=== PATIENT | female | born 1945 | race Caucasian/White ===

== ENCOUNTER → 2016-11-25 | Outpatient (CLI) | payer BC ==
--- NOTE | 2016-11-25 13:27 | DIAGNOSTIC IMAGING REPORT ---
EXTREMITY NONVASCULAR LIMITED HISTORY:71 yearsFemaleAXILLARY LUMP, palpable abnormality of the right axillary region with bruising. COMPARISON: None available. TECHNIQUE: Multiple real-time sonographic images of the right axillary region were obtained assessing grayscale appearance and color flow. FINDINGS: Within the region of the right axilla there is a essentially anechoic linear collection without internal vascularity and somewhat lobulated margins, 2.8 x 1.6 x 0.8 cm. No suspicious mass or definite adenopathy identified. IMPRESSION: Cystic lesion of the right axilla measuring up to 2.8 cm correlates with area of palpable concern. Considering history of bruise within this region , resolving hematoma is considered most likely. Follow-up study may be beneficial. The above report was generated using voice recognition software. It may contain grammatical, syntax or spelling errors. Electronically signed by: Chucho Potter 11/25/2016 1:26 PM Dictated Date/Time: 11/25/2016 1:19 PM
== END | disposition home or self-care (01) ==
LOC: C.ULTR 12:23
PROVIDERS: ATTEND Internal Medicine Hematology & Oncology
DX: R22.31 Localized swelling, mass and lump, right upper limb (principal)

== ENCOUNTER 2018-07-24 11:42 | Inpatient (IN) ==
[2018-07-24 12:17] LABS: Basophils # (auto) 0.01 K/uL (0-0.2); Basophils % (auto) 0.3 %; Eosinophils # (auto) 0.05 K/uL (0-0.5); Eosinophils % (auto) 1.4 %; Hematocrit (blood only) 37.2 % (37-47); Hemoglobin 12.9 g/dL (12.0-16.0); Immature Granulocytes # (auto) 0.02 K/uL (0.00-0.02); Immature Granulocytes % (auto) 0.6 %; Lymphocytes # (auto) 0.24 K/uL (1.2-3.4); Lymphocytes % (auto) 6.8 %; Mean Corpuscular Hgb Conc 34.7 g/dL (32-36); Mean Corpuscular Volume 92.1 fL (80-100); Mean Platelet Volume 9.6 fL (7.4-10.4); Monocytes # (auto) 0.26 K/uL (0.11-0.59); Monocytes % (auto) 7.4 %; Neutrophils # (auto) 2.95 K/uL (1.4-6.5); Neutrophils % (auto) 83.5 %; Platelet Count 168 K/uL (130-400); RDW Coefficient of Variation 12.8 % (11.5-14.5); RDW Standard Deviation 43.1 fL (36.4-46.3); Red Blood Count 4.04 M/uL (4.2-5.4); White Blood Count 3.53 K/uL (4.8-10.8)
[2018-07-24 12:33] LABS: INR 1.1 (0.9-1.1); Partial Thromboplastin Ratio 0.9; Partial Thromboplastin Time 24.3 Seconds (21.0-31.0); Prothrombin Time 10.8 Seconds (9.0-12.0)
[2018-07-24 12:39] LABS: Alanine Aminotransferase 40 U/L (12-78); Albumin Level 3.4 gm/dl (3.4-5.0); Alkaline Phosphatase 79 U/L (45-117); Aspartate Aminotransferase 93 U/L (15-37); Bilirubin,Total 0.5 mg/dl (0.2-1); Blood Urea Nitrogen 27 mg/dl (7-18); Calcium 8.5 mg/dl (8.5-10.1); Carbon Dioxide 29 mmol/L (21-32); Chloride 84 mmol/L (98-107); Est GFR (African American) 39.8; Est GFR (Non-African American) 34.4; Globulin 3.5 gm/dl (2.5-4.0); Glucose 103 mg/dl (70-99); Magnesium 0.7 mg/dl (1.8-2.4); Potassium 2.8 mmol/L (3.5-5.1); Sodium 128 mmol/L (136-145); Total Protein 6.9 gm/dl (6.4-8.2); Troponin I 0.028 ng/ml (0-0.045)
[2018-07-24] MEDS ORDERED: dilTIAZem HCl 5 MG/ML 5 ML VIAL IV STA (12:42)
[2018-07-24] MEDS ORDERED: LACTATED RINGER'S 1,000 ML IV ONE (12:42)
[2018-07-24] MEDS ORDERED: dilTIAZem HCl 125 MG in DEXTROSE 5% 100 ML IV SCH (12:45)
[2018-07-24] MEDS: MAGNESIUM SULFATE / D5W 1 GM/100 ML BAG IV SCH ×2 (13:17→14:15)
--- NOTE | 2018-07-24 13:21 | XRay Report ---
XR chest 1V portable CLINICAL HISTORY: ED critical path. Dyspnea COMPARISON STUDY: 04/05/2018 FINDINGS: The bones soft tissues and hemidiaphragms are normal. The cardiomediastinal silhouette is n ormal. The lungs are clear. The pulmonary vasculature is normal. IMPRESSION: Negative chest. The above report was generated using voice recognition software. It may contain grammatical, syntax or spelling errors. Electronically signed by: Boone Boss M.D. 07/24/2018 1:19 PM
--- NOTE | 2018-07-24 13:43 | CT Scan Report ---
CT cervical spine wo con CT DOSE: HISTORY: Trauma fall TECHNIQUE: Multiaxial CT images of the cervical spine were performed and reformatted in the sagittal and coronal plane without the use of contrast. A dose lowering technique was utilized adhering to th e principles of ALARA. COMPARISON: None. FINDINGS: No fractures. No subluxation. Prevertebral soft tissues and the C1-C2 interval are intact. No pneumothorax. IMPRESSION: No fractures within the cervical spine. Degenerative change throughout the entire cervical region. The above report was generated using voice recognition software. It may contain grammatical, syntax or spelling errors. Electronically signed by: Boone Boss M.D. 07/24/2018 1:42 PM
--- NOTE | 2018-07-24 13:45 | CT Scan Report ---
CT head/brain wo con CLINICAL HISTORY: 72 years-old Female presenting with fall, confusion. TECHNIQUE: Multidetector CT imaging of the head was performed without the use of intravenous contrast . IV contrast: None. One or more dose lowering techniques were used consistent with the principles of ALARA (as low as reasonably achievable), including automatic exposure control, mA or kV adjustment t o individual patient size, and/or use of iterative reconstruction. COMPARISON: 04/05/2018. CT DOSE (mGy.cm): The estimated cumulative dose is 863.75 mGy.cm. FINDINGS: Chief Underwriter topogram: Unremarkable. Proportional ventricular and sulcal prominence, likely age-related parenchymal volume loss. No hemorr conrad. Periventricular and subcortical white matter hypoattenuation, nonspecific but likely indicative of chronic small vessel ischemic change. No acute territorial infarct. No mass effect or midline kailash ft. No extra-axial fluid collection. Paranasal sinuses and mastoid air cells clear. Calvarium intact. IMPRESSION: 1. Chronic small vessel ischemic change. No acute intracranial abnormality. Electronically signed by: Inocente Patton M.D. 07/24/2018 1:44 PM
[2018-07-24] MEDS ORDERED: dilTIAZem HCl 5 MG/ML 5 ML VIAL IV ONE (14:13)
--- NOTE | 2018-07-24 14:17 | Emergency Department Note ---
Entered by Kristy Meraz acting as a scribe for Escobar Guerrero M.D. History of Present Illness General Chief complaint: Altered Mental Status Stated complaint: Fall Source: patient Mode of arrival: ambulatory Limitations: no limitations History of Present Illness Onset (ago): day(s) (this morning. ) Location: head (altered mental status) Pain Consistency: + other (episode) Quality: + other (dizziness) Associated symptoms: + other (The patient complains of dizziness.); no chest pain, no shortness of breath and no syncope The patient is a 72 year old female with a history of falls who presents to the ED with complaints of an episode altered mental status that onset this morning. She notes that she was trying to lift a table to take up a flight of stairs and when she turned a corner, she caught herself on the carpet. She notes that she fell backwards in a seated position. The patient denies being hurt by the table. The patient complains of dizziness. The patient denies loss of consciousness, chest pain, and shortness of breath. She notes that she does not feel confused but that she had trouble answering some questions she was asked by staff. The patient states that she did not eat today. She notes that she lives by herself. She denies drinking alcohol today but states that she had 2 drinks last night. The patient states that she drinks a big glass of vodka and that people tell her that she should cut down on her alcohol intake. The patient notes that she takes Xanax at night to help her sleep. Home Medications Home Medications Medication Instructions Recorded Confirmed Type alprazolam [Xanax] 1 mg PO BID 07/24/18 07/24/18 History amlodipine 2.5 mg PO DAILY 07/24/18 07/24/18 History metoprolol succinate 25 mg PO DAILY 07/24/18 07/24/18 History trazodone 50 mg PO DAILY 07/24/18 07/24/18 History Allergies Allergy/AdvReac Type Severity Reaction Status Date / Time Penicillins Allergy Unknown CAN'T Verified 07/24/18 14:09 REMEMBER [facility] Allergy Unknown CAN'T Uncoded 07/24/18 14:09 REMEMBER-SEE COMMENT Past Med/Surg History Medical History Hx of falling Depression Insomnia Tobacco abuse Chronic alcohol abuse H/O: hysterectomy Pneumonia (Resolved) Hypertension (Chronic) Social History Preferred Language: Montenegrin Communication Ability: Effective 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 and A total of 10 systems reviewed and were otherwise negative Physical Exam Vital Signs Vital Signs - 24 hr 07/24/18 11:36 07/24/18 11:56 07/24/18 11:58 Temperature 36.9 C Temperature Source Oral Sepsis Recent Fever Within 48 Hours No Sepsis New/Unexplained Change in Mental Status No Sepsis Action Taken by Nursing No Action Required Pulse Rate 127 H 125 H 134 H Pulse Rate [Right Radial] Pulse Rate from SpO2 Sensor 120 H 134 H Pulse Rhythm Irregular Pulse Rhythm [Right Radial] Pulse Strength Normal Pulse Strength [Right Radial] Respiratory Rate 22 23 20 Respiratory Effort / Characteristics Non-Labored Spontaneous Respiratory Depth Normal Respiratory Pattern Regular Blood Pressure 100/88 100/88 Blood Pressure [Right Arm] Blood Pressure Mean 92 92 Blood Pressure Mean [Right Arm] Blood Pressure Position Lying Blood Pressure Position [Right Arm] Pulse Oximetry 93 Pulse Oximetry [Right Index Finger] Oxygen Delivery Method Room Air Oxygen Delivery Method [Right Index Finger] 07/24/18 12:00 07/24/18 12:01 07/24/18 12:09 Temperature Temperature Source Sepsis Recent Fever Within 48 Hours Sepsis New/Unexplained Change in Mental Status Sepsis Action Taken by Nursing Pulse Rate 124 H 130 H 127 H Pulse Rate [Right Radial] Pulse Rate from SpO2 Sensor 112 H 95 H Pulse Rhythm Pulse Rhythm [Right Radial] Pulse Strength Pulse Strength [Right Radial] Respiratory Rate 17 21 22 Respiratory Effort / Characteristics Respiratory Depth Respiratory Pattern Blood Pressure 106/79 Blood Pressure [Right Arm] Blood Pressure Mean 88 Blood Pressure Mean [Right Arm] Blood Pressure Position Blood Pressure Position [Right Arm] Pulse Oximetry 99 95 93 Pulse Oximetry [Right Index Finger] Oxygen Delivery Method Room Air Oxygen Delivery Method [Right Index Finger] 07/24/18 12:10 07/24/18 12:20 07/24/18 12:30 Temperature Temperature Source Sepsis Recent Fever Within 48 Hours Sepsis New/Unexplained Change in Mental Status Sepsis Action Taken by Nursing Pulse Rate 115 H 113 H 120 H Pulse Rate [Right Radial] Pulse Rate from SpO2 Sensor 107 H 109 H 98 H Pulse Rhythm Pulse Rhythm [Right Radial] Pulse Strength Pulse Strength [Right Radial] Respiratory Rate 20 21 23 Respiratory Effort / Characteristics Respiratory Depth Respiratory Pattern Blood Pressure 88/66 L Blood Pressure [Right Arm] Blood Pressure Mean 73 Blood Pressure Mean [Right Arm] Blood Pressure Position Blood Pressure Position [Right Arm] Pulse Oximetry 99 99 97 Pulse Oximetry [Right Index Finger] Oxygen Delivery Method Oxygen Delivery Method [Right Index Finger] 07/24/18 12:31 07/24/18 12:40 07/24/18 12:50 Temperature Temperature Source Sepsis Recent Fever Within 48 Hours Sepsis New/Unexplained Change in Mental Status Sepsis Action Taken by Nursing Pulse Rate 111 H 105 H 131 H Pulse Rate [Right Radial] Pulse Rate from SpO2 Sensor 87 103 H 116 H Pulse Rhythm Pulse Rhythm [Right Radial] Pulse Strength Pulse Strength [Right Radial] Respiratory Rate 18 20 25 H Respiratory Effort / Characteristics Respiratory Depth Respiratory Pattern Blood Pressure Blood Pressure [Right Arm] Blood Pressure Mean Blood Pressure Mean [Right Arm] Blood Pressure Position Blood Pressure Position [Right Arm] Pulse Oximetry 94 95 Pulse Oximetry [Right Index Finger] Oxygen Delivery Method Oxygen Delivery Method [Right Index Finger] 07/24/18 13:00 07/24/18 13:10 07/24/18 13:20 Temperature Temperature Source Sepsis Recent Fever Within 48 Hours Sepsis New/Unexplained Change in Mental Status Sepsis Action Taken by Nursing Pulse Rate 110 H 113 H 103 H Pulse Rate [Right Radial] Pulse Rate from SpO2 Sensor 106 H 105 H 91 H Pulse Rhythm Pulse Rhythm [Right Radial] Pulse Strength Pulse Strength [Right Radial] Respiratory Rate 25 H 27 H 21 Respiratory Effort / Characteristics Respiratory Depth Respiratory Pattern Blood Pressure Blood Pressure [Right Arm] Blood Pressure Mean Blood Pressure Mean [Right Arm] Blood Pressure Position Blood Pressure Position [Right Arm] Pulse Oximetry 96 95 Pulse Oximetry [Right Index Finger] Oxygen Delivery Method Oxygen Delivery Method [Right Index Finger] 07/24/18 13:22 07/24/18 13:39 07/24/18 13:40 Temperature Temperature Source Sepsis Recent Fever Within 48 Hours Sepsis New/Unexplained Change in Mental Status Sepsis Action Taken by Nursing Pulse Rate 101 H 93 H 110 H Pulse Rate [Right Radial] Pulse Rate from SpO2 Sensor 86 92 H 107 H Pulse Rhythm Pulse Rhythm [Right Radial] Pulse Strength Pulse Strength [Right Radial] Respiratory Rate 26 H 24 19 Respiratory Effort / Characteristics Respiratory Depth Respiratory Pattern Blood Pressure 110/79 Blood Pressure [Right Arm] Blood Pressure Mean 89 Blood Pressure Mean [Right Arm] Blood Pressure Position Blood Pressure Position [Right Arm] Pulse Oximetry 94 99 Pulse Oximetry [Right Index Finger] Oxygen Delivery Method Oxygen Delivery Method [Right Index Finger] 07/24/18 13:50 07/24/18 14:00 07/24/18 14:01 Temperature Temperature Source Sepsis Recent Fever Within 48 Hours Sepsis New/Unexplained Change in Mental Status Sepsis Action Taken by Nursing Pulse Rate 85 82 78 Pulse Rate [Right Radial] Pulse Rate from SpO2 Sensor 86 87 91 H Pulse Rhythm Pulse Rhythm [Right Radial] Pulse Strength Pulse Strength [Right Radial] Respiratory Rate 20 12 18 Respiratory Effort / Characteristics Respiratory Depth Respiratory Pattern Blood Pressure 116/77 Blood Pressure [Right Arm] Blood Pressure Mean 90 Blood Pressure Mean [Right Arm] Blood Pressure Position Blood Pressure Position [Right Arm] Pulse Oximetry 98 97 Pulse Oximetry [Right Index Finger] Oxygen Delivery Method Oxygen Delivery Method [Right Index Finger] 07/24/18 14:10 07/24/18 14:20 07/24/18 14:30 Temperature Temperature Source Sepsis Recent Fever Within 48 Hours Sepsis New/Unexplained Change in Mental Status Sepsis Action Taken by Nursing Pulse Rate 99 H 83 86 Pulse Rate [Right Radial] Pulse Rate from SpO2 Sensor 95 H 81 88 Pulse Rhythm Pulse Rhythm [Right Radial] Pulse Strength Pulse Strength [Right Radial] Respiratory Rate 21 21 18 Respiratory Effort / Characteristics Respiratory Depth Respiratory Pattern Blood Pressure 119/77 Blood Pressure [Right Arm] Blood Pressure Mean 91 Blood Pressure Mean [Right Arm] Blood Pressure Position Blood Pressure Position [Right Arm] Pulse Oximetry 98 96 99 Pulse Oximetry [Right Index Finger] Oxygen Delivery Method Oxygen Delivery Method [Right Index Finger] 07/24/18 14:31 07/24/18 14:40 07/24/18 14:50 Temperature Temperature Source Sepsis Recent Fever Within 48 Hours Sepsis New/Unexplained Change in Mental Status Sepsis Action Taken by Nursing Pulse Rate 84 84 76 Pulse Rate [Right Radial] Pulse Rate from SpO2 Sensor 81 81 86 Pulse Rhythm Pulse Rhythm [Right Radial] Pulse Strength Pulse Strength [Right Radial] Respiratory Rate 21 20 20 Respiratory Effort / Characteristics Respiratory Depth Respiratory Pattern Blood Pressure Blood Pressure [Right Arm] Blood Pressure Mean Blood Pressure Mean [Right Arm] Blood Pressure Position Blood Pressure Position [Right Arm] Pulse Oximetry 97 99 93 Pulse Oximetry [Right Index Finger] Oxygen Delivery Method Oxygen Delivery Method [Right Index Finger] 07/24/18 15:00 07/24/18 15:01 07/24/18 15:10 Temperature Temperature Source Sepsis Recent Fever Within 48 Hours Sepsis New/Unexplained Change in Mental Status Sepsis Action Taken by Nursing Pulse Rate 85 88 90 Pulse Rate [Right Radial] Pulse Rate from SpO2 Sensor 92 H 91 H 84 Pulse Rhythm Pulse Rhythm [Right Radial] Pulse Strength Pulse Strength [Right Radial] Respiratory Rate 16 28 H 18 Respiratory Effort / Characteristics Respiratory Depth Respiratory Pattern Blood Pressure 129/85 Blood Pressure [Right Arm] Blood Pressure Mean 99 Blood Pressure Mean [Right Arm] Blood Pressure Position Blood Pressure Position [Right Arm] Pulse Oximetry 94 96 96 Pulse Oximetry [Right Index Finger] Oxygen Delivery Method Oxygen Delivery Method [Right Index Finger] 07/24/18 15:20 07/24/18 15:30 07/24/18 15:31 Temperature Temperature Source Sepsis Recent Fever Within 48 Hours Sepsis New/Unexplained Change in Mental Status Sepsis Action Taken by Nursing Pulse Rate 81 90 84 Pulse Rate [Right Radial] Pulse Rate from SpO2 Sensor 91 H 88 84 Pulse Rhythm Pulse Rhythm [Right Radial] Pulse Strength Pulse Strength [Right Radial] Respiratory Rate 14 21 21 Respiratory Effort / Characteristics Respiratory Depth Respiratory Pattern Blood Pressure 124/89 Blood Pressure [Right Arm] Blood Pressure Mean 100 Blood Pressure Mean [Right Arm] Blood Pressure Position Blood Pressure Position [Right Arm] Pulse Oximetry 94 93 94 Pulse Oximetry [Right Index Finger] Oxygen Delivery Method Oxygen Delivery Method [Right Index Finger] 07/24/18 15:40 07/24/18 15:50 07/24/18 16:00 Temperature Temperature Source Sepsis Recent Fever Within 48 Hours Sepsis New/Unexplained Change in Mental Status Sepsis Action Taken by Nursing Pulse Rate 97 H 100 H 92 H Pulse Rate [Right Radial] Pulse Rate from SpO2 Sensor 94 H 90 82 Pulse Rhythm Pulse Rhythm [Right Radial] Pulse Strength Pulse Strength [Right Radial] Respiratory Rate 21 22 22 Respiratory Effort / Characteristics Respiratory Depth Respiratory Pattern Blood Pressure Blood Pressure [Right Arm] Blood Pressure Mean Blood Pressure Mean [Right Arm] Blood Pressure Position Blood Pressure Position [Right Arm] Pulse Oximetry 96 78 L 93 Pulse Oximetry [Right Index Finger] Oxygen Delivery Method Oxygen Delivery Method [Right Index Finger] 07/24/18 16:01 07/24/18 16:02 07/24/18 16:10 Temperature Temperature Source Sepsis Recent Fever Within 48 Hours Sepsis New/Unexplained Change in Mental Status Sepsis Action Taken by Nursing Pulse Rate 84 92 H 89 Pulse Rate [Right Radial] Pulse Rate from SpO2 Sensor 93 H 90 92 H Pulse Rhythm Pulse Rhythm [Right Radial] Pulse Strength Pulse Strength [Right Radial] Respiratory Rate 23 21 23 Respiratory Effort / Characteristics Respiratory Depth Respiratory Pattern Blood Pressure 127/74 Blood Pressure [Right Arm] Blood Pressure Mean 91 Blood Pressure Mean [Right Arm] Blood Pressure Position Blood Pressure Position [Right Arm] Pulse Oximetry 91 98 98 Pulse Oximetry [Right Index Finger] Oxygen Delivery Method Oxygen Delivery Method [Right Index Finger] 07/24/18 16:20 07/24/18 16:30 07/24/18 16:31 Temperature Temperature Source Sepsis Recent Fever Within 48 Hours Sepsis New/Unexplained Change in Mental Status Sepsis Action Taken by Nursing Pulse Rate 95 H 89 88 Pulse Rate [Right Radial] Pulse Rate from SpO2 Sensor 87 83 88 Pulse Rhythm Pulse Rhythm [Right Radial] Pulse Strength Pulse Strength [Right Radial] Respiratory Rate 23 22 19 Respiratory Effort / Characteristics Respiratory Depth Respiratory Pattern Blood Pressure 127/80 Blood Pressure [Right Arm] Blood Pressure Mean 95 Blood Pressure Mean [Right Arm] Blood Pressure Position Blood Pressure Position [Right Arm] Pulse Oximetry 93 97 97 Pulse Oximetry [Right Index Finger] Oxygen Delivery Method Oxygen Delivery Method [Right Index Finger] 07/24/18 16:40 07/24/18 17:19 07/24/18 17:27 Temperature 36.9 C Temperature Source Oral Sepsis Recent Fever Within 48 Hours Sepsis New/Unexplained Change in Mental Status Sepsis Action Taken by Nursing Pulse Rate 93 H Pulse Rate [Right Radial] Pulse Rate from SpO2 Sensor 85 Pulse Rhythm Pulse Rhythm [Right Radial] Regular Pulse Strength Pulse Strength [Right Radial] Normal Respiratory Rate 22 16 Respiratory Effort / Characteristics Non-Labored Respiratory Depth Normal Respiratory Pattern Regular Blood Pressure Blood Pressure [Right Arm] 126/88 Blood Pressure Mean Blood Pressure Mean [Right Arm] 100 Blood Pressure Position Blood Pressure Position [Right Arm] Lying Pulse Oximetry 95 93 Pulse Oximetry [Right Index Finger] 93 Oxygen Delivery Method Room Air Oxygen Delivery Method [Right Index Finger] Room Air 07/24/18 18:04 07/24/18 18:56 Temperature 37.0 C Temperature Source Oral Sepsis Recent Fever Within 48 Hours Sepsis New/Unexplained Change in Mental Status Sepsis Action Taken by Nursing Pulse Rate 102 H Pulse Rate [Right Radial] 84 Pulse Rate from SpO2 Sensor Pulse Rhythm Pulse Rhythm [Right Radial] Pulse Strength Pulse Strength [Right Radial] Respiratory Rate 20 Respiratory Effort / Characteristics Respiratory Depth Respiratory Pattern Blood Pressure Blood Pressure [Right Arm] 121/85 Blood Pressure Mean Blood Pressure Mean [Right Arm] 97 Blood Pressure Position Blood Pressure Position [Right Arm] Lying Pulse Oximetry 98 Pulse Oximetry [Right Index Finger] Oxygen Delivery Method Room Air Oxygen Delivery Method [Right Index Finger] GENERAL: Awake, alert, in no distress HENT: Normocephalic, atraumatic. Oropharynx unremarkable. EYES: Normal conjunctiva. Sclera non-icteric. NECK: Supple. No nuchal rigidity. RESPIRATORY: Clear to auscultation. No wheezes. Normal respiratory effort. CARDIAC: tachycardic rate. Irregular rhythm. Extremities warm. GI: Soft, non-distended. No tenderness to palpation. No rebound or guarding. RECTAL: Deferred. MUSCULOSKELETAL: Atraumatic. Chest examination reveals no tenderness. LOWER EXTREMITIES: Calves are equal size bilaterally and non-tender. No edema NEURO: Slightly slow to respond. No sensory or motor deficits noted. No facial droop. SKIN: Warm and dry. No rash or jaundice noted. Course 1222: Past medical records reviewed. The patient was evaluated in room C12B, and a complete history and physical examination were performed. 1410: I reviewed the patient's case with Dr. Chavarria Hospitalist - [facility]. He will evaluate the patient for further management. 1443: I reviewed the patient's case with Alee Murillo PA-C [place] [facility]ist [facility]. She will evaluate the patient for further management. Administered Medications Alprazolam (Xanax) 1 mg PO HS MAURISIO Stop: 08/23/18 20:59 Last Admin: 07/24/18 20:07 Dose: 1 mg Documented by: [id number] Diltiazem HCl 125 mg/ Dextrose 125 mls @ 5 mls/hr IV .Q24H MAURISIO; Protocol Stop: 08/23/18 12:44 Last Admin: 07/24/18 13:17 Dose: 5 mg/hr, 5 mls/hr Documented by: [id number] Cosigned by: [id number] Magnesium Oxide (Mag-Ox) 400 mg PO BID MAURISIO Stop: 08/23/18 20:59 Last Admin: 07/24/18 20:05 Dose: 400 mg Documented by: [id number] Thiamine HCl (Vitamin B-1) 100 mg PO QAM MAURISIO Stop: 08/23/18 17:29 Last Admin: 07/24/18 18:11 Dose: 100 mg Documented by: [id number] Discontinued Medications Diltiazem HCl (Cardizem) 5 mg IV NOW STA Stop: 07/24/18 12:43 Last Admin: 07/24/18 14:18 Dose: Not Given Documented by: [id number] Diltiazem HCl (Cardizem) Confirm Administered Dose 25 mg IV .STK-MED ONE Stop: 07/24/18 14:14 Last Admin: 07/24/18 14:18 Dose: Not Given Documented by: [id number] Gabapentin (Neurontin) 600 mg PO NOW ONE Stop: 07/24/18 18:01 Last Admin: 07/24/18 18:11 Dose: 600 mg Documented by: [id number] Lactated Ringer's (Lr) 1,000 mls @ 999 mls/hr IV .Q1H1M ONE Stop: 07/24/18 13:42 Last Infusion: 07/24/18 14:33 Dose: 0 mls/hr Documented by: [id number] Admin: 07/24/18 13:19 Dose: 999 mls/hr Documented by: [id number] Magnesium Sulfate/Dextrose (Magnesium Sulfate / D5w) 1 gm in 100 mls @ 100 mls/hr IV Q1H MAURISIO Stop: 07/24/18 14:44 Last Infusion: 07/24/18 15:12 Dose: 0 mls/hr Documented by: [id number] Admin: 07/24/18 14:15 Dose: 100 mls/hr Documented by: [id number] Infusion: 07/24/18 14:15 Dose: 100 mls/hr Documented by: [id number] Admin: 07/24/18 13:17 Dose: 100 mls/hr Documented by: [id number] Multivitamins 10 ml/ Thiamine HCl 100 mg/ Folic Acid 1 mg/Sodium Chloride 1,011.2 mls @ 500 mls/hr IV .Q2H2M MAURISIO Stop: 07/24/18 19:20 Last Admin: 07/24/18 18:12 Dose: 500 mls/hr Documented by: [id number] Potassium Chloride (Klor-Con M20) 40 meq PO NOW STA Stop: 07/24/18 15:58 Last Admin: 07/24/18 16:55 Dose: 40 meq Documented by: [id number] Potassium Chloride (Klor-Con M20) 40 meq PO NOW STA Stop: 07/24/18 18:53 Last Admin: 07/24/18 20:05 Dose: 40 meq Documented by: [id number] Medical Decision Making Differential Diagnosis Differential Diagnoses Include: Acute coronary syndrome, myocardial infarction, CVA, TIA, anemia, infection, pneumonia, UTI, pyelonephritis, poor nutrition, dehydration, electrolyte disturbance,hypoglycemia. Medical Records Attestation: I reviewed the patient's medical records. Home Medications Current Medication List: was personally reviewed by me Laboratory Data Attestation: I reviewed the patient's lab results. Result diagrams: 07/24/18 12:00 07/24/18 17:55 Lab Results 07/24/18 07/24/18 07/24/18 Range/Units 12:00 12:00 12:00 WBC 3.53 L (4.8-10.8) K/uL RBC 4.04 L (4.2-5.4) M/uL Hgb 12.9 (12.0-16.0) g/dL Hct 37.2 (37-47) % MCV 92.1 (80-100) fL MCH 31.9 (25-34) pg MCHC 34.7 (32-36) g/dL RDW Std Deviation 43.1 (36.4-46.3) fL RDW Coeff of Mario 12.8 (11.5-14.5) % Plt Count 168 (130-400) K/uL MPV 9.6 (7.4-10.4) fL Immature Gran % (Auto) 0.6 % Neut % (Auto) 83.5 % Lymph % (Auto) 6.8 % Lipscomb % (Auto) 7.4 % Eos % (Auto) 1.4 % Baso % (Auto) 0.3 % Immature Gran # (Auto) 0.02 (0.00-0.02) K/uL Neut # (Auto) 2.95 (1.4-6.5) K/uL Lymph # (Auto) 0.24 L (1.2-3.4) K/uL Lipscomb # (Auto) 0.26 (0.11-0.59) K/uL Eos # (Auto) 0.05 (0-0.5) K/uL Baso # (Auto) 0.01 (0-0.2) K/uL PT 10.8 (9.0-12.0) Seconds INR 1.1 (0.9-1.1) APTT 24.3 (21.0-31.0) Seconds PTT Ratio 0.9 Sodium 128 L (136-145) mmol/L Potassium 2.8 L (3.5-5.1) mmol/L Chloride 84 L (98-107) mmol/L Carbon Dioxide 29 (21-32) mmol/L Anion Gap 15.0 H (3-11) BUN 27 H (7-18) mg/dl Creatinine 1.52 H (0.6-1.2) mg/dl Est Cr Clr Drug Dosing Not Reportable Est GFR ( Amer) 39.8 Est GFR (Non-Af Amer) 34.4 BUN/Creatinine Ratio 18.0 (10-20) Glucose 103 H (70-99) mg/dl POC Glucose (70-99) Calcium 8.5 (8.5-10.1) mg/dl Magnesium 0.7 L* (1.8-2.4) mg/dl Total Bilirubin 0.5 (0.2-1) mg/dl AST 93 H (15-37) U/L ALT 40 (12-78) U/L Alkaline Phosphatase 79 (45-117) U/L Troponin I 0.028 (0-0.045) ng/ml Total Protein 6.9 (6.4-8.2) gm/dl Albumin 3.4 (3.4-5.0) gm/dl Globulin 3.5 (2.5-4.0) gm/dl Albumin/Globulin Ratio 1.0 (0.9-2) TSH 2.260 (0.300-4.500) uIu/ml Urine Color Urine Appearance (Clear) Urine pH (4.5-7.5) Ur Specific [place] (1.000-1.030) Urine Protein (Negative) Urine Glucose (UA) (Negative) Urine Ketones (Negative) Urine Blood (Negative) Urine Nitrite (Negative) Urine Bilirubin (Negative) Urine Urobilinogen (Negative) Ur Leukocyte Esterase (Negative) Urine WBC (Auto) (0-5) /hpf Urine RBC (Auto) (0-4) /hpf U Hyaline Cast (Auto) (0-5) /lpf U Epithel Cells (Auto) (0-5) /lpf Urine Bacteria (Auto) (Negative) Ur Renal Epithelial Cell Urine Opiates Screen (Neg) Ur Methadone, Qual (Neg) Urine Barbiturates (Neg) Ur Phencyclidine (PCP) (Neg) U Amphetamin/Meth Scrn (Neg) MDMA (Ecstasy) Screen (Neg) U Benzodiazepines Scrn (Neg) Ur Cocaine Metabolite (Neg) U Marijuana (THC) Screen (Neg) Ethyl Alcohol mg/dL (0-3) mg/dl 07/24/18 07/24/18 07/24/18 Range/Units 12:17 12:50 17:40 WBC (4.8-10.8) K/uL RBC (4.2-5.4) M/uL Hgb (12.0-16.0) g/dL Hct (37-47) % MCV (80-100) fL MCH (25-34) pg MCHC (32-36) g/dL RDW Std Deviation (36.4-46.3) fL RDW Coeff of Mario (11.5-14.5) % Plt Count (130-400) K/uL MPV (7.4-10.4) fL Immature Gran % (Auto) % Neut % (Auto) % Lymph % (Auto) % Lipscomb % (Auto) % Eos % (Auto) % Baso % (Auto) % Immature Gran # (Auto) (0.00-0.02) K/uL Neut # (Auto) (1.4-6.5) K/uL Lymph # (Auto) (1.2-3.4) K/uL Lipscomb # (Auto) (0.11-0.59) K/uL Eos # (Auto) (0-0.5) K/uL Baso # (Auto) (0-0.2) K/uL PT (9.0-12.0) Seconds INR (0.9-1.1) APTT (21.0-31.0) Seconds PTT Ratio Sodium (136-145) mmol/L Potassium (3.5-5.1) mmol/L Chloride (98-107) mmol/L Carbon Dioxide (21-32) mmol/L Anion Gap (3-11) BUN (7-18) mg/dl Creatinine (0.6-1.2) mg/dl Est Cr Clr Drug Dosing Est GFR ( Amer) Est GFR (Non-Af Amer) BUN/Creatinine Ratio (10-20) Glucose (70-99) mg/dl POC Glucose 112 H (70-99) Calcium (8.5-10.1) mg/dl Magnesium (1.8-2.4) mg/dl Total Bilirubin (0.2-1) mg/dl AST (15-37) U/L ALT (12-78) U/L Alkaline Phosphatase (45-117) U/L Troponin I (0-0.045) ng/ml Total Protein (6.4-8.2) gm/dl Albumin (3.4-5.0) gm/dl Globulin (2.5-4.0) gm/dl Albumin/Globulin Ratio (0.9-2) TSH (0.300-4.500) uIu/ml Urine Color Yellow Urine Appearance Clear (Clear) Urine pH 5.5 (4.5-7.5) Ur Specific [place] 1.018 (1.000-1.030) Urine Protein Negative (Negative) Urine Glucose (UA) Trace H (Negative) Urine Ketones 1+ H (Negative) Urine Blood Negative (Negative) Urine Nitrite Negative (Negative) Urine Bilirubin Negative (Negative) Urine Urobilinogen Negative (Negative) Ur Leukocyte Esterase 1+ H (Negative) Urine WBC (Auto) 5-10 H (0-5) /hpf Urine RBC (Auto) 5-10 H (0-4) /hpf U Hyaline Cast (Auto) 5-10 H (0-5) /lpf U Epithel Cells (Auto) >30 H (0-5) /lpf Urine Bacteria (Auto) Negative (Negative) Ur Renal Epithelial Cell Not Reportable Urine Opiates Screen (Neg) Ur Methadone, Qual (Neg) Urine Barbiturates (Neg) Ur Phencyclidine (PCP) (Neg) U Amphetamin/Meth Scrn (Neg) MDMA (Ecstasy) Screen (Neg) U Benzodiazepines Scrn (Neg) Ur Cocaine Metabolite (Neg) U Marijuana (THC) Screen (Neg) Ethyl Alcohol mg/dL < 3.0 (0-3) mg/dl 07/24/18 07/24/18 Range/Units 17:40 17:55 WBC (4.8-10.8) K/uL RBC (4.2-5.4) M/uL Hgb (12.0-16.0) g/dL Hct (37-47) % MCV (80-100) fL MCH (25-34) pg MCHC (32-36) g/dL RDW Std Deviation (36.4-46.3) fL RDW Coeff of Mario (11.5-14.5) % Plt Count (130-400) K/uL MPV (7.4-10.4) fL Immature Gran % (Auto) % Neut % (Auto) % Lymph % (Auto) % Lipscomb % (Auto) % Eos % (Auto) % Baso % (Auto) % Immature Gran # (Auto) (0.00-0.02) K/uL Neut # (Auto) (1.4-6.5) K/uL Lymph # (Auto) (1.2-3.4) K/uL Lipscomb # (Auto) (0.11-0.59) K/uL Eos # (Auto) (0-0.5) K/uL Baso # (Auto) (0-0.2) K/uL PT (9.0-12.0) Seconds INR (0.9-1.1) APTT (21.0-31.0) Seconds PTT Ratio Sodium 127 L (136-145) mmol/L Potassium 2.8 L (3.5-5.1) mmol/L Chloride 84 L (98-107) mmol/L Carbon Dioxide 28 (21-32) mmol/L Anion Gap 15.0 H (3-11) BUN 26 H (7-18) mg/dl Creatinine 1.33 H (0.6-1.2) mg/dl Est Cr Clr Drug Dosing 34.7 Est GFR ( Amer) 46.8 Est GFR (Non-Af Amer) 40.4 BUN/Creatinine Ratio 19.3 (10-20) Glucose 108 H (70-99) mg/dl POC Glucose (70-99) Calcium 8.2 L (8.5-10.1) mg/dl Magnesium 1.5 L (1.8-2.4) mg/dl Total Bilirubin (0.2-1) mg/dl AST (15-37) U/L ALT (12-78) U/L Alkaline Phosphatase (45-117) U/L Troponin I 0.036 (0-0.045) ng/ml Total Protein (6.4-8.2) gm/dl Albumin (3.4-5.0) gm/dl Globulin (2.5-4.0) gm/dl Albumin/Globulin Ratio (0.9-2) TSH (0.300-4.500) uIu/ml Urine Color Urine Appearance (Clear) Urine pH (4.5-7.5) Ur Specific [place] (1.000-1.030) Urine Protein (Negative) Urine Glucose (UA) (Negative) Urine Ketones (Negative) Urine Blood (Negative) Urine Nitrite (Negative) Urine Bilirubin (Negative) Urine Urobilinogen (Negative) Ur Leukocyte Esterase (Negative) Urine WBC (Auto) (0-5) /hpf Urine RBC (Auto) (0-4) /hpf U Hyaline Cast (Auto) (0-5) /lpf U Epithel Cells (Auto) (0-5) /lpf Urine Bacteria (Auto) (Negative) Ur Renal Epithelial Cell Urine Opiates Screen Neg (Neg) Ur Methadone, Qual Neg (Neg) Urine Barbiturates Neg (Neg) Ur Phencyclidine (PCP) Neg (Neg) U Amphetamin/Meth Scrn Neg (Neg) MDMA (Ecstasy) Screen Neg (Neg) U Benzodiazepines Scrn Pos H (Neg) Ur Cocaine Metabolite Neg (Neg) U Marijuana (THC) Screen Neg (Neg) Ethyl Alcohol mg/dL (0-3) mg/dl Imaging Data Radiologist's Impression: Radiology results as stated below per my review and the radiologist's interpretation: CT head/brain wo con CLINICAL HISTORY: 72 years-old Female presenting with fall, confusion. TECHNIQUE: Multidetector CT imaging of the head was performed without the use of intravenous contrast. IV contrast: None. One or more dose lowering techniques were used consistent with the principles of ALARA (as low as reasonably achievable), including automatic exposure control, mA or kV adjustment to individual patient size, and/or use of iterative reconstruction. COMPARISON: 04/05/2018. CT DOSE (mGy.cm): The estimated cumulative dose is 863.75 mGy.cm. FINDINGS: Data Conversion Operator topogram: Unremarkable. Proportional ventricular and sulcal prominence, likely age-related parenchymal volume loss. No hemorrhage. Periventricular and subcortical white matter hypoattenuation, nonspecific but likely indicative of chronic small vessel ischemic change. No acute territorial infarct. No mass effect or midline shift. No extra-axial fluid collection. Paranasal sinuses and mastoid air cells clear. Calvarium intact. IMPRESSION: 1. Chronic small vessel ischemic change. No acute intracranial abnormality. Electronically signed by: Inocente Patton M.D. 07/24/2018 1:44 PM Dictated: 07/24/18 1340 Transcribed: 07/24/[address] cervical spine wo con CT DOSE: HISTORY: Trauma fall TECHNIQUE: Multiaxial CT images of the cervical spine were performed and reformatted in the sagittal and coronal plane without the use of contrast. A dose lowering technique was utilized adhering to the principles of ALARA. COMPARISON: None. FINDINGS: No fractures. No subluxation. Prevertebral soft tissues and the C1-C2 interval are intact. No pneumothorax. IMPRESSION: No fractures within the cervical spine. Degenerative change throughout the entire cervical region. The above report was generated using voice recognition software. It may contain grammatical, syntax or spelling errors. Electronically signed by: Boone Boss M.D. 07/24/2018 1:42 PM Dictated: 07/24/18 1339 Transcribed: 07/24/18 1339 XR chest 1V portable CLINICAL HISTORY: ED critical path. Dyspnea COMPARISON STUDY: 04/05/2018 FINDINGS: The bones soft tissues and hemidiaphragms are normal. The cardiomediastinal silhouette is normal. The lungs are clear. The pulmonary vasculature is normal. IMPRESSION: Negative chest. The above report was generated using voice recognition software. It may contain grammatical, syntax or spelling errors. Electronically signed by: Boone Boss M.D. 07/24/2018 1:19 PM Dictated: 07/24/18 1319 Transcribed: 07/24/18 1319 ECG Data Attestation: I personally reviewed and interpreted this ECG as follows: Indication: altered mental status Rate (beats per minute): 135 Rhythm: atrial fibrillation Findings: + other (Nonspecific T wave changes, normal axis); no ST elevation Blood Pressure Blood Pressure Findings: Normal blood pressure Head Trauma GCS Score: 15 MDM Narrative 72-year-old female with a history of alcohol abuse and hypertension presenting today after falling at home. Denies alcohol use today but states nightly. States he was moving a table and fell backwards. Patient was initially quickly altered at the scene but alert and oriented here. Given this a CT of the head and neck are complete without evidence of acute trauma or intracranial finding. Initially on evaluation here was noted to be in a rapid atrial fibrillation and somewhat hypotensive. Started on Cardizem drip and given a small fluid bolus. No Cardizem bolus was given. Patient had improvement of tachycardia and blood pressure with this. Noted to have a significantly low magnesium and potassium likely secondary to her history of alcohol abuse. Patient does endorse feeling somewhat weak and dizzy at times. Likely related to her electrolyte abnormalities. Magnesium replacement was ordered and some lactated Ringer's was initially ordered. Given her findings believe admission for further evaluation is warranted. Did not start acute anticoagulation given the patient's history of falls and alcohol abuse. Will defer to the inpatient team. Impression & Plan Weakness, Hypomagnesemia, Hypokalemia, New onset atrial fibrillation Critical Care Time I have personally spent 30 minutes of critical care time in the direct management of this patient. This includes bedside care, interpretation of diagnostic studies, and testing, discussion with consultants, patient, and family members, and other required patient management activities. These 30 minutes is in excess of all separately billable procedures. Critical Care Time: Yes Total Critical Care Time: 30 Discharge Plan Visit Data *Final* Discharge Date/Time: 07/24/18 16:49 Chief Complaint: Altered Mental Status Stated Complaint: Fall ED Provider: Escobar Guerrero Discharge Problem: Weakness, Hypomagnesemia, Hypokalemia, New onset atrial fibrillation Patient Disposition: Admitted As Inpatient Discharge Instructions Interventions: ED Discharge Assessment Last Done: 07/24/18 16:49 The scribe's documentation has been prepared under my direction and personally reviewed by me in its entirety. I confirm that the note above accurately refl ects all work, treatment, procedures, and medical decision making performed by me.
--- NOTE | 2018-07-24 15:26 | History & Physical Report ---
Date of Service July 24, 2018 Assessment & Plan (1) Atrial fibrillation: - It appears she had short bursts of atrial tach/paroxysmal atrial fibrillation on previous admission and had holter monitor as outpatient - This may be from ETOH use, significant electrolyte abnormalities, vs other - Most recent echo with EF 65-70% with no wall motion abnormalities; type 1 diastolic dysfunction; RV pressure 37 mmHg - She remains largely asymptomatic when rate controlled - some dizziness with RVR - Per outpatient cardiology note the plan was for rate control medication if this would be more frequent or prolonged - she was prescribed Metoprolol on last admission but states she is not taking it at this time - Will continue Diltiazem gtt at this time and wean per protocol - current BP is acceptable and rate is controlled at this time - Will initiate heparin gtt at this time however will need to consider the risk factors for long-term anticoagulation given ETOH use and falls - Consult cardiology - appreciate recommendations Present on Admission?: Yes (2) Electrolyte abnormality: - Presents with Mag 0.7 and K 2.8 - will replete and monitor labs Present on Admission?: Yes (3) Weakness: - Likely multifactorial between chronic ETOH abuse vs poor nutritent intake vs maybe intermittent RVR - PT/OT evaluations; case management assistance Present on Admission?: Yes (4) Alcohol abuse: - Reports she drinks 2 good sized glasses of mixed drinks utilizing Vodka and states this is cut back from her normal; states she hasn't gone very many days without drinking so states she has never withdrawn or had seizures - Seems to have increased her drinking after the loss of her and does report that she knows she drinks too much - AWSS protocol with Gabapentin taper and PRN Ativan; No active signs of withdrawal but would be high risk Present on Admission?: Yes (5) Hypertension: - Hold Amlodipine - likely will utilize rate control medication that can d ouble for BP control Present on Admission?: Yes History of Present Illness Chief Complaint: Fall Primary Care Provider: Guillermo Mckinnon Ms. Bradley is a 72 y/o female with PMHx of ETOH Abuse, Tobacco Use, HTN, Depression, and Atrial Tachycardia/Paroxysmal Atrial Fibrillation who presents to the ED c/o a fall. Pt is not a great historian and currently fixated on wanting someone to buy her reading glasses from the [employer] shop so she can watch TV. Pt reports she was trying to lift a table up a flight of steps and tripped on the carpet and landed on her bottom. She wears a life alert and this was triggered and EMS arrived. She states she does not have any pain and feels at her baseline. She states when EMS arrived they said her heart rhythm was irregular. She states she did not lose consciousness and states she didn't have dizziness prior to the fall. However, states she felt dizzy when she was sitting on the ground. She was found to be in A Fib RVR upon EMS arrival. She denies SOB, CP, palpitations. She states she feels in her normal state of health. She has a H/O falls and syncopal episodes that were thought to be related to her drinking. She states she did start falling as her ETOH use increased. On a previous admission she was found to have atrial tachycardia and paroxysmal atrial fibrillation but these were short durations. Discussion was had with her game farm helper about utilizing rate controlling methods if these become more prolonged/frequent. She states she does fall alot and its because she is unsteady on her feet but does better with a walker. She reports she has tried to cut back on her drinking as she was told this is likely contributing to her problems. She would not go into great details about her drinking. She does state she always had at least a cocktail after dinner when her was alive. She states she began drinking more after his . States she now has two "good sized" glasses of vodka with mixers. She cannot elaborate how much direct ETOH goes into the glass. She states this is a cut back from her previous usage. She states she has never gone without drinking so has never withdrawn. She denies H/O seizures. Allergies Allergy/AdvReac Type Severity Reaction Status Date / Time Penicillins Allergy Unknown CAN'T Verified 07/24/18 14:09 REMEMBER [facility] Allergy Unknown CAN'T Uncoded 07/24/18 14:09 REMEMBER-SEE COMMENT Home Medications Home Medications Medication Instructions Recorded Confirmed Type alprazolam [Xanax] 1 mg PO BID 07/24/18 07/24/18 History amlodipine 2.5 mg PO DAILY 07/24/18 07/24/18 History metoprolol succinate 25 mg PO DAILY 07/24/18 07/24/18 History trazodone 50 mg PO DAILY 07/24/18 07/24/18 History Past Med/Surg History Medical History Hx of falling Depression Insomnia Tobacco abuse Chronic alcohol abuse H/O: hysterectomy Pneumonia (Resolved) Hypertension (Chronic) Social History Preferred Language: Salvadorean Communication Ability: Effective Visual Impairment: No Limitations Hearing Ability: Normal Beliefs That Will Affect Care: None marital status: / Current Living Situation: Alone Feels Safe at Home: Yes Smoking Status: Current every day smoker Hx Alcohol Use: Yes Hx Substance Use: No Review of Systems Constitutional: + weakness and + anorexia; no fever and no chills Eyes: no worsening vision Ear, Nose, Mouth, Throat: no dysphagia Respiratory: no cough and no dyspnea Cardiovascular: + lightheadedness (currently resolved); no chest pain, no palpitations and no edema Gastrointestinal: no abdominal pain, no nausea, no vomiting, no constipation and no diarrhea/loose stools Genitourinary (Female): no dysuria Neurologic: + unsteadiness and + generalized weakness; no tingling and no numbness Psychiatric: + substance abuse Physical Exam Vital Signs (Past 24 Hours): Last Vital Signs Temp 36.9 C 07/24/18 11:36 Pulse 84 07/24/18 14:31 Resp 21 07/24/18 14:31 BP 119/77 07/24/18 14:30 Pulse Ox 97 07/24/18 14:31 Constitutional: well developed and well nourished; no acute distress, not ill appearing and not intoxicated appearing Eyes: + anicteric sclerae ENMT: Ears: no hearing impairment Neck: trachea midline Respiratory: normal respiratory effort, lungs clear to auscultation Cardiovascular: Rate/Rhythm: regular rate; + abnormal rhythm (irregular) Gastrointestinal (Abdomen): Inspection/Auscultation: normal bowel sounds Percussion/Palpation: abdomen soft; abdomen nontender Musculoskeletal: Head/Neck/Chest: normocephalic, head atraumatic and neck supple Skin: no rashes, warm and dry Neurologic: moves all extremities Psychiatric: Orientation: alert and oriented x 3 Apperance: + disheveled Eye Contact: + fair eye contact Code Status & VTE Plan Code Status FULL RESUSCITATION Supervising Physician Co-Signing Physician Notes Pt seen/examined with SHANA Murillo. Orders and plan of admission formulated with SHANA. 72 y/o ETOH Abuse, smoker, HTN, depression, PAF - presents to the ED following a fall. Did not suffer significant head trauma or a fracture. She was noted to be in rapid AF on arrival. Has responded well to Diltiazem. OE Pleasant, elderly F, no distress or immediate signs of withdrawal. S1,2 irr CTAB NT, ND Minimal BL edema P: Admitted for arpid fib - on a Diltiazem drip We will place on an ETOH withdrawal protocol Hold [facility] to allow for diltiazem titration - cont Metoprol Poor candidate for anticoagulation Does not display interest in alcohol or smoking cessation
[2018-07-24] MEDS ORDERED: POTASSIUM CHLORIDE 20 MEQ TABCR PO STA ×2 (15:57→18:52)
[2018-07-24] MEDS ORDERED: ALUMINUM/MAGNESIUM SUSP 30 ML UDC PO PRN (17:19)
[2018-07-24] MEDS ORDERED: MAGNESIUM HYDROXIDE SUSP 30 ML UDC PO PRN (17:19)
[2018-07-24] MEDS ORDERED: GABAPENTIN 600MG ALCOHOL WITHDRAWAL LOAD PO STA (17:19)
[2018-07-24] MEDS ORDERED: LORazepam 1 MG/2 ML VIAL IV PRN (17:19)
[2018-07-24] MEDS ORDERED: MULTI-VITAMIN INFUSION 10 ML, THIAMINE HCL 100 MG, FOLIC ACID 1 MG in SODIUM CHLORIDE 0... IV SCH (17:19)
[2018-07-24] MEDS ORDERED: ACETAMINOPHEN 325 MG TAB PO PRN (17:19)
[2018-07-24] MEDS ORDERED: POLYETHYLENE (MIRALAX) 17 GM PACK PO PRN (17:19)
[2018-07-24] MEDS ORDERED: ONDANSETRON INJ 2 MG/ML 2 ML VIAL IV PRN (17:19)
[2018-07-24] MEDS ORDERED: GABAPENTIN 600 MG TAB PO ONE (18:00)
[2018-07-24 18:03] LABS: Appearance Urine Clear (Clear); Bacteria Urine Automated Negative (Negative); Bilirubin Urine Negative (Negative); Blood Urine Negative (Negative); Color Urine Yellow; Epithelial Cell Urine Auto >30 /lpf (0-5); Glucose Urine UA Trace (Negative); Ketones Urine 1+ (Negative); Leukocyte Esterase Urine 1+ (Negative); Nitrite Urine Negative (Negative); Protein Urine Negative (Negative); Specific Gravity Urine 1.018 (1.000-1.030); Urobilinogen Urine Negative (Negative); pH Urine 5.5 (4.5-7.5)
[2018-07-24] MEDS: THIAMINE HCL 100 MG TAB PO SCH (18:11)
[2018-07-24 18:27] LABS: BUN Creatinine Ratio 19.3 (10-20); Calcium 8.2 mg/dl (8.5-10.1); Creatinine Clr Calc Pharmacy 34.7 ml/min; Est GFR (African American) 46.8; Est GFR (Non-African American) 40.4; Magnesium 1.5 mg/dl (1.8-2.4); Potassium 2.8 mmol/L (3.5-5.1)
[2018-07-24 18:28] LABS: Amphetamines+Metham, Urine Neg (Neg); Barbiturates, Urine Neg (Neg); Benzodiazepine, Urine Pos (Neg); Cocaine, Urine Neg (Neg); MDMA (Ecstacy), Urine Neg (Neg); Methadone, Urine Neg (Neg); Opiate, Urine Neg (Neg); Phencyclidine, Urine Neg (Neg)
[2018-07-24 18:32] LABS: Troponin I 0.036 ng/ml (0-0.045)
[2018-07-24] MEDS: MAGNESIUM OXIDE 400 MG TAB PO SCH (20:05)
[2018-07-24] MEDS ORDERED: ALPRAZolam 0.5 MG TABLET PO SCH (21:00)
[2018-07-25] MEDS: GABAPENTIN 100 MG CAP PO SCH ×2 (00:32→05:59)
[2018-07-25 06:21] LABS: Hematocrit (blood only) 30.4 % (37-47); Hemoglobin 10.4 g/dL (12.0-16.0); Mean Corpuscular Hgb Conc 34.2 g/dL (32-36); Mean Corpuscular Volume 92.1 fL (80-100); Mean Platelet Volume 9.4 fL (7.4-10.4); Platelet Count 131 K/uL (130-400); RDW Coefficient of Variation 12.8 % (11.5-14.5); RDW Standard Deviation 43.3 fL (36.4-46.3); White Blood Count 3.14 K/uL (4.8-10.8)
[2018-07-25 06:56] LABS: BUN Creatinine Ratio 21.8 (10-20); Calcium 7.5 mg/dl (8.5-10.1); Creatinine Clr Calc Pharmacy 40.9 ml/min; Est GFR (Non-African American) 49.2; Potassium 3.4 mmol/L (3.5-5.1)
[2018-07-25] MEDS: MAGNESIUM OXIDE 400 MG TAB PO SCH ×2 (07:30→18:32)
[2018-07-25] MEDS: FOLIC ACID 1 MG TAB PO SCH (07:31)
[2018-07-25] MEDS: METOPROLOL SUCC 25MG EXT REL TAB PO SCH (07:31)
[2018-07-25] MEDS: THIAMINE HCL 100 MG TAB PO SCH (07:31)
--- NOTE | 2018-07-25 12:34 | Cardiology Consultation ---
Date of Consultation July 25, 2018 Assessment & Plan (1) Atrial fibrillation: She appears to be asymptomatic. Her heart rate is reasonably controlled. Continue metoprolol succinate 25 mg daily for rate control. She has elevated chads Vasc score and therefore elevated stroke risk. We discussed this and the indication for anticoagulation therapy. She is not sure if she would want to be on anticoagulation therapy. We discussed both bleeding risk and stroke risk. There is concern with her alcoholism about compliance with medications. She spoke about not returning home, especially initially. She would like to discuss with her son about anticoagulation first when he comes in today. If all is in agreement, it would be reasonable to initiate anticoagulation therapy for stroke risk reduction, especially if she is going to rehab or longterm. She did have a lower hemoglobin today compared to yesterday. Please ensure that there is no bleeding. (2) Hypokalemia: She had significant hypokalemia, which may have helped precipitate atrial fibrillation. Alcoholism may be playing a role with her electrolyte abnormalities. Repletion as per primary hospitalist service. (3) Alcohol abuse: We discussed the importance of abstinence from alcohol. This has been discussed in the past as well. She was informed that alcoholism may be contributing to her atrial fibrillation. (4) Tobacco abuse: Stop smoking. Disposition: Plan of care discussed with Dr. Mcclain of the primary hospitalist service. Please call with any other questions or concerns. As long as she remains rate controlled, she can be discharged home from a cardiology perspective. Thank you for allowing me to participate in the care of your patient. Please call for any other questions or concerns. Sincerely, Savage Marcos M.D. History of Present Illness Reason for Consultation: Atrial fibrillation with RVR Requesting Physician: Pearl Murillo Attending Physician: Ze Mcclain MD History of Present Illness Mrs. Bradley is a 72-year-old female with a history significant for hypertension, alcohol abuse, tobacco abuse, and nonsustained atrial tachycardia. She presented to [facility] on 07/24/2018 after falling and was found to be in atrial fibrillation with rapid ventricular response. She states that she had a mechanical fall. She was trying to move the table and when she turned she fell but was unable to get up. She states that she is having issues walking and feels very weak. She questions if she is capable of going home due to her ambulatory dysfunction. She has a Life Alert and therefore EMS arrived to her home. They found her to have a rapid heart rate, which prompted hospitalization. She denies palpitations, chest pain, shortness of breath, edema, stroke-like symptoms, or bleeding such as melena, hematochezia, or hematuria. She has not had any further episodes of loss of consciousness. She continues to consume alcohol but states that she cut back. She was a bit vague on how much she actually consumes, other than saying that she drinks 2 large glasses of liquor. Her heart rate has been well controlled for the past several hours. She denies any recent nausea, vomiting, diarrhea. She denies fevers or chills. She was found to be hypokalemic upon presentation with a potassium level of 2.8. Review of systems: As above. Review of systems otherwise negative/unremarkable. Social history: Smokes > 1/2 pack per day. Consumes large amounts of alcohol, notably vodka with at least 4 shots per day divided into 2 drinks. In the past she has admitted to consuming up to a "handle" of vodka per week. She is a since 2014. She has 1 son. Her [id number]-loa is a nurse. No grandchi ldren. She was alone in her hospital room. Family history: No known premature CAD. Allergies Allergy/AdvReac Type Severity Reaction Status Date / Time Penicillins Allergy Unknown CAN'T Verified 07/24/18 14:09 REMEMBER MYCIN FAMILY DRUGS Allergy Unknown CAN'T Uncoded 07/24/18 14:09 REMEMBER-SEE COMMENT Home Medications Home Medications Medication Instructions Recorded Confirmed Type alprazolam [Xanax] 1 mg PO BID 07/24/18 07/24/18 History amlodipine 2.5 mg PO DAILY 07/24/18 07/24/18 History metoprolol succinate 25 mg PO DAILY 07/24/18 07/24/18 History trazodone 50 mg PO DAILY 07/24/18 07/24/18 History Patient History Medical History Hx of falling Depression Insomnia Tobacco abuse Chronic alcohol abuse H/O: hysterectomy Pneumonia (Resolved) Hypertension (Chronic) Social History Preferred Language: Russian Communication Ability: Effective Risk Analyst Required: No Beliefs That Will Affect Care: None marital status: / Current Living Situation: Alone Other Information That Helps Us Care for You: No Feels Safe at Home: Yes Safety Concerns: Feels Safe At This Time Smoking Status: Current every day smoker Hx Alcohol Use: Yes Hx Substance Use: No Physical Exam Vital Signs (Past 24 Hours): Last Vital Signs Temp 36.6 C 07/25/18 11:36 Pulse 80 07/25/18 11:36 Resp 16 07/25/18 11:36 BP 134/84 07/25/18 11:36 Pulse Ox 96 07/25/18 11:36 Physical Exam: Gen.: No acute distress. Alert and oriented x 3. Disheveled appearance. HEENT: Anicteric sclera. Neck: No JVD. No bruits. Normal carotid upstrokes bilaterally. Cardiac: PMI was nondisplaced. No ventricular heave. Irregularly irregular. Normal S1-S2. No murmurs, rubs, or gallops. Pulmonary: Clear to auscultation bilaterally without wheezes, rales, or rhonchi. Abdomen: Soft, nontender, nondistended, with normoactive bowel sounds. No bruits noted. Extremities: 2+ radial pulses bilaterally. 2+ posterior tibialis pulses bilaterally. No edema or cyanosis. Psychiatric: Affect appears appropriate. Results & Data Laboratory Results Laboratory Results - last 24 hr 07/24/18 07/24/18 07/24/18 12:00 12:00 12:50 WBC RBC Hgb Hct MCV MCH MCHC RDW Std Deviation RDW Coeff of Mario Plt Count MPV PT 10.8 INR 1.1 APTT 24.3 PTT Ratio 0.9 Sodium 128 L Potassium 2.8 L Chloride 84 L Carbon Dioxide 29 Anion Gap 15.0 H BUN 27 H Creatinine 1.52 H Est Cr Clr Drug Dosing Not Reportable Est GFR ( Amer) 39.8 Est GFR (Non-Af Amer) 34.4 BUN/Creatinine Ratio 18.0 Glucose 103 H Calcium 8.5 Magnesium 0.7 L* Total Bilirubin 0.5 AST 93 H ALT 40 Alkaline Phosphatase 79 Troponin I 0.028 Total Protein 6.9 Albumin 3.4 Globulin 3.5 Albumin/Globulin Ratio 1.0 TSH 2.260 Urine Color Urine Appearance Urine pH Ur Specific [place] Urine Protein Urine Glucose (UA) Urine Ketones Urine Blood Urine Nitrite Urine Bilirubin Urine Urobilinogen Ur Leukocyte Esterase Urine WBC (Auto) Urine RBC (Auto) U Hyaline Cast (Auto) U Epithel Cells (Auto) Urine Bacteria (Auto) Ur Renal Epithelial Cell Urine Opiates Screen Ur Methadone, Qual Urine Barbiturates Ur Phencyclidine (PCP) U Amphetamin/Meth Scrn MDMA (Ecstasy) Screen U Benzodiazepines Scrn Ur Cocaine Metabolite U Marijuana (THC) Screen Ethyl Alcohol mg/dL < 3.0 07/24/18 07/24/18 07/24/18 17:40 17:40 17:55 WBC RBC Hgb Hct MCV MCH MCHC RDW Std Deviation RDW Coeff of Mario Plt Count MPV PT INR APTT PTT Ratio Sodium 127 L Potassium 2.8 L Chloride 84 L Carbon Dioxide 28 Anion Gap 15.0 H BUN 26 H Creatinine 1.33 H Est Cr Clr Drug Dosing 34.7 Est GFR ( Amer) 46.8 Est GFR (Non-Af Amer) 40.4 BUN/Creatinine Ratio 19.3 Glucose 108 H Calcium 8.2 L Magnesium 1.5 L Total Bilirubin AST ALT Alkaline Phosphatase Troponin I 0.036 Total Protein Albumin Globulin Albumin/Globulin Ratio TSH Urine Color Yellow Urine Appearance Clear Urine pH 5.5 Ur Specific [place] 1.018 Urine Protein Negative Urine Glucose (UA) Trace H Urine Ketones 1+ H Urine Blood Negative Urine Nitrite Negative Urine Bilirubin Negative Urine Urobilinogen Negative Ur Leukocyte Esterase 1+ H Urine WBC (Auto) 5-10 H Urine RBC (Auto) 5-10 H U Hyaline Cast (Auto) 5-10 H U Epithel Cells (Auto) >30 H Urine Bacteria (Auto) Negative Ur Renal Epithelial Cell Not Reportable Urine Opiates Screen Neg Ur Methadone, Qual Neg Urine Barbiturates Neg Ur Phencyclidine (PCP) Neg U Amphetamin/Meth Scrn Neg MDMA (Ecstasy) Screen Neg U Benzodiazepines Scrn Pos H Ur Cocaine Metabolite Neg U Marijuana (THC) Screen Neg Ethyl Alcohol mg/dL 07/25/18 07/25/18 07/25/18 00:28 05:55 05:55 WBC 3.14 L RBC 3.30 L Hgb 10.4 L Hct 30.4 L MCV 92.1 MCH 31.5 MCHC 34.2 RDW Std Deviation 43.3 RDW Coeff of Mario 12.8 Plt Count 131 MPV 9.4 PT INR APTT PTT Ratio Sodium 130 L Potassium 3.4 L D Chloride 92 L Carbon Dioxide 29 Anion Gap 9.0 BUN 25 H Creatinine 1.13 Est Cr Clr Drug Dosing 40.9 Est GFR ( Amer) 57.0 Est GFR (Non-Af Amer) 49.2 BUN/Creatinine Ratio 21.8 H Glucose 82 Calcium 7.5 L Magnesium Total Bilirubin AST ALT Alkaline Phosphatase Troponin I 0.029 Total Protein Albumin Globulin Albumin/Globulin Ratio TSH Urine Color Urine Appearance Urine pH Ur Specific [place] Urine Protein Urine Glucose (UA) Urine Ketones Urine Blood Urine Nitrite Urine Bilirubin Urine Urobilinogen Ur Leukocyte Esterase Urine WBC (Auto) Urine RBC (Auto) U Hyaline Cast (Auto) U Epithel Cells (Auto) Urine Bacteria (Auto) Ur Renal Epithelial Cell Urine Opiates Screen Ur Methadone, Qual Urine Barbiturates Ur Phencyclidine (PCP) U Amphetamin/Meth Scrn MDMA (Ecstasy) Screen U Benzodiazepines Scrn Ur Cocaine Metabolite U Marijuana (THC) Screen Ethyl Alcohol mg/dL Diagnostic Findings ECG personally reviewed: ECG 07/24/2018: AFib with rapid ventricular response [address]/T-wave abnormality. Compared to prior ECG on 04/06/2018, atrial fibrillation has replaced sinus rhythm. Telemetry personally reviewed: Rate controlled atrial fibrillation. Chest x-ray 07/24/2018: No acute findings as per Radiology. Head CT 07/24/2018: Chronic small-vessel ischemic change per Radiology. No acute intracranial abnormality. Holter 06/01/2018: Sinus rhythm average heart rate 85, ranging 63-127. Occasional PACs and PVCs. One ventricular triplet. Nonsustained episodes of atrial tachycardia up to 14 beats. Echo 04/06/2018: Normal LV size, wall motion, systolic function. EF 65-70%. Mild to moderate LVH. Mild MR. RVSP 37. Medications Administered Current Inpatient Medications Acetaminophen (Tylenol) 650 mg PO Q4H PRN PRN Reason: Pain or Fever Stop: 08/23/18 17:18 Al Hydrox/Mg Hydrox/Simethicone (Maalox) 15 ml PO Q4H PRN PRN Reason: Dyspepsia Stop: 08/23/18 17:18 Alprazolam (Xanax) 1 mg PO HS MAURISIO Stop: 08/23/18 20:59 Last Admin: 07/24/18 20:07 Dose: 1 mg Documented by: Folic Acid (Folvite) 1 mg PO QAM [facility] Stop: 08/24/18 08:59 Last Admin: 07/25/18 07:31 Dose: 1 mg Documented by: Gabapentin (Neurontin) 200 mg PO Q24H [facility] Stop: 07/27/18 15:18 Gabapentin (Neurontin) 400 mg PO Q24H [facility] Stop: 07/26/18 15:18 Gabapentin (Neurontin) 600 mg PO Q24H [facility] Stop: 07/25/18 15:18 Lorazepam (Ativan) 1 mg in 2 mls @ 2 mls/min IV ONE PRN; Protocol PRN Reason: EtoH Withdrawal AWSS 6-10 Stop: 08/23/18 17:18 Magnesium Hydroxide (Milk Of Magnesia) 30 ml PO Q12H PRN PRN Reason: Constipation Stop: 08/23/18 17:18 Magnesium Oxide (Mag-Ox) 400 mg PO BID [facility] Stop: 08/23/18 20:59 Last Admin: 07/25/18 07:30 Dose: 400 mg Documented by: Metoprolol Succinate (Toprol Xl) 25 mg PO DAILY [facility] Stop: 08/24/18 05:59 Last Admin: 07/25/18 07:31 Dose: 25 mg Documented by: Ondansetron HCl (Zofran) 4 mg IV Q6H PRN PRN Reason: Nausea Stop: 08/23/18 17:18 Polyethylene Glycol (Miralax Powder Packet) 17 gm PO DAILY PRN PRN Reason: Constipation Stop: 08/23/18 17:18 Thiamine HCl (Vitamin B-1) 100 mg PO QAM [facility] Stop: 08/23/18 17:29 Last Admin: 07/25/18 07:31 Dose: 100 mg Documented by:
[2018-07-25] MEDS ORDERED: POTASSIUM CHLORIDE 20 MEQ TABCR PO STA (14:15)
[2018-07-25] MEDS ORDERED: GABAPENTIN 600 MG TAB PO SCH (15:17)
--- NOTE | 2018-07-25 18:14 | Hospitalist Progress Note ---
Date of Service July 25, 2018 Assessment & Plan (1) Atrial fibrillation: - It appears she had short bursts of atrial tach/paroxysmal atrial fibrillation on previous admission and had holter monitor as outpatient - This may be from ETOH use, significant electrolyte abnormalities, vs other - Most recent echo with EF 65-70% with no wall motion abnormalities; type 1 diastolic dysfunction; RV pressure 37 mmHg - She remains largely asymptomatic when rate controlled - did have some low HRs on Dilt gtt and converted to Toprol XL 25 mg daily and will monitor for need of titration -- She was on Metoprolol as outpatient but ultimately stopped this as she is non-compliant per family and was reporting dizziness which could be true but family feels her dizziness is more related to intoxication - Will start Eliquis 5 mg BID and monitor - she did have a drop in Hgb likely dilutaional given banana bag/NSS bolus and will monitor - no signs of bleeding at this time -- Fall risk but planning on inpatient rehab on discharge; also high stroke risk - Cardiology followed - appreciate input Present on Admission?: Yes (2) Electrolyte abnormality: - Significant Hypokalemia, Hypomagnesemia, and Hyponatremia - Hyponatremia likely in setting of ETOH abuse and will monitor - Magnesium and K improving and will monitor - replete as necessary Present on Admission?: Yes (3) Weakness: - Likely multifactorial between chronic ETOH abuse vs poor nutrient intake vs maybe intermittent RVR - PT/OT evaluations; case management assistance Present on Admission?: Yes (4) Alcohol abuse: - Reports she drinks 2 good sized glasses of mixed drinks utilizing Vodka and states this is cut back from her normal; states she hasn't gone very many days without drinking so states she has never withdrawn or had seizures -- Family states she drinks significantly more and typically drinks until she is very intoxicated or blacks out - Per son, she has gone to ETOH rehab when he was a teenager and this is a lifelong problem; patient however expresses today that she used to have evening cocktails with her who in 2014 and she continues to drink because this was something they shared together - Definitely mixed diagnosis of substance abuse but also untreated depression/anxiety - Family states she enjoys her Xanax and now is rationing this because her PCP is no longer prescribing it - was ordered for HS use however in the setting of withdrawal will hold it due to Ativan PRN dosing - Ultimately any behavioral health medication is not safe with concurrent ETOH use but she would highly benefit from inpatient ETOH rehab, therapy/counseling, and SSRI with avoidance of benzodiazepines - She is beginning to exhibit signs of ETOH withdrawal as the day progressed - family feels she has some dementia at baseline and tends to have some flight of ideas but now is exhibiting some paranoid thinking/confabulation/hallucinations - AWSS protocol with Gabapentin taper and Ativan; Very high risk for withdrawal as her ETOH intake appears to be quiet significant and about 48 hours out from last drink Present on Admission?: Yes (5) Hypertension: - Hold Amlodipine - likely will utilize rate control medication that can double for BP control Present on Admission?: Yes Subjective Pt is experiencing some flight of ideas this AM during my visit. Fixated on how a doctor told her she can slowly taper her drinking down and to not stop cold turkey. She states she sometimes drinks in the afternoon but to not tell anyone especially her neighbors. As the day progressed she started to exhibit some paranoid thinking an confabulating stories that are not true. She states she would like to go to [facility] but when therapy came to see her she refused. When I asked her about it she said the only mackenzie that came to talk to her was from her insurance company and she didn't think it was his business where she was going to rehab. Talked with the son and [id number] who states she can fixate on topics and jump from topic to topic at baseline and suspect she has dementia. She was calm for the majority of the day but as the day progressed is beginning to show signs of withdrawal. Did discuss anticoagulation with patient and family. The plan is to implement [facility] [employer] and are agreeable to $20/month co-pay. Per family, patient is not safe to return home and plans for physical rehab and then alcohol rehab. When I asked the patient about alcohol rehab she stated she would not because she is cutting back on drinking herself. Will monitor her mentation and decision-making abilities. She was alert and oriented earlier in the day but does not exhibit great higher level of thinking. Son is POA and pending her response to withdrawal she may not be capable of making higher level decisions but will re-evaluate as she progresses through the detoxing process. Constitutional: + weakness and + anorexia; no fever and no chills Respiratory: no cough and no dyspnea Cardiovascular: no chest pain, no palpitations, no lightheadedness and no edema Gastrointestinal: no abdominal pain, no nausea, no vomiting, no constipation and no diarrhea/loose stools Genitourinary (Female): no dysuria Neurologic: + gait abnormality, + unsteadiness and + generalized weakness; no tingling, no numbness and no tremor(s) Psychiatric: + anxiety, + confusion, + paranoia, + visual hallucinations and + substance abuse Physical Exam Vital Signs (Past 24 Hours): Last Vital Signs Temp 36.4 C L 07/25/18 15:25 Pulse 104 H 07/25/18 15:25 Resp 20 07/25/18 15:25 BP 132/87 07/25/18 15:25 Pulse Ox 95 07/25/18 15:25 Constitutional: well developed and well nourished; no acute distress, not ill appearing and not intoxicated appearing Eyes: + anicteric sclerae ENMT: Ears: no hearing impairment Neck: trachea midline Respiratory: normal respiratory effort, lungs clear to auscultation Cardiovascular: Rate/Rhythm: regular rate; + abnormal rhythm (irregular) Gastrointestinal (Abdomen): Inspection/Auscultation: normal bowel sounds Percussion/Palpation: abdomen soft; abdomen nontender Musculoskeletal: Head/Neck/Chest: normocephalic, head atraumatic and neck supple Skin: no rashes, warm and dry Neurologic: moves all extremities Psychiatric: Orientation: alert and oriented x 3 Apperance: + disheveled Eye Contact: + fair eye contact
[2018-07-25] MEDS ORDERED: ATIVAN IV ALCOHOL WITHDRAWL IV SCH (18:15)
[2018-07-25] MEDS: LORazepam 2 MG/4 ML VIAL IV PRN ×2 (18:32→19:39)
[2018-07-25] MEDS: APIXABAN 5 MG TABLET PO SCH (19:38)
[2018-07-25] MEDS: LORazepam 3 MG/6 ML VIAL IV PRN ×2 (21:37→22:34)
[2018-07-25] MEDS: LORazepam 1 MG/2 ML VIAL IV PRN (23:17)
[2018-07-26 07:32] LABS: Hemoglobin 11.1 g/dL (12.0-16.0); Mean Corpuscular Hgb Conc 33.6 g/dL (32-36); Mean Corpuscular Volume 94.3 fL (80-100); Mean Platelet Volume 9.5 fL (7.4-10.4); Platelet Count 146 K/uL (130-400); RDW Standard Deviation 44.4 fL (36.4-46.3); White Blood Count 3.85 K/uL (4.8-10.8)
[2018-07-26] MEDS: MAGNESIUM OXIDE 400 MG TAB PO SCH ×2 (07:40→20:15)
[2018-07-26] MEDS: APIXABAN 5 MG TABLET PO SCH ×2 (07:40→20:15)
[2018-07-26] MEDS: METOPROLOL SUCC 25MG EXT REL TAB PO SCH (07:40)
[2018-07-26] MEDS: THIAMINE HCL 100 MG TAB PO SCH (07:41)
[2018-07-26] MEDS: FOLIC ACID 1 MG TAB PO SCH (07:41)
[2018-07-26] MEDS: LORazepam 2 MG/4 ML VIAL IV PRN ×3 (07:48→15:31)
[2018-07-26 08:11] LABS: Calcium 8.2 mg/dl (8.5-10.1); Creatinine Clr Calc Pharmacy 45.2 ml/min; Est GFR (African American) 63.8; Magnesium 1.2 mg/dl (1.8-2.4); Potassium 3.8 mmol/L (3.5-5.1)
[2018-07-26] MEDS ORDERED: METOPROLOL SUCC 25MG EXT REL TAB PO ONE (09:30)
--- NOTE | 2018-07-26 09:33 | Cardiology Progress Note ---
Date of Service July 26, 2018 Assessment & Plan (1) Atrial fibrillation: She appears to be asymptomatic. Her rate is fast at times, up to the 120s this morning. Will therefore increase her metoprolol succinate to 50 mg daily for better rate control. She has an elevated CHADSVASc score and therefore elevated stroke risk. Anticoagulation is therefore indicated for thromboembolic prophylaxis, as long as there are no contraindications. There is concern with her alcoholism about compliance with medications. As the patient is rather confused this morning, and her son is not present, will wait until she is in a better state of mind and her son can weigh in on whether or not they wish to initiate an anticoagulant. (2) Hypokalemia: She had significant hypokalemia, which may have helped precipitate atrial fibrillation. Alcoholism may be playing a role with her electrolyte abnormalities. Repletion as per primary hospitalist service. (3) Alcohol abuse: The importance of abstaining from alcohol has been discussed with the patient. She was informed that alcoholism may be contributing to her atrial fibrillation. (4) Tobacco abuse: Recommend she stop smoking. Disposition: Please call with any other questions or concerns. As long as her rate is adequately controlled, she can be discharged home from a cardiology perspective. Subjective Patient is confused this morning, but she is largely asymptomatic. She denies chest pain or shortness of breath. She further denies palpitations or lightheadedness. She denies abnormal bleeding such as melena, hematochezia, or hematuria. Physical Exam Vital Signs (Past 24 Hours): Last Vital Signs Temp 36.4 C L 07/26/18 07:00 Pulse 90 07/26/18 07:00 Resp 17 07/26/18 07:00 BP 126/85 07/26/18 07:00 Pulse Ox 91 07/26/18 07:00 Constitutional: Alert, oriented, in no acute distress HEENT: Head is atraumatic and normocephalic. EOMs intact. Sclera anicteric. Face is symmetric. No perioral cyanosis. Mucous membranes moist. Neck: Supple, no JVD Pulmonary: Normal respiratory effort, clear to auscultation bilaterally Cardiac: Irregularly irregular, normal S1 and S2, no gallops, no rubs, no ob vious murmurs Extremities: No clubbing, cyanosis, or edema. Pulses 2+ and symmetric Abdomen: Normal bowel sounds, soft, non-tender, no abdominal mass palpated Skin: Normal skin color, turgor, and pigmentation, no rash, no skin lesions Neurological: Oriented to person, place, and time Results & Data Laboratory Results Laboratory Results WBC 3.85 K/uL (4.8-10.8) L 07/26/18 06:52 RBC 3.50 M/uL (4.2-5.4) L 07/26/18 06:52 Hgb 11.1 g/dL (12.0-16.0) L 07/26/18 06:52 Hct 33.0 % (37-47) L 07/26/18 06:52 MCV 94.3 fL (80-100) 07/26/18 06:52 MCH 31.7 pg (25-34) 07/26/18 06:52 MCHC 33.6 g/dL (32-36) 07/26/18 06:52 RDW Std Deviation 44.4 fL (36.4-46.3) 07/26/18 06:52 RDW Coeff of Mario 13.0 % (11.5-14.5) 07/26/18 06:52 Plt Count 146 K/uL (130-400) 07/26/18 06:52 MPV 9.5 fL (7.4-10.4) 07/26/18 06:52 Immature Gran % (Auto) 0.6 % 07/24/18 12:00 Neut % (Auto) 83.5 % 07/24/18 12:00 Lymph % (Auto) 6.8 % 07/24/18 12:00 Smyth % (Auto) 7.4 % 07/24/18 12:00 Eos % (Auto) 1.4 % 07/24/18 12:00 Baso % (Auto) 0.3 % 07/24/18 12:00 Immature Gran # (Auto) 0.02 K/uL (0.00-0.02) 07/24/18 12:00 Neut # (Auto) 2.95 K/uL (1.4-6.5) 07/24/18 12:00 Lymph # (Auto) 0.24 K/uL (1.2-3.4) L 07/24/18 12:00 Smyth # (Auto) 0.26 K/uL (0.11-0.59) 07/24/18 12:00 Eos # (Auto) 0.05 K/uL (0-0.5) 07/24/18 12:00 Baso # (Auto) 0.01 K/uL (0-0.2) 07/24/18 12:00 PT 10.8 Seconds (9.0-12.0) 07/24/18 12:00 INR 1.1 (0.9-1.1) 07/24/18 12:00 APTT 24.3 Seconds (21.0-31.0) 07/24/18 12:00 PTT Ratio 0.9 07/24/18 12:00 Sodium 134 mmol/L (136-145) L 07/26/18 06:52 Potassium 3.8 mmol/L (3.5-5.1) 07/26/18 06:52 Chloride 96 mmol/L (98-107) L 07/26/18 06:52 Carbon Dioxide 32 mmol/L (21-32) 07/26/18 06:52 Anion Gap 6.0 (3-11) 07/26/18 06:52 BUN 23 mg/dl (7-18) H 07/26/18 06:52 Creatinine 1.03 mg/dl (0.6-1.2) 07/26/18 06:52 Est Cr Clr Drug Dosing 45.2 ml/min 07/26/18 06:52 Est GFR ( Amer) 63.8 07/26/18 06:52 Est GFR (Non-Af Amer) 55.0 07/26/18 06:52 BUN/Creatinine Ratio 22.0 (10-20) H 07/26/18 06:52 Glucose 85 mg/dl (70-99) 07/26/18 06:52 POC Glucose 112 (70-99) H 07/24/18 12:17 Calcium 8.2 mg/dl (8.5-10.1) L 07/26/18 06:52 Magnesium 1.2 mg/dl (1.8-2.4) L 07/26/18 06:52 Total Bilirubin 0.5 mg/dl (0.2-1) 07/24/18 12:00 AST 93 U/L (15-37) H 07/24/18 12:00 ALT 40 U/L (12-78) 07/24/18 12:00 Alkaline Phosphatase 79 U/L (45-117) 07/24/18 12:00 Troponin I 0.029 ng/ml (0-0.045) 07/25/18 00:28 Total Protein 6.9 gm/dl (6.4-8.2) 07/24/18 12:00 Albumin 3.4 gm/dl (3.4-5.0) 07/24/18 12:00 Globulin 3.5 gm/dl (2.5-4.0) 07/24/18 12:00 Albumin/Globulin Ratio 1.0 (0.9-2) 07/24/18 12:00 TSH 2.260 uIu/ml (0.300-4.500) 07/24/18 12:00 Urine Color Yellow 07/24/18 17:40 Urine Appearance Clear (Clear) 07/24/18 17:40 Urine pH 5.5 (4.5-7.5) 07/24/18 17:40 Ur Specific [place] 1.018 (1.000-1.030) 07/24/18 17:40 Urine Protein Negative (Negative) 07/24/18 17:40 Urine Glucose (UA) Trace (Negative) H 07/24/18 17:40 Urine Ketones 1+ (Negative) H 07/24/18 17:40 Urine Blood Negative (Negative) 07/24/18 17:40 Urine Nitrite Negative (Negative) 07/24/18 17:40 Urine Bilirubin Negative (Negative) 07/24/18 17:40 Urine Urobilinogen Negative (Negative) 07/24/18 17:40 Ur Leukocyte Esterase 1+ (Negative) H 07/24/18 17:40 Urine WBC (Auto) 5-10 /hpf (0-5) H 07/24/18 17:40 Urine RBC (Auto) 5-10 /hpf (0-4) H 07/24/18 17:40 U Hyaline Cast (Auto) 5-10 /lpf (0-5) H 07/24/18 17:40 U Epithel Cells (Auto) >30 /lpf (0-5) H 07/24/18 17:40 Urine Bacteria (Auto) Negative (Negative) 07/24/18 17:40 Ur Renal Epithelial Cell Not Reportable 07/24/18 17:40 Urine Opiates Screen Neg (Neg) 07/24/18 17:40 Ur Methadone, Qual Neg (Neg) 07/24/18 17:40 Urine Barbiturates Neg (Neg) 07/24/18 17:40 Ur Phencyclidine (PCP) Neg (Neg) 07/24/18 17:40 U Amphetamin/Meth Scrn Neg (Neg) 07/24/18 17:40 MDMA (Ecstasy) Screen Neg (Neg) 07/24/18 17:40 U Benzodiazepines Scrn Pos (Neg) H 07/24/18 17:40 Ur Cocaine Metabolite Neg (Neg) 07/24/18 17:40 U Marijuana (THC) Screen Neg (Neg) 07/24/18 17:40 Ethyl Alcohol mg/dL < 3.0 mg/dl (0-3) 07/24/18 12:50 Diagnostic Findings Telemetry: Atrial fibrillation with rates up to the 120s this morning.
[2018-07-26] MEDS: MAGNESIUM SULFATE / D5W 1 GM/100 ML BAG IV SCH ×2 (13:04→13:59)
[2018-07-26] MEDS ORDERED: GABAPENTIN 400 MG CAP PO SCH (15:17)
--- NOTE | 2018-07-26 16:45 | Hospitalist Progress Note ---
Date of Service July 26, 2018 Assessment & Plan (1) Atrial fibrillation: - This may be from ETOH use, significant electrolyte abnormalities, vs other - Most recent echo with EF 65-70% with no wall motion abnormalities; type 1 diastolic dysfunction; RV pressure 37 mmHg - Remains in A Fib with intermittent RVR likely caused from agitation/alcohol withdraw - Toprol XL increased to 50 mg daily and will continue to monitor - After discussion with patient (when she was more coherent) and family they do elect for anticoagulation and agree to the co-pay - Will continue Eliquis 5 mg BID and monitor for signs of bleeding - may not be good option if she would return home but currently this is not a viable/safe option and planning on rehab - Cardiology following - appreciate assistance Present on Admission?: Yes (2) Electrolyte abnormality: - Significant Hypokalemia, Hypomagnesemia, and Hyponatremia - all likely in the setting of ETOH abuse and poor nutrition - Monitor daily and replete as necessary (3) Weakness: - Likely multifactorial between chronic ETOH abuse vs poor nutrient intake vs maybe intermittent RVR - She may ultimately need an MRI as she is asymptomatic from her A Fib and maybe remote CVA? No focal deficits appreciated from the exam you can get but if she is having some ataxic issues with walking maybe need MRI? However in her current agitation/withdrawal she would not be able to tolerate MRI at this time - PT/OT evaluations; case management assistance (4) Alcohol abuse: - Reports she drinks 2 good sized glasses of mixed drinks utilizing Vodka and states this is cut back from her normal; states she hasn't gone very many days without drinking so states she has never withdrawn or had seizures in the past -- Family states she drinks significantly more and typically drinks until she is very intoxicated or blacks out - Per son, she has gone to ETOH rehab when he was a teenager and this is a lifelong problem; patient however expresses today that she used to have evening cocktails with her who in 2014 and she continues to drink because this was something they shared together - Definitely mixed diagnosis of substance abuse but also untreated depression/anxiety - Family states she enjoys her Xanax and now is rationing this because her PCP is no longer prescribing it - was ordered for HS use however in the setting of withdrawal will hold it due to Ativan PRN dosing - Ultimately any behavioral health medication is not safe with concurrent ETOH use but she would highly benefit from inpatient ETOH rehab, therapy/counseling, and SSRI with avoidance of benzodiazepines - She is currently exhibiting signs of withdraw - family feels she has some dementia at baseline and tends to have some flight of ideas but now is exhibiting some paranoid thinking/confabulation/hallucinations/agitation/physical symptoms of withdrawal - AWSS protocol with Gabapentin taper and Ativan; Very high risk for withdrawal as her ETOH intake appears to be quiet significant - critical days will be up to about 5 days after last drink but may have a prolonged withdraw (5) Hypertension: - Hold Amlodipine - likely will utilize rate control medication that can double for BP control (6) DVT prophylaxis: - Eliquis Disposition: Await detox which may be prolonged - appreciate PT/OT evaluations however may need to wait until withdraw improves - planning on physical rehab on D/C and possible alcohol rehab; Tried to call family today however kept ringing. Did update yesterday Subjective Patient is extremely confused today. Not able to redirect thinking at all. Her answers to questions are normally not relevant to the question asked. Upon entering her room she asked to help her as she is being held captive and was on a spaceship. She wanted to be brought back to [place]. She is easily agitated and pulling out IVs/heart monitor/removing her clothes/trying to get out of bed/tugging at [place]. Sometimes is talking to herself and appears to be experiencing possibly visual and auditory hallucinations. She is not sleeping and barely eating. She is asking for a drink of vodka this afternoon. She was given a drink of water and drank this well but thought this was vodka. When not helped she is throwing her food/drinks. Repleting her electrolytes as needed. She doesn't verbalize any complaints. Her Metoprolol was increased due to tachycardia. Review of Systems Unobtainable due to mental health condition (unable to redirect due to delirium) Physical Exam Vital Signs (Past 24 Hours): Last Vital Signs Temp 37.0 C 07/26/18 14:38 Pulse 117 H 07/26/18 14:38 Resp 20 07/26/18 14:38 BP 148/89 H 07/26/18 14:38 Pulse Ox 92 07/26/18 14:38 Constitutional: + acute distress (agitation) and + disheveled; not ill appearing, not intoxicated appearing and not diaphoretic Eyes: + anicteric sclerae ENMT: Ears: no hearing impairment Neck: trachea midline Respiratory: normal respiratory effort, lungs clear to auscultation Cardiovascular: Rate/Rhythm: + tachycardic; + abnormal rhythm (irregular) Gastrointestinal (Abdomen): Inspection/Auscultation: normal bowel sounds Percussion/Palpation: abdomen soft; abdomen nontender Musculoskeletal: Head/Neck/Chest: normocephalic, head atraumatic and neck supple Skin: no rashes, warm and dry Neurologic: moves all extremities Motor/Sensory: + tremor Psychiatric: Orientation: alert; + not oriented x 3 Apperance: + disheveled Eye Contact: + poor eye contact Motor Behavior: + psychomotor agitation Affect: + anxious affect Mood: + anxious mood and + irritable mood Thought Process: + tangential thought process, + flight of ideas and + confabulations Thought Content: + paranoid, + cognitive distortions and + delusions Hallucinations: + auditory hallucinations and + visual hallucinations Insight: + poor insight Judgement: + poor judgement
[2018-07-26] MEDS: METOPROLOL TARTRATE 1 MG/ML VIAL IV PRN ×2 (19:02→23:03)
[2018-07-26] MEDS: LORazepam 3 MG/6 ML VIAL IV PRN ×3 (20:15→22:07)
[2018-07-26] MEDS ORDERED: POTASSIUM CHLORIDE 20 MEQ TABCR PO STA (21:11)
--- NOTE | 2018-07-26 21:32 | XRay Report ---
XR chest 1V portable HISTORY: coarse lungs COMPARISON: Chest 07/24/2018. FINDINGS: No pneumothorax. The heart is normal in size. Mild interstitial and vascular thickening whi ch has progressed. Trace bilateral pleural effusions. IMPRESSION: Progression of the mild interstitial and vascular thickening with trace bilateral pleural effusions. This suggests developing mild interstitial pulmonary edema. Electronically signed by: Nelson Price M.D. 07/26/2018 9:30 PM
[2018-07-26] MEDS ORDERED: POTASSIUM CHLORIDE 20 MEQ TABCR PO SCH (22:30)
[2018-07-26] MEDS ORDERED: FUROSEMIDE 20 MG TAB PO SCH (22:30)
[2018-07-26] MEDS ORDERED: Nursing to Pharmacy Communication ONE (22:46)
[2018-07-27] MEDS ORDERED: LEVALBUTEROL HCL 0.63 MG/3 ML NEB NEB ONE (00:16)
[2018-07-27] MEDS ORDERED: FUROSEMIDE 10 MG in SYRINGE 0 ML IV ONE (01:00)
[2018-07-27] MEDS: LORazepam 2 MG/4 ML VIAL IV PRN ×2 (04:51→12:21)
[2018-07-27] MEDS ORDERED: POTASSIUM CHLORIDE 20 MEQ TABCR PO ONE (06:00)
[2018-07-27 06:52] LABS: Hematocrit (blood only) 34.6 % (37-47); Hemoglobin 11.7 g/dL (12.0-16.0); Mean Corpuscular Hgb Conc 33.8 g/dL (32-36); Mean Corpuscular Volume 94.3 fL (80-100); Mean Platelet Volume 9.8 fL (7.4-10.4); Platelet Count 184 K/uL (130-400); RDW Coefficient of Variation 12.9 % (11.5-14.5); RDW Standard Deviation 44.3 fL (36.4-46.3); Red Blood Count 3.67 M/uL (4.2-5.4); White Blood Count 9.18 K/uL (4.8-10.8)
[2018-07-27] MEDS: LORazepam 3 MG/6 ML VIAL IV PRN ×2 (06:53→15:38)
[2018-07-27 07:38] LABS: BUN Creatinine Ratio 20.4 (10-20); Calcium 8.6 mg/dl (8.5-10.1); Creatinine Clr Calc Pharmacy 34.7 ml/min; Est GFR (African American) 48.1; Est GFR (Non-African American) 41.5; Magnesium 1.7 mg/dl (1.8-2.4); Potassium 4.5 mmol/L (3.5-5.1)
[2018-07-27] MEDS ORDERED: METOPROLOL SUCC 50MG EXT REL TAB PO SCH (09:00)
[2018-07-27] MEDS: MAGNESIUM OXIDE 400 MG TAB PO SCH ×2 (10:30→20:09)
[2018-07-27] MEDS: THIAMINE HCL 100 MG TAB PO SCH (10:30)
[2018-07-27] MEDS: APIXABAN 5 MG TABLET PO SCH ×2 (10:30→20:08)
[2018-07-27] MEDS: FOLIC ACID 1 MG TAB PO SCH (10:31)
[2018-07-27] MEDS: chlordiazePOXIDE HCl 25 MG CAP PO SCH ×2 (10:32→16:38)
[2018-07-27] MEDS: METOPROLOL TARTRATE 1 MG/ML VIAL IV PRN (12:16)
[2018-07-27 13:05] LABS: 7-Aminoclonaz, Confirm NEGATIVE NG/ML (CUTOFF=25); Hydro-Alp Ur, GC/MS 892 NG/ML (CUTOFF=25); Hydroxyethylflurazepam, Conf NEGATIVE NG/ML (CUTOFF=50); Hydroxytriazolam NEGATIVE NG/ML (CUTOFF=50); Lorazepam, Ur GC/MS NEGATIVE NG/ML (CUTOFF=50); Nordiazepam, Confirm NEGATIVE NG/ML (CUTOFF=50); Oxazepam Ur, GC/MS NEGATIVE NG/ML (CUTOFF=50); Temazepam, Confirm NEGATIVE NG/ML (CUTOFF=50)
[2018-07-27] MEDS ORDERED: METOPROLOL SUCC 25MG EXT REL TAB PO ONE (15:15)
[2018-07-27] MEDS ORDERED: GABAPENTIN 100 MG CAP PO SCH (15:17)
--- NOTE | 2018-07-27 17:28 | Hospitalist Progress Note ---
Date of Service July 27, 2018 Assessment & Plan (1) Atrial fibrillation: - This may be from ETOH use, significant electrolyte abnormalities, vs other - Most recent echo with EF 65-70% with no wall motion abnormalities; type 1 diastolic dysfunction; RV pressure 37 mmHg - Remains in A Fib with intermittent RVR likely caused from agitation/alcohol withdraw - Increased Toprol XL to 75 mg daily and seems to have a positive response today - however will have to monitor as she was having bradycardia prior to withdrawal and likely tachycardia is from the withdrawal process and may need lower doses once through detox - After discussion with patient (when she was more coherent) and family they do elect for anticoagulation and agree to the co-pay - Eliquis 5 mg BID and monitor for signs of bleeding - may not be good option if she would return home but currently this is not a viable/safe option and planning on rehab - Cardiology following - appreciate assistance (2) Electrolyte abnormality: - Significant Hypokalemia, Hypomagnesemia, and Hyponatremia - all likely in the setting of ETOH abuse and poor nutrition - Monitor daily and replete as necessary (3) Weakness: - Likely multifactorial between chronic ETOH abuse vs poor nutrient intake vs maybe intermittent RVR - She may ultimately need an MRI as she is asymptomatic from her A Fib and maybe remote CVA? No focal deficits appreciated from the exam you can get but if she is having some ataxic issues with walking maybe need MRI? However in her current agitation/withdrawal she would not be able to tolerate MRI at this time - PT/OT evaluations; case management assistance (4) Alcohol abuse: - With Delirium tremens - having tachycardia/hypertension/tachypnea/hallucinations - seems to be worse at night and likely superimposed on dementia with hospital delirium given the - Reports she drinks 2 good sized glasses of mixed drinks utilizing Vodka and states this is cut back from her normal; states she hasn't gone very many days without drinking so states she has never withdrawn or had seizures in the past -- Family states she drinks significantly more and typically drinks until she is very intoxicated or blacks out - Per son, she has gone to ETOH rehab when he was a teenager and this is a lifelong problem; patient however expresses that she used to have evening cocktails with her who in 2014 and she continues to drink because this was something they shared together - Definitely mixed diagnosis of substance abuse but also untreated depre ssion/anxiety; son denies - Family states she enjoys her Xanax and now is rationing this because her PCP is no longer prescribing it - was ordered for HS use however in the setting of withdrawal will hold it due to Ativan PRN dosing - Ultimately any behavioral health medication is not safe with concurrent ETOH use but she would highly benefit from inpatient ETOH rehab, therapy/counseling, and SSRI with avoidance of benzodiazepines - She is currently exhibiting signs of withdraw - family feels she has some dementia at baseline and tends to have some flight of ideas but now is exhibiting some paranoid thinking/confabulation/hallucinations/agitation/physical symptoms of withdrawal - AWSS protocol completed Gabapentin taper without much improvement - will MAURISIO Librium 25 mg Q8H and continue PRN Ativan and hopefully will reduce need for PRN Ativan; Will place Seroquel 12.5 mg HS to help with sundowning but will have to monitor as this could decrease seizure threshold - Is continues to be hypertension could consider Clonidine - Last drink 3/4 around 6 PM (5) Hypertension: - Hold Amlodipine - likely will utilize rate control medication that can d ouble for BP control (6) DVT prophylaxis: - Eliquis Disposition: Await detox which may be prolonged - appreciate PT/OT evaluations however may need to wait until withdraw improves - planning on physical rehab on D/C and possible alcohol rehab after; Updated family on 07/26 - Son is POA Subjective Patient required significant amounts of Ativan overnight. She does have some suspected dementia and likely is having a combination of delirium from dementia as well as withdrawal. A lot calmer today with MAURISIO Librium. Will also trial a low dose Seroquel to help curb some sundowning. HR improved with increase in BB therapy. Continues to be confused and mostly gives irrelevant answers to questions asked. When asked where she is she recites her home address. She is frequently talking however no context to the conversation. Review of Systems Unobtainable due to mental health condition (distracted; conversation without context) Physical Exam Vital Signs (Past 24 Hours): Last Vital Signs Temp 36.6 C 07/27/18 16:42 Pulse 84 07/27/18 16:42 Resp 18 07/27/18 16:42 BP 124/77 07/27/18 16:42 Pulse Ox 98 07/27/18 16:42 Constitutional: + disheveled; no acute distress, not ill appearing and not diaphoretic Eyes: + anicteric sclerae Neck: trachea midline Respiratory: normal respiratory effort and + cough Auscultation: + rhonchi Cardiovascular: Rate/Rhythm: + tachycardic; + abnormal rhythm (irregular) Gastrointestinal (Abdomen): Inspection/Auscultation: normal bowel sounds Percussion/Palpation: abdomen soft; abdomen nontender Musculoskeletal: Head/Neck/Chest: normocephalic, head atraumatic and neck supple Skin: no rashes, warm and dry Neurologic: moves all extremities Motor/Sensory: + tremor Psychiatric: Orientation: alert; + not oriented x 3 (only oriented to self) Apperance: + disheveled Eye Contact: + poor eye contact Motor Behavior: + psychomotor agitation (improved) Mood: + anxious mood (mild) Thought Process: + tangential thought process Thought Content: + paranoid and + cognitive distortions Insight: + poor insight Judgement: + poor judgement
[2018-07-27] MEDS: LORazepam 1 MG/2 ML VIAL IV PRN (20:08)
[2018-07-27] MEDS: QUETIAPINE FUMARATE 25 MG TABLET PO SCH (20:08)
[2018-07-28] MEDS: chlordiazePOXIDE HCl 25 MG CAP PO SCH ×4 (00:01→16:42)
[2018-07-28 06:51] LABS: Hematocrit (blood only) 32.9 % (37-47); Hemoglobin 10.8 g/dL (12.0-16.0); Mean Corpuscular Hgb Conc 32.8 g/dL (32-36); Mean Corpuscular Volume 96.8 fL (80-100); Platelet Count 177 K/uL (130-400); RDW Coefficient of Variation 13.1 % (11.5-14.5); RDW Standard Deviation 45.8 fL (36.4-46.3); White Blood Count 6.89 K/uL (4.8-10.8)
[2018-07-28 07:04] LABS: BUN Creatinine Ratio 23.7 (10-20); Calcium 9.1 mg/dl (8.5-10.1); Creatinine Clr Calc Pharmacy 31.9 ml/min; Est GFR (African American) 42.9; Magnesium 1.9 mg/dl (1.8-2.4); Potassium 4.6 mmol/L (3.5-5.1)
[2018-07-28] MEDS: MAGNESIUM OXIDE 400 MG TAB PO SCH ×2 (07:59→21:12)
[2018-07-28] MEDS: THIAMINE HCL 100 MG TAB PO SCH (08:00)
[2018-07-28] MEDS: FOLIC ACID 1 MG TAB PO SCH (08:00)
[2018-07-28] MEDS: APIXABAN 5 MG TABLET PO SCH ×2 (08:00→21:12)
--- NOTE | 2018-07-28 08:24 | Hospitalist Progress Note ---
Date of Service July 28, 2018 Assessment & Plan (1) Atrial fibrillation: - This may be from ETOH use, significant electrolyte abnormalities, and now a bit of dehydration, RVR with activity as high as 190s - Most recent echo with EF 65-70% with no wall motion abnormalities; type 1 diastolic dysfunction; RV pressure 37 mmHg - Increased Toprol XL to 75 mg daily with positive response - resting rate controlled but still having RVR with activity - continue to utilize prn IV metoprolol as her pressure can tolerate - will have to monitor as she was having bradycardia prior to withdrawal and likely tachycardia is from the withdrawal process and may need lower doses once through detox - After discussion with patient (when she was more coherent) and family they do elect for anticoagulation and agree to the co-pay - Eliquis 5 mg BID and monitor for signs of bleeding - may not be good option if she would return home but currently this is not a viable/safe option and planning on rehab - Cardiology following - appreciate assistance (2) Electrolyte abnormality: - Significant Hypokalemia, Hypomagnesemia, and Hyponatremia - all likely in the setting of ETOH abuse and poor nutrition, resolved - Monitor daily and replete as necessary (3) Weakness: - Likely multifactorial between chronic ETOH abuse vs poor nutrient intake vs maybe intermittent RVR - She may ultimately need an MRI as she is asymptomatic from her A Fib and maybe remote CVA? No focal deficits. Could consider when patient is through the detox process, but at this time she is unlikely to be able to tolerate it. - PT/OT evaluations; case management assistance (4) Alcohol abuse: - With Delirium tremens - improved tachycardia/hypertension/tachypnea/hallucinations - likely superimposed on dementia with hospital delirium given the - Reports she drinks 2 good sized glasses of mixed drinks utilizing Vodka and states this is cut back from her normal; states she hasn't gone very many days without drinking so states she has never withdrawn or had seizures in the past -- Family states she drinks significantly more and typically drinks until she is very intoxicated or blacks out - Per son, she has gone to ETOH rehab when he was a teenager and this is a lifelong problem; patient however expresses that she used to have evening cocktails with her who in 2014 and she continues to drink because this was something they shared together - Likely mixed diagnosis of substance abuse but also untreated depression/anxiety; son denies - Family states she enjoys her Xanax and now is rationing this because her PCP is no longer prescribing it - was ordered for HS use however in the setting of withdrawal will hold it due to Ativan PRN dosing - Ultimately any behavioral health medication is not safe with concurrent ETOH use but she would highly benefit from inpatient ETOH rehab, therapy/counseling, and SSRI with avoidance of benzodiazepines - She is currently exhibiting signs of withdraw - family feels she has some dementia at baseline and tends to have some flight of ideas but now is exhibiting some paranoid thinking/confabulation/kent llucinations/agitation/physical symptoms of withdrawal - AWSS protocol completed Gabapentin taper without much improvement - continue scheduled Librium 25 mg Q8H and continue PRN Ativan and hopefully will reduce need for PRN Ativan; Will place Seroquel 12.5 mg HS to help with sundowning but will have to monitor as this could decrease seizure threshold - Last drink / around 6 PM (5) Hypertension: - Hold Amlodipine - patient requiring quite a bit of metoprolol for rate control (6) JESS (acute kidney injury): Creatinine 1.43 - patient appearing clinically dry - will give 1L NSS @ 100 ml/hr - monitor for fluid overload as patient did have pleural effusions and some vascular congestion on initial CXR (7) DVT prophylaxis: - Eliquis Disposition: Await detox which may be prolonged - appreciate PT/OT evaluations however may need to wait until withdraw improves - planning on physical rehab on D/C and possible alcohol rehab after; Updated family on 07/26 - Son is POA Subjective Ms. Bradley is awake and alert but still quite confused. No complaints other than thirst. She continues to require a 1:1 sitter Review of Systems All systems reviewed & are unremarkable except as noted in HPI & below Physical Exam Vital Signs (Past 24 Hours): Last Vital Signs Temp 36.9 C 07/28/18 04:00 Pulse 62 07/28/18 04:00 Resp 16 07/28/18 04:00 BP 115/76 07/28/18 04:00 Pulse Ox 100 07/28/18 04:00 Physical Exam: General: no distress Eyes: normal inspection, PERLL Respiratory: chest non tender, clear to auscultation, normal breath sounds, no respiratory distress, no accessory muscle use Cardiac: irregular rate and rhythm, no rub or gallop, no murmur, no edema, no jvd GI/: active bowel sounds, no abd pain or tenderness, soft, non distended Extremities: normal range of motion, normal strength, non tender Neuro/Psych: alert and oriented to person, normal mood and affect, CN II-XII intact Skin: normal color, dry, mucous membranes dry Results & Data Laboratory Results Abnormal lab results 07/24/18 07/28/18 07/28/18 Range/Units 17:40 06:30 06:30 RBC 3.40 L (4.2-5.4) M/uL Hgb 10.8 L (12.0-16.0) g/dL Hct 32.9 L (37-47) % BUN 34 H (7-18) mg/dl Creatinine 1.43 H (0.6-1.2) mg/dl BUN/Creatinine Ratio 23.7 H (10-20) Glucose 100 H (70-99) mg/dl U [place]-Alprazolam Confrm 892 A (CUTOFF=25) NG/ML
[2018-07-28] MEDS ORDERED: METOPROLOL SUCC 25MG EXT REL TAB PO SCH (09:00)
[2018-07-28] MEDS ORDERED: SODIUM CHLORIDE 0.9% 1000ML 1,000 ML IV SCH (10:15)
[2018-07-28] MEDS: METOPROLOL TARTRATE 1 MG/ML VIAL IV PRN ×2 (11:36→15:13)
[2018-07-28] MEDS: QUETIAPINE FUMARATE 25 MG TABLET PO SCH (21:12)
[2018-07-29] MEDS: chlordiazePOXIDE HCl 25 MG CAP PO SCH ×3 (01:18→17:06)
[2018-07-29] MEDS: MAGNESIUM OXIDE 400 MG TAB PO SCH ×2 (08:27→21:51)
[2018-07-29] MEDS: APIXABAN 5 MG TABLET PO SCH ×2 (08:27→21:51)
[2018-07-29] MEDS: LORazepam 1 MG/2 ML VIAL IV PRN ×2 (08:27→12:18)
[2018-07-29] MEDS: FOLIC ACID 1 MG TAB PO SCH (08:31)
[2018-07-29] MEDS: THIAMINE HCL 100 MG TAB PO SCH (08:31)
[2018-07-29] MEDS ORDERED: METOPROLOL SUCC 50MG EXT REL TAB PO SCH (09:00)
[2018-07-29 09:35] LABS: BUN Creatinine Ratio 25.5 (10-20); Calcium 9.2 mg/dl (8.5-10.1); Creatinine Clr Calc Pharmacy 35.2 ml/min; Est GFR (African American) 48.1; Est GFR (Non-African American) 41.5; Potassium 4.2 mmol/L (3.5-5.1)
[2018-07-29] MEDS: LORazepam 2 MG/4 ML VIAL IV PRN ×2 (09:43→12:18)
[2018-07-29] MEDS: METOPROLOL TARTRATE 1 MG/ML VIAL IV PRN (12:18)
[2018-07-29] MEDS ORDERED: METOPROLOL SUCC 50MG EXT REL TAB PO STA ×2 (13:24→17:27)
--- NOTE | 2018-07-29 13:24 | Cardiology Progress Note ---
Date of Service July 29, 2018 Assessment & Plan (1) New onset atrial fibrillation: The heart rate has been elevated on metoprolol succinate 75 mg daily. That was increased to 100 mg this morning, although his blood pressure has been normal at times it is not been low. I am going to continue to increase his metoprolol. I am going to give an additional 50 mg today and go up to 150 mg daily. If his heart rate remains elevated 3-4 hours after the additional dose today we can give another 50 and go up to 200 mg tomorrow. After that I would add other agents. Subjective She is confused, denies cardiovascular symptoms but her heart rate is quite elevated. Physical Exam Vital Signs (Past 24 Hours): Last Vital Signs Temp 36.6 C 07/29/18 11:35 Pulse 122 H 07/29/18 12:18 Resp 18 07/29/18 11:35 BP 161/86 H 07/29/18 12:18 Pulse Ox 93 07/29/18 11:35 Physical Exam: Constitutional: Alert, cooperative and in no distress. Pulmonary: Clear to auscultation bilaterally. Cardiac: Irregular rapid rhythm with no murmur, gallop or rub. Abdomen: Soft, nontender with normal bowel sounds. Extremities: No edema. Skin: No rash, ecchymoses or petechiae. Results & Data Diagnostic Findings Telemetry: Atrial fibrillation with an overall rapid heart rate
--- NOTE | 2018-07-29 13:38 | Hospitalist Progress Note ---
Date of Service July 29, 2018 Assessment & Plan (1) Atrial fibrillation: - This may be from ETOH use, significant electrolyte abnormalities, and now a bit of dehydration, RVR with activity as high as 190s - Most recent echo with EF 65-70% with no wall motion abnormalities; type 1 diastolic dysfunction; RV pressure 37 mmHg - Increased Toprol XL to 150 mg daily per cardiology - 1teens to 130s this afternoon per nursing. Discussed with cardiology and will give another 50 mg metoprolol succinate tonight and increase to 200 mg tomorrow morning. May need to add second agent tomorrow. Will have to monitor as she was having bradycardia prior to withdrawal and likely tachycardia is from the withdrawal process and may need lower doses once through detox - After discussion with patient (when she was more coherent) and family they do elect for anticoagulation and agree to the co-pay - Eliquis 5 mg BID and monitor for signs of bleeding - may not be good option if she would return home but currently this is not a viable/safe option and planning on rehab - Cardiology following - appreciate assistance (2) Electrolyte abnormality: - Significant Hypokalemia, Hypomagnesemia, and Hyponatremia - all likely in the setting of ETOH abuse and poor nutrition, resolved - Monitor daily and replete as necessary (3) Weakness: - Likely multifactorial between chronic ETOH abuse vs poor nutrient intake vs maybe intermittent RVR - She may ultimately need an MRI as she is asymptomatic from her A Fib and maybe remote CVA? Continues to have no focal deficits though today she was not as co operative with assessment. Could consider when patient is able to tolerate it but at this time I think her agitation would keep her from getting through the exam - PT/OT evaluations; case management assistance (4) Alcohol abuse: - With Delirium tremens - improved tachycardia/hypertension/tachypnea/hallucinations - likely superimposed on dementia with hospital delirium given the - Reports she drinks 2 good sized glasses of mixed drinks utilizing Vodka -- Family states she drinks significantly more and typically drinks until she is very intoxicated or blacks out - looking back at her past admission for detox she reported drinking over a fifth of vodka every day - Per son, she has gone to ETOH rehab when he was a teenager and this is a l ifelong problem; patient however expresses that she used to have evening cocktails with her who in 2014 and she continues to drink because this was something they shared together - May be mixed diagnosis of substance abuse but also untreated depression/anxiety; son denies - Family states she enjoys her Xanax and now is rationing this because her PCP is no longer prescribing it - was ordered for HS use however in the setting of withdrawal will hold it due to Ativan PRN dosing - Ultimately any behavioral health medication is not safe with concurrent ETOH use but she would highly benefit from inpatient ETOH rehab, therapy/counseling, and SSRI with avoidance of benzodiazepines - She is currently exhibiting signs of withdraw - family feels she has some dementia at baseline and tends to have some flight of ideas but now is exhibiting some paranoid thinking/confabulation/hallucinations/agitation/physical symptoms of withdrawal - AWSS protocol completed Gabapentin taper without much improvement - continue scheduled Librium 25 mg Q8H and continue PRN Ativan and hopefully will reduce need for PRN Ativan; will increase quetiapine from 12.5 to 25 mg HS to help with sundowning and sleep as patient has not slept much per nursing - monitor as this can lower seizure threshold - Last drink / around 6 PM (5) Metabolic encephalopathy: Unclear at this point what is continuing to cause her behavioral disturbance. She's far enough out that delirium tremens should not be as big a contributor. Certainly hospital delirium/dementia could be contributing and quetiapine was increased for tonight to encourage sleep. Will treat for Wernicke's with 500 mg thiamine TID for 2 days and then 250 mg daily for 5 days though I did not see nystagmus and she has not been out of bed to assess gait due to her agitation and weakness. Her ammonia level was normal. U/A looked like she may have an infection, will treat with ceftriaxone daily and await cultures. As discussed above, I don't think an MRI would be possible without significant sedation at this time. She may need a psych consult if none of these interventions result in improvement (6) JESS (acute kidney injury): Creatinine 1.43 07/28 improved to 1.3 today - will give another 1L NSS @ 100 ml/hr - monitor for fluid overload as patient did have pleural effusions and some vascular congestion on initial CXR PRP am (7) Hypertension: - Will restart amlodipine as patient is hypertensive (8) DVT prophylaxis: - Eliquis Disposition: Await detox which may be prolonged - appreciate PT/OT evaluations however may need to wait until withdraw improves - planning on physical rehab on D/C and possible alcohol rehab after; Updated family on 07/26 - Son is POA Subjective Ms. Bradley continues to be very confused and agitated with elevated heart rates. She is unable to provide review of symptoms Physical Exam Vital Signs (Past 24 Hours): Last Vital Signs Temp 36.6 C 07/29/18 11:35 Pulse 122 H 07/29/18 12:18 Resp 18 07/29/18 11:35 BP 161/86 H 07/29/18 12:18 Pulse Ox 93 07/29/18 11:35 Physical Exam: General: no distress Eyes: normal inspection, PERLL Respiratory: chest non tender, clear to auscultation, normal breath sounds, no respiratory distress, no accessory muscle use Cardiac: regular rate and rhythm, no rub or gallop, no murmur, no edema, no jvd GI/: active bowel sounds, no abd pain or tenderness, soft, non distended Extremities: normal range of motion, normal strength, non tender Neuro/Psych: oriented to person, somewhat agitated, very confused and unable to answer questions Skin: normal color, dry Results & Data Laboratory Results Abnormal lab results 07/29/18 Range/Units 08:29 BUN 33 H (7-18) mg/dl Creatinine 1.30 H (0.6-1.2) mg/dl BUN/Creatinine Ratio 25.5 H (10-20) Glucose 129 H (70-99) mg/dl
[2018-07-29] MEDS ORDERED: THIAMINE HCL 500 MG in 0.9 % SODIUM CHLORIDE 100 ML IV ONE (14:30)
[2018-07-29 14:53] LABS: Appearance Urine Turbid (Clear); Bacteria Urine Automated 4+ (Negative); Bilirubin Urine Negative (Negative); Blood Urine 2+ (Negative); Color Urine Yellow; Glucose Urine UA Negative (Negative); Ketones Urine Trace (Negative); Leukocyte Esterase Urine 3+ (Negative); Nitrite Urine Positive (Negative); Protein Urine Trace (Negative); Specific Gravity Urine 1.019 (1.000-1.030); Urobilinogen Urine Negative (Negative); WBC Urine Automated >30 /hpf (0-5)
[2018-07-29] MEDS ORDERED: SODIUM CHLORIDE 0.9% 1000ML 1,000 ML IV SCH (16:00)
[2018-07-29] MEDS: cefTRIAXone SODIUM 1,000 MG in DEXTROSE 5% 50 ML IV SCH (17:04)
[2018-07-29] MEDS: QUETIAPINE FUMARATE 25 MG TABLET PO SCH (21:51)
[2018-07-29] MEDS: THIAMINE HCL 500 MG in 0.9 % SODIUM CHLORIDE 100 ML IV SCH (21:52)
[2018-07-30] MEDS: chlordiazePOXIDE HCl 25 MG CAP PO SCH ×2 (01:23→08:48)
--- NOTE | 2018-07-30 08:21 | Cardiology Progress Note ---
Date of Service July 30, 2018 Assessment & Plan (1) New onset atrial fibrillation: Her heart rate remains elevated on what I would consider maximal doses of beta-blockade. We will need to add another agent, I am going to add diltiazem this morning to try to control heart rate. She is asymptomatic but the heart rate is too fast. Subjective She is confused, denies cardiovascular symptoms but her heart rate is quite elevated. She is rambling about her and brother. Physical Exam Vital Signs (Past 24 Hours): Last Vital Signs Temp 37.2 C 07/30/18 07:03 Pulse 101 H 07/30/18 07:03 Resp 20 07/30/18 07:03 BP 135/80 07/30/18 07:03 Pulse Ox 94 07/30/18 07:03 Physical Exam: Constitutional: Alert, cooperative and in no distress. Pulmonary: Clear to auscultation bilaterally. Cardiac: Irregular rapid rhythm with no murmur, gallop or rub. Abdomen: Soft, nontender with normal bowel sounds. Extremities: No edema. Skin: No rash, ecchymoses or petechiae.
[2018-07-30] MEDS: FOLIC ACID 1 MG TAB PO SCH (08:31)
[2018-07-30] MEDS: METOPROLOL SUCC 50MG EXT REL TAB PO SCH (08:31)
[2018-07-30] MEDS: AMLODIPINE BESYLATE 5 MG TAB PO SCH (08:32)
[2018-07-30] MEDS: MAGNESIUM OXIDE 400 MG TAB PO SCH ×2 (08:32→20:55)
[2018-07-30] MEDS: APIXABAN 5 MG TABLET PO SCH ×2 (08:32→20:55)
[2018-07-30] MEDS: THIAMINE HCL 500 MG in 0.9 % SODIUM CHLORIDE 100 ML IV SCH ×3 (08:35→21:02)
[2018-07-30] MEDS ORDERED: METOPROLOL SUCC 50MG EXT REL TAB PO SCH (09:00)
[2018-07-30 09:06] LABS: Hematocrit (blood only) 31.6 % (37-47); Hemoglobin 10.5 g/dL (12.0-16.0); Mean Corpuscular Hgb Conc 33.2 g/dL (32-36); Mean Corpuscular Volume 94.3 fL (80-100); Mean Platelet Volume 9.7 fL (7.4-10.4); Platelet Count 288 K/uL (130-400); RDW Coefficient of Variation 13.2 % (11.5-14.5); RDW Standard Deviation 45.2 fL (36.4-46.3); Red Blood Count 3.35 M/uL (4.2-5.4); White Blood Count 6.27 K/uL (4.8-10.8)
[2018-07-30] MEDS: dilTIAZem HCL 30 MG TAB PO SCH ×3 (09:08→20:55)
[2018-07-30 09:18] LABS: Albumin Level 2.7 gm/dl (3.4-5.0); BUN Creatinine Ratio 24.8 (10-20); Calcium 9.2 mg/dl (8.5-10.1); Creatinine Clr Calc Pharmacy 32.4 ml/min; Est GFR (African American) 43.6; Est GFR (Non-African American) 37.6; Magnesium 1.5 mg/dl (1.8-2.4); Potassium 4.2 mmol/L (3.5-5.1)
[2018-07-30 09:21] LABS: Albumin Globulin Ratio 0.9 (0.9-2); Bilirubin,Total 0.3 mg/dl (0.2-1); Globulin 3.1 gm/dl (2.5-4.0); Total Protein 5.8 gm/dl (6.4-8.2)
[2018-07-30] MEDS: MAGNESIUM SULFATE / D5W 1 GM/100 ML BAG IV SCH ×2 (10:59→12:15)
[2018-07-30] MEDS: LORazepam 2 MG/4 ML VIAL IV PRN (11:06)
--- NOTE | 2018-07-30 13:09 | Hospitalist Progress Note ---
Date of Service July 30, 2018 Assessment & Plan (1) Atrial fibrillation: - Remains in A. fib, HR ~100-130's on monitor. - Likely related to ETOH abuse, electrolyte abnormalities & dehydration. - Echo in Mar 2018 showed EF 65-70%, grade I diastolic dysfunction. - Cardiology following, appreciate input. - Increased Metoprolol XL to 200 mg daily starting today (07/30/18); may need lower dose once ETOH withdrawal completed as pt. has had h/o bradycardia. - Started Eliquis 5 mg BID - may not be good option for discharge to home due to ETOH abuse/risk for falls. (2) Metabolic encephalopathy: - Etiology of confusion is unclear -- ETOH abuse vs. hospital delirium with underlying dementia vs. UTI. - Started high dose Thiamine IV for treatment of Wernicke's encephalopathy. - Ammonia level was WNL; consider RUQ imaging to evaluate liver. - UC was positive; on Ceftriaxone IV. - Consider brain MRI if agitation improves -- pt. cannot tolerate imaging at this point, can receive imaging with sedation if necessary. (3) Alcohol abuse: - Delirium tremens noted during this admission with tachyardia/hallucinations; has ongoing symptoms of ETOH withdrawal. - Reported drinking 2 glasses of mixed drinks with vodka per day; family states she drinks significantly more to point of blacking out. Previous admissions state pt. drinks a fifth of vodka per day. - Has been treated at ETOH rehab in past as teenager; acute issues may be related to substance abuse and to passing away with mix of anxiety/depression. - AWSS protocol; receiving Ativan doses prn. - Will d/c Librium and start Phenobarbital 30 mg BID due to ongoing confusion. - Thiamine and Folic acid ordered. - Increased Seroquel to 25 mg qhs in setting of insomnia/sundowning. - Will benefit from ETOH rehab and therapy services following discharge from SNF. - Holding home Xanax as pt. receiving Ativan; her PCP is no longer prescribing benzos, will need to taper off medication. (4) JESS (acute kidney injury): - Creatinine remains elevated above baseline at 1.4. - Monitor renal function daily. - Avoid continuous IV fluids due to evidence of vascular congestion on chest imaging. (5) CKD (chronic kidney disease) stage 3, GFR 30-59 ml/min: - Renally dose all meds. (6) UTI (urinary tract infection): - UC positive for gram negative bacilli - On Ceftriaxone IV as noted above. (7) Chronic diastolic heart failure: - Echo in Mar 2018 showed grade I DD, EF 65-70%. - Continue beta edwin. - Monitor net I/O's and daily weights -- wght slightly decreased from admission. - Will need educated on monitoring weights and intake at home in setting of heavy ETOH abuse. (8) Hypertension: - Restarted home Amlodipine 2.5 mg daily. - Continue Metoprolol and Cardizem. - BP now improved overall. (9) Electrolyte abnormality: - Mag level 1.5 -- ordered mag sulfate 2 gm IV. - Replace as needed. (10) Weakness: - Likely multifactorial between chronic ETOH abuse vs poor nutrient intake vs A. fib with RVR. - PT/OT - plan for discharge to acute rehab. (11) DVT prophylaxis: - Eliquis BID. Disposition: Discharge to SNF pending ETOH detox completion; will need ETOH rehab following SNF placement. Supervising Physician Co-Signing Physician Notes Attending Attestation- Chart reviewed, care plan d/w PA Ester Castellano in detail. Patient now at least 7 days out from last alcoholic beverage. She could still have DTs -- DTs can sometimes last as long as 10 days. Would change librium to phenobarbital for etoh withdrawal as the librium could cause sedation. Supportive care including antibiotics for UTI. Zeke Pack MD Subjective Pt. remains very confused today; has one to one at bedside. Is not alert to person or place. No family was present at bedside during rounds, will speak with family member later today. At this time, pt. cannot tolerate brain MRI due to agitation. Review of Systems Unobtainable due to cognitive status Physical Exam Vital Signs (Past 24 Hours): Last Vital Signs Temp 36.9 C 07/30/18 10:29 Pulse 94 H 07/30/18 10:29 Resp 18 07/30/18 10:29 BP 155/86 H 07/30/18 10:29 Pulse Ox 98 07/30/18 10:29 Physical Exam: General: Lying in bed, appears to be in mild distress. HEENT: NC/AT; PERRLA with EOMI; [place] conjunctiva, MMM. Neck: Supple and nontender Cardiac: irregular Lungs: CTA bilaterally Abdomen: Bowel normoactive X 4; Nontender to palpation Extremities: Warm. No edema present Neuro: Not alert to person or place, very agitated. Cannot answer questions appropriately. Skin: No rash Results & Data Laboratory Results 07/30/18 07/30/18 07/29/18 Range/Units 08:41 08:41 14:30 WBC 6.27 (4.8-10.8) K/uL RBC 3.35 L (4.2-5.4) M/uL Hgb 10.5 L (12.0-16.0) g/dL Hct 31.6 L (37-47) % MCV 94.3 (80-100) fL MCH 31.3 (25-34) pg MCHC 33.2 (32-36) g/dL RDW Std Deviation 45.2 (36.4-46.3) fL RDW Coeff of Mario 13.2 (11.5-14.5) % Plt Count 288 (130-400) K/uL MPV 9.7 (7.4-10.4) fL Sodium 141 (136-145) mmol/L Potassium 4.2 (3.5-5.1) mmol/L Chloride 106 (98-107) mmol/L Carbon Dioxide 28 (21-32) mmol/L Anion Gap 7.0 (3-11) BUN 35 H (7-18) mg/dl Creatinine 1.41 H (0.6-1.2) mg/dl Est Cr Clr Drug Dosing 32.4 ml/min Est GFR ( Amer) 43.6 Est GFR (Non-Af Amer) 37.6 BUN/Creatinine Ratio 24.8 H (10-20) Glucose 125 H (70-99) mg/dl Calcium 9.2 (8.5-10.1) mg/dl Magnesium 1.5 L (1.8-2.4) mg/dl Total Bilirubin 0.3 (0.2-1) mg/dl AST 18 (15-37) U/L ALT 19 (12-78) U/L Alkaline Phosphatase 85 (45-117) U/L Ammonia (11-32) umol/L Total Protein 5.8 L (6.4-8.2) gm/dl Albumin 2.7 L (3.4-5.0) gm/dl Globulin 3.1 (2.5-4.0) gm/dl Albumin/Globulin Ratio 0.9 (0.9-2) Urine Color Yellow Urine Appearance Turbid H (Clear) Urine pH 7.0 (4.5-7.5) Ur Specific [place] 1.019 (1.000-1.030) Urine Protein Trace H (Negative) Urine Glucose (UA) Negative (Negative) Urine Ketones Trace H (Negative) Urine Blood 2+ H (Negative) Urine Nitrite Positive H (Negative) Urine Bilirubin Negative (Negative) Urine Urobilinogen Negative (Negative) Ur Leukocyte Esterase 3+ H (Negative) Urine WBC (Auto) >30 H (0-5) /hpf Urine RBC (Auto) 10-30 H (0-4) /hpf U Hyaline Cast (Auto) 1-5 (0-5) /lpf U Epithel Cells (Auto) 10-20 H (0-5) /lpf Urine Bacteria (Auto) 4+ H (Negative) 07/29/18 Range/Units 14:19 WBC (4.8-10.8) K/uL RBC (4.2-5.4) M/uL Hgb (12.0-16.0) g/dL Hct (37-47) % MCV (80-100) fL MCH (25-34) pg MCHC (32-36) g/dL RDW Std Deviation (36.4-46.3) fL RDW Coeff of Mario (11.5-14.5) % Plt Count (130-400) K/uL MPV (7.4-10.4) fL Sodium (136-145) mmol/L Potassium (3.5-5.1) mmol/L Chloride (98-107) mmol/L Carbon Dioxide (21-32) mmol/L Anion Gap (3-11) BUN (7-18) mg/dl Creatinine (0.6-1.2) mg/dl Est Cr Clr Drug Dosing ml/min Est GFR ( Amer) Est GFR (Non-Af Amer) BUN/Creatinine Ratio (10-20) Glucose (70-99) mg/dl Calcium (8.5-10.1) mg/dl Magnesium (1.8-2.4) mg/dl Total Bilirubin (0.2-1) mg/dl AST (15-37) U/L ALT (12-78) U/L Alkaline Phosphatase (45-117) U/L Ammonia 11.0 (11-32) umol/L Total Protein (6.4-8.2) gm/dl Albumin (3.4-5.0) gm/dl Globulin (2.5-4.0) gm/dl Albumin/Globulin Ratio (0.9-2) Urine Color Urine Appearance (Clear) Urine pH (4.5-7.5) Ur Specific [place] (1.000-1.030) Urine Protein (Negative) Urine Glucose (UA) (Negative) Urine Ketones (Negative) Urine Blood (Negative) Urine Nitrite (Negative) Urine Bilirubin (Negative) Urine Urobilinogen (Negative) Ur Leukocyte Esterase (Negative) Urine WBC (Auto) (0-5) /hpf Urine RBC (Auto) (0-4) /hpf U Hyaline Cast (Auto) (0-5) /lpf U Epithel Cells (Auto) (0-5) /lpf Urine Bacteria (Auto) (Negative)
[2018-07-30] MEDS: cefTRIAXone SODIUM 1,000 MG in DEXTROSE 5% 50 ML IV SCH (17:14)
[2018-07-30] MEDS: PHENobarbital 32.4 MG TAB PO SCH (20:55)
[2018-07-30] MEDS: QUETIAPINE FUMARATE 25 MG TABLET PO SCH (20:55)
[2018-07-31 07:54] LABS: Hematocrit (blood only) 30.4 % (37-47); Hemoglobin 10.1 g/dL (12.0-16.0); Mean Corpuscular Hgb Conc 33.2 g/dL (32-36); Mean Corpuscular Volume 95.3 fL (80-100); Mean Platelet Volume 9.5 fL (7.4-10.4); Platelet Count 285 K/uL (130-400); RDW Coefficient of Variation 13.3 % (11.5-14.5); RDW Standard Deviation 45.8 fL (36.4-46.3); Red Blood Count 3.19 M/uL (4.2-5.4)
[2018-07-31] MEDS: PHENobarbital 32.4 MG TAB PO SCH ×2 (08:19→19:45)
[2018-07-31] MEDS: METOPROLOL SUCC 50MG EXT REL TAB PO SCH (08:19)
[2018-07-31] MEDS: AMLODIPINE BESYLATE 5 MG TAB PO SCH (08:19)
[2018-07-31] MEDS: MAGNESIUM OXIDE 400 MG TAB PO SCH ×2 (08:20→19:41)
[2018-07-31] MEDS: dilTIAZem HCL 30 MG TAB PO SCH ×3 (08:20→19:41)
[2018-07-31] MEDS: FOLIC ACID 1 MG TAB PO SCH (08:20)
[2018-07-31] MEDS: APIXABAN 5 MG TABLET PO SCH ×2 (08:21→19:40)
[2018-07-31 08:24] LABS: Albumin Level 2.6 gm/dl (3.4-5.0); BUN Creatinine Ratio 21.2 (10-20); Calcium 8.8 mg/dl (8.5-10.1); Creatinine Clr Calc Pharmacy 33.6 ml/min; Est GFR (African American) 45.6; Est GFR (Non-African American) 39.3; Magnesium 1.7 mg/dl (1.8-2.4); Potassium 3.7 mmol/L (3.5-5.1)
[2018-07-31 08:27] LABS: Albumin Globulin Ratio 0.9 (0.9-2); Bilirubin,Total 0.4 mg/dl (0.2-1); Globulin 2.9 gm/dl (2.5-4.0); Total Protein 5.6 gm/dl (6.4-8.2)
[2018-07-31] MEDS: THIAMINE HCL 500 MG in 0.9 % SODIUM CHLORIDE 100 ML IV SCH (08:52)
[2018-07-31] MEDS: LORazepam 2 MG/4 ML VIAL IV PRN (09:05)
[2018-07-31] MEDS: MAGNESIUM SULFATE / D5W 1 GM/100 ML BAG IV SCH ×2 (10:26→11:41)
--- NOTE | 2018-07-31 11:21 | Cardiology Progress Note ---
Date of Service July 31, 2018 Assessment & Plan (1) New onset atrial fibrillation: Her heart rate remains elevated on what I would consider maximal doses of beta-blockade. We will need to add another agent, I am going to add diltiazem this morning to try to control heart rate. She is asymptomatic but the heart rate is too fast. Subjective She remains confused and I cannot obtain a meaningful history Physical Exam Vital Signs (Past 24 Hours): Last Vital Signs Temp 36.4 C L 07/31/18 11:01 Pulse 85 07/31/18 11:01 Resp 16 07/31/18 11:01 BP 147/88 H 07/31/18 11:01 Pulse Ox 92 07/31/18 11:01 Physical Exam: Constitutional: Alert, cooperative and in no distress. Pulmonary: Clear to auscultation bilaterally. Cardiac: Irregular rhythm with no murmur, gallop or rub. Abdomen: Soft, nontender with normal bowel sounds. Extremities: No edema. Skin: No rash, ecchymoses or petechiae. Results & Data Diagnostic Findings Telemetry: Atrial fibrillation, rate is overall acceptably controlled on the current regimen. I will switch to long-acting diltiazem for tomorrow morning.
[2018-07-31] MEDS: THIAMINE HCL 250 MG in SODIUM CHLORIDE 0.9% 50 ML IV SCH (13:24)
--- NOTE | 2018-07-31 15:37 | Hospitalist Progress Note ---
Date of Service July 31, 2018 Assessment & Plan (1) Atrial fibrillation: - Remains in A. fib, now rate controlled with HR 70-80's. - Likely related to ETOH abuse, electrolyte abnormalities & dehydration. - Echo in Mar 2018 showed EF 65-70%, grade I diastolic dysfunction. - Cardiology following, appreciate input. - Increased Metoprolol XL to 200 mg daily on 07/30/18; may need lower dose once ETOH withdrawal completed as pt. has had h/o bradycardia. - Started Eliquis 5 mg BID - may not be good option for discharge to home due to ETOH abuse/risk for falls. (2) Metabolic encephalopathy: - Etiology of confusion is unclear -- ETOH abuse vs. hospital delirium with underlying dementia vs. UTI. - Continue high dose Thiamine IV for treatment of Wernicke's encephalopathy. - Ammonia level was WNL; consider RUQ imaging to evaluate liver. - UC positive; on Ceftriaxone IV. - Consider brain MRI if agitation improves -- pt. cannot tolerate imaging at this point without sedation. (3) Alcohol abuse: - Delirium tremens noted during this admission with tachyardia/hallucinations; has ongoing symptoms of ETOH withdrawal. - Reported drinking 2 glasses of mixed drinks with vodka per day; family states she drinks significantly more to point of blacking out. Previous admissions state pt. drinks a fifth of vodka per day. - Has been treated at ETOH rehab in past as teenager; acute issues may be related to substance abuse and to passing away with mix of anxiety/depression. - AWSS protocol; receiving Ativan doses prn. - D/c'ed Librium and started Phenobarbital 30 mg BID on 07/30/18. - Continue Thiamine and Folic acid. - Increased Seroquel to 25 mg qhs in setting of insomnia/sundowning. - Will benefit from ETOH rehab and therapy services following discharge from rehab -- discussed with her son. - Holding home Xanax as pt. receiving Ativan; her PCP is no longer prescribing benzos, will need to taper off medication in future. (4) Acute respiratory failure with hypoxia: - Has been requiring 4L via NC -- on room air at home. - Likely related to pulm vascular congestion -- holding IV fluids. - No diuretics indicated at this time, will monitor. (5) JESS (acute kidney injury): - Creatinine remains elevated above baseline at 1.36. - Monitor renal function daily. - Avoid continuous IV fluids due to evidence of vascular congestion on chest imaging. (6) CKD (chronic kidney disease) stage 3, GFR 30-59 ml/min: - Renally dose all meds. (7) UTI (urinary tract infection): - UC positive for Klebsiella oxytoca, Citrobacter freundii. - On Ceftriaxone IV per sensitivities (Day 3) (8) Chronic diastolic heart failure: - Echo in Mar 2018 showed grade I DD, EF 65-70%. - Continue beta edwin. - Monitor net I/O's and daily weights. - Will need educated on monitoring weights and intake at home in setting of heavy ETOH abuse. (9) Hypertension: - Continue Metoprolol, Amlodipine and Cardizem. (10) Electrolyte abnormality: - Mag level 1.7 -- ordered mag sulfate 2 gm IV. - Replace as needed. (11) Weakness: - Likely multifactorial between chronic ETOH abuse vs poor nutrient intake vs A. fib with RVR. - PT/OT - plan for discharge to acute rehab. (12) DVT prophylaxis: - Eliquis BID. Disposition: Discharge to SNF pending ETOH detox completion; will need ETOH rehab following SNF placement. Supervising Physician Co-Signing Physician Notes Attending Attestation- Chart reviewed, care plan d/w PA Ester Castellano in detail. Pt still with considerable confusion -- needing seroquel HS for such. Differential - DTs vs wernicke's-korsakoff's syndrome vs delirium in setting of a dementia process vs other. Keep electrolytes normal; continue high-dose thiamine; cont phenobarbital for possibility of DTs; cont seroquel; treat UTI. Zeke Pack MD Subjective Pt. remains confused, not alert to person or place. Per bedside nurse, she is having hallucinations -- has been seeing things on other side of room. Continues to require O2 via NC -- cannot wean oxygen per nurse. Discussed plan of care with the son last evening -- plan for discharge to rehab pending improvement in mental status. Review of Systems Unobtainable due to cognitive status Physical Exam Vital Signs (Past 24 Hours): Last Vital Signs Temp 36.5 C 07/31/18 15:23 Pulse 79 07/31/18 15:23 Resp 19 07/31/18 15:23 BP 113/75 07/31/18 15:23 Pulse Ox 98 07/31/18 15:23 Physical Exam: General: Lying in bed, in no acute distress. HEENT: NC/AT; PERRLA with EOMI; [place] conjunctiva, MMM. Neck: Supple and nontender Cardiac: irregular Lungs: CTA bilaterally Abdomen: Bowel normoactive X 4; Nontender to palpation Extremities: Warm. No edema present Neuro: Not alert to person or place, remains calm today. Cannot answer questions appropriately. Skin: No rash Results & Data Laboratory Results 07/31/18 07/31/18 Range/Units 07:27 07:27 WBC 5.50 (4.8-10.8) K/uL RBC 3.19 L (4.2-5.4) M/uL Hgb 10.1 L (12.0-16.0) g/dL Hct 30.4 L (37-47) % MCV 95.3 (80-100) fL MCH 31.7 (25-34) pg MCHC 33.2 (32-36) g/dL RDW Std Deviation 45.8 (36.4-46.3) fL RDW Coeff of Mario 13.3 (11.5-14.5) % Plt Count 285 (130-400) K/uL MPV 9.5 (7.4-10.4) fL Sodium 141 (136-145) mmol/L Potassium 3.7 (3.5-5.1) mmol/L Chloride 106 (98-107) mmol/L Carbon Dioxide 29 (21-32) mmol/L Anion Gap 6.0 (3-11) BUN 29 H (7-18) mg/dl Creatinine 1.36 H (0.6-1.2) mg/dl Est Cr Clr Drug Dosing 33.6 ml/min Est GFR ( Amer) 45.6 Est GFR (Non-Af Amer) 39.3 BUN/Creatinine Ratio 21.2 H (10-20) Glucose 99 (70-99) mg/dl Calcium 8.8 (8.5-10.1) mg/dl Magnesium 1.7 L (1.8-2.4) mg/dl Total Bilirubin 0.4 (0.2-1) mg/dl AST 18 (15-37) U/L ALT 19 (12-78) U/L Alkaline Phosphatase 75 (45-117) U/L Total Protein 5.6 L (6.4-8.2) gm/dl Albumin 2.6 L (3.4-5.0) gm/dl Globulin 2.9 (2.5-4.0) gm/dl Albumin/Globulin Ratio 0.9 (0.9-2)
[2018-07-31] MEDS: cefTRIAXone SODIUM 1,000 MG in DEXTROSE 5% 50 ML IV SCH (16:00)
[2018-07-31] MEDS: QUETIAPINE FUMARATE 25 MG TABLET PO SCH (19:40)
[2018-08-01 08:16] LABS: Hematocrit (blood only) 31.8 % (37-47); Hemoglobin 10.5 g/dL (12.0-16.0); Mean Corpuscular Volume 95.5 fL (80-100); Mean Platelet Volume 9.9 fL (7.4-10.4); Platelet Count 318 K/uL (130-400); RDW Coefficient of Variation 13.5 % (11.5-14.5); RDW Standard Deviation 46.9 fL (36.4-46.3); Red Blood Count 3.33 M/uL (4.2-5.4); White Blood Count 6.25 K/uL (4.8-10.8)
[2018-08-01 08:47] LABS: Albumin Level 2.5 gm/dl (3.4-5.0); BUN Creatinine Ratio 18.4 (10-20); Calcium 8.9 mg/dl (8.5-10.1); Creatinine Clr Calc Pharmacy 32.4 ml/min; Magnesium 2.1 mg/dl (1.8-2.4); Potassium 3.7 mmol/L (3.5-5.1)
[2018-08-01 08:50] LABS: Albumin Globulin Ratio 0.8 (0.9-2); Bilirubin,Total 0.3 mg/dl (0.2-1); Globulin 3.1 gm/dl (2.5-4.0); Total Protein 5.6 gm/dl (6.4-8.2)
[2018-08-01] MEDS: AMLODIPINE BESYLATE 5 MG TAB PO SCH (09:05)
[2018-08-01] MEDS: dilTIAZem HCL 120 MG CAPCR PO SCH (09:06)
[2018-08-01] MEDS: METOPROLOL SUCC 50MG EXT REL TAB PO SCH (09:06)
[2018-08-01] MEDS: FOLIC ACID 1 MG TAB PO SCH (09:06)
[2018-08-01] MEDS: MAGNESIUM OXIDE 400 MG TAB PO SCH ×2 (09:06→20:29)
[2018-08-01] MEDS: APIXABAN 5 MG TABLET PO SCH ×2 (09:07→20:28)
[2018-08-01] MEDS: PHENobarbital 32.4 MG TAB PO SCH ×2 (09:17→20:30)
[2018-08-01] MEDS: THIAMINE HCL 250 MG in SODIUM CHLORIDE 0.9% 50 ML IV SCH (10:39)
--- NOTE | 2018-08-01 11:12 | Hospitalist Progress Note ---
Date of Service August 01, 2018 Assessment & Plan (1) Atrial fibrillation: - Remains in A. fib, rate controlled; did have 3 second pause this morning with documented HR of 15. - Likely related to ETOH abuse, electrolyte abnormalities & dehydration. - Echo in Mar 2018 showed EF 65-70%, grade I diastolic dysfunction. - Cardiology following, appreciate input. - Increased Metoprolol XL to 200 mg daily; added Cardizem 120 mg qAM. - Started Eliquis 5 mg BID. - May need to titrate down cardiac meds if pt. has ongoing pauses -- has h/o bradycardia following ETOH withdrawal. (2) Metabolic encephalopathy: - Etiology of confusion is unclear -- ETOH abuse vs. hospital delirium with underlying dementia vs. UTI vs. underlying psych diagnosis. - Pt remains confused, no improvement with treatment of DTs (last drink on 07/23) - Received high dose Thiamine for treatment of Wernicke's encephalopathy; continue Thiamine 250 mg qAM. - Ammonia level was WNL. - UC positive; on IV abx as noted below. - Will attempt brain MRI to rule out CVA with pre-meds (Ativan) - Consult psych for evaluation -- son denies h/o psychiatric issues but pt. has not had any improvement with treatment of DTs. (3) Alcohol abuse: - Delirium tremens noted during this admission with tachyardia/hallucinations; has ongoing symptoms of ETOH withdrawal. - Reported drinking 2 glasses of mixed drinks with vodka per day; family states she drinks significantly more to point of blacking out. Previous admissions state pt. drinks a fifth of vodka per day. - Has been treated at ETOH rehab in past as teenager; substance abuse may be related to passing away with mix of anxiety/depression. - AWSS protocol; Ativan prn. - D/c'ed Librium and started Phenobarbital 30 mg BID on 07/30/18. - Continue Thiamine and Folic acid. - Seroquel to 25 mg qhs in setting of insomnia/sundowning. - Will benefit from ETOH rehab and therapy services following discharge from rehab -- discussed with her son. - Holding home Xanax as pt. receiving Ativan; her PCP is no longer prescribing benzos, will need to taper off medication in future. (4) Acute respiratory failure with hypoxia: - Was requiring 4L, now weaned to room air. - Likely related to pulm vascular congestion -- holding IV fluids. - No diuretics indicated at this time, will monitor. (5) JESS (acute kidney injury): - Creatinine remains elevated above baseline at 1.40. - Monitor renal function daily. - Avoid continuous IV fluids due to evidence of vascular congestion on chest imaging. (6) CKD (chronic kidney disease) stage 3, GFR 30-59 ml/min: - Renally dose all meds. (7) UTI (urinary tract infection): - UC positive for Klebsiella oxytoca, Citrobacter freundii. - On Ceftriaxone IV per sensitivities (Day 4 of 5) (8) Chronic diastolic heart failure: - Echo in Mar 2018 showed grade I DD, EF 65-70%. - Continue beta edwin. - Monitor net I/O's and daily weights. - Will need educated on monitoring weights and intake at home in setting of he sylvain ETOH abuse. (9) Hypertension: - Continue Metoprolol, Amlodipine and Cardizem. (10) Electrolyte abnormality: - No replacement required. (11) Weakness: - Likely multifactorial between chronic ETOH abuse vs poor nutrient intake vs A. fib with RVR. - PT/OT - plan for discharge to acute rehab. (12) DVT prophylaxis: - Eliquis BID. Disposition: Discharge to rehab pending ETOH detox completion/improvement in encephalopathy; recommend ETOH rehab following SNF placement. Supervising Physician Co-Signing Physician Notes Attending Attestation- Chart reviewed, care plan d/w SHANA Castellano in detail. I agree with MRI brain as DTs should be resolved and/or resolving at this point (we are nearly 10 days out from last alcoholic beverage). Agree with plans for a.fib. Consider neurology consultation. Consider psych evaluation. Will need rehab. Zeke Pack MD Subjective Ms. Bradley remains confused today, has required one to one support at bedside. She does answer correctly when asked about year but is not aware of person or place. Pt. asked the [employer] for a drink -- she specified with vodka. Will discuss plan of care with her son today as pt. has not had a significant improvement in encephalopathy with treatment of DTs. HR is rate controlled, remains in A. fib. She did have a 3 second pause this morning with drop in HR down to 15. HR now stable again ~60. Review of Systems Unobtainable due to cognitive status Physical Exam Vital Signs (Past 24 Hours): Last Vital Signs Temp 36.5 C 08/01/18 06:25 Pulse 89 08/01/18 08:19 Resp 16 08/01/18 08:19 BP 117/78 08/01/18 08:19 Pulse Ox 94 08/01/18 08:19 Physical Exam: General: Lying in bed, in no acute distress. HEENT: NC/AT; PERRLA with EOMI; [place] conjunctiva, MMM. Neck: Supple and nontender Cardiac: irregular Lungs: CTA bilaterally Abdomen: Bowel normoactive X 4; Nontender to palpation Extremities: Warm. No edema present Neuro: Not alert to person or place. Skin: No rash Results & Data Laboratory Results 08/01/18 08/01/18 Range/Units 07:22 07:22 WBC 6.25 (4.8-10.8) K/uL RBC 3.33 L (4.2-5.4) M/uL Hgb 10.5 L (12.0-16.0) g/dL Hct 31.8 L (37-47) % MCV 95.5 (80-100) fL MCH 31.5 (25-34) pg MCHC 33.0 (32-36) g/dL RDW Std Deviation 46.9 H (36.4-46.3) fL RDW Coeff of Mario 13.5 (11.5-14.5) % Plt Count 318 (130-400) K/uL MPV 9.9 (7.4-10.4) fL Sodium 143 (136-145) mmol/L Potassium 3.7 (3.5-5.1) mmol/L Chloride 108 H (98-107) mmol/L Carbon Dioxide 27 (21-32) mmol/L Anion Gap 8.0 (3-11) BUN 26 H (7-18) mg/dl Creatinine 1.40 H (0.6-1.2) mg/dl Est Cr Clr Drug Dosing 32.4 ml/min Est GFR ( Amer) 44.0 Est GFR (Non-Af Amer) 38.0 BUN/Creatinine Ratio 18.4 (10-20) Glucose 87 (70-99) mg/dl Calcium 8.9 (8.5-10.1) mg/dl Magnesium 2.1 (1.8-2.4) mg/dl Total Bilirubin 0.3 (0.2-1) mg/dl AST 25 (15-37) U/L ALT 20 (12-78) U/L Alkaline Phosphatase 79 (45-117) U/L Total Protein 5.6 L (6.4-8.2) gm/dl Albumin 2.5 L (3.4-5.0) gm/dl Globulin 3.1 (2.5-4.0) gm/dl Albumin/Globulin Ratio 0.8 L (0.9-2)
[2018-08-01] MEDS: cefTRIAXone SODIUM 1,000 MG in DEXTROSE 5% 50 ML IV SCH (15:59)
--- NOTE | 2018-08-01 16:21 | Cardiology Progress Note ---
Date of Service August 01, 2018 Assessment & Plan (1) New onset atrial fibrillation: Her heart rate was elevated on metoprolol succinate 200 mg daily, with the addition of diltiazem 120 mg daily the heart rate seems to be low. Since the beta-edwin did not seem to have much effect by itself I am going to reduce the dose tomorrow. She had some 3-second pauses today, but overall seems to be doing well and the rate is overall well controlled so I think we can just watch her rhythm overnight. Subjective She remains confused and I cannot obtain a meaningful history. She is comfortable and is eating when I evaluated her. Physical Exam Vital Signs (Past 24 Hours): Last Vital Signs Temp 36.5 C 08/01/18 15:53 Pulse 88 08/01/18 15:53 Resp 20 08/01/18 15:53 BP 140/87 08/01/18 15:53 Pulse Ox 90 08/01/18 15:53 Physical Exam: Constitutional: Alert, cooperative and in no distress. Pulmonary: Clear to auscultation bilaterally. Cardiac: Irregular rhythm with no murmur, gallop or rub. Abdomen: Soft, nontender with normal bowel sounds. Extremities: No edema. Skin: No rash, ecchymoses or petechiae. Results & Data Diagnostic Findings Telemetry: On telemetry monitoring she remains in atrial fibrillation, the rate is much better overall but is actually a little bit slow during the day today. She did have pauses in excess of 3 seconds.
[2018-08-01] MEDS: LORazepam 2 MG TAB PO SCH (18:21)
[2018-08-01] MEDS: QUETIAPINE FUMARATE 25 MG TABLET PO SCH (20:28)
--- NOTE | 2018-08-01 21:44 | Magnetic Resonance Report ---
MR brain wo con CLINICAL HISTORY: 72 years-old Female presenting with Altered mental status, , EtOH abuse, confused r ule out CVA. TECHNIQUE: Multisequence, multiplanar MR imaging of the brain was performed without the use of intrav enous contrast. IV contrast: None. COMPARISON: None. FINDINGS: Localizer images: Unremarkable. Proportional ventricular and sulcal prominence, likely advanced beyond the expected age-related paren chymal volume loss. Periventricular and subcortical white matter T2/FLAIR hyperintensity, nonspecific but likely indicative of chronic small vessel ischemic change. Postcontrast imaging was not performe d. No mass effect or midline shift. No restricted diffusion to suggest acute ischemia. No hemorrhage. No extra-axial fluid collection. T2 skull base flow voids preserved. Bone marrow signal intensity within the calvarium within normal l imits. IMPRESSION: 1. Diffuse atrophy advanced beyond expected age-related parenchymal volume loss may relate to the hi story of chronic ethanol exposure. Chronic small vessel ischemic change. No acute intracranial abnorm ality. Electronically signed by: Inocente Patton M.D. 08/01/2018 9:43 PM
[2018-08-02 07:45] LABS: Hematocrit (blood only) 30.5 % (37-47); Mean Corpuscular Hgb Conc 32.8 g/dL (32-36); Mean Corpuscular Volume 95.3 fL (80-100); Mean Platelet Volume 9.7 fL (7.4-10.4); Platelet Count 337 K/uL (130-400); RDW Coefficient of Variation 13.7 % (11.5-14.5); RDW Standard Deviation 47.3 fL (36.4-46.3); White Blood Count 6.36 K/uL (4.8-10.8)
[2018-08-02 08:16] LABS: BUN Creatinine Ratio 18.4 (10-20); Calcium 9.2 mg/dl (8.5-10.1); Creatinine Clr Calc Pharmacy 35.8 ml/min; Est GFR (African American) 49.5; Est GFR (Non-African American) 42.7; Potassium 3.6 mmol/L (3.5-5.1)
[2018-08-02] MEDS: AMLODIPINE BESYLATE 5 MG TAB PO SCH (08:50)
[2018-08-02] MEDS: dilTIAZem HCL 120 MG CAPCR PO SCH (08:50)
[2018-08-02] MEDS: FOLIC ACID 1 MG TAB PO SCH (08:50)
[2018-08-02] MEDS: METOPROLOL SUCC 50MG EXT REL TAB PO SCH (08:50)
[2018-08-02] MEDS: MAGNESIUM OXIDE 400 MG TAB PO SCH ×2 (08:50→20:07)
[2018-08-02] MEDS: APIXABAN 5 MG TABLET PO SCH ×2 (08:50→20:07)
[2018-08-02] MEDS: PHENobarbital 32.4 MG TAB PO SCH ×2 (08:52→20:07)
[2018-08-02] MEDS: THIAMINE HCL 250 MG in SODIUM CHLORIDE 0.9% 50 ML IV SCH (08:52)
--- NOTE | 2018-08-02 11:25 | Psychiatric Consultation ---
Date of Consultation August 02, 2018 Impression / Recommendations Impression Patient admitted with a fall at home, found to be in A. fib, with electrolyte disarray, and confusion. Quickly went into alcohol/benzodiazepine withdrawal (UDS also positive for alprazolam, with an extremely high level), and progressed to delirium tremens. She began displaying withdrawal symptoms about about 1 week ago, and likely has withdrawal delirium from both the alcohol and benzodiazepines, which is long and complicated given her advanced age, withdrawal from multiple substances, and presents of multiple medical comorbidities, which are also contributing to delirium and altered mental status. Additionally, she has been getting multiple medications which can contribute to delirium, including lorazepam, chlordiazepoxide, and phenobarbital. I am not clear what the phenobarbital is being used for, but would consider discontinuing it if there is not a clear treatment goal, and checking a level if it is continued to ensure it is not contributing to toxicity. There is no evidence of a primary mental health condition contributing to her delirium. While she may have underlying anxiety or depression, that cannot be assessed until her delirium is resolved and she can give a coherent history. Substance induced depression would also be on the differential. Primary treatment recommendation is for inpatient substance abuse treatment once she has stabilized medically, with outpatient psychiatric follow- up if deemed necessary while in inpatient treatment. Would recommend avoiding deliriogenic medications, including benzodiazepines, anticholinergics, anti- histaminergics, and other centrally acting medications. If quetiapine has not been beneficial, would recommend discontinuing it given her cardiac risk. Thank you for the consult, and please contact us if we can be of further assistance. Psych History Identifying Data 72-year-old female from [place] who has a history of alcohol dependence, atrial fibrillation, and hypertension who was admitted 07/24/2018 after she presented to the ER with a fall. Psychiatry is consulted to evaluate altered mental status. Chief Complaint Patient talking nonsensically. History of Present Illness Patient presented after a fall at home, was a poor historian on admission, but reported that she fell when she was trying to lift a table up a flight of steps and tripped on the carpet, landing on her bottom. She wears a life alert which was triggered and EMS responded. She denied loss of consciousness. On admission, she was hypokalemic, hyponatremic and in atrial fibrillation, said she was not taking prescribed metoprolol, and cardiology was consulted. She has a history of falls and syncopal episodes that were thought to be related to her drinking, and her son reported to staff on admission that the family has been trying to stage an intervention due to her increasing alcohol abuse. He said her drinking has worsened since her in 2014. He says she has no psychiatric history, but thinks she has struggled with anxiety and depressive symptoms. They do not feel she is safe to go home alone, and would like her to go to rehab for her alcoholism upon discharge from the hospital. They said at baseline she is alert and oriented, but makes poor decisions regarding her health, and they were concerned for her safety living at home alone. The patient told the admitting clinician she has tried to cut back on her drinking as she was told this is likely contributing to her problems, but would not go into great details about her drinking. She initially reported drinking two "good sized" glasses of vodka with mixers daily, but family reports she has been drinking to blackout daily for the past several months. Cardiology has been following her and adjusting her medications for atrial fibrillation, and she began to exhibit symptoms of alcohol withdrawal 07/25/2018 (2 days after her last drink), and was placed on AWSS protocol with folate, thiamine, gabapentin taper and lorazepam as needed. By the following day, she developed delirium tremens, and on 07/27/2018 she was started on scheduled chlordiazepoxide with continued as needed lorazepam, and quetiapine 12.5 mg at bedtime was added for behavior. She completed the gabapentin taper, but continued to receive chlordiazepoxide 75 mg daily and as needed Ativan, receiving up to 10 mg a day. On 07/30/2018, chlordiazepoxide was discontinued and she was started on pheno barbital 30 mg twice daily for "ongoing confusion," and quetiapine was increased to 25 mg daily. She received 2 mg of lorazepam yesterday, and none so far today. Her most recent AWSS assessments indicates she is scoring on agitation, distractibility, orientation, and hallucinations (although staff note they are uncertain if she is experiencing hallucinations), while the somatic subscale has not been triggering. The psychiatric liaison nurse attempted to assess her last evening, and this physician attempted to assess her today, and neither of us were able to get any meaningful information from her. The one-to-one staff sitting with her stated she did not sleep overnight, and although she talks and speech is intelligible, she does not make any sense. She will try to pickling solution maker the phone and make phone calls but is unable to, and has a baby doll at the bedside and was acting as if she was going to smoke the baby doll like it was a cigarette. Per case management notes, the patient's son is her POA, and they are pursuing referrals to physical rehab centers for her to regain her strength, with a hope that she will then attend inpatient substance abuse treatment. Nursing notes indicate that she is completely disoriented, has stated she is in [place], and is alert only to herself. Past Psychiatric History Previous Psych History: None. Per records, PCP was prescribing alprazolam, which has been discontinued here and will not be continued on discharge. Current Psychiatric Diagnosis: None Outpatient Services: None Previous Psych Admissions: None History of Previous Suicide Attempt: No Past Medication Trials: Xanax Allergies Allergy/AdvReac Type Severity Reaction Status Date / Time Penicillins Allergy Unknown CAN'T Verified 07/24/18 14:09 REMEMBER [facility] Allergy Unknown CAN'T Uncoded 07/24/18 14:09 REMEMBER-SEE COMMENT Home Medications Home Medications Medication Instructions Recorded Confirmed Type alprazolam [Xanax] 1 mg PO BID 07/24/18 07/24/18 History amlodipine 2.5 mg PO DAILY 07/24/18 07/24/18 History metoprolol succinate 25 mg PO DAILY 07/24/18 07/24/18 History trazodone 50 mg PO DAILY 07/24/18 07/24/18 History Family History Unknown, and patient unable to provide information. Substance Abuse History Long history of alcohol dependence per patient and family, with a history of inpatient rehab many years ago. Has been drinking daily, and use increased over the past 5 months or so, per family drinking until she blacks out. During her last hospitalization here in March 2018, she reported drinking a handle (1.75 L) of vodka daily. History of alcohol withdrawal. Personal History Living Arrangements: Home Living Arrangements Comments: Alone in [place] Employment Status: Retired Marital Status: Beliefs That Will Affect Care: None Patient History Medical History Hx of falling Depression Insomnia Tobacco abuse Chronic alcohol abuse H/O: hysterectomy Pneumonia (Resolved) Hypertension (Chronic) Social History Communication Ability: Effective Beliefs That Will Affect Care: None marital status: / Current Living Situation: Alone Other Information That Helps Us Care for You: No Feels Safe at Home: Yes Safety Concerns: Feels Safe At This Time Smoking Status: Current every day smoker Hx Alcohol Use: Yes Hx Substance Use: No Physical Exam Mental Examination Ill-appearing white female, dressed in a hospital gown, numerous bruises visible on upper extremities. Sleeping in no acute distress. Able to arouse, but unable to participate meaningfully in interview. Cannot answer direct questions, replies with unrelated information, difficult to follow at times. Vital Signs (Past 24 Hours) Last Vital Signs Temp 36.6 C 08/02/18 07:18 Pulse 71 08/02/18 07:18 Resp 20 08/02/18 07:18 BP 139/90 08/02/18 07:18 Pulse Ox 90 08/02/18 07:18 Review of Systems Unobtainable due to reduced consciousness Results & Data Medications Administered Amlodipine Besylate (Norvasc) 2.5 mg PO DAILY [facility] Stop: 08/29/18 08:59 Last Admin: 08/02/18 08:50 Dose: 2.5 mg Documented by: [id number] Admin: 08/01/18 09:05 Dose: 2.5 mg Documented by: [id number] Admin: 07/31/18 08:19 Dose: 2.5 mg Documented by: [id number] Admin: 07/30/18 08:32 Dose: 2.5 mg Documented by: [id number] Apixaban (Eliquis) 5 mg PO BID [facility] Stop: 08/24/18 20:59 Last Admin: 08/02/18 08:50 Dose: 5 mg Documented by: [id number] Admin: 08/01/18 20:28 Dose: 5 mg Documented by: [id number] Admin: 08/01/18 09:07 Dose: 5 mg Documented by: [id number] Admin: 07/31/18 19:40 Dose: 5 mg Documented by: [id number] Admin: 07/31/18 08:21 Dose: 5 mg Documented by: [id number] Admin: 07/30/18 20:55 Dose: 5 mg Documented by: [id number] Admin: 07/30/18 08:32 Dose: 5 mg Documented by: [id number] Admin: 07/29/18 21:51 Dose: Not Given Documented by: [id number] Admin: 07/29/18 08:27 Dose: 5 mg Documented by: [id number] Admin: 07/28/18 21:12 Dose: 5 mg Documented by: [id number] Admin: 07/28/18 08:00 Dose: 5 mg Documented by: [id number] Admin: 07/27/18 20:08 Dose: 5 mg Documented by: [id number] Admin: 07/27/18 10:30 Dose: 5 mg Documented by: [id number] Admin: 07/26/18 20:15 Dose: 5 mg Documented by: [id number] Admin: 07/26/18 07:40 Dose: 5 mg Documented by: [id number] Admin: 07/25/18 19:38 Dose: 5 mg Documented by: [id number] Diltiazem HCl (Card[facility]em Cd) [facility] [place] Stop: 08/31/18 08:59 Last Admin: 08/02/18 08:50 Dose: 120 mg Documented by: [id number] Admin: 08/01/18 09:06 Dose: 120 mg Documented by: [id number] Folic Acid (Folvite) 1 [facility] [place] Stop: 08/24/18 08:59 Last Admin: 08/02/18 08:50 Dose: 1 mg Documented by: [id number] Admin: 08/01/18 09:06 Dose: 1 mg Documented by: [id number] Admin: 07/31/18 08:20 Dose: 1 mg Documented by: [id number] Admin: 07/30/18 08:31 Dose: 1 mg Documented by: [id number] Admin: 07/29/18 08:31 Dose: 1 mg Documented by: [id number] Admin: 07/28/18 08:00 Dose: 1 mg Documented by: [id number] Admin: 07/27/18 10:31 Dose: 1 mg Documented by: [id number] Admin: 07/26/18 07:41 Dose: 1 mg Documented by: [id number] Admin: 07/25/18 07:31 Dose: 1 mg Documented by: [id number] Lorazepam (Ativan) 1 mg in 2 mls @ 2 mls/min IV UD PRN; Protocol PRN Reason: EtOH Withdrawl AWSS Score 6,7 Stop: 08/24/18 18:05 Last Admin: 07/29/18 12:18 Dose: 2 mls/min Documented by: [id number] Admin: 07/27/18 20:08 Dose: 2 mls/min Documented by: [id number] Admin: 07/25/18 23:17 Dose: 2 mls/min Documented by: [id number] Lorazepam (Ativan) 3 mg in 6 mls @ 4 mls/min IV ONCE PRN; Protocol PRN Reason: EtOH Withdrawl AWSS Score >=10 Stop: 08/24/18 18:05 Last Admin: 07/27/18 15:38 Dose: 4 mls/min Documented by: [id number] Admin: 07/27/18 06:53 Dose: 4 mls/min Documented by: [id number] Admin: 07/26/18 22:07 Dose: 4 mls/min Documented by: [id number] Admin: 07/26/18 21:20 Dose: 4 mls/min Documented by: [id number] Admin: 07/26/18 20:15 Dose: 4 mls/min Documented by: [id number] Admin: 07/25/18 22:34 Dose: 4 mls/min Documented by: [id number] Admin: 07/25/18 21:37 Dose: 6 mls/min Documented by: [id number] Lorazepam (Ativan) 2 mg in 4 mls @ 4 mls/min IV UD PRN; Protocol PRN Reason: EtOH Withdrawl AWSS Score 8,9 Stop: 08/24/18 18:05 Last Admin: 07/31/18 09:05 Dose: 4 mls/min Documented by: [id number] Admin: 07/30/18 11:06 Dose: 4 mls/min Documented by: [id number] Admin: 07/29/18 12:18 Dose: 4 mls/min Documented by: [id number] Admin: 07/29/18 09:43 Dose: 4 mls/min Documented by: [id number] Admin: 07/27/18 12:21 Dose: 4 mls/min Documented by: [id number] Admin: 07/27/18 04:51 Dose: 4 mls/min Documented by: [id number] Admin: 07/26/18 15:31 Dose: 4 mls/min Documented by: [id number] Admin: 07/26/18 11:47 Dose: 4 mls/min Documented by: [id number] Admin: 07/26/18 07:48 Dose: 4 mls/min Documented by: [id number] Admin: 07/25/18 19:39 Dose: 4 mls/min Documented by: [id number] Admin: 07/25/18 18:32 Dose: 4 mls/min Documented by: [id number] Thiamine HCl 250 mg/ Sodium (Chloride) 52.5 mls @ 208 mls/hr IV QAM [facility] Stop: 08/05/18 08:59 Last Infusion: 08/02/18 09:20 Dose: 0 mls/hr Documented by: [id number] Admin: 08/02/18 08:52 Dose: 208 mls/hr Documented by: [id number] Infusion: 08/01/18 11:05 Dose: 0 mls/hr Documented by: [id number] Admin: 08/01/18 10:39 Dose: 208 mls/hr Documented by: [id number] Infusion: 07/31/18 13:44 Dose: 0 mls/hr Documented by: [id number] Admin: 07/31/18 13:24 Dose: 208 mls/hr Documented by: [id number] Ceftriaxone Sodium 1,000 mg/ (Dextrose) 50 mls @ 100 mls/hr IV Q24H [facility]; Protocol Stop: 08/02/18 15:59 Last Infusion: 08/01/18 16:29 Dose: 0 mls/hr Documented by: [id number] Admin: 08/01/18 15:59 Dose: 100 mls/hr Documented by: [id number] Infusion: 07/31/18 16:30 Dose: 0 mls/hr Documented by: [id number] Admin: 07/31/18 16:00 Dose: 100 mls/hr Documented by: [id number] Infusion: 07/30/18 17:50 Dose: 0 mls/hr Documented by: [id number] Admin: 07/30/18 17:14 Dose: 100 mls/hr Documented by: [id number] Infusion: 07/29/18 17:37 Dose: 0 mls/hr Documented by: [id number] Admin: 07/29/18 17:04 Dose: 100 mls/hr Documented by: [id number] Lorazepam (Ativan) 2 mg PO ONCE [facility] Stop: 08/31/18 14:29 Last Admin: 08/01/18 18:21 Dose: 2 mg Documented by: [id number] Magnesium Oxide (Mag-Ox) 400 mg PO BID [facility] Stop: 08/23/18 20:59 Last Admin: 08/02/18 08:50 Dose: 400 mg Documented by: [id number] Admin: 08/01/18 20:29 Dose: 400 mg Documented by: [id number] Admin: 08/01/18 09:06 Dose: 400 mg Documented by: [id number] Admin: 07/31/18 19:41 Dose: 400 mg Documented by: [id number] Admin: 07/31/18 08:20 Dose: 400 mg Documented by: [id number] Admin: 07/30/18 20:55 Dose: 400 mg Documented by: [id number] Admin: 07/30/18 08:32 Dose: 400 mg Documented by: [id number] Admin: 07/29/18 21:51 Dose: Not Given Documented by: [id number] Admin: 07/29/18 08:27 Dose: 400 mg Documented by: [id number] Admin: 07/28/18 21:12 Dose: 400 mg Documented by: [id number] Admin: 07/28/18 07:59 Dose: 400 mg Documented by: [id number] Admin: 07/27/18 20:09 Dose: 400 mg Documented by: [id number] Admin: 07/27/18 10:30 Dose: 400 mg Documented by: [id number] Admin: 07/26/18 20:15 Dose: 400 mg Documented by: [id number] Admin: 07/26/18 07:40 Dose: 400 mg Documented by: [id number] Admin: 07/25/18 18:32 Dose: 400 mg Documented by: [id number] Admin: 07/25/18 07:30 Dose: 400 mg Documented by: [id number] Admin: 07/24/18 20:05 Dose: 400 mg Documented by: [id number] Metoprolol Succinate (Toprol Xl) 100 mg PO QAM [facility] Stop: 09/01/18 08:59 Last Admin: 08/02/18 08:50 Dose: 100 mg Documented by: [id number] Metoprolol Tartrate (Lopressor) 5 mg IV Q4 PRN PRN Reason: tachycardia > 120 Stop: 08/25/18 19:59 Last Admin: 07/29/18 12:18 Dose: 5 mg Documented by: [id number] Admin: 07/28/18 15:13 Dose: 5 mg Documented by: [id number] Admin: 07/28/18 11:36 Dose: 5 mg Documented by: [id number] Admin: 07/27/18 12:16 Dose: 5 mg Documented by: [id number] Admin: 07/26/18 23:03 Dose: 5 mg Documented by: [id number] Admin: 07/26/18 19:02 Dose: 5 mg Documented by: [id number] Phenobarbital (Phenobarbital) 32.4 mg PO BID [facility] Stop: 08/29/18 20:59 Last Admin: 08/02/18 08:52 Dose: 32.4 mg Documented by: [id number] Admin: 08/01/18 20:30 Dose: 32.4 mg Documented by: [id number] Admin: 08/01/18 09:17 Dose: 32.4 mg Documented by: [id number] Admin: 07/31/18 19:45 Dose: 32.4 mg Documented by: [id number] Admin: 07/31/18 08:19 Dose: 32.4 mg Documented by: [id number] Admin: 07/30/18 20:55 Dose: 32.4 mg Documented by: [id number] Quetiapine Fumarate (Seroquel) 25 mg PO HS [facility] Stop: 08/28/18 20:59 Last Admin: 08/01/18 20:28 Dose: 25 mg Documented by: [id number] Admin: 07/31/18 19:40 Dose: 25 mg Documented by: [id number] Admin: 07/30/18 20:55 Dose: 25 mg Documented by: [id number] Admin: 07/29/18 21:51 Dose: Not Given Documented by: [id number]
--- NOTE | 2018-08-02 11:25 | Cardiology Progress Note ---
Date of Service August 02, 2018 Assessment & Plan (1) New onset atrial fibrillation: Her heart rate was elevated on metoprolol succinate 200 mg daily, with the addition of diltiazem 120 mg daily the heart rate seems to be low. Now with reducing her metoprolol succinate to 100 mg daily she has not had any significant bradycardia and I think her heart rate is adequately controlled although she has some periods of somewhat higher heart rate. I would like to watch her on this regimen for now. Subjective She remains relatively uncommunicative and does not make sense, she does answer questions and she appears comfortable. Physical Exam Vital Signs (Past 24 Hours): Last Vital Signs Temp 36.8 C 08/02/18 11:10 Pulse 75 08/02/18 11:10 Resp 19 08/02/18 11:10 BP 126/86 08/02/18 11:10 Pulse Ox 95 08/02/18 11:10 Physical Exam: Constitutional: Alert, cooperative and in no distress. Pulmonary: Clear to auscultation bilaterally. Cardiac: Irregular rhythm with no murmur, gallop or rub. Abdomen: Soft, nontender with normal bowel sounds. Extremities: No edema. Skin: No rash, ecchymoses or petechiae. Results & Data Diagnostic Findings Telemetry: Atrial fibrillation, rate is better. She does have a somewhat elevated heart rate at times but not too high and she has not had any more significant bradycardia.
--- NOTE | 2018-08-02 12:32 | Hospitalist Progress Note ---
Date of Service August 02, 2018 Assessment & Plan (1) Atrial fibrillation: - Remains in A. fib, rate controlled; episode of non sustained V. tach overnight. - Likely related to ETOH abuse, electrolyte abnormalities & dehydration. - Echo in Mar 2018 showed EF 65-70%, grade I diastolic dysfunction. - Cardiology following, appreciate input. - Continue Cardizem 120 mg qAM; decrease Metoprolol to 100 mg qAM. - Continue Eliquis 5 mg BID. - Had 3 second pause on 08/01; titrating down cardiac meds in setting of bradycardia. (2) Metabolic encephalopathy: - Etiology of confusion is unclear -- DTs vs. hospital delirium with underlying dementia vs. psych diagnosis vs. ETOH induced atrophy. - Pt remains confused, requiring one to one supervision; no improvement with treatment of DTs (last drink on 07/23) - Received high dose Thiamine for treatment of Wernicke's encephalopathy; continue Thiamine 250 mg qAM. - Ammonia level was WNL. - UC positive; IV abx as noted below. - Brain MRI showed diffuse atrophy beyond expected age related volume loss, likely related to chronic ETOH exposure. - Consulted psych for evaluation -- son denies h/o psychiatric issues but pt. has not had any improvement with treatment of DTs. (3) Alcohol abuse: - Delirium tremens noted during this admission with tachyardia/hallucinations; has ongoing confusion, is not likely related to DTs at this point. - Reported drinking 2 glasses of mixed drinks with vodka per day; family states she drinks significantly more to point of blacking out. - Has been treated at ETOH rehab in past as teenager; substance abuse may be related to passing away with mix of anxiety/depression. - AWSS protocol; Ativan prn. - Continue Phenobarbital 30 mg BID. - Continue Thiamine and Folic acid. - Seroquel 25 mg qhs in setting of insomnia/sundowning. - Will benefit from ETOH rehab and therapy services following discharge from rehab -- discussed with her son. - Holding home Xanax; her PCP is no longer prescribing benzos, will need to taper off medication in future. - MRI brain showed atrophy likely related to chronic ETOH abuse. (4) Acute respiratory failure with hypoxia: - Was requiring 4L, now weaned to room air. - Likely related to pulm vascular congestion -- holding IV fluids. - No diuretics indicated at this time, will monitor. (5) JESS (acute kidney injury): - Creatinine at baseline. - Monitor renal function daily. (6) CKD (chronic kidney disease) stage 3, GFR 30-59 ml/min: - Renally dose all meds. (7) UTI (urinary tract infection): - UC positive for Klebsiella oxytoca, Citrobacter freundii. - On Ceftriaxone IV per sensitivities (Day 5 of 5) (8) Chronic diastolic heart failure: - Echo in Mar 2018 showed grade I DD, EF 65-70%. - Continue beta edwin. - Monitor net I/O's and daily weights. - Will need educated on monitoring weights and intake at home in setting of heavy ETOH abuse. (9) Hypertension: - Continue Metoprolol, Amlodipine and Cardizem. (10) Electrolyte abnormality: - No replacement required. (11) Weakness: - Likely multi-factorial between chronic ETOH abuse vs poor nutrient intake vs A. fib. - PT/OT - plan for discharge to rehab when medically stable. At this point, patient cannot tolerate an acute rehab setting -- may be candidate for SNF/jail placement. (12) DVT prophylaxis: - Eliquis BID. Disposition: Discharge to rehab pending ETOH detox completion/improvement in encephalopathy; recommend ETOH rehab following SNF placement. Psych consulted. Supervising Physician Co-Signing Physician Notes Attending Attestation- Chart reviewed, care plan d/w SHANA Castellano in detail. MRI brain with considerable atrophy. 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 Uncertain if what we are seeing is delirium in setting of dementia process vs Wernicke's encephalopathy vs tail end of DTs (less likely at this point) vs other. Finish abx for UTI. Cont supportive care. Wean phenobarbital off. Zeke Pack MD Subjective Pt. remains confused today, is agitated at times. Continues to require one to one supervision. Brain MRI showed diffuse atrophy advanced beyond expected age related volume loss -- changes are likely related to chronic ETOH abuse. Psych consult is pending. Pt. has not shown significant improvement in mental status, may be at her baseline. At this point, she cannot tolerate an acute rehab setting and would be more appropriate for SNF placement. Review of Systems Unobtainable due to cognitive status Physical Exam Vital Signs (Past 24 Hours): Last Vital Signs Temp 36.8 C 03/14/19 11:10 Pulse 75 08/02/18 11:10 Resp 19 08/02/18 11:10 BP 126/86 08/02/18 11:10 Pulse Ox 95 08/02/18 11:10 Physical Exam: General: Lying in bed, in no acute distress. HEENT: NC/AT; PERRLA with EOMI; Zihlman conjunctiva, MMM. Neck: Supple and nontender Cardiac: irregular Lungs: CTA bilaterally Abdomen: Bowel normoactive X 4; Nontender to palpation Extremities: Warm. No edema present Neuro: Remains confused, agitated. Does not answer questions appropriately. Skin: No rash Results & Data Laboratory Results 08/02/18 08/02/18 Range/Units 07:05 07:05 WBC 6.36 (4.8-10.8) K/uL RBC 3.20 L (4.2-5.4) M/uL Hgb 10.0 L (12.0-16.0) g/dL Hct 30.5 L (37-47) % MCV 95.3 (80-100) fL MCH 31.3 (25-34) pg MCHC 32.8 (32-36) g/dL RDW Std Deviation 47.3 H (36.4-46.3) fL RDW Coeff of Mario 13.7 (11.5-14.5) % Plt Count 337 (130-400) K/uL MPV 9.7 (7.4-10.4) fL Sodium 145 (136-145) mmol/L Potassium 3.6 (3.5-5.1) mmol/L Chloride 109 H (98-107) mmol/L Carbon Dioxide 28 (21-32) mmol/L Anion Gap 8.0 (3-11) BUN 23 H (7-18) mg/dl Creatinine 1.27 H (0.6-1.2) mg/dl Est Cr Clr Drug Dosing 35.8 ml/min Est GFR ( Amer) 49.5 Est GFR (Non-Af Amer) 42.7 BUN/Creatinine Ratio 18.4 (10-20) Glucose 98 (70-99) mg/dl Calcium 9.2 (8.5-10.1) mg/dl
[2018-08-02] MEDS: LORazepam 2 MG TAB PO SCH (17:57)
[2018-08-02] MEDS: QUETIAPINE FUMARATE 25 MG TABLET PO SCH (20:07)
[2018-08-03] MEDS: APIXABAN 5 MG TABLET PO SCH ×2 (08:54→21:12)
[2018-08-03] MEDS: dilTIAZem HCL 120 MG CAPCR PO SCH (08:54)
[2018-08-03] MEDS: FOLIC ACID 1 MG TAB PO SCH (08:55)
[2018-08-03] MEDS: AMLODIPINE BESYLATE 5 MG TAB PO SCH (08:55)
[2018-08-03] MEDS: MAGNESIUM OXIDE 400 MG TAB PO SCH ×2 (08:55→21:12)
[2018-08-03] MEDS: METOPROLOL SUCC 50MG EXT REL TAB PO SCH (08:56)
[2018-08-03] MEDS: PHENobarbital 15 MG TAB PO SCH ×2 (09:01→21:18)
[2018-08-03] MEDS: THIAMINE HCL 250 MG in SODIUM CHLORIDE 0.9% 50 ML IV SCH (09:01)
--- NOTE | 2018-08-03 17:44 | Hospitalist Progress Note ---
Date of Service August 03, 2018 Assessment & Plan (1) Atrial fibrillation: - Remains in A. fib, rate controlled; has intermittent episodes of non sustained V. tach. - Echo in Mar 2018 showed EF 65-70%, grade I diastolic dysfunction. - Cardiology following, appreciate input. - Continue Cardizem 120 mg qAM; decreased Metoprolol to 100 mg qAM. - Continue Eliquis 5 mg BID. - Titrated down cardiac meds in setting of bradycardia. (2) Metabolic encephalopathy: - Etiology of confusion is unclear -- hospital delirium vs. ETOH induced atrophy vs. Wernicke's; likely not related to DT's at this point. - Requires one to one supervision; no improvement with treatment of DTs (last drink on 07/23) - Received high dose Thiamine for treatment of Wernicke's encephalopathy; continue Thiamine 250 mg qAM. - Brain MRI showed diffuse atrophy beyond expected age related volume loss, likely related to chronic ETOH exposure. - Consulted psych for evaluation, likely not related to underlying psych diagnosis. - RPR, Lyme titer, B1 and B12 levels pending. - Neuro consulted for recs. (3) Alcohol abuse: - Delirium tremens noted during this admission with tachyardia/hallucinations. - Reported drinking 2 glasses of mixed drinks with vodka per day; family states she drinks significantly more to point of blacking out. - Has been treated at ETOH rehab in past as teenager; substance abuse may be related to passing away with mix of anxiety/depression. - AWSS protocol completed, d/c Ativan. - Begin to taper Phenobarbital -- decrease to 15 mg BID. - Continue Thiamine and Folic acid. - Begin to taper Seroquel, 12.5 mg qhs (no improvement with med) - Will benefit from ETOH rehab and therapy services following discharge from rehab. - MRI brain showed atrophy likely related to chronic ETOH abuse. (4) Acute respiratory failure with hypoxia: - Was requiring 4L, now weaned to room air. - Likely related to pulm vascular congestion. (5) JESS (acute kidney injury): - Creatinine at baseline. - Monitor renal function daily. (6) CKD (chronic kidney disease) stage 3, GFR 30-59 ml/min: - Renally dose all meds. (7) UTI (urinary tract infection): - UC positive for Klebsiella oxytoca, Citrobacter freundii. - Completed course of Ceftriaxone. (8) Chronic diastolic heart failure: - Echo in Mar 2018 showed grade I DD, EF 65-70%. - Continue beta edwin. - Monitor net I/O's and daily weights. (9) Hypertension: - Continue Metoprolol, Amlodipine and Cardizem. (10) Electrolyte abnormality: - No replacement required. (11) Weakness: - Likely multi-factorial between chronic ETOH abuse vs poor nutrient intake vs A. fib. - PT/OT - plan for discharge to rehab when medically stable. At this point, patient cannot tolerate an acute rehab setting -- may be candidate for SNF/emt intermediate placement. (12) DVT prophylaxis: - Eliquis BID. Disposition: Discharge to rehab pending ETOH detox completion/improvement in encephalopathy; recommend ETOH rehab following SNF placement. Supervising Physician Co-Signing Physician Notes PA Supervision Note: I did not personally see or examine the patient today, but I verified all lucio points of SHANA Cerrato's assessment and plan with the following exceptions/additions: None Plan to consult Neuro for further evaluation of delirium. Check RPR, Lyme, B1, B12 Subjective Pt. remains confused, is not alert to person or place. Requires one to one supervision. No improvement over last few days. Review of Systems Unobtainable due to cognitive status Physical Exam Vital Signs (Past 24 Hours): Last Vital Signs Temp 36.6 C 08/03/18 15:02 Pulse 82 08/03/18 15:02 Resp 20 08/03/18 15:02 BP 147/95 H 08/03/18 15:02 Pulse Ox 94 08/03/18 15:02 Physical Exam: General: Lying in bed, in no acute distress. HEENT: NC/AT; PERRLA with EOMI; [place] conjunctiva, MMM. Neck: Supple and nontender Cardiac: irregular Lungs: CTA bilaterally Abdomen: Bowel normoactive X 4; Nontender to palpation Extremities: Warm. No edema present Neuro: Remains confused, does not answer questions. Skin: No rash Results & Data Laboratory Results 08/03/18 Range/Units 08:24 Phenobarbital 8.3 L (15-40) mcg/mL
[2018-08-03] MEDS ORDERED: QUETIAPINE FUMARATE 25 MG TABLET PO SCH (21:00)
[2018-08-04 07:04] LABS: Hematocrit (blood only) 30.3 % (37-47); Mean Corpuscular Volume 95.6 fL (80-100); Mean Platelet Volume 9.6 fL (7.4-10.4); Platelet Count 338 K/uL (130-400); RDW Standard Deviation 48.4 fL (36.4-46.3); Red Blood Count 3.17 M/uL (4.2-5.4); White Blood Count 5.28 K/uL (4.8-10.8)
[2018-08-04 07:31] LABS: Calcium 8.6 mg/dl (8.5-10.1); Creatinine Clr Calc Pharmacy 42.3 ml/min; Est GFR (African American) 60.2; Magnesium 1.6 mg/dl (1.8-2.4); Potassium 3.2 mmol/L (3.5-5.1)
[2018-08-04] MEDS ORDERED: POTASSIUM CHLORIDE 20 MEQ TABCR PO STA (07:57)
--- NOTE | 2018-08-04 08:20 | Neurology Consultation ---
Date of Consultation August 04, 2018 Assessment & Plan (1) Metabolic encephalopathy: The patient has confusion and a thought disorder with significant paranoia and some mild flight of ideas. She is very calm showing no signs of agitation or withdrawal. I suspect some component of her mental status presentation is a dementia as well. On examination she has no focal neurologic signs or meningeal signs. There is no sign of infection. She is mostly calm and cooperative. MRI of the brain shows diffuse, significant generalized atrophy with moderate old white matter ischemic changes. 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 This could account for the atrophy. She has a history of hypertension which also could account for the small vessel ischemia. Together this could create a significant dementia. Superimposed on this is benzodiazepine and alcohol withdrawal associated with variable magnesium and sodium levels. Low potassium could affect her heart and muscles but would not have an affect on her brain. Anemia can lead to altered mental status states as well. Given both benzodiazepine and alcohol withdrawal issues with the underlying brain/dementia problem it may take another week or 2 for her to fully recover. (2) Alcohol abuse: Patient has considerable alcohol use and abuse chronically. She has just gone through alcohol withdrawal. (3) Atrial fibrillation: Patient has new onset, continuous atrial fibrillation with variable rate. She is followed by the Cardiology. Atrial fibrillation would put her at risk for emboli. Recommendations: 1. I am not certain why phenobarbital as needed anymore, and since it has a long half life, I would discontinue phenobarbital. 2. I am not convinced the Seroquel has done much for her either and this could be discontinued. 3. Increase activity as able including physical therapy. 4. I see no need for additional neurologic testing at this time , including an EEG (I do not suspect seizures). 5. Once she is medically stable and if she is still in atrial fibrillation, we would have to consider anticoagulation. She would be at increased bleeding risk however. 6. Continue nutrition and B vitamins Overall, spent a total of 85 minutes with this case including review of records, review of MRI films, direct evaluation the patient at bedside, and discussion of the case with the patient at bedside, clinical staff, and Ester Ruiz, including differential diagnosis and treatment options. History of Present Illness Reason for Consultation: Patient is a 72-year-old, who I was asked to see at the request of Dr. Maciel, for neurologic consultation regarding encephalopathy. Requesting Physician: Dr. Maciel Attending Physician: Carla Maciel MD History of Present Illness Patient has a history of hypertension depression anxiety alcohol use/abuse. She was admitted in March of 2018 with a fall and possible syncopal. She was noted to sustained atrial tachycardia. Her excessive alcohol use was noted there was discussion her to decrease this if she could not stop. Patient apparently did not cut back or alcohol usage. She drinks several glasses of vodka per day. She will go through a large bottle of each week. She was admitted July 24, 2018 after losing her balance with fall from dizziness. There is no loss of consciousness but she was noted to be somewhat confused weak in general. She was in atrial fibrillation and potassium was low. She was admitted and over the next day or 2 it was clear she was going into alcohol withdrawal with confusion and agitation. She was put on a detox protocol. Comp pounding the problem was her use Xanax milligram twice daily along with the alcohol. Her alprazolam level was quite high on admission. There was combined benzodiazepine and alcohol withdrawal syndrome going. Apparently, Librium was discontinued after a few days and phenobarbital was used instead. Seroquel was initiated which did not seem to help either. She has had issues with electrolytes throughout her hospital stay with fluctuating sodiums, potassium is comma and magnesium. These have been replaced. She remains very anemic with hemoglobin of 10. She remains in atrial fibrillation continuously with variable rate. On August 01, MRI of the brain showed significant generalized atrophy with moderate old small vessel ischemic disease diffusely in the white matter. I reviewed this film. She had a psychiatric consultation by Dr. Scott on August 02. She questioned the use of Seroquel and phenobarbital and because the patient was so disoriented/confused she did not have any other specific recommendations to make at that time. Over the last 48 hours, nursing and staff report that she has been variably confused. At time she will be more lucent but other times more confused. She can get caught up in stories about her whereabouts and yesterday was telling people that she had a baby recently. She has been much calmer since the beginning of the week with much less agitation. Today, the patient's blood pressure is 143/96 and she is in atrial fibrillation with a rate in the 70s. She is aroused with voice and gentle shaking and has no complaint of pain or headache. Laboratory studies this morning reveal sodium of 146, potassium of 3.2 and magnesium 1.6. Hemoglobin and hematocrit are 10.0 and 30.3. Allergies Allergy/AdvReac Type Severity Reaction Status Date / Time Penicillins Allergy Unknown CAN'T Verified 07/24/18 14:09 REMEMBER [facility] [employer] Allergy Unknown CAN'T Uncoded 07/24/18 14:09 REMEMBER-SEE COMMENT Home Medications Home Medications Medication Instructions Recorded Confirmed Type alprazolam [Xanax] 1 mg PO BID 07/24/18 07/24/18 History amlodipine 2.5 mg PO DAILY 07/24/18 07/24/18 History metoprolol succinate 25 mg PO DAILY 07/24/18 07/24/18 History trazodone 50 mg PO DAILY 07/24/18 07/24/18 History Patient History Medical History Hx of falling Depression Insomnia Tobacco abuse Chronic alcohol abuse H/O: hysterectomy Pneumonia (Resolved) Hypertension (Chronic) H/O: hysterectomy Family History Mother , age 70 of uncertain causes No problems noted. Father , The mid-60s of a rare bone cancer No problems noted. 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 Feels Safe at Home: Yes Safety Concerns: Feels Safe At This Time Smoking Status: Current every day smoker Hx Alcohol Use: Yes Hx Substance Use: No Review of Systems Constitutional: + fatigue; no fever, no body aches and no weakness Eyes: no diplopia, no eye pain and no worsening vision Ear, Nose, Mouth, Throat: no ear pain, no tinnitus, no hearing loss and no dysphagia Respiratory: + cough; no dyspnea Cardiovascular: no chest pain, no dyspnea and no palpitations Gastrointestinal: no abdominal pain, no nausea and no vomiting Genitourinary (Female): no dysuria, no urinary frequency and no urinary incontinence Musculoskeletal: no back pain, no neck pain, no radicular pain, no myalgia, no muscle weakness and no muscle atrophy Integumentary: no rash and no lesions Neurologic: + gait abnormality, + falls and + confusion; no localized weakness, no generalized weakness, no tingling, no numbness, no tremor(s), no abnormal movements, no dizziness, no headache(s), no abnormal speech, no behavioral changes and no memory loss Psychiatric: no depression, no abnormal sleep pattern, no anxiety, no difficulty concentrating, no confusion and no hallucinations Endocrine: + fatigue; no flushing Hematologic / Lymphatic: no easy bleeding and no easy bruising Allergy / Immunological: no urticaria Physical Exam Vital Signs (Past 24 Hours): Last Vital Signs Temp 36.1 C L 08/04/18 07:05 Pulse 86 08/04/18 07:05 Resp 20 08/04/18 07:05 BP 143/96 H 08/04/18 07:05 Pulse Ox 92 08/04/18 07:10 Physical Exam: The patient is right-handed. Although she was sleeping soundly she was aroused with voice and gentle shaking. The patient is awake, alert, and attentive. Speech is normal without any obvious aphasia or dysarthria. She is very calm and cooperative. She follows one-step commands well. She knew her name the fact that she was in a hospital, left from right, her age, and simple calculations. She did not know where she was specifically and thought it was May 1999. She would have moments of some lucid conversation regarding questions asked of her followed by immediate paranoid thought that the age sitting next to her or the nurse in the room was going to kill her and that I should leave her alone. I could always redirect her. She was not tearful or overly emotional and she was not overly flat in her affect either. Attention and concentration were variable, at times being quite focused and other times distracted by things going on in the room. At 1 point she tolerated telling me a story about how she and her were recently visiting in [place]. Apparently, her in 2014. The discs are sharp with positive venous pulsations bilaterally. There are no exudates, hemorrhages, or blood vessel changes seen. Pupils are 4 mm bilaterally and reactive to light. Extraocular eye muscles are intact without nystagmus. Visual acuity and visual cuello seem normal grossly to confrontation. There are no deficits to sensation in the face in all 3 distributions of the fifth cranial nerve bilaterally. Corneal reflexes are positive bilaterally. Facial strength and symmetry was normal bilaterally. Hearing seems intact grossly to voice and finger rub bilaterally. Palate moves well without asymmetry. There is normal sternocleidomastoid and trapezius (shoulder shrug) strength bilaterally. Tongue is midline with good strength bilaterally. Neck has a full range of motion without discomfort. There are no cervical bruits bilaterally. There are no cranial or ocular bruits. Heart is without murmur. There is a regular rhythm and rate. Cervical, thoracic, and lumbar spine are nontender to palpation. Gait was not tested but stance sitting up in bed is reasonable. With outstretched arms there is no drift. There are no resting, postural, or act ion tremors. There is no ataxia with finger to nose testing. There is good facility in the hands. No other abnormal involuntary movements are noted. Motor strength is 5/5 diffusely in the arms bilaterally including deltoids, biceps, triceps, brachioradialis, wrist flexors and extensors, signs and displays salesperson, and intrinsic hand muscles. Motor strength is 5/5 diffusely in the legs bilaterally including hip flexors, quadriceps, hamstrings, gastrocnemius, tibialis anterior, tibialis posterior, and Peroneii muscles bilaterally. Toe extensors are normal and there is good bulk in the extensor digitorum brevis muscles bilaterally. The limbs have good tone without rigidity or spasticity. There is no atrophy noted in the muscles. Muscle bulk is normal, there is no tenderness to palpation, no myotonia to percussion, and no fasciculations seen. Sensory examination is intact to touch and pin throughout all 4 limbs diffusely. Reflexes are 1/4 in the biceps, triceps, brachioradialis, quadriceps, and Achilles tendons bilaterally. Toes are downgoing with plantar stimulation bilaterally. Peripheral pulses are present and of normal quality distally in all 4 limbs. There is no peripheral edema noted in the limbs. Results & Data Diagnostic Findings MR brain wo con CLINICAL HISTORY: 72 years-old Female presenting with Altered mental status, , EtOH abuse, confused rule out CVA. TECHNIQUE: Multisequence, multiplanar MR imaging of the brain was performed without the use of intravenous contrast. IV contrast: None. COMPARISON: None. FINDINGS: Localizer images: Unremarkable. Proportional ventricular and sulcal prominence, likely advanced beyond the expected age-related parenchymal volume loss. Periventricular and subcortical white matter T2/FLAIR hyperintensity, nonspecific but likely indicative of chronic small vessel ischemic change. Postcontrast imaging was not performed. No mass effect or midline shift. No restricted diffusion to suggest acute ischemia. No hemorrhage. No extra-axial fluid collection. T2 skull base flow voids preserved. Bone marrow signal intensity within the calvarium within normal limits. IMPRESSION: 1. Diffuse atrophy advanced beyond expected age-related parenchymal volume loss may relate to the history of chronic ethanol exposure. Chronic small vessel ischemic change. No acute intracranial abnormality. Electronically signed by: Inocente Patton M.D. 08/01/2018 9:43 PM
[2018-08-04 08:54] LABS: Lyme Ab IgM w/WB Rflx Negative (Negative)
[2018-08-04 08:55] LABS: Lyme Ab IgG w/WB Rflx Negative (Negative)
[2018-08-04] MEDS: MAGNESIUM SULFATE / D5W 1 GM/100 ML BAG IV SCH ×2 (09:21→10:32)
[2018-08-04] MEDS: APIXABAN 5 MG TABLET PO SCH ×2 (09:22→20:28)
[2018-08-04] MEDS: FOLIC ACID 1 MG TAB PO SCH (09:22)
[2018-08-04] MEDS: dilTIAZem HCL 120 MG CAPCR PO SCH (09:22)
[2018-08-04] MEDS: AMLODIPINE BESYLATE 5 MG TAB PO SCH (09:23)
[2018-08-04] MEDS: MAGNESIUM OXIDE 400 MG TAB PO SCH ×2 (09:23→20:28)
[2018-08-04] MEDS: METOPROLOL SUCC 50MG EXT REL TAB PO SCH (09:24)
[2018-08-04] MEDS: THIAMINE HCL 100 MG TAB PO SCH (09:24)
--- NOTE | 2018-08-04 12:31 | Hospitalist Progress Note ---
Date of Service August 04, 2018 Assessment & Plan (1) Atrial fibrillation: - Remains in A. fib, rate controlled on monitor. - Echo in Mar 2018 showed EF 65-70%, grade I diastolic dysfunction. - Cardiology following, appreciate input. - Continue Cardizem 120 mg qAM & Metoprolol 100 mg qAM. - Continue Eliquis 5 mg BID. - Titrated down cardiac meds in setting of bradycardia. (2) Metabolic encephalopathy: - Likely related to hospital delirium vs. ETOH induced atrophy/dementia vs. Wernicke's -- very slight improvement in mental status overnight. - Requires one to one supervision - will need to discontinue one to one support prior to discharge to rehab. - Received high dose Thiamine for treatment of Wernicke's encephalopathy; continue Thiamine 100 mg qAM. - Brain MRI showed diffuse atrophy beyond expected age related volume loss, likely related to chronic ETOH exposure. - Consulted psych for evaluation, likely not related to underlying psych diagnosis. - Lyme titer negative; B12 level elevated; Vit B1 and RPR pending. - Neuro consulted, appreciate input. Will discontinue Seroquel/Phenobarbital and monitor for improvement in mental status. No need for further neurologic testing. (3) Alcohol abuse: - Delirium tremens noted during this admission with tachyardia/hallucinations; now resolved. - Reported drinking 2 glasses of mixed drinks with vodka per day; previous admissions state she drinks a fifth of vodka per day. - Has been treated at ETOH rehab in past as teenager; h/o prolonged substance abuse, both benzos and ETOH. - AWSS protocol completed; hold benzos. - Will d/c Phenobarbital and Seroquel. - Continue Thiamine and Folic acid. - Will benefit from ETOH rehab and therapy services following discharge from rehab. - MRI brain showed atrophy likely related to chronic ETOH abuse. (4) Acute respiratory failure with hypoxia: - Requires intermittent oxygen, 2-4L via NC. - Likely related to pulm vascular congestion. (5) JESS (acute kidney injury): - Creatinine at baseline. - Monitor renal function daily. (6) CKD (chronic kidney disease) stage 3, GFR 30-59 ml/min: - Renally dose all meds. (7) UTI (urinary tract infection): - UC positive for Klebsiella oxytoca, Citrobacter freundii. - Completed course of Ceftriaxone. (8) Chronic diastolic heart failure: - Echo in Mar 2018 showed grade I DD, EF 65-70%. - Continue beta edwin. - Monitor net I/O's and daily weights. (9) Hypertension: - Continue Metoprolol, Amlodipine and Cardizem. (10) Anemia: - Baseline hemoglobin was >13; now trending ~10-11. - Iron studies pending in the morning; B12 level was elevated, no recent folate levels. (11) Electrolyte abnormality: - K level 3.2 - ordered KCl 40 mEq PO. - Mag level 1.6 - ordered Mag sulfate 2 gm IV. - Monitor levels qAM. (12) Weakness: - Likely multi-factorial between chronic ETOH abuse vs poor nutrient intake vs A. fib. - PT/OT - plan for discharge to rehab when medically stable. At this point, patient cannot tolerate an acute rehab setting -- may be candidate for SNF placement. (13) DVT prophylaxis: - Eliquis BID. Disposition: Discharge to rehab pending improvement in encephalopathy; recommend ETOH rehab following SNF placement. Supervising Physician Co-Signing Physician Notes PA Supervision Note: I did not personally see or examine the patient today, but I verified all lucio points of SHANA Cerrato's assessment and plan with the following exceptions/additions: None Subjective Pt. is slightly improved today. She remains intermittently confused but is able to be re-oriented to surroundings. She does not know place -- states she is at home in [place], [place]. She expressed her concerns regarding contacting her son. Neurology was consulted this morning; pt. had periods of lucidity but had to be re-directed multiple times. Review of systems was not obtained due to mental status. Updated her son Nghia with plan of care via phone call this afternoon. Review of Systems Unobtainable due to cognitive status Physical Exam Vital Signs (Past 24 Hours): Last Vital Signs Temp 36.6 C 08/04/18 10:58 Pulse 76 08/04/18 10:58 Resp 18 08/04/18 10:58 BP 137/85 08/04/18 10:58 Pulse Ox 98 08/04/18 10:58 Physical Exam: General: Lying in bed, in no acute distress. HEENT: NC/AT; PERRLA with EOMI; [place] conjunctiva, MMM. Neck: Supple and nontender Cardiac: irregular Lungs: CTA bilaterally Abdomen: Bowel normoactive X 4; Nontender to palpation Extremities: Warm. No edema present Neuro: Remains confused but does answer some questions appropriately after being re-directed. Skin: No rash Results & Data Laboratory Results 08/04/18 08/04/18 08/04/18 Range/Units 06:21 06:21 06:21 WBC (4.8-10.8) K/uL RBC (4.2-5.4) M/uL Hgb (12.0-16.0) g/dL Hct (37-47) % MCV (80-100) fL MCH (25-34) pg MCHC (32-36) g/dL RDW Std Deviation (36.4-46.3) fL RDW Coeff of Mario (11.5-14.5) % Plt Count (130-400) K/uL MPV (7.4-10.4) fL Sodium 146 H (136-145) mmol/L Potassium 3.2 L (3.5-5.1) mmol/L Chloride 111 H (98-107) mmol/L Carbon Dioxide 29 (21-32) mmol/L Anion Gap 7.0 (3-11) BUN 16 (7-18) mg/dl Creatinine 1.08 (0.6-1.2) mg/dl Est Cr Clr Drug Dosing 42.3 ml/min Est GFR ( Amer) 60.2 Est GFR (Non-Af Amer) 52.0 BUN/Creatinine Ratio 15.0 (10-20) Glucose 93 (70-99) mg/dl Calcium 8.6 (8.5-10.1) mg/dl Magnesium 1.6 L (1.8-2.4) mg/dl Vitamin B1 Pending Vitamin B12 920 H (211-911) pg/ml RPR Lyme Disease IgG Ab (Negative) Lyme Disease IgM Ab (Negative) 08/04/18 08/04/18 Range/Units 06:21 06:21 WBC 5.28 (4.8-10.8) K/uL RBC 3.17 L (4.2-5.4) M/uL Hgb 10.0 L (12.0-16.0) g/dL Hct 30.3 L (37-47) % MCV 95.6 (80-100) fL MCH 31.5 (25-34) pg MCHC 33.0 (32-36) g/dL RDW Std Deviation 48.4 H (36.4-46.3) fL RDW Coeff of Mario 14.0 (11.5-14.5) % Plt Count 338 (130-400) K/uL MPV 9.6 (7.4-10.4) fL Sodium (136-145) mmol/L Potassium (3.5-5.1) mmol/L Chloride (98-107) mmol/L Carbon Dioxide (21-32) mmol/L Anion Gap (3-11) BUN (7-18) mg/dl Creatinine (0.6-1.2) mg/dl Est Cr Clr Drug Dosing ml/min Est GFR ( Amer) Est GFR (Non-Af Amer) BUN/Creatinine Ratio (10-20) Glucose (70-99) mg/dl Calcium (8.5-10.1) mg/dl Magnesium (1.8-2.4) mg/dl Vitamin B1 Vitamin B12 (211-911) pg/ml RPR Pending Lyme Disease IgG Ab Negative (Negative) Lyme Disease IgM Ab Negative (Negative)
[2018-08-05 00:03] LABS: Rapid Plasma Reagin Nonreactive (Nonreactive)
[2018-08-05] MEDS: APIXABAN 5 MG TABLET PO SCH ×2 (07:36→20:22)
[2018-08-05] MEDS: dilTIAZem HCL 120 MG CAPCR PO SCH (07:36)
[2018-08-05] MEDS: THIAMINE HCL 100 MG TAB PO SCH (07:36)
[2018-08-05] MEDS: FOLIC ACID 1 MG TAB PO SCH (07:36)
[2018-08-05] MEDS: AMLODIPINE BESYLATE 5 MG TAB PO SCH (07:36)
[2018-08-05] MEDS: METOPROLOL SUCC 50MG EXT REL TAB PO SCH (07:36)
[2018-08-05] MEDS: MAGNESIUM OXIDE 400 MG TAB PO SCH ×2 (07:36→20:22)
[2018-08-05 07:38] LABS: BUN Creatinine Ratio 14.1 (10-20); Calcium 8.4 mg/dl (8.5-10.1); Creatinine Clr Calc Pharmacy 41.6 ml/min; Est GFR (African American) 59.6; Est GFR (Non-African American) 51.4; Magnesium 1.9 mg/dl (1.8-2.4); Potassium 3.5 mmol/L (3.5-5.1)
[2018-08-05 07:42] LABS: Ferritin 907.6 ng/ml (8-388)
--- NOTE | 2018-08-05 11:41 | Hospitalist Progress Note ---
Date of Service August 05, 2018 Assessment & Plan (1) Atrial fibrillation: - Remains in A. fib, rate controlled on monitor. - Echo in Mar 2018 showed EF 65-70%, grade I diastolic dysfunction. - Cardiology following, appreciate input. - Continue Cardizem 120 mg qAM & Metoprolol 100 mg qAM. - Continue Eliquis 5 mg BID. - Titrated down cardiac meds in setting of bradycardia. (2) Metabolic encephalopathy: - Likely related to hospital delirium vs. ETOH induced atrophy/dementia vs. Wernicke's -- no change in mental status over last 24 hours. - Requires ongoing one to one supervision. - Received high dose Thiamine for treatment of Wernicke's encephalopathy; continue Thiamine 100 mg qAM. - Brain MRI: diffuse atrophy beyond expected age related volume loss, likely related to chronic ETOH exposure. - Consulted psych for evaluation, likely not related to underlying psych diagnosis. - Lyme titer & RPR negative; B12 level elevated; Vit B1 pending. - Neuro consulted, appreciate input. Discontinued Seroquel/Phenobarbital, will monitor for improvement in mental status. No need for further neurologic testing. (3) Alcohol abuse: - Delirium tremens noted during this admission with tachyardia /hallucinations; now resolved. - Reported drinking 2 glasses of mixed drinks with vodka per day; previous admissions state she drinks a fifth of vodka per day. - Has been treated at ETOH rehab in past as teenager; h/o prolonged substance abuse, both benzos and ETOH. - AWSS protocol completed; discontinued benzos. - Discontinued Phenobarbital and Seroquel. - Continue Thiamine and Folic acid. - Will benefit from ETOH rehab and therapy services following discharge from rehab. - MRI brain showed atrophy likely related to chronic ETOH abuse. (4) Acute respiratory failure with hypoxia: - Requires intermittent oxygen, now weaned to room air. - Likely related to pulm vascular congestion. (5) JESS (acute kidney injury): - Creatinine at baseline. - Monitor renal function daily. (6) CKD (chronic kidney disease) stage 3, GFR 30-59 ml/min: - Renally dose all meds. (7) UTI (urinary tract infection): - UC was positive for Klebsiella oxytoca, Citrobacter freundii. - Completed course of Ceftriaxone. (8) Chronic diastolic heart failure: - Echo in Mar 2018 showed grade I DD, EF 65-70%. - Continue beta edwin. - Monitor net I/O's and daily weights. (9) Hypertension: - Continue Metoprolol, Amlodipine and Cardizem. (10) Electrolyte abnormality: - No replacement required. - Continue mag oxide 400 mg BID. - Monitor levels qAM. (11) Weakness: - Likely multi-factorial between chronic ETOH abuse vs poor nutrient intake vs A. fib. - PT/OT - plan for discharge to rehab when medically stable. - At this point, patient cannot tolerate an acute rehab setting -- may be candidate for [facility] SNF placement. - Fnfalxav-wv-foh works at [employer]; family would like her to be discharged to acute rehab if possible. (12) DVT prophylaxis: - Eliquis BID. Disposition: Discharge to rehab pending improvement in encephalopathy; recommend ETOH rehab following SNF placement. Supervising Physician Co-Signing Physician Notes PA Supervision Note: I did not personally see or examine the patient today, but I verified all lucio points of SHANA Cerrato's assessment and plan with the following exception s/additions: None Subjective Mental status unchanged over the last 24 hours. She was smoking her straw this morning, thought object was a cigarette. When asked how she was feeling, patient replied "terrible". She also stated she was waiting for the window dye stand loader to come back. When asked about location, pt. said she was in [place]. She continues to require one to one supervision. Review of Systems Unobtainable due to cognitive status Physical Exam Vital Signs (Past 24 Hours): Last Vital Signs Temp 36.8 C 08/05/18 07:46 Pulse 82 08/05/18 07:46 Resp 16 08/05/18 07:46 BP 155/83 H 08/05/18 07:46 Pulse Ox 94 08/05/18 07:46 Physical Exam: General: Lying in bed, in no acute distress. HEENT: NC/AT; PERRLA with EOMI; [place] conjunctiva, MMM. Neck: Supple and nontender Cardiac: irregular Lungs: CTA bilaterally Abdomen: Bowel normoactive X 4; Nontender to palpation Extremities: Warm. No edema present Neuro: Remains confused, does not answer questions appropriately. Skin: No rash Results & Data Laboratory Results 08/05/18 08/04/18 08/04/18 Range/Units 06:51 20:40 06:21 Sodium 145 (136-145) mmol/L Potassium 3.5 (3.5-5.1) mmol/L Chloride 111 H (98-107) mmol/L Carbon Dioxide 27 (21-32) mmol/L Anion Gap 7.0 (3-11) BUN 15 (7-18) mg/dl Creatinine 1.09 (0.6-1.2) mg/dl Est Cr Clr Drug Dosing 41.6 ml/min Est GFR ( Amer) 59.6 Est GFR (Non-Af Amer) 51.4 BUN/Creatinine Ratio 14.1 (10-20) Glucose 110 H (70-99) mg/dl POC Glucose 132 H (70-99) Calcium 8.4 L (8.5-10.1) mg/dl Magnesium 1.9 (1.8-2.4) mg/dl Iron 37 (35-150) mcg/dl TIBC 132 L (250-450) mcg/dl Transferrin 108 L (200-360) mg/dl Transferrin % Sat 24 (15-50) % Ferritin 907.6 H (8-388) ng/ml RPR Nonreactive (Nonreactive)
--- NOTE | 2018-08-05 13:55 | Neurology Progress Note ---
Date of Service August 05, 2018 Assessment & Plan (1) Metabolic encephalopathy: The patient still has confusion and a thought disorder but does not have the significant paranoia or is much flight of ideas has yesterday. She seems more alert today than yesterday. She is calm and cooperative, showing no signs of agitation or withdrawal. I suspect some component of her mental status presentation is a dementia as well. On examination she has no focal neurologic signs or meningeal signs. There is no sign of infection. MRI of the brain shows diffuse, significant generalized atrophy with moderate old white matter ischemic changes. 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 This could account for the atrophy. She has a history of hypertension which also could account for the small vessel ischemia. Together this could create a significant dementia. Superimposed on this is benzodiazepine and alcohol withdrawal associated with variable magnesium and sodium levels. Low potassium could affect her heart and muscles but would not have an affect on her brain. Anemia can lead to altered mental status states as well. Given both benzodiazepine and alcohol withdrawal issues with the underlying brain/dementia problem it may take another week or 2 for her to fully recover. Given the discontinuation of Seroquel and phenobarbital yesterday this could account for her being more awake and alert today. (2) Alcohol abuse: Patient has considerable alcohol use and abuse chronically. She has just gone through alcohol withdrawal. (3) Atrial fibrillation: Patient has new onset, continuous atrial fibrillation with variable rate. She is followed by the Cardiology. Atrial fibrillation would put her at risk for emboli. Recommendations: 1. Keep off phenobarbital and Seroquel. 2. Increase activity as able including physical therapy. 4. I see no need for additional neurologic testing at this time , including an EEG (I do not suspect seizures). 5. She is on Eliquis 6. Continue nutrition and B vitamins Overall, spent a total of 25 minutes with this case including review of records, direct evaluation the patient at bedside, and discussion of the case with the patient at bedside and clinical staff, including differential diagnosis and treatment options. Subjective Patient currently is seated in a chair, awake and calm and conversant. She is concerned about where the keys to her son's car is and whether not she can go home soon. She is not expressing any paranoid ideation this morning. She has no complaint of pain or headaches and she is not dizzy, weak, or numb. Blood pressure is 114/76. Physical Exam Vital Signs (Past 24 Hours): Last Vital Signs Temp 37 C 08/05/18 12:08 Pulse 89 08/05/18 12:08 Resp 18 08/05/18 12:08 BP 114/76 08/05/18 12:08 Pulse Ox 95 08/05/18 12:08 Physical Exam: She is awake and alert. Speech is without aphasia or dy sarthria. She does not have overt pressured speech and she is pleasant cooperative following one-step commands well. She is not expressing paranoid thoughts but does have some concerns about her son's car keys. She also wants to know if she can go home soon. Extraocular eye muscles are intact without nystagmus and there is no facial droop. Coordination seems reasonable in the limbs and strength is symmetrical.
[2018-08-06 07:23] LABS: Hematocrit (blood only) 29.5 % (37-47); Hemoglobin 9.7 g/dL (12.0-16.0); Mean Corpuscular Hgb Conc 32.9 g/dL (32-36); Mean Corpuscular Volume 95.5 fL (80-100); Mean Platelet Volume 9.5 fL (7.4-10.4); Platelet Count 335 K/uL (130-400); RDW Coefficient of Variation 14.3 % (11.5-14.5); RDW Standard Deviation 48.7 fL (36.4-46.3); Red Blood Count 3.09 M/uL (4.2-5.4); White Blood Count 5.13 K/uL (4.8-10.8)
[2018-08-06] MEDS: THIAMINE HCL 100 MG TAB PO SCH (07:29)
[2018-08-06] MEDS: FOLIC ACID 1 MG TAB PO SCH (07:30)
[2018-08-06] MEDS: APIXABAN 5 MG TABLET PO SCH ×2 (07:30→20:22)
[2018-08-06] MEDS: MAGNESIUM OXIDE 400 MG TAB PO SCH ×2 (07:30→20:22)
[2018-08-06] MEDS: AMLODIPINE BESYLATE 5 MG TAB PO SCH (07:30)
[2018-08-06] MEDS: dilTIAZem HCL 120 MG CAPCR PO SCH (07:30)
[2018-08-06] MEDS: METOPROLOL SUCC 50MG EXT REL TAB PO SCH (07:30)
[2018-08-06 07:40] LABS: BUN Creatinine Ratio 14.9 (10-20); Calcium 8.2 mg/dl (8.5-10.1); Creatinine Clr Calc Pharmacy 36.9 ml/min; Est GFR (Non-African American) 44.8; Magnesium 1.8 mg/dl (1.8-2.4); Potassium 3.5 mmol/L (3.5-5.1)
[2018-08-06] MEDS ORDERED: OLANZAPINE 2.5 MG TAB PO PRN (13:59)
--- NOTE | 2018-08-06 16:37 | Hospitalist Progress Note ---
Date of Service August 06, 2018 Assessment & Plan (1) Atrial fibrillation: Likely chronic afb, rate controlled on monitor. Echo in 03/2018 showed EF 65-70%, grade I diastolic dysfunction. - Cardiology following, appreciate input. - Continue Cardizem 120 mg qAM & Metoprolol 100 mg qAM. - Continue Eliquis 5 mg BID. - Titrated down cardiac meds in setting of bradycardia. (2) Metabolic encephalopathy: Likely related to ETOH induced atrophy/dementia vs. Wernicke's -- no change in mental status over last 24 hours. Brain MRI on 08/01 showed diffuse atrophy beyond expected age related volume loss, likely related to chronic ETOH exposure. Seen by psych with thought that no primary psychiatric issue was present. Seen by neurology with thought that it is EToH-related. Either long- term withdrawal vs. alcohol-related dementia. Lyme titer & RPR negative; B12 level elevated; Vit B1 pending. No need for further neurologic testing needed. - Requires ongoing one to one supervision. - Received high dose thiamine for treatment of Wernicke's encephalopathy; continue Thiamine 100 mg qAM. (3) Alcohol abuse: Delirium tremens noted during this admission with tachyardia/hallucinations; now resolved. Previous admissions state she drinks a fifth of vodka per day. H/o prolonged substance abuse, both benzos and ETOH. - AWSS protocol completed; discontinued benzos. - Discontinued Phenobarbital and Seroquel. - Continue Thiamine and Folic acid. - Will benefit from ETOH rehab and therapy services following discharge from rehab. (4) CKD (chronic kidney disease) stage 3, GFR 30-59 ml/min: Baseline Cr is ~1.1 with eGFR of 50. - Currently at baseline. - Renally dose all meds. (5) Chronic diastolic heart failure: Echo in 03/2018 showed grade I DD, EF 65-70%. - Continue beta edwin. - Monitor net I/O's and daily weights. (6) Hypertension: BP in last 24 hours has been at goal (~140/100). - Continue Metoprolol, Amlodipine, and Cardizem. (7) Weakness: Likely multi-factorial between chronic ETOH abuse vs poor nutrient intake vs A. fib. - PT/OT - plan for discharge to rehab when medically stable. - At this point, patient cannot tolerate an acute rehab setting -- may be candidate [facility]. - Qefdxhlb-tl-pue works at [employer]; family would like her to be discharged to acute rehab if possible. (8) DVT prophylaxis: Jose Ramon FRAZIER Subjective 72yo F w/ hx of EToH abuse who presents for alcohol withdrawal and now with delirium/dementia. Mental status appears unchanged. AAOx1, discussing her son's game and telling me about her baby (plastic doll in her hands). This afternoon, attempting to get out of bed and saying she needs a drink. Physical Exam Vital Signs (Past 24 Hours): Last Vital Signs Temp 36.6 C 08/06/18 11:10 Pulse 79 08/06/18 11:10 Resp 18 08/06/18 11:10 BP 137/99 08/06/18 11:10 Pulse Ox 97 08/06/18 11:10 Constitutional: + disheveled; no acute distress, not ill appearing and not diaphoretic Eyes: + anicteric sclerae ENMT: Ears: no hearing impairment Neck: trachea midline Respiratory: normal respiratory effort, lungs clear to auscultation normal respiratory effort and + cough Auscultation: + rhonchi Cardiovascular: Rate/Rhythm: + tachycardic; + abnormal rhythm (irregular) Gastrointestinal (Abdomen): Inspection/Auscultation: normal bowel sounds Percussion/Palpation: abdomen soft; abdomen nontender Musculoskeletal: Head/Neck/Chest: normocephalic, head atraumatic and neck supple Skin: no rashes, warm and dry Neurologic: moves all extremities Motor/Sensory: + tremor Psychiatric: Orientation: alert; + not oriented x 3 (only oriented to self) Apperance: + disheveled Eye Contact: + poor eye contact Motor Behavior: + psychomotor agitation (improved) Affect: + anxious affect Mood: + anxious mood (mild) Thought Process: + tangential thought process Thought Content: + paranoid and + cognitive distortions Hallucinations: + auditory hallucinations and + visual hallucinations Insight: + poor insight Judgement: + poor judgement
[2018-08-07] MEDS: AMLODIPINE BESYLATE 5 MG TAB PO SCH (07:58)
[2018-08-07] MEDS: METOPROLOL SUCC 50MG EXT REL TAB PO SCH (07:58)
[2018-08-07] MEDS: MAGNESIUM OXIDE 400 MG TAB PO SCH ×2 (07:59→21:35)
[2018-08-07] MEDS: APIXABAN 5 MG TABLET PO SCH ×2 (07:59→21:35)
[2018-08-07] MEDS: FOLIC ACID 1 MG TAB PO SCH (07:59)
[2018-08-07] MEDS: THIAMINE HCL 100 MG TAB PO SCH (07:59)
[2018-08-07] MEDS: dilTIAZem HCL 120 MG CAPCR PO SCH (08:00)
[2018-08-07 08:21] LABS: BUN Creatinine Ratio 15.8 (10-20); Calcium 8.8 mg/dl (8.5-10.1); Creatinine Clr Calc Pharmacy 36.6 ml/min; Est GFR (Non-African American) 49.2; Magnesium 1.8 mg/dl (1.8-2.4); Potassium 3.2 mmol/L (3.5-5.1)
--- NOTE | 2018-08-07 16:59 | Hospitalist Progress Note ---
Date of Service August 07, 2018 Assessment & Plan (1) Atrial fibrillation: Likely chronic afb, rate controlled on monitor. Echo in 03/2018 showed EF 65-70%, grade I diastolic dysfunction. - Cardiology following, appreciate input. - Continue Cardizem 120 mg qAM & Metoprolol 100 mg qAM. - Continue Eliquis 5 mg BID. - Titrated down cardiac meds in setting of bradycardia. (2) Metabolic encephalopathy: Likely related to EToH induced atrophy/dementia vs. Wernicke's -- no change in mental status over last 24 hours. Brain MRI on 08/01 showed diffuse atrophy beyond expected age related volume loss, likely related to chronic ETOH exposure. Seen by psych with thought that no primary psychiatric issue was present. Seen by neurology with thought that it is EToH-related. Either long- term withdrawal vs. alcohol-related dementia. Lyme titer & RPR negative; B12 level elevated; Vit B1 pending. No need for further neurologic testing needed. - Requires ongoing one to one supervision. - Received high dose thiamine for treatment of Wernicke's encephalopathy; continue Thiamine 100 mg qAM. - Trialing low-dose olanzapine for agitation (3) Alcohol abuse: Delirium tremens noted during this admission with tac hyardia/hallucinations; now resolved. Previous admissions state she drinks a fifth of vodka per day. H/o prolonged substance abuse, both benzos and ETOH. - AWSS protocol completed; discontinued benzos. - Discontinued Phenobarbital and Seroquel. - Continue Thiamine and Folic acid. - Will benefit from EToH rehab and therapy services following discharge from rehab. (4) CKD (chronic kidney disease) stage 3, GFR 30-59 ml/min: Baseline Cr is ~1.1 with eGFR of 50. - Currently at baseline. - Renally dose all meds. (5) Chronic diastolic heart failure: Echo in 03/2018 showed grade I DD, EF 65-70%. - Continue beta edwin. - Monitor net I/O's and daily weights. (6) Hypertension: BP in last 24 hours has been at goal (120/80-140/100). - Continue metoprolol, amlodipine, and Cardizem. (7) Weakness: Likely multi-factorial between chronic EtOH abuse vs poor nutrient intake vs A. fib. - PT/OT - plan for discharge to rehab when medically stable. - At this point, patient cannot tolerate an acute rehab setting -- may be can didate for long-term SNF placement. - Yjymtqzw-ib-tqm works at [employer]; family would like her to be discharged to acute rehab if possible. (8) DVT prophylaxis: Melyssaquibrahima BID Subjective 72yo F w/ hx of EToH abuse who presents for alcohol withdrawal and now with delirium/dementia. Mental status appears mildly. AAOx1, but still discussing random events. Physical Exam Vital Signs (Past 24 Hours): Last Vital Signs Temp 36.5 C 08/07/18 15:30 Pulse 85 08/07/18 15:30 Resp 20 08/07/18 15:30 BP 121/77 08/07/18 15:30 Pulse Ox 95 08/07/18 15:30 Constitutional: no acute distress, not ill appearing and not diaphoretic Eyes: + anicteric sclerae ENMT: Ears: no hearing impairment Neck: trachea midline Respiratory: normal respiratory effort, lungs clear to auscultation normal respiratory effort Cardiovascular: Rate/Rhythm: + abnormal rhythm (irregular) Gastrointestinal (Abdomen): Percussion/Palpation: abdomen soft; abdomen nontender Musculoskeletal: Head/Neck/Chest: normocephalic, head atraumatic and neck supple Skin: no rashes, warm and dry Neurologic: moves all extremities Psychiatric: Orientation: alert
[2018-08-08 07:41] LABS: Hematocrit (blood only) 32.7 % (37-47); Mean Corpuscular Hgb Conc 33.6 g/dL (32-36); Mean Corpuscular Volume 95.9 fL (80-100); Mean Platelet Volume 9.3 fL (7.4-10.4); Platelet Count 339 K/uL (130-400); RDW Coefficient of Variation 14.4 % (11.5-14.5); RDW Standard Deviation 49.4 fL (36.4-46.3); Red Blood Count 3.41 M/uL (4.2-5.4)
[2018-08-08] MEDS: MAGNESIUM OXIDE 400 MG TAB PO SCH (07:48)
[2018-08-08] MEDS: FOLIC ACID 1 MG TAB PO SCH (07:48)
[2018-08-08] MEDS: THIAMINE HCL 100 MG TAB PO SCH (07:49)
[2018-08-08] MEDS: dilTIAZem HCL 120 MG CAPCR PO SCH (07:49)
[2018-08-08] MEDS: METOPROLOL SUCC 50MG EXT REL TAB PO SCH (07:49)
[2018-08-08] MEDS: APIXABAN 5 MG TABLET PO SCH (07:49)
[2018-08-08] MEDS: AMLODIPINE BESYLATE 5 MG TAB PO SCH (07:50)
[2018-08-08 08:08] LABS: BUN Creatinine Ratio 15.2 (10-20); Calcium 8.7 mg/dl (8.5-10.1); Creatinine Clr Calc Pharmacy 37.3 ml/min; Est GFR (African American) 58.3; Est GFR (Non-African American) 50.3; Potassium 3.3 mmol/L (3.5-5.1)
--- NOTE | 2018-08-08 14:35 | Hospitalist Progress Note ---
Date of Service August 08, 2018 Assessment & Plan (1) Metabolic encephalopathy: Likely related to EtOH induced atrophy/dementia vs. Wernicke's -- no change in mental status over last 24 hours. Brain MRI on 08/01 showed diffuse atrophy beyond expected age related volume loss, likely related to chronic ETOH exposure. Seen by psych with thought that no primary psychiatric issue was present. Seen by neurology with thought that it is EToH-related. Either long- term withdrawal vs. alcohol-related dementia. Lyme titer & RPR negative; B12 level elevated; Vit B1 pending. No need for further neurologic testing needed. - Per neurology, could takes weeks for full delirium to resolve and determine t rue baseline mental status - Received high dose thiamine for treatment of Wernicke's encephalopathy; continue Thiamine 100mg PO QAM. - By 08/06, pleasant, conversant, no overt hallucinations, but still very tangential and only AAOx1. (2) Atrial fibrillation: Likely chronic afib, rate controlled on monitor. Echo in 03/2018 showed EF 65-70%, grade I diastolic dysfunction. - Cardiology following, appreciate input. - Continue Eliquis 5 mg BID. - Continue Cardizem 120 mg qAM & Metoprolol 100 mg qAM. (3) Alcohol abuse: Delirium tremens noted during this admission with tachyardia/hallucinations; now resolved. Previous admissions stated she drinks a fifth of vodka per day. H/o prolonged substance abuse, both benzos and ETOH. - AWSS protocol completed; discontinued benzos. - Was on phenobarbital and Seroquel for some agitation, but did not help. Both stopped on 08/05 without any additional anti-psychotic needed. - Continue thiamine and folic acid. - Will benefit from EtOH rehab and therapy services following discharge from rehab. (4) CKD (chronic kidney disease) stage 3, GFR 30-59 ml/min: Baseline Cr is ~1.1 with eGFR of 50. - Currently at baseline. - Renally dose all meds. (5) Chronic diastolic heart failure: Echo in 03/2018 showed grade I DD, EF 65-70%. - Continue beta edwin. - Monitor net I/O's and daily weights. - No signs of volume overload as of 08/08 (6) Hypertension: BP in last 24 hours has been at goal (120/80-140/100). - Continue metoprolol, amlodipine, and Cardizem. (7) Weakness: Likely multi-factorial between chronic EtOH abuse and poor nutrient intake. - PT/OT - plan for discharge to rehab when medically stable. (8) DVT prophylaxis: Eliquis BID Subjective 72yo F w/ hx of EToH abuse who presents for alcohol withdrawal and now with delirium/dementia. Mental status appears mildly improved in the last few days, but still very tangential. AAOx1, but still discussing random events. Physical Exam Vital Signs (Past 24 Hours): Last Vital Signs Temp 37.0 C 08/08/18 11:38 Pulse 78 08/08/18 11:38 Resp 18 08/08/18 11:38 BP 129/72 08/08/18 11:38 Pulse Ox 94 08/08/18 11:38 Constitutional: no acute distress, not ill appearing and not diaphoretic Eyes: + anicteric sclerae ENMT: Ears: no hearing impairment Neck: trachea midline Respiratory: normal respiratory effort, lungs clear to auscultation Cardiovascular: Rate/Rhythm: + abnormal rhythm (irregular) Gastrointestinal (Abdomen): Inspection/Auscultation: normal bowel sounds Percussion/Palpation: abdomen soft; abdomen nontender Musculoskeletal: Head/Neck/Chest: normocephalic, head atraumatic and neck supple Skin: no rashes, warm and dry Neurologic: moves all extremities Motor/Sensory: + tremor Psychiatric: Orientation: alert Apperance: + disheveled Thought Process: + tangential thought process Insight: + poor insight Judgement: + poor judgement
[2018-08-08] MEDS ORDERED: POTASSIUM CHLORIDE 10 MEQ TABCR PO STA (14:49)
[2018-08-09] MEDS: MAGNESIUM OXIDE 400 MG TAB PO SCH ×3 (02:07→20:29)
[2018-08-09] MEDS: APIXABAN 5 MG TABLET PO SCH ×3 (02:07→20:29)
[2018-08-09 07:36] LABS: BUN Creatinine Ratio 12.3 (10-20); Calcium 8.5 mg/dl (8.5-10.1); Creatinine Clr Calc Pharmacy 34.8 ml/min; Est GFR (African American) 53.6; Est GFR (Non-African American) 46.2; Potassium 3.7 mmol/L (3.5-5.1)
[2018-08-09] MEDS: dilTIAZem HCL 120 MG CAPCR PO SCH (07:43)
[2018-08-09] MEDS: THIAMINE HCL 100 MG TAB PO SCH (07:43)
[2018-08-09] MEDS: AMLODIPINE BESYLATE 5 MG TAB PO SCH (07:44)
[2018-08-09] MEDS: METOPROLOL SUCC 50MG EXT REL TAB PO SCH (07:44)
[2018-08-09] MEDS: FOLIC ACID 1 MG TAB PO SCH (07:46)
--- NOTE | 2018-08-09 15:25 | Hospitalist Progress Note ---
Date of Service August 09, 2018 Assessment & Plan (1) Metabolic encephalopathy: Likely related to EtOH induced atrophy/dementia vs. Wernicke's -- minimal change in mental status over last 24 hours. Brain MRI on 08/01 showed diffuse atrophy beyond expected age related volume loss, likely related to chronic ETOH exposure. Seen by psych with thought that no primary psychiatric issue was present. Seen by neurology with thought that it is EToH-related. Either long- term withdrawal vs. alcohol-related dementia. Lyme titer & RPR negative; B12 level elevated; Vit B1 pending. No need for further neurologic testing needed. - Per neurology, could takes weeks for full delirium to resolve and determine true baseline mental status - Received high dose thiamine for treatment of Wernicke's encephalopathy; continue thiamine 100mg PO QAM. - By 08/06, pleasant, conversant, no overt hallucinations, but still very tangential and only AAOx1-2. (2) Atrial fibrillation: Likely chronic afib, rate controlled now. Echo in 03/2018 showed EF 65- 70%, grade I diastolic dysfunction. - Cardiology followed, appreciate input. - Continue Eliquis 5 mg BID. - Continue Cardizem 120 mg qAM & Metoprolol 100 mg qAM. (3) Alcohol abuse: Delirium tremens noted during this admission with tachyardia/hallucinations; now resolved. Previous admissions stated she drinks a fifth of vodka per day. H/o prolonged substance abuse, both benzos and EtOH. - AWSS protocol completed; discontinued benzos. - Was on phenobarbital and Seroquel for some agitation, but did not help. Both stopped on 08/05 without any additional anti-psychotic needed. - Continue thiamine and folic acid. - Will benefit from EtOH rehab and therapy services following discharge from rehab. (4) CKD (chronic kidney disease) stage 3, GFR 30-59 ml/min: Baseline Cr is ~1.1 with eGFR of 50. - Currently at baseline. - Renally dose all meds. (5) Chronic diastolic heart failure: Echo in 03/2018 showed grade I DD, EF 65-70%. - Continue beta edwin. - Monitor net I/O's and daily weights. - No signs of volume overload as of 08/09 (6) Hypertension: BP in last 24 hours has been at goal (120/80-140/100). - Continue metoprolol, amlodipine, and Cardizem. (7) Weakness: Likely multi-factorial between chronic EtOH abuse and poor nutrient intake. - PT/OT - plan for discharge to rehab when medically stable. (8) DVT prophylaxis: Eliquis BID Subjective 72yo F w/ hx of EToH abuse who presents for alcohol withdrawal and now with delirium/dementia. Mental status appears mildly improved in the last few days, but still very tangential. Actually remembered [place] today, so mild improvement. Physical Exam Vital Signs (Past 24 Hours): Last Vital Signs Temp 36.3 C L 08/09/18 08:25 Pulse 99 H 08/09/18 08:25 Resp 16 08/09/18 08:25 BP 116/61 08/09/18 08:25 Pulse Ox 98 08/09/18 08:25 Constitutional: + acute distress; not ill appearing and not diaphoretic Eyes: + anicteric sclerae ENMT: Ears: no hearing impairment Neck: trachea midline Respiratory: normal respiratory effort, lungs clear to auscultation normal respiratory effort Cardiovascular: Rate/Rhythm: + abnormal rhythm (irregular) Gastrointestinal (Abdomen): Inspection/Auscultation: normal bowel sounds Percussion/Palpation: abdomen soft; abdomen nontender Musculoskeletal: Head/Neck/Chest: normocephalic, head atraumatic and neck supple Skin: no rashes, warm and dry Neurologic: moves all extremities Psychiatric: Orientation: alert Apperance: + disheveled Motor Behavior: + psychomotor agitation (improved) Mood: + anxious mood (mild) Thought Process: + tangential thought process
[2018-08-10 06:12] LABS: Hemoglobin 11.5 g/dL (12.0-16.0); Mean Corpuscular Hgb Conc 32.9 g/dL (32-36); Mean Platelet Volume 9.6 fL (7.4-10.4); Platelet Count 336 K/uL (130-400); RDW Coefficient of Variation 14.7 % (11.5-14.5); RDW Standard Deviation 51.8 fL (36.4-46.3); Red Blood Count 3.61 M/uL (4.2-5.4)
[2018-08-10] MEDS: THIAMINE HCL 100 MG TAB PO SCH (09:28)
[2018-08-10] MEDS: dilTIAZem HCL 120 MG CAPCR PO SCH (09:28)
[2018-08-10] MEDS: AMLODIPINE BESYLATE 5 MG TAB PO SCH (09:28)
[2018-08-10] MEDS: FOLIC ACID 1 MG TAB PO SCH (09:28)
[2018-08-10] MEDS: APIXABAN 5 MG TABLET PO SCH ×2 (09:28→20:56)
[2018-08-10] MEDS: MAGNESIUM OXIDE 400 MG TAB PO SCH ×2 (09:29→20:56)
[2018-08-10] MEDS: METOPROLOL SUCC 50MG EXT REL TAB PO SCH (09:29)
--- NOTE | 2018-08-10 13:34 | Hospitalist Progress Note ---
Date of Service August 10, 2018 Assessment & Plan (1) Metabolic encephalopathy: Likely related to EtOH induced atrophy/dementia vs. Wernicke's -- minimal change in mental status over last 24 hours. Brain MRI on 08/01 showed diffuse atrophy beyond expected age related volume loss, likely related to chronic ETOH exposure. Seen by psych with thought that no primary psychiatric issue was present. Seen by neurology with thought that it is EToH-related. Either long- term withdrawal vs. alcohol-related dementia. Lyme titer & RPR negative; B12 level elevated; Vit B1 pending. No need for further neurologic testing needed. - Received high dose thiamine for treatment of Wernicke's encephalopathy; continue thiamine 100mg PO QAM. - Per neurology, could takes weeks for full delirium to resolve and determine true baseline mental status - By 08/06, pleasant, conversant, no overt hallucinations, but still very tangential and only AAOx1-2. - Mildly more agitated on 08/10 (2) Atrial fibrillation: Likely chronic afib, rate controlled now. Echo in 03/2018 showed EF 65- 70%, grade I diastolic dysfunction. - Cardiology followed, appreciate input. - Continue Eliquis 5 mg BID. - Continue Cardizem 120 mg qAM & Metoprolol 100 mg qAM. (3) Alcohol abuse: Delirium tremens noted during this admission with tachyardia/hallucinations; now resolved. Previous admissions stated she drinks a fifth of vodka per day. H/o prolonged substance abuse, both benzos and EtOH. - AWSS protocol completed; discontinued benzos. - Was on phenobarbital and Seroquel for some agitation, but did not help. Both stopped on 08/05 without any additional anti-psychotic needed. - Continue thiamine and folic acid. - Will benefit from EtOH rehab and therapy services following discharge from rehab. (4) CKD (chronic kidney disease) stage 3, GFR 30-59 ml/min: Baseline Cr is ~1.1 with eGFR of 50. - Currently at baseline. - Renally dose all meds. (5) Chronic diastolic heart failure: Echo in 03/2018 showed grade I DD, EF 65-70%. - Continue beta edwin. - Monitor net I/O's and daily weights. - No signs of volume overload as of 08/10 (6) Hypertension: BP in last 24 hours has been at goal (120/80-140/100). - Continue metoprolol, amlodipine, and Cardizem. (7) Weakness: Likely multi-factorial between chronic EtOH abuse and poor nutrient intake. - PT/OT - plan for discharge to rehab when medically stable. (8) DVT prophylaxis: Eliquibrahima BID Subjective 72yo F w/ hx of EToH abuse who presents for alcohol withdrawal and now with delirium/dementia. Mental status a little worse today with some agitation about calling her son and her son losing her house. Physical Exam Vital Signs (Past 24 Hours): Last Vital Signs Temp 36.7 C 08/10/18 07:02 Pulse 90 08/10/18 07:02 Resp 16 08/10/18 07:02 BP 127/85 08/10/18 07:02 Pulse Ox 96 08/10/18 07:02 Constitutional: + acute distress; not ill appearing and not diaphoretic Eyes: + anicteric sclerae ENMT: Ears: no hearing impairment Neck: trachea midline Respiratory: normal respiratory effort, lungs clear to auscultation normal respiratory effort Auscultation: + rhonchi Cardiovascular: Rate/Rhythm: + abnormal rhythm (irregular) Gastrointestinal (Abdomen): Inspection/Auscultation: normal bowel sounds Percussion/Palpation: abdomen soft; abdomen nontender Musculoskeletal: Head/Neck/Chest: normocephalic, head atraumatic and neck supple Skin: no rashes, warm and dry Neurologic: moves all extremities Psychiatric: Orientation: alert Apperance: + disheveled Motor Behavior: + psychomotor agitation (improved) Insight: + poor insight Judgement: + poor judgement
[2018-08-11 08:30] VITALS: TEMP 98.2; O2SAT 97
[2018-08-11] MEDS: APIXABAN 5 MG TABLET PO SCH (09:06)
[2018-08-11] MEDS: AMLODIPINE BESYLATE 5 MG TAB PO SCH (09:06)
[2018-08-11] MEDS: MAGNESIUM OXIDE 400 MG TAB PO SCH (09:06)
[2018-08-11] MEDS: THIAMINE HCL 100 MG TAB PO SCH (09:07)
[2018-08-11] MEDS: dilTIAZem HCL 120 MG CAPCR PO SCH (09:07)
[2018-08-11] MEDS: METOPROLOL SUCC 50MG EXT REL TAB PO SCH (09:07)
[2018-08-11] MEDS: FOLIC ACID 1 MG TAB PO SCH (09:07)
[2018-08-11 11:10] VITALS: BP 120/70; PULSE 83
--- NOTE | 2018-08-11 17:38 | Discharge Summary ---
Date of Service August 11, 2018 Admission HPI Per Admitting Provider Patient presented after a fall at home, was a poor historian on admission, but reported that she fell when she was trying to lift a table up a flight of steps and tripped on the carpet, landing on her bottom. She wears a life alert which was triggered and EMS responded. She denied loss of consciousness. On admission, she was hypokalemic, hyponatremic and in atrial fibrillation, said she was not taking prescribed metoprolol, and cardiology was consulted. She has a history of falls and syncopal episodes that were thought to be related to her drinking, and her son reported to staff on admission that the family has been trying to stage an intervention due to her increasing alcohol abuse. He said her drinking has worsened since her in 2014. He says she has no psychiatric history, but thinks she has struggled with anxiety and depressive symptoms. They do not feel she is safe to go home alone, and would like her to go to rehab for her alcoholism upon discharge from the hospital. They said at baseline she is alert and oriented, but makes poor decisions regarding her health, and they were concerned for her safety living at home alone. The patient told the admitting clinician she has tried to cut back on her drinking as she was told this is likely contributing to her problems, but would not go into great details about her drinking. She initially reported drinking two "good sized" glasses of vodka with mixers daily, but family reports she has been drinking to blackout daily for the past several months. Cardiology has been following her and adjusting her medications for atrial fibrillation, and she began to exhibit symptoms of alcohol withdrawal 07/25/2018 (2 days after her last drink), and was placed on AWSS protocol with folate, thiamine, gabapentin taper and lorazepam as needed. By the following day, she developed delirium tremens, and on 07/27/2018 she was started on scheduled chlordiazepoxide with continued as needed lorazepam, and quetiapine 12.5 mg at bedtime was added for behavior. She completed the gabapentin taper, but continued to receive chlordiazepoxide 75 mg daily and as needed Ativan, receiving up to 10 mg a day. On 07/30/2018, chlordiazepoxide was discontinued and she was started on phenobarbital 30 mg twice daily for "ongoing confusion," and quetiapine was increased to 25 mg daily. She received 2 mg of lorazepam yesterday, and none so far today. Her most recent AWSS assessments indicates she is scoring on agitation, distractibility, orientation, and hallucinations (although staff note they are uncertain if she is experiencing hallucinations), while the somatic subscale has not been triggering. The psychiatric liaison nurse attempted to assess her last evening, and this physician attempted to assess her today, and neither of us were able to get any meaningful information from her. The one-to-one staff sitting with her stated she did not sleep overnight, and although she talks and speech is intelligible, she does not make any sense. She will try to sweet pickle maker the phone and make phone calls but is unable to, and has a baby doll at the bedside and was acting as if she was going to smoke the baby doll like it was a cigarette. Per case management notes, the patient's son is her POA, and they are pursuing referrals to physical rehab centers for her to regain her strength, with a hope that she will then attend inpatient substance abuse treatment. Nursing notes indicate that she is completely disoriented, has stated she is in [place], and is alert only to herself. Principal Diagnosis Alcohol withdrawal and possible dementia Discharge Exam Constitutional + acute distress; not ill appearing and not diaphoretic Eyes + anicteric sclerae ENMT Ears: no hearing impairment Neck trachea midline Respiratory normal respiratory effort, lungs clear to auscultation normal respiratory effort Auscultation: + rhonchi Cardiovascular Rate/Rhythm: + abnormal rhythm (irregular) Gastrointestinal (Abdomen) Inspection/Auscultation: normal bowel sounds Percussion/Palpation: abdomen soft; abdomen nontender Musculoskeletal Head/Neck/Chest: normocephalic, head atraumatic and neck supple Skin no rashes, warm and dry Neurologic moves all extremities Motor/Sensory: + tremor Psychiatric Orientation: alert Apperance: + disheveled Eye Contact: + poor eye contact Motor Behavior: + psychomotor agitation (improved) Affect: + anxious affect Mood: + anxious mood (mild) Thought Process: + tangential thought process Thought Content: + paranoid and + cognitive distortions Hallucinations: + auditory hallucinations and + visual hallucinations Insight: + poor insight Judgement: + poor judgement Discharge Data Allergies Allergy/AdvReac Type Severity Reaction Status Date / Time Penicillins Allergy Unknown CAN'T Verified 07/24/18 14:09 REMEMBER MY[employer]IN [employer]GS Allergy Unknown CAN'T Uncoded 07/24/18 14:09 REMEMBER-SEE COMMENT Consultations 07/24/18 14:00 ED Decision to Admit Stat 07/24/18 17:19 Consult Cardiology Routine Consult Case Management - Discharge Planning Routine 08/01/18 14:15 Consult Psychiatry Routine 08/03/18 15:55 Consult Neurology Routine Ordered Studies 07/24/18 12:28 CT cervical spine wo con Stat CT head/brain wo con Stat 08/01/18 14:16 MR brain wo con Urgent Hospital Course (1) Metabolic encephalopathy: Likely related to EtOH induced atrophy/dementia vs. Wernicke's -- minimal change in mental status over last 24 hours. Brain MRI on 08/01 showed diffuse atrophy beyond expected age related volume loss, likely related to chronic ETOH exposure. Seen by psych with thought that no primary psychiatric issue was present. Seen by neurology with thought that it is EToH-related. Either long- term withdrawal vs. alcohol-related dementia. Lyme titer & RPR negative; B12 level elevated; Vit B1 pending. No need for further neurologic testing needed. - Received high dose thiamine for treatment of Wernicke's encephalopathy; continue thiamine 100mg PO QAM. - Per neurology, could takes weeks for full delirium to resolve and determine true baseline mental status - By 08/06, pleasant, conversant, no overt hallucinations, but still very tangential and only AAOx1-2. (2) Atrial fibrillation: Likely chronic afib, rate controlled now. Echo in 03/2018 showed EF 65- 70%, grade I diastolic dysfunction. - Cardiology followed, appreciate input. - Continued Eliquis 5 mg BID. - Continued Cardizem 120 mg qAM & Metoprolol 100 mg qAM. (3) Alcohol abuse: Delirium tremens noted during this admission with tachyardia/hallucinations; now resolved. Previous admissions stated she drinks a fifth of vodka per day. H/o prolonged substance abuse, both benzos and EtOH. - AWSS protocol completed; discontinued benzos. - Was on phenobarbital and Seroquel for some agitation, but did not help. Both stopped on 08/05 without any additional anti-psychotic needed. - Continue thiamine and folic acid. - Will benefit from EtOH rehab and therapy services following discharge from rehab. (4) CKD (chronic kidney disease) stage 3, GFR 30-59 ml/min: Baseline Cr is ~1.1 with eGFR of 50. - Currently at baseline. (5) Chronic diastolic heart failure: Echo in 03/2018 showed grade I DD, EF 65-70%. - Continue beta edwin. - Monitor net I/O's and daily weights. - No signs of volume overload as of 08/10 (6) Hypertension: BP in last 24 hours has been at goal (120/80-140/100). - Continue metoprolol, amlodipine, and Cardizem. (7) Weakness: Likely multi-factorial between chronic EtOH abuse and poor nutrient intake. - PT/OT - plan for discharge to rehab when medically stable. (8) DVT prophylaxis: Eliquis BID Total Time Total Time Spent Total Time Spent (In Minutes): 45 Total Time Includes: Examination of the Patient, Discharge Planning and Medication Reconciliation Discharge Plan Discharge Items Patient Disposition: Transfer Inpatient Rehab Fac Reason For Visit: ATRIAL FIBRILLATION WITH RVR Discharge Diagnosis: Alcohol withdrawal, alcohol dementia, atrial fibrillation with RVR Discharge Goals: Improve function, Increase independence and Improve nutritional status Activity: Resume your previous activity Driving/Machine Use Comment: No driving Non-emergency contact: Primary Care Provider Call non-emergency contact if: your symptoms worsen, your pain is not controlled and your temperature is above 101 Follow-up/Referrals: Guillermo Mckinnon [Primary Care Provider] - Diet: Regular Addtl Provider Instructions: Ms. Bradley was admitted to the hospital with alcohol intoxication and withdrawal. She had a difficult withdrawal with hallucinations and significant agitation. However, her Ativan use was weaned, and she has been off all benzos for >1 week on discharge. She remained confused about location and time. She had a MRI brain on 08/01 which showed "diffuse atrophy advanced beyond expected age-related and small vessel disease." She was seen by neurology and psychiatry who felt this was either a very slowly resolving delirium or permanant alcohol-related dementia. She was trialed on high-dose thiamine to treat Wernicke-Korsakoff syndrome, but it did not make a substantial difference in her mental status. She seemed to be gradually improving (remembering where she was occasionally), but had not had major change in the 3-4 days prior to discharge. She was trialled on Seroquel and phenobarbital without any improvement in her agitation, so these were stopped by 08/05. She was on no psychiatric medications in the days prior to discharge. She had an episode of afib with RVR which was stabilized and treated with oral rate control and Eliquis for anticoagulation. Her HR has ranged from 70-90 in the days leading up to discharge with normal BPs. Prescriptions: New acetaminophen [Mapap (acetaminophen)] 325 mg Tablet 650 mg PO Q4H PRN (Reason: fever or pain) Qty: 1 RF: 0 metoprolol succinate 50 mg Tablet Extended Release 24 Hr 100 mg PO QAM Qty: 1 RF: 0 diltiazem HCl 120 mg Capsule,Extended Release 24hr 120 mg PO QAM Qty: 1 RF: 0 Eliquis 5 mg Tablet 5 mg PO BID Qty: 2 RF: 0 thiamine HCl (vitamin B1) [Vitamin B-1] 100 mg Tablet 100 mg PO QAM Qty: 1 RF: 0 folic acid 1 mg Tablet 1 mg PO QAM Qty: 1 RF: 0 Continued amlodipine 2.5 mg Tablet 2.5 mg PO DAILY RF: 0 Discontinued trazodone 50 mg Tablet 50 mg PO DAILY RF: 0 alprazolam [Xanax] 1 mg Tablet 1 mg PO BID RF: 0 metoprolol succinate 25 mg Tablet Extended Release 24 Hr 25 mg PO DAILY RF: 0 Stand-Alone Forms: [facility] Discharge Orders: Discharge Order (Routine); Ordered 08/11/18 Ordered By: John Hernandez Skilled Items Patient informed of condition?: Yes DNR: No Discharge Level of Care: Acute rehab Communicable Disease: No Discharge Prognosis: Stable Admission Data Admit Date/Time: 07/24/18 15:24 Attending Provider: John Hernandez Admit Provider: Raymond Chavarria Primary Care Provider: Guillermo Mckinnon Other Providers: Raymond Chavarria ; Bryce Reddy ; Estella Okeefe Emile Pierre III Service: Telemetry Medical Other Interventions: Discharge Summary Assessment (RN) Last Done: 08/11/18 11:07 DC Date/Time DO NOT enter until pt leaves facility: 08/11/18 13:50
== END 2018-08-11 13:50 | DRG 896 ==
LOC: ED 11:42 → 2S 15:24 → SUATTDRO 15:24 → 2S 16:49 → 2N 08-04 18:19
DX: I67.82 Cerebral ischemia; I47.2 Ventricular tachycardia; N39.0 Urinary tract infection, site not specified; G47.00 Insomnia, unspecified; E87.6 Hypokalemia; Z91.81 History of falling; I13.0 Hypertensive heart and chronic kidney disease with heart failure and stage 1 through stage 4 chronic kidney disease, or unspecified chronic kidney disease; E87.1 Hypo-osmolality and hyponatremia; F17.200 Nicotine dependence, unspecified, uncomplicated; E86.0 Dehydration; E83.42 Hypomagnesemia; Z88.0 Allergy status to penicillin; E51.2 Wernicke's encephalopathy; F10.27 Alcohol dependence with alcohol-induced persisting dementia; B96.89 Other specified bacterial agents as the cause of diseases classified elsewhere; Z60.2 Problems related to living alone; N17.9 Acute kidney failure, unspecified; Z79.899 Other long term (current) drug therapy; F03.91 Unspecified dementia, unspecified severity, with behavioral disturbance; F32.9 Major depressive disorder, single episode, unspecified; R53.1 Weakness; I48.2 Chronic atrial fibrillation; F13.231 Sedative, hypnotic or anxiolytic dependence with withdrawal delirium; F10.231 Alcohol dependence with withdrawal delirium; Z88.8 Allergy status to other drugs, medicaments and biological substances; Z51.81 Encounter for therapeutic drug level monitoring; F10.288 Alcohol dependence with other alcohol-induced disorder; G93.41 Metabolic encephalopathy; N18.3 Chronic kidney disease, stage 3 (moderate); J96.01 Acute respiratory failure with hypoxia; I50.32 Chronic diastolic (congestive) heart failure

== ENCOUNTER 2019-05-02 17:10 | Inpatient (IN) ==
[2019-05-02] MEDS ORDERED: METOPROLOL TARTRATE 1 MG/ML VIAL IV STA ×2 (17:35→18:24)
[2019-05-02] MEDS ORDERED: METOPROLOL TARTRATE 50 MG TAB PO STA (17:35)
--- NOTE | 2019-05-02 17:48 | Emergency Department Note ---
Entered by Leanna Chacon acting as a scribe for History of Present Illness General Chief complaint: Edema To Extremity Stated complaint: EDEMA,AFIB, HEART FAILURE Time Seen by Provider: 05/02/19 17:13 Source: patient Mode of arrival: ambulatory Limitations: no limitations History of Present Illness Onset (ago): hour(s) 2 Radiation: non-radiation Pain Consistency: + constant Relieved By: + none Exacerbated By: + none Associated symptoms: no chest pain and no shortness of breath Treatments prior to arrival: none The patient is a 73 year old female who presents to the ED with complaints of swelling to her feet. She was just seen here in the ED and discharged home after her [facility] stated they felt comfortable taking her back. Her workup suggested bronchitis and she was found to have atrial fibrillation, which is a part of her history. She was asymptomatic at discharge. The patient went to a doctors appointment with her PCP, Dr. Mckinnon, after the ED visit and was referred back here to the ER as he felt she may be fluid overloaded. The patient has no current complaints and denies any chest pain or shortness of breath. Home Medications Home Medications Medication Instructions Recorded Confirmed Type acetaminophen [Tylenol Extra 500 mg PO TID PRN 05/02/19 05/02/19 History Strength] albuterol sulfate [Ventolin HFA] 2 puff INHALATION DAILY PRN 05/02/19 05/02/19 History apixaban [Eliquis] 5 mg PO BID 05/02/19 05/02/19 History biotin 1,000 mcg PO QAM 05/02/19 05/02/19 History clonazepam 0.5 mg PO BID 05/02/19 05/02/19 History clonazepam 1 mg PO BID 05/02/19 05/02/19 History docusate sodium 100 mg PO DAILY 05/02/19 05/02/19 History doxycycline hyclate 100 mg PO BID 5 Days #10 tab 05/02/19 05/02/19 Rx folic acid 1 mg PO QAM 05/02/19 05/02/19 History magnesium oxide [MagOx] 400 mg PO DAILY #7 tab 05/02/19 05/02/19 Rx metoprolol succinate 50 mg PO BID 05/02/19 05/02/19 History prednisone 40 mg PO DAILY 5 Days #10 tab 05/02/19 05/02/19 Rx quetiapine 100 mg PO QPM 05/02/19 05/02/19 History sennosides-docusate sodium 1 tab-cap PO DAILY PRN 05/02/19 05/02/19 History [Senna-S] sertraline 25 mg PO QAM 05/02/19 05/02/19 History sertraline 50 mg PO QAM 05/02/19 05/02/19 History thiamine HCl (vitamin B1) [Vitamin 100 mg PO DAILY 05/02/19 05/02/19 History B-1] Allergies Allergy/AdvReac Type Severity Reaction Status Date / Time Penicillins Allergy Unknown CAN'T Verified 05/02/19 12:59 REMEMBER MYCIN FAMILY DRUGS Allergy Unknown CAN'T Uncoded 05/02/19 12:59 REMEMBER-SEE COMMENT Past Med/Surg History Social History Preferred Language: Romansh Communication Ability: Effective Visual Impairment: No Limitations Hearing Ability: Normal Computer Architect Required: No Beliefs That Will Affect Care: None marital status: / Current Living Situation: Alone current occupational status: retired 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 Feels Safe at Home: Yes Smoking Status: Never smoker Tobacco Type: cigarettes ; Cigarettes Per Day: Half a pack per day ; Second Hand Exposure: Yes ; Hx Alcohol Use: Yes Alcohol type: hard liquor Alcohol Intake Frequency Comment: The patient states that she drinks a big glass of vodka Hx Substance Use: No Review of Systems See HPI for pertinent positives & negatives. and A total of 10 systems reviewed and were otherwise negative Physical Exam Vital Signs Vital Signs - 24 hr 05/02/19 17:13 05/02/19 17:49 05/02/19 17:52 Temperature 36.6 C Temperature Source Oral Pulse Rate 102 H 120 H Pulse Rate [Apical] 120 H Pulse Rhythm Regular Pulse Strength Normal Respiratory Rate 20 18 Respiratory Effort / Characteristics Non-Labored Non-Labored Respiratory Depth Normal Normal Respiratory Pattern Regular Blood Pressure 125/93 132/101 H Blood Pressure [Right Arm] 132/101 H Blood Pressure Mean 103 Blood Pressure Mean [Right Arm] 111 Pulse Oximetry 98 97 Oxygen Delivery Method Room Air Room Air Sepsis Recent Fever Within 48 Hours No Sepsis New/Unexplained Change in Mental Status No Sepsis Action Taken by Nursing No Action Required 05/02/19 17:55 05/02/19 18:38 05/02/19 18:42 Temperature Temperature Source Pulse Rate 113 H Pulse Rate [Apical] 111 H 113 H Pulse Rhythm Pulse Strength Respiratory Rate 18 18 Respiratory Effort / Characteristics Respiratory Depth Respiratory Pattern Blood Pressure 127/99 Blood Pressure [Right Arm] 148/117 H 127/99 Blood Pressure Mean Blood Pressure Mean [Right Arm] 127 108 Pulse Oximetry 97 96 Oxygen Delivery Method Room Air Room Air Sepsis Recent Fever Within 48 Hours Sepsis New/Unexplained Change in Mental Status Sepsis Action Taken by Nursing GENERAL: Patient is in no acute distress. HEENT: No acute trauma, normocephalic atraumatic, mucous membranes moist, no nasal congestion, no scleral icterus. NECK: No stridor, no adenopathy, no meningismus, trachea is midline. LUNGS: Clear to auscultation bilaterally, no wheeze, no rhonchi, breath sounds equal. HEART: Irregular rhythm, mild tachycardia, no murmurs. ABDOMEN: Soft, nontender, bowel sounds positive, no hernias, no peritonitis. EXTREMITIES: No cyanosis, mild bilateral pedal edema, full range of motion of all the joints without pain or difficulty, no signs for acute trauma. NEUROLOGIC: Patient is awake and alert, no acute motor or sensory deficits, no focal weakness. SKIN: No rash, no jaundice, no diaphoresis. Course Course 1720: The patient was evaluated in room C2 and a complete history and physical were performed. 1735: I discussed the patients case with [facility] Sheri Pand[facility] The patient will be further evaluated. Administered Medications Discontinued Medications Metoprolol Tartrate (Lopressor) 5 mg IV NOW STA Stop: 05/02/19 17:36 Last Admin: 05/02/19 17:52 Dose: 5 mg Documented by: [id number] Metoprolol Tartrate (Lopressor) 50 mg PO NOW STA Stop: 05/02/19 17:36 Last Admin: 05/02/19 17:56 Dose: 50 mg Documented by: [id number] Metoprolol Tartrate (Lopressor) 5 mg IV NOW STA Stop: 05/02/19 18:25 Last Admin: 05/02/19 18:42 Dose: 5 mg Documented by: [id number] Medical Decision Making Differential Diagnosis The differential diagnoses considered include CHF, rapid atrial fibrillation, anemia, pneumonia, electrolyte imbalance, fluid overload, dyshrythmia. Medical Records Attestation: I reviewed the patient's medical records. Home Medications Current Medication List: was personally reviewed by me Laboratory Data Attestation: I reviewed the patient's lab results. ECG Data Attestation: I personally reviewed and interpreted this ECG as follows: Indication: + other (afib, tachycardia) Rate (beats per minute): 128 Rhythm: + atrial fibrillation ECG Intervals/blocks: + Normal QT-c (478) ECG ST segments: + Nonspecific ST abnormalities; no ST elevation ECG Findings: no PVCs Blood Pressure Blood Pressure Findings: Elevated blood pressure Blood Pressure Disposition: Referred to patients primary care provider [facility] Narrative The patient was seen in this ED by me several hours ago. She was diagnosed with bronchitis. She had presented with some potential cyanosis concerns noted at the [facility]. Here, she was not hypoxic, she was not cyanotic. Her BNP was elevated, however, her chest x-ray did not show heart failure or pneumonia. She was in atrial fibrillation during her stay although she has a history of this. The patient was discharged with increased albuterol, doxycycline, a prednisone burst and a week's worth of magnesium. The [facility] felt comfortable with caring for her given her findings. The patient was seen at her doctor's office today after leaving this ER, there was concern for fluid overload and increased confusion. Hospitalization was felt warranted. The patient currently has no complaints. Her lungs are clear. She does have a mild tachycardia consistent with her A. fib. Her O2 saturation is 98%, she is afebrile. Initial blood pressure was 125/93. The patient's ECG does demonstrate A. fib. No acute ischemic change. As she is due for a dose of metoprolol, she was given 10 mg of Lopressor IV and 50 mg of oral metoprolol. Patient was placed on the panel monitor. I do not think repeat laboratory testing is indicated as she had a thorough work-up just a few hours ago. Patient will be hospitalized for her A. fib, wheezing and concerns for fluid overload. I did speak with case management. The on-call hospitalist was consulted. Impression & Plan Acute bronchitis, Atrial fibrillation, rapid, Failure of outpatient treatment, Shortness of breath Discharge Plan Visit Data Chief Complaint: Edema To Extremity Stated Complaint: EDEMA,AFIB, HEART FAILURE ED Provider: Allan Pruett Discharge Problem: Acute bronchitis, Atrial fibrillation, rapid, Failure of outpatient treatment, Shortness of breath Patient Disposition: Being Evaluated by Hospitalist Forms Stand Alone Forms: My [facility] Prescriptions Prescriptions: No Action metoprolol succinate 50 mg Tablet Extended Release 24 Hr 50 mg PO BID RF: 0 clonazepam 0.5 mg Tablet 0.5 mg PO BID RF: 0 sennosides-docusate sodium [Senna-S] 8.6-50 mg Tablet 1 tab-cap PO DAILY PRN (Reason: Constipation) RF: 0 clonazepam 1 mg Tablet 1 mg PO BID RF: 0 thiamine HCl (vitamin B1) [Vitamin B-1] 100 mg Tablet 100 mg PO DAILY RF: 0 quetiapine 100 mg Tablet 100 mg PO QPM RF: 0 acetaminophen [Tylenol Extra Strength] 500 mg Tablet 500 mg PO TID PRN (Reason: Pain) RF: 0 sertraline 25 mg Tablet 25 mg PO QAM RF: 0 folic acid 1 mg Tablet 1 mg PO QAM RF: 0 albuterol sulfate [Ventolin HFA] 90 mcg/actuation Hfa Aerosol Inhaler 2 puff INHALATION DAILY PRN (Reason: Shortness Of Breath) RF: 0 sertraline 50 mg Tablet 50 mg PO QAM RF: 0 docusate sodium 100 mg Tablet 100 mg PO DAILY RF: 0 Eliquis 5 mg Tablet 5 mg PO BID RF: 0 biotin 1,000 mcg Tablet,Chewable 1,000 mcg PO QAM RF: 0 doxycycline hyclate 100 mg tablet 100 mg PO BID 5 Days Qty: 10 RF: 0 prednisone 20 mg tablet 40 mg PO DAILY 5 Days Qty: 10 RF: 0 magnesium oxide [MagOx] 400 mg (241.3 mg magnesium) tablet 400 mg PO DAILY Qty: 7 RF: 0 Referrals Referrals: Nathan Alex [Primary Care Provider] - The naimaibe's documentation has been prepared under my direction and personally reviewed by me in its entirety. I confirm that the note above accurately reflects all work, treatment, procedures, and medical decision making performed by me.
[2019-05-02] MEDS ORDERED: DOCUSATE SODIUM/SENNA 50/8.6MG TAB PO PRN (19:26)
[2019-05-02] MEDS ORDERED: ACETAMINOPHEN 500 MG TAB PO PRN (19:26)
[2019-05-02] MEDS ORDERED: ACETAMINOPHEN 325 MG TAB PO PRN (19:41)
[2019-05-02] MEDS ORDERED: ZOLPIDEM TARTRATE 5 MG TAB PO PRN (19:41)
[2019-05-02] MEDS ORDERED: ALUMINUM/MAGNESIUM SUSP 30 ML UDC PO PRN (19:41)
[2019-05-02] MEDS ORDERED: ONDANSETRON INJ 2 MG/ML 2 ML VIAL IV PRN (19:41)
[2019-05-02] MEDS ORDERED: POLYETHYLENE (MIRALAX) 17 GM PACK PO PRN (19:41)
[2019-05-02] MEDS ORDERED: NITROGLYCERIN SL 0.4 MG/TAB TAB SL PRN (19:41)
[2019-05-02] MEDS ORDERED: MAGNESIUM HYDROXIDE SUSP 30 ML UDC PO PRN (19:41)
[2019-05-02] MEDS ORDERED: SODIUM CHLORIDE 0.9% 1000ML 1,000 ML IV SCH (19:45)
[2019-05-02] MEDS ORDERED: HEPARIN SOD 5,000 UNIT/0.5 ML VIAL SQ SCH (21:00)
--- NOTE | 2019-05-02 21:11 | History & Physical Report ---
Date of Service May 02, 2019 Assessment & Plan (1) Atrial fibrillation, rapid: Admit patient to telemetry Continue rate controlling medication, received 2 doses of Lopressor IV, current heart rate is in the range of 100, will give her her oral 50 mg metoprolol today, appears to be triggered by her Dehydration, will start gentle IV fluid hydration Continue Eliquis Ordered 2D echo Ordered occupational therapy supervisor consultation Ordered lipids panel and hemoglobin A1c to stratify risk factors Recommended patient to have sleep study as an outpatient rule out sleep apnea due to the strong association with A. fib order PT/OT (2) Chronic diastolic heart failure: We will start her on gentle IV fluid hydrationDespite of elevated BNP, did not clinically seem to be in acute failure Giving her elevated creatinine/BUN/ BUN and tachycardia discussed with her son and her [id number] who is in the medical field , stated that she was not drinking water at home,, I am in favor of slight dehydration. rather than CHF Will order 2D echo Check input/output Check daily weight (3) Acute kidney injury (JESS) with acute tubular necrosis (ATN): , likely multifactorial, ATN secondary to decreased oral intake, dehydration Keep her on normal saline 50 cc/h x 1500 cc, check BMP again tomorrow (4) Hypomagnesemia: Replaced, recheck in a.m. (5) Hypertension: Continue metoprolol History of Present Illness Primary Care Provider: Live Evans Allergies Allergy/AdvReac Type Severity Reaction Status Date / Time Penicillins Allergy Unknown CAN'T Verified 05/02/19 12:59 REMEMBER MYCIN FAMILY DRUGS Allergy Unknown CAN'T Uncoded 05/02/19 12:59 REMEMBER-SEE COMMENT Home Medications Home Medications Medication Instructions Recorded Confirmed Type acetaminophen [Tylenol Extra 500 mg PO TID PRN 05/02/19 05/02/19 History Strength] albuterol sulfate [Ventolin HFA] 2 puff INHALATION DAILY PRN 05/02/19 05/02/19 History apixaban [Eliquis] 5 mg PO BID 05/02/19 05/02/19 History biotin 1,000 mcg PO QAM 05/02/19 05/02/19 History clonazepam 0.5 mg PO BID 05/02/19 05/02/19 History clonazepam 1 mg PO BID 05/02/19 05/02/19 History docusate sodium 100 mg PO DAILY 05/02/19 05/02/19 History doxycycline hyclate 100 mg PO BID 5 Days #10 tab 05/02/19 05/02/19 Rx folic acid 1 mg PO QAM 05/02/19 05/02/19 History magnesium oxide [MagOx] 400 mg PO DAILY #7 tab 05/02/19 05/02/19 Rx metoprolol succinate 50 mg PO BID 05/02/19 05/02/19 History prednisone 40 mg PO DAILY 5 Days #10 tab 05/02/19 05/02/19 Rx quetiapine 100 mg PO QPM 05/02/19 05/02/19 History sennosides-docusate sodium 1 tab-cap PO DAILY PRN 05/02/19 05/02/19 History [Senna-S] sertraline 25 mg PO QAM 05/02/19 05/02/19 History sertraline 50 mg PO QAM 05/02/19 05/02/19 History thiamine HCl (vitamin B1) [Vitamin 100 mg PO DAILY 05/02/19 05/02/19 History B-1] Past Med/Surg History Social History Preferred Language: Maltese Communication Ability: Effective Visual Impairment: No Limitations Hearing Ability: Normal Early Childhood Required: No Beliefs That Will Affect Care: None marital status: / Current Living Situation: Alone current occupational status: retired 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 Feels Safe at Home: Yes Smoking Status: Never smoker Tobacco Type: cigarettes ; Cigarettes Per Day: Half a pack per day ; Second Hand Exposure: Yes ; Hx Alcohol Use: Yes Alcohol type: hard liquor Alcohol Intake Frequency Comment: The patient states that she drinks a big glass of vodka Hx Substance Use: No Results & Data Vital Signs (Past 12 Hours) Vital Signs Temp Pulse Pulse Resp BP BP Pulse Ox 05/02/19 20:01 103 H 23 132/106 H 90 05/02/19 19:45 105 H 22 123/96 96 05/02/19 19:30 105 H 25 H 137/100 95 05/02/19 19:15 110 H 25 H 135/96 92 05/02/19 19:04 109 H 27 H 138/99 94 05/02/19 18:42 113 H 127/99 05/02/19 18:38 113 H 18 127/99 96 05/02/19 17:55 111 H 18 148/117 H 97 05/02/19 17:52 120 H 132/101 H 05/02/19 17:49 120 H 18 132/101 H 97 05/02/19 17:13 36.6 C 102 H 20 125/93 98 Code Status & VTE Plan VTE Prophylaxis Plan VTE Prophylaxis will be ordered: Yes PG Care Time/CCT Total # of Minutes Spent Total Time Spent with Patient: Total time spent is greater than 50% in coordination of care (as documented) at patient's floor/unit and/or counseling patient:
[2019-05-02] MEDS ORDERED: MAGNESIUM SULFATE / D5W 1 GM/100 ML BAG IV ONE (22:07)
[2019-05-02] MEDS: METOPROLOL SUCC 50MG EXT REL TAB PO SCH (23:19)
[2019-05-02] MEDS: APIXABAN 5 MG TABLET PO SCH (23:19)
[2019-05-02] MEDS: QUETIAPINE FUMARATE 100 MG TABLET PO SCH (23:19)
[2019-05-02] MEDS: clonazePAM 1 MG TAB PO SCH (23:21)
[2019-05-02] MEDS ORDERED: Nursing to Pharmacy Communication ONE (23:58)
[2019-05-03 01:14] LABS: Hematocrit (blood only) 41.4 % (37-47); Mean Corpuscular Hemoglobin 27.5 pg (25-34); Mean Corpuscular Hgb Conc 31.4 g/dL (32-36); Mean Corpuscular Volume 87.7 fL (80-100); Mean Platelet Volume 9.7 fL (7.4-10.4); Platelet Count 145 K/uL (130-400); RDW Coefficient of Variation 19.6 % (11.5-14.5); RDW Standard Deviation 62.7 fL (36.4-46.3); Red Blood Count 4.72 M/uL (4.2-5.4); White Blood Count 2.34 K/uL (4.8-10.8)
[2019-05-03 01:29] LABS: BUN Creatinine Ratio 18.7 (10-20); Blood Urea Nitrogen 28 mg/dl (7-18); Calcium 8.5 mg/dl (8.5-10.1); Carbon Dioxide 19 mmol/L (21-32); Chloride 107 mmol/L (98-107); Creatinine Clr Calc Pharmacy 31.3 ml/min; Est GFR (African American) 39.9; Est GFR (Non-African American) 34.4; Glucose 164 mg/dl (70-99); Magnesium 1.8 mg/dl (1.8-2.4); Potassium 4.1 mmol/L (3.5-5.1); Sodium 138 mmol/L (136-145)
[2019-05-03 01:34] LABS: Troponin I < 0.015 ng/ml (0-0.045)
[2019-05-03 08:09] LABS: NT Pro B Type Natriuretic Pept > 35000 pg/ml (0-900); Troponin I < 0.015 ng/ml (0-0.045)
[2019-05-03] MEDS ORDERED: SERTRALINE HCL 50 MG TABLET PO SCH (09:00)
--- NOTE | 2019-05-03 09:15 | Cardiology Consultation ---
Date of Consultation May 03, 2019 Assessment & Plan (1) Acute diastolic CHF (congestive heart failure): (2) Atrial fibrillation, rapid: (3) CKD (chronic kidney disease) stage 3, GFR 30-59 ml/min: ASSESSMENT/PLAN: 1. Acute diastolic CHF: She appears hypervolemic both based on her symptoms and on examination. Laboratory data would be supportive of this as well. Recommend Lasix 40 mg IV daily for now. Would try to diurese at least 1 L negative today. Monitor eyes and nose. Daily weights. Low-sodium diet, less than 2000 mg daily. If she is not reaching her goal, would consider another dose of Lasix this afternoon and will leave this at the discretion of the hospitalist service when they evaluate her later today. She will likely require oral diuretic on discharge. Echocardiogram. 2. Atrial fibrillation with rapid ventricular response: She has permanent atrial fibrillation and has generally been asymptomatic with it. Heart rate has been elevated. Increase metoprolol to 75 mg twice daily for now. Current heart rate is acceptable. Continue anticoagulation for stroke risk reduction. 3. CKD: Monitor renal function carefully while diuresing. Basic metabolic panel ordered to be done tomorrow morning. 4. Disposition: Plan of care discussed with Dr. Vickers, primary hospitalist. She was also signed out to Dr. Reddy who will be available over the weekend for any questions or concerns. Thank you for allowing me to participate in the care of your patient. Please call for any other questions or concerns. Sincerely, Savage Marcos M.D. History of Present Illness Reason for Consultation: AFib with RVR Requesting Physician: Dr. Michael Pandya Attending Physician: Zeke Vickers MD History of Present Illness Mrs. Bradley is a 73-year-old female with a history significant for permanent atrial fibrillation, hypertension, alcohol abuse, tobacco abuse, and nonsustained atrial tachycardia. She is a poor historian. She has had the following studies/procedures: 1. Echo 04/06/2018: Normal LV size, wall motion, systolic function. EF 65-70%. Mild to moderate LVH. Type 1 diastolic dysfunction. Mild MR. RVSP 37. 2. Holter 06/01/2018: Sinus rhythm with average heart rate 85 bpm, 63-127 bpm. Occasional PACs and PVCs. One ventricular triplet. Nonsustained atrial tachycardia up to 14 beats. No diary. She was alone in her hospital room. She is a poor historian and recognizes that her memory is not what it used to be. She states that she came to the hospital because she felt exhausted and was short of breath. She was seen by her PCP and nurses at [facility]" (which is presumably [facility]). She states that her PCP in nurses could not find her blood pressure. She states that she is short of breath with any exertion. She feels short of breath even while laying in bed. She has orthopnea, paroxysmal nocturnal dyspnea, and a cough occasionally productive of clear sputum. She states that her legs have become more swollen recently. Nursing notes also document that her son was con cerned about her leg swelling. She admits that she does not maintain a low- sodium diet. She states that her medications are administered to her by her [facility]. She recalls hearing a gurgling sound in her chest. She also reports palpitations describing a racing and pounding sensation. This has improved since hospitalization. She was originally felt to be dehydrated by admitting service and was given gentle hydration, which was later discontinued overnight by the night staff. She denies syncope, chest pain, fevers, chills, abdominal pain, nausea, vomiting, hematochezia, hematuria, melena, or other bleeding. Review of systems: As above. Review of systems otherwise negative/unremarkable. Social history: She was a chronic smoker but states that she quit smoking (2019). She is an alcoholic but has been sober since earlier 2018. She had admitted in the past to consuming large amounts of alcohol, notably vodka with at least 4 shots per day divided into 2 drinks. In the past she has admitted to consuming up to a "handle" of vodka per week. She is a since 2014. She has 1 son. Her [id number] is a nurse. No grandchildren. She was alone in her hospital room. Family history: No known premature CAD. Allergies Allergy/AdvReac Type Severity Reaction Status Date / Time Penicillins Allergy Unknown CAN'T Verified 05/02/19 12:59 REMEMBER [facility] [employer] Allergy Unknown CAN'T Uncoded 05/02/19 12:59 REMEMBER-SEE COMMENT Home Medications Home Medications Medication Instructions Recorded Confirmed Type acetaminophen [Tylenol Extra 500 mg PO TID PRN 05/02/19 05/02/19 History Strength] albuterol sulfate [Ventolin HFA] 2 puff INHALATION DAILY PRN 05/02/19 05/02/19 History apixaban [Eliquis] 5 mg PO BID 05/02/19 05/02/19 History biotin 1,000 mcg PO QAM 05/02/19 05/02/19 History clonazepam 0.5 mg PO BID 05/02/19 05/02/19 History clonazepam 1 mg PO BID 05/02/19 05/02/19 History docusate sodium 100 mg PO DAILY 05/02/19 05/02/19 History doxycycline hyclate 100 mg PO BID 5 Days #10 tab 05/02/19 05/02/19 Rx folic acid 1 mg PO QAM 05/02/19 05/02/19 History magnesium oxide [MagOx] 400 mg PO DAILY #7 tab 05/02/19 05/02/19 Rx metoprolol succinate 50 mg PO BID 05/02/19 05/02/19 History prednisone 40 mg PO DAILY 5 Days #10 tab 05/02/19 05/02/19 Rx quetiapine 100 mg PO QPM 05/02/19 05/02/19 History sennosides-docusate sodium 1 tab-cap PO DAILY PRN 05/02/19 05/02/19 History [Senna-S] sertraline 25 mg PO QAM 05/02/19 05/02/19 History sertraline 50 mg PO QAM 05/02/19 05/02/19 History thiamine HCl (vitamin B1) [Vitamin 100 mg PO DAILY 05/02/19 05/02/19 History B-1] Patient History Medical History Chronic alcohol abuse Depression Hx of falling Hypertension (Chronic) Insomnia Pneumonia (Resolved) Tobacco abuse Social History Preferred Language: Georgian Communication Ability: Effective Visual Impairment: No Limitations Hearing Ability: Normal Regulatory Compliance Engineer Required: No Beliefs That Will Affect Care: None marital status: / Current Living Situation: Family Current Living Situation Comment: son and [id number] current occupational status: retired 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 Feels Safe at Home: Yes Smoking Status: Former smoker Tobacco Type: cigarettes ; Cigarettes Per Day: Half a pack per day ; Second Hand Exposure: No ; Hx Alcohol Use: No Hx Substance Use: No Physical Exam Physical Exam: Gen.: No acute distress. Alert and oriented to self, month and place. She did not know the year. HEENT: Anicteric sclera. Neck: Elevated JVD. Hepatic jugular reflux noted. No bruits. Normal carotid upstrokes bilaterally. Cardiac: PMI was not palpable. No ventricular heave. Irregularly irregular. Normal S1-S2. 1/6 systolic murmur. No rubs, or gallops. Pulmonary: Decreased breath sounds at the bases. Mild bilateral rales with occasional expiratory wheeze. Abdomen: Soft, nontender, nondistended, with normoactive bowel sounds. No bruits noted. Extremities: 2+ radial pulses bilaterally. 1+ posterior tibialis pulses bilaterally. Nonpitting lower extremity edema with trace pitting edema bilateral lower extremities. No cyanosis. Psychiatric: Affect appears appropriate. Results & Data Vital Signs (Past 12 Hours) Vital Signs Temp Pulse Pulse Pulse Resp BP BP 05/03/19 07:50 36.7 C 62 20 129/95 05/03/19 03:20 36.3 C L 97 H 20 134/100 05/03/19 00:07 36.8 C 87 21 136/92 05/02/19 21:38 36.1 C L 128 H 20 135/101 H 05/02/19 21:09 101 H 21 140/106 H Pulse Ox 05/03/19 07:50 96 05/03/19 03:20 95 05/03/19 00:07 100 05/02/19 21:38 93 05/02/19 21:09 94 Intake & Output 05/01/19 05/02/19 05/03/19 05/04/19 06:59 06:59 06:59 06:59 Intake Total 142.5 / 142.5 Balance 142.5 / 142.5 Weight 70.9 kg Laboratory Results Laboratory Results - last 24 hr 05/03/19 05/03/19 05/03/19 00:55 00:55 07:18 WBC 2.34 L RBC 4.72 Hgb 13.0 Hct 41.4 MCV 87.7 MCH 27.5 MCHC 31.4 L RDW Std Deviation 62.7 H RDW Coeff of Mario 19.6 H Plt Count 145 MPV 9.7 Sodium 138 Potassium 4.1 Chloride 107 Carbon Dioxide 19 L Anion Gap 12.0 H BUN 28 H Creatinine 1.51 H Est Cr Clr Drug Dosing 31.3 Est GFR ( Amer) 39.9 Est GFR (Non-Af Amer) 34.4 BUN/Creatinine Ratio 18.7 Glucose 164 H Calcium 8.5 Magnesium 1.8 Troponin I < 0.015 < 0.015 NT-Pro-B Natriuret Pep > 08987 H Diagnostic Findings ECG personally reviewed: ECG 05/02/2019: AFib with RVR and PVC versus aberrantly conducted complex. 128 bpm. Possible septal infarct. Nonspecific T-wave abnormality. Telemetry personally reviewed: Atrial fibrillation, often with rapid ventricular response. Chest x-ray 05/02/2019 personally reviewed: Blunting of the left lateral costophrenic angle. Prior echo report from 2018 reviewed as noted above. Medications Administered Current Inpatient Medications Acetaminophen (Tylenol) 650 mg PO Q4H PRN PRN Reason: Pain or Fever Stop: 06/01/19 19:40 Al Hydrox/Mg Hydrox/Simethicone (Maalox) 15 ml PO Q4H PRN PRN Reason: Dyspepsia Stop: 06/01/19 19:40 Albuterol (Ventolin Hfa) 2 puffs INH DAILY PRN PRN Reason: Shortness Of Breath Stop: 06/01/19 19:25 Apixaban (Eliquis) 5 mg PO BID [facility] Stop: 06/01/19 20:59 Last Admin: 05/02/19 23:19 Dose: 5 mg Documented by: Clonazepam (Klonopin) 0.5 mg PO BID@1200,1600 [facility] Stop: 06/02/19 11:59 Clonazepam (Klonopin) 1 mg PO BID@0800,2000 [facility] Stop: 06/01/19 20:59 Last Admin: 05/02/19 23:21 Dose: 1 mg Documented by: Docusate Sodium (Colace) 100 mg PO DAILY [facility] Stop: 06/02/19 08:59 Folic Acid (Folvite) 1 mg PO QAM [facility] Stop: 06/02/19 08:59 Magnesium Hydroxide (Milk Of Magnesia) 30 ml PO Q12H PRN PRN Reason: Constipation Stop: 06/01/19 19:40 Magnesium Oxide (Mag-Ox) 400 mg PO DAILY [facility] Stop: 06/02/19 08:59 Metoprolol Succinate (Toprol Xl) 50 mg PO BID [facility] Stop: 06/01/19 20:59 Last Admin: 05/02/19 23:19 Dose: 50 mg Documented by: Nitroglycerin (Nitrostat) 0.4 mg SL UD PRN PRN Reason: Chest Pain Stop: 06/01/19 19:40 Ondansetron HCl (Zofran) 4 mg IV Q6H PRN PRN Reason: Nausea Stop: 06/01/19 19:40 Polyethylene Glycol (Miralax Powder Packet) 17 gm PO DAILY PRN PRN Reason: Constipation Stop: 06/01/19 19:40 Quetiapine Fumarate (Seroquel) 100 mg PO QPM [facility] Stop: 06/01/19 20:59 Last Admin: 05/02/19 23:19 Dose: 100 mg Documented by: Senna/Docusate Sodium (Senokot S) 1 tab PO DAILY PRN PRN Reason: Constipation Stop: 06/01/19 19:25 Sertraline HCl (Zoloft) 75 mg PO QAM [facility] Stop: 06/02/19 08:59 Thiamine HCl (Vitamin B-1) 100 mg PO DAILY [facility] Stop: 06/02/19 08:59 PG Care Time/CCT Total # of Minutes Spent Total Time Spent with Patient: Total time spent is greater than 50% in coordination of care (as documented) at patient's floor/unit and/or counseling patient:
[2019-05-03] MEDS: APIXABAN 5 MG TABLET PO SCH ×2 (09:34→20:07)
[2019-05-03] MEDS: DOCUSATE SODIUM 100 MG CAP PO SCH (09:34)
[2019-05-03] MEDS: SERTRALINE HCL 50 MG TABLET PO SCH (09:34)
[2019-05-03] MEDS: FOLIC ACID 1 MG TAB PO SCH (09:34)
[2019-05-03] MEDS: MAGNESIUM OXIDE 400 MG TAB PO SCH (09:34)
[2019-05-03] MEDS: METOPROLOL SUCC 25MG EXT REL TAB PO SCH ×2 (09:34→20:07)
[2019-05-03] MEDS: THIAMINE HCL 100 MG TAB PO SCH (09:34)
[2019-05-03] MEDS: FUROSEMIDE 40 MG in SYRINGE 0 ML IV SCH (09:34)
[2019-05-03] MEDS: clonazePAM 1 MG TAB PO SCH (09:44)
[2019-05-03] MEDS: METOPROLOL SUCC 50MG EXT REL TAB PO SCH (10:01)
[2019-05-03] MEDS ORDERED: clonazePAM 0.5 MG TAB PO SCH (12:00)
[2019-05-03] MEDS: clonazePAM 0.5 MG TAB PO SCH ×2 (17:28→20:06)
[2019-05-03] MEDS: QUETIAPINE FUMARATE 100 MG TABLET PO SCH (20:07)
[2019-05-04] MEDS: ALBUTEROL HFA 8 GM INHALER INH PRN (05:33)
[2019-05-04] MEDS: FUROSEMIDE 40 MG in SYRINGE 0 ML IV SCH (08:19)
[2019-05-04] MEDS: clonazePAM 0.5 MG TAB PO SCH ×4 (08:19→20:02)
[2019-05-04] MEDS: MAGNESIUM OXIDE 400 MG TAB PO SCH (08:20)
[2019-05-04] MEDS: APIXABAN 5 MG TABLET PO SCH ×2 (08:20→21:43)
[2019-05-04] MEDS: DOCUSATE SODIUM 100 MG CAP PO SCH (08:20)
[2019-05-04] MEDS: METOPROLOL SUCC 25MG EXT REL TAB PO SCH (08:20)
[2019-05-04] MEDS: SERTRALINE HCL 50 MG TABLET PO SCH (08:20)
[2019-05-04] MEDS: FOLIC ACID 1 MG TAB PO SCH (08:20)
[2019-05-04] MEDS: THIAMINE HCL 100 MG TAB PO SCH (08:20)
[2019-05-04 09:48] LABS: Basophils # (auto) 0.02 K/uL (0-0.2); Basophils % (auto) 0.4 %; Eosinophils # (auto) 0.17 K/uL (0-0.5); Eosinophils % (auto) 3.8 %; Hematocrit (blood only) 44.3 % (37-47); Hemoglobin 13.5 g/dL (12.0-16.0); Lymphocytes % (auto) 13.5 %; Mean Corpuscular Hemoglobin 26.9 pg (25-34); Mean Corpuscular Hgb Conc 30.5 g/dL (32-36); Mean Corpuscular Volume 88.2 fL (80-100); Monocytes % (auto) 11.2 %; Neutrophils # (auto) 3.17 K/uL (1.4-6.5); Neutrophils % (auto) 71.1 %; Platelet Count 154 K/uL (130-400); RDW Coefficient of Variation 20.1 % (11.5-14.5); RDW Standard Deviation 63.9 fL (36.4-46.3); Red Blood Count 5.02 M/uL (4.2-5.4); White Blood Count 4.46 K/uL (4.8-10.8)
[2019-05-04 10:05] LABS: BUN Creatinine Ratio 20.2 (10-20); Calcium 9.2 mg/dl (8.5-10.1); Creatinine Clr Calc Pharmacy 27.7 ml/min; Est GFR (African American) 34.6; Est GFR (Non-African American) 29.8; Potassium 3.9 mmol/L (3.5-5.1)
[2019-05-04 10:17] LABS: Anisocytosis Present; Toxic Vacuolation 1+
--- NOTE | 2019-05-04 17:02 | Hospitalist Progress Note ---
Date of Service May 03, 2019 Assessment & Plan (1) Atrial fibrillation, rapid: Discussed with Dr. Marcos and metoprolol increased to 75 mg twice daily. Continue Eliquis Echocardiogram - LVEF 45-50% with moderate mitral regurgitation Consider sleep study as outpatient (2) JESS (acute kidney injury): Unclear if hypoperfusion due to hyper or hypovolemia. Initially given IV fluids by admitting doctor and creatinine improved from 1.59 to 1.51. Suspected to be hypervolemic by cardiology and will continue to monitor after Lasix given. (3) Chronic diastolic heart failure: Elevated BNP. Difficult to measure input and output without Mora catheter although I do not feel this is necessary at this time. Discussed with Dr. Marcos and will give Lasix 40 mg daily. (4) Hypomagnesemia: Replaced, recheck in a.m. (5) Hypertension: Continue metoprolol (6) Dementia: Monitor for delirium. Suspected secondary to alcohol use. (7) Acute respiratory failure with hypoxia: Unclear current etiology of hypoxia. Suspect just due to atrial fibrillation with rapid rate. We will continue to wean to aim O2 > 94% (8) Anxiety: Significant clonazepam use causing sedation. Will decrease dose in half and monitor patient's anxiety levels. (9) DVT prophylaxis: Continue Eliquis twice daily. Subjective Patient lying in bed. Appears disheveled and lying in bed. Unable to tell me any history of when she ended up in hospital. She mainly tells me just how anxious she is and she feels drowsy. She is very concerned about her appearance and was afraid she was not ready for me to talk to her. Review of Systems Review of Systems: Unobtainable due to cognitive status Physical Exam Constitutional: + not well nourished and no acute distress Eyes: + anicteric sclerae; normal pupil size ENMT: Ears: no external ear abnormality Nose: no external nose abnormality Mouth: + dry oral mucous membranes Neck: normal visual inspection and trachea midline Respiratory: normal respiratory effort, lungs clear to auscultation Cardiovascular: Rate/Rhythm: + tachycardic and + irregularly irregular Heart Sounds: no murmur Extremities: normal capillary refill Gastrointestinal (Abdomen): normal bowel sounds, soft, nontender, no hepatosplenomegaly Musculoskeletal: no cyanosis or clubbing, extremities motor strength 5/5 (Grossly normal) Skin: no rashes, warm and dry Neurologic: moves all extremities, awake and + confused Motor/Sensory: no tremor and no pronator drift Psychiatric: Orientation: alert; + not oriented x 3 Eye Contact: + poor eye contact Motor Behavior: no abnormal motor movements Affect: + anxious affect Mood: + anxious mood Thought Process: + flight of ideas and + incoherent thought process Thought Content: + preoccupation; no delusions Hallucinations: no auditory hallucinations and no visual hallucinations Cognition: + recent memory not intact and + remote memory not intact Insight: + poor insight Results & Data Vital Signs (Past 12 Hours) Vital Signs Temp Pulse Resp BP Pulse Ox 05/04/19 15:18 37.0 C 75 22 144/98 H 95 05/04/19 12:32 110 H 18 119/84 92 05/04/19 07:43 36.5 C 114 H 18 140/106 H PG Care Time/CCT Total # of Minutes Spent Total Time Spent with Patient: Total time spent is greater than 50% in coordination of care (as documented) at patient's floor/unit and/or counseling patient:
[2019-05-04] MEDS ORDERED: METOPROLOL TARTRATE 1 MG/ML VIAL IV STA (18:32)
[2019-05-04] MEDS ORDERED: LACTATED RINGER'S 500 ML IV ONE (18:33)
--- NOTE | 2019-05-04 20:47 | Hospitalist Progress Note ---
Date of Service May 04, 2019 Assessment & Plan (1) Atrial fibrillation, rapid: Worsening right despite metoprolol increased. Suspect due to dehydration from Lasix given. Will try to lie down by increasing metoprolol however suspect this is mainly being driven as she is dry and will give intermittent bolus IV fluids to help reduce this. Continue Eliquis Echocardiogram - LVEF 45-50% with moderate mitral regurgitation Consider sleep study as outpatient (2) Chronic diastolic heart failure: Elevated BNP. However creatinine worsened with IV Lasix. Additional dose given today prior to labs coming back. No significant pulmonary edema on chest x-ray. Increased rapid ventricular rates and atrial fibrillation suggestive of dehydrated state. Improvement with IV fluids initially. Will give LR bolus 500 ml now. (3) JESS (acute kidney injury): Clinical picture suspect that she is dehydrated at this time with elevated BUN, worsening creatinine with Lasix use, no Lasix use at home, worsening tach ycardia with Lasix. Rx Lactated Ringer's 500ml bolus ordered. (4) Hypomagnesemia: Mg 1.8 yesterday. Will repeat in AM and Q2D. (5) Hypertension: Continue metoprolol (6) Dementia: Monitor for delirium. Suspected secondary to alcohol use. Seroquel 100 mg p.o. at night (7) Acute respiratory failure with hypoxia: Suspected due to atrial fibrillation with rapid rate. No significant pulmonary edema on chest x-ray or admission however will likely repeat tomorrow since we are changing course and giving fluids at this time. We will continue to wean to aim O2 > 94% (8) Anxiety: Significant clonazepam use causing sedation. Decreased dose in half yesterday with no substantial increase in her symptoms. Will consult psychiatry any optimization while hospitalized as an unclear why she requires such significant quantities of psychiatric medications. (9) DVT prophylaxis: Continue Eliquis twice daily. Subjective Patient lying in bed. Pleasantly confused. Does not want to talk about her medical conditions at this time. However she does deny that she is in any chest pain or significant shortness of breath. Review of Systems Review of Systems: Unobtainable due to cognitive status Physical Exam Constitutional: + ill appearing (Chronically) and + disheveled; + not well nourished and no acute distress Eyes: + anicteric sclerae; normal pupil size ENMT: Ears: no external ear abnormality Nose: no external nose abnormality Mouth: + dry oral mucous membranes Neck: normal visual inspection and trachea midline Respiratory: normal respiratory effort, lungs clear to auscultation Cardiovascular: Rate/Rhythm: + tachycardic and + irregularly irregular Heart Sounds: no murmur Extremities: normal capillary refill and + pedal edema (Trace bilateral) Gastrointestinal (Abdomen): normal bowel sounds, soft, nontender, no hepatosplenomegaly Skin: no rashes, warm and dry Neurologic: moves all extremities, awake and + confused Motor/Sensory: no tremor and no pronator drift Psychiatric: Orientation: alert; + not oriented x 3 Eye Contact: + fair eye contact Motor Behavior: no abnormal motor movements Affect: euthymic affect Mood: + anxious mood Thought Process: + tangential thought process Thought Content: + preoccupation; no delusions Hallucinations: no auditory hallucinations and no visual hallucinations Cognition: + recent memory not intact and + remote memory not intact Insight: + poor insight Results & Data Vital Signs (Past 12 Hours) Vital Signs Temp Pulse Pulse Resp BP BP Pulse Ox 05/04/19 19:49 95 H 127/88 05/04/19 19:25 36.7 C 95 H 20 127/88 100 05/04/19 15:18 37.0 C 75 22 144/98 H 95 05/04/19 12:32 110 H 18 119/84 92 PG Care Time/CCT Total # of Minutes Spent Total Time Spent with Patient: Total time spent is greater than 50% in coordination of care (as documented) at patient's floor/unit and/or counseling patient: (1) Hypertension Hypertension type: essential hypertension Qualified Code(s): I10 - Essential (primary) hypertension (2) Dementia Dementia type: unspecified type Dementia behavioral disturbance: with behavioral disturbance Qualified Code(s): F03.91 - Unspecified dementia with behavioral disturbance
[2019-05-04] MEDS: METOPROLOL SUCC 50MG EXT REL TAB PO SCH (21:42)
[2019-05-04] MEDS: QUETIAPINE FUMARATE 100 MG TABLET PO SCH (21:43)
[2019-05-05] MEDS ORDERED: BENZONATATE 100 MG CAPSULE PO PRN (02:29)
[2019-05-05 07:23] LABS: Basophils # (auto) 0.03 K/uL (0-0.2); Basophils % (auto) 0.7 %; Eosinophils # (auto) 0.39 K/uL (0-0.5); Eosinophils % (auto) 8.9 %; Hematocrit (blood only) 42.8 % (37-47); Hemoglobin 13.2 g/dL (12.0-16.0); Immature Granulocytes # (auto) 0.01 K/uL (0.00-0.02); Immature Granulocytes % (auto) 0.2 %; Lymphocytes # (auto) 0.96 K/uL (1.2-3.4); Lymphocytes % (auto) 21.9 %; Mean Corpuscular Hemoglobin 27.7 pg (25-34); Mean Corpuscular Hgb Conc 30.8 g/dL (32-36); Mean Corpuscular Volume 89.9 fL (80-100); Mean Platelet Volume 9.7 fL (7.4-10.4); Monocytes % (auto) 13.7 %; Neutrophils # (auto) 2.39 K/uL (1.4-6.5); Neutrophils % (auto) 54.6 %; Platelet Count 145 K/uL (130-400); RDW Standard Deviation 64.9 fL (36.4-46.3); Red Blood Count 4.76 M/uL (4.2-5.4); White Blood Count 4.38 K/uL (4.8-10.8)
[2019-05-05 07:48] LABS: Anisocytosis Present; Polychromasia 1+; Spherocytes 1+
[2019-05-05 08:00] LABS: BUN Creatinine Ratio 21.8 (10-20); Calcium 8.4 mg/dl (8.5-10.1); Est GFR (African American) 42.6; Est GFR (Non-African American) 36.8; Magnesium 1.4 mg/dl (1.8-2.4); Potassium 3.6 mmol/L (3.5-5.1)
[2019-05-05] MEDS: DOCUSATE SODIUM 100 MG CAP PO SCH (08:34)
[2019-05-05] MEDS: APIXABAN 5 MG TABLET PO SCH ×2 (08:34→20:27)
[2019-05-05] MEDS: THIAMINE HCL 100 MG TAB PO SCH ×2 (08:35→08:37)
[2019-05-05] MEDS: FOLIC ACID 1 MG TAB PO SCH (08:35)
[2019-05-05] MEDS: METOPROLOL SUCC 50MG EXT REL TAB PO SCH ×2 (08:35→20:27)
[2019-05-05] MEDS: SERTRALINE HCL 50 MG TABLET PO SCH (08:36)
[2019-05-05] MEDS: clonazePAM 0.5 MG TAB PO SCH ×4 (08:38→20:27)
[2019-05-05] MEDS: MAGNESIUM OXIDE 400 MG TAB PO SCH (09:04)
[2019-05-05] MEDS: MAGNESIUM SULFATE / D5W 1 GM/100 ML BAG IV SCH ×2 (09:15→09:46)
[2019-05-05] MEDS ORDERED: LACTATED RINGER'S 500 ML IV ONE (12:21)
--- NOTE | 2019-05-05 12:35 | Psychiatric Consultation ---
Date of Consultation May 05, 2019 Impression / Recommendations (1) Anxiety: Patient is a poor historian and I have limited information about past diagnoses and treatment. I will ask the liaison nurse to contact [facility] to clarify who her prescribing physician is, so that we can contact that individual tomorrow and clarify her treatment history. In the meantime, it is reasonable to continue sertraline and quetiapine. -Spoke with Dr. Vickers regarding her benzodiazepines, as when she was here in the spring, she was tapered off benzodiazepines and sent to inpatient alcohol rehab. Given her repeated episodes of confusion and substance abuse history, ideally she would be off benzodiazepines. Agree with decreasing dose due to sedation, and we will clarify her home medication list as above. Present on Admission?: Yes (2) Metabolic encephalopathy: Medical treatment of underlying conditions per primary team. AMS is acute on chronic, likely multifactorial, given concern for dementia due to chronic alcohol use, Present on Admission?: Yes Psych History Chief Complaint " Since I last my , that is what this is about". History of Present Illness Patient is known to me from a previous consultation in July 2018, when she was admitted with altered mental status due to alcohol withdrawal. She was tapered off alprazolam and discharged to inpatient substance abuse treatment. She presented to the ER 05/02/2019 from [facility] due to complaints of hand and foot swelling; assisted living staff were contacted and reported that the patient is confused at baseline. She was diagnosed with acute bronchitis and started on antibiotics and prednisone, and discharged home. She returned to the ER later that day after following up with her PCP due to concerns that she was fluid overloaded, was in A. fib, and was admitted to the hospitalist service. Cardiology has been consulted and she had an echo 05/03/2019. She was continued on her home medications, including clonazepam 0.25 mg q. 1200 and 1600 hours and 0.5 mg q. 0800 and 2000 hours and sertraline 75 mg every morning. Yesterday, clonazepam doses were decreased due to concerns for oversedation. On my assessment, the patient is unable to explain why she is in the hospital, what medications she takes, what medical problems she has, or where she lives. She later states she lives alone, and then says she lives with her brother and [id number], but could live alone if she wanted to. She talks in a rambling and nonsensical manner, stating "something like this happened a few years ago, they got me, were going to take pictures from going to college to graduation, to see what he looked like." She denies symptoms consistent with depression, ele, and psychosis, but endorses anxiety related to "how will I get out of here? How will I get home?" She claims she has not drank alcohol in 3-1/2 years, but was just seen in this facility earlier this year for alcohol withdrawal. Per family's report, she has been sober since that time. Allergies Allergy/AdvReac Type Severity Reaction Status Date / Time Penicillins Allergy Unknown CAN'T Verified 05/02/19 12:59 REMEMBER [facility] Allergy Unknown CAN'T Uncoded 05/02/19 12:59 REMEMBER-SEE COMMENT Home Medications Home Medications Medication Instructions Recorded Confirmed Type acetaminophen [Tylenol Extra 500 mg PO TID PRN 05/02/19 05/02/19 History Strength] albuterol sulfate [Ventolin HFA] 2 puff INHALATION DAILY PRN 05/02/19 05/02/19 History apixaban [Eliquis] 5 mg PO BID 05/02/19 05/02/19 History biotin 1,000 mcg PO QAM 05/02/19 05/02/19 History clonazepam 0.5 mg PO BID 05/02/19 05/02/19 History clonazepam 1 mg PO BID 05/02/19 05/02/19 History docusate sodium 100 mg PO DAILY 05/02/19 05/02/19 History doxycycline hyclate 100 mg PO BID 5 Days #10 tab 05/02/19 05/02/19 Rx folic acid 1 mg PO QAM 05/02/19 05/02/19 History magnesium oxide [MagOx] 400 mg PO DAILY #7 tab 05/02/19 05/02/19 Rx metoprolol succinate 50 mg PO BID 05/02/19 05/02/19 History prednisone 40 mg PO DAILY 5 Days #10 tab 05/02/19 05/02/19 Rx quetiapine 100 mg PO QPM 05/02/19 05/02/19 History sennosides-docusate sodium 1 tab-cap PO DAILY PRN 05/02/19 05/02/19 History [Senna-S] sertraline 25 mg PO QAM 05/02/19 05/02/19 History sertraline 50 mg PO QAM 05/02/19 05/02/19 History thiamine HCl (vitamin B1) [Vitamin 100 mg PO DAILY 05/02/19 05/02/19 History B-1] Personal History Beliefs That Will Affect Care: None Patient History Medical History Chronic alcohol abuse Depression Hx of falling Hypertension (Chronic) Insomnia Pneumonia (Resolved) Tobacco abuse Social History Preferred Language: Turkmen Communication Ability: Effective Visual Impairment: No Limitations Hearing Ability: Normal Logger Driving Horses Required: No Beliefs That Will Affect Care: None marital status: / Current Living Situation: Family Current Living Situation Comment: son and [id number] current occupational status: retired 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 Feels Safe at Home: Yes Smoking Status: Former smoker Tobacco Type: cigarettes ; Cigarettes Per Day: Half a pack per day ; Second Hand Exposure: No ; Hx Alcohol Use: No Hx Substance Use: No Physical Exam Psychiatric: Orientation: alert, oriented to person and oriented to place; + not oriented to time Overweight, dressed in hospital gown. Seated in bed with O2 nasal cannula in place. Eye Contact: good eye contact Restless, shifting frequently in bed Affect: + anxious affect "Okay." Thought Process: + tangential thought process and + incoherent thought process Suicidal Thoughts: denies suicidal thoughts Homicidal Thoughts: denies homicidal thoughts Hallucinations: no auditory hallucinations and no visual hallucinations Cognition: + recent memory not intact, + remote memory not intact and + attention not intact Insight: + impaired insight Judgement: + impaired judgement Vital Signs (Past 24 Hours): Last Vital Signs Temp 36.7 C 05/05/19 11:57 Pulse 71 05/05/19 11:57 Resp 18 05/05/19 11:57 BP 133/91 05/05/19 11:57 Pulse Ox 94 05/05/19 11:57 Review of Systems All systems reviewed & are unremarkable except as noted in HPI & below cough Results & Data Medications Administered Albuterol (Ventolin Hfa) 2 puffs INH DAILY PRN PRN Reason: Shortness Of Breath Stop: 06/01/19 19:25 Last Admin: 05/04/19 05:33 Dose: 2 puffs Documented by: [id number] Apixaban (Eliquis) 5 mg PO BID [facility] Stop: 06/01/19 20:59 Last Admin: 05/05/19 08:34 Dose: 5 mg Documented by: [id number] Admin: 05/04/19 21:43 Dose: 5 mg Documented by: [id number] Admin: 05/04/19 08:20 Dose: 5 mg Documented by: [id number] Admin: 05/03/19 20:07 Dose: 5 mg Documented by: [id number] Admin: 05/03/19 09:34 Dose: 5 mg Documented by: [id number] Admin: 05/02/19 23:19 Dose: 5 mg Documented by: [id number] Benzonatate (Tessalon Perle) 100 mg PO TID PRN PRN Reason: Cough Stop: 06/04/19 02:28 Last Admin: 05/05/19 02:42 Dose: 100 mg Documented by: [id number] Clonazepam (Klonopin) 0.5 mg PO BID@0800,2000 [facility] Stop: 06/02/19 19:59 Last Admin: 05/05/19 08:38 Dose: 0.5 mg Documented by: [id number] Admin: 05/04/19 20:02 Dose: 0.5 mg Documented by: [id number] Admin: 05/04/19 08:19 Dose: 0.5 mg Documented by: [id number] Admin: 05/03/19 20:06 Dose: 0.5 mg Documented by: [id number] Clonazepam (Klonopin) 0.25 mg PO BID@1200,1600 [facility] Stop: 06/02/19 15:59 Last Admin: 05/04/19 15:42 Dose: 0.25 mg Documented by: [id number] Admin: 05/04/19 12:02 Dose: 0.25 mg Documented by: [id number] Admin: 05/03/19 17:28 Dose: 0.25 mg Documented by: [id number] Docusate Sodium (Colace) 100 mg PO DAILY [facility] Stop: 06/02/19 08:59 Last Admin: 05/05/19 08:34 Dose: 100 mg Documented by: [id number] Admin: 05/04/19 08:20 Dose: 100 mg Documented by: [id number] Admin: 05/03/19 09:34 Dose: 100 mg Documented by: [id number] Folic Acid (Folvite) 1 mg PO QAM [facility] Stop: 06/02/19 08:59 Last Admin: 05/05/19 08:35 Dose: 1 mg Documented by: [id number] Admin: 05/04/19 08:20 Dose: 1 mg Documented by: [id number] Admin: 05/03/19 09:34 Dose: 1 mg Documented by: [id number] Magnesium Oxide (Mag-Ox) 400 mg PO DAILY [facility] Stop: 06/02/19 08:59 Last Admin: 05/05/19 09:04 Dose: 400 mg Documented by: [id number] Admin: 05/04/19 08:20 Dose: 400 mg Documented by: [id number] Admin: 05/03/19 09:34 Dose: 400 mg Documented by: [id number] Metoprolol Succinate (Toprol Xl) 100 mg PO BID [facility] Stop: 06/03/19 20:59 Last Admin: 05/05/19 08:35 Dose: 100 mg Documented by: [id number] Admin: 05/04/19 21:42 Dose: 100 mg Documented by: [id number] Ondansetron HCl (Zofran) 4 mg IV Q6H PRN PRN Reason: Nausea Stop: 06/01/19 19:40 Last Admin: 05/05/19 09:54 Dose: 4 mg Documented by: [id number] Quetiapine Fumarate (Seroquel) 100 mg PO QPM [facility] Stop: 06/01/19 20:59 Last Admin: 05/04/19 21:43 Dose: 100 mg Documented by: [id number] Admin: 05/03/19 20:07 Dose: 100 mg Documented by: [id number] Admin: 05/02/19 23:19 Dose: 100 mg Documented by: [id number] Sertraline HCl (Zoloft) 75 mg PO QAM [facility] Stop: 06/02/19 08:59 Last Admin: 05/05/19 08:36 Dose: 75 mg Documented by: [id number] Admin: 05/04/19 08:20 Dose: 75 mg Documented by: [id number] Admin: 05/03/19 09:34 Dose: 75 mg Documented by: [id number] Thiamine HCl (Vitamin B-1) 100 mg PO DAILY [facility] Stop: 06/02/19 08:59 Last Admin: 05/05/19 08:35 Dose: 100 mg Documented by: [id number] Admin: 05/04/19 08:20 Dose: 100 mg Documented by: [id number] Admin: 05/03/19 09:34 Dose: 100 mg Documented by: [id number] Thiamine HCl ([facility]itamin B-1) [facility] Stop: 06/04/19 08:59 Last Admin: 05/05/19 08:37 Dose: 100 mg Documented by: [id number] Coding Level of Care Code 11346 [facility] Intl Hosp Care Lvl 3 Diagnoses Anxiety F41.9 Metabolic encephalopathy G93.41
[2019-05-05] MEDS: QUETIAPINE FUMARATE 100 MG TABLET PO SCH (20:27)
[2019-05-05] MEDS: ALBUTEROL HFA 8 GM INHALER INH PRN (20:30)
--- NOTE | 2019-05-05 21:41 | Hospitalist Progress Note ---
Date of Service May 05, 2019 Assessment & Plan (1) Atrial fibrillation, rapid: Improved Cr and rate with IV fluids given - consistent with dehydration rather than hypervolemic diagnosis despite elevated BNP. Metoprolol succinate increased from home dose of 50 mg twice daily to 100 mg tw ice daily Continue Eliquis Echocardiogram - LVEF 45-50% with moderate mitral regurgitation (2) Chronic diastolic heart failure: Chronic diastolic heart failure without current exacerbation. Elevated BNP I expect is related to myocardial damage from her prior alcohol use. No Lasix use as outpatient. (3) JESS (acute kidney injury): Will give additional 500ml bolus of LR to help with persistent tachycardia as I still feel this likely represents some appropriate response to dehydration and monitor creatinine. Cr not yet back to baseline of 1.07, currently 1.43. (4) Hypomagnesemia: Mg 1.4. Magnesium sulfate IV 2 g. Repeat daily (5) Hypertension: Continue metoprolol (6) Dementia: Monitor for delirium. Suspected secondary to alcohol use. Seroquel 100 mg p.o. at night (7) Chronic respiratory failure with hypoxia: I am unclear whether her hypoxia is chronic since she appears to have been on oxygen during her last admission in July. EMS report 95% O2 sats initially although this is unclear whether this is on room air. Plan to call [facility] for a better history from nurse who is back on Monday. (8) Anxiety: Significant clonazepam use causing sedation. Unable to confirm dose with [facility] due to it being the weekend. Appreciate psychiatry consult and discussed with Dr. Okeefe over the phone. Also confusing this is not on PDMP but is on EMS notes. Unclear who is prescribing her these medications as an outpatient and will need to check with [facility] nurse on Monday. The real estate legal secretary at [facility] was able to confirm however she does take some amount of clonazepam although psych weaned off this during her last admission. (9) DVT prophylaxis: Continue Eliquis twice daily. Subjective Patient unaware of why she is in hospital. Unable to get history from patient. Denies current chest pain, shortness of breath, abdominal pain. Review of Systems Review of Systems: Unobtainable due to mental health condition Physical Exam Constitutional: + ill appearing (Chronically) and + disheveled; + not well nourished and no acute distress Eyes: + anicteric sclerae; normal pupil size ENMT: Ears: no external ear abnormality Nose: no external nose abnormality Mouth: + dry oral mucous membranes Neck: normal visual inspection and trachea midline Respiratory: normal respiratory effort; no respiratory distress, no labored breathing, no retractions and does not use accessory muscles Auscultation: + diminished lung sounds (bibasal); no crackles, no rales and no rhonchi Cardiovascular: Rate/Rhythm: + tachycardic and + irregularly irregular Heart Sounds: no murmur Extremities: normal capillary refill and + pedal edema (Trace bilateral) Gastrointestinal (Abdomen): normal bowel sounds, soft, nontender, no hepatosplenomegaly Musculoskeletal: no cyanosis or clubbing, extremities motor strength 5/5 (Grossly normal) Skin: no rashes, warm and dry Neurologic: moves all extremities, awake and + confused Motor/Sensory: no tremor and no pronator drift Psychiatric: Orientation: alert; + not oriented x 3 Eye Contact: + fair eye contact Motor Behavior: no abnormal motor movements Mood: + anxious mood Thought Process: + tangential thought process Thought Content: + preoccupation; no delusions Hallucinations: no auditory hallucinations and no visual hallucinations Cognition: + recent memory not intact and + remote memory not intact Insight: + poor insight Results & Data Vital Signs (Past 12 Hours) Vital Signs Temp Pulse Pulse Resp BP BP Pulse Ox 05/05/19 19:04 36.7 C 103 H 20 127/92 97 05/05/19 14:45 137 H 05/05/19 11:57 36.7 C 71 18 133/91 94 PG Care Time/CCT Total # of Minutes Spent Total Time Spent with Patient: Total time spent is greater than 50% in coordination of care (as documented) at patient's floor/unit and/or counseling patient: (1) Dementia Dementia behavioral disturbance: with behavioral disturbance Dementia type: unspecified type Qualified Code(s): F03.91 - Unspecified dementia with behavioral disturbance (2) Hypertension Hypertension type: essential hypertension Qualified Code(s): I10 - Essential (primary) hypertension
--- NOTE | 2019-05-05 22:06 | XRay Report ---
XR chest 1V portable CLINICAL HISTORY: 73 years-old Female presenting with cough. TECHNIQUE: Portable upright AP view of the chest was obtained. COMPARISON: 05/02/2019. FINDINGS: Cardiac silhouette moderately enlarged. Main pulmonary artery enlargement. Pulmonary vascular promine nce increased from prior. No focal opacity. Trace pleural effusions may be present. No large pneumoth orax. Degenerative changes of the thoracic spine. Degenerative changes of the shoulders. External claire ds project over the right upper quadrant. IMPRESSION: 1. Cardiomegaly with mild volume overload. No advanced congestive change or pulmonary edema. 2. Suspected pulmonary artery hypertension. 3. Suspected trace pleural effusions. Electronically signed by: Inocente Patton M.D. 05/05/2019 10:05 PM
[2019-05-05] MEDS ORDERED: LEVALBUTEROL HCL 0.63 MG/3 ML NEB NEB PRN (22:32)
[2019-05-06 05:54] LABS: Basophils # (auto) 0.02 K/uL (0-0.2); Basophils % (auto) 0.4 %; Eosinophils # (auto) 0.42 K/uL (0-0.5); Eosinophils % (auto) 7.5 %; Hematocrit (blood only) 41.8 % (37-47); Hemoglobin 12.9 g/dL (12.0-16.0); Immature Granulocytes # (auto) 0.01 K/uL (0.00-0.02); Immature Granulocytes % (auto) 0.2 %; Lymphocytes # (auto) 1.32 K/uL (1.2-3.4); Lymphocytes % (auto) 23.5 %; Mean Corpuscular Hemoglobin 27.9 pg (25-34); Mean Corpuscular Hgb Conc 30.9 g/dL (32-36); Mean Corpuscular Volume 90.3 fL (80-100); Mean Platelet Volume 9.9 fL (7.4-10.4); Monocytes # (auto) 0.61 K/uL (0.11-0.59); Monocytes % (auto) 10.9 %; Neutrophils # (auto) 3.23 K/uL (1.4-6.5); Neutrophils % (auto) 57.5 %; Platelet Count 152 K/uL (130-400); RDW Coefficient of Variation 19.9 % (11.5-14.5); RDW Standard Deviation 64.9 fL (36.4-46.3); Red Blood Count 4.63 M/uL (4.2-5.4); White Blood Count 5.61 K/uL (4.8-10.8)
[2019-05-06 06:22] LABS: BUN Creatinine Ratio 19.7 (10-20); Calcium 8.6 mg/dl (8.5-10.1); Creatinine Clr Calc Pharmacy 37.4 ml/min; Est GFR (African American) 49.6; Est GFR (Non-African American) 42.8; Magnesium 1.7 mg/dl (1.8-2.4); Potassium 3.7 mmol/L (3.5-5.1)
[2019-05-06] MEDS: THIAMINE HCL 100 MG TAB PO SCH ×2 (09:01→09:04)
[2019-05-06] MEDS: METOPROLOL SUCC 50MG EXT REL TAB PO SCH ×2 (09:01→20:17)
[2019-05-06] MEDS: SERTRALINE HCL 50 MG TABLET PO SCH (09:02)
[2019-05-06] MEDS: FOLIC ACID 1 MG TAB PO SCH (09:02)
[2019-05-06] MEDS: APIXABAN 5 MG TABLET PO SCH ×2 (09:02→20:18)
[2019-05-06] MEDS: MAGNESIUM OXIDE 400 MG TAB PO SCH (09:03)
[2019-05-06] MEDS: DOCUSATE SODIUM 100 MG CAP PO SCH (09:05)
[2019-05-06] MEDS: clonazePAM 0.5 MG TAB PO SCH ×2 (09:06→20:16)
--- NOTE | 2019-05-06 09:13 | Cardiology Progress Note ---
Date of Service May 06, 2019 Assessment & Plan (1) Acute diastolic CHF (congestive heart failure): (2) Atrial fibrillation, rapid: (3) CKD (chronic kidney disease) stage 3, GFR 30-59 ml/min: ASSESSMENT/PLAN: 1. Acute diastolic CHF: She appears hypervolemic 3 days ago and received Lasix 40 mg IV x2 days. Her creatinine increased from 1.59-1.7 and has since improved. She does not appear to be significantly hypervolemic at this time. According to hospitalist records, she also received IV fluids for concern of hypovolemia prior to Lasix and then again after Lasix however she became more short of breath after presentation while receiving fluids. 2. Atrial fibrillation with rapid ventricular response: She has permanent atrial fibrillation and is asymptomatic. Heart rate has improved with titration of metoprolol from 50 mg twice daily up to 100 mg twice daily. Continue current dose for now. Continue anticoagulation for stroke risk reduction. 3. CKD: Stable. 4. Mild cardiomyopathy: LV systolic function mildly reduced per echo report of an EF of 45-50%. Given her other comorbidities, would recommend conservative approach. Continue beta-edwin. Her tachycardia may have played a role in this. She does not appear to be significantly hypervolemic currently. Low- sodium diet recommended. She may require a low dose of p.o. diuretic therapy if she appears hypervolemic or becomes more short of breath in the future. Would hold off for now and monitor. 5. Disposition: Cardiology will sign off for now. Please call with any other questions or concerns. Subjective She denies shortness of breath, chest pain, pain in general, palpitations. She wonders why she is here. She seemed confused today. She stated that her was here earlier today visiting with her, however she is a . She also talked about a dentist who saw her on the street and talked to her about pictures. Review of systems: As above. Physical Exam Physical Exam: Gen.: No acute distress. Alert. HEENT: Anicteric sclera. Neck: No pre shovel JVD. No Hepatic jugular reflux noted. Cardiac: Irregularly irregular. Normal S1-S2. 1/6 systolic murmur. No rubs, or gallops. Pulmonary: Decreased breath sounds at the bases, otherwise clear. Abdomen: Soft, nontender, nondistended, with normoactive bowel sounds. No bruits noted. Extremities: Trace bilateral lower extremity edema. No cyanosis. Psychiatric: Affect appears appropriate. Results & Data Vital Signs (Past 12 Hours) Vital Signs Temp Pulse Pulse Resp BP Pulse Ox 05/06/19 07:09 36.6 C 51 L 16 137/95 99 05/06/19 04:15 36.4 C L 91 H 18 133/93 91 05/06/19 00:59 88 05/05/19 22:48 36.5 C 84 18 123/88 90 Intake & Output 05/04/19 05/05/19 05/06/19 05/07/19 06:59 06:59 06:59 06:59 Intake Total 1205 / 1205 700 / 700 651.667 / 651.667 Output Total 667 / 667 550 / 550 250 / 250 Balance 538 / 538 150 / 150 401.667 / 401.667 Weight 69.6 kg Laboratory Results Laboratory Results - last 24 hr 05/06/19 05/06/19 05:42 05:42 WBC 5.61 RBC 4.63 Hgb 12.9 Hct 41.8 MCV 90.3 MCH 27.9 MCHC 30.9 L RDW Std Deviation 64.9 H RDW Coeff of Mario 19.9 H Plt Count 152 MPV 9.9 Immature Gran % (Auto) 0.2 Neut % (Auto) 57.5 Lymph % (Auto) 23.5 Pacific % (Auto) 10.9 Eos % (Auto) 7.5 Baso % (Auto) 0.4 Immature Gran # (Auto) 0.01 Neut # (Auto) 3.23 Lymph # (Auto) 1.32 Pacific # (Auto) 0.61 H Eos # (Auto) 0.42 Baso # (Auto) 0.02 Sodium 139 Potassium 3.7 Chloride 104 Carbon Dioxide 30 Anion Gap 6.0 BUN 25 H Creatinine 1.26 H Est Cr Clr Drug Dosing 37.4 Est GFR ( Amer) 49.6 Est GFR (Non-Af Amer) 42.8 BUN/Creatinine Ratio 19.7 Glucose 103 H Calcium 8.6 Magnesium 1.7 L Diagnostic Findings Telemetry personally reviewed: Atrial fibrillation however heart rate overall has improved with titration of beta-edwin. Medications Administered Current Inpatient Medications Acetaminophen (Tylenol) 650 mg PO Q4H PRN PRN Reason: Pain or Fever Stop: 06/01/19 19:40 Al Hydrox/Mg Hydrox/Simethicone (Maalox) 15 ml PO Q4H PRN PRN Reason: Dyspepsia Stop: 06/01/19 19:40 Albuterol (Ventolin Hfa) 2 puffs INH DAILY PRN PRN Reason: Shortness Of Breath Stop: 06/01/19 19:25 Last Admin: 05/05/19 20:30 Dose: 2 puffs Documented by: Apixaban (Eliquis) 5 mg PO BID [facility] Stop: 06/01/19 20:59 Last Admin: 05/06/19 09:02 Dose: 5 mg Documented by: Benzonatate (Tessalon Perle) 100 mg PO TID PRN PRN Reason: Cough Stop: 06/04/19 02:28 Last Admin: 05/05/19 02:42 Dose: 100 mg Documented by: Clonazepam (Klonopin) 0.25 mg PO BID@0800,2000 [facility] Stop: 06/05/19 07:59 Last Admin: 05/06/19 09:06 Dose: 0.25 mg Documented by: Docusate Sodium (Colace) 100 mg PO DAILY [facility] Stop: 06/02/19 08:59 Last Admin: 05/06/19 09:05 Dose: 100 mg Documented by: Folic Acid (Folvite) 1 mg PO QAM [facility] Stop: 06/02/19 08:59 Last Admin: 05/06/19 09:02 Dose: 1 mg Documented by: Levalbuterol HCl (Xopenex 0.63 Mg/3 Ml Neb) 0.63 mg NEB Q6R PRN PRN Reason: SOB or wheeze Stop: 06/05/19 00:59 Magnesium Hydroxide (Milk Of Magnesia) 30 ml PO Q12H PRN PRN Reason: Constipation Stop: 06/01/19 19:40 Magnesium Oxide (Mag-Ox) 400 mg PO DAILY [facility] Stop: 06/02/19 08:59 Last Admin: 05/06/19 09:03 Dose: 400 mg Documented by: Metoprolol Succinate (Toprol Xl) 100 mg PO BID [facility] Stop: 06/03/19 20:59 Last Admin: 05/06/19 09:01 Dose: 100 mg Documented by: Nitroglycerin (Nitrostat) 0.4 mg SL UD PRN PRN Reason: Chest Pain Stop: 06/01/19 19:40 Ondansetron HCl (Zofran) 4 mg IV Q6H PRN PRN Reason: Nausea Stop: 06/01/19 19:40 Last Admin: 05/05/19 09:54 Dose: 4 mg Documented by: Polyethylene Glycol (Miralax Powder Packet) 17 gm PO DAILY PRN PRN Reason: Constipation Stop: 06/01/19 19:40 Quetiapine Fumarate (Seroquel) 100 mg PO QPM [facility] Stop: 06/01/19 20:59 Last Admin: 05/05/19 20:27 Dose: 100 mg Documented by: Senna/Docusate Sodium (Senokot S) 1 tab PO DAILY PRN PRN Reason: Constipation Stop: 06/01/19 19:25 Sertraline HCl (Zoloft) 75 mg PO QAM [facility] Stop: 06/02/19 08:59 Last Admin: 05/06/19 09:02 Dose: 75 mg Documented by: Thiamine HCl (Vitamin B-1) 100 mg PO DAILY [facility] Stop: 06/02/19 08:59 Last Admin: 05/06/19 09:01 Dose: 100 mg Documented by: Thiamine HCl (Vitamin B-1) 100 mg PO QAM [facility] Stop: 06/04/19 08:59 Last Admin: 05/06/19 09:04 Dose: Not Given Documented by: PG Care Time/CCT Total # of Minutes Spent Total Time Spent with Patient: Total time spent is greater than 50% in coordination of care (as documented) at patient's floor/unit and/or counseling patient:
[2019-05-06] MEDS ORDERED: POTASSIUM CHLORIDE 20 MEQ TABCR PO STA (09:36)
[2019-05-06] MEDS ORDERED: MAGNESIUM SULFATE / D5W 1 GM/100 ML BAG IV STA (09:37)
--- NOTE | 2019-05-06 11:58 | Communication Note ---
Date of Service: May 06, 2019 The psychiatric liaison nurse spoke with the patient's son, who reported that she has been on sertraline for depression with good effect. Clonazepam was started by her PCP, Dr. Mckinnon, in 02/2019, and the dose was increased to 3 mg daily a couple weeks later after she had a panic attack. Since then, her son has noted increased confusion and disorientation which waxes and wanes throughout the day. -Most likely diagnosis is delirium due to benzodiazepines. Recommend she be tapered off clonazepam and that benzodiazepines be avoided in the future. Please send records to her PCP for coordination of care. If anxiety worsens, recommend increasing her SSRI.
[2019-05-06] MEDS: QUETIAPINE FUMARATE 100 MG TABLET PO SCH (20:17)
--- NOTE | 2019-05-06 20:54 | Hospitalist Progress Note ---
Date of Service May 06, 2019 Assessment & Plan (1) Atrial fibrillation, rapid: Improved Cr and rate with IV fluids given - consistent with dehydration rather than hypervolemic diagnosis despite elevated BNP. Metoprolol succinate increased from home dose of 50 mg twice daily to 100 mg tw ice daily Still with rates in the low 100s at times at rest Appreciate Cardiology consultation Continue Eliquis Echocardiogram - LVEF 45-50% with moderate mitral regurgitation (2) Chronic diastolic heart failure: There was debate about whether she had acute on chronic diastolic CHF on admission Cardiology did think she was hypervolemic and agreed with diuresis. 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 Suspected secondary to alcohol use. Seroquel 100 mg p.o. at night (7) Chronic respiratory failure with hypoxia: It does not appear she has O2 at home Sats here are 99% on 2L Diffuse wheezing today and has a h/o smoking she tells me -start scheduled Xopenex nebs -consider prednisone if not improving -wean off O2 to keep POx>92% -will encourage smoking cessation -consider outpt PFTs (8) Anxiety: Significant clonazepam use causing sedation. Confirmed this was prescribed by her PCP in 02/2019 and coinfusion has worsened since then She was taking it for anxiety Appreciate psychiatry consult -recommends weaning off all benzos -down to 0.25mng bid and will wean down to 0.25mg qhs tomorrow -no signs of withdrawal but does remain on a 1:1 (9) DVT prophylaxis: Continue Eliquis twice daily. Dispo-remain on med tele for rapid atrial fib and suspected COPD exacerbation Subjective Pt confused but understands what I ask of her and asks about what the plan is. She then tells me that she is irritated that there is a sitter in the room. Denies chest pain, but is coughing. Review of Systems Review of Systems: All systems reviewed & are unremarkable except as noted in HPI & below Physical Exam Constitutional: WD/WN, vitals as above Eyes: + anicteric sclerae Neck: trachea midline, no thyromegaly Respiratory: normal respiratory effort; no labored breathing Auscultation: + wheezes (diffuse wheezing); no crackles and no rhonchi Cardiovascular: Rate/Rhythm: + tachycardic and + irregularly irregular Heart Sounds: no murmur Extremities: no edema Chest (Breasts): Chest: normal inspection of chest Gastrointestinal (Abdomen): normal bowel sounds, soft, nontender, no hepatosplenomegaly Musculoskeletal: Extremities: extremities normal to inspection; no cyanosis and no clubbing Neurologic: moves all extremities and awake; no focal motor deficits Psychiatric: Orientation: alert, oriented to person and cooperative Lymphatic: no lymphedema Results & Data Vital Signs (Past 12 Hours) Vital Signs Temp Pulse Pulse Resp BP Pulse Ox 05/06/19 19:00 36.5 C 112 H 20 127/92 99 05/06/19 16:15 115 H 05/06/19 14:49 37.1 C 98 H 16 126/95 97 05/06/19 11:09 36.6 C 98 H 18 137/81 100 Laboratory Results 05/06/19 05/06/19 Range/Units 05:42 05:42 WBC 5.61 (4.8-10.8) K/uL RBC 4.63 (4.2-5.4) M/uL Hgb 12.9 (12.0-16.0) g/dL Hct 41.8 (37-47) % MCV 90.3 (80-100) fL MCH 27.9 (25-34) pg MCHC 30.9 L (32-36) g/dL RDW Std Deviation 64.9 H (36.4-46.3) fL RDW Coeff of Mario 19.9 H (11.5-14.5) % Plt Count 152 (130-400) K/uL MPV 9.9 (7.4-10.4) fL Immature Gran % (Auto) 0.2 % Neut % (Auto) 57.5 % Lymph % (Auto) 23.5 % Sauk % (Auto) 10.9 % Eos % (Auto) 7.5 % Baso % (Auto) 0.4 % Immature Gran # (Auto) 0.01 (0.00-0.02) K/uL Neut # (Auto) 3.23 (1.4-6.5) K/uL Lymph # (Auto) 1.32 (1.2-3.4) K/uL Sauk # (Auto) 0.61 H (0.11-0.59) K/uL Eos # (Auto) 0.42 (0-0.5) K/uL Baso # (Auto) 0.02 (0-0.2) K/uL Sodium 139 (136-145) mmol/L Potassium 3.7 (3.5-5.1) mmol/L Chloride 104 (98-107) mmol/L Carbon Dioxide 30 (21-32) mmol/L Anion Gap 6.0 (3-11) BUN 25 H (7-18) mg/dl Creatinine 1.26 H (0.6-1.2) mg/dl Est Cr Clr Drug Dosing 37.4 ml/min Est GFR ( Amer) 49.6 Est GFR (Non-Af Amer) 42.8 BUN/Creatinine Ratio 19.7 (10-20) Glucose 103 H (70-99) mg/dl Calcium 8.6 (8.5-10.1) mg/dl Magnesium 1.7 L (1.8-2.4) mg/dl PG Care Time/CCT Total # of Minutes Spent Total Time Spent with Patient: Total time spent is greater than 50% in coordination of care (as documented) at patient's floor/unit and/or counseling patient: (1) Hypertension Hypertension type: essential hypertension Qualified Code(s): I10 - Essential (primary) hypertension (2) Dementia Dementia type: unspecified type Dementia behavioral disturbance: with behavioral disturbance Qualified Code(s): F03.91 - Unspecified dementia with behavioral disturbance
[2019-05-06] MEDS: methylPREDNISolone 60 MG in SYRINGE 0 ML IV SCH (21:41)
[2019-05-07] MEDS: LEVALBUTEROL HCL 0.63 MG/3 ML NEB NEB SCH ×3 (01:18→13:11)
[2019-05-07 07:22] LABS: BUN Creatinine Ratio 18.7 (10-20); Creatinine Clr Calc Pharmacy 34.4 ml/min; Est GFR (African American) 45.7; Est GFR (Non-African American) 39.4; Magnesium 1.8 mg/dl (1.8-2.4); Potassium 4.7 mmol/L (3.5-5.1)
[2019-05-07] MEDS: APIXABAN 5 MG TABLET PO SCH (08:06)
[2019-05-07] MEDS: FOLIC ACID 1 MG TAB PO SCH (08:07)
[2019-05-07] MEDS: SERTRALINE HCL 50 MG TABLET PO SCH (08:07)
[2019-05-07] MEDS: MAGNESIUM OXIDE 400 MG TAB PO SCH (08:07)
[2019-05-07] MEDS: THIAMINE HCL 100 MG TAB PO SCH (08:07)
[2019-05-07] MEDS: METOPROLOL SUCC 50MG EXT REL TAB PO SCH (08:08)
[2019-05-07] MEDS: methylPREDNISolone 60 MG in SYRINGE 0 ML IV SCH (08:14)
[2019-05-07] MEDS: clonazePAM 0.5 MG TAB PO SCH (08:14)
[2019-05-07] MEDS: DOCUSATE SODIUM 100 MG CAP PO SCH (08:14)
--- NOTE | 2019-05-07 14:18 | Discharge Summary ---
Date of Service May 07, 2019 Admission HPI Per Admitting Provider None availbe. In brief, pt was admitted with confusion, hypoxia, and acute bronchitis, with rapid atrial fibrillation. Principal Diagnosis Acute respiratory failure with hypoxia, Rapid atrial fibrillation, Acute COPD exacerbation Discharge Exam Constitutional WD/WN, vitals as above Eyes + anicteric sclerae Neck trachea midline, no thyromegaly Respiratory normal respiratory effort; no labored breathing Auscultation: + wheezes (very faint, mild,improved from previous); no crackles and no rhonchi Cardiovascular Rate/Rhythm: regular rate and + irregularly irregular Heart Sounds: no murmur Extremities: no edema Chest (Breasts) Chest: normal inspection of chest Gastrointestinal (Abdomen) normal bowel sounds, soft, nontender, no hepatosplenomegaly Musculoskeletal Extremities: extremities normal to inspection; no cyanosis and no clubbing Neurologic moves all extremities and awake; no focal motor deficits Psychiatric Orientation: alert, oriented to person and cooperative Affect: euthymic affect Much more alert and able to answer questions appropriately Discharge Data Allergies Allergy/AdvReac Type Severity Reaction Status Date / Time Penicillins Allergy Unknown CAN'T Verified 05/02/19 12:59 REMEMBER MYCIN FAMILY DRUGS Allergy Unknown CAN'T Uncoded 05/02/19 12:59 REMEMBER-SEE COMMENT Consultations 05/02/19 17:36 ED Decision to Admit Stat 05/02/19 19:36 Consult Cardiology Routine 05/04/19 18:35 Consult Psychiatry Routine 05/05/19 21:55 Consult Health Information Management Routine Procedures Performed CXR Hospital Course (1) Acute respiratory failure with hypoxia: It does not appear she has O2 at home Was requiring O2 here and was likely due to acute bronchitis, has long history of smoking. Had diffuse wheezing which is now greatly improved with IV Steroids and nebulized bronchodilatrs Now weaned off O2 at time of discharge-was POx 90-92% at rest -continue prednisone 40mg daily x 5 more days and then stop -continue albuterol HFL 2 puffs q4h around the clock x 1 week -will encourage smoking cessation -consider outpt PFTs (2) Atrial fibrillation, rapid: Improved rates but remains in low 100s at times, down to 70s-90s overnight Metoprolol succinate increased from home dose of 50 mg twice daily to 100 mg twice daily Appreciate Cardiology consultation Continue Eliquis Echocardiogram - LVEF 45-50% with moderate mitral regurgitation -f/u routinely as outpt with Cardiology (3) Chronic diastolic heart failure: There was debate about whether she had acute on chronic diastolic CHF on admission Cardiology did think she was hypervolemic and agreed with diuresis. 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 Continue Seroquel 100 mg p.o. at night Had acute metabolic encephalopathy on admission secondary to clonazepam use and hypoxia--> much improved with weaning down clonazepam dose to 0.25mg bid x 3 more days and then down to 0.25mg po qhs x 3 days, then STOP Seen by Psychiatry and Psych notes faxed to PCP (8) Anxiety: Significant clonazepam use causing sedation. Confirmed this was prescribed by her PCP in 02/2019 and coinfusion has worsened since then She was taking it for anxiety Appreciate psychiatry consult -recommends weaning off all benzos -taper down schedule as above -no signs of withdrawal and mental status much improved (9) DVT prophylaxis: Continue Eliquis twice daily. Dispo-stable for dc to Personal Nursing Home with outpt PT/OT Does not need O2 at discharge-weaned off O2 Total Time Total Time Spent Total Time Spent (In Minutes): 35 min Total Time Includes: Examination of the Patient, Discharge Planning and Medication Reconciliation Discharge Plan Discharge Items Patient Disposition: Personal Nursing Home Reason For Visit: AFIB WITH RVR Discharge Diagnosis: Rapid atrial fibrillation, acute bronchitis, COPD exacerbation, Acute hypoxic respiratory failure Condition on Discharge: Fair Goals: You have been hospitalized for an acute medical problem. During your stay at [facility], we have made an effort to correct the problem that brought you to the hospital while keeping you as comfortable as possible. Medications were used to bring your condition under control and your discharge instructions will include directions for any medications you should take after leaving the hospital. Please make sure you see your Primary Care Provider as part of your follow up plan. 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 You can continue to use your albuterol inhaler 2 puffs every 4 hours until wheezing is improved over the next week. You initially were requiring oxygen but were weaned off of this by the time of discharge. Your clonazepam was lowered in dose and should be weaned off as per the following schedule to improve your confusion: Clonazepam 0.25mg twice a day x 3 days then 0.25mg once daily at bedtime x 3 days, then STOP. Your Metoprolol dose was increased to 100mg twice a day to improve your fast heart rate. Please follow up with your PCP within 1-2 weeks. Pending Studies at Discharge: No Stand-Alone Forms: [employer] Smoking Cessation Skilled Items Patient informed of condition?: Yes DNR: No Discharge Level of Care: Other Communicable Disease: No Discharge Prognosis: Improving Lines: None Urinary Catheter: No Medications and DC Order Prescriptions: New metoprolol succinate 100 mg tablet extended release 24 hr 100 mg PO BID Qty: 60 RF: 0 Continued sennosides-docusate sodium [Senna-S] 8.6-50 mg Tablet 1 tab-cap PO DAILY PRN (Reason: Constipation) RF: 0 thiamine HCl (vitamin B1) [Vitamin B-1] 100 mg Tablet 100 mg PO DAILY RF: 0 quetiapine 100 mg Tablet 100 mg PO QPM RF: 0 acetaminophen [Tylenol Extra Strength] 500 mg Tablet 500 mg PO TID PRN (Reason: Pain) RF: 0 sertraline 25 mg Tablet 25 mg PO QAM RF: 0 folic acid 1 mg Tablet 1 mg PO QAM RF: 0 sertraline 50 mg Tablet 50 mg PO QAM RF: 0 docusate sodium 100 mg Tablet 100 mg PO DAILY RF: 0 Eliquis 5 mg Tablet 5 mg PO BID RF: 0 biotin 1,000 mcg Tablet,Chewable 1,000 mcg PO QAM RF: 0 magnesium oxide [MagOx] 400 mg (241.3 mg magnesium) tablet 400 mg PO DAILY Qty: 7 RF: 0 prednisone 20 mg tablet 40 mg PO DAILY 5 Days Qty: 10 RF: 0 Changed clonazepam 0.5 mg Tablet 0.25 mg PO BID Qty: 5 RF: 0 albuterol sulfate [Ventolin HFA] 90 mcg/actuation Hfa Aerosol Inhaler 2 puff INHALATION Q4H Qty: 0 RF: 0 Discontinued metoprolol succinate 50 mg Tablet Extended Release 24 Hr 50 mg PO BID RF: 0 clonazepam 1 mg Tablet 1 mg PO BID RF: 0 doxycycline hyclate 100 mg tablet 100 mg PO BID 5 Days Qty: 10 RF: 0 Discharge Orders: Discharge Order (Routine); Ordered 05/07/19 Ordered By: Carla Maciel Admission Data Admit Date/Time: 05/02/19 19:40 Attending Provider: Carla Maciel Admit Provider: Dustin Barth Primary Care Provider: Nathan Alex Other Providers: Dustin Barth ; Bryce Reddy ; Estella Okeefe
--- NOTE | 2019-05-16 08:36 | Coding Query ---
CONGESTIVE HEART FAILURE To Promote full compliance with coding requirements relating to patient care, physician participation is requested in all cases of plastic finisher uncertainty. Please assist us with the following questions. A diagnosis of Congestive Heart Failure is documented in the patient's medical record. To accurately code this diagnosis and to compare patient severity, we ask that you specify the type of heart failure by placing an X within the parenthesis (x). Thank you ! CASSIA Caballero [facility] SYSTOLIC HEART FAILURE ( ) Acute ( ) Chronic ( ) Acute on Chronic ( ) Rheumatic ( ) Unknown DIASTOLIC HEART FAILURE ( ) Acute ( ) Chronic (x ) Acute on Chronic ( ) Rheumatic ( ) Unknown COMBINED SYSTOLIC AND DIASTOLIC HEART FAILURE ( ) Acute ( ) Chronic ( ) Acute on Chronic ( ) Rheumatic ( ) Unknown Was the CHF Present On Admission? Please check the appropriate box: (x ) Present on Admission ( ) Not Present On Admission ( ) Clinically undetermined MTDD
== END 2019-05-07 18:08 | disposition home or self-care (01) | DRG 308 ==
LOC: ED 17:10 → SUATTDRO 19:40 → 2S 19:40 → 2N 05-04 11:08

== ENCOUNTER 2019-05-21 20:03 | Inpatient (IN) ==
[2019-05-21] MEDS ORDERED: METOPROLOL SUCC 50MG EXT REL TAB PO STA (20:23)
[2019-05-21] MEDS ORDERED: dilTIAZem HCL 125 MG in DEXTROSE 5% 100 ML IV STA (20:23)
[2019-05-21] MEDS ORDERED: dilTIAZem HCl 5 MG/ML 5 ML VIAL IV STA (20:23)
[2019-05-21 20:32] LABS: Basophils # (auto) 0.01 K/uL (0-0.2); Basophils % (auto) 0.2 %; Eosinophils # (auto) 0.08 K/uL (0-0.5); Eosinophils % (auto) 1.2 %; Hematocrit (blood only) 48.4 % (37-47); Immature Granulocytes # (auto) 0.02 K/uL (0.00-0.02); Immature Granulocytes % (auto) 0.3 %; Lymphocytes # (auto) 0.94 K/uL (1.2-3.4); Lymphocytes % (auto) 14.3 %; Mean Corpuscular Hemoglobin 28.4 pg (25-34); Mean Corpuscular Volume 91.7 fL (80-100); Mean Platelet Volume 11.1 fL (7.4-10.4); Monocytes # (auto) 0.47 K/uL (0.11-0.59); Monocytes % (auto) 7.2 %; Neutrophils # (auto) 5.04 K/uL (1.4-6.5); Neutrophils % (auto) 76.8 %; Platelet Count 179 K/uL (130-400); RDW Coefficient of Variation 21.1 % (11.5-14.5); RDW Standard Deviation 70.5 fL (36.4-46.3); Red Blood Count 5.28 M/uL (4.2-5.4); White Blood Count 6.56 K/uL (4.8-10.8)
[2019-05-21 20:48] LABS: INR 1.8 (0.9-1.1); Partial Thromboplastin Ratio 1.2; Partial Thromboplastin Time 32.7 Seconds (21.0-31.0); Prothrombin Time 17.7 Seconds (9.0-12.0)
[2019-05-21] MEDS ORDERED: METOPROLOL TARTRATE 50 MG TAB ONE (21:01)
[2019-05-21 21:02] LABS: Anisocytosis Present
[2019-05-21 21:06] LABS: Albumin Globulin Ratio 1.1 (0.9-2); Albumin Level 3.2 gm/dl (3.4-5.0); BUN Creatinine Ratio 15.1 (10-20); Bilirubin,Total 1.2 mg/dl (0.2-1); Calcium 8.9 mg/dl (8.5-10.1); Creatinine Clr Calc Pharmacy 23.5 ml/min; Est GFR (African American) 27.7; Est GFR (Non-African American) 23.9; Globulin 2.8 gm/dl (2.5-4.0); Magnesium 1.7 mg/dl (1.8-2.4); Potassium 5.2 mmol/L (3.5-5.1)
[2019-05-21 21:08] LABS: Troponin I 0.179 ng/ml (0-0.045)
[2019-05-21] MEDS ORDERED: SODIUM CHLORIDE 0.9% 1000ML 500 ML IV ONE (21:09)
[2019-05-21] MEDS ORDERED: MAGNESIUM SULFATE / D5W 1 GM/100 ML BAG IV ONE ×2 (21:09→22:22)
--- NOTE | 2019-05-21 21:24 | XRay Report ---
XR chest 1V portable HISTORY: 73 years-old Female SOB acute shortness of breath COMPARISON: Chest radiograph 05/05/2019 TECHNIQUE: Portable AP view of the chest FINDINGS: Cardiac silhouette is enlarged, unchanged. Bilateral hilar prominence may reflect underlying pulmonar y arterial hypertension. No pneumothorax, large pleural effusion or overt pulmonary edema. Mild blunt ing of the costophrenic angles. Eventration of the right hemidiaphragm. No overt pulmonary edema. Deg enerative changes of the shoulders and spine. IMPRESSION: 1. Cardiomegaly without overt pulmonary edema. 2. Probable trace pleural effusions. ACT 112: Negative or not required by law. The above report was generated using voice recognition software. It may contain grammatical, syntax o r spelling errors. Electronically signed by: Chucho Potter M.D. 05/21/2019 9:23 PM
--- NOTE | 2019-05-21 21:44 | History & Physical Report ---
Date of Service May 21, 2019 Assessment & Plan (1) Atrial fibrillation, rapid: 73 y/o F Hx HTN, AF, COPD, diastolic CHF, CKD III, ETOH dementia. Presents from a care facility where she was found on the ground. She had apparently lowered herself to the ground due to shortness of breath and weakness while walking across her room. She has not had CP a productive cough or fevers. She was sent to the ER where rapid AF was confirmed on arrival. Initial labs are notable for acute on chronic RF, mild hyperK and an elevated troponin which she has had during prior episodes of rapid AF. 1) Rapid AF - placed on IV Diltiazem and will continue Metoprolol BID. She is anticoagulated with Apixaban 2) Dyspnea - diastolic CHF - clinically, she is volume overloaded despite her RF. Will stop IVF and administer Lasix. We will repeat a BMP a few hours after and AM 3) COPD - no clear evidence of exacerbation - PRN nebs ordered 4) ARF, hyperK - may be due to volume overload. Again, we will provide a dose of Lasix to determine if this improves her renal function. 5) Elevated trop - this occurred during her last admission with AF and CHF - will trend and consider repeat echo if the trop trends upward. No current evidence of ACS clinically. Full code - Apixaban prophylaxis Total time for this admit including review of labs, meds, imaging, records - discussion with pt and ER attending - 40 min History of Present Illness Chief Complaint: Dyspnea - tachycardia Primary Care Provider: Live Evans 73 y/o F Hx HTN, AF, COPD, diastolic CHF, CKD III, ETOH dementia. Presents from a care facility where she was found on the ground. She had apparently lowered herself to the ground due to shortness of breath and weakness while walking across her room. She has not had CP a productive cough or fevers. She was sent to the ER where rapid AF was confirmed on arrival. Initial labs are notable for acute on chronic RF, mild hyperK and an elevated troponin which she has had during prior episodes of rapid AF. The pt was recently admitted for rapid AF, volume overload and an elevated trop. She was DCd 05/09/19. Her elevated trop was deemed due to demand rather than CAD at that time. PMH: 1) HTN 2) Chronic AF 3) COPD 4) Diastolic CHF - grade I 5) Alcoholic dementia 6) CKD III Surgical: Limited to hysterectomy Social: The pt until recently abused both alcohol and cigarettes, having quit both in late 2019. Family: Mother due to complications of DM Father had heart disease Allergies Allergy/AdvReac Type Severity Reaction Status Date / Time Penicillins Allergy Unknown CAN'T Verified 05/21/19 21:01 REMEMBER Macrolide Antibiotics Allergy Unknown Verified 05/21/19 21:01 MYCIN FAMILY DRUGS Allergy Unknown CAN'T Uncoded 05/02/19 12:59 REMEMBER-SEE COMMENT Home Medications Home Medications Medication Instructions Recorded Confirmed Type Eliquis 5 mg PO BID #60 tab 05/07/19 05/21/19 Rx acetaminophen [Tylenol Extra 500 mg PO TID PRN #30 tab 05/07/19 05/21/19 Rx Strength] biotin 1,000 mcg PO QAM #30 tab 05/07/19 05/21/19 Rx docusate sodium 100 mg PO DAILY #60 tab 05/07/19 05/21/19 Rx folic acid 1 mg PO QAM #30 tab 05/07/19 05/21/19 Rx magnesium oxide [MagOx] 400 mg PO DAILY #30 tab 05/07/19 05/21/19 Rx metoprolol succinate 100 mg PO BID #60 tab 05/07/19 05/21/19 Rx quetiapine 100 mg PO QPM #30 tab 05/07/19 05/21/19 Rx sennosides-docusate sodium 1 tab-cap PO DAILY PRN #30 tab 05/07/19 05/21/19 Rx [Senna-S] sertraline 25 mg PO QAM #30 tab 05/07/19 05/21/19 Rx sertraline 50 mg PO QAM #30 tab 05/07/19 05/21/19 Rx thiamine HCl (vitamin B1) [Vitamin 100 mg PO DAILY #30 tab 05/07/19 05/21/19 Rx B-1] albuterol sulfate [Ventolin HFA] 2 puff INHALATION DAILY 05/21/19 05/21/19 History Past Med/Surg History Medical History Atrial fibrillation (Inactive) Chronic alcohol abuse Depression Hx of falling Hypertension (Chronic) Insomnia Pneumonia (Resolved) Tobacco abuse Surgical History H/O: hysterectomy H/O: hysterectomy Family History Mother , age 70 of uncertain causes No problems noted. Father , The mid-60s of a rare bone cancer No problems noted. 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 Feels Safe at Home: Yes Smoking Status: Former smoker Tobacco Type: cigarettes ; Cigarettes Per Day: Half a pack per day ; Second Hand Exposure: No ; Hx Alcohol Use: No Hx Substance Use: No Review of Systems Review of Systems: Gen: Denies fevers, night sweats, rigors - generalized weakness reported ENT: Denies congestion, throat pain, hearing loss Eyes: Denies acute visual changes CV: Denies CP, palpitations Pulmonary: Dyspnea which is pronounced with exertion GI: Denies N/V, diarrhea, constipation Neuro: Denies acute or unilateral weakness, acute gait impairment, headache or acute visual changes Musculoskeletal: Denies joint pain, inflammation Endocrine: Denies polydipsia, polyuria Skin: Denies acute rashes or ulcers Physical Exam Physical Exam: General: AAO x 2, no distress ENT: No erythema or exudates, no thrush Eyes: LILIYA, EOMI Head and neck: Normocephalic, atraumatic, + JVD, neck is supple. Chest/heart: Nontender, S1,2, irr, faint, no murmurs, no gallops Lungs: Very poor air movement and BL crackles at the bases Abdomen: Nontender, nondistended, BS+ Neuro: AAO x 3, speech is clear, no unilateral weakness or loss of sensation, coordination intact Musculoskeletal: No joint inflammation, muscle tenderness, FROM Skin: No acute rashes or ulcers Extremities: No clubbing, cyanosis - BL edema present Results & Data Vital Signs (Past 12 Hours) Vital Signs Temp Pulse Pulse Resp BP BP Pulse Ox 05/21/19 20:54 78 16 118/78 95 05/21/19 20:28 96 05/21/19 20:20 98.1 F 113 H 18 116/92 96 Diagnostic Findings EKG: rapid AF CXR: 1. Cardiomegaly without overt pulmonary edema. 2. Probable trace pleural effusions. Code Status & VTE Plan VTE Prophylaxis Plan VTE Prophylaxis will be ordered: Yes PG Care Time/CCT Total # of Minutes Spent Total Time Spent with Patient: Total time spent is greater than 50% in coordination of care (as documented) at patient's floor/unit and/or counseling patient:
[2019-05-21] MEDS ORDERED: SODIUM CHLORIDE 0.9% 1000ML 1,000 ML IV SCH (22:22)
[2019-05-21] MEDS ORDERED: MAGNESIUM HYDROXIDE SUSP 30 ML UDC PO PRN (22:22)
[2019-05-21] MEDS ORDERED: LEVALBUTEROL HCL 1.25 MG/3 ML NEB NEB PRN (22:22)
[2019-05-21] MEDS ORDERED: dilTIAZem HCL 125 MG in DEXTROSE 5% 100 ML IV SCH (22:22)
[2019-05-21] MEDS ORDERED: ALUMINUM/MAGNESIUM SUSP 30 ML UDC PO PRN (22:22)
[2019-05-21] MEDS ORDERED: ACETAMINOPHEN 325 MG TAB PO PRN (22:22)
[2019-05-21] MEDS ORDERED: LORazepam 0.25 MG/0.5 ML VIAL IV PRN (22:22)
[2019-05-21] MEDS ORDERED: FUROSEMIDE 40 MG in SYRINGE 0 ML IV STA (22:28)
[2019-05-21 23:58] LABS: Troponin I 0.21 ng/ml (0-0.045)
[2019-05-22 00:54] LABS: BUN Creatinine Ratio 17.5 (10-20); Calcium 8.8 mg/dl (8.5-10.1); Creatinine Clr Calc Pharmacy 27.7 ml/min; Est GFR (African American) 33.8; Est GFR (Non-African American) 29.2; Potassium 4.1 mmol/L (3.5-5.1)
--- NOTE | 2019-05-22 00:59 | Emergency Department Note ---
Entered by Rosa Maria Edgar acting as a scribe for Allan Pruett MD History of Present Illness General Chief complaint: Cardiac Assessment Stated complaint: AFIB Time Seen by Provider: 05/21/19 20:17 Source: patient Mode of arrival: ambulatory History of Present Illness Provider complaint: weakness Onset (ago): minute(s) (prior to arrival ) Location: left and right Severity: similar to prior episodes Quality: + other (weakness) Associated symptoms: + shortness of breath and + other (Positive back pain;); no chest pain and no syncope Treatments prior to arrival: none The patient, who is a 73 year old female with a medical history of weakness, atrial fibrillation and acute CHF, presents to the Emergency Room with complaints of weakness that occurred prior to arrival. The patient explains that she was walking from the bathroom to the kitchen for dinner when she started to feel short of breath and weak. The patient states that she did not fall but lowered herself to the ground and laid there for 15 minutes before help arrived. The patient denies syncope or chest pain. The patient expresses back pain due to lying on the hardwood floor. The patient states that she felt fine earlier today. The patient expresses that she often feels weak when she is getting dressed. The patient denies taking her night time medication. The patient's record shows that she is on Eliquis. Home Medications Home Medications Medication Instructions Recorded Confirmed Type Eliquis 5 mg PO BID #60 tab 05/07/19 05/21/19 Rx acetaminophen [Tylenol Extra 500 mg PO TID PRN #30 tab 05/07/19 05/21/19 Rx Strength] biotin 1,000 mcg PO QAM #30 tab 05/07/19 05/21/19 Rx docusate sodium 100 mg PO DAILY #60 tab 05/07/19 05/21/19 Rx folic acid 1 mg PO QAM #30 tab 05/07/19 05/21/19 Rx magnesium oxide [MagOx] 400 mg PO DAILY #30 tab 05/07/19 05/21/19 Rx metoprolol succinate 100 mg PO BID #60 tab 05/07/19 05/21/19 Rx quetiapine 100 mg PO QPM #30 tab 05/07/19 05/21/19 Rx sennosides-docusate sodium 1 tab-cap PO DAILY PRN #30 tab 05/07/19 05/21/19 Rx [Senna-S] sertraline 25 mg PO QAM #30 tab 05/07/19 05/21/19 Rx sertraline 50 mg PO QAM #30 tab 05/07/19 05/21/19 Rx thiamine HCl (vitamin B1) [Vitamin 100 mg PO DAILY #30 tab 05/07/19 05/21/19 Rx B-1] albuterol sulfate [Ventolin HFA] 2 puff INHALATION DAILY 05/21/19 05/21/19 History Allergies Allergy/AdvReac Type Severity Reaction Status Date / Time Penicillins Allergy Unknown CAN'T Verified 05/21/19 21:01 REMEMBER Macrolide Antibiotics Allergy Unknown Verified 05/21/19 21:01 MYCIN FAMILY DRUGS Allergy Unknown CAN'T Uncoded 05/02/19 12:59 REMEMBER-SEE COMMENT Past Med/Surg History Medical History Atrial fibrillation (Inactive) Chronic alcohol abuse Depression Hx of falling Hypertension (Chronic) Insomnia Pneumonia (Resolved) Tobacco abuse Surgical History H/O: hysterectomy H/O: hysterectomy Family History Mother , age 70 of uncertain causes No problems noted. Father , The mid-60s of a rare bone cancer No problems noted. 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 Feels Safe at Home: Yes Safety Concerns: Feels Safe At This Time Smoking Status: Former smoker Tobacco Type: cigarettes ; Cigarettes Per Day: Half a pack per day ; Second Hand Exposure: No ; Hx Substance Use: No Review of Systems See HPI for pertinent positives & negatives. and A total of 10 systems reviewed and were otherwise negative Physical Exam Vital Signs Vital Signs - 24 hr 05/21/19 20:20 05/21/19 20:28 05/21/19 20:54 Temperature 36.7 C Temperature Source Oral Pulse Rate 113 H Pulse Rate [Right] 78 Pulse Rhythm Irregular Pulse Rhythm [Right] Irregular Pulse Strength Normal Pulse Strength [Right] Normal Respiratory Rate 18 16 Respiratory Effort / Characteristics Non-Labored Spontaneous Non-Labored Spontaneous Respiratory Depth Normal Normal Blood Pressure 116/92 Blood Pressure [Right Arm] 118/78 Blood Pressure Mean 100 Blood Pressure Mean [Right Arm] 91 Blood Pressure Position Lying Blood Pressure Position [Right Arm] Lying Pulse Oximetry 96 96 95 Oxygen Delivery Method Room Air Room Air Nasal Cannula Oxygen Flow Rate 2 Sepsis Recent Fever Within 48 Hours No Sepsis Action Taken by Nursing No Action Required GENERAL: Patient is in no acute distress. HEENT: No acute trauma, normocephalic atraumatic, mucous membranes moist, no nasal congestion, no scleral icterus. NECK: No stridor, no adenopathy, no meningismus, trachea is midline. LUNGS: Clear to auscultation bilaterally, no wheeze, no rhonchi, breath sounds equal. HEART: Tachycardic rate with an irregular rhythm, no murmurs. ABDOMEN: Soft, nontender, bowel sounds positive, no hernias, no peritonitis. EXTREMITIES: No cyanosis or edema, full range of motion of all the joints without pain or difficulty, no signs for acute trauma. NEUROLOGIC: Oriented x 3, no acute motor or sensory deficits, no focal weakness. SKIN: No rash, no jaundice, no diaphoresis. Course Course 2020: Past medical records reviewed. The patient was evaluated in room A11B. A complete history and physical exam was performed. 2116: I reassessed the patient and talked to her about her results. The patient states that she is fine with being evaluated by the hospitalist. 2129: I reviewed the patient's case with Dr. Chavarria, [facility] Hospitalist. He will evaluate the patient for further management. Consultations Consultation #1: I reviewed the patient's case with Dr. Chavarria, [facility] Hospitalist. He will evaluate the patient for further management. Time: 21:30 Administered Medications Discontinued Medications Diltiazem HCl (Cardizem) 10 mg IV NOW STA Stop: 05/21/19 20:24 Last Admin: 05/21/19 20:40 Dose: 10 mg Documented by: [id number] Cosigned by: [id number] Diltiazem HCl 125 mg/ Dextrose 125 mls @ 0 mls/hr IV .Q0M STA; Protocol Stop: 05/21/19 20:24 Last Admin: 05/21/19 21:16 Dose: 5 mg/hr, 5 mls/hr Documented by: [id number] Cosigned by: [id number] Sodium Chloride (Nss 1000ml) 500 mls @ 999 mls/hr IV .Q31M ONE Stop: 05/21/19 21:39 Last Infusion: 05/21/19 21:53 Dose: 0 mls/hr Documented by: [id number] Admin: 05/21/19 21:20 Dose: 999 mls/hr Documented by: [id number] Magnesium Sulfate/Dextrose (Magnesium Sulfate / D5w) 1 gm in 100 mls @ 100 mls/hr IV ONE ONE Stop: 05/21/19 22:08 Last Infusion: 05/21/19 22:20 Dose: 0 mls/hr Documented by: [id number] Admin: 05/21/19 21:19 Dose: 100 mls/hr Documented by: [id number] Magnesium Sulfate/Dextrose (Magnesium Sulfate / D5w) 1 gm in 100 mls @ 100 mls/hr IV ONE ONE Stop: 05/21/19 23:21 Last Infusion: 05/22/19 00:40 Dose: 0 mls/hr Documented by: [id number] Admin: 05/21/19 23:39 Dose: 100 mls/hr Documented by: [id number] Furosemide 40 mg/ Syringe 4 mls @ 4 mls/min IV ONE STA Stop: 05/21/19 22:29 Last Admin: 05/21/19 23:39 Dose: 4 mls/min Documented by: [id number] Metoprolol Succinate (Toprol Xl) 100 mg PO NOW STA Stop: 05/21/19 20:24 Last Admin: 05/21/19 21:18 Dose: 100 mg Documented by: [id number] Metoprolol Tartrate (Lopressor) Confirm Administered Dose 100 mg .ROUTE .STK-MED ONE Stop: 05/21/19 21:02 Last Admin: 05/21/19 21:19 Dose: Not Given Documented by: [id number] Critical Care Time Critical Care Time: Yes Total Critical Care Time: 44 I have personally spent 44 minutes of critical care time in the direct management of this patient. This includes bedside care, interpretation of diagnostic studies, and testing, discussion with consultants, patient, and family members, and other required patient management activities. This 44 minutes is in excess of all separately billable procedures. Medical Decision Making Differential Diagnosis Differential diagnosis includes: rapid atrial fibrillation, myocardial infarction, electrolyte imbalance, con gestive heart failure, renal failure, missed medication dosage, infection, urinary tract infection, as well as others were entertained. Medical Records Attestation: I reviewed the patient's medical records. Home Medications Current Medication List: was personally reviewed by me Laboratory Data Attestation: I reviewed the patient's lab results. Result diagrams: 05/21/19 20:16 05/21/19 23:00 Lab Results 05/21/19 05/21/19 05/21/19 Range/Units 20:16 20:16 20:16 WBC 6.56 (4.8-10.8) K/uL RBC 5.28 (4.2-5.4) M/uL Hgb 15.0 (12.0-16.0) g/dL Hct 48.4 H (37-47) % MCV 91.7 (80-100) fL MCH 28.4 (25-34) pg MCHC 31.0 L (32-36) g/dL RDW Std Deviation 70.5 H (36.4-46.3) fL RDW Coeff of Mario 21.1 H (11.5-14.5) % Plt Count 179 (130-400) K/uL MPV 11.1 H (7.4-10.4) fL Immature Gran % (Auto) 0.3 % Neut % (Auto) 76.8 % Lymph % (Auto) 14.3 % Bullock % (Auto) 7.2 % Eos % (Auto) 1.2 % Baso % (Auto) 0.2 % Immature Gran # (Auto) 0.02 (0.00-0.02) K/uL Neut # (Auto) 5.04 (1.4-6.5) K/uL Lymph # (Auto) 0.94 L (1.2-3.4) K/uL Bullock # (Auto) 0.47 (0.11-0.59) K/uL Eos # (Auto) 0.08 (0-0.5) K/uL Baso # (Auto) 0.01 (0-0.2) K/uL Anisocytosis Present PT 17.7 H (9.0-12.0) Seconds INR 1.8 H (0.9-1.1) APTT 32.7 H (21.0-31.0) Seconds PTT Ratio 1.2 Sodium 138 (136-145) mmol/L Potassium 5.2 H (3.5-5.1) mmol/L Chloride 105 (98-107) mmol/L Carbon Dioxide 22 (21-32) mmol/L Anion Gap 11.0 (3-11) BUN 31 H (7-18) mg/dl Creatinine 2.04 H (0.6-1.2) mg/dl Est Cr Clr Drug Dosing 23.5 ml/min Est GFR ( Amer) 27.7 Est GFR (Non-Af Amer) 23.9 BUN/Creatinine Ratio 15.1 (10-20) Glucose 122 H (70-99) mg/dl Calcium 8.9 (8.5-10.1) mg/dl Magnesium 1.7 L (1.8-2.4) mg/dl Total Bilirubin 1.2 H (0.2-1) mg/dl AST 44 H (15-37) U/L ALT 25 (12-78) U/L Alkaline Phosphatase 63 (45-117) U/L Troponin I 0.179 H* (0-0.045) ng/ml Total Protein 6.0 L (6.4-8.2) gm/dl Albumin 3.2 L (3.4-5.0) gm/dl Globulin 2.8 (2.5-4.0) gm/dl Albumin/Globulin Ratio 1.1 (0.9-2) Specimen Hemolysis Imaging Data Radiologist's Impression: Radiology results as stated below per my review and the radiologist's interpretation: XR chest 1V portable HISTORY: 73 years-old Female SOB acute shortness of breath COMPARISON: Chest radiograph 05/05/2019 TECHNIQUE: Portable AP view of the chest FINDINGS: Cardiac silhouette is enlarged, unchanged. Bilateral hilar prominence may reflect underlying pulmonary arterial hypertension. No pneumothorax, large pleural effusion or overt pulmonary edema. Mild blunting of the costophrenic angles. Eventration of the right hemidiaphragm. No overt pulmonary edema. Degenerative changes of the shoulders and spine. IMPRESSION: 1. Cardiomegaly without overt pulmonary edema. 2. Probable trace pleural effusions. ACT 112: Negative or not required by law. The above report was generated using voice recognition software. It may contain grammatical, syntax or spelling errors. Electronically signed by: Chucho Potter M.D. 05/21/2019 9:23 PM ECG Data Attestation: I personally reviewed and interpreted this ECG as follows: Indication: + tachycardia Rate (beats per minute): 121 Rhythm: + atrial fibrillation (rapid) ECG ST segments: + Nonspecific ST abnormalities (Diffuse non-sepcific ST change) ECG Findings: + Other (No septal infarct; QTC 553); no PVCs Blood Pressure Blood Pressure Findings: Elevated blood pressure Blood Pressure Disposition: further management by hospitalist MDM Narrative There is no leukocytosis or concerning anemia. INR is elevated at 1.8. Creatinine is elevated consistent with some dehydration, the value was over 2 and this is above baseline for her. Magnesium slightly low at 1.7. There were a few very subtle liver enzyme elevations. EKG shows rapid A. fib without any evidence for acute PR. Cardiac enzyme testing does show a slight troponin elevation, this could be consistent with cardiac strain and/or mismatch. Chest film does not show pneumonia or CHF. The patient presents with a rapid A. fib. She had been short of breath and weak earlier. She appeared dehydrated by work-up. She had lowered herself to the gr ound because of her weakness, no fall, no head injury. The patient was given a bolus of IV diltiazem and then placed on a diltiazem drip. She received her typical dose of oral metoprolol. She was given IV saline bolus, 500 cc. She was given IV magnesium. The patient's heart rate is improved, she is currently resting comfortably. Given the rapid A. fib, given the dehydration and acute kidney injury, given the low magnesium, given her weakness and troponin elevation, I do think a hospital stay is warranted. I spoke to the patient and case management. The on-call hospitalist was consulted. Impression & Plan Atrial fibrillation, rapid, Elevated troponin, Weakness, Hypomagnesemia, Acute kidney injury Discharge Plan Visit Data *Final* Discharge Date/Time: 05/21/19 21:55 Chief Complaint: Cardiac Assessment Stated Complaint: AFIB ED Provider: Allan Pruett Discharge Problem: Atrial fibrillation, rapid, Elevated troponin, Weakness, Hypomagnesemia, Acute kidney injury Patient Disposition: Admitted As Inpatient Discharge Instructions Interventions: ED Discharge Assessment Last Done: 05/21/19 21:55 The naimaibe's documentation has been prepared under my direction and personally reviewed by me in its entirety. I confirm that the note above accurately reflects all work, treatment, procedures, and medical decision making performed by me.
[2019-05-22 07:11] LABS: BUN Creatinine Ratio 17.7 (10-20); Calcium 9.5 mg/dl (8.5-10.1); Creatinine Clr Calc Pharmacy 26.9 ml/min; Est GFR (African American) 33.8; Est GFR (Non-African American) 29.2; Magnesium 2.3 mg/dl (1.8-2.4); Potassium 4.1 mmol/L (3.5-5.1)
[2019-05-22 07:17] LABS: Troponin I 0.205 ng/ml (0-0.045)
[2019-05-22] MEDS: MAGNESIUM OXIDE 400 MG TAB PO SCH (08:00)
[2019-05-22] MEDS: DOCUSATE SODIUM 100 MG CAP PO SCH (08:00)
[2019-05-22] MEDS: METOPROLOL SUCC 50MG EXT REL TAB PO SCH ×2 (08:00→20:04)
[2019-05-22] MEDS: APIXABAN 5 MG TABLET PO SCH ×2 (08:00→20:04)
[2019-05-22] MEDS: FOLIC ACID 1 MG TAB PO SCH (08:00)
[2019-05-22] MEDS: SERTRALINE HCL 50 MG TABLET PO SCH (08:01)
[2019-05-22] MEDS: THIAMINE HCL 100 MG TAB PO SCH (08:01)
[2019-05-22] MEDS ORDERED: SERTRALINE HCL 50 MG TABLET PO SCH (09:00)
--- NOTE | 2019-05-22 09:07 | Hospitalist Progress Note ---
Date of Service May 22, 2019 Assessment & Plan (1) Atrial fibrillation, rapid: Patient is a 73-year-old female with a past medical history of hypertension, atrial fibrillation, COPD, diastolic congestive heart failure, chronic kidney disease stage III, alcoholic dementia, former smoker who presented to the hospital after being found down at a care facility. Per reports she had lowered herself to the ground after experiencing shortness of breath and weakness, she recently denied chest pain, cough, fever. On arrival in the emergency department she was found to be in atrial fibrillation with rapid ventricular response and started on a diltiazem drip, labs were notable for an JESS, she also reports recent history of dyspnea that failed to improve despite treatment of antibiotic therapy. Of note patient was recently hospitalized on 05/07/19 for similar complaints. Patient was started on a diltiazem drip in the emergency department and transferred to the PCU for further evaluation and management. #AFIB Patient with a history of A. fib with rapid ventricular response on anticoagulation with Eliquis recently discharged from [facility] on 05/07/2019 for an episode of atrial fibrillation with RVR presented to the hospital found to be in atrial fibrillation with RVR. She was started on a diltiazem drip and continued on her home beta-blockers, achieving rate control was transferred to the floor. Currently she denies chest pressure, chest pain, shortness of breath. Given this is her second bout of atrial fibrillation with RVR in 1 month, cardiology was consulted for medication recommendations. Cardiology consulted for recommendations regarding whether to uptitrate her metoprolol or add an additional agent, and to consider the benefits of daily Lasix therapy as an outpatient. Achieved rate control on a diltiazem drip at 5 mg/h, continue pending cardiology evaluation -For now continue 100 mg metoprolol succinate twice daily Vital signs stable and asymptomatic otherwise Continue Eliquis Most recent echo from 05/03 demonstrated EF 45 to 50% with moderate mitral regurg and no regional wall motion abnormality #JESS in the setting of CKD stage III Patient presented to the hospital with a creatinine of 1.73, and a GFR of 29.2 demonstrating acute kidney injury in the setting of chronic kidney disease, BUN was elevated to 31. Upon review of records it appears that the patient's baseline creatinine appears to be between 1.2 and 1.5, given her that she appeared fluid overloaded at presentation, will hold off on fluids for now. -Trend daily BMP -Avoid nephrotoxic medications -AFVSS #Dyspnea Patient reports a recent history of dyspnea prior to presentation to the hospital. She states that her PCP treated her with a course of Zithromax however her breathing had not improved. Upon presentation to the emergency department she was administered 40 mg IV Lasix, and diuresed overnight. Patient with 1+ bilateral pitting edema to the knees on physical examination, and bibasilar crackles. Currently given her JESS would refrain from further diuresis until kidney function improves. -If oxygenation worsens, or patient develops crackles/breathing difficulties would use as needed furosemide -To consider addition of daily Lasix to her outpatient medication regimen -Appreciate cardiology input #Elevated troponin (resolved) On presentation to the [facility] emergency department the patient had an elevated troponin to 0.179, this was trended x3, peaked at 0.210, and down trended to 0.205. EKG without evidence of ACS, patient asymptomatic. Upon review of her records, patient had an elevated troponin during her last presentation to the hospital for A. fib with RVR. Collectively these troponin elevations likely represent demand ischemia. #Alcoholic dementia Patient carries a diagnosis of alcoholic dementia, previously diagnosed at a prior admission. Patient is intermittently able to participate in conversation, however is alert and oriented x0. Patient frequently becomes upset when she has bouts of confusion. Continue home meds -Dementia precautions, windows open during the day, quiet dark room at night -Continue thiamine 100 mg p.o. daily -Continue quetiapine 100 mg p.o. every afternoon Continue sertraline 75 mg p.o. every morning #Agitation Patient was disruptive to other patients in the hospital overnight and nursing staff. Frequently having outbursts and waking the other patients. PRN Lorazepam 0.25 mg every 4 hours for anxiety/agitation PRN Haldol 2 mg every 15 minutes ordered in the event the patient becomes violent or aggressive and nursing has concerns for the patient's safety -Physician is to be contacted if administered, if possible prior to administration #Weakness Patient reports history of weakness with associated falls. Patient placed on fall precautions. Will consult PT/OT depending on patient's length of stay. Patient is already receiving PT/OT at her care facility. FENa: Heart healthy Code Status: Full code DVT PPX: Eliquis PT/OT: Not indicated, patient presently in a care facility Dispo: PCU pending clinical improvement Christian Reed MD PGY 2, FCM This chart was completed utilizing [employer] voice recognition software. Grammatical errors, random word insertions, pronoun errors, and in complete sentences are an occasional consequence of the system. Any questions or concerns about the content, text, or information contained within the body of this dictation should be addressed directly to the physician for clarification. (2) Elevated troponin: (3) Weakness: (4) JESS (acute kidney injury): (5) Anxiety: (6) CKD (chronic kidney disease) stage 3, GFR 30-59 ml/min: (7) Alcoholic dementia: (8) Acute diastolic CHF (congestive heart failure): (9) Hx of falling: Supervising Physician Co-Signing Physician Notes Patient seen and examined with PGY-2 Dr. Reed. Agree with history, exam findings, assessment and plan of care as outlined with the following updates: In brief, Ms Bradley is a 73 year old female with history of afib, HTN, COPD, HFpEF, CKD and dementia admitted from a personal halfway with dyspnea and found to be in afib with RVR. Started on dilt gtt now rate controlled. She reports that she still feels out of breath even with holding herself up in bed. She is concerned that she is not able to find her glasses. Vital signs and nursing notes reviewed. Irregular. Lungs are clear to auscultation. No lower extremity edema. 1. afib with RVR now rate controlled. titrated dilt gtt off, started oral dilt. continue home metoprolol ER 100mg BID. AC with brittany. plan of lexiscan tomorrow. [facility]. Appreciate cardiology recommendations. 2. dyspnea. maybe some element of fluid overload on admission secondary to RVR, but s/p IV lasix. Seems to be euvolemic at this point. ?element of angina? vs deconditioning. lexicscan tomorrow. 3. JESS on CKD. Appear that baseline Cr is around 1.3-1.4. Monitor. avoid nephrotoxic medication and will renally dose medications as appropriate. 4. elevated trop. likely due to afib with RVR, EKG without ischemic changes. trended down. Dipso: pending clinical improvement. Subjective Patient sitting upright in bed in no acute distress. Patient with baseline delirium secondary to alcoholic dementia previously diagnosed. Patient reports difficulties overnight, per nursing report she was frequently yelling and waking up the other patients. Patient tends to perseverate on different topics, frequently referring to leaving her glasses outside the room and just downstairs. She asked me several times during our interview to get her glasses from downstairs and throw them up. Explained to the patient she is in the hospital that there is no stairs, she also keeps attempting to leave the bed on her own despite being on fall precautions. Patient reports recently she has been having difficulty breathing with chest congestion, reports her PCP had given her a dose of Zithromax however her breathing did not improve. She was given 40 mg of Lasix last night in the ED and reports this morning her breathing is better. Patient currently denies, chest pressure, chest pain, shortness of breath, other concerning signs or symptoms of an ACS event. All questions answered, acute concerns relate to rate control for atrial fibrillation, and vol ume status. Physical Exam Physical Exam: General: Elderly female appearing older than stated age wearing a blonde wig HEENT: Normocephalic atraumatic Neck: Normal to visual inspection did not appreciate significant JVD Cardiac: Irregularly irregular rhythm, I did not appreciate significant murmurs, rubs, gallops, normal S1, normal S2, 1+ pedal edema to the knee, negative calf tenderness Respiratory: Bibasilar crackles otherwise clear to auscultation bilaterally with symmetrical chest expansion and no increased work of breathing GI: Bowel sounds present, soft, nontender, nondistended Neuro: Alert and oriented x0, intermittently is able to communicate sensibly Psych: Emotionally labile, scared at times, delusional, thinks that she is at the top of the stairs and keeps requesting people to go downstairs and get her glasses Results & Data Vital Signs (Past 12 Hours) Vital Signs Temp Pulse Pulse Resp BP Pulse Ox Pulse Ox 05/22/19 07:45 36.7 C 82 18 105/76 92 05/22/19 04:14 36.5 C 73 20 130/93 94 05/22/19 00:00 94 05/21/19 22:22 94 05/21/19 22:08 36.5 C 71 20 144/108 H 95 05/21/19 21:37 81 16 135/87 96 Laboratory Results 05/22/19 05/22/19 05/21/19 Range/Units 06:22 06:22 23:00 WBC (4.8-10.8) K/uL RBC (4.2-5.4) M/uL Hgb (12.0-16.0) g/dL Hct (37-47) % MCV (80-100) fL MCH (25-34) pg MCHC (32-36) g/dL RDW Std Deviation (36.4-46.3) fL RDW Coeff of Mario (11.5-14.5) % Plt Count (130-400) K/uL MPV (7.4-10.4) fL Immature Gran % (Auto) % Neut % (Auto) % Lymph % (Auto) % [place] % (Auto) % Eos % (Auto) % Baso % (Auto) % Immature Gran # (Auto) (0.00-0.02) K/uL Neut # (Auto) (1.4-6.5) K/uL Lymph # (Auto) (1.2-3.4) K/uL [place] # (Auto) (0.11-0.59) K/uL Eos # (Auto) (0-0.5) K/uL Baso # (Auto) (0-0.2) K/uL Anisocytosis PT (9.0-12.0) Seconds INR (0.9-1.1) APTT (21.0-31.0) Seconds PTT Ratio Sodium 140 139 (136-145) mmol/L Potassium 4.1 4.1 D (3.5-5.1) mmol/L Chloride 104 106 (98-107) mmol/L Carbon Dioxide 25 (21-32) mmol/L Anion Gap 11.0 13.0 H (3-11) BUN 31 H 30 H (7-18) mg/dl Creatinine 1.73 H 1.73 H D (0.6-1.2) mg/dl Est Cr Clr Drug Dosing 26.9 27.7 ml/min Est GFR ( Amer) 33.8 33.8 Est GFR (Non-Af Amer) 29.2 29.2 BUN/Creatinine Ratio 17.7 17.5 (10-20) Glucose 107 H 116 H (70-99) mg/dl Calcium 9.5 8.8 (8.5-10.1) mg/dl Magnesium 2.3 (1.8-2.4) mg/dl Total Bilirubin (0.2-1) mg/dl AST (15-37) U/L ALT (12-78) U/L Alkaline Phosphatase (45-117) U/L Troponin I Cancelled 0.205 H* 0.210 H* (0-0.045) ng/ml Total Protein (6.4-8.2) gm/dl Albumin (3.4-5.0) gm/dl Globulin (2.5-4.0) gm/dl Albumin/Globulin Ratio (0.9-2) Specimen Hemolysis 05/21/19 05/21/19 05/21/19 Range/Units 20:16 20:16 20:16 WBC 6.56 (4.8-10.8) K/uL RBC 5.28 (4.2-5.4) M/uL Hgb 15.0 (12.0-16.0) g/dL Hct 48.4 H (37-47) % MCV 91.7 (80-100) fL MCH 28.4 (25-34) pg MCHC 31.0 L (32-36) g/dL RDW Std Deviation 70.5 H (36.4-46.3) fL RDW Coeff of Mario 21.1 H (11.5-14.5) % Plt Count 179 (130-400) K/uL MPV 11.1 H (7.4-10.4) fL Immature Gran % (Auto) 0.3 % Neut % (Auto) 76.8 % Lymph % (Auto) 14.3 % [place] % (Auto) 7.2 % Eos % (Auto) 1.2 % Baso % (Auto) 0.2 % Immature Gran # (Auto) 0.02 (0.00-0.02) K/uL Neut # (Auto) 5.04 (1.4-6.5) K/uL Lymph # (Auto) 0.94 L (1.2-3.4) K/uL [place] # (Auto) 0.47 (0.11-0.59) K/uL Eos # (Auto) 0.08 (0-0.5) K/uL Baso # (Auto) 0.01 (0-0.2) K/uL Anisocytosis Present PT 17.7 H (9.0-12.0) Seconds INR 1.8 H (0.9-1.1) APTT 32.7 H (21.0-31.0) Seconds PTT Ratio 1.2 Sodium 138 (136-145) mmol/L Potassium 5.2 H (3.5-5.1) mmol/L Chloride 105 (98-107) mmol/L Carbon Dioxide 22 (21-32) mmol/L Anion Gap 11.0 (3-11) BUN 31 H (7-18) mg/dl Creatinine 2.04 H (0.6-1.2) mg/dl Est Cr Clr Drug Dosing 23.5 ml/min Est GFR ( Amer) 27.7 Est GFR (Non-Af Amer) 23.9 BUN/Creatinine Ratio 15.1 (10-20) Glucose 122 H (70-99) mg/dl Calcium 8.9 (8.5-10.1) mg/dl Magnesium 1.7 L (1.8-2.4) mg/dl Total Bilirubin 1.2 H (0.2-1) mg/dl AST 44 H (15-37) U/L ALT 25 (12-78) U/L Alkaline Phosphatase 63 (45-117) U/L Troponin I 0.179 H* (0-0.045) ng/ml Total Protein 6.0 L (6.4-8.2) gm/dl Albumin 3.2 L (3.4-5.0) gm/dl Globulin 2.8 (2.5-4.0) gm/dl Albumin/Globulin Ratio 1.1 (0.9-2) Specimen Hemolysis Medications Administered Current Inpatient Medications Acetaminophen (Tylenol) 650 mg PO Q4H PRN PRN Reason: Pain or Fever Stop: 06/20/19 22:21 Al Hydrox/Mg Hydrox/Simethicone (Maalox) 15 ml PO Q4H PRN PRN Reason: Dyspepsia Stop: 06/20/19 22:21 Apixaban (Eliquis) 5 mg PO BID [facility] Stop: 06/21/19 08:59 Last Admin: 05/22/19 08:00 Dose: 5 mg Documented by: Docusate Sodium (Colace) 100 mg PO DAILY [facility] Stop: 06/21/19 08:59 Last Admin: 05/22/19 08:00 Dose: 100 mg Documented by: Folic Acid (Folvite) 1 mg PO QAM [facility] Stop: 06/21/19 08:59 Last Admin: 05/22/19 08:00 Dose: 1 mg Documented by: Lorazepam (Ativan) 0.25 mg in 0.5 mls @ 0.5 mls/min IV Q4H PRN PRN Reason: Anxiety Stop: 06/20/19 22:21 Diltiazem HCl 125 mg/ Dextrose 125 mls @ 5 mls/hr IV .Q24H MAURISIO; Protocol Stop: 06/20/19 22:21 Last Titration: 05/22/19 07:06 Dose: 5 mg/hr, 5 mls/hr Documented by: Levalbuterol HCl (Xopenex 1.25mg/3ml Neb) 1.25 mg NEB Q6H PRN PRN Reason: SOB/wheezing Stop: 06/20/19 22:21 Magnesium Hydroxide (Milk Of Magnesia) 30 ml PO Q12H PRN PRN Reason: Constipation Stop: 06/20/19 22:21 Magnesium Oxide (Mag-Ox) 400 mg PO DAILY [facility] Stop: 06/21/19 08:59 Last Admin: 05/22/19 08:00 Dose: 400 mg Documented by: Metoprolol Succinate (Toprol Xl) 100 mg PO BID [facility] Stop: 06/21/19 08:59 Last Admin: 05/22/19 08:00 Dose: 100 mg Documented by: Quetiapine Fumarate (Seroquel) 100 mg PO QPM [facility] Stop: 06/21/19 20:59 Sertraline HCl (Zoloft) 75 mg PO QAM [facility] Stop: 06/21/19 08:59 Last Admin: 05/22/19 08:01 Dose: 75 mg Documented by: Thiamine HCl (Vitamin B-1) 100 mg PO DAILY [facility] Stop: 06/21/19 08:59 Last Admin: 05/22/19 08:01 Dose: 100 mg Documented by: Resident Activity Tracking Resident Involvement: Resident Care Provided Care Provided: Adult [facility] Medicine
--- NOTE | 2019-05-22 12:13 | Cardiology Consultation ---
Date of Consultation May 22, 2019 Assessment & Plan (1) Atrial fibrillation, rapid: She has a history of permanent atrial fibrillation. She was recently admitted with atrial fibrillation and elevated ventricular rates. He presented again with high ventricular rates. Precipitated these higher rates his unclear. With this was reactionary due to an element of pulmonary edema, anxiety or overall weakness is unclear. However, she seems to have responded quite well to a diltiazem infusion. I think would be reasonable to try her on some oral diltiazem to monitor her rates. She will continue on systemic anticoagulation. (2) Elevated troponin: She has very mild elevations in her cardiac biomarkers. This was true during prior admissions but not the most recent admission. In the setting of nonsustained ventricular tachycardia mildly reduced LV systolic function noted during her last admission I think would be reasonable to perform perfusion imaging. She will continue on her beta-edwin and anticoagulation. 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 (3) Ventricular tachycardia: She had some nonsustained ventricular tachycardia on her telemetry. Again, in the setting of mildly reduced LV systolic function and elevated biomarkers at the would be reasonable to perform an evaluation for ischemia. Perfusion imaging schedule for tomorrow. History of Present Illness Reason for Consultation: Atrial fibrillation Requesting Physician: Ban Attending Physician: Ian Zhao DO History of Present Illness The patient is a 73-year-old woman with a history of permanent atrial fibrillation and diastolic heart failure recently admitted for decompensated diastolic heart failure and atrial fibrillation with rapid ventricular rates. A ccording to her records she was found at her assisted living facility on the floor. The patient was able to provide some history regarding the event but seemed confused at times and contradicted herself at other times. She states that she has been unsteady on her feet for several years. She says that she was attempting to ambulate at her residence when she became weak and fell to the ground. She did not report losing consciousness. Afterward she was quite dyspneic and had difficulty getting up from the ground. She was able to call for assistance and was brought to the emergency room due to a rapid heart rate. It is unclear whether she was dyspneic leading up to this event. She reports dizziness on occasion but it was not clearly associated with this event. She denies symptoms of chest pain. She was aware of palpitations. She has her medicines administered at the facility and managed for her. She does report using salt with meals. She did not report recent swelling in her l ower extremities or orthopnea. Allergies Allergy/AdvReac Type Severity Reaction Status Date / Time Penicillins Allergy Unknown CAN'T Verified 05/21/19 21:01 REMEMBER Macrolide Antibiotics Allergy Unknown Verified 05/21/19 21:01 [facility] [employer] Allergy Unknown CAN'T Uncoded 05/02/19 12:59 REMEMBER-SEE COMMENT Home Medications Home Medications Medication Instructions Recorded Confirmed Type Eliquis 5 mg PO BID #60 tab 05/07/19 05/21/19 Rx acetaminophen [Tylenol Extra 500 mg PO TID PRN #30 tab 05/07/19 05/21/19 Rx Strength] biotin 1,000 mcg PO QAM #30 tab 05/07/19 05/21/19 Rx docusate sodium 100 mg PO DAILY #60 tab 05/07/19 05/21/19 Rx folic acid 1 mg PO QAM #30 tab 05/07/19 05/21/19 Rx magnesium oxide [MagOx] 400 mg PO DAILY #30 tab 05/07/19 05/21/19 Rx metoprolol succinate 100 mg PO BID #60 tab 05/07/19 05/21/19 Rx quetiapine 100 mg PO QPM #30 tab 05/07/19 05/21/19 Rx sennosides-docusate sodium 1 tab-cap PO DAILY PRN #30 tab 05/07/19 05/21/19 Rx [Senna-S] sertraline 25 mg PO QAM #30 tab 05/07/19 05/21/19 Rx sertraline 50 mg PO QAM #30 tab 05/07/19 05/21/19 Rx thiamine HCl (vitamin B1) [Vitamin 100 mg PO DAILY #30 tab 05/07/19 05/21/19 Rx B-1] albuterol sulfate [Ventolin HFA] 2 puff INHALATION DAILY 05/21/19 05/21/19 History Patient History Medical History Atrial fibrillation (Inactive) Chronic alcohol abuse Depression Hx of falling Hypertension (Chronic) Insomnia Pneumonia (Resolved) Tobacco abuse Surgical History H/O: hysterectomy H/O: hysterectomy Family History Mother , age 70 of uncertain causes No problems noted. Father , The mid-60s of a rare bone cancer No problems noted. 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 Feels Safe at Home: Yes Safety Concerns: Feels Safe At This Time Smoking Status: Former smoker Tobacco Type: cigarettes ; Cigarettes Per Day: Half a pack per day ; Second Hand Exposure: No ; Hx Substance Use: No Review of Systems Review of Systems: All systems reviewed & are unremarkable except as noted in HPI & below She does report feeling anxious at times. She seem to be somewhat depressed today. Physical Exam Physical Exam: She is alert and oriented x3. Mood affect appear normal. She answered all questions appropriately. HEENT: Sclerae are anicteric. Pupils are equal and reactive to light and accommodation. Extraocular movements were intact. Neuro: Cranial nerves intact Neck: Examination of the submandibular region did not reveal any significant lymphadenopathy. Carotids are palpable bilaterally and free of bruits on auscultation. There was no evidence of jugular venous distention. The thyroid was not enlarged. Lungs: Lungs are clear to auscultation bilaterally. There are no rales wheezes or rhonchi. She has normal respiratory effort without use of accessory muscles. There is normal pulmonary excursion. Cardiac: The rhythm was irregular. S1 and S2 were normal. Holosystolic murmur of variable intensity. The PMI was not markedly displaced on palpation. Abdomen: The abdomen was soft and nontender. Extremities: Patient has bilateral radial pulses that are equal in intensity. There is no evidence cyanosis or clubbing. Mild lower extremity edema bilaterally. Skin: There are no rashes noted on examination today. Results & Data Vital Signs (Past 12 Hours) Vital Signs Temp Pulse Resp BP Pulse Ox 05/22/19 11:15 36.4 C L 84 19 130/89 94 05/22/19 07:45 36.7 C 82 18 105/76 92 05/22/19 04:14 36.5 C 73 20 130/93 94 Laboratory Results Abnormal Lab Results 05/21/19 05/21/19 05/21/19 20:16 20:16 20:16 WBC 6.56 RBC 5.28 Hgb 15.0 Hct 48.4 H MCV 91.7 MCH 28.4 MCHC 31.0 L RDW Std Deviation 70.5 H RDW Coeff of Mario 21.1 H Plt Count 179 MPV 11.1 H Immature Gran % (Auto) 0.3 Neut % (Auto) 76.8 Lymph % (Auto) 14.3 [place] % (Auto) 7.2 Eos % (Auto) 1.2 Baso % (Auto) 0.2 Immature Gran # (Auto) 0.02 Neut # (Auto) 5.04 Lymph # (Auto) 0.94 L [place] # (Auto) 0.47 Eos # (Auto) 0.08 Baso # (Auto) 0.01 Anisocytosis Present PT 17.7 H INR 1.8 H APTT 32.7 H PTT Ratio 1.2 Sodium 138 Potassium 5.2 H Chloride 105 Carbon Dioxide 22 Anion Gap 11.0 BUN 31 H Creatinine 2.04 H Est Cr Clr Drug Dosing 23.5 Est GFR ( Amer) 27.7 Est GFR (Non-Af Amer) 23.9 BUN/Creatinine Ratio 15.1 Glucose 122 H Calcium 8.9 Magnesium 1.7 L Total Bilirubin 1.2 H AST 44 H ALT 25 Alkaline Phosphatase 63 Troponin I 0.179 H* Total Protein 6.0 L Albumin 3.2 L Globulin 2.8 Albumin/Globulin Ratio 1.1 Specimen Hemolysis 05/21/19 05/22/19 05/22/19 23:00 06:22 06:22 WBC RBC Hgb Hct MCV MCH MCHC RDW Std Deviation RDW Coeff of Mario Plt Count MPV Immature Gran % (Auto) Neut % (Auto) Lymph % (Auto) [place] % (Auto) Eos % (Auto) Baso % (Auto) Immature Gran # (Auto) Neut # (Auto) Lymph # (Auto) [place] # (Auto) Eos # (Auto) Baso # (Auto) Anisocytosis PT INR APTT PTT Ratio Sodium 139 140 Potassium 4.1 D 4.1 Chloride 106 104 Carbon Dioxide 25 Anion Gap 13.0 H 11.0 BUN 30 H 31 H Creatinine 1.73 H D 1.73 H Est Cr Clr Drug Dosing 27.7 26.9 Est GFR ( Amer) 33.8 33.8 Est GFR (Non-Af Amer) 29.2 29.2 BUN/Creatinine Ratio 17.5 17.7 Glucose 116 H 107 H Calcium 8.8 9.5 Magnesium 2.3 Total Bilirubin AST ALT Alkaline Phosphatase Troponin I 0.210 H* 0.205 H* Cancelled Total Protein Albumin Globulin Albumin/Globulin Ratio Specimen Hemolysis Diagnostic Findings Echocardiogram obtained 05/03/2019: Ejection fraction 50%. Moderate mitral regurgitation. PG Care Time/CCT Total # of Minutes Spent Total Time Spent with Patient: Total time spent is greater than 50% in coordination of care (as documented) at patient's floor/unit and/or counseling patient:
[2019-05-22] MEDS ORDERED: HALOPERIDOL LACTATE 5 MG/ML 1 ML VIAL IM PRN (12:35)
[2019-05-22] MEDS: dilTIAZem HCL 30 MG TAB PO SCH ×2 (14:06→20:04)
[2019-05-22] MEDS: POLYETHYLENE (MIRALAX) 17 GM PACK PO SCH (14:06)
[2019-05-22] MEDS ORDERED: QUETIAPINE FUMARATE 100 MG TABLET PO SCH (21:00)
--- NOTE | 2019-05-23 06:48 | XRay Report ---
XR chest 1V portable CLINICAL HISTORY: Shortness of breath. COMPARISON STUDY: Chest radiograph May 21, 2019. FINDINGS: Small right and trace left pleural effusions are noted. Cardiomegaly is noted without evide nce for pulmonary edema. There is mild right basilar opacity. No pneumothorax is present. IMPRESSION: Small right and trace left pleural effusions with mild right basilar opacity. ACT 112: Negative or not required by law. Electronically signed by: Raymond García M.D. 05/23/2019 6:47 AM
[2019-05-23 07:02] LABS: Basophils # (auto) 0.01 K/uL (0-0.2); Basophils % (auto) 0.2 %; Eosinophils # (auto) 0.25 K/uL (0-0.5); Eosinophils % (auto) 4.7 %; Hematocrit (blood only) 43.9 % (37-47); Hemoglobin 13.6 g/dL (12.0-16.0); Immature Granulocytes # (auto) 0.01 K/uL (0.00-0.02); Immature Granulocytes % (auto) 0.2 %; Lymphocytes # (auto) 0.99 K/uL (1.2-3.4); Lymphocytes % (auto) 18.5 %; Mean Corpuscular Hemoglobin 28.5 pg (25-34); Mean Corpuscular Volume 91.8 fL (80-100); Mean Platelet Volume 10.6 fL (7.4-10.4); Monocytes # (auto) 0.54 K/uL (0.11-0.59); Monocytes % (auto) 10.1 %; Neutrophils # (auto) 3.55 K/uL (1.4-6.5); Neutrophils % (auto) 66.3 %; Platelet Count 136 K/uL (130-400); RDW Standard Deviation 70.2 fL (36.4-46.3); Red Blood Count 4.78 M/uL (4.2-5.4); White Blood Count 5.35 K/uL (4.8-10.8)
[2019-05-23 07:31] LABS: BUN Creatinine Ratio 17.6 (10-20); Creatinine Clr Calc Pharmacy 29.1 ml/min; Est GFR (African American) 37.5; Est GFR (Non-African American) 32.3
[2019-05-23 07:40] LABS: Anisocytosis Present; Echinocytes 1+; Tear Drop Cells 1+
[2019-05-23 07:43] LABS: Phosphorus 3.5 mg/dl (2.5-4.9); Troponin I 0.101 ng/ml (0-0.045)
--- NOTE | 2019-05-23 08:35 | Cardiology Progress Note ---
Date of Service May 23, 2019 Assessment & Plan (1) Atrial fibrillation, rapid: (2) Ventricular tachycardia: (3) Mitral regurgitation: (4) Elevated troponin: ASSESSMENT/PLAN: 1. AFib with RVR: Heart rate improved. Will increase diltiazem to 60 mg t.i.d. to further improve heart rate control. Continue metoprolol 100 mg twice daily. Continue anticoagulation for stroke risk reduction. Whenever discharged, diltiazem can be changed to long-acting formulation. 2. Ventricular tachycardia: Had 1 episode of approximately 14 beats earlier this hospitalization, but none within the last 24 hours. Ischemic evaluation has been ordered by Dr. Montgomery. Continue beta-edwin and calcium channel edwin. 3. Elevated troponin: Peak troponin was 0.21. No angina. Has had elevated troponins in the past, low level, similar to this presentation. Myocardial perfusion study pending, if she is able to lay flat and follow directions. 4. Mitral regurgitation: Non severe. Can be monitored over time as appropriate. 5. Disposition: Cardiology will continue to follow while hospitalized. Subjective She denies chest pain. She said her breathing is better. She has no complaints at this time. She is noticeably confused, mumbling at times, and her history is likely unreliable. She does answer questions appropriately at times as well. Review of systems: As above. Physical Exam Physical Exam: Gen.: No acute distress. Alert and oriented to place and year. HEENT: Anicteric sclera. Neck: No JVD. Cardiac: PMI was nondisplaced. No ventricular heave. Irregularly irregular with normal heart rate. Normal S1-S2. No murmurs, rubs, or gallops. Pulmonary: Clear to auscultation bilaterally without wheezes, rales, or rhonchi. Abdomen: Soft, nontender, nondistended, with normoactive bowel sounds. No bruits noted. Extremities: 2+ radial pulses bilaterally. No pitting edema. No cyanosis. Results & Data Vital Signs (Past 12 Hours) Vital Signs Temp Pulse Pulse Resp BP Pulse Ox 05/23/19 04:00 36.4 C L 123 H 98 H 20 114/54 L 95 05/23/19 00:15 110/50 L 05/22/19 23:45 111/53 L 05/22/19 23:40 36.4 C L 177/115 H Intake & Output 05/21/19 05/22/19 05/23/19 05/24/19 06:59 06:59 06:59 06:59 Intake Total 750 / 750 598.333 / 598.333 Output Total 500 / 500 Balance 750 / 750 98.333 / 98.333 Weight 67.6 kg 67 kg Laboratory Results Laboratory Results - last 24 hr 05/22/19 05/23/19 05/23/19 23:43 06:45 06:45 WBC 5.35 RBC 4.78 Hgb 13.6 Hct 43.9 MCV 91.8 MCH 28.5 MCHC 31.0 L RDW Std Deviation 70.2 H RDW Coeff of Mario 21.0 H Plt Count 136 MPV 10.6 H Immature Gran % (Auto) 0.2 Neut % (Auto) 66.3 Lymph % (Auto) 18.5 Snyder % (Auto) 10.1 Eos % (Auto) 4.7 Baso % (Auto) 0.2 Immature Gran # (Auto) 0.01 Neut # (Auto) 3.55 Lymph # (Auto) 0.99 L Snyder # (Auto) 0.54 Eos # (Auto) 0.25 Baso # (Auto) 0.01 Anisocytosis Present Tear Drop Cells 1+ Echinocytes 1+ Sodium 140 Potassium 4.0 Chloride 106 Carbon Dioxide 27 Anion Gap 7.0 BUN 28 H Creatinine 1.59 H Est Cr Clr Drug Dosing 29.1 Est GFR ( Amer) 37.5 Est GFR (Non-Af Amer) 32.3 BUN/Creatinine Ratio 17.6 Glucose 84 POC Glucose 82 Calcium 9.0 Phosphorus 3.5 Magnesium 2.0 Troponin I 0.101 H* Diagnostic Findings Telemetry personally reviewed: Atrial fibrillation. Heart rate acceptable at times, with occasional tachycardia. No further ventricular tachycardia. ECG personally reviewed: ECG 05/22/2019: AFib 78 bpm. Inferolateral T-wave abnormality. Medications Administered Current Inpatient Medications Acetaminophen (Tylenol) 650 mg PO Q4H PRN PRN Reason: Pain or Fever Stop: 06/20/19 22:21 Al Hydrox/Mg Hydrox/Simethicone (Maalox) 15 ml PO Q4H PRN PRN Reason: Dyspepsia Stop: 06/20/19 22:21 Apixaban (Eliquis) 5 mg PO BID [facility] Stop: 06/21/19 08:59 Last Admin: 05/22/19 20:04 Dose: 5 mg Documented by: Diltiazem HCl (Cardizem) 60 mg PO TID [facility] Stop: 06/22/19 08:59 Docusate Sodium (Colace) 100 mg PO DAILY [facility] Stop: 06/21/19 08:59 Last Admin: 05/22/19 08:00 Dose: 100 mg Documented by: Folic Acid (Folvite) 1 mg PO QAM [facility] Stop: 06/21/19 08:59 Last Admin: 05/22/19 08:00 Dose: 1 mg Documented by: Haloperidol Lactate (Haldol) 2 mg IM UD PRN PRN Reason: aggresion Stop: 06/21/19 12:34 Levalbuterol HCl (Xopenex 1.25mg/3ml Neb) 1.25 mg NEB Q6H PRN PRN Reason: SOB/wheezing Stop: 06/20/19 22:21 Magnesium Hydroxide (Milk Of Magnesia) 30 ml PO Q12H PRN PRN Reason: Constipation Stop: 06/20/19 22:21 Magnesium Oxide (Mag-Ox) 400 mg PO DAILY [facility] Stop: 06/21/19 08:59 Last Admin: 05/22/19 08:00 Dose: 400 mg Documented by: Metoprolol Succinate (Toprol Xl) 100 mg PO BID [facility] Stop: 06/21/19 08:59 Last Admin: 05/22/19 20:04 Dose: 100 mg Documented by: Polyethylene Glycol (Miralax Powder Packet) 17 gm PO DAILY [facility] Stop: 06/21/19 12:44 Last Admin: 05/22/19 14:06 Dose: 17 gm Documented by: Quetiapine Fumarate (Seroquel) 100 mg PO QPM [facility] Stop: 06/21/19 20:59 Last Admin: 05/22/19 20:04 Dose: 100 mg Documented by: Sertraline HCl (Zoloft) 75 mg PO QAM [facility] Stop: 06/21/19 08:59 Last Admin: 05/22/19 08:01 Dose: 75 mg Documented by: Thiamine HCl (Vitamin B-1) 100 mg PO DAILY [facility] Stop: 06/21/19 08:59 Last Admin: 05/22/19 08:01 Dose: 100 mg Documented by: PG Care Time/CCT Total # of Minutes Spent Total Time Spent with Patient: Total time spent is greater than 50% in coordination of care (as documented) at patient's floor/unit and/or counseling patient:
[2019-05-23 09:41] LABS: Appearance Urine Clear (Clear); Bilirubin Urine Negative (Negative); Blood Urine Negative (Negative); Color Urine Dark Yellow; Glucose Urine UA Negative (Negative); Ketones Urine Negative (Negative); Leukocyte Esterase Urine Negative (Negative); Nitrite Urine Negative (Negative); Protein Urine Negative (Negative); Specific Gravity Urine 1.022 (1.000-1.030); Urobilinogen Urine Negative (Negative)
[2019-05-23] MEDS: MAGNESIUM OXIDE 400 MG TAB PO SCH (10:14)
[2019-05-23] MEDS: APIXABAN 5 MG TABLET PO SCH (10:14)
[2019-05-23] MEDS: DOCUSATE SODIUM 100 MG CAP PO SCH (10:14)
[2019-05-23] MEDS: METOPROLOL SUCC 50MG EXT REL TAB PO SCH (10:14)
[2019-05-23] MEDS: THIAMINE HCL 100 MG TAB PO SCH (10:14)
[2019-05-23] MEDS: FOLIC ACID 1 MG TAB PO SCH (10:14)
[2019-05-23] MEDS: SERTRALINE HCL 50 MG TABLET PO SCH (10:15)
[2019-05-23] MEDS: POLYETHYLENE (MIRALAX) 17 GM PACK PO SCH (10:15)
[2019-05-23] MEDS: dilTIAZem HCl 60 MG TAB PO SCH ×2 (10:16→13:02)
--- NOTE | 2019-05-23 10:48 | Discharge Summary ---
Date of Service May 23, 2019 Admission HPI Per Admitting Provider 73 y/o F Hx HTN, AF, COPD, diastolic CHF, CKD III, ETOH dementia. Presents from a care facility where she was found on the ground. She had apparently lowered herself to the ground due to shortness of breath and weakness while walking across her room. She has not had CP a productive cough or fevers. She was sent to the ER where rapid AF was confirmed on arrival. Initial labs are notable for acute on chronic RF, mild hyperK and an elevated troponin which she has had during prior episodes of rapid AF. The pt was recently admitted for rapid AF, volume overload and an elevated trop. She was DCd 05/09/19. Her elevated trop was deemed due to demand rather than CAD at that time. PMH: 1) HTN 2) Chronic AF 3) COPD 4) Diastolic CHF - grade I 5) Alcoholic dementia 6) CKD III Surgical: Limited to hysterectomy Social: The pt until recently abused both alcohol and cigarettes, having quit both in late 2018. Family: Mother due to complications of DM Father had heart disease Admission Exam Per Admitting Provider General: AAO x 2, no distress ENT: No erythema or exudates, no thrush Eyes: LILIYA, EOMI Head and neck: Normocephalic, atraumatic, + JVD, neck is supple. Chest/heart: Nontender, S1,2, irr, faint, no murmurs, no gallops Lungs: Very poor air movement and BL crackles at the bases Abdomen: Nontender, nondistended, BS+ Neuro: AAO x 3, speech is clear, no unilateral weakness or loss of sensation, coordination intact Musculoskeletal: No joint inflammation, muscle tenderness, FROM Skin: No acute rashes or ulcers Extremities: No clubbing, cyanosis - BL edema present Principal Diagnosis A. fib with RVR, alcoholic dementia Discharge Exam General: Elderly female appearing older than stated age wearing a blonde wig HEENT: Normocephalic atraumatic Neck: Normal to visual inspection did not appreciate significant JVD Cardiac: Irregularly irregular rhythm, I did not appreciate significant murmurs, rubs, gallops, normal S1, normal S2, 1+ pedal edema to the knee, negative calf tenderness Respiratory: Bibasilar crackles otherwise clear to auscultation bilaterally with symmetrical chest expansion and no increased work of breathing GI: Bowel sounds present, soft, nontender, nondistended Neuro: Alert and oriented x0, intermittently is able to communicate sensibly. CN II through XII intact, EOMI, PERRLA, strength intact, able to follow commands, finger-nose intact, cerebellar function intact, no focal findings Psych: Emotionally labile, scared at times, delusional, Discharge Data Allergies Allergy/AdvReac Type Severity Reaction Status Date / Time Penicillins Allergy Unknown CAN'T Verified 05/21/19 21:01 REMEMBER Macrolide Antibiotics Allergy Unknown Verified 05/21/19 21:01 MYCIN FAMILY DRUGS Allergy Unknown CAN'T Uncoded 05/02/19 12:59 REMEMBER-SEE COMMENT Consultations 05/21/19 21:17 ED Decision to Admit Stat 05/22/19 11:08 Consult Cardiology Routine Hospital Course (1) Atrial fibrillation, rapid: Patient is a 73-year-old female with a past medical history of hypertension, atrial fibrillation, COPD, diastolic congestive heart failure, chronic kidney disease stage III, alcoholic dementia, former smoker who presented to the hospital after being found down at a care facility. Per reports she had lowered herself to the ground after experiencing shortness of breath and weakness, she recently denied chest pain, cough, fever. On arrival in the emergency department she was found to be in atrial fibrillation with rapid ventricular response and started on a diltiazem drip, labs were notable for an JESS, she also reports recent history of dyspnea that failed to improve despite treatment of antibiotic therapy. Of note patient was recently hospitalized on 05/07/19 for similar complaints. Patient was started on a diltiazem drip in the emergency department and transferred to the PCU for further evaluation and management. #AFIB Patient with a history of A. fib with rapid ventricular response on anticoagulation with Eliquis recently discharged from [facility] on 05/07/2019 for an episode of atrial fibrillation with RVR presented to the hospital found to be in atrial fibrillation with RVR. She was started on a diltiazem drip and continued on her home beta-blockers, achieving rate control was transferred to the floor. Currently she denies chest pressure, chest pain, shortness of breath. Given this is her second bout of atrial fibrillation with RVR in 1 month, cardiology was consulted for medication recommendations. Cardiology recommended starting diltiazem patient currently receiving 60 mg short-acting 3 times daily will be converted to 180 mg XR on discharge. Patient becomes intermittently tachycardic is likely related to her anxiety, and spontaneously resolves. Most recent echo from 05/03 demonstrated EF 45 to 50% with moderate mitral regurg and no regional wall motion abnormality Patient was scheduled for nuclear stress test on 05/23, however was unable follow instructions and therefore was unable to complete the exam. Patient to follow-up with cardiology in the outpatient setting. #JESS in the setting of CKD stage III Patient presented to the hospital with a creatinine of 1.73, and a GFR of 29.2 demonstrating acute kidney injury in the setting of chronic kidney disease, BUN was elevated to 31. Upon review of records it appears that the patient's baseline creatinine appears to be between 1.2 and 1.5, given her that she appeared fluid overloaded at presentation, will hold off on fluids for now. BMP was trended throughout the hospitalization and her creatinine continued to improve. On the day of discharge creatinine was 1.59, expect continued improvement upon return to [facility] -Avoid nephrotoxic medications #Dyspnea Patient reports a recent history of dyspnea prior to presentation to the hospital. She states that her PCP treated her with a course of Zithromax however her breathing had not improved. Upon presentation to the emergency department she was administered 40 mg IV Lasix, and diuresed overnight. Patient with 1+ bilateral pitting edema to the knees on physical examination, and bibasi lar crackles. Currently given her JESS would refrain from further diuresis until kidney function improves. At this point cardiology does not recommend addition of daily outpatient Lasix. They will be following up with her in the outpatient world and will discuss further. #Elevated troponin (resolved) On presentation to the [facility] emergency department the patient had an elevated troponin to 0.179, this was trended x3, peaked at 0.210, and down trended to 0.205. EKG without evidence of ACS, patient asymptomatic. Upon review of her records, patient had an elevated troponin during her last presentation to the hospital for A. fib with RVR. Collectively these troponin elevations likely represent demand ischemia. #Alcoholic dementia Patient carries a diagnosis of alcoholic dementia, previously diagnosed at a prior admission. Patient is intermittently able to participate in conversation, however is alert and oriented x0. Patient frequently becomes upset when she has bouts of confusion. Patient's home medications were continued throughout the hospitalization, dimension precautions were initiated. At roughly 2300 on 05/22 the patient had become increasingly agitated, and a PRN dose of lorazepam was given. The patient then became profoundly altered, she was evaluated by the nighttime resident who found no focal neuro findings, she was reassessed throughout the evenings and still continued to have no focal neuro findings, she was able to follow commands, had an intact neurological exam, and no other conc erning signs or symptoms that would indicate that this is a stroke. She continued to improve throughout the evening. I assessed her first thing in the morning on 05/23 and she had made some improvement compared to the night resident's report, she continued to improve throughout the morning. At roughly 11:00 on 05/23 we assessed her as a team and she had made significant improvement and appeared to be back at baseline. -Dementia precautions, windows open during the day, quiet dark room at night -Continue thiamine 100 mg p.o. daily -Continue quetiapine 100 mg p.o. every afternoon Continue sertraline 75 mg p.o. every morning Would consider outpatient psych consultation for medication management. #Agitation Patient was disruptive to other patients in the hospital overnight and nursing staff. Frequently having outbursts and waking the other patients. C alcoholic dementia #Weakness Patient reports history of weakness with associated falls. Patient placed on fall precautions. Will consult PT/OT depending on patient's length of stay. Patient is already receiving PT/OT at her care facility. FENa: Heart healthy Code Status: Full code DVT PPX: Eliquis PT/OT: Not indicated, patient presently in a care facility Dispo: Mary Ann Reed MD PGY 2, [facility] This chart was completed utilizing [employer] voice recognition software. Grammatical errors, random word insertions, pronoun errors, and in complete sentences are an occasional consequence of the system. Any questions or concerns about the content, text, or information contained within the body of this dictation should be addressed directly to the physician for clarification. (2) Elevated troponin: (3) Weakness: (4) JESS (acute kidney injury): (5) Anxiety: (6) CKD (chronic kidney disease) stage 3, GFR 30-59 ml/min: (7) Alcoholic dementia: (8) Acute diastolic CHF (congestive heart failure): (9) Hx of falling: Total Time Total Time Spent Total Time Spent (In Minutes): See attendings documentation Discharge Plan Discharge Items Patient Disposition: Trans Resident Long-Term Care Reason For Visit: RAPID AF,SOB Discharge Diagnosis: Atrial fibrillation with rapid ventricular response, alcoholic dementia Activity: Resume your previous activity Non-emergency contact: Primary Care Provider Call non-emergency contact if: your symptoms worsen and you have a fever Follow-up/Referrals: Nathan Alex [Primary Care Provider] - Diet: Heart Healthy Addtl Attending Provider Instructions: *Mary Ann Colon To DO* -Patient will be discharged with a home pack containing 1 dose of short acting diltiazem 60 mg, and 2 doses of long-acting diltiazem 180 mg. -She is to receive the short acting dose of diltiazem this evening -She is to receive the long-acting dose of diltiazem tomorrow morning and to be maintained on that. Patient is a 73-year-old female with a past medical history of hypertension, atrial fibrillation, COPD, diastolic congestive heart failure, chronic kidney disease stage III, alcoholic dementia, former smoker who presented to the hospital after being found down at a care facility. Per reports she had lowered herself to the ground after experiencing shortness of breath and weakness, she recently denied chest pain, cough, fever. On arrival in the emergency department she was found to be in atrial fibrillation with rapid ventricular response and started on a diltiazem drip, labs were notable for an JESS, she also reports recent history of dyspnea that failed to improve despite treatment of antibiotic therapy. Of note patient was recently hospitalized on 05/07/19 for similar complaints. Patient was started on a diltiazem drip in the emergency department and transferred to the PCU for further evaluation and management. #AFIB Patient with a history of A. fib with rapid ventricular response on anticoagulation with Eliquis recently discharged from [facility] on 05/07/2019 for an episode of atrial fibrillation with RVR presented to the hospital found to be in atrial fibrillation with RVR. She was started on a diltiazem drip and continued on her home beta-blockers, achieving rate control was transferred to the floor. Currently she denies chest pressure, chest pain, shortness of breath. Given this is her second bout of atrial fibrillation with RVR in 1 month, cardiology was consulted for medication recommendations. Cardiology recommended starting diltiazem patient currently receiving 60 mg short-acting 3 times daily will be converted to 180 mg XR on discharge. Patient becomes intermittently tachycardic is likely related to her anxiety, and spontaneously resolves. Most recent echo from 05/03 demonstrated EF 45 to 50% with moderate mitral regurg and no regional wall motion abnormality Patient was scheduled for nuclear stress test on 05/23, however was unable follow instructions and therefore was unable to complete the exam. Patient to follow-up with cardiology in the outpatient setting. #JESS in the setting of CKD stage III Patient presented to the hospital with a creatinine of 1.73, and a GFR of 29.2 demonstrating acute kidney injury in the setting of chronic kidney disease, BUN was elevated to 31. Upon review of records it appears that the patient's baseline creatinine appears to be between 1.2 and 1.5, given her that she appeared fluid overloaded at presentation, will hold off on fluids for now. BMP was trended throughout the hospitalization and her creatinine continued to improve. On the day of discharge creatinine was 1.59, expect continued improvement upon return to [facility] -Avoid nephrotoxic medications #Dyspnea Patient reports a recent history of dyspnea prior to presentation to the hospital. She states that her PCP treated her with a course of Zithromax however her breathing had not improved. Upon presentation to the emergency department she was administered 40 mg IV Lasix, and diuresed overnight. Patient with 1+ bilateral pitting edema to the knees on physical examination, and bibasilar crackles. Currently given her JESS would refrain from further diuresis until kidney function improves. At this point cardiology does not recommend addition of daily outpatient Lasix. They will be following up with her in the outpatient world and will discuss further. #Elevated troponin (resolved) On presentation to the [facility] emergency department the patient had an elevated troponin to 0.179, this was trended x3, peaked at 0.210, and down trended to 0.205. EKG without evidence of ACS, patient asymptomatic. Upon review of her records, patient had an elevated troponin during her last presentation to the hospital for A. fib with RVR. Collectively these troponin elevations likely represent demand ischemia. #Alcoholic dementia Patient carries a diagnosis of alcoholic dementia, previously diagnosed at a prior admission. Patient is intermittently able to participate in conversation, however is alert and oriented x0. Patient frequently becomes upset when she has bouts of confusion. Patient's home medications were continued throughout the hospitalization, dimension precautions were initiated. At roughly 2300 on 05/22 the patient had become increasingly agitated, and a PRN dose of lorazepam was given. The patient then became profoundly altered, she was evaluated by the nighttime resident who found no focal neuro findings, she was reassessed throughout the evenings and still continued to have no focal neuro findings, she was able to follow commands, had an intact neurological exam, and no other concerning signs or symptoms that would indicate that this is a stroke. She continued to improve throughout the evening. I assessed her first thing in the morning on 05/23 and she had made some improvement compared to the night resident's report, she continued to improve throughout the morning. At roughly 11:00 on 05/23 we assessed her as a team and she had made significant improvement and appeared to be back at baseline. -Dementia precautions, windows open during the day, quiet dark room at night -Continue thiamine 100 mg p.o. daily -Continue quetiapine 100 mg p.o. every afternoon Continue sertraline 75 mg p.o. every morning Would consider outpatient psych consultation for medication management. #Agitation Patient was disruptive to other patients in the hospital overnight and nursing staff. Frequently having outbursts and waking the other patients. C alcoholic dementia #Weakness Patient reports history of weakness with associated falls. Patient placed on fall precautions. Will consult PT/OT depending on patient's length of stay. Patient is already receiving PT/OT at her care facility. FENa: Heart healthy Code Status: Full code DVT PPX: Eliquis PT/OT: Not indicated, patient presently in a care facility Dispo: Mary Ann Reed MD PGY 2, [facility] This chart was completed utilizing [employer] voice recognition software. Grammatical errors, random word insertions, pronoun errors, and in complete sentences are an occasional consequence of the system. Any questions or concerns about the content, text, or information contained within the body of this dictation should be addressed directly to the physician for clarification. Pending Studies at Discharge: No Stand-Alone Forms: My [employer] Skilled Items Patient informed of condition?: Yes DNR: No Discharge Level of Care: Skilled Communicable Disease: No Discharge Prognosis: Improving Lines: None Urinary Catheter: No Medications and DC Order Prescriptions: New diltiazem HCl 180 mg capsule,extended release 24 hr 180 mg PO QAM 30 Days Qty: 30 RF: 0 Continued albuterol sulfate [Ventolin HFA] 90 mcg/actuation HFA aerosol inhaler 2 puff INHALATION DAILY RF: 0 metoprolol succinate 100 mg tablet extended release 24 hr 100 mg PO BID Qty: 60 RF: 0 sennosides-docusate sodium [Senna-S] 8.6-50 mg Tablet 1 tab-cap PO DAILY PRN (Reason: Constipation) Qty: 30 RF: 0 thiamine HCl (vitamin B1) [Vitamin B-1] 100 mg Tablet 100 mg PO DAILY Qty: 30 RF: 0 quetiapine 100 mg Tablet 100 mg PO QPM Qty: 30 RF: 0 acetaminophen [Tylenol Extra Strength] 500 mg Tablet 500 mg PO TID PRN (Reason: Pain) Qty: 30 RF: 0 magnesium oxide [MagOx] 400 mg (241.3 mg magnesium) tablet 400 mg PO DAILY Qty: 30 RF: 0 sertraline 25 mg Tablet 25 mg PO QAM Qty: 30 RF: 0 folic acid 1 mg Tablet 1 mg PO QAM Qty: 30 RF: 0 sertraline 50 mg Tablet 50 mg PO QAM Qty: 30 RF: 0 docusate sodium 100 mg Tablet 100 mg PO DAILY Qty: 60 RF: 0 Eliquis 5 mg Tablet 5 mg PO BID Qty: 60 RF: 0 biotin 1,000 mcg Tablet,Chewable 1,000 mcg PO QAM Qty: 30 RF: 0 Admission Data Admit Date/Time: 05/21/19 21:36 Attending Provider: Ian Zhao Admit Provider: Raymond Chavarria Primary Care Provider: Nathan Alex Other Providers: Raymond Chavarria ; Mark Montgomery Resident Activity Tracking Resident Involvement: Resident Care Provided Care Provided: Adult Hospital Medicine
[2019-05-23] MEDS ORDERED: Nursing to Pharmacy Communication ONE (11:15)
[2019-05-23] MEDS ORDERED: dilTIAZem HCl 60 MG TAB PO SCH (14:00)
[2019-05-24] MEDS ORDERED: dilTIAZem HCL 180 MG CAPCR PO SCH
--- NOTE | 2019-05-24 08:14 | Electrocardiogram Report ---
Test Reason : Blood Pressure : / mmHG Vent. Rate : 078 BPM Atrial Rate : 093 BPM P-R Int : 000 ms QRS Dur : 088 ms QT Int : 396 ms P-R-T Axes : 000 106 -66 degrees QTc Int : 451 ms Poor data quality, interpretation may be adversely affected Atrial fibrillation with premature ventricular or aberrantly conducted complexes Rightward axis Abnormal ECG When compared with ECG of 21-MAY-2019 20:09, Vent. rate has decreased BY 43 BPM Nonspecific T wave abnormality, improved in Lateral leads Confirmed by Oren Montgomery ([id number]) on 05/23/2019 5:36:42 PM Referred By: Nathan Mancini [place] Confirmed By:Musa Montgomery
== END 2019-05-23 13:31 | DRG 308 ==
LOC: ED 20:03 → 2S 21:36 → SUATTDRO 21:36 → 2S 21:55

== ENCOUNTER 2019-05-29 11:52 | Inpatient (IN) ==
[2019-05-29] MEDS ORDERED: DEXTROSE 50% 50 ML SYRINGE IV ONE ×3 (12:13→12:58)
[2019-05-29] MEDS ORDERED: SODIUM CHLORIDE 0.9% 500 ML IV ONE ×2 (12:26→13:58)
[2019-05-29] MEDS ORDERED: D5W AND NSS 1,000 ML IV STA (13:00)
[2019-05-29 13:05] LABS: Basophils # (auto) 0.01 K/uL (0-0.2); Basophils % (auto) 0.1 %; Eosinophils # (auto) 0.12 K/uL (0-0.5); Eosinophils % (auto) 1.8 %; Hematocrit (blood only) 28.4 % (37-47); Immature Granulocytes # (auto) 0.01 K/uL (0.00-0.02); Immature Granulocytes % (auto) 0.1 %; Lymphocytes # (auto) 0.83 K/uL (1.2-3.4); Lymphocytes % (auto) 12.4 %; Mean Corpuscular Hemoglobin 28.7 pg (25-34); Mean Corpuscular Hgb Conc 31.7 g/dL (32-36); Mean Corpuscular Volume 90.4 fL (80-100); Mean Platelet Volume 10.2 fL (7.4-10.4); Monocytes # (auto) 0.53 K/uL (0.11-0.59); Monocytes % (auto) 7.9 %; Neutrophils # (auto) 5.19 K/uL (1.4-6.5); Neutrophils % (auto) 77.7 %; Platelet Count 136 K/uL (130-400); RDW Coefficient of Variation 21.2 % (11.5-14.5); RDW Standard Deviation 69.5 fL (36.4-46.3); Red Blood Count 3.14 M/uL (4.2-5.4); White Blood Count 6.69 K/uL (4.8-10.8)
[2019-05-29 13:07] LABS: HCO3 ABG 22 mmol/L (19-24); Oxygen Saturation ABG 95.2 % (90-95); PCO2 ABG 31 mmHg (35-46); PO2 ABG 75 mm/Hg (80-95); pH ABG 7.48 (7.35-7.45)
[2019-05-29 13:09] LABS: Allen Test Pos (Pos)
[2019-05-29 13:24] LABS: Albumin Level 2.3 gm/dl (3.4-5.0); BUN Creatinine Ratio 14.7 (10-20); Calcium 7.9 mg/dl (8.5-10.1); Creatinine Clr Calc Pharmacy 28.2 ml/min; Est GFR (African American) 35.8; Est GFR (Non-African American) 30.9; INR 1.9 (0.9-1.1); Magnesium 1.5 mg/dl (1.8-2.4); Partial Thromboplastin Ratio 1.8; Potassium 3.9 mmol/L (3.5-5.1); Prothrombin Time 18.2 Seconds (9.0-12.0)
[2019-05-29 13:25] LABS: Anisocytosis Present
[2019-05-29 13:36] LABS: Albumin Globulin Ratio 1.1 (0.9-2); Globulin 2.2 gm/dl (2.5-4.0); Phosphorus 3.7 mg/dl (2.5-4.9); Total Protein 4.5 gm/dl (6.4-8.2); Troponin I 0.241 ng/ml (0-0.045)
[2019-05-29] MEDS ORDERED: THIAMINE HCL 100 MG in SYRINGE 9 ML IV STA (13:45)
--- NOTE | 2019-05-29 14:03 | XRay Report ---
XR chest 1V portable CLINICAL HISTORY: Sepsis. COMPARISON STUDY: Chest radiograph May 25, 2019. FINDINGS: A small right pleural effusion is noted. Right basilar opacity has slightly increased since prior exam. Note is made of moderate cardiomegaly. There is no evidence for pulmonary edema. No pneu mothorax is present. IMPRESSION: 1. Increase in right basilar opacity which may reflect pneumonia or atelectasis. 2. Small right pleural effusion. 3. Moderate cardiomegaly without evidence for pulmonary edema. ACT 112: Negative or not required by law. Electronically signed by: Raymond García M.D. 05/29/2019 2:02 PM
[2019-05-29 14:07] LABS: iSTAT Creatinine 1.6 mg/dl (0.6-1.3); iSTAT Hemoglobin 9.2 g/dl (12.0-16.0); iSTAT Ionized Calcium 1.13 mmol/l (1.12-1.32); iSTAT Potassium 3.7 mEq/L (3.3-5.0)
[2019-05-29] MEDS: MAGNESIUM SULFATE / D5W 1 GM/100 ML BAG IV SCH ×2 (14:33→16:09)
[2019-05-29 14:43] LABS: Appearance Urine Clear (Clear); Bacteria Urine Automated Negative (Negative); Blood Urine Negative (Negative); Color Urine Dark Yellow; Glucose Urine UA 1+ (Negative); Ketones Urine Trace (Negative); Leukocyte Esterase Urine Trace (Negative); Nitrite Urine Positive (Negative); Protein Urine Negative (Negative); RBC Urine Automated 0-4 /hpf (0-4); Specific Gravity Urine 1.023 (1.000-1.030); Urobilinogen Urine Negative (Negative)
[2019-05-29 14:54] LABS: Bilirubin Urine Negative (Negative); Ictotest Urine Negative (Negative)
[2019-05-29 14:56] LABS: Cast Urine Automated >30 /lpf (0-5)
[2019-05-29 15:20] LABS: Influenza A virus by PCR Neg for Influ A (Neg); Influenza B virus by PCR Neg for Influ B (Neg)
[2019-05-29] MEDS ORDERED: VANCOMYCIN HCL 1,250 MG in SODIUM CHLORIDE 0.9% 500 ML IV ONE (15:21)
[2019-05-29] MEDS ORDERED: CEFEPIME 2,000 MG/20 ML VIAL IV STA (15:21)
[2019-05-29] MEDS ORDERED: VANCOMYCIN CONSULT ACTIVE PRN (15:21)
[2019-05-29] MEDS ORDERED: DOXYCYCLINE HYCLATE 100 MG in DEXTROSE 5% 100 ML IV STA (15:21)
--- NOTE | 2019-05-29 15:30 | Electrocardiogram Report ---
Test Reason : Blood Pressure : / mmHG Vent. Rate : 078 BPM Atrial Rate : 340 BPM P-R Int : 000 ms QRS Dur : 086 ms QT Int : 402 ms P-R-T Axes : 000 094 229 degrees QTc Int : 458 ms Poor data quality, interpretation may be adversely affected Atrial fibrillation with premature ventricular or aberrantly conducted complexes Rightward axis Abnormal ECG When compared with ECG of 25-MAY-2019 09:22, T wave inversion now evident in Anterolateral leads Confirmed by Bryce Reddy ([id number]) on 05/29/2019 3:30:41 PM Referred By: Nathan Mancini [place] Confirmed By:Bryce Reddy
--- NOTE | 2019-05-29 15:44 | CT Scan Report ---
CT head/brain wo con CT DOSE: HISTORY: Mental status change ams TECHNIQUE: Multiaxial CT images of the head were performed without the use of intravenous contrast. A dose lowering technique was utilized adhering to the principles of ALARA. Comparison: 07/24/2018 Findings: The paranasal sinuses and mastoid air cells are clear. The calvarium and skull base are int act. The ventricles and sulci are within normal limits. There is no mass, hematoma, midline shift, or acute infarct. Findings consistent with extensive age-related atrophy and chronic small vessel bradley e. Impression: No acute intracranial abnormality. Age-related atrophy and chronic small vessel change ACT 112: Negative or not required by law. The above report was generated using voice recognition software. It may contain grammatical, syntax or spelling errors. Electronically signed by: Boone Boss M.D. 05/29/2019 3:43 PM
--- NOTE | 2019-05-29 15:47 | CT Scan Report ---
CT cervical spine wo con CT DOSE: HISTORY: Pain. Neuropathy. ams, anemia TECHNIQUE: Multiaxial CT images of the cervical spine were performed and reformatted in the sagittal and coronal plane without the use of contrast. A dose lowering technique was utilized adhering to th e principles of ALARA. COMPARISON: None. FINDINGS: No fractures. No subluxation. Prevertebral soft tissues and the C1-C2 interval are intact. No pneumothorax. IMPRESSION: No fractures within the cervical spine. Stable degenerative change compared to the prior study. ACT 112: Negative or not required by law. The above report was generated using voice recognition software. It may contain grammatical, syntax or spelling errors. Electronically signed by: Boone Boss M.D. 05/29/2019 3:46 PM
--- NOTE | 2019-05-29 15:53 | CT Scan Report ---
CT OF THE CHEST WITHOUT IV CONTRAST CLINICAL HISTORY: Altered mental status. Anemia. COMPARISON STUDY: Chest radiograph May 25, 2019 and May 29, 2019. CT DOSE: 2240.41 mGy.cm TECHNIQUE: Axial images of the chest were obtained without IV contrast. Images were reviewed in the axial, sagittal, and coronal planes. IV contrast was not administered for this examination. Automat ed exposure control was utilized for the study. A dose lowering technique was utilized adhering to t he principles of ALARA. FINDINGS: The heart is moderately enlarged. There is no pericardial effusion. No enlarged axillary, mediastinal or hilar lymph nodes are present. This exam is compromised by motion artifact. There is e vidence for anasarca. The abdomen and pelvis will be reported separately. There is no pneumothorax. M oderate right and small left pleural effusions are noted with associated atelectasis. The lungs are s uboptimally assessed given respiratory motion. There is no consolidation to suggest pneumonia. Degene rative changes within the right shoulder are noted with subchondral lucency within the right humeral head with marked joint space narrowing. Note is made of a severe T12 compression fracture which is li marcelino old. There is 6 mm of retropulsion which results in mild to moderate central canal stenosis. IMPRESSION: 1. Moderate right and small left pleural effusions with associated atelectasis. 2. Exam compromised by motion artifact but no consolidation to suggest pneumonia. 3. Moderate cardiomegaly. 4. Anasarca. 5. Severe T12 compression fracture, likely old, with 6 mm of retropulsion which results in mild to mo derate central canal narrowing. ACT 112: Negative or not required by law. Electronically signed by: Raymond García M.D. 05/29/2019 3:52 PM
--- NOTE | 2019-05-29 16:01 | CT Scan Report ---
CT OF THE ABDOMEN AND PELVIS WITHOUT CONTRAST CLINICAL HISTORY: Altered mental status. Anemia. COMPARISON STUDY: No previous studies for comparison. TECHNIQUE: Axial images of the abdomen and pelvis were obtained without IV contrast. Images were revi ewed in the axial, sagittal, and coronal planes. Automated exposure control was utilized for the beth dy. A dose lowering technique was utilized adhering to the principles of ALARA. FINDINGS: Please note that the chest will be reported separately. Moderate right and small left pleur al effusions are noted. Evaluation of the abdomen and pelvis is suboptimal on this unenhanced examina tion. Anasarca is noted. There is motion artifact. Unenhanced images of the liver, spleen, adrenal gl ands and pancreas are unremarkable with exception of pancreatic glandular atrophy. There is no biliar y or pancreatic ductal dilatation. There may be a cyst within the midpole of the left kidney. There i s moderate to marked bilateral renal atrophy without hydronephrosis. No retroperitoneal hematoma is n oted. A Mora balloon within the bladder is noted. There is a rectal probe in place. Sigmoid divertic ulosis is noted without evidence for acute diverticulitis. The appendix is unremarkable. Severe T12 c ompression fracture is noted. There is a moderate L3 compression fracture. These are probably old. Th ere are no suspicious osseous lesions. There is no lymphadenopathy. The heart is moderately enlarged. IMPRESSION: 1. No acute process within the abdomen or pelvis although evaluation compromised given motion artifac t and lack of contrast. 2. Anasarca. No retroperitoneal hematoma. 3. No bowel obstruction. Colonic diverticulosis without evidence for acute diverticulitis. 4. Moderate right and small left pleural effusions. 5. Severe T12 compression fracture and moderate L3 compression fracture which are probably old. ACT 112: Negative or not required by law. Electronically signed by: Raymond García M.D. 05/29/2019 4:00 PM
--- NOTE | 2019-05-29 18:17 | History & Physical Report ---
Date of Service May 29, 2019 Assessment & Plan (1) Sepsis: Admit to [facility] on telemetry Vital signs every 4 hours Patient was started empirically vancomycin, cefepime and doxycycline in the ER for sepsis caused by possible pneumonia Urinary tract infection. Blood cultures pending Urine cultures pending In July 2018 patient grew Klebsiella oxytoca and Citrobacter freundii in her urine. Both organisms are sensitive to cefepime. Wound culture of the right middle toe pending Lactic acid 1.6, patient is hypothermic with temperature of 36.3 and needed a bear hugger. Since patient has anasarca IV fluids are not given once when patient arrives on the floor. Patient received 3 L of fluid in the ER and 1 g of magnesium in the ER. Will start Lasix 20 mg IV twice daily for anasarca. DVT prophylaxis: Patient is on apixaban 5 mg twice daily for A. fib's. Her APTT is 48.2. Will hold apixaban because patient developed bruising of her right lower extremities as well as left wrist. Patient is a full code per her son. Present on Admission?: Yes (2) Anemia: Patient H&H is 9 and 28.4. Her recent H&H was 13.6 and 43.9 on May 23, 2019. Most likely drop in H&H so sudden in the past 6 days is related to bruising that is extensive and involves her right lower extremity as well as the left wrist. No internal bleeding noted. We will check for fecal occult blood. Repeat CBC without differential every 12 hours. 2 units PRBCs on hold Patient son signed the consent for blood transfusion in case patient H&H drops below 8. Present on Admission?: Yes (3) Hypothermia: Most likely related to onging sepsis. Continue management as described above. Present on Admission?: Yes (4) Hypotension: Hypertension resolved after patient received 3 L of fluids in the ER. Continue monitoring every 4 hour blood pressure and vital signs. Present on Admission?: Yes (5) Pneumonia: Procalcitonin pending. Patient was started on vancomycin, cefepime and doxycycline in the ER which should cover for pneumonia. MRSA nasal swab pending. We continued with vancomycin and cefepime. Would consider to de-escalate the antibiotics once when blood cultures, wound cultures and urine cultures available. Continue duo nebs every 4 hours as needed and schedule as per RT. Continue albuterol sulfate 2 puffs every 4 hours. Present on Admission?: Yes (6) Mitral regurgitation: Chronic issue. Continue monitoring. TTE in a.m. Present on Admission?: Yes (7) Alcoholic encephalopathy: It is not clear when was the last time patient drank alcohol. To be placed on CIWA protocol and management for developing DT-s We will check for ammonia level. Continue thiamine and folic acid, biotin thousand MCG's p.o. every morning. Continue magnesium oxide 400mg p.o. twice daily Present on Admission?: Yes (8) Hypomagnesemia: Patient magnesium was 1.6 in the ER. Given 1 g of magnesium x1. We will recheck magnesium level and start magnesium oxide 400 mg p.o. twice daily. Present on Admission?: Yes (9) Dyigk-lw-aoxnmux kidney injury: On arrival to the emergency room patient was mildly dehydrated with a BUN of 24, creatinine was 1.65 and GFR of 30.9. Patient's baseline creatinine is 1.33 and GFR of 40.1, but also fluctuates because in her prior visits in April her creatinine was 1.73 and GFR of 29.2. Patient is in category of CKD stage III which fluctuates depending on her hydration level. Avoid nephrotoxic agents. Continue monitoring creatinine and GFR. Present on Admission?: Yes (10) Hematoma: Patient has extensive hematoma at the posterior aspect of right lower extremity. We will do x-rays of the right lower extremity and ultrasound to determine if there is any pocket that should be drained as well as Oracle rule out DVT. Possibly sudden drop in H&H within 6 days occurred because patient fell and injured her right lower extremity? Or the problem is GI bleed, needs to be determined. Present on Admission?: Yes (11) Atrial fibrillation: Continue diltiazem 180 mg p.o. every morning. Continue metoprolol succinate 100 mg p.o. twice daily. We will hold Eliquis because of critical APTT and bruising. Present on Admission?: Yes (12) Depression: Continue sertraline 75 mg p.o. every morning, Seroquel 100 mg p.o. nightly. Consider consulting psychiatry if patient continues with hallucinations. Consider sitter one-to-one if patient continues to be hallucinating and danger to herself or others. Present on Admission?: Yes History of Present Illness Chief Complaint: Worsening confusion Primary Care Provider: [facility] Nathan Patient is a 73 years old female with past medical history of hypertension, syncope, alcohol abuse, elevated troponin, depression, persistent atrial fibrillation's on Eliquis, alcoholic encephalopathy who was brought to the emergency room from [facility] where she resides for worsening confusion. Patient son is next at the bedside and he explains that patient is normally confused at baseline but her confusion is worsening for the past the day. He noted that patient lower extremities are swollen and that the swelling is worsening. They were also concerned of bruise at the back of the patient right calf and thigh which is apparently getting larger and it is painful for the patient and touch. Patient son said that patient was in and out emergency room [facility] on several occasion and last one being in May 25, 2019. Patient is poor historian and it is impossible to take ROS due to her confusion. EKG is reviewed and shows atrial fibrillation with premature ventricular complexes and T wave inversion evident in anterolateral leads. Labs are reviewed: WBC is 6.69, hemoglobin 9, hematocrit 28.4, platelets of 136, PT 16.2, INR 1.6, APTT 48.2, blood gas pH 7.48, PCO2 231, PO2 75, bicarb 22, saturating oxygen saturation 95.2, sodium 138, potassium 3.9, chloride 104, BUN 24, creatinine 1.65 which is off of patient baseline 1.33. GFR is 30.9 and baseline is usually 40.1. She was hypoglycemic on the entrance and her POC glucose was 45, 58, 36, which improved with 2 doses of D5. Troponin is also elevated chronically. Patient troponin on May was 0.101, today was 0.241-->0.609 even though patient is not reporting any chest pain. On exam patient has hallucinations and occasionally becomes combative. Urine is positive for nitrates and trace leukocyte esterase. Influenza A&B negative. CT of the head without contrast shows no acute intracranial abnormality. There is age-related atrophy and chronic small vessel changes. CT abdomen pelvis shows no acute process within the abdomen or pelvis. Anasarca, no retroperitoneal hematoma. No bowel obstruction. Chronic diverticulosis without evidence of acute diverticulitis. Moderate right and small left pleural effusions. Severe T12 compression fracture and moderate L3 compression fracture which are probably old. Cervical spine shows no fracture within the cervical spine. Stable degenerative changes compared to prior study. Chest x-ray significant for moderate right and small left pleural effusion with associated atelectasis. Exam compromised by motion artifact with no consolidation of suggested pneumonia. Moderate cardiomegaly. Anasarca. Severe T12 compression fracture likely old with 6 mm retropulsion which results in mild to moderate [place], no narrowing. Decision was made to admit patient to [facility] on telemetry for further evaluation and treatment of multiple comorbidities including but not limited to urinary tract infection, possible pneumonia, hematoma of the right leg. Allergies Allergy/AdvReac Type Severity Reaction Status Date / Time Penicillins Allergy Unknown CAN'T Verified 05/29/19 12:27 REMEMBER Macrolide Antibiotics Allergy Unknown Verified 05/29/19 12:27 [facility]GS Allergy Unknown CAN'T Uncoded 05/29/19 12:27 REMEMBER-SEE COMMENT Home Medications Home Medications Medication Instructions Recorded Confirmed Type Eliquis 5 mg PO BID #60 tab 05/07/19 05/29/19 Rx acetaminophen [Tylenol Extra 500 mg PO TID PRN #30 tab 05/07/19 05/29/19 Rx Strength] biotin 1,000 mcg PO QAM #30 tab 05/07/19 05/29/19 Rx folic acid 1 mg PO QAM #30 tab 05/07/19 05/29/19 Rx metoprolol succinate 100 mg PO BID #60 tab 05/07/19 05/29/19 Rx sertraline 25 mg PO QAM #30 tab 05/07/19 05/29/19 Rx sertraline 50 mg PO QAM #30 tab 05/07/19 05/29/19 Rx albuterol sulfate [Ventolin HFA] 2 puff INHALATION Q4 05/21/19 05/29/19 History levofloxacin 750 mg PO Q48H 7 Days #3 tab 05/25/19 05/29/19 Rx quetiapine [Seroquel] 100 mg PO HS 05/25/19 05/29/19 History sennosides-docusate sodium 1 tab PO DAILY PRN 05/25/19 05/29/19 History [Senna-S] diltiazem HCl 180 mg PO QAM 05/29/19 05/29/19 History docusate sodium 100 mg PO QAM 05/29/19 05/29/19 History magnesium oxide [MagOx] 400 mg PO QAM 05/29/19 05/29/19 History uomyqzwk-pvxhvsuyxAv-avfrgtkcG 1 applic TOPICAL DAILY@1300 05/29/19 05/29/19 History [Triple Antibiotic] thiamine HCl (vitamin B1) [Vitamin 100 mg PO QAM 05/29/19 05/29/19 History B-1] Past Med/Surg History Medical History Atrial fibrillation (Inactive) Chronic alcohol abuse Depression Hx of falling Hypertension (Chronic) Insomnia Pneumonia (Resolved) Tobacco abuse Surgical History H/O: hysterectomy H/O: hysterectomy Family History Mother , age 70 of uncertain causes No problems noted. Father , The mid-60s of a rare bone cancer No problems noted. 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 Feels Safe at Home: Yes Smoking Status: Former smoker Tobacco Type: cigarettes ; Cigarettes Per Day: Half a pack per day ; Second Hand Exposure: No ; Hx Alcohol Use: No Hx Substance Use: No Review of Systems Review of Systems: All systems reviewed & are unremarkable except as noted in HPI & below Physical Exam Constitutional: WD/WN, vitals as above well developed and + obese Eyes: PERRL, conjunctivae normal, anicteric sclerae ENMT: external ear and nose normal, oropharynx normal Neck: trachea midline, no thyromegaly Respiratory: normal respiratory effort and + respiratory distress Auscultation: + crackles and + wheezes Cardiovascular: Rate/Rhythm: + irregularly irregular Vessels: dorsalis pedis pulses present Extremities: + pedal edema and + edema Gastrointestinal (Abdomen): normal bowel sounds, soft, nontender, no hepatosplenomegaly Musculoskeletal: no cyanosis or clubbing, extremities motor strength 5/5 Skin: no rashes, warm and dry Neurologic: patellar DTR's 2+ bilat, sensation intact Psychiatric: Apperance: + disheveled Motor Behavior: + psychomotor agitation Insight: + limited insight Judgement: + impaired judgement Patient presented with hallucinations and alcoholic encephalopathy. She does not appear to be in DT. Lymphatic: no cervical or axillary lymphadenopathy Results & Data Vital Signs (Past 12 Hours) Vital Signs Temp Pulse Resp BP Pulse Ox 05/29/19 17:31 74 23 101/65 05/29/19 17:00 116 H 32 H 86/59 L 05/29/19 16:39 81 16 88/63 L 05/29/19 16:01 76 18 87/53 L 99 05/29/19 15:50 74 19 95/55 L 05/29/19 15:47 88 21 95/55 L 05/29/19 15:45 79 21 05/29/19 15:07 110 H 21 75/61 L 95 05/29/19 14:31 69 19 97/58 L 05/29/19 14:25 35.4 C L 05/29/19 14:07 78 23 96/60 L 05/29/19 13:50 72 22 117/73 05/29/19 13:28 90 22 70/55 L 05/29/19 13:13 77 19 79/50 L 05/29/19 12:31 82 23 72/65 L 05/29/19 12:19 79 23 104/57 L 05/29/19 11:52 36.4 C L 89 20 82/51 L Code Status & VTE Plan Code Status Full code VTE Prophylaxis Plan VTE Prophylaxis will be ordered: Yes PG Care Time/CCT Total # of Minutes Spent Total Time Spent with Patient: Total time spent is greater than 50% in coordination of care (as documented) at patient's floor/unit and/or counseling patient: (1) Sepsis Sepsis acute organ dysfunction status: unspecified Sepsis type: sepsis due to unspecified organism Qualified Code(s): A41.9 - Sepsis, unspecified organism (2) Anemia Anemia type: unspecified type Qualified Code(s): D64.9 - Anemia, unspecified (3) Hypothermia Encounter type: initial encounter Qualified Code(s): T68.XXXA - Hypothermia, initial encounter (4) Hypotension Hypotension type: unspecified hypotension type Qualified Code(s): I95.9 - Hypotension, unspecified (5) Pneumonia Laterality: right Lung location: lower lobe of lung Pneumonia type: due to unspecified organism Qualified Code(s): J18.9 - Pneumonia, unspecified organism
--- NOTE | 2019-05-29 18:35 | Emergency Department Note ---
Entered by Linda Presley acting as a scribe for Kalyan Cabral MD History of Present Illness General Chief complaint: Confusion Time Seen by Provider: 05/29/19 11:59 Source: other (Nurse) History of Present Illness Onset (ago): day(s) 1 Location: head (Confusion) Pain Consistency: + other (worsening) Quality: + other (confusion) Exacerbated By: + movement Associated symptoms: + confusion and + other (lower extremity edema, bruise on right calf ) The patient is a 73 year old female presenting to the Emergency Department complaining of worsening confusion starting 1 day ago. The patients nurse repo rts that the patient was sent to the [facility] Emergency Department from [facility] where she resides for worsening confusion. She explains that the patient is normally confused at baseline but that the patients confusion has worsened in the past day. She notes that the patients lower extremities are swollen and that this swelling has worsened as well. She adds that the patient has a bruise on her right calf that has recently gotten larger and that touching or moving the patients right leg worsens her pain from this bruise. The patients nurse reports that the patient was evaluated in the [facility] Emergency Department on 05/25/2019. The HPI and ROS are limited due to confusion. Home Medications Home Medications Medication Instructions Recorded Confirmed Type Eliquis 5 mg PO BID #60 tab 05/07/19 05/29/19 Rx acetaminophen [Tylenol Extra 500 mg PO TID PRN #30 tab 05/07/19 05/29/19 Rx Strength] biotin 1,000 mcg PO QAM #30 tab 05/07/19 05/29/19 Rx folic acid 1 mg PO QAM #30 tab 05/07/19 05/29/19 Rx metoprolol succinate 100 mg PO BID #60 tab 05/07/19 05/29/19 Rx sertraline 25 mg PO QAM #30 tab 05/07/19 05/29/19 Rx sertraline 50 mg PO QAM #30 tab 05/07/19 05/29/19 Rx albuterol sulfate [Ventolin HFA] 2 puff INHALATION Q4 05/21/19 05/29/19 History levofloxacin 750 mg PO Q48H 7 Days #3 tab 05/25/19 05/29/19 Rx quetiapine [Seroquel] 100 mg PO HS 05/25/19 05/29/19 History sennosides-docusate sodium 1 tab PO DAILY PRN 05/25/19 05/29/19 History [Senna-S] diltiazem HCl 180 mg PO QAM 05/29/19 05/29/19 History docusate sodium 100 mg PO QAM 05/29/19 05/29/19 History magnesium oxide [MagOx] 400 mg PO QAM 05/29/19 05/29/19 History fqbunzap-rrraomvjbQb-effqzsohB 1 applic TOPICAL DAILY@1300 05/29/19 05/29/19 History [Triple Antibiotic] thiamine HCl (vitamin B1) [Vitamin 100 mg PO QAM 05/29/19 05/29/19 History B-1] Allergies Allergy/AdvReac Type Severity Reaction Status Date / Time Penicillins Allergy Unknown CAN'T Verified 05/29/19 12:27 REMEMBER Macrolide Antibiotics Allergy Unknown Verified 05/29/19 12:27 MYCIN FAMILY DRUGS Allergy Unknown CAN'T Uncoded 05/29/19 12:27 REMEMBER-SEE COMMENT Past Med/Surg History Medical History Atrial fibrillation (Inactive) Chronic alcohol abuse Depression Hx of falling Hypertension (Chronic) Insomnia Pneumonia (Resolved) Tobacco abuse Surgical History H/O: hysterectomy H/O: hysterectomy Family History Mother , age 70 of uncertain causes No problems noted. Father , The mid-60s of a rare bone cancer No problems noted. 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 Feels Safe at Home: Yes Smoking Status: Former smoker Tobacco Type: cigarettes ; Cigarettes Per Day: Half a pack per day ; Second Hand Exposure: No ; Hx Alcohol Use: No Hx Substance Use: No Review of Systems The HPI and ROS are limited due to confusion. Physical Exam Vital Signs Vital Signs - 24 hr 05/29/19 11:52 05/29/19 12:19 05/29/19 12:31 Temperature 36.4 C L Temperature Source Oral Rectal Temperature - Source 1 Rectal Temperature - Source 2 Pulse Rate 89 79 82 Pulse Rate from SpO2 Sensor 68 Respiratory Rate 20 23 23 Respiratory Effort / Characteristics Non-Labored Respiratory Depth Normal Respiratory Pattern Regular Blood Pressure 82/51 L 104/57 L 72/65 L Blood Pressure Mean 61 76 67 Pulse Oximetry Oxygen Delivery Method Oxygen Flow Rate Sepsis Recent Fever Within 48 Hours No Sepsis New/Unexplained Change in Mental Status No Sepsis Action Taken by Nursing No Action Required 05/29/19 13:00 05/29/19 13:13 05/29/19 13:28 Temperature Temperature Source Rectal Temperature - Source 1 Rectal Temperature - Source 2 Pulse Rate 77 90 Pulse Rate from SpO2 Sensor 129 H Respiratory Rate 19 22 Respiratory Effort / Characteristics Respiratory Depth Respiratory Pattern Blood Pressure 79/50 L 70/55 L Blood Pressure Mean 62 67 Pulse Oximetry Oxygen Delivery Method Nasal Cannula Oxygen Flow Rate 2 Sepsis Recent Fever Within 48 Hours Sepsis New/Unexplained Change in Mental Status Sepsis Action Taken by Nursing 05/29/19 13:50 05/29/19 14:07 05/29/19 14:25 Temperature 35.4 C L Temperature Source Rectal Rectal Temperature - Source 1 Rectal Temperature - Source 2 Pulse Rate 72 78 Pulse Rate from SpO2 Sensor 121 H Respiratory Rate 22 23 Respiratory Effort / Characteristics Respiratory Depth Respiratory Pattern Blood Pressure 117/73 96/60 L Blood Pressure Mean 81 69 Pulse Oximetry Oxygen Delivery Method Oxygen Flow Rate Sepsis Recent Fever Within 48 Hours Sepsis New/Unexplained Change in Mental Status Sepsis Action Taken by Nursing 05/29/19 14:31 05/29/19 15:07 05/29/19 15:45 Temperature Temperature Source Rectal Temperature - Source 1 Rectal Temperature - Source 2 35.0 C L 35.0 C L Pulse Rate 69 110 H 79 Pulse Rate from SpO2 Sensor 77 Respiratory Rate 19 21 21 Respiratory Effort / Characteristics Respiratory Depth Respiratory Pattern Blood Pressure 97/58 L 75/61 L Blood Pressure Mean 65 67 Pulse Oximetry 95 Oxygen Delivery Method Nasal Cannula Oxygen Flow Rate 2 Sepsis Recent Fever Within 48 Hours Sepsis New/Unexplained Change in Mental Status Sepsis Action Taken by Nursing 05/29/19 15:47 05/29/19 15:50 05/29/19 16:01 Temperature Temperature Source Rectal Temperature - Source 1 36.3 C L Rectal Temperature - Source 2 Pulse Rate 88 74 76 Pulse Rate from SpO2 Sensor 76 Respiratory Rate 21 19 18 Respiratory Effort / Characteristics Respiratory Depth Respiratory Pattern Blood Pressure 95/55 L 95/55 L 87/53 L Blood Pressure Mean 68 67 61 Pulse Oximetry 99 Oxygen Delivery Method Oxygen Flow Rate Sepsis Recent Fever Within 48 Hours Sepsis New/Unexplained Change in Mental Status Sepsis Action Taken by Nursing 05/29/19 16:39 05/29/19 17:00 05/29/19 17:31 Temperature Temperature Source Rectal Temperature - Source 1 Rectal Temperature - Source 2 Pulse Rate 81 116 H 74 Pulse Rate from SpO2 Sensor Respiratory Rate 16 32 H 23 Respiratory Effort / Characteristics Respiratory Depth Respiratory Pattern Blood Pressure 88/63 L 86/59 L 101/65 Blood Pressure Mean 67 69 81 Pulse Oximetry Oxygen Delivery Method Oxygen Flow Rate Sepsis Recent Fever Within 48 Hours Sepsis New/Unexplained Change in Mental Status Sepsis Action Taken by Nursing 05/29/19 18:00 Temperature Temperature Source Rectal Temperature - Source 1 Rectal Temperature - Source 2 Pulse Rate Pulse Rate from SpO2 Sensor Respiratory Rate 17 Respiratory Effort / Characteristics Respiratory Depth Respiratory Pattern Blood Pressure 93/59 L Blood Pressure Mean 62 Pulse Oximetry Oxygen Delivery Method Oxygen Flow Rate Sepsis Recent Fever Within 48 Hours Sepsis New/Unexplained Change in Mental Status Sepsis Action Taken by Nursing GENERAL: Patient is ill appearing. Pleasantly confused. Awake, alert, in no distress HENT: Normocephalic, atraumatic. Oropharynx with dry mucous membranes and otherwise unremarkable. EYES: Normal conjunctiva. Sclera non-icteric. EOMI. No nystamgus. PEARRL. NECK: Supple. No nuchal rigidity. FROM. No JVD. RESPIRATORY: CTAB. CARDIAC: Regular rate, irregular rhythm. Extremities warm and well perfused. Pulses equal. ABDOMEN: Soft, non-distended. No tenderness to palpation. No rebound or guarding. No masses. RECTAL: Deferred. MUSCULOSKELETAL: Chest examination reveals no tenderness. The back is symmetrical on inspection without obvious abnormality. There is no CVA tenderne ss to palpation. No joint edema. LOWER EXTREMITIES: 1+ bilaterally lower extremity edema. Calves are equal size bilaterally and non-tender. No discoloration. NEURO: Normal sensorium. No sensory or motor deficits noted. Moving all extremities equally. SKIN: No rash or jaundice noted. Course Course 1220: The patient was evaluated in room A12B, and a complete history and physical examination were performed. 1236: EMR reviewed. The patient was seen in the hospital on 05/25/2019 for a questionable facial droop. She was diagnosed with pneumonia. 1342: I reevaluated the patient at this time. I spoke to the patients son on the phone who approved performing transfusions. 1611: I discussed the patient's case with Dr. Ofelia Santillan [facility] hospitalist. She will evaluate the patient for further management. Administered Medications Albuterol (Ventolin Hfa) 2 puffs INH 0800,1200,1600,1999 MAURISIO Stop: 06/28/19 19:59 Last Admin: 05/29/19 20:52 Dose: 2 puffs Documented by: [id number] Apixaban (Eliquis) 5 mg PO BID MAURISIO Stop: 06/28/19 20:59 Last Admin: 05/29/19 20:51 Dose: 5 mg Documented by: [id number] Folic Acid (Folvite) 1 mg PO DAILY MAURISIO Stop: 06/28/19 19:45 Last Admin: 05/29/19 20:51 Dose: 1 mg Documented by: [id number] Lorazepam (Ativan) 1 mg in 2 mls @ 2 mls/min IV ONE PRN; Protocol PRN Reason: EtoH Withdrawal AWSS 6-10 Stop: 06/28/19 19:45 Last Admin: 05/29/19 22:10 Dose: 2 mls/min Documented by: [id number] Metoprolol Succinate (Toprol Xl) 100 mg PO BID@0800,1999 MAURISIO Stop: 06/28/19 20:59 Last Admin: 05/29/19 20:51 Dose: Not Given Documented by: [id number] Quetiapine Fumarate (Seroquel) 100 mg PO HS MAURISIO Stop: 06/28/19 20:59 Last Admin: 05/29/19 20:51 Dose: 100 mg Documented by: [id number] Discontinued Medications Dextrose (Dextrose 50%) Confirm Administered Dose 50 ml IV .STK-MED ONE Stop: 05/29/19 12:14 Last Admin: 05/29/19 12:22 Dose: 50 ml Documented by: [id number] Dextrose (Dextrose 50%) 50 ml IV NOW ONE Stop: 05/29/19 12:27 Last Admin: 05/29/19 12:51 Dose: 50 ml Documented by: [id number] Dextrose (Dextrose 50%) 50 ml IV NOW ONE Stop: 05/29/19 12:59 Last Admin: 05/29/19 14:34 Dose: Not Given Documented by: [id number] Sodium Chloride (Nss) 500 mls @ 999 mls/hr IV .Q31M ONE Stop: 05/29/19 12:56 Last Infusion: 05/29/19 15:08 Dose: 0 mls/hr Documented by: [id number] Admin: 05/29/19 14:34 Dose: 999 mls/hr Documented by: [id number] Dextrose/Sodium Chloride (D5w And Nss) 1,000 mls @ 999 mls/hr IV .Q1H1M STA Stop: 05/29/19 14:00 Last Infusion: 05/29/19 14:34 Dose: 0 mls/hr Documented by: [id number] Admin: 05/29/19 13:24 Dose: 999 mls/hr Documented by: [id number] Magnesium Sulfate/Dextrose (Magnesium Sulfate / D5w) 1 gm in 100 mls @ 100 mls/hr IV Q1H AMURISIO Stop: 05/29/19 15:29 Last Infusion: 05/29/19 17:22 Dose: 0 mls/hr Documented by: [id number] Admin: 05/29/19 16:09 Dose: 100 mls/hr Documented by: [id number] Infusion: 05/29/19 15:54 Dose: 0 mls/hr Documented by: [id number] Admin: 05/29/19 14:33 Dose: 100 mls/hr Documented by: [id number] Thiamine HCl 100 mg/ Syringe 10 mls @ 2 mls/min IV NOW STA Stop: 05/29/19 13:49 Last Admin: 05/29/19 14:33 Dose: 2 mls/min Documented by: [id number] Sodium Chloride (Nss) 500 mls @ 999 mls/hr IV .Q31M ONE Stop: 05/29/19 14:28 Last Infusion: 05/29/19 15:08 Dose: 0 mls/hr Documented by: [id number] Admin: 05/29/19 14:34 Dose: 999 mls/hr Documented by: [id number] Cefepime HCl (Maxipime) 2,000 mg in 20 mls @ 5 mls/min IV NOW STA; Protocol Stop: 05/29/19 15:24 Last Admin: 05/29/19 15:59 Dose: 5 mls/min Documented by: [id number] Doxycycline Hyclate 100 mg/ (Dextrose) 110 mls @ 50 mls/hr IV NOW STA Stop: 05/29/19 17:32 Last Infusion: 05/29/19 20:45 Dose: 0 mls/hr Documented by: [id number] Admin: 05/29/19 17:28 Dose: 50 mls/hr Documented by: [id number] Vancomycin HCl 1,250 mg/ (Sodium Chloride) 525 mls @ 200 mls/hr IV NOW ONE Stop: 05/29/19 17:58 Last Infusion: 05/29/19 18:32 Dose: 0 mls/hr Documented by: [id number] Admin: 05/29/19 15:52 Dose: 200 mls/hr Documented by: [id number] Potassium Chloride/Sodium Chloride (Normal Saline W/20 Meq Kcl) 20 meq in 1,000 mls @ 80 mls/hr IV .[id number] MAURISIO Stop: 06/28/19 19:45 Last Admin: 05/29/19 20:50 Dose: 80 mls/hr Documented by: [id number] Critical Care Time Critical Care Time: Yes Total Critical Care Time: 105 I have personally spent greater than 105 minutes of critical care time in the direct management of this patient. This includes bedside care, interpretation of diagnostic studies, and testing, discussion with consultants, patient, and family members, and other required patient management activities. This 105 minutes is in excess of all separately billable procedures. Medical Decision Making Differential Diagnosis Differential Diagnosis includes but is not limited to dehydration, stroke, anemia, hypoglycemia, hyponatremia, hypernatremia, urinary tract infection, pneumonia, bronchitis, sepsis, gastroenteritis, additional abdominal pathology, metabolic abnormalities and infections. Medical Records Attestation: I reviewed the patient's medical records. Home Medications Current Medication List: was personally reviewed by me Laboratory Data Attestation: I reviewed the patient's lab results. Result diagrams: 05/29/19 23:34 05/29/19 12:39 Lab Results 05/29/19 05/29/19 05/29/19 Range/Units 12:04 12:39 12:39 WBC 6.69 (4.8-10.8) K/uL RBC 3.14 L (4.2-5.4) M/uL Hgb 9.0 L (12.0-16.0) g/dL POC Hgb (12.0-16.0) g/dl Hct 28.4 L (37-47) % POC Hct (37-47) % MCV 90.4 (80-100) fL MCH 28.7 (25-34) pg MCHC 31.7 L (32-36) g/dL RDW Std Deviation 69.5 H (36.4-46.3) fL RDW Coeff of Mario 21.2 H (11.5-14.5) % Plt Count 136 (130-400) K/uL MPV 10.2 (7.4-10.4) fL Immature Gran % (Auto) 0.1 % Neut % (Auto) 77.7 % Lymph % (Auto) 12.4 % [place] % (Auto) 7.9 % Eos % (Auto) 1.8 % Baso % (Auto) 0.1 % Immature Gran # (Auto) 0.01 (0.00-0.02) K/uL Neut # (Auto) 5.19 (1.4-6.5) K/uL Lymph # (Auto) 0.83 L (1.2-3.4) K/uL [place] # (Auto) 0.53 (0.11-0.59) K/uL Eos # (Auto) 0.12 (0-0.5) K/uL Baso # (Auto) 0.01 (0-0.2) K/uL Anisocytosis Present PT 18.2 H (9.0-12.0) Seconds INR 1.9 H (0.9-1.1) APTT 50.0 H* (21.0-31.0) Seconds PTT Ratio 1.8 ABG pH (7.35-7.45) ABG pCO2 (35-46) mmHg ABG pO2 (80-95) mm/Hg ABG HCO3 (19-24) mmol/L ABG O2 Saturation (90-95) % ABG Base Excess (-9-1.8) mEq/L Alexi Test (Pos) Barometric Pressure mm/Hg Oxygen Given POC Sodium (135-144) mEq/L Sodium (136-145) mmol/L POC Potassium (3.3-5.0) mEq/L Potassium (3.5-5.1) mmol/L POC Chloride (101-112) mEq/L Chloride (98-107) mmol/L Carbon Dioxide (21-32) mmol/L POC Total CO2 (24-31) mEq/l Anion Gap (3-11) POC Anion Gap (16-25) mmol/L POC BUN (7-18) mg/dl BUN (7-18) mg/dl Creatinine (0.6-1.2) mg/dl POC Creatinine (0.6-1.3) mg/dl Est Cr Clr Drug Dosing ml/min Est GFR ( Amer) Est GFR (Non-Af Amer) BUN/Creatinine Ratio (10-20) Glucose (70-99) mg/dl POC Glucose 45 L* (70-99) POC Glucose (other) (70-99) mg/dl Lactate (0.4-2.0) mmol/L Calcium (8.5-10.1) mg/dl POC Ioniz Calcium Raf (1.12-1.32) mmol/l Phosphorus (2.5-4.9) mg/dl Magnesium (1.8-2.4) mg/dl Total Bilirubin (0.2-1) mg/dl AST (15-37) U/L ALT (12-78) U/L Alkaline Phosphatase (45-117) U/L Troponin I (0-0.045) ng/ml Total Protein (6.4-8.2) gm/dl Albumin (3.4-5.0) gm/dl Globulin (2.5-4.0) gm/dl Albumin/Globulin Ratio (0.9-2) Urine Color Urine Appearance (Clear) Urine pH (4.5-7.5) Ur Specific [place] (1.000-1.030) Urine Protein (Negative) Urine Glucose (UA) (Negative) Urine Ketones (Negative) Urine Blood (Negative) Urine Nitrite (Negative) Urine Bilirubin (Negative) Urine Urobilinogen (Negative) Ur Leukocyte Esterase (Negative) Urine WBC (Auto) (0-5) /hpf Urine RBC (Auto) (0-4) /hpf U Hyaline Cast (Auto) (0-5) /lpf U Epithel Cells (Auto) (0-5) /lpf Urine Bacteria (Auto) (Negative) Influenza Type A (PCR) (Neg) Influenza Type B (PCR) (Neg) Blood Type Antibody Screen Crossmatch 05/29/19 05/29/19 05/29/19 Range/Units 12:39 12:39 12:50 WBC (4.8-10.8) K/uL RBC (4.2-5.4) M/uL Hgb (12.0-16.0) g/dL POC Hgb (12.0-16.0) g/dl Hct (37-47) % POC Hct (37-47) % MCV (80-100) fL MCH (25-34) pg MCHC (32-36) g/dL RDW Std Deviation (36.4-46.3) fL RDW Coeff of Mario (11.5-14.5) % Plt Count (130-400) K/uL MPV (7.4-10.4) fL Immature Gran % (Auto) % Neut % (Auto) % Lymph % (Auto) % [place] % (Auto) % Eos % (Auto) % Baso % (Auto) % Immature Gran # (Auto) (0.00-0.02) K/uL Neut # (Auto) (1.4-6.5) K/uL Lymph # (Auto) (1.2-3.4) K/uL [place] # (Auto) (0.11-0.59) K/uL Eos # (Auto) (0-0.5) K/uL Baso # (Auto) (0-0.2) K/uL Anisocytosis PT (9.0-12.0) Seconds INR (0.9-1.1) APTT (21.0-31.0) Seconds PTT Ratio ABG pH (7.35-7.45) ABG pCO2 (35-46) mmHg ABG pO2 (80-95) mm/Hg ABG HCO3 (19-24) mmol/L ABG O2 Saturation (90-95) % ABG Base Excess (-9-1.8) mEq/L Alexi Test (Pos) Barometric Pressure mm/Hg Oxygen Given POC Sodium (135-144) mEq/L Sodium 138 (136-145) mmol/L POC Potassium (3.3-5.0) mEq/L Potassium 3.9 (3.5-5.1) mmol/L POC Chloride (101-112) mEq/L Chloride 104 (98-107) mmol/L Carbon Dioxide 22 (21-32) mmol/L POC Total CO2 (24-31) mEq/l Anion Gap 12.0 H (3-11) POC Anion Gap (16-25) mmol/L POC BUN (7-18) mg/dl BUN 24 H (7-18) mg/dl Creatinine 1.65 H (0.6-1.2) mg/dl POC Creatinine (0.6-1.3) mg/dl Est Cr Clr Drug Dosing 28.2 ml/min Est GFR ( Amer) 35.8 Est GFR (Non-Af Amer) 30.9 BUN/Creatinine Ratio 14.7 (10-20) Glucose 227 H (70-99) mg/dl POC Glucose 58 L* (70-99) POC Glucose (other) (70-99) mg/dl Lactate 1.6 (0.4-2.0) mmol/L Calcium 7.9 L (8.5-10.1) mg/dl POC Ioniz Calcium Raf (1.12-1.32) mmol/l Phosphorus 3.7 (2.5-4.9) mg/dl Magnesium 1.5 L (1.8-2.4) mg/dl Total Bilirubin 1.0 (0.2-1) mg/dl AST 20 (15-37) U/L ALT 13 (12-78) U/L Alkaline Phosphatase 46 (45-117) U/L Troponin I 0.241 H* (0-0.045) ng/ml Total Protein 4.5 L (6.4-8.2) gm/dl Albumin 2.3 L (3.4-5.0) gm/dl Globulin 2.2 L (2.5-4.0) gm/dl Albumin/Globulin Ratio 1.1 (0.9-2) Urine Color Urine Appearance (Clear) Urine pH (4.5-7.5) Ur Specific [place] (1.000-1.030) Urine Protein (Negative) Urine Glucose (UA) (Negative) Urine Ketones (Negative) Urine Blood (Negative) Urine Nitrite (Negative) Urine Bilirubin (Negative) Urine Urobilinogen (Negative) Ur Leukocyte Esterase (Negative) Urine WBC (Auto) (0-5) /hpf Urine RBC (Auto) (0-4) /hpf U Hyaline Cast (Auto) (0-5) /lpf U Epithel Cells (Auto) (0-5) /lpf Urine Bacteria (Auto) (Negative) Influenza Type A (PCR) (Neg) Influenza Type B (PCR) (Neg) Blood Type Antibody Screen Crossmatch 05/29/19 05/29/19 05/29/19 Range/Units 12:52 12:56 13:09 WBC (4.8-10.8) K/uL RBC (4.2-5.4) M/uL Hgb (12.0-16.0) g/dL POC Hgb (12.0-16.0) g/dl Hct (37-47) % POC Hct (37-47) % MCV (80-100) fL MCH (25-34) pg MCHC (32-36) g/dL RDW Std Deviation (36.4-46.3) fL RDW Coeff of Mario (11.5-14.5) % Plt Count (130-400) K/uL MPV (7.4-10.4) fL Immature Gran % (Auto) % Neut % (Auto) % Lymph % (Auto) % [place] % (Auto) % Eos % (Auto) % Baso % (Auto) % Immature Gran # (Auto) (0.00-0.02) K/uL Neut # (Auto) (1.4-6.5) K/uL Lymph # (Auto) (1.2-3.4) K/uL [place] # (Auto) (0.11-0.59) K/uL Eos # (Auto) (0-0.5) K/uL Baso # (Auto) (0-0.2) K/uL Anisocytosis PT (9.0-12.0) Seconds INR (0.9-1.1) APTT (21.0-31.0) Seconds PTT Ratio ABG pH 7.48 H (7.35-7.45) ABG pCO2 31 L (35-46) mmHg ABG pO2 75 L (80-95) mm/Hg ABG HCO3 22 (19-24) mmol/L ABG O2 Saturation 95.2 H (90-95) % ABG Base Excess -1.0 (-9-1.8) mEq/L Alexi Test Pos (Pos) Barometric Pressure 733.3 mm/Hg Oxygen Given ROOM AIR POC Sodium (135-144) mEq/L Sodium (136-145) mmol/L POC Potassium (3.3-5.0) mEq/L Potassium (3.5-5.1) mmol/L POC Chloride (101-112) mEq/L Chloride (98-107) mmol/L Carbon Dioxide (21-32) mmol/L POC Total CO2 (24-31) mEq/l Anion Gap (3-11) POC Anion Gap (16-25) mmol/L POC BUN (7-18) mg/dl BUN (7-18) mg/dl Creatinine (0.6-1.2) mg/dl POC Creatinine (0.6-1.3) mg/dl Est Cr Clr Drug Dosing ml/min Est GFR ( Amer) Est GFR (Non-Af Amer) BUN/Creatinine Ratio (10-20) Glucose (70-99) mg/dl POC Glucose 36 L* (70-99) POC Glucose (other) (70-99) mg/dl Lactate (0.4-2.0) mmol/L Calcium (8.5-10.1) mg/dl POC Ioniz Calcium Raf (1.12-1.32) mmol/l Phosphorus (2.5-4.9) mg/dl Magnesium (1.8-2.4) mg/dl Total Bilirubin (0.2-1) mg/dl AST (15-37) U/L ALT (12-78) U/L Alkaline Phosphatase (45-117) U/L Troponin I (0-0.045) ng/ml Total Protein (6.4-8.2) gm/dl Albumin (3.4-5.0) gm/dl Globulin (2.5-4.0) gm/dl Albumin/Globulin Ratio (0.9-2) Urine Color Urine Appearance (Clear) Urine pH (4.5-7.5) Ur Specific [place] (1.000-1.030) Urine Protein (Negative) Urine Glucose (UA) (Negative) Urine Ketones (Negative) Urine Blood (Negative) Urine Nitrite (Negative) Urine Bilirubin (Negative) Urine Urobilinogen (Negative) Ur Leukocyte Esterase (Negative) Urine WBC (Auto) (0-5) /hpf Urine RBC (Auto) (0-4) /hpf U Hyaline Cast (Auto) (0-5) /lpf U Epithel Cells (Auto) (0-5) /lpf Urine Bacteria (Auto) (Negative) Influenza Type A (PCR) (Neg) Influenza Type B (PCR) (Neg) Blood Type A Positive Antibody Screen NEGATIVE Crossmatch See Detail 05/29/19 05/29/19 05/29/19 Range/Units 13:11 13:36 13:55 WBC (4.8-10.8) K/uL RBC (4.2-5.4) M/uL Hgb (12.0-16.0) g/dL POC Hgb 9.2 L (12.0-16.0) g/dl Hct (37-47) % POC Hct 27 L (37-47) % MCV (80-100) fL MCH (25-34) pg MCHC (32-36) g/dL RDW Std Deviation (36.4-46.3) fL RDW Coeff of Mario (11.5-14.5) % Plt Count (130-400) K/uL MPV (7.4-10.4) fL Immature Gran % (Auto) % Neut % (Auto) % Lymph % (Auto) % [place] % (Auto) % Eos % (Auto) % Baso % (Auto) % Immature Gran # (Auto) (0.00-0.02) K/uL Neut # (Auto) (1.4-6.5) K/uL Lymph # (Auto) (1.2-3.4) K/uL [place] # (Auto) (0.11-0.59) K/uL Eos # (Auto) (0-0.5) K/uL Baso # (Auto) (0-0.2) K/uL Anisocytosis PT (9.0-12.0) Seconds INR (0.9-1.1) APTT (21.0-31.0) Seconds PTT Ratio ABG pH (7.35-7.45) ABG pCO2 (35-46) mmHg ABG pO2 (80-95) mm/Hg ABG HCO3 (19-24) mmol/L ABG O2 Saturation (90-95) % ABG Base Excess (-9-1.8) mEq/L Alexi Test (Pos) Barometric Pressure mm/Hg Oxygen Given POC Sodium 137 (135-144) mEq/L Sodium (136-145) mmol/L POC Potassium 3.7 (3.3-5.0) mEq/L Potassium (3.5-5.1) mmol/L POC Chloride 97 L (101-112) mEq/L Chloride (98-107) mmol/L Carbon Dioxide (21-32) mmol/L POC Total CO2 27 (24-31) mEq/l Anion Gap (3-11) POC Anion Gap 18.0 (16-25) mmol/L POC BUN 27 H (7-18) mg/dl BUN (7-18) mg/dl Creatinine (0.6-1.2) mg/dl POC Creatinine 1.6 H (0.6-1.3) mg/dl Est Cr Clr Drug Dosing ml/min Est GFR ( Amer) Est GFR (Non-Af Amer) BUN/Creatinine Ratio (10-20) Glucose (70-99) mg/dl POC Glucose 70 (70-99) POC Glucose (other) 296 H (70-99) mg/dl Lactate (0.4-2.0) mmol/L Calcium (8.5-10.1) mg/dl POC Ioniz Calcium Raf 1.13 (1.12-1.32) mmol/l Phosphorus (2.5-4.9) mg/dl Magnesium (1.8-2.4) mg/dl Total Bilirubin (0.2-1) mg/dl AST (15-37) U/L ALT (12-78) U/L Alkaline Phosphatase (45-117) U/L Troponin I (0-0.045) ng/ml Total Protein (6.4-8.2) gm/dl Albumin (3.4-5.0) gm/dl Globulin (2.5-4.0) gm/dl Albumin/Globulin Ratio (0.9-2) Urine Color Urine Appearance (Clear) Urine pH (4.5-7.5) Ur Specific [place] (1.000-1.030) Urine Protein (Negative) Urine Glucose (UA) (Negative) Urine Ketones (Negative) Urine Blood (Negative) Urine Nitrite (Negative) Urine Bilirubin (Negative) Urine Urobilinogen (Negative) Ur Leukocyte Esterase (Negative) Urine WBC (Auto) (0-5) /hpf Urine RBC (Auto) (0-4) /hpf U Hyaline Cast (Auto) (0-5) /lpf U Epithel Cells (Auto) (0-5) /lpf Urine Bacteria (Auto) (Negative) Influenza Type A (PCR) Neg for Influ A (Neg) Influenza Type B (PCR) Neg for Influ B (Neg) Blood Type Antibody Screen Crossmatch 05/29/19 05/29/19 Range/Units 14:29 14:31 WBC (4.8-10.8) K/uL RBC (4.2-5.4) M/uL Hgb (12.0-16.0) g/dL POC Hgb (12.0-16.0) g/dl Hct (37-47) % POC Hct (37-47) % MCV (80-100) fL MCH (25-34) pg MCHC (32-36) g/dL RDW Std Deviation (36.4-46.3) fL RDW Coeff of Mario (11.5-14.5) % Plt Count (130-400) K/uL MPV (7.4-10.4) fL Immature Gran % (Auto) % Neut % (Auto) % Lymph % (Auto) % [place] % (Auto) % Eos % (Auto) % Baso % (Auto) % Immature Gran # (Auto) (0.00-0.02) K/uL Neut # (Auto) (1.4-6.5) K/uL Lymph # (Auto) (1.2-3.4) K/uL [place] # (Auto) (0.11-0.59) K/uL Eos # (Auto) (0-0.5) K/uL Baso # (Auto) (0-0.2) K/uL Anisocytosis PT (9.0-12.0) Seconds INR (0.9-1.1) APTT (21.0-31.0) Seconds PTT Ratio ABG pH (7.35-7.45) ABG pCO2 (35-46) mmHg ABG pO2 (80-95) mm/Hg ABG HCO3 (19-24) mmol/L ABG O2 Saturation (90-95) % ABG Base Excess (-9-1.8) mEq/L Alexi Test (Pos) Barometric Pressure mm/Hg Oxygen Given POC Sodium (135-144) mEq/L Sodium (136-145) mmol/L POC Potassium (3.3-5.0) mEq/L Potassium (3.5-5.1) mmol/L POC Chloride (101-112) mEq/L Chloride (98-107) mmol/L Carbon Dioxide (21-32) mmol/L POC Total CO2 (24-31) mEq/l Anion Gap (3-11) POC Anion Gap (16-25) mmol/L POC BUN (7-18) mg/dl BUN (7-18) mg/dl Creatinine (0.6-1.2) mg/dl POC Creatinine (0.6-1.3) mg/dl Est Cr Clr Drug Dosing ml/min Est GFR ( Amer) Est GFR (Non-Af Amer) BUN/Creatinine Ratio (10-20) Glucose (70-99) mg/dl POC Glucose 185 H (70-99) POC Glucose (other) (70-99) mg/dl Lactate (0.4-2.0) mmol/L Calcium (8.5-10.1) mg/dl POC Ioniz Calcium Raf (1.12-1.32) mmol/l Phosphorus (2.5-4.9) mg/dl Magnesium (1.8-2.4) mg/dl Total Bilirubin (0.2-1) mg/dl AST (15-37) U/L ALT (12-78) U/L Alkaline Phosphatase (45-117) U/L Troponin I (0-0.045) ng/ml Total Protein (6.4-8.2) gm/dl Albumin (3.4-5.0) gm/dl Globulin (2.5-4.0) gm/dl Albumin/Globulin Ratio (0.9-2) Urine Color Dark Yellow Urine Appearance Clear (Clear) Urine pH 5.0 (4.5-7.5) Ur Specific [place] 1.023 (1.000-1.030) Urine Protein Negative (Negative) Urine Glucose (UA) 1+ H (Negative) Urine Ketones Trace H (Negative) Urine Blood Negative (Negative) Urine Nitrite Positive A (Negative) Urine Bilirubin Negative (Negative) Urine Urobilinogen Negative (Negative) Ur Leukocyte Esterase Trace H (Negative) Urine WBC (Auto) 1-5 (0-5) /hpf Urine RBC (Auto) 0-4 (0-4) /hpf U Hyaline Cast (Auto) >30 H (0-5) /lpf U Epithel Cells (Auto) 5-10 H (0-5) /lpf Urine Bacteria (Auto) Negative (Negative) Influenza Type A (PCR) (Neg) Influenza Type B (PCR) (Neg) Blood Type Antibody Screen Crossmatch Imaging Data Radiologist's Impression: Radiology results as stated below per my review and the radiologist's interpretation: CT head/brain wo con CT DOSE: HISTORY: Mental status change ams TECHNIQUE: Multiaxial CT images of the head were performed without the use of intravenous contrast. A dose lowering technique was utilized adhering to the principles of ALARA. Comparison: 07/24/2018 Findings: The paranasal sinuses and mastoid air cells are clear. The calvarium and skull base are intact. The ventricles and sulci are within normal limits. There is no mass, hematoma, midline shift, or acute infarct. Findings consistent with extensive age-related atrophy and chronic small vessel change. Impression: No acute intracranial abnormality. Age-related atrophy and chronic small vessel change ACT 112: Negative or not required by law. The above report was generated using voice recognition software. It may contain grammatical, syntax or spelling errors. Electronically signed by: Boone Boss M.D. 05/29/2019 3:[address] cervical spine wo con CT DOSE: HISTORY: Pain. Neuropathy. ams, anemia TECHNIQUE: Multiaxial CT images of the cervical spine were performed and reformatted in the sagittal and coronal plane without the use of contrast. A dose lowering technique was utilized adhering to the principles of ALARA. COMPARISON: None. FINDINGS: No fractures. No subluxation. Prevertebral soft tissues and the C1-C2 interval are intact. No pneumothorax. IMPRESSION: No fractures within the cervical spine. Stable degenerative change compared to the prior study. ACT 112: Negative or not required by law. The above report was generated using voice recognition software. It may contain grammatical, syntax or spelling errors. Electronically signed by: Boone Boss M.D. 05/29/2019 3:[address] OF THE CHEST WITHOUT IV CONTRAST CLINICAL HISTORY: Altered mental status. Anemia. COMPARISON STUDY: Chest radiograph May 25, 2019 and May 29, 2019. CT DOSE: 2240.41 mGy.cm TECHNIQUE: Axial images of the chest were obtained without IV contrast. Images were reviewed in the axial, sagittal, and coronal planes. IV contrast was not administered for this examination. Automated exposure control was utilized for the study. A dose lowering technique was utilized adhering to the principles of ALARA. FINDINGS: The heart is moderately enlarged. There is no pericardial effusion. No enlarged axillary, mediastinal or hilar lymph nodes are present. This exam is compromised by motion artifact. There is evidence for anasarca. The abdomen and pelvis will be reported separately. There is no pneumothorax. Moderate right and small left pleural effusions are noted with associated atelectasis. The lungs are suboptimally assessed given respiratory motion. There is no consolidation to suggest pneumonia. Degenerative changes within the right shoulder are noted with subchondral lucency within the right humeral head with marked joint space narrowing. Note is made of a severe T12 compression fracture which is likely old. There is 6 mm of retropulsion which results in mild to moderate central canal stenosis. IMPRESSION: 1. Moderate right and small left pleural effusions with associated atelectasis. 2. Exam compromised by motion artifact but no consolidation to suggest p neumonia. 3. Moderate cardiomegaly. 4. Anasarca. 5. Severe T12 compression fracture, likely old, with 6 mm of retropulsion which results in mild to moderate central canal narrowing. ACT 112: Negative or not required by law. Electronically signed by: Raymond García M.D. 05/29/2019 3:[address] OF THE ABDOMEN AND PELVIS WITHOUT CONTRAST CLINICAL HISTORY: Altered mental status. Anemia. COMPARISON STUDY: No previous studies for comparison. TECHNIQUE: Axial images of the abdomen and pelvis were obtained without IV contrast. Images were reviewed in the axial, sagittal, and coronal planes. Automated exposure control was utilized for the study. A dose lowering technique was utilized adhering to the principles of ALARA. FINDINGS: Please note that the chest will be reported separately. Moderate right and small left pleural effusions are noted. Evaluation of the abdomen and pelvis is suboptimal on this unenhanced examination. Anasarca is noted. There is motion artifact. Unenhanced images of the liver, spleen, adrenal glands and pancreas are unremarkable with exception of pancreatic glandular atrophy. There is no biliary or pancreatic ductal dilatation. There may be a cyst within the midpole of the left kidney. There is moderate to marked bilateral renal atrophy without hydronephrosis. No retroperitoneal hematoma is noted. A Mora balloon within the bladder is noted. There is a rectal probe in place. Sigmoid diverticulosis is no miranda without evidence for acute diverticulitis. The appendix is unremarkable. Severe T12 compression fracture is noted. There is a moderate L3 compression fracture. These are probably old. There are no suspicious osseous lesions. There is no lymphadenopathy. The heart is moderately enlarged. IMPRESSION: 1. No acute process within the abdomen or pelvis although evaluation compromised given motion artifact and lack of contrast. 2. Anasarca. No retroperitoneal hematoma. 3. No bowel obstruction. Colonic diverticulosis without evidence for acute diverticulitis. 4. Moderate right and small left pleural effusions. 5. Severe T12 compression fracture and moderate L3 compression fracture which a re probably old. ACT 112: Negative or not required by law. Electronically signed by: Raymond García M.D. 05/29/2019 4:00 PM XR chest 1V portable CLINICAL HISTORY: Sepsis. COMPARISON STUDY: Chest radiograph May 25, 2019. FINDINGS: A small right pleural effusion is noted. Right basilar opacity has slightly increased since prior exam. Note is made of moderate cardiomegaly. There is no evidence for pulmonary edema. No pneumothorax is present. IMPRESSION: 1. Increase in right basilar opacity which may reflect pneumonia or atelectasis. 2. Small right pleural effusion. 3. Moderate cardiomegaly without evidence for pulmonary edema. ACT 112: Negative or not required by law. Electronically signed by: Raymond García M.D. 05/29/2019 2:02 PM ECG Data Attestation: I personally reviewed and interpreted this ECG as follows: Indication: + weakness and + other (confusion) Rate (beats per minute): 78 Rhythm: + atrial fibrillation ECG [place]: + Right axis deviation (Rightward axis.) ECG ST segments: no ST elevation ECG Findings: + PVCs and + Other (ST and T wave abnormalities. QT-c 458. QRS 86. ) Comparison ECG Date: from (05/25/2019) Change: no significant change Blood Pressure Blood Pressure Findings: Elevated blood pressure Blood Pressure Disposition: further management by hospitalist OLI Rizzo The patient is a pleasant 73-year-old woman with a past medical history of alcoholic dementia, A. fib on Eliquis who presents emerged department from a custodial facility with worsening weakness and confusion over the past several days per HPI. Of note, the patient was seen in emergency department several days ago and diagnosed with pneumonia. On arrival the patient is ill- appearing, fatigued but no acute distress, with a temperature of 35.0, heart rate in the 100s and blood pressure ranging from 70-100s/50-70s. On exam patient appears clinically dry. She has diminished breath sounds at the bases. She is moving all extremities equally without focal neuro deficits. She does have ecchymosis of the right lateral and posterior leg that does appear to be old and compartments are soft. EKG without overt acute ischemia. Chest x-ray demonstrates increase in the patient's previously identified right basilar pneumonia. CT head and cervical spine negative for traumatic findings. CT of the chest demonstrates bilateral pleural effusions right greater than left. CT abdomen pelvis negative for retroperitoneal hematoma. Compression fractures appreciated that are likely old. BC and platelets within normal limits. H/H 9.0/28.4 which is decreased from 14.4/45.5 on the patient's last ED visit on May 25. MCV 90. There is no report of bloody or black stools. Given the patient's reassuring CT imaging unclear etiology to this drop in H/H. INR 1.9 in the setting of the patient being on Eliquis. ABG with pH of 7.48 and PO2 of 75 with a saturation of 95%. Chemistry without acidosis. Creatinine is 1.6 within patient's prior range of values. Of note. The patient initially had multiple fingerstick glucose measurements that were low in the 40s. Thus she was treated initially with D50 x2. However subsequently the patient's serum blood work returned with a glucose of 200. It is unclear whether or not the patient's fingerstick measurements initially were erroneous due to her poor perfusion. Medium 1.5 with repletion provided. Patient initial troponin was 0.24 she is increased from her last value on 05/23 however within prior range of values. Only could be related to demand in the setting of the patient's illness. UA does demonstrate positive nitrites without bacteria or WBCs. Flu was negative. Upon identification of the patient's hypothermia the patient was placed under a bear hugger. She was provided with IV fluid hydration and subsequently her blood pressure did stabilize with fluid alone. Of note, I did discuss the patient's presentation with her son over the phone as we were undergoing her evaluation. He did consent for blood transfusion or central access if needed. However given the patient's stabilization these are deferred at this time. Plan to trend H/H. Patient son did arrive to the bedside after the patient had been admitted. He was updated on the patient's evaluation and management. Case was discussed with Dr. Gilbert, [facility] hospitalist, who evaluated the patient for admission. Impression & Plan Sepsis, Anemia, Hypothermia, Hypotension, Metabolic encephalopathy, Hypoglycemia Discharge Plan Visit Data *Final* Discharge Date/Time: 05/29/19 19:15 Chief Complaint: Confusion ED Provider: Kalyan Cabral Discharge Problem: Sepsis, Anemia, Hypothermia, Hypotension, Metabolic encephalopathy, Hypoglycemia Patient Disposition: Admitted As Inpatient Discharge Instructions Interventions: ED Discharge Assessment Last Done: 05/29/19 19:15 Discharge Problem: Sepsis Qualifiers: Sepsis type: sepsis due to unspecified organism Sepsis acute organ dysfunction status: unspecified Qualified Code(s): A41.9 - Sepsis, unspecified organism Anemia Qualifiers: Anemia type: unspecified type Qualified Code(s): D64.9 - Anemia, unspecified Hypothermia Qualifiers: Encounter type: initial encounter Qualified Code(s): T68.XXXA - Hypothermia, initial encounter Hypotension Qualifiers: Hypotension type: unspecified hypotension type Qualified Code(s): I95.9 - Hypotension, unspecified The scribe's documentation has been prepared under my direction and personally reviewed by me in its entirety. I confirm that the note above accurately reflects all work, treatment, procedures, and medical decision making performed by me.
[2019-05-29] MEDS ORDERED: FOLIC ACID 1 MG TAB PO SCH (19:46)
[2019-05-29] MEDS ORDERED: ALUMINUM/MAGNESIUM SUSP 30 ML UDC PO PRN (19:46)
[2019-05-29] MEDS ORDERED: DOCUSATE SODIUM/SENNA 50/8.6MG TAB PO PRN (19:46)
[2019-05-29] MEDS ORDERED: POLYETHYLENE (MIRALAX) 17 GM PACK PO PRN (19:46)
[2019-05-29] MEDS ORDERED: NSS + 20MEQ KCL 20 MEQ/1,000 ML BAG IV SCH (19:46)
[2019-05-29] MEDS ORDERED: ACETAMINOPHEN 325 MG TAB PO PRN (19:46)
[2019-05-29] MEDS ORDERED: LORazepam 1 MG/2 ML VIAL IV PRN (19:46)
[2019-05-29] MEDS ORDERED: MAGNESIUM HYDROXIDE SUSP 30 ML UDC PO PRN (19:46)
[2019-05-29 20:49] LABS: INR 1.6 (0.9-1.1); Partial Thromboplastin Ratio 1.8; Prothrombin Time 16.2 Seconds (9.0-12.0)
[2019-05-29] MEDS: METOPROLOL SUCC 50MG EXT REL TAB PO SCH (20:51)
[2019-05-29] MEDS: ALBUTEROL HFA 8 GM INHALER INH SCH (20:52)
--- NOTE | 2019-05-29 20:57 | Pharmacy Report ---
Pharmacy Abx Initial Consult - Date of Service May 29, 2019 - Pharmacy Dosing Scope Date of Consult: 05/29/19 Consultation requested by: Dr. MONREAL Pharmacy is consulted to initiate Vancomycin IV dosing therapy, order appropriate labs and adjust drug dose/frequency. - Subjective The patient is a 73 year old F admitted on 05/29/19 18:06 with CC of confusion - Objective Height: 5 ft 2 in Weight: 70 kg Vital Signs (Past 12hrs): Vital Signs Temp Pulse Pulse Resp BP BP Pulse Ox 05/29/19 19:30 36.3 C L 88 20 104/70 05/29/19 19:01 78 24 91/54 L 05/29/19 18:31 83 22 91/63 L 94 05/29/19 18:00 17 93/59 L 05/29/19 17:31 74 23 101/65 05/29/19 17:00 116 H 32 H 86/59 L 05/29/19 16:39 81 16 88/63 L 05/29/19 16:01 76 18 87/53 L 99 05/29/19 15:50 74 19 95/55 L 05/29/19 15:47 88 21 95/55 L 05/29/19 15:45 79 21 05/29/19 15:07 110 H 21 75/61 L 95 05/29/19 14:31 69 19 97/58 L 05/29/19 14:25 35.4 C L 05/29/19 14:07 78 23 96/60 L 05/29/19 13:50 72 22 117/73 05/29/19 13:28 90 22 70/55 L 05/29/19 13:13 77 19 79/50 L 05/29/19 12:31 82 23 72/65 L 05/29/19 12:19 79 23 104/57 L 05/29/19 11:52 36.4 C L 89 20 82/51 L Lab Results (24hrs): Laboratory Tests (24 Hours) 05/29/19 05/29/19 12:39 12:39 WBC 6.69 Neut # (Auto) 5.19 Creatinine 1.65 H Est Cr Clr Drug Dosing 28.2 Micro Results: 05/29/19 12:39 Aerobic Blood Culture - Pending Blood Anaerobic Blood Culture - Pending 05/29/19 12:39 Aerobic Blood Culture - Pending Blood Anaerobic Blood Culture - Pending - Risk Factors for Resistance * Resident in a [facility] or extended-care facility - Assessment & Plan Assessment 73 year old F treated empirically with Cefepime and IV Vancomycin Plan Vancomycin for treatment of Empiric broad spectrum Vancomycin IV * Estimated PK Parameters: Vd 0.7 L/kg, [place] 0.028 hr-1, t1/2 ~25 hr * Loading dose: 1250 mg (18 mg/kg) * Maintenance dose: 1000 mg IV (14.3 mg/kg) every 30 hours * Goal trough level for empiric : 13 to 17 mcg/mL * Trough/Random level deferred pending continuation beyond empiric * A less than traditional dose and/or extended dosing interval has/have been selected due to likelihood of drug accumulation in patient with h/o CKD. Pharmacy will continue to follow and will adjust dose/frequency as necessary. Thank you.
[2019-05-29] MEDS ORDERED: QUETIAPINE FUMARATE 100 MG TABLET PO SCH (21:00)
[2019-05-29] MEDS ORDERED: APIXABAN 5 MG TABLET PO SCH (21:00)
[2019-05-29 21:01] LABS: Partial Thromboplastin Time 48.2 Seconds (21.0-31.0)
[2019-05-29] MEDS ORDERED: SODIUM CHLORIDE 0.9% 250 ML IV PRN (22:51)
[2019-05-29] MEDS ORDERED: MAGNESIUM OXIDE 400 MG TAB PO SCH (23:00)
[2019-05-29] MEDS ORDERED: FUROSEMIDE 20 MG in SYRINGE 0 ML IV SCH (23:00)
[2019-05-29 23:53] LABS: Hematocrit (blood only) 25.7 % (37-47); Hemoglobin 8.2 g/dL (12.0-16.0); Mean Corpuscular Hemoglobin 29.2 pg (25-34); Mean Corpuscular Volume 91.5 fL (80-100); RDW Coefficient of Variation 21.3 % (11.5-14.5); RDW Standard Deviation 71.1 fL (36.4-46.3); Red Blood Count 2.81 M/uL (4.2-5.4)
[2019-05-30] MEDS ORDERED: SODIUM CHLORIDE 0.9% 250 ML IV PRN (00:05)
[2019-05-30 00:07] LABS: Magnesium 1.8 mg/dl (1.8-2.4)
[2019-05-30 00:19] LABS: Mean Corpuscular Hgb Conc 31.9 g/dL (32-36); Mean Platelet Volume 10.4 fL (7.4-10.4); Platelet Count 112 K/uL (130-400)
[2019-05-30 00:20] LABS: Platelet Estimate Decreased (Normal)
[2019-05-30 01:55] LABS: Basophils # (auto) 0.01 K/uL (0-0.2); Basophils % (auto) 0.2 %; Eosinophils # (auto) 0.17 K/uL (0-0.5); Eosinophils % (auto) 3.2 %; Hematocrit (blood only) 26.7 % (37-47); Hemoglobin 8.5 g/dL (12.0-16.0); Immature Granulocytes # (auto) 0.01 K/uL (0.00-0.02); Immature Granulocytes % (auto) 0.2 %; Lymphocytes # (auto) 0.76 K/uL (1.2-3.4); Lymphocytes % (auto) 14.5 %; Mean Corpuscular Hgb Conc 31.8 g/dL (32-36); Mean Corpuscular Volume 91.1 fL (80-100); Mean Platelet Volume 9.8 fL (7.4-10.4); Monocytes # (auto) 0.42 K/uL (0.11-0.59); Neutrophils # (auto) 3.87 K/uL (1.4-6.5); Neutrophils % (auto) 73.9 %; Platelet Count 131 K/uL (130-400); RDW Coefficient of Variation 21.1 % (11.5-14.5); RDW Standard Deviation 69.9 fL (36.4-46.3); Red Blood Count 2.93 M/uL (4.2-5.4); White Blood Count 5.24 K/uL (4.8-10.8)
[2019-05-30 03:00] LABS: Anisocytosis Present; Polychromasia 1+; Toxic Vacuolation 1+
[2019-05-30 03:04] LABS: INR 1.7 (0.9-1.1); Partial Thromboplastin Ratio 1.8; Prothrombin Time 16.7 Seconds (9.0-12.0)
[2019-05-30 03:08] LABS: Albumin Level 2.3 gm/dl (3.4-5.0); BUN Creatinine Ratio 14.8 (10-20); Bilirubin,Total 0.9 mg/dl (0.2-1); Calcium 7.8 mg/dl (8.5-10.1); Creatinine Clr Calc Pharmacy 29.4 ml/min; Est GFR (African American) 36.9; Est GFR (Non-African American) 31.8; Globulin 2.3 gm/dl (2.5-4.0); Potassium 3.8 mmol/L (3.5-5.1); Total Protein 4.6 gm/dl (6.4-8.2); Troponin I 0.449 ng/ml (0-0.045)
[2019-05-30 03:11] LABS: Partial Thromboplastin Time 48.3 Seconds (21.0-31.0)
--- NOTE | 2019-05-30 08:08 | Ultrasound Report ---
US venous doppler LE BI HISTORY: Pain. Edema. possible DVT, right LE hematoma COMPARISON STUDY: None. FINDINGS: There is normal compressibility, flow, and augmentation within the bilateral lower extremit y deep venous systems. IMPRESSION: No DVT within the right or left lower extremity. ACT 112: Negative or not required by law. The above report was generated using voice recognition software. It may contain grammatical, syntax or spelling errors. Electronically signed by: Boone Boss M.D. 05/30/2019 8:06 AM
--- NOTE | 2019-05-30 08:15 | XRay Report ---
XR tibia fibula RT 2V CLINICAL HISTORY: extensive bruise trauma. Pain. COMPARISON: None. DISCUSSION: The bones and joint spaces appear intact. There is no evidence of fracture, dislocation o r bony disease. Significant soft tissue edema IMPRESSION: Soft tissue edema. No acute bony abnormality. ACT 112: Negative or not required by law. The above report was generated using voice recognition software. It may contain grammatical, syntax or spelling errors. Electronically signed by: Boone Boss M.D. 05/30/2019 8:14 AM
--- NOTE | 2019-05-30 08:16 | XRay Report ---
XR femur RT 2V routine CLINICAL HISTORY: extensive bruse trauma. Pain. COMPARISON: None. DISCUSSION: Moderate generalized degenerative change. No well-defined fracture or dislocation. Trace periosteal reaction anterior aspect distal femur possibly pre-existing. IMPRESSION: Soft tissue edema. Degenerative change. ACT 112: Negative or not required by law. The above report was generated using voice recognition software. It may contain grammatical, syntax or spelling errors. Electronically signed by: Boone Boss M.D. 05/30/2019 8:15 AM
[2019-05-30] MEDS: LACTATED RINGER'S 1,000 ML IV SCH ×2 (08:18→20:44)
[2019-05-30] MEDS ORDERED: SERTRALINE HCL 50 MG TABLET PO SCH ×2 (09:00)
[2019-05-30] MEDS ORDERED: DOCUSATE SODIUM 100 MG CAP PO SCH (09:00)
[2019-05-30] MEDS ORDERED: FOLIC ACID 1 MG TAB PO SCH (09:00)
[2019-05-30] MEDS ORDERED: NON-FORMULARY MEDICATION (Biotin 1,000 MCG) PO SCH (09:00)
[2019-05-30] MEDS ORDERED: THIAMINE HCL 100 MG TAB PO SCH (09:00)
[2019-05-30] MEDS ORDERED: dilTIAZem ER 180 MG CAPCR PO SCH (09:00)
[2019-05-30] MEDS ORDERED: POTASSIUM CHLORIDE 20 MEQ TABCR PO SCH (09:00)
[2019-05-30] MEDS ORDERED: MAGNESIUM OXIDE 400 MG TAB PO SCH (09:00)
--- NOTE | 2019-05-30 09:31 | Hospitalist Progress Note ---
Date of Service May 30, 2019 Assessment & Plan (1) Acute blood loss anemia: 73 yo F with PMHx AFib on recent AC with Eliqius, hypertension, syncope, alcohol abuse with alcoholic dementia, elevated troponin, depression admitted for concern for acute blood loss anemia vs. sepsis due to unknown source. Acute blood loss anemia: - Pt's Hgb has dropped from 13.5 -> 8.5 in the course of one week. Hgb stable today at 8.5. - Was recently started on Eliqius last admission for AFib anticoagulation. - No evidence of bleeding on CT Abdomen/Pelvis, no otis blood in stools reported. Hemoccult pending. - Likely this blood loss is due to the large hematoma on pt's right posterior thigh. However examination on palpation of thigh is benign and not concerning for compartment syndrome or arterial bleed. - Continue to monitor for tachycardia, profound hypotension, CBC q12h. - 2u PRBCs on hold; pt's son as next-of-kin signed consent for blood. ? Sepsis: - While pt's lactate was elevated on admission to 4.1, her clinical picture is less likely to be sepsis as pt's imaging does not suggest pneumonia, UA positive for nitrites but no increase in urination, no hematuria, and pt's baseline mental status difficult to determine due to alcoholic dementia. - Lactate now normal. Procal normal. Will trend procal AM. - Given UA will continue cefepime and monitor for improvement, however expect that pt's initial presentation of tachycardia, tachypnea, hypotension was due to acute large volume blood loss. - UCx sent but not before antibiotics were started, so unlikely to be clinically helpful. BCx x2 pending drawn pre-Abx; Wound culture of toe pending. - LR @80mL/hr (less than maintenance, more to prevent dehydration while NPO). Pt has anasarca and pleural effusions bilaterally and so light fluids favored. JESS on CKD stage III: - Pt's baseline Cr ~1.3, now with Cr 1.61. - Expect kidney injury due to hypovolemia from blood loss. - Light fluids, trend BMP daily. Anasarca with pleural effusions and decreased albumin: - Pt with anasarca on CT, signs of fluid overload with bilateral pleural effusions (mild-moderate). - No diuretics due to JESS, acute blood loss. - Continue to monitor. Atrial fibrillation: - Recently placed on Eliqius for anticoagulation. Held this admission in the setting of acute blood loss. - Rate controlled with PO diltiazem and metoprolol. Pt NPO at this time therefore not receiving oral rate control medications; HR in 70s. Alcoholic dementia with ? AMS: - Per prior notes pt becomes more altered, disoriented, agitated with benzodiazepines. Will hold all benzos today and for this admission given her adverse reaction to them. - CT Head shows no acute intracranial abnormalities. - Continue thiamine, folic acid, biotin. - Continue magnesium supplementation IV while NPO. Atelectasis vs. pulmonary infiltrate: - Pt without increased oxygen demand, increased work of breathing. Tachypnea quickly resolved in ED with volume (3L IV fluid). - CXR showed possible consolidation, however CT chest showed atelectasis. Elevated troponin: - Pt has a history of elevated troponin previously due to demand on kidneys with CKD. - Acute blood loss likely playing a role in heart stress. - Cardiology saw and appreciate input: limited Echo performed today, await r ead. No catheterization intervention recommended. Compression fracture: - Appears old on imaging. - No intervention at this time. Hypothyroidism: - Pt with history of hypothyroidism, however medication list dosage is extremely high. - TSH on admission 7.29. - Will clarify with son her home regimen. Depression: - At home takes sertraline, quetiapine. - NPO at this time due to mental status; holding home meds until can tolerate PO. Code Status: FULL CODE; will discuss with pt's next of kin FEN/GI: NPO; LR @ 80mL/hr, replete electrolytes as needed DVT ppx: pt with acute blood loss anemia, ppx contraindicated Dispo: med/surg with telemetry (2) Sepsis: (3) Hematoma: (4) Abnormal finding on urinalysis: (5) Atelectasis: (6) Elevated troponin: (7) Acute kidney injury: (8) Hypomagnesemia: (9) Alcoholic dementia: (10) Mitral regurgitation: (11) Hypotension: (12) Atrial fibrillation: (13) CKD (chronic kidney disease) stage 3, GFR 30-59 ml/min: (14) Hx of falling: (15) History of compression fracture of spine: (16) Pleural effusion: (17) Anasarca: (18) Hypoalbuminemia: Supervising Physician Co-Signing Physician Notes I personally examined the patient and verified all lucio points of history and exam, discussed case, and agree with decision making with Dr Parks. no meaningful HPI or ROS. case discussed extensively w dr parks. probably nearly an hour spent in chart review and case discussion vitals noted nad but laying in bed eyes open follows some doesn't talk. heent nc at mm sl dry. cardio distant no r/m/g. lungs cta b/l no r/r/w good effort. ext no cyanosis, extensive RLE bruising and tenderness no tenseness to suggest compartment syndrome and area of bruising, while diffuse, is reasonably soft. no focal neuro deficits. acute blood loss anemia - no s/s overt GI bleeding (heme test stools pending, b ut with no gross blood and ~5g drop in Hgb GI bleeding certainly does not appear primary), no retroperitoneal bleed on CT, leg bruising does look big enough and extensive enough to account for the blood loss - probably bleeding/bruising from fall and anticoagulation. stopped anticoagulant. serial exams and serial Hgb (appearing to stabilize, hemodynamics thus far stable). follow closely, transf use prn, hold anticoagulation. afib - rate controlled, from blood loss blood thinner on hold at least for now. holding meds due to blood loss anemia and low-end blood pressures - likely will need to restart slowly in the coming days; if tachycardia occurs (and is not due to recurrent blood loss) then would consider short acting IV beta edwin or dilt gtt. concern on sepsis -no overt infections - urine (+) on UA but not clear if she has symptoms. follow clinically, follow CBC (no wbc) follow procal (was low on admit - will trend) -- continue empiric abx but low threshold to stop if it becomes clear there was no septic process at play. otherwise as above Subjective Pt without acute events overnight. Unable to answer most questions, will open eyes. Sometimes will gesture toward abdomen when asked if she has pain. No tachycardia at this time, normotensive. Per Case Management some difficulty with son (next of kin) regarding future placement in residential facility because of possible liquidation of her assets. Review of Systems Review of Systems: Unobtainable due to cognitive status Physical Exam Constitutional: well developed, + ill appearing and + altered mental status Respiratory: normal respiratory effort, lungs clear to auscultation Cardiovascular: Rate/Rhythm: regular rate Heart Sounds: no murmur irregularly irregular rhythm Gastrointestinal (Abdomen): normal bowel sounds, soft, nontender, no hepatosplenomegaly Percussion/Palpation: no guarding Skin: Several ecchymoses over bilateral UE. LLE without ecchymoses. Posterior thigh with large area of dark purple ecchymosis from groin to posterior knee. Covers entirety of posterior thigh. limb is soft, no areas of tightness or warmth. Psychiatric: Orientation: + not alert and + not oriented x 3 Results & Data Vital Signs (Past 12 Hours) Vital Signs Temp Pulse Pulse Resp BP Pulse Ox 05/30/19 07:46 36.5 C 18 92/64 L 05/30/19 06:21 86 05/30/19 04:17 36.6 C 75 20 98/59 L 95 05/30/19 00:42 97 H 05/29/19 23:27 36.3 C L 62 18 106/64 93 Laboratory Results Laboratory Results - last 24 hr 05/29/19 05/29/19 05/29/19 12:04 12:39 12:39 WBC 6.69 RBC 3.14 L Hgb 9.0 L POC Hgb Hct 28.4 L POC Hct MCV 90.4 MCH 28.7 MCHC 31.7 L RDW Std Deviation 69.5 H RDW Coeff of Mario 21.2 H Plt Count 136 MPV 10.2 Immature Gran % (Auto) 0.1 Neut % (Auto) 77.7 Lymph % (Auto) 12.4 [place] % (Auto) 7.9 Eos % (Auto) 1.8 Baso % (Auto) 0.1 Immature Gran # (Auto) 0.01 Neut # (Auto) 5.19 Lymph # (Auto) 0.83 L [place] # (Auto) 0.53 Eos # (Auto) 0.12 Baso # (Auto) 0.01 Toxic Vacuolation Platelet Estimate Polychromasia Anisocytosis Present PT 18.2 H INR 1.9 H APTT 50.0 H* PTT Ratio 1.8 ABG pH ABG pCO2 ABG pO2 ABG HCO3 ABG O2 Saturation ABG Base Excess Alexi Test Barometric Pressure Oxygen Given POC Sodium Sodium POC Potassium Potassium POC Chloride Chloride Carbon Dioxide POC Total CO2 Anion Gap POC Anion Gap POC BUN BUN Creatinine POC Creatinine Est Cr Clr Drug Dosing Est GFR ( Amer) Est GFR (Non-Af Amer) BUN/Creatinine Ratio Glucose POC Glucose 45 L* POC Glucose (other) Lactate Calcium POC Ioniz Calcium Raf Phosphorus Magnesium Total Bilirubin AST ALT Alkaline Phosphatase Ammonia Troponin I NT-Pro-B Natriuret Pep Total Protein Albumin Globulin Albumin/Globulin Ratio Folate Procalcitonin TSH Specimen Hemolysis Urine Color Urine Appearance Urine pH Ur Specific [place] Urine Protein Urine Glucose (UA) Urine Ketones Urine Blood Urine Nitrite Urine Bilirubin Urine Urobilinogen Ur Leukocyte Esterase Urine WBC (Auto) Urine RBC (Auto) U Hyaline Cast (Auto) U Epithel Cells (Auto) Urine Bacteria (Auto) Nasal Screen MRSA (PCR) Influenza Type A (PCR) Influenza Type B (PCR) Blood Type Blood Type Recheck Antibody Screen Crossmatch 05/29/19 05/29/19 05/29/19 12:39 12:39 12:50 WBC RBC Hgb POC Hgb Hct POC Hct MCV MCH MCHC RDW Std Deviation RDW Coeff of Mario Plt Count MPV Immature Gran % (Auto) Neut % (Auto) Lymph % (Auto) [place] % (Auto) Eos % (Auto) Baso % (Auto) Immature Gran # (Auto) Neut # (Auto) Lymph # (Auto) [place] # (Auto) Eos # (Auto) Baso # (Auto) Toxic Vacuolation Platelet Estimate Polychromasia Anisocytosis PT INR APTT PTT Ratio ABG pH ABG pCO2 ABG pO2 ABG HCO3 ABG O2 Saturation ABG Base Excess Alexi Test Barometric Pressure Oxygen Given POC Sodium Sodium 138 POC Potassium Potassium 3.9 POC Chloride Chloride 104 Carbon Dioxide 22 POC Total CO2 Anion Gap 12.0 H POC Anion Gap POC BUN BUN 24 H Creatinine 1.65 H POC Creatinine Est Cr Clr Drug Dosing 28.2 Est GFR ( Amer) 35.8 Est GFR (Non-Af Amer) 30.9 BUN/Creatinine Ratio 14.7 Glucose 227 H POC Glucose 58 L* POC Glucose (other) Lactate 1.6 Calcium 7.9 L POC Ioniz Calcium Raf Phosphorus 3.7 Magnesium 1.5 L Total Bilirubin 1.0 AST 20 ALT 13 Alkaline Phosphatase 46 Ammonia Troponin I 0.241 H* NT-Pro-B Natriuret Pep Total Protein 4.5 L Albumin 2.3 L Globulin 2.2 L Albumin/Globulin Ratio 1.1 Folate Procalcitonin TSH Specimen Hemolysis Urine Color Urine Appearance Urine pH Ur Specific [place] Urine Protein Urine Glucose (UA) Urine Ketones Urine Blood Urine Nitrite Urine Bilirubin Urine Urobilinogen Ur Leukocyte Esterase Urine WBC (Auto) Urine RBC (Auto) U Hyaline Cast (Auto) U Epithel Cells (Auto) Urine Bacteria (Auto) Nasal Screen MRSA (PCR) Influenza Type A (PCR) Influenza Type B (PCR) Blood Type Blood Type Recheck Antibody Screen Crossmatch 05/29/19 05/29/19 05/29/19 12:52 12:56 13:09 WBC RBC Hgb POC Hgb Hct POC Hct MCV MCH MCHC RDW Std Deviation RDW Coeff of Mario Plt Count MPV Immature Gran % (Auto) Neut % (Auto) Lymph % (Auto) [place] % (Auto) Eos % (Auto) Baso % (Auto) Immature Gran # (Auto) Neut # (Auto) Lymph # (Auto) [place] # (Auto) Eos # (Auto) Baso # (Auto) Toxic Vacuolation Platelet Estimate Polychromasia Anisocytosis PT INR APTT PTT Ratio ABG pH 7.48 H ABG pCO2 31 L ABG pO2 75 L ABG HCO3 22 ABG O2 Saturation 95.2 H ABG Base Excess -1.0 Alexi Test Pos Barometric Pressure 733.3 Oxygen Given ROOM AIR POC Sodium Sodium POC Potassium Potassium POC Chloride Chloride Carbon Dioxide POC Total CO2 Anion Gap POC Anion Gap POC BUN BUN Creatinine POC Creatinine Est Cr Clr Drug Dosing Est GFR ( Amer) Est GFR (Non-Af Amer) BUN/Creatinine Ratio Glucose POC Glucose 36 L* POC Glucose (other) Lactate Calcium POC Ioniz Calcium Raf Phosphorus Magnesium Total Bilirubin AST ALT Alkaline Phosphatase Ammonia Troponin I NT-Pro-B Natriuret Pep Total Protein Albumin Globulin Albumin/Globulin Ratio Folate Procalcitonin TSH Specimen Hemolysis Urine Color Urine Appearance Urine pH Ur Specific [place] Urine Protein Urine Glucose (UA) Urine Ketones Urine Blood Urine Nitrite Urine Bilirubin Urine Urobilinogen Ur Leukocyte Esterase Urine WBC (Auto) Urine RBC (Auto) U Hyaline Cast (Auto) U Epithel Cells (Auto) Urine Bacteria (Auto) Nasal Screen MRSA (PCR) Influenza Type A (PCR) Influenza Type B (PCR) Blood Type A Positive Blood Type Recheck Antibody Screen NEGATIVE Crossmatch See Detail 05/29/19 05/29/19 05/29/19 13:11 13:36 13:55 WBC RBC Hgb POC Hgb 9.2 L Hct POC Hct 27 L MCV MCH MCHC RDW Std Deviation RDW Coeff of Mario Plt Count MPV Immature Gran % (Auto) Neut % (Auto) Lymph % (Auto) [place] % (Auto) Eos % (Auto) Baso % (Auto) Immature Gran # (Auto) Neut # (Auto) Lymph # (Auto) [place] # (Auto) Eos # (Auto) Baso # (Auto) Toxic Vacuolation Platelet Estimate Polychromasia Anisocytosis PT INR APTT PTT Ratio ABG pH ABG pCO2 ABG pO2 ABG HCO3 ABG O2 Saturation ABG Base Excess Alexi Test Barometric Pressure Oxygen Given POC Sodium 137 Sodium POC Potassium 3.7 Potassium POC Chloride 97 L Chloride Carbon Dioxide POC Total CO2 27 Anion Gap POC Anion Gap 18.0 POC BUN 27 H BUN Creatinine POC Creatinine 1.6 H Est Cr Clr Drug Dosing Est GFR ( Amer) Est GFR (Non-Af Amer) BUN/Creatinine Ratio Glucose POC Glucose 70 POC Glucose (other) 296 H Lactate Calcium POC Ioniz Calcium Raf 1.13 Phosphorus Magnesium Total Bilirubin AST ALT Alkaline Phosphatase Ammonia Troponin I NT-Pro-B Natriuret Pep Total Protein Albumin Globulin Albumin/Globulin Ratio Folate Procalcitonin TSH Specimen Hemolysis Urine Color Urine Appearance Urine pH Ur Specific [place] Urine Protein Urine Glucose (UA) Urine Ketones Urine Blood Urine Nitrite Urine Bilirubin Urine Urobilinogen Ur Leukocyte Esterase Urine WBC (Auto) Urine RBC (Auto) U Hyaline Cast (Auto) U Epithel Cells (Auto) Urine Bacteria (Auto) Nasal Screen MRSA (PCR) Influenza Type A (PCR) Neg for Influ A Influenza Type B (PCR) Neg for Influ B Blood Type Blood Type Recheck Antibody Screen Crossmatch 05/29/19 05/29/19 05/29/19 14:29 14:31 20:13 WBC RBC Hgb POC Hgb Hct POC Hct MCV MCH MCHC RDW Std Deviation RDW Coeff of Mario Plt Count MPV Immature Gran % (Auto) Neut % (Auto) Lymph % (Auto) [place] % (Auto) Eos % (Auto) Baso % (Auto) Immature Gran # (Auto) Neut # (Auto) Lymph # (Auto) [place] # (Auto) Eos # (Auto) Baso # (Auto) Toxic Vacuolation Platelet Estimate Polychromasia Anisocytosis PT 16.2 H INR 1.6 H APTT 48.2 H* PTT Ratio 1.8 ABG pH ABG pCO2 ABG pO2 ABG HCO3 ABG O2 Saturation ABG Base Excess Alexi Test Barometric Pressure Oxygen Given POC Sodium Sodium POC Potassium Potassium POC Chloride Chloride Carbon Dioxide POC Total CO2 Anion Gap POC Anion Gap POC BUN BUN Creatinine POC Creatinine Est Cr Clr Drug Dosing Est GFR ( Amer) Est GFR (Non-Af Amer) BUN/Creatinine Ratio Glucose POC Glucose 185 H POC Glucose (other) Lactate Calcium POC Ioniz Calcium Raf Phosphorus Magnesium Total Bilirubin AST ALT Alkaline Phosphatase Ammonia Troponin I NT-Pro-B Natriuret Pep Total Protein Albumin Globulin Albumin/Globulin Ratio Folate Procalcitonin TSH Specimen Hemolysis Urine Color Dark Yellow Urine Appearance Clear Urine pH 5.0 Ur Specific [place] 1.023 Urine Protein Negative Urine Glucose (UA) 1+ H Urine Ketones Trace H Urine Blood Negative Urine Nitrite Positive A Urine Bilirubin Negative Urine Urobilinogen Negative Ur Leukocyte Esterase Trace H Urine WBC (Auto) 1-5 Urine RBC (Auto) 0-4 U Hyaline Cast (Auto) >30 H U Epithel Cells (Auto) 5-10 H Urine Bacteria (Auto) Negative Nasal Screen MRSA (PCR) Influenza Type A (PCR) Influenza Type B (PCR) Blood Type Blood Type Recheck Antibody Screen Crossmatch 05/29/19 05/29/19 05/29/19 20:13 22:19 23:33 WBC RBC Hgb POC Hgb Hct POC Hct MCV MCH MCHC RDW Std Deviation RDW Coeff of Mario Plt Count MPV Immature Gran % (Auto) Neut % (Auto) Lymph % (Auto) [place] % (Auto) Eos % (Auto) Baso % (Auto) Immature Gran # (Auto) Neut # (Auto) Lymph # (Auto) [place] # (Auto) Eos # (Auto) Baso # (Auto) Toxic Vacuolation Platelet Estimate Polychromasia Anisocytosis PT INR APTT PTT Ratio ABG pH ABG pCO2 ABG pO2 ABG HCO3 ABG O2 Saturation ABG Base Excess Alexi Test Barometric Pressure Oxygen Given POC Sodium Sodium POC Potassium Potassium POC Chloride Chloride Carbon Dioxide POC Total CO2 Anion Gap POC Anion Gap POC BUN BUN Creatinine POC Creatinine Est Cr Clr Drug Dosing Est GFR ( Amer) Est GFR (Non-Af Amer) BUN/Creatinine Ratio Glucose POC Glucose POC Glucose (other) Lactate Calcium POC Ioniz Calcium Raf Phosphorus Magnesium Total Bilirubin AST ALT Alkaline Phosphatase Ammonia Cancelled Troponin I 0.609 H* NT-Pro-B Natriuret Pep Total Protein Albumin Globulin Albumin/Globulin Ratio Folate Procalcitonin TSH Specimen Hemolysis Urine Color Urine Appearance Urine pH Ur Specific [place] Urine Protein Urine Glucose (UA) Urine Ketones Urine Blood Urine Nitrite Urine Bilirubin Urine Urobilinogen Ur Leukocyte Esterase Urine WBC (Auto) Urine RBC (Auto) U Hyaline Cast (Auto) U Epithel Cells (Auto) Urine Bacteria (Auto) Nasal Screen MRSA (PCR) Negative Influenza Type A (PCR) Influenza Type B (PCR) Blood Type Blood Type Recheck Antibody Screen Crossmatch 05/29/19 05/29/19 05/29/19 23:33 23:33 23:33 WBC RBC Hgb POC Hgb Hct POC Hct MCV MCH MCHC RDW Std Deviation RDW Coeff of Mario Plt Count MPV Immature Gran % (Auto) Neut % (Auto) Lymph % (Auto) [place] % (Auto) Eos % (Auto) Baso % (Auto) Immature Gran # (Auto) Neut # (Auto) Lymph # (Auto) [place] # (Auto) Eos # (Auto) Baso # (Auto) Toxic Vacuolation Platelet Estimate Polychromasia Anisocytosis PT INR APTT PTT Ratio ABG pH ABG pCO2 ABG pO2 ABG HCO3 ABG O2 Saturation ABG Base Excess Alexi Test Barometric Pressure Oxygen Given POC Sodium Sodium POC Potassium Potassium POC Chloride Chloride Carbon Dioxide POC Total CO2 Anion Gap POC Anion Gap POC BUN BUN Creatinine POC Creatinine Est Cr Clr Drug Dosing Est GFR ( Amer) Est GFR (Non-Af Amer) BUN/Creatinine Ratio Glucose POC Glucose POC Glucose (other) Lactate 4.1 H* Calcium POC Ioniz Calcium Raf Phosphorus Magnesium 1.8 Total Bilirubin AST ALT Alkaline Phosphatase Ammonia Troponin I NT-Pro-B Natriuret Pep 06571 H Total Protein Albumin Globulin Albumin/Globulin Ratio Folate Procalcitonin TSH Specimen Hemolysis Urine Color Urine Appearance Urine pH Ur Specific [place] Urine Protein Urine Glucose (UA) Urine Ketones Urine Blood Urine Nitrite Urine Bilirubin Urine Urobilinogen Ur Leukocyte Esterase Urine WBC (Auto) Urine RBC (Auto) U Hyaline Cast (Auto) U Epithel Cells (Auto) Urine Bacteria (Auto) Nasal Screen MRSA (PCR) Influenza Type A (PCR) Influenza Type B (PCR) Blood Type Cancelled Blood Type Recheck Antibody Screen Cancelled Crossmatch See Detail 05/29/19 05/29/19 05/29/19 23:33 23:34 23:34 WBC 5.90 RBC 2.81 L Hgb 8.2 L POC Hgb Hct 25.7 L POC Hct MCV 91.5 MCH 29.2 MCHC 31.9 L RDW Std Deviation 71.1 H RDW Coeff of Mario 21.3 H Plt Count 112 L MPV 10.4 Immature Gran % (Auto) Neut % (Auto) Lymph % (Auto) [place] % (Auto) Eos % (Auto) Baso % (Auto) Immature Gran # (Auto) Neut # (Auto) Lymph # (Auto) [place] # (Auto) Eos # (Auto) Baso # (Auto) Toxic Vacuolation Platelet Estimate Decreased L Polychromasia Anisocytosis PT INR APTT PTT Ratio ABG pH ABG pCO2 ABG pO2 ABG HCO3 ABG O2 Saturation ABG Base Excess Alexi Test Barometric Pressure Oxygen Given POC Sodium Sodium POC Potassium Potassium POC Chloride Chloride Carbon Dioxide POC Total CO2 Anion Gap POC Anion Gap POC BUN BUN Creatinine POC Creatinine Est Cr Clr Drug Dosing Est GFR ( Amer) Est GFR (Non-Af Amer) BUN/Creatinine Ratio Glucose POC Glucose POC Glucose (other) Lactate Calcium POC Ioniz Calcium Raf Phosphorus Magnesium Total Bilirubin AST ALT Alkaline Phosphatase Ammonia Troponin I NT-Pro-B Natriuret Pep Total Protein Albumin Globulin Albumin/Globulin Ratio Folate Procalcitonin 0.18 TSH Specimen Hemolysis Urine Color Urine Appearance Urine pH Ur Specific [place] Urine Protein Urine Glucose (UA) Urine Ketones Urine Blood Urine Nitrite Urine Bilirubin Urine Urobilinogen Ur Leukocyte Esterase Urine WBC (Auto) Urine RBC (Auto) U Hyaline Cast (Auto) U Epithel Cells (Auto) Urine Bacteria (Auto) Nasal Screen MRSA (PCR) Influenza Type A (PCR) Influenza Type B (PCR) Blood Type Blood Type Recheck A Positive Antibody Screen Crossmatch 05/30/19 05/30/19 05/30/19 01:34 01:34 01:34 WBC RBC Hgb POC Hgb Hct POC Hct MCV MCH MCHC RDW Std Deviation RDW Coeff of Mario Plt Count MPV Immature Gran % (Auto) Neut % (Auto) Lymph % (Auto) [place] % (Auto) Eos % (Auto) Baso % (Auto) Immature Gran # (Auto) Neut # (Auto) Lymph # (Auto) [place] # (Auto) Eos # (Auto) Baso # (Auto) Toxic Vacuolation Platelet Estimate Polychromasia Anisocytosis PT 16.7 H INR 1.7 H APTT 48.3 H* PTT Ratio 1.8 ABG pH ABG pCO2 ABG pO2 ABG HCO3 ABG O2 Saturation ABG Base Excess Alexi Test Barometric Pressure Oxygen Given POC Sodium Sodium 140 POC Potassium Potassium 3.8 POC Chloride Chloride 108 H Carbon Dioxide 28 POC Total CO2 Anion Gap 4.0 POC Anion Gap POC BUN BUN 24 H Creatinine 1.61 H POC Creatinine Est Cr Clr Drug Dosing 29.4 Est GFR ( Amer) 36.9 Est GFR (Non-Af Amer) 31.8 BUN/Creatinine Ratio 14.8 Glucose 103 H POC Glucose POC Glucose (other) Lactate Calcium 7.8 L POC Ioniz Calcium Raf Phosphorus Magnesium Total Bilirubin 0.9 AST 31 ALT 18 Alkaline Phosphatase 48 Ammonia 19.0 Troponin I 0.449 H* NT-Pro-B Natriuret Pep Total Protein 4.6 L Albumin 2.3 L Globulin 2.3 L Albumin/Globulin Ratio 1.0 Folate Procalcitonin TSH Specimen Hemolysis Urine Color Urine Appearance Urine pH Ur Specific [place] Urine Protein Urine Glucose (UA) Urine Ketones Urine Blood Urine Nitrite Urine Bilirubin Urine Urobilinogen Ur Leukocyte Esterase Urine WBC (Auto) Urine RBC (Auto) U Hyaline Cast (Auto) U Epithel Cells (Auto) Urine Bacteria (Auto) Nasal Screen MRSA (PCR) Influenza Type A (PCR) Influenza Type B (PCR) Blood Type Blood Type Recheck Antibody Screen Crossmatch 05/30/19 05/30/19 05/30/19 01:34 01:34 08:37 WBC 5.24 RBC 2.93 L Hgb 8.5 L POC Hgb Hct 26.7 L POC Hct MCV 91.1 MCH 29.0 MCHC 31.8 L RDW Std Deviation 69.9 H RDW Coeff of Mario 21.1 H Plt Count 131 MPV 9.8 Immature Gran % (Auto) 0.2 Neut % (Auto) 73.9 Lymph % (Auto) 14.5 [place] % (Auto) 8.0 Eos % (Auto) 3.2 Baso % (Auto) 0.2 Immature Gran # (Auto) 0.01 Neut # (Auto) 3.87 Lymph # (Auto) 0.76 L [place] # (Auto) 0.42 Eos # (Auto) 0.17 Baso # (Auto) 0.01 Toxic Vacuolation 1+ Platelet Estimate Polychromasia 1+ Anisocytosis Present PT INR APTT PTT Ratio ABG pH ABG pCO2 ABG pO2 ABG HCO3 ABG O2 Saturation ABG Base Excess Alexi Test Barometric Pressure Oxygen Given POC Sodium Sodium POC Potassium Potassium POC Chloride Chloride Carbon Dioxide POC Total CO2 Anion Gap POC Anion Gap POC BUN BUN Creatinine POC Creatinine Est Cr Clr Drug Dosing Est GFR ( Amer) Est GFR (Non-Af Amer) BUN/Creatinine Ratio Glucose POC Glucose POC Glucose (other) Lactate 1.2 Calcium POC Ioniz Calcium Raf Phosphorus Magnesium Total Bilirubin AST ALT Alkaline Phosphatase Ammonia Troponin I NT-Pro-B Natriuret Pep Total Protein Albumin Globulin Albumin/Globulin Ratio Folate > 24.00 Procalcitonin TSH Specimen Hemolysis Urine Color Urine Appearance Urine pH Ur Specific [place] Urine Protein Urine Glucose (UA) Urine Ketones Urine Blood Urine Nitrite Urine Bilirubin Urine Urobilinogen Ur Leukocyte Esterase Urine WBC (Auto) Urine RBC (Auto) U Hyaline Cast (Auto) U Epithel Cells (Auto) Urine Bacteria (Auto) Nasal Screen MRSA (PCR) Influenza Type A (PCR) Influenza Type B (PCR) Blood Type Blood Type Recheck Antibody Screen Crossmatch 05/30/19 05/30/19 09:43 09:53 WBC 5.42 RBC 3.01 L Hgb 8.5 L POC Hgb Hct 27.5 L POC Hct MCV 91.4 MCH 28.2 MCHC 30.9 L RDW Std Deviation 70.2 H RDW Coeff of Mario 21.0 H Plt Count 146 MPV 9.7 Immature Gran % (Auto) 0.2 Neut % (Auto) 73.0 Lymph % (Auto) 12.0 [place] % (Auto) 10.7 Eos % (Auto) 4.1 Baso % (Auto) 0.0 Immature Gran # (Auto) 0.01 Neut # (Auto) 3.96 Lymph # (Auto) 0.65 L [place] # (Auto) 0.58 Eos # (Auto) 0.22 Baso # (Auto) 0.00 Toxic Vacuolation Platelet Estimate Polychromasia 1+ Anisocytosis Present PT INR APTT PTT Ratio ABG pH ABG pCO2 ABG pO2 ABG HCO3 ABG O2 Saturation ABG Base Excess Alexi Test Barometric Pressure Oxygen Given POC Sodium Sodium POC Potassium Potassium POC Chloride Chloride Carbon Dioxide POC Total CO2 Anion Gap POC Anion Gap POC BUN BUN Creatinine POC Creatinine Est Cr Clr Drug Dosing Est GFR ( Amer) Est GFR (Non-Af Amer) BUN/Creatinine Ratio Glucose POC Glucose POC Glucose (other) Lactate Calcium POC Ioniz Calcium Raf Phosphorus Magnesium Total Bilirubin AST ALT Alkaline Phosphatase Ammonia Troponin I NT-Pro-B Natriuret Pep Total Protein Albumin Globulin Albumin/Globulin Ratio Folate Procalcitonin TSH 7.290 H Specimen Hemolysis Urine Color Urine Appearance Urine pH Ur Specific [place] Urine Protein Urine Glucose (UA) Urine Ketones Urine Blood Urine Nitrite Urine Bilirubin Urine Urobilinogen Ur Leukocyte Esterase Urine WBC (Auto) Urine RBC (Auto) U Hyaline Cast (Auto) U Epithel Cells (Auto) Urine Bacteria (Auto) Nasal Screen MRSA (PCR) Influenza Type A (PCR) Influenza Type B (PCR) Blood Type Blood Type Recheck Antibody Screen Crossmatch Diagnostic Findings CXR:1. Increase in right basilar opacity which may reflect pneumonia or atelectasis. 2. Small right pleural effusion. 3. Moderate cardiomegaly without evidence for pulmonary edema. Chest CT:1. Moderate right and small left pleural effusions with associated atelectasis. 2. Exam compromised by motion artifact but no consolidation to suggest pneumonia. 3. Moderate cardiomegaly. 4. Anasarca. 5. Severe T12 compression fracture, likely old, with 6 mm of retropulsion which results in mild to moderate central canal narrowing. CT Abdomen/Pelvis: 1. No acute process within the abdomen or pelvis although evaluation compromised given motion artifact and lack of contrast. 2. Anasarca. No retroperitoneal hematoma. 3. No bowel obstruction. Colonic diverticulosis without evidence for acute diverticulitis. 4. Moderate right and small left pleural effusions. 5. Severe T12 compression fracture and moderate L3 compression fracture which are probably old. Bilateral Venous Dopplers: No DVT within the right or left lower extremity. XR RLE: No evidence of fracture. Medications Administered Current Medications Albuterol (Ventolin Hfa) 2 puffs INH 0800,1200,1600,2000 [facility] Stop: 06/28/19 19:59 Last Admin: 05/30/19 09:43 Dose: Not Given Documented by: Apixaban (Eliquis) 5 mg PO BID [facility] Stop: 06/28/19 20:59 Last Admin: 05/29/19 20:51 Dose: 5 mg Documented by: Cefepime HCl 1,000 mg/ Syringe 11.3 mls @ 5.5 mls/min IV DAILY@1600 MAURISIO; Pr otocol Stop: 06/05/19 15:59 Furosemide 20 mg/ Syringe 2 mls @ 4 mls/min IV BID [facility] Stop: 06/28/19 22:59 Last Admin: 05/30/19 03:37 Dose: Not Given Documented by: Lactated Ringer's (Lr) 1,000 mls @ 80 mls/hr IV .[id number] [facility] Stop: 05/31/19 09:14 Last Infusion: 05/30/19 10:55 Dose: 80 mls/hr Documented by: Folic Acid 1 mg/ Syringe 10 mls @ 5 mls/min IV QAM [facility] Stop: 06/29/19 08:59 Last Admin: 05/30/19 11:30 Dose: 5 mls/min Documented by: Potassium Chloride (K Jun / Wtr) 10 meq in 100 mls @ 100 mls/hr IV DAILY [facility] Stop: 06/02/19 09:59 Last Infusion: 05/30/19 10:42 Dose: Infused Documented by: Thiamine HCl 100 mg/ Syringe 10 mls @ 2 mls/min IV QAM [facility] Stop: 06/29/19 08:59 Last Admin: 05/30/19 11:30 Dose: 2 mls/min Documented by: Neomycin/Polymyxin/Bacitracin (Neosporin Oint) 1 appln TOP DAILY@1300 MAURISIO Stop: 06/29/19 12:59 Last Admin: 05/30/19 11:32 Dose: 1 appln Documented by: Resident Activity Tracking Resident Involvement: Resident Care Provided Care Provided: Adult Hospital Medicine (1) Atrial fibrillation Atrial fibrillation type: unspecified Qualified Code(s): I48.91 - Unspecified atrial fibrillation (2) Sepsis Sepsis acute organ dysfunction status: unspecified Sepsis type: sepsis due to unspecified organism Qualified Code(s): A41.9 - Sepsis, unspecified organism (3) Hypotension Hypotension type: unspecified hypotension type Qualified Code(s): I95.9 - Hypotension, unspecified
[2019-05-30] MEDS: POTASSIUM CHLORIDE / WTR 10 MEQ/100 ML PLCT IV SCH (09:42)
[2019-05-30] MEDS: ALBUTEROL HFA 8 GM INHALER INH SCH ×4 (09:43→20:43)
--- NOTE | 2019-05-30 09:58 | Cardiology Consultation ---
Date of Consultation May 30, 2019 Assessment & Plan (1) Atrial fibrillation: (2) Anemia: (3) Sepsis: (4) Elevated troponin: ASSESSMENT/PLAN: 1. Elevated troponin: She did not present with acute coronary syndrome. She has had minimally elevated troponins intermittently during other hospitalizations as well. Do not recommend invasive cardiac measures at this time. There is no indication for urgent cardiac catheterization and given her significant drop in hemoglobin over the past several days, confusion, and other comorbidities, recommend conservative management. Anti-platelet therapy/anticoagulation is currently contraindicated as there is concern for bleed. She presented with sepsis according to primary service. Limited echo has been completed and will be reviewed. 2. Anemia: As per primary service. Hemoglobin was 14 earlier this month and now as low as 8.2. Anemia evaluation recommended. Concern for bleed. Hold anticoagulation therapy. 3. Atrial fibrillation: Heart rate adequately controlled. Her rate controlling medications have been discontinued by primary service as there was concern for sepsis with hypotension. She required IV fluid boluses according H&P. She is still mildly hypotensive. If her heart rate becomes significantly elevated, can use intravenous medications if blood pressure can tolerate. Could also use digoxin if necessary but would resume oral outpatient medications when able. Anticoagulation therapy for stroke risk reduction is currently on hold for concern of bleed with significant drop in hemoglobin. 4. Sepsis: As per primary service. On antibiotic therapy. 5. Disposition: Patient care discussed with her son Nghia, and also Dr. Nesbitt of the primary hospitalist service. Cardiology will sign off at this time. Please call with any other questions or concerns. Thank you for allowing me to participate in the care of your patient. Please call for any other questions or concerns. Sincerely, Savage Marcos M.D. History of Present Illness Reason for Consultation: Elevated troponin Requesting Physician: Dr. Gilbert Attending Physician: Suleiman Nesbitt DO History of Present Illness Mrs. Bradley is a 73-year-old female with a history significant for permanent atrial fibrillation, hypertension, alcohol abuse, tobacco abuse, and nonsustained atrial tachycardia. She is a poor historian. She has had the following studies/procedures: 1. Echo 04/06/2018: Normal LV size, wall motion, systolic function. EF 65-70%. Mild to moderate LVH. Type 1 diastolic dysfunction. Mild MR. RVSP 37. 2. Holter 06/01/2018: Sinus rhythm with average heart rate 85 bpm, 63-127 bpm. Occasional PACs and PVCs. One ventricular triplet. Nonsustained atrial tachycardia up to 14 beats. No diary. 3. Echo 05/03/2019: Low-normal LV systolic function. EF 45-50%. No regional wall motion abnormalities reported. Moderate MR. No history was able to be obtained by the patient. When asked questions, she only mumbled with no discernible words. Her son, Nghia, was contacted via telephone. She has been more confused recently. He states that this happened before when clonazepam was discontinued. She was on benzodiazepines due to her alcohol abuse. She has not consumed alcohol since June of 2018. Clonazepam was once again discontinued approximately 1 week ago. Upon admission, there was also concern for sepsis/pneumonia/UTI. She is on antibiotics. Troponin was evaluated and slightly elevated. It was also slightly elevated on prior hospitalizations intermittently. There has not been any reported chest discomfort but once again she is a poor historian. She does not appear to be short of breath while laying nearly flat in bed. Her son, Nghia, acknowledges that her nutrition has not been good. Her hemoglobin has also significantly declined within the past week from 14 to a low of 8.2 during this hospitalization. Review of systems: As above. Review of systems otherwise unobtainable due to patient's mental status. Social history: She was a chronic smoker but states that she quit smoking (2018). She is an alcoholic but has been sober since June 2018. She had admitted in the past to consuming large amounts of alcohol. In the past she has admitted to consuming up to a "handle" of vodka per week. She is a since 2014. She has 1 son, Nghia. Her [id number] is a nurse. No grandchildren. She was alone in her hospital room. Family history: No known premature CAD. Allergies Allergy/AdvReac Type Severity Reaction Status Date / Time Penicillins Allergy Unknown CAN'T Verified 05/29/19 12:27 REMEMBER Macrolide Antibiotics Allergy Unknown Verified 05/29/19 12:27 MYCIN FAM[employer] DRUGS Allergy Unknown CAN'T Uncoded 05/29/19 12:27 REMEMBER-SEE COMMENT Home Medications Home Medications Medication Instructions Recorded Confirmed Type Eliquis 5 mg PO BID #60 tab 05/07/19 05/29/19 Rx acetaminophen [Tylenol Extra 500 mg PO TID PRN #30 tab 05/07/19 05/29/19 Rx Strength] biotin 1,000 mcg PO QAM #30 tab 05/07/19 05/29/19 Rx folic acid 1 mg PO QAM #30 tab 05/07/19 05/29/19 Rx metoprolol succinate 100 mg PO BID #60 tab 05/07/19 05/29/19 Rx sertraline 25 mg PO QAM #30 tab 05/07/19 05/29/19 Rx sertraline 50 mg PO QAM #30 tab 05/07/19 05/29/19 Rx albuterol sulfate [Ventolin HFA] 2 puff INHALATION Q4 05/21/19 05/29/19 History levofloxacin 750 mg PO Q48H 7 Days #3 tab 05/25/19 05/29/19 Rx quetiapine [Seroquel] 100 mg PO HS 05/25/19 05/29/19 History sennosides-docusate sodium 1 tab PO DAILY PRN 05/25/19 05/29/19 History [Senna-S] diltiazem HCl 180 mg PO QAM 05/29/19 05/29/19 History docusate sodium 100 mg PO QAM 05/29/19 05/29/19 History magnesium oxide [MagOx] 400 mg PO QAM 05/29/19 05/29/19 History hodaucje-rcnedyiolNl-jfjzlxsfL 1 applic TOPICAL DAILY@1300 05/29/19 05/29/19 History [Triple Antibiotic] thiamine HCl (vitamin B1) [Vitamin 100 mg PO QAM 05/29/19 05/29/19 History B-1] Patient History Medical History Atrial fibrillation (Inactive) Chronic alcohol abuse Depression Hx of falling Hypertension (Chronic) Insomnia Pneumonia (Resolved) Tobacco abuse Surgical History H/O: hysterectomy H/O: hysterectomy Family History Mother , age 70 of uncertain causes No problems noted. Father , The mid-60s of a rare bone cancer No problems noted. 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 Feels Safe at Home: Yes Smoking Status: Former smoker Tobacco Type: cigarettes ; Cigarettes Per Day: Half a pack per day ; Second Hand Exposure: No ; Hx Alcohol Use: No Hx Substance Use: No Physical Exam Physical Exam: Gen.: No acute distress. Alert. HEENT: Anicteric sclera. Neck: No JVD. No bruits. Normal carotid upstrokes bilaterally. Cardiac: PMI was nonpalpable . No ventricular heave. Irregularly irregular. Heart rate normal. Normal S1-S2. No murmurs, rubs, or gallops. Pulmonary: Clear to auscultation bilaterally without wheezes, rales, or rhonchi. Abdomen: Soft, nontender, nondistended, with normoactive bowel sounds. No bruits noted. Extremities: 2+ radial pulses bilaterally. 2+ posterior tibialis pulses bilaterally. 1+ right lower extremity edema. Trace left lower extremity edema. No cyanosis. Several ecchymotic areas noted in her upper extremities. Psychiatric: Affect appears appropriate. Results & Data Vital Signs (Past 12 Hours) Vital Signs Temp Pulse Pulse Resp BP Pulse Ox 05/30/19 07:46 36.5 C 18 92/64 L 05/30/19 06:21 86 05/30/19 04:17 36.6 C 75 20 98/59 L 95 05/30/19 00:42 97 H 05/29/19 23:27 36.3 C L 62 18 106/64 93 Laboratory Results Laboratory Results - last 24 hr 05/29/19 05/29/19 05/29/19 12:04 12:39 12:39 WBC 6.69 RBC 3.14 L Hgb 9.0 L POC Hgb Hct 28.4 L POC Hct MCV 90.4 MCH 28.7 MCHC 31.7 L RDW Std Deviation 69.5 H RDW Coeff of Mario 21.2 H Plt Count 136 MPV 10.2 Immature Gran % (Auto) 0.1 Neut % (Auto) 77.7 Lymph % (Auto) 12.4 Giles % (Auto) 7.9 Eos % (Auto) 1.8 Baso % (Auto) 0.1 Immature Gran # (Auto) 0.01 Neut # (Auto) 5.19 Lymph # (Auto) 0.83 L Giles # (Auto) 0.53 Eos # (Auto) 0.12 Baso # (Auto) 0.01 Toxic Vacuolation Platelet Estimate Polychromasia Anisocytosis Present PT 18.2 H INR 1.9 H APTT 50.0 H* PTT Ratio 1.8 ABG pH ABG pCO2 ABG pO2 ABG HCO3 ABG O2 Saturation ABG Base Excess Alexi Test Barometric Pressure Oxygen Given POC Sodium Sodium POC Potassium Potassium POC Chloride Chloride Carbon Dioxide POC Total CO2 Anion Gap POC Anion Gap POC BUN BUN Creatinine POC Creatinine Est Cr Clr Drug Dosing Est GFR ( Amer) Est GFR (Non-Af Amer) BUN/Creatinine Ratio Glucose POC Glucose 45 L* POC Glucose (other) Lactate Calcium POC Ioniz Calcium Raf Phosphorus Magnesium Total Bilirubin AST ALT Alkaline Phosphatase Ammonia Troponin I NT-Pro-B Natriuret Pep Total Protein Albumin Globulin Albumin/Globulin Ratio Folate Procalcitonin Specimen Hemolysis Urine Color Urine Appearance Urine pH Ur Specific Grayson Urine Protein Urine Glucose (UA) Urine Ketones Urine Blood Urine Nitrite Urine Bilirubin Urine Urobilinogen Ur Leukocyte Esterase Urine WBC (Auto) Urine RBC (Auto) U Hyaline Cast (Auto) U Epithel Cells (Auto) Urine Bacteria (Auto) Nasal Screen MRSA (PCR) Influenza Type A (PCR) Influenza Type B (PCR) Blood Type Blood Type Recheck Antibody Screen Crossmatch 05/29/19 05/29/19 05/29/19 12:39 12:39 12:50 WBC RBC Hgb POC Hgb Hct POC Hct MCV MCH MCHC RDW Std Deviation RDW Coeff of Mario Plt Count MPV Immature Gran % (Auto) Neut % (Auto) Lymph % (Auto) Giles % (Auto) Eos % (Auto) Baso % (Auto) Immature Gran # (Auto) Neut # (Auto) Lymph # (Auto) Giles # (Auto) Eos # (Auto) Baso # (Auto) Toxic Vacuolation Platelet Estimate Polychromasia Anisocytosis PT INR APTT PTT Ratio ABG pH ABG pCO2 ABG pO2 ABG HCO3 ABG O2 Saturation ABG Base Excess Alexi Test Barometric Pressure Oxygen Given POC Sodium Sodium 138 POC Potassium Potassium 3.9 POC Chloride Chloride 104 Carbon Dioxide 22 POC Total CO2 Anion Gap 12.0 H POC Anion Gap POC BUN BUN 24 H Creatinine 1.65 H POC Creatinine Est Cr Clr Drug Dosing 28.2 Est GFR ( Amer) 35.8 Est GFR (Non-Af Amer) 30.9 BUN/Creatinine Ratio 14.7 Glucose 227 H POC Glucose 58 L* POC Glucose (other) Lactate 1.6 Calcium 7.9 L POC Ioniz Calcium Raf Phosphorus 3.7 Magnesium 1.5 L Total Bilirubin 1.0 AST 20 ALT 13 Alkaline Phosphatase 46 Ammonia Troponin I 0.241 H* NT-Pro-B Natriuret Pep Total Protein 4.5 L Albumin 2.3 L Globulin 2.2 L Albumin/Globulin Ratio 1.1 Folate Procalcitonin Specimen Hemolysis Urine Color Urine Appearance Urine pH Ur Specific Grayson Urine Protein Urine Glucose (UA) Urine Ketones Urine Blood Urine Nitrite Urine Bilirubin Urine Urobilinogen Ur Leukocyte Esterase Urine WBC (Auto) Urine RBC (Auto) U Hyaline Cast (Auto) U Epithel Cells (Auto) Urine Bacteria (Auto) Nasal Screen MRSA (PCR) Influenza Type A (PCR) Influenza Type B (PCR) Blood Type Blood Type Recheck Antibody Screen Crossmatch 05/29/19 05/29/19 05/29/19 12:52 12:56 13:09 WBC RBC Hgb POC Hgb Hct POC Hct MCV MCH MCHC RDW Std Deviation RDW Coeff of Mario Plt Count MPV Immature Gran % (Auto) Neut % (Auto) Lymph % (Auto) Giles % (Auto) Eos % (Auto) Baso % (Auto) Immature Gran # (Auto) Neut # (Auto) Lymph # (Auto) Giles # (Auto) Eos # (Auto) Baso # (Auto) Toxic Vacuolation Platelet Estimate Polychromasia Anisocytosis PT INR APTT PTT Ratio ABG pH 7.48 H ABG pCO2 31 L ABG pO2 75 L ABG HCO3 22 ABG O2 Saturation 95.2 H ABG Base Excess -1.0 Alexi Test Pos Barometric Pressure 733.3 Oxygen Given ROOM AIR POC Sodium Sodium POC Potassium Potassium POC Chloride Chloride Carbon Dioxide POC Total CO2 Anion Gap POC Anion Gap POC BUN BUN Creatinine POC Creatinine Est Cr Clr Drug Dosing Est GFR ( Amer) Est GFR (Non-Af Amer) BUN/Creatinine Ratio Glucose POC Glucose 36 L* POC Glucose (other) Lactate Calcium POC Ioniz Calcium Raf Phosphorus Magnesium Total Bilirubin AST ALT Alkaline Phosphatase Ammonia Troponin I NT-Pro-B Natriuret Pep Total Protein Albumin Globulin Albumin/Globulin Ratio Folate Procalcitonin Specimen Hemolysis Urine Color Urine Appearance Urine pH Ur Specific Grayson Urine Protein Urine Glucose (UA) Urine Ketones Urine Blood Urine Nitrite Urine Bilirubin Urine Urobilinogen Ur Leukocyte Esterase Urine WBC (Auto) Urine RBC (Auto) U Hyaline Cast (Auto) U Epithel Cells (Auto) Urine Bacteria (Auto) Nasal Screen MRSA (PCR) Influenza Type A (PCR) Influenza Type B (PCR) Blood Type A Positive Blood Type Recheck Antibody Screen NEGATIVE Crossmatch See Detail 05/29/19 05/29/19 05/29/19 13:11 13:36 13:55 WBC RBC Hgb POC Hgb 9.2 L Hct POC Hct 27 L MCV MCH MCHC RDW Std Deviation RDW Coeff of Mario Plt Count MPV Immature Gran % (Auto) Neut % (Auto) Lymph % (Auto) Giles % (Auto) Eos % (Auto) Baso % (Auto) Immature Gran # (Auto) Neut # (Auto) Lymph # (Auto) Giles # (Auto) Eos # (Auto) Baso # (Auto) Toxic Vacuolation Platelet Estimate Polychromasia Anisocytosis PT INR APTT PTT Ratio ABG pH ABG pCO2 ABG pO2 ABG HCO3 ABG O2 Saturation ABG Base Excess Alexi Test Barometric Pressure Oxygen Given POC Sodium 137 Sodium POC Potassium 3.7 Potassium POC Chloride 97 L Chloride Carbon Dioxide POC Total CO2 27 Anion Gap POC Anion Gap 18.0 POC BUN 27 H BUN Creatinine POC Creatinine 1.6 H Est Cr Clr Drug Dosing Est GFR ( Amer) Est GFR (Non-Af Amer) BUN/Creatinine Ratio Glucose POC Glucose 70 POC Glucose (other) 296 H Lactate Calcium POC Ioniz Calcium Raf 1.13 Phosphorus Magnesium Total Bilirubin AST ALT Alkaline Phosphatase Ammonia Troponin I NT-Pro-B Natriuret Pep Total Protein Albumin Globulin Albumin/Globulin Ratio Folate Procalcitonin Specimen Hemolysis Urine Color Urine Appearance Urine pH Ur Specific Grayson Urine Protein Urine Glucose (UA) Urine Ketones Urine Blood Urine Nitrite Urine Bilirubin Urine Urobilinogen Ur Leukocyte Esterase Urine WBC (Auto) Urine RBC (Auto) U Hyaline Cast (Auto) U Epithel Cells (Auto) Urine Bacteria (Auto) Nasal Screen MRSA (PCR) Influenza Type A (PCR) Neg for Influ A Influenza Type B (PCR) Neg for Influ B Blood Type Blood Type Recheck Antibody Screen Crossmatch 05/29/19 05/29/19 05/29/19 14:29 14:31 20:13 WBC RBC Hgb POC Hgb Hct POC Hct MCV MCH MCHC RDW Std Deviation RDW Coeff of Mario Plt Count MPV Immature Gran % (Auto) Neut % (Auto) Lymph % (Auto) Giles % (Auto) Eos % (Auto) Baso % (Auto) Immature Gran # (Auto) Neut # (Auto) Lymph # (Auto) Giles # (Auto) Eos # (Auto) Baso # (Auto) Toxic Vacuolation Platelet Estimate Polychromasia Anisocytosis PT 16.2 H INR 1.6 H APTT 48.2 H* PTT Ratio 1.8 ABG pH ABG pCO2 ABG pO2 ABG HCO3 ABG O2 Saturation ABG Base Excess Alexi Test Barometric Pressure Oxygen Given POC Sodium Sodium POC Potassium Potassium POC Chloride Chloride Carbon Dioxide POC Total CO2 Anion Gap POC Anion Gap POC BUN BUN Creatinine POC Creatinine Est Cr Clr Drug Dosing Est GFR ( Amer) Est GFR (Non-Af Amer) BUN/Creatinine Ratio Glucose POC Glucose 185 H POC Glucose (other) Lactate Calcium POC Ioniz Calcium Raf Phosphorus Magnesium Total Bilirubin AST ALT Alkaline Phosphatase Ammonia Troponin I NT-Pro-B Natriuret Pep Total Protein Albumin Globulin Albumin/Globulin Ratio Folate Procalcitonin Specimen Hemolysis Urine Color Dark Yellow Urine Appearance Clear Urine pH 5.0 Ur Specific Grayson 1.023 Urine Protein Negative Urine Glucose (UA) 1+ H Urine Ketones Trace H Urine Blood Negative Urine Nitrite Positive A Urine Bilirubin Negative Urine Urobilinogen Negative Ur Leukocyte Esterase Trace H Urine WBC (Auto) 1-5 Urine RBC (Auto) 0-4 U Hyaline Cast (Auto) >30 H U Epithel Cells (Auto) 5-10 H Urine Bacteria (Auto) Negative Nasal Screen MRSA (PCR) Influenza Type A (PCR) Influenza Type B (PCR) Blood Type Blood Type Recheck Antibody Screen Crossmatch 05/29/19 05/29/19 05/29/19 20:13 22:19 23:33 WBC RBC Hgb POC Hgb Hct POC Hct MCV MCH MCHC RDW Std Deviation RDW Coeff of Mario Plt Count MPV Immature Gran % (Auto) Neut % (Auto) Lymph % (Auto) Giles % (Auto) Eos % (Auto) Baso % (Auto) Immature Gran # (Auto) Neut # (Auto) Lymph # (Auto) Giles # (Auto) Eos # (Auto) Baso # (Auto) Toxic Vacuolation Platelet Estimate Polychromasia Anisocytosis PT INR APTT PTT Ratio ABG pH ABG pCO2 ABG pO2 ABG HCO3 ABG O2 Saturation ABG Base Excess Alexi Test Barometric Pressure Oxygen Given POC Sodium Sodium POC Potassium Potassium POC Chloride Chloride Carbon Dioxide POC Total CO2 Anion Gap POC Anion Gap POC BUN BUN Creatinine POC Creatinine Est Cr Clr Drug Dosing Est GFR ( Amer) Est GFR (Non-Af Amer) BUN/Creatinine Ratio Glucose POC Glucose POC Glucose (other) Lactate Calcium POC Ioniz Calcium Raf Phosphorus Magnesium Total Bilirubin AST ALT Alkaline Phosphatase Ammonia Cancelled Troponin I 0.609 H* NT-Pro-B Natriuret Pep Total Protein Albumin Globulin Albumin/Globulin Ratio Folate Procalcitonin Specimen Hemolysis Urine Color Urine Appearance Urine pH Ur Specific Grayson Urine Protein Urine Glucose (UA) Urine Ketones Urine Blood Urine Nitrite Urine Bilirubin Urine Urobilinogen Ur Leukocyte Esterase Urine WBC (Auto) Urine RBC (Auto) U Hyaline Cast (Auto) U Epithel Cells (Auto) Urine Bacteria (Auto) Nasal Screen MRSA (PCR) Negative Influenza Type A (PCR) Influenza Type B (PCR) Blood Type Blood Type Recheck Antibody Screen Crossmatch 05/29/19 05/29/19 05/29/19 23:33 23:33 23:33 WBC RBC Hgb POC Hgb Hct POC Hct MCV MCH MCHC RDW Std Deviation RDW Coeff of Mario Plt Count MPV Immature Gran % (Auto) Neut % (Auto) Lymph % (Auto) Giles % (Auto) Eos % (Auto) Baso % (Auto) Immature Gran # (Auto) Neut # (Auto) Lymph # (Auto) Giles # (Auto) Eos # (Auto) Baso # (Auto) Toxic Vacuolation Platelet Estimate Polychromasia Anisocytosis PT INR APTT PTT Ratio ABG pH ABG pCO2 ABG pO2 ABG HCO3 ABG O2 Saturation ABG Base Excess Alexi Test Barometric Pressure Oxygen Given POC Sodium Sodium POC Potassium Potassium POC Chloride Chloride Carbon Dioxide POC Total CO2 Anion Gap POC Anion Gap POC BUN BUN Creatinine POC Creatinine Est Cr Clr Drug Dosing Est GFR ( Amer) Est GFR (Non-Af Amer) BUN/Creatinine Ratio Glucose POC Glucose POC Glucose (other) Lactate 4.1 H* Calcium POC Ioniz Calcium Raf Phosphorus Magnesium 1.8 Total Bilirubin AST ALT Alkaline Phosphatase Ammonia Troponin I NT-Pro-B Natriuret Pep 05446 H Total Protein Albumin Globulin Albumin/Globulin Ratio Folate Procalcitonin Specimen Hemolysis Urine Color Urine Appearance Urine pH Ur Specific Grayson Urine Protein Urine Glucose (UA) Urine Ketones Urine Blood Urine Nitrite Urine Bilirubin Urine Urobilinogen Ur Leukocyte Esterase Urine WBC (Auto) Urine RBC (Auto) U Hyaline Cast (Auto) U Epithel Cells (Auto) Urine Bacteria (Auto) Nasal Screen MRSA (PCR) Influenza Type A (PCR) Influenza Type B (PCR) Blood Type Cancelled Blood Type Recheck Antibody Screen Cancelled Crossmatch See Detail 05/29/19 05/29/19 05/29/19 23:33 23:34 23:34 WBC 5.90 RBC 2.81 L Hgb 8.2 L POC Hgb Hct 25.7 L POC Hct MCV 91.5 MCH 29.2 MCHC 31.9 L RDW Std Deviation 71.1 H RDW Coeff of Mario 21.3 H Plt Count 112 L MPV 10.4 Immature Gran % (Auto) Neut % (Auto) Lymph % (Auto) Giles % (Auto) Eos % (Auto) Baso % (Auto) Immature Gran # (Auto) Neut # (Auto) Lymph # (Auto) Giles # (Auto) Eos # (Auto) Baso # (Auto) Toxic Vacuolation Platelet Estimate Decreased L Polychromasia Anisocytosis PT INR APTT PTT Ratio ABG pH ABG pCO2 ABG pO2 ABG HCO3 ABG O2 Saturation ABG Base Excess Alexi Test Barometric Pressure Oxygen Given POC Sodium Sodium POC Potassium Potassium POC Chloride Chloride Carbon Dioxide POC Total CO2 Anion Gap POC Anion Gap POC BUN BUN Creatinine POC Creatinine Est Cr Clr Drug Dosing Est GFR ( Amer) Est GFR (Non-Af Amer) BUN/Creatinine Ratio Glucose POC Glucose POC Glucose (other) Lactate Calcium POC Ioniz Calcium Raf Phosphorus Magnesium Total Bilirubin AST ALT Alkaline Phosphatase Ammonia Troponin I NT-Pro-B Natriuret Pep Total Protein Albumin Globulin Albumin/Globulin Ratio Folate Procalcitonin 0.18 Specimen Hemolysis Urine Color Urine Appearance Urine pH Ur Specific Grayson Urine Protein Urine Glucose (UA) Urine Ketones Urine Blood Urine Nitrite Urine Bilirubin Urine Urobilinogen Ur Leukocyte Esterase Urine WBC (Auto) Urine RBC (Auto) U Hyaline Cast (Auto) U Epithel Cells (Auto) Urine Bacteria (Auto) Nasal Screen MRSA (PCR) Influenza Type A (PCR) Influenza Type B (PCR) Blood Type Blood Type Recheck A Positive Antibody Screen Crossmatch 05/30/19 05/30/19 05/30/19 01:34 01:34 01:34 WBC RBC Hgb POC Hgb Hct POC Hct MCV MCH MCHC RDW Std Deviation RDW Coeff of Mario Plt Count MPV Immature Gran % (Auto) Neut % (Auto) Lymph % (Auto) Giles % (Auto) Eos % (Auto) Baso % (Auto) Immature Gran # (Auto) Neut # (Auto) Lymph # (Auto) Giles # (Auto) Eos # (Auto) Baso # (Auto) Toxic Vacuolation Platelet Estimate Polychromasia Anisocytosis PT 16.7 H INR 1.7 H APTT 48.3 H* PTT Ratio 1.8 ABG pH ABG pCO2 ABG pO2 ABG HCO3 ABG O2 Saturation ABG Base Excess Alexi Test Barometric Pressure Oxygen Given POC Sodium Sodium 140 POC Potassium Potassium 3.8 POC Chloride Chloride 108 H Carbon Dioxide 28 POC Total CO2 Anion Gap 4.0 POC Anion Gap POC BUN BUN 24 H Creatinine 1.61 H POC Creatinine Est Cr Clr Drug Dosing 29.4 Est GFR ( Amer) 36.9 Est GFR (Non-Af Amer) 31.8 BUN/Creatinine Ratio 14.8 Glucose 103 H POC Glucose POC Glucose (other) Lactate Calcium 7.8 L POC Ioniz Calcium Raf Phosphorus Magnesium Total Bilirubin 0.9 AST 31 ALT 18 Alkaline Phosphatase 48 Ammonia 19.0 Troponin I 0.449 H* NT-Pro-B Natriuret Pep Total Protein 4.6 L Albumin 2.3 L Globulin 2.3 L Albumin/Globulin Ratio 1.0 Folate Procalcitonin Specimen Hemolysis Urine Color Urine Appearance Urine pH Ur Specific Grayson Urine Protein Urine Glucose (UA) Urine Ketones Urine Blood Urine Nitrite Urine Bilirubin Urine Urobilinogen Ur Leukocyte Esterase Urine WBC (Auto) Urine RBC (Auto) U Hyaline Cast (Auto) U Epithel Cells (Auto) Urine Bacteria (Auto) Nasal Screen MRSA (PCR) Influenza Type A (PCR) Influenza Type B (PCR) Blood Type Blood Type Recheck Antibody Screen Crossmatch 05/30/19 05/30/19 05/30/19 01:34 01:34 08:37 WBC 5.24 RBC 2.93 L Hgb 8.5 L POC Hgb Hct 26.7 L POC Hct MCV 91.1 MCH 29.0 MCHC 31.8 L RDW Std Deviation 69.9 H RDW Coeff of Mario 21.1 H Plt Count 131 MPV 9.8 Immature Gran % (Auto) 0.2 Neut % (Auto) 73.9 Lymph % (Auto) 14.5 Giles % (Auto) 8.0 Eos % (Auto) 3.2 Baso % (Auto) 0.2 Immature Gran # (Auto) 0.01 Neut # (Auto) 3.87 Lymph # (Auto) 0.76 L Giles # (Auto) 0.42 Eos # (Auto) 0.17 Baso # (Auto) 0.01 Toxic Vacuolation 1+ Platelet Estimate Polychromasia 1+ Anisocytosis Present PT INR APTT PTT Ratio ABG pH ABG pCO2 ABG pO2 ABG HCO3 ABG O2 Saturation ABG Base Excess Alexi Test Barometric Pressure Oxygen Given POC Sodium Sodium POC Potassium Potassium POC Chloride Chloride Carbon Dioxide POC Total CO2 Anion Gap POC Anion Gap POC BUN BUN Creatinine POC Creatinine Est Cr Clr Drug Dosing Est GFR ( Amer) Est GFR (Non-Af Amer) BUN/Creatinine Ratio Glucose POC Glucose POC Glucose (other) Lactate 1.2 Calcium POC Ioniz Calcium Raf Phosphorus Magnesium Total Bilirubin AST ALT Alkaline Phosphatase Ammonia Troponin I NT-Pro-B Natriuret Pep Total Protein Albumin Globulin Albumin/Globulin Ratio Folate > 24.00 Procalcitonin Specimen Hemolysis Urine Color Urine Appearance Urine pH Ur Specific Grayson Urine Protein Urine Glucose (UA) Urine Ketones Urine Blood Urine Nitrite Urine Bilirubin Urine Urobilinogen Ur Leukocyte Esterase Urine WBC (Auto) Urine RBC (Auto) U Hyaline Cast (Auto) U Epithel Cells (Auto) Urine Bacteria (Auto) Nasal Screen MRSA (PCR) Influenza Type A (PCR) Influenza Type B (PCR) Blood Type Blood Type Recheck Antibody Screen Crossmatch Diagnostic Findings Telemetry personally reviewed: Atrial fibrillation with adequate rate control. ECG personally reviewed: ECG 05/30/2019 at 6:21 a.m.: AFib 92 bpm. Artifact. PVC versus aberrantly conducted complex. Inferolateral T-wave inversion. Echocardiogram report reviewed as noted above. Lower extremity Doppler 05/29/2019: No DVT bilateral lower extremities. CT chest 05/29/2019: Moderate right and small left pleural effusions. NSR cup. Severe T12 compression fracture, likely old per Radiology. Medications Administered Current Inpatient Medications Albuterol (Ventolin Hfa) 2 puffs INH 0800,1200,1600,2000 [facility] Stop: 06/28/19 19:59 Last Admin: 05/30/19 09:43 Dose: Not Given Documented by: Apixaban (Eliquis) 5 mg PO BID [facility] Stop: 06/28/19 20:59 Last Admin: 05/29/19 20:51 Dose: 5 mg Documented by: Cefepime HCl 1,000 mg/ Syringe 11.3 mls @ 5.5 mls/min IV DAILY@1600 [facility]; Protocol Stop: 06/05/19 15:59 Lorazepam (Ativan) 1 mg in 2 mls @ 2 mls/min IV ONE PRN; Protocol PRN Reason: EtoH Withdrawal AWSS 6-10 Stop: 06/28/19 19:45 Last Admin: 05/29/19 22:10 Dose: 2 mls/min Documented by: Vancomycin HCl 1,000 mg/ (Sodium Chloride) 270 mls @ 125 mls/hr IV Q30H [facility] Stop: 05/31/19 15:59 Furosemide 20 mg/ Syringe 2 mls @ 4 mls/min IV BID [facility] Stop: 06/28/19 22:59 Last Admin: 05/30/19 03:37 Dose: Not Given Documented by: Sodium Chloride (Nss) 250 mls @ 15 mls/hr IV .[id number] PRN PRN Reason: For Transfusion Stop: 05/30/19 10:05 Lactated Ringer's (Lr) 1,000 mls @ 80 mls/hr IV .[id number] [facility] Stop: 05/31/19 09:14 Last Infusion: 05/30/19 09:48 Dose: 0 mls/hr Documented by: Folic Acid 1 mg/ Syringe 10 mls @ 5 mls/min IV QAM [facility] Stop: 06/29/19 08:59 Potassium Chloride (K Jun / Wtr) 10 meq in 100 mls @ 100 mls/hr IV DAILY [facility] Stop: 06/02/19 09:59 Last Admin: 05/30/19 09:42 Dose: 100 mls/hr Documented by: Thiamine HCl 100 mg/ Syringe 10 mls @ 2 mls/min IV QAM [facility] Stop: 06/29/19 08:59 Miscellaneous Information (Consult) 1 ea N/A UD PRN PRN Reason: Consult Stop: 06/28/19 15:20 Neomycin/Polymyxin/Bacitracin (Neosporin Oint) 1 appln TOP DAILY@1300 [facility] Stop: 06/29/19 12:59 PG Care Time/CCT Total # of Minutes Spent Total Time Spent with Patient: Total time spent is greater than 50% in coordination of care (as documented) at patient's floor/unit and/or counseling patient: (1) Anemia Anemia type: unspecified type Qualified Code(s): D64.9 - Anemia, unspecified (2) Sepsis Sepsis acute organ dysfunction status: unspecified Sepsis type: sepsis due to unspecified organism Qualified Code(s): A41.9 - Sepsis, unspecified organism
[2019-05-30 10:11] LABS: Eosinophils # (auto) 0.22 K/uL (0-0.5); Eosinophils % (auto) 4.1 %; Hematocrit (blood only) 27.5 % (37-47); Hemoglobin 8.5 g/dL (12.0-16.0); Immature Granulocytes # (auto) 0.01 K/uL (0.00-0.02); Immature Granulocytes % (auto) 0.2 %; Lymphocytes # (auto) 0.65 K/uL (1.2-3.4); Mean Corpuscular Hemoglobin 28.2 pg (25-34); Mean Corpuscular Hgb Conc 30.9 g/dL (32-36); Mean Corpuscular Volume 91.4 fL (80-100); Mean Platelet Volume 9.7 fL (7.4-10.4); Monocytes # (auto) 0.58 K/uL (0.11-0.59); Monocytes % (auto) 10.7 %; Neutrophils # (auto) 3.96 K/uL (1.4-6.5); Platelet Count 146 K/uL (130-400); RDW Standard Deviation 70.2 fL (36.4-46.3); Red Blood Count 3.01 M/uL (4.2-5.4); White Blood Count 5.42 K/uL (4.8-10.8)
[2019-05-30 10:38] LABS: Anisocytosis Present; Polychromasia 1+
[2019-05-30] MEDS: FOLIC ACID 1 MG in SYRINGE 9.8 ML IV SCH (11:30)
[2019-05-30] MEDS: THIAMINE HCL 100 MG in SYRINGE 9 ML IV SCH (11:30)
[2019-05-30] MEDS: NEOMYCIN/POLYMYX/BACITR OINT 15 GM TUBE TOP SCH (11:32)
[2019-05-30] MEDS ORDERED: VANCOMYCIN HCL 1,000 MG in SODIUM CHLORIDE 0.9% 250 ML IV SCH (12:00)
[2019-05-30] MEDS: METOPROLOL SUCC 50MG EXT REL TAB PO SCH (14:49)
[2019-05-30] MEDS ORDERED: CEFEPIME 1,000 MG in SYRINGE 0 ML IV SCH (16:00)
[2019-05-30 17:16] LABS: Mean Corpuscular Hgb Conc 31.5 g/dL (32-36); Platelet Count 153 K/uL (130-400)
[2019-05-30] MEDS: MAGNESIUM SULFATE / D5W 1 GM/100 ML BAG IV SCH (17:25)
[2019-05-30 17:45] LABS: Hematocrit (blood only) 27.3 % (37-47); Hemoglobin 8.6 g/dL (12.0-16.0); Mean Corpuscular Hemoglobin 28.1 pg (25-34); Mean Corpuscular Volume 89.2 fL (80-100); RDW Coefficient of Variation 21.2 % (11.5-14.5); RDW Standard Deviation 68.4 fL (36.4-46.3); Red Blood Count 3.06 M/uL (4.2-5.4); White Blood Count 6.84 K/uL (4.8-10.8)
[2019-05-30 17:49] LABS: Anisocytosis Present; Basophils # (auto) 0.07 K/uL (0-0.2); Echinocytes 1+; Eosinophils # (auto) 0.25 K/uL (0-0.5); Eosinophils % (auto) 3.7 %; Immature Granulocytes % (auto) 1.5 %; Lymphocytes # (auto) 1.16 K/uL (1.2-3.4); Monocytes # (auto) 0.71 K/uL (0.11-0.59); Monocytes % (auto) 10.4 %; Neutrophils # (auto) 4.55 K/uL (1.4-6.5); Neutrophils % (auto) 66.4 %; Ovalocytes 1+
--- NOTE | 2019-05-30 18:49 | Billing Data ---
Date of Service May 30, 2019 Coding Level of Care Code 24089 Subseq Hosp Care Lvl 3
--- NOTE | 2019-05-30 23:19 | Electrocardiogram Report ---
Test Reason : Blood Pressure : / mmHG Vent. Rate : 092 BPM Atrial Rate : 000 BPM P-R Int : 000 ms QRS Dur : 092 ms QT Int : 372 ms P-R-T Axes : 000 080 228 degrees QTc Int : 460 ms Atrial fibrillation with premature ventricular or aberrantly conducted complexes Cannot rule out Anterior infarct , age undetermined Abnormal ECG When compared with ECG of 29-MAY-2019 12:14, T wave inversion no longer evident in Anterior leads Confirmed by Ricky Marcos ([id number]) on 05/30/2019 11:19:27 PM Referred By: Nathan Mancini [place] Confirmed By:Ricky Marcos
[2019-05-31 06:19] LABS: Basophils # (auto) 0.02 K/uL (0-0.2); Basophils % (auto) 0.4 %; Eosinophils # (auto) 0.25 K/uL (0-0.5); Eosinophils % (auto) 4.9 %; Hematocrit (blood only) 29.9 % (37-47); Hemoglobin 9.2 g/dL (12.0-16.0); Immature Granulocytes # (auto) 0.02 K/uL (0.00-0.02); Immature Granulocytes % (auto) 0.4 %; Lymphocytes # (auto) 0.85 K/uL (1.2-3.4); Lymphocytes % (auto) 16.5 %; Mean Corpuscular Hemoglobin 28.5 pg (25-34); Mean Corpuscular Hgb Conc 30.8 g/dL (32-36); Mean Corpuscular Volume 92.6 fL (80-100); Mean Platelet Volume 9.7 fL (7.4-10.4); Monocytes # (auto) 0.46 K/uL (0.11-0.59); Monocytes % (auto) 8.9 %; Neutrophils # (auto) 3.55 K/uL (1.4-6.5); Neutrophils % (auto) 68.9 %; Platelet Count 185 K/uL (130-400); RDW Coefficient of Variation 21.3 % (11.5-14.5); RDW Standard Deviation 71.4 fL (36.4-46.3); Red Blood Count 3.23 M/uL (4.2-5.4); White Blood Count 5.15 K/uL (4.8-10.8)
[2019-05-31 06:32] LABS: Partial Thromboplastin Ratio 1.6; Partial Thromboplastin Time 44.4 Seconds (21.0-31.0)
[2019-05-31 06:40] LABS: Anisocytosis Present
[2019-05-31 06:52] LABS: BUN Creatinine Ratio 18.5 (10-20); Calcium 8.5 mg/dl (8.5-10.1); Est GFR (African American) 57.2; Est GFR (Non-African American) 49.4; Potassium 3.7 mmol/L (3.5-5.1)
[2019-05-31] MEDS: FOLIC ACID 1 MG in SYRINGE 9.8 ML IV SCH (08:00)
[2019-05-31] MEDS: ALBUTEROL HFA 8 GM INHALER INH SCH ×4 (08:00→20:17)
[2019-05-31] MEDS: MAGNESIUM SULFATE / D5W 1 GM/100 ML BAG IV SCH (08:00)
[2019-05-31] MEDS: THIAMINE HCL 100 MG in SYRINGE 9 ML IV SCH (08:01)
[2019-05-31] MEDS: NEOMYCIN/POLYMYX/BACITR OINT 15 GM TUBE TOP SCH (08:01)
[2019-05-31] MEDS: POTASSIUM CHLORIDE / WTR 10 MEQ/100 ML PLCT IV SCH (08:02)
[2019-05-31] MEDS ORDERED: ACETAMINOPHEN 1,000 MG/100 ML VIAL IV ONE (08:45)
[2019-05-31] MEDS ORDERED: CEFEPIME 2,000 MG in SYRINGE 7.5 ML IV SCH (09:00)
--- NOTE | 2019-05-31 09:37 | Hospitalist Progress Note ---
Date of Service May 31, 2019 Assessment & Plan (1) Acute blood loss anemia: 73 yo F with PMHx AFib on recent AC with Eliqius, hypertension, syncope, alcohol abuse with alcoholic dementia, elevated troponin, depression admitted for concern for acute blood loss anemia. Acute blood loss anemia: - Pt's Hgb has dropped from 13.5 -> 8.5 in the course of one week. Hgb stable today at 9.2. - Was recently started on Eliqius last admission for AFib anticoagulation. - No evidence of bleeding on CT Abdomen/Pelvis, no otis blood in stools reported. Hemoccult pending. - Likely this blood loss is due to the large hematoma on pt's right posterior thigh. However examination on palpation of thigh is benign and not concerning for compartment syndrome or arterial bleed. - Continue to monitor for tachycardia, CBC qAM. - Blood consent available if necessary. - PT/OT evaluations placed. ? Sepsis: - While pt's lactate was elevated on admission to 4.1, her clinical picture is less likely to be sepsis as pt's imaging does not suggest pneumonia, UA positive for nitrites but no increase in urination, no hematuria, and pt is back to baseline mental status. - Lactate now normal. Procal continues to be normal; have d/c'ed Abx given her symptoms are likely due to blood loss. - UCx sent but not before antibiotics were started, so unlikely to be clinically helpful. BCx x2 pending drawn pre-Abx; Wound culture of toe pending. - LR d/c'ed as pt can tolerate PO nutrition now. JESS on CKD stage III: - Pt's baseline Cr ~1.3, now with Cr 1.12. - Expect kidney injury due to hypovolemia from blood loss as resolved. - PO fluids, daily BMP. Anasarca with pleural effusions and decreased albumin: - Pt with anasarca on CT, signs of fluid overload with bilateral pleural effusions (mild-moderate). - No diuretics due to JESS, acute blood loss. - Continue to monitor. Atrial fibrillation: - Recently placed on Eliqius for anticoagulation. Held this admission in the setting of acute blood loss. - Rate controlled with PO diltiazem and metoprolol in the outpatient setting. Given pt can tolerate PO now have restarted metoprolol at 25mg PO BID and will monitor HR and titrate up and eventually reintroduce diltiazem as tolerated. Alcoholic dementia with ? AMS: - Per prior notes pt becomes more altered, disoriented, agitated with benzodiazepines. Will hold all benzos this admission given her adverse reaction to them. - CT Head shows no acute intracranial abnormalities. - Continue thiamine, folic acid, biotin PO. - Continue magnesium PO. Atelectasis vs. pulmonary infiltrate: - Pt without increased oxygen demand, increased work of breathing, shortness of breath. Tachypnea quickly resolved in ED with volume (3L IV fluid). - CXR showed possible consolidation, however CT chest showed atelectasis. Elevated troponin: - Pt has a history of elevated troponin previously due to demand on kidneys with CKD. - Acute blood loss likely playing a role in heart stress. - Cardiology saw and appreciate input: limited Echo performed. No catheterization intervention recommended. Compression fracture: - Appears old on imaging. - No intervention at this time. Depression: - At home takes sertraline, quetiapine. - Will resume today as now can tolerate PO intake. Code Status: FULL CODE; will discuss with pt's next of kin FEN/GI: Heart Healthy diet DVT ppx: pt with acute blood loss anemia, ppx contraindicated Dispo: med/surg with telemetry (2) Sepsis: (3) Hematoma: (4) Abnormal finding on urinalysis: (5) Atelectasis: (6) Elevated troponin: (7) Acute kidney injury: (8) Hypomagnesemia: (9) Alcoholic dementia: (10) Mitral regurgitation: (11) Hypotension: (12) Atrial fibrillation: (13) CKD (chronic kidney disease) stage 3, GFR 30-59 ml/min: (14) Hx of falling: (15) History of compression fracture of spine: (16) Pleural effusion: (17) Anasarca: (18) Hypoalbuminemia: Supervising Physician Co-Signing Physician Notes I personally examined the patient and verified all lucio points of history and exam, discussed case, and agree with decision making with Dr Parks. Awake and alert now. Endorses leg pain. Endorses having falls. Relates that her plan is to get to rehab to get stronger. acute blood loss anemia - no s/s overt GI bleeding, no retroperitoneal bleed on CT, leg bruising does look big enough and extensive enough to account for the blood loss - probably bleeding/bruising from fall and anticoagulation. stopped anticoagulant. Hemoglobin has stabilized. No indication for transfusion. afib - rate controlled, since blood pressure has started to rise, resume rate controlling medsalbeit at lower doses cautiously and titrate back to home dosing as tolerated. Obviously anticoagulation on hold at this time. concern on sepsis -no overt infections - urine (+) on UA but no other evidence of infection. No white count, no fever, persistently reassuring pro calcitonin. Stop antibiotics and follow. Culture from foot is more than likely colonization, given that she does not show overt cellulitis. otherwise as above, dispositionPT/OT eval and treat, patient's stated goal is to go to rehab to try to get stronger. She does appear medically stable for this once it can be arranged/pending PT and OT evaluations. Subjective Pt with some posterior leg pain overnight; much more alert today and conversationally demented. No shortness of breath, no urinary symptoms, only complaint is that the back of her right leg hurts and she reports "I have fallen a number of times recently. Sometimes I use a walker but not often". No dizziness or headache. Review of Systems Constitutional: no fever, no chills and no malaise Respiratory: no cough and no dyspnea Cardiovascular: no chest pain, no palpitations and no edema Gastrointestinal: no abdominal pain, no constipation and no diarrhea/loose stools Genitourinary: no dysuria and no hematuria Musculoskeletal: right leg pain Physical Exam Constitutional: well developed and + ill appearing Respiratory: normal respiratory effort, lungs clear to auscultation Cardiovascular: Rate/Rhythm: regular rate Heart Sounds: no murmur irregularly irregular rhythm Gastrointestinal (Abdomen): normal bowel sounds, soft, nontender, no hepatosplenomegaly Musculoskeletal: mild tenderness to palpation posterior right thigh Skin: Several ecchymoses over bilateral UE. LLE without ecchymoses. Posterior thigh with large area of dark purple ecchymosis from groin to posterior knee. Covers entirety of posterior right thigh. Limb is soft, no areas of tightness or warmth. Psychiatric: Orientation: + not alert and + not oriented x 3 Results & Data Vital Signs (Past 12 Hours) Vital Signs Temp Pulse Pulse Resp BP BP Pulse Ox 05/31/19 08:00 36.7 C 79 18 135/83 96 05/31/19 07:30 96 H 05/31/19 04:14 100 H 05/31/19 04:00 36.5 C 92 H 19 125/84 95 05/30/19 23:45 36.4 C L 68 18 127/72 96 Laboratory Results Laboratory Results - last 24 hr 05/30/19 05/31/19 05/31/19 17:03 05:44 05:44 WBC 6.84 RBC 3.06 L Hgb 8.6 L Hct 27.3 L MCV 89.2 MCH 28.1 MCHC 31.5 L RDW Std Deviation 68.4 H RDW Coeff of Mario 21.2 H Plt Count 153 MPV 10.0 Immature Gran % (Auto) 1.5 Neut % (Auto) 66.4 Lymph % (Auto) 17.0 [place] % (Auto) 10.4 Eos % (Auto) 3.7 Baso % (Auto) 1.0 Immature Gran # (Auto) 0.10 H Neut # (Auto) 4.55 Lymph # (Auto) 1.16 L [place] # (Auto) 0.71 H Eos # (Auto) 0.25 Baso # (Auto) 0.07 Anisocytosis Present Ovalocytes 1+ Echinocytes 1+ APTT 44.4 H PTT Ratio 1.6 Sodium 142 Potassium 3.7 Chloride 109 H Carbon Dioxide 24 Anion Gap 9.0 BUN 21 H Creatinine 1.12 D Est Cr Clr Drug Dosing 42.0 Est GFR ( Amer) 57.2 Est GFR (Non-Af Amer) 49.4 BUN/Creatinine Ratio 18.5 Glucose 77 Calcium 8.5 Procalcitonin Stool Occult Bld Scrn 05/31/19 05/31/19 05/31/19 05:44 05:44 10:38 WBC 5.15 RBC 3.23 L Hgb 9.2 L Hct 29.9 L MCV 92.6 MCH 28.5 MCHC 30.8 L RDW Std Deviation 71.4 H RDW Coeff of Mario 21.3 H Plt Count 185 MPV 9.7 Immature Gran % (Auto) 0.4 Neut % (Auto) 68.9 Lymph % (Auto) 16.5 [place] % (Auto) 8.9 Eos % (Auto) 4.9 Baso % (Auto) 0.4 Immature Gran # (Auto) 0.02 Neut # (Auto) 3.55 Lymph # (Auto) 0.85 L [place] # (Auto) 0.46 Eos # (Auto) 0.25 Baso # (Auto) 0.02 Anisocytosis Present Ovalocytes Echinocytes APTT PTT Ratio Sodium Potassium Chloride Carbon Dioxide Anion Gap BUN Creatinine Est Cr Clr Drug Dosing Est GFR ( Amer) Est GFR (Non-Af Amer) BUN/Creatinine Ratio Glucose Calcium Procalcitonin 0.10 Stool Occult Bld Scrn Negative Medications Administered Current Medications Acetaminophen (Tylenol) 500 mg PO TID PRN PRN Reason: Pain Stop: 06/30/19 14:22 Albuterol (Ventolin Hfa) 2 puffs INH 0800,1200,1600,2000 [facility] Stop: 06/28/19 19:59 Last Admin: 05/31/19 12:44 Dose: 2 puffs Documented by: Folic Acid (Folvite) 1 mg PO QAM [facility] Stop: 07/01/19 08:59 Furosemide 20 mg/ Syringe 2 mls @ 4 mls/min IV BID [facility] Stop: 06/28/19 22:59 Last Admin: 05/30/19 03:37 Dose: Not Given Documented by: Potassium Chloride (K Jun / Wtr) 10 meq in 100 mls @ 100 mls/hr IV DAILY [facility] Stop: 06/02/19 09:59 Last Infusion: 05/31/19 09:02 Dose: Infused Documented by: Magnesium Oxide (Mag-Ox) 400 mg PO QAM [facility] Stop: 07/01/19 08:59 Metoprolol Tartrate (Lopressor) 25 mg PO BID [facility] Stop: 06/30/19 20:59 Neomycin/Polymyxin/Bacitracin (Neosporin Oint) 1 appln TOP DAILY@1300 [facility] Stop: 06/29/19 12:59 Last Admin: 05/31/19 08:01 Dose: 1 appln Documented by: Quetiapine Fumarate (Seroquel) 100 mg PO HS [facility] Stop: 06/30/19 20:59 Sennosides (Senokot) 8.6 mg PO QAM [facility] Stop: 07/01/19 08:59 Sertraline HCl (Zoloft) 75 mg PO QAM [facility] Stop: 06/30/19 14:44 Thiamine HCl (Vitamin B-1) 100 mg PO QAM [facility] Stop: 07/01/19 08:59 Resident Activity Tracking Resident Involvement: Resident Care Provided Care Provided: Adult Hospital Medicine (1) Atrial fibrillation Atrial fibrillation type: unspecified Qualified Code(s): I48.91 - Unspecified atrial fibrillation (2) Sepsis Sepsis acute organ dysfunction status: unspecified Sepsis type: sepsis due to unspecified organism Qualified Code(s): A41.9 - Sepsis, unspecified organism (3) Hypotension Hypotension type: unspecified hypotension type Qualified Code(s): I95.9 - Hypotension, unspecified
[2019-05-31] MEDS ORDERED: METOPROLOL TARTRATE 25 MG TAB PO STA (13:42)
[2019-05-31] MEDS ORDERED: ACETAMINOPHEN 500 MG TAB PO PRN (14:23)
[2019-05-31] MEDS: SERTRALINE HCL 50 MG TABLET PO SCH (15:29)
--- NOTE | 2019-05-31 16:25 | Billing Data ---
Date of Service May 31, 2019 Coding Level of Care Code 50031 Subseq Hosp Care Lvl 3
[2019-05-31] MEDS ORDERED: ACETAMINOPHEN 1,000 MG/100 ML VIAL IV PRN (16:30)
[2019-05-31] MEDS: QUETIAPINE FUMARATE 100 MG TABLET PO SCH (20:18)
[2019-05-31] MEDS: METOPROLOL TARTRATE 25 MG TAB PO SCH (20:19)
[2019-06-01 08:22] LABS: Basophils # (auto) 0.02 K/uL (0-0.2); Basophils % (auto) 0.4 %; Eosinophils # (auto) 0.21 K/uL (0-0.5); Eosinophils % (auto) 3.7 %; Hematocrit (blood only) 26.8 % (37-47); Hemoglobin 8.6 g/dL (12.0-16.0); Immature Granulocytes # (auto) 0.02 K/uL (0.00-0.02); Immature Granulocytes % (auto) 0.4 %; Lymphocytes # (auto) 0.83 K/uL (1.2-3.4); Lymphocytes % (auto) 14.8 %; Mean Corpuscular Hemoglobin 29.5 pg (25-34); Mean Corpuscular Hgb Conc 32.1 g/dL (32-36); Mean Corpuscular Volume 91.8 fL (80-100); Mean Platelet Volume 9.4 fL (7.4-10.4); Monocytes # (auto) 0.56 K/uL (0.11-0.59); Neutrophils # (auto) 3.97 K/uL (1.4-6.5); Neutrophils % (auto) 70.7 %; Platelet Count 176 K/uL (130-400); RDW Coefficient of Variation 21.4 % (11.5-14.5); RDW Standard Deviation 70.4 fL (36.4-46.3); Red Blood Count 2.92 M/uL (4.2-5.4); White Blood Count 5.61 K/uL (4.8-10.8)
[2019-06-01 08:31] LABS: Partial Thromboplastin Ratio 1.5; Partial Thromboplastin Time 39.6 Seconds (21.0-31.0)
[2019-06-01 08:38] LABS: Anisocytosis Present; Poikilocytosis Present; Toxic Vacuolation 1+
[2019-06-01 08:50] LABS: BUN Creatinine Ratio 16.7 (10-20); Calcium 8.8 mg/dl (8.5-10.1); Creatinine Clr Calc Pharmacy 43.4 ml/min; Est GFR (African American) 60.5; Est GFR (Non-African American) 52.2; Potassium 3.9 mmol/L (3.5-5.1)
[2019-06-01] MEDS: POTASSIUM CHLORIDE / WTR 10 MEQ/100 ML PLCT IV SCH (08:52)
[2019-06-01] MEDS: METOPROLOL TARTRATE 25 MG TAB PO SCH ×2 (08:52→20:59)
[2019-06-01] MEDS: MAGNESIUM OXIDE 400 MG TAB PO SCH (08:53)
[2019-06-01] MEDS: ALBUTEROL HFA 8 GM INHALER INH SCH ×4 (08:53→20:57)
[2019-06-01] MEDS: FOLIC ACID 1 MG TAB PO SCH (08:53)
[2019-06-01] MEDS: SENNA 8.6 MG TAB PO SCH (08:54)
[2019-06-01] MEDS: THIAMINE HCL 100 MG TAB PO SCH (08:54)
[2019-06-01] MEDS: SERTRALINE HCL 50 MG TABLET PO SCH (08:55)
--- NOTE | 2019-06-01 09:51 | Hospitalist Progress Note ---
Date of Service June 01, 2019 Assessment & Plan (1) Acute blood loss anemia: 73 yo F with PMHx AFib on recent AC with Eliqius, hypertension, syncope, alcohol abuse with alcoholic dementia, elevated troponin, depression admitted for concern for acute blood loss anemia. Acute blood loss anemia: stabilized, asymptomatic - Pt's Hgb dropped from 13.5 to 9 abruptly and is now stable between 8.6 and 9.2 - Started on Eliqius last admission for AFib anticoagulation. - No evidence of bleeding on CT Abdomen/Pelvis, no otis blood in stools reported. Hemoccult negative. - Large hematoma on R posterior thigh with multiple additional bruises on forearms bilaterally. No concern for compartment syndrome or arterial bleed at this time. - Continue to monitor for tachycardia, CBC qAM. - Blood consent available if necessary. - PT/OT evaluations placed. Sepsis workup, largely negative - Lactate elevated on admission at 4.1, is now 1.2 Procal 0.10. - blood cutltures negative at 48 hours, urine culture no growth. - antibiotics discontinued 2/2 no source of infection. - wound culture of toe grew staph MRSA sensitive to bactrim. JESS on CKD stage III: - Pt's baseline Cr ~1.3, now with Cr 1.07. - PO fluids, daily BMP. Anasarca with pleural effusions and decreased albumin: - Pt with anasarca on CT, signs of fluid overload with bilateral pleural effusions (mild-moderate). - No diuretics due to JESS, acute blood loss. - Continue to monitor. Atrial fibrillation: - Recently placed on Eliqius for anticoagulation. Held this admission in the setting of acute blood loss. - Rate controlled with PO diltiazem and metoprolol in the outpatient setting. Rate controlled with metoprolol at 25mg PO BID at this time. - PRN 5 mg IV metoprolol for HR > 120 ordered for increasing heart rate. - will restart 180 mg Diltiazem tomorrow morning Alcoholic dementia with AMS: - Per prior notes pt becomes more altered, disoriented, agitated with benzod iazepines. Will hold all benzos this admission given her adverse reaction to them. - CT Head shows no acute intracranial abnormalities. - Continue thiamine, folic acid, biotin PO. - Continue magnesium PO. Atelectasis: - Pt without increased oxygen demand, increased work of breathing, shortness of breath in ED - Tachypnea quickly resolved in ED with volume repletion(3L IV fluid). - Atelectasis on CT; . Elevated troponin: resolved - Pt has a history of elevated troponin previously due to demand on kidneys with CKD. - Acute blood loss likely playing a role in heart stress. - Cardiology saw and appreciate input: limited Echo performed. No catheterization intervention recommended. Compression fracture: - Appears old on imaging. - No intervention at this time. Depression: -home sertraline, quetiapine. Code Status: FULL CODE; will discuss with pt's next of kin FEN/GI: Heart Healthy diet DVT ppx: pt with acute blood loss anemia, ppx contraindicated Dispo: med/surg with telemetry (2) Sepsis: (3) Hematoma: (4) Abnormal finding on urinalysis: (5) Atelectasis: (6) Elevated troponin: (7) Acute kidney injury: (8) Hypomagnesemia: (9) Alcoholic dementia: (10) Mitral regurgitation: (11) Hypotension: (12) Atrial fibrillation: (13) CKD (chronic kidney disease) stage 3, GFR 30-59 ml/min: (14) Hx of falling: (15) History of compression fracture of spine: (16) Pleural effusion: (17) Anasarca: (18) Hypoalbuminemia: Supervising Physician Co-Signing Physician Notes I personally examined the patient and verified all lucio points of history and exam, discussed case, and agree with decision making with Dr Cedeno. Fairly difficult to obtain much of any meaningful HPI or review of systems. On directed questioning she denies any new leg pain noting that it is very bruised but does not seem to be worse. No chest pain no shortness of breath does not feel weak lightheaded or dizzy.. acute blood loss anemia - no s/s overt GI bleeding, no retroperitoneal bleed on CT, leg bruising does look big enough and extensive enough to account for the blood loss - probably bleeding/bruising from fall and anticoagulation. stopped anticoagulant. Continue to follow closelysee below as it relates to her A. f ib, but the concern with her tachycardia given that her blood pressure was a little bit lower was whether or not she may have more volume loss. Her exam appears very stable from even 2 days ago let alone from yesterday, but given the slight change in her hemodynamics we will definitely want to follow this closely. Repeat hemoglobin as well. afib -rate increased some through the dayblood pressure went down a little bit concomitantly, raising concern about volume loss. She did respond to isotonic fluids even in small boluses. That said, given that it was a combination of rising heart rate and lowering blood pressure, repeat hemoglobin pending and follow closely. If her rates are up and blood pressure is good, then definitely would need to manage as simply her baseline A. fib going faster on less than what were her home meds and resume meds slowly accordingly; however, if she has fast heart rate with lower blood pressures we need to look at it as a hemodynamic issue until proven otherwise. concern on sepsis -no overt infections - urine (+) on UA but no other evidence of infection. No white count, no fever, persistently reassuring pro calcitonin. None of this has changed off of anti-biotics, and her lower blood pressure and faster heart rates given all of this reassuring data and no fever are extremely reassuring that there is still no septic process at play otherwise as above, dispositionPT/OT eval and treat, patient's stated goal is to go to rehab to try to get stronger. Subjective Pt pleasantly disoriented in the room this morning. Is aware that she is in a hospital however thought she was in [place]. Easily redirected and seems to follow along with correction of disorientation however I'm unsure that she will retain the corrections given her history of alcoholic encephalopathy. No complaints of pain, SOB, Chest pain, dyspnea, abdominal pain today. Review of Systems Constitutional: no fever, no chills, no body aches and no fatigue Respiratory: no cough and no dyspnea Cardiovascular: no chest pain, no dyspnea and no edema Gastrointestinal: no abdominal pain, no nausea, no vomiting, no constipation and no diarrhea/loose stools Genitourinary: no dysuria Physical Exam Constitutional: cooperative; no acute distress and not ill appearing Neck: normal visual inspection Respiratory: normal respiratory effort and able to speak in complete sentences; no respiratory distress, no labored breathing, no retractions, no cough and no audible wheezes Auscultation: lungs clear to auscultation bilaterally; no crackles, no rales, no rhonchi and no wheezes Cardiovascular: Rate/Rhythm: regular rate and regular rhythm Heart Sounds: normal S1 and normal S2; no gallop, no murmur and no cardiac rub Vessels: posterior tibial pulses present Extremities: + pedal edema; no edema Gastrointestinal (Abdomen): Inspection/Auscultation: abdomen normal to inspection and normal bowel sounds; abdomen not distended Percussion/Palpation: abdomen soft; abdomen nontender, no guarding, abdomen not rigid and no abdominal mass Skin: Large hematoma stretching from hip to knee on posterior right thigh that is tender to touch. Multiple bruises spread out along anterior forearms. Results & Data Vital Signs (Past 12 Hours) Vital Signs Temp Pulse Pulse Resp BP BP Pulse Ox 06/01/19 07:25 36.9 C 84 16 123/81 97 06/01/19 03:52 36.9 C 90 18 115/79 93 06/01/19 00:39 90 05/31/19 23:57 36.7 C 102 H 19 121/72 95 Resident Activity Tracking Resident Involvement: Resident Care Provided Care Provided: Adult Hospital Medicine (1) Atrial fibrillation Atrial fibrillation type: unspecified Qualified Code(s): I48.91 - Unspecified atrial fibrillation (2) Sepsis Sepsis acute organ dysfunction status: unspecified Sepsis type: sepsis due to unspecified organism Qualified Code(s): A41.9 - Sepsis, unspecified organism (3) Hypotension Hypotension type: unspecified hypotension type Qualified Code(s): I95.9 - Hypotension, unspecified
[2019-06-01] MEDS: NEOMYCIN/POLYMYX/BACITR OINT 15 GM TUBE TOP SCH (12:26)
[2019-06-01] MEDS ORDERED: SODIUM CHLORIDE 0.9% 500 ML IV SCH ×2 (13:45→16:15)
--- NOTE | 2019-06-01 19:12 | Billing Data ---
Date of Service June 01, 2019 Coding Level of Care Code 22485 Subseq Hosp Care Lvl 3
[2019-06-01] MEDS: QUETIAPINE FUMARATE 100 MG TABLET PO SCH (20:58)
[2019-06-02] MEDS ORDERED: SODIUM CHLORIDE 0.9% 250 ML IV PRN ×3 (06:42→10:50)
[2019-06-02 07:50] LABS: Basophils # (auto) 0.02 K/uL (0-0.2); Basophils % (auto) 0.3 %; Eosinophils # (auto) 0.22 K/uL (0-0.5); Eosinophils % (auto) 3.6 %; Hematocrit (blood only) 24.6 % (37-47); Hemoglobin 7.8 g/dL (12.0-16.0); Immature Granulocytes # (auto) 0.02 K/uL (0.00-0.02); Immature Granulocytes % (auto) 0.3 %; Lymphocytes # (auto) 1.07 K/uL (1.2-3.4); Lymphocytes % (auto) 17.5 %; Mean Corpuscular Hemoglobin 29.4 pg (25-34); Mean Corpuscular Hgb Conc 31.7 g/dL (32-36); Mean Corpuscular Volume 92.8 fL (80-100); Mean Platelet Volume 9.4 fL (7.4-10.4); Monocytes % (auto) 9.8 %; Neutrophils # (auto) 4.19 K/uL (1.4-6.5); Neutrophils % (auto) 68.5 %; Platelet Count 170 K/uL (130-400); RDW Coefficient of Variation 21.9 % (11.5-14.5); RDW Standard Deviation 71.4 fL (36.4-46.3); Red Blood Count 2.65 M/uL (4.2-5.4); White Blood Count 6.12 K/uL (4.8-10.8)
[2019-06-02] MEDS ORDERED: PHYTONADIONE 5 MG TAB PO ONE (08:24)
[2019-06-02] MEDS: MAGNESIUM OXIDE 400 MG TAB PO SCH (08:25)
[2019-06-02] MEDS: SENNA 8.6 MG TAB PO SCH (08:26)
[2019-06-02] MEDS: SERTRALINE HCL 50 MG TABLET PO SCH (08:26)
[2019-06-02] MEDS: FOLIC ACID 1 MG TAB PO SCH (08:27)
[2019-06-02] MEDS: METOPROLOL TARTRATE 25 MG TAB PO SCH ×2 (08:28→09:07)
[2019-06-02] MEDS: ALBUTEROL HFA 8 GM INHALER INH SCH ×4 (08:28→19:58)
[2019-06-02] MEDS: THIAMINE HCL 100 MG TAB PO SCH (08:29)
[2019-06-02 08:34] LABS: Anisocytosis Present; Ovalocytes 1+; Poikilocytosis Present
[2019-06-02] MEDS: POTASSIUM CHLORIDE / WTR 10 MEQ/100 ML PLCT IV SCH (09:04)
--- NOTE | 2019-06-02 09:35 | Hospitalist Progress Note ---
Date of Service June 02, 2019 Assessment & Plan (1) Acute blood loss anemia: 73 yo F with PMHx AFib on recent AC with Eliqius, hypertension, syncope, alcohol abuse with alcoholic dementia, elevated troponin, depression admitted for concern for acute blood loss anemia. Acute blood loss anemia: s/p 1 u pRBC, 2u FFP transfusion - Pt's Hgb dropped from 13.5 to 9 abruptly was stable. Concern for re-bleeding given soft pressures responsive to 2 500 cc NS boluses yesterday afternoon and drop in Hg to 7.3 last night. Hg 10 from 7.8 after 1 u transfusion. repeat H&H ordered given over-correction compared to blood delivered. - No evidence of bleeding on CT Abdomen/Pelvis, no otis blood in stools reported. Hemoccult negative. - Large hematoma on R posterior thigh with multiple additional bruises on forearms bilaterally. No concern for compartment syndrome or arterial bleed at this time. - transfusing 1 u PRBC this AM as well as 2 u FFP to help clotting factors and plugging of any venous tearing that is likely the source of the bleeding. PT and PTT remain elevated 2/2 alcoholic liver dysfunction. INR to be drawn after RBC transfusion. - PT/OT evaluations placed. Sepsis workup, largely negative - Lactate elevated on admission at 4.1, is now 1.2 Procal 0.10. - blood cultures negative at 48 hours, urine culture no growth. - antibiotics discontinued 2/2 no source of infection. - wound culture of toe grew staph MRSA sensitive to bactrim; isolation precaution as such per hospital policy. JESS on CKD stage III: - Pt's baseline Cr ~1.3, now with Cr 1.07. - PO fluids, daily BMP. Anasarca with pleural effusions and decreased albumin: - Pt with anasarca on CT, signs of fluid overload with bilateral pleural effusions (mild-moderate). - No diuretics due to JESS, acute blood loss. - Continue to monitor. Atrial fibrillation: - Recently placed on Eliqius for anticoagulation. Held this admission in the setting of acute blood loss. - Rate controlled with PO diltiazem and metoprolol in the outpatient setting. Rate controlled with metoprolol at 25mg PO BID at this time. Alcoholic dementia with AMS: - Per prior notes pt becomes more altered, disoriented, agitated with benzodiazepines. Will hold all benzos this admission given her adverse reaction to them. - CT Head shows no acute intracranial abnormalities. - Continue thiamine, folic acid, biotin PO. - Continue magnesium PO. Atelectasis: - Pt without increased oxygen demand, increased work of breathing, shortness of breath in ED - Tachypnea quickly resolved in ED with volume repletion(3L IV fluid). - Atelectasis on CT; . Elevated troponin: resolved - Pt has a history of elevated troponin previously due to demand on kidneys with CKD. - Acute blood loss likely playing a role in heart stress. - Cardiology saw and appreciate input: limited Echo performed. No catheterization intervention recommended. Compression fracture: - Appears old on imaging. - No intervention at this time. Depression: -home sertraline, quetiapine. Code Status: FULL CODE FEN/GI: Heart Healthy diet DVT ppx: pt with acute blood loss anemia, ppx contraindicated Dispo: med/surg with telemetry (2) Sepsis: (3) Hematoma: (4) Abnormal finding on urinalysis: (5) Atelectasis: (6) Elevated troponin: (7) Acute kidney injury: (8) Hypomagnesemia: (9) Alcoholic dementia: (10) Mitral regurgitation: (11) Hypotension: (12) Atrial fibrillation: (13) CKD (chronic kidney disease) stage 3, GFR 30-59 ml/min: (14) Hx of falling: (15) History of compression fracture of spine: (16) Pleural effusion: (17) Anasarca: (18) Hypoalbuminemia: Supervising Physician Co-Signing Physician Notes I personally examined the patient and verified all lucio points of history and exam, discussed case, and agree with decision making with Dr Cedeno. Still fairly difficult to obtain much of any meaningful HPI or review of systems. No chest pain no shortness of breath acute blood loss anemia - no s/s overt GI bleeding, no retroperitoneal bleed on CT, leg bruising does look big enough and extensive enough to account for the blood loss - probably bleeding/bruising from fall and anticoagulation. stopped anticoagulant. appears to have rebled today - given ongoing blood loss and tachycardia - transfuse to stabilize hemodynamics. on revisit leg appeared stable from this morning. FFP to help stop bleeding, vitamin K to hopefully reverse some of coagulopathy (see below). dr cedeno d/w radiology - not really a clear imaging test that would likely help identify source of bleed - so will follow clinically/follow Hgb/follow hemodynamics coagulopathy- cirrhosis > malnutrition - but since she was stable w bleeding for more than a day and then showed bleeding again, in addition to FFP as above hopefully stop the acute bleeding, will give a trial of 10 mg of vitamin K to see if that helps improve her baseline coagulopathy. (While the goal is to be helpful therapeuticallydiagnostically it would also help define her coagulopathy as far as how much is cirrhosis versus malnutrition.) afib -mostly her tachycardia appears to be reflux due to blood loss and her overall situation, but obviously continue to follow and titrate rate control as her rate requires/as her blood pressure allows. Off anticoagulation for the foreseeable future due to the leg bleed, but obviously because of stroke risk if she were in a safe environment where severe falls would not be likely, it could be reasonable to cautiously resume anticoagulation if such circumstances were to exist. concern on sepsis -no overt infections - urine (+) on UA but no other evidence of infection. No white count, no fever, persistently reassuring pro calcitonin. None of this has changed off of anti-biotics, and her lower blood pressure and faster heart rates given all of this reassuring data and no fever are extremely reassuring that there is still no septic process at play otherwise as above, dispositionPT/OT eval and treat, patient's stated goal is to go to rehab to try to get stronger. Subjective Denies any shortness of breath this morning, palpitations, chest pain. Remains pleasantly disoriented. Heart rate overnight remained in Afib fluctuating from 90-105. Review of Systems Constitutional: no fever, no chills, no body aches and no fatigue Respiratory: no cough and no dyspnea Cardiovascular: no chest pain, no dyspnea and no edema Gastrointestinal: no abdominal pain, no nausea, no vomiting, no constipation and no diarrhea/loose stools Genitourinary: no dysuria Physical Exam Constitutional: cooperative; no acute distress and not ill appearing Neck: normal visual inspection Respiratory: normal respiratory effort and able to speak in complete sentences; no respiratory distress, no labored breathing, no retractions, no cough and no audible wheezes Auscultation: lungs clear to auscultation bilaterally; no crackles, no rales, no rhonchi and no wheezes Cardiovascular: Rate/Rhythm: regular rate and regular rhythm Heart Sounds: normal S1 and normal S2; no gallop, no murmur and no cardiac rub Vessels: posterior tibial pulses present Extremities: no pedal edema and no edema Gastrointestinal (Abdomen): Inspection/Auscultation: abdomen normal to inspection and normal bowel sounds; abdomen not distended Percussion/Palpation: abdomen soft; abdomen nontender, no guarding, abdomen not rigid and no abdominal mass Skin: Concern for expanding hematoma on R posterior thigh now spreading down to mid-calf. No bruising on left leg or thigh. Bruising evident on left and right elbow creases and dorsal hands from needle sticks. Results & Data Vital Signs (Past 12 Hours) Vital Signs Temp Pulse Pulse Resp BP BP Pulse Ox 06/02/19 09:05 75 124/83 06/02/19 04:30 36.4 C L 106 H 16 97 06/02/19 01:26 90 06/01/19 22:18 36.6 C 99 H 18 92/62 L 94 06/02/19 06/02/19 06/01/19 Range/Units 08:31 07:27 19:21 WBC 6.12 (4.8-10.8) K/uL RBC 2.65 L (4.2-5.4) M/uL Hgb 7.8 L 7.3 L (12.0-16.0) g/dL Hct 24.6 L (37-47) % MCV 92.8 (80-100) fL MCH 29.4 (25-34) pg MCHC 31.7 L (32-36) g/dL RDW Std Deviation 71.4 H (36.4-46.3) fL RDW Coeff of Mario 21.9 H (11.5-14.5) % Plt Count 170 (130-400) K/uL MPV 9.4 (7.4-10.4) fL Immature Gran % (Auto) 0.3 % Neut % (Auto) 68.5 % Lymph % (Auto) 17.5 % Randolph % (Auto) 9.8 % Eos % (Auto) 3.6 % Baso % (Auto) 0.3 % Immature Gran # (Auto) 0.02 (0.00-0.02) K/uL Neut # (Auto) 4.19 (1.4-6.5) K/uL Lymph # (Auto) 1.07 L (1.2-3.4) K/uL Randolph # (Auto) 0.60 H (0.11-0.59) K/uL Eos # (Auto) 0.22 (0-0.5) K/uL Baso # (Auto) 0.02 (0-0.2) K/uL Poikilocytosis Present Anisocytosis Present Ovalocytes 1+ Blood Type A Positive Antibody Screen NEGATIVE Crossmatch See Detail 05/29/19 Range/Units 12:56 WBC (4.8-10.8) K/uL RBC (4.2-5.4) M/uL Hgb (12.0-16.0) g/dL Hct (37-47) % MCV (80-100) fL MCH (25-34) pg MCHC (32-36) g/dL RDW Std Deviation (36.4-46.3) fL RDW Coeff of Mario (11.5-14.5) % Plt Count (130-400) K/uL MPV (7.4-10.4) fL Immature Gran % (Auto) % Neut % (Auto) % Lymph % (Auto) % Randolph % (Auto) % Eos % (Auto) % Baso % (Auto) % Immature Gran # (Auto) (0.00-0.02) K/uL Neut # (Auto) (1.4-6.5) K/uL Lymph # (Auto) (1.2-3.4) K/uL Randolph # (Auto) (0.11-0.59) K/uL Eos # (Auto) (0-0.5) K/uL Baso # (Auto) (0-0.2) K/uL Poikilocytosis Anisocytosis Ovalocytes Blood Type Antibody Screen Crossmatch See Detail Resident Activity Tracking Resident Involvement: Resident Care Provided Care Provided: Adult Hospital Medicine (1) Atrial fibrillation Atrial fibrillation type: unspecified Qualified Code(s): I48.91 - Unspecified atrial fibrillation (2) Sepsis Sepsis acute organ dysfunction status: unspecified Sepsis type: sepsis due to unspecified organism Qualified Code(s): A41.9 - Sepsis, unspecified organism (3) Hypotension Hypotension type: unspecified hypotension type Qualified Code(s): I95.9 - Hypotension, unspecified
[2019-06-02] MEDS: NEOMYCIN/POLYMYX/BACITR OINT 15 GM TUBE TOP SCH (14:08)
[2019-06-02 14:35] LABS: Basophils # (auto) 0.02 K/uL (0-0.2); Basophils % (auto) 0.3 %; Eosinophils # (auto) 0.21 K/uL (0-0.5); Eosinophils % (auto) 3.1 %; Hematocrit (blood only) 31.2 % (37-47); Immature Granulocytes # (auto) 0.02 K/uL (0.00-0.02); Immature Granulocytes % (auto) 0.3 %; Lymphocytes # (auto) 1.47 K/uL (1.2-3.4); Lymphocytes % (auto) 21.9 %; Mean Corpuscular Hemoglobin 29.1 pg (25-34); Mean Corpuscular Hgb Conc 32.1 g/dL (32-36); Mean Corpuscular Volume 90.7 fL (80-100); Mean Platelet Volume 9.6 fL (7.4-10.4); Monocytes # (auto) 0.73 K/uL (0.11-0.59); Monocytes % (auto) 10.9 %; Neutrophils # (auto) 4.25 K/uL (1.4-6.5); Neutrophils % (auto) 63.5 %; Platelet Count 196 K/uL (130-400); RDW Coefficient of Variation 20.5 % (11.5-14.5); RDW Standard Deviation 63.6 fL (36.4-46.3); Red Blood Count 3.44 M/uL (4.2-5.4)
[2019-06-02 14:48] LABS: INR 1.2 (0.9-1.1); Prothrombin Time 12.1 Seconds (9.0-12.0)
[2019-06-02 14:55] LABS: Anisocytosis Present; Ovalocytes 1+; Poikilocytosis Present
--- NOTE | 2019-06-02 17:32 | Billing Data ---
Date of Service June 02, 2019 Coding Level of Care Code 63286 Subseq Hosp Care Lvl 3
[2019-06-02] MEDS: METOPROLOL TARTRATE 50 MG TAB PO SCH ×2 (18:39→19:57)
[2019-06-02] MEDS: QUETIAPINE FUMARATE 100 MG TABLET PO SCH (19:58)
[2019-06-03 06:31] LABS: INR 1.1 (0.9-1.1); Prothrombin Time 10.8 Seconds (9.0-12.0)
[2019-06-03 07:34] LABS: BUN Creatinine Ratio 16.1 (10-20); Creatinine Clr Calc Pharmacy 45.3 ml/min; Est GFR (African American) 61.9; Est GFR (Non-African American) 53.4
[2019-06-03 07:35] LABS: Basophils # (auto) 0.03 K/uL (0-0.2); Basophils % (auto) 0.4 %; Eosinophils # (auto) 0.27 K/uL (0-0.5); Eosinophils % (auto) 3.4 %; Hematocrit (blood only) 35.1 % (37-47); Hemoglobin 11.3 g/dL (12.0-16.0); Immature Granulocytes # (auto) 0.03 K/uL (0.00-0.02); Immature Granulocytes % (auto) 0.4 %; Lymphocytes # (auto) 1.51 K/uL (1.2-3.4); Mean Corpuscular Hemoglobin 29.7 pg (25-34); Mean Corpuscular Hgb Conc 32.2 g/dL (32-36); Mean Corpuscular Volume 92.1 fL (80-100); Mean Platelet Volume 10.2 fL (7.4-10.4); Monocytes # (auto) 0.72 K/uL (0.11-0.59); Monocytes % (auto) 9.1 %; Neutrophils # (auto) 5.38 K/uL (1.4-6.5); Neutrophils % (auto) 67.7 %; Nucleated RBC # (auto) 0.07 K/uL (0-0); Nucleated RBC % (auto) 0.8 %; Platelet Count 234 K/uL (130-400); RDW Coefficient of Variation 21.9 % (11.5-14.5); RDW Standard Deviation 67.6 fL (36.4-46.3); Red Blood Count 3.81 M/uL (4.2-5.4); White Blood Count 7.94 K/uL (4.8-10.8)
[2019-06-03] MEDS: ALBUTEROL HFA 8 GM INHALER INH SCH ×4 (07:55→20:52)
[2019-06-03] MEDS: SERTRALINE HCL 50 MG TABLET PO SCH (07:56)
[2019-06-03] MEDS: FOLIC ACID 1 MG TAB PO SCH (07:56)
[2019-06-03 07:57] LABS: Anisocytosis Present
[2019-06-03] MEDS: METOPROLOL TARTRATE 50 MG TAB PO SCH ×2 (07:57→20:51)
[2019-06-03] MEDS: MAGNESIUM OXIDE 400 MG TAB PO SCH (07:58)
[2019-06-03] MEDS: SENNA 8.6 MG TAB PO SCH (07:58)
[2019-06-03] MEDS: THIAMINE HCL 100 MG TAB PO SCH (07:59)
[2019-06-03] MEDS: NEOMYCIN/POLYMYX/BACITR OINT 15 GM TUBE TOP SCH (12:19)
--- NOTE | 2019-06-03 17:46 | Hospitalist Progress Note ---
Date of Service June 03, 2019 Assessment & Plan (1) Acute blood loss anemia: 73 yo F with PMHx alcohol related dementia and liver dysfunction and A-fib on Eliquis admitted on 05/29/19 with concern for sepsis, work-up largely negative; now with concern for acute blood loss anemia. Acute blood loss anemia secondary to thigh hematoma due to fall - Source of bleed likely large hematoma on R posterior thigh with multiple additional bruises on forearms bilaterally, likely subsequent to a fall. No evidence of retroperitoneal bleeding on CT Abdomen/Pelvis, no otis blood in stools reported. Hemoccult negative. - Pt's Hgb dropped > 4 pts in one week. s/p 1 u pRBC, 2u FFP transfusion - hgb at 11.2 today; SOB appears to be related to anxiety rather than from anemia Sepsis ruled out - Work up negative - wound culture of toe grew staph MRSA sensitive to bactrim; topical antibiotic ointment ordered - isolation precaution as such per hospital policy. JESS on CKD stage III: resolved - creatinine at 1.05 today, returned to baseline - PO fluids, daily BMP. Anasarca with pleural effusions and decreased albumin: - Pt with anasarca on CT with bilateral pleural effusions (mild-moderate). signs of fluid overload on exam - albumin low at 2.3 - possibly from poor oral intake. follow. Atrial fibrillation: - Recently placed on Eliqius for anticoagulation. Held this admission in the setting of acute blood loss. - HAS BLED score 4, placing her at 8.9% risk of major bleed per 100-patient years; weigh risks/benefits of restarting anticoagulation for stroke protection vs. fall risk and subsequent bleed. - Rate controlled with metoprolol at 25mg PO BID Tachycardia - HRs in low 100s throughout day - unlikely to be related to infection (see negative sepsis work up above); possibly due anemia (high output state), although hgb improved to 11.3 today. Afib is also a possible etiology: will add back home dose diltiazem 180mg -continue to monitor Alcoholic dementia with AMS: - CT Head shows no acute intracranial abnormalities. - Per prior notes pt becomes more altered, disoriented, agitated with benzodiaze pines. Will continue to hold all benzos this admission given her adverse reaction to them. Hydroxyzine ordered prn for agitation - Continue thiamine, folic acid, biotin PO. - Continue magnesium PO. Elevated troponin: resolved - Pt has a history of elevated troponin previously due to demand on kidneys with CKD. - Cardiology saw and appreciate input: limited Echo performed. No catheterization intervention recommended. Compression fracture: - Appears old on imaging. - No intervention at this time. - consider DEXA scan as outpatient Depression: -home sertraline, quetiapine. - QTc 460ms on EKG Code Status: FULL CODE FEN/GI: Heart Healthy diet DVT ppx: pt with acute blood loss anemia, ppx contraindicated Dispo: med/surg with telemetry; likely go to [facility] for acute rehab pending authorization (2) Sepsis: (3) Hematoma: (4) Abnormal finding on urinalysis: (5) Atelectasis: (6) Elevated troponin: (7) Acute kidney injury: (8) Hypomagnesemia: (9) Alcoholic dementia: (10) Mitral regurgitation: (11) Hypotension: (12) Atrial fibrillation: (13) CKD (chronic kidney disease) stage 3, GFR 30-59 ml/min: (14) Hx of falling: (15) History of compression fracture of spine: (16) Pleural effusion: (17) Anasarca: (18) Hypoalbuminemia: Supervising Physician Co-Signing Physician Notes Resident Physician Supervision Note: I independently interviewed and examined the patient and verified the lucio history and physical, reviewed labs and image studies, discussed the case with the resident Dr. Peterson and agree with the findings and care plan. Subjective Given Visterril overnight for anxiety. Reports feeling SOB and anxious - she says she feels like she is having a panic attack Review of Systems Respiratory: + dyspnea Psychiatric: + anxiety Physical Exam Constitutional: WD/WN, vitals as above Eyes: PERRL, conjunctivae normal, anicteric sclerae ENMT: external ear and nose normal, oropharynx normal Neck: normal visual inspection and trachea midline Respiratory: normal respiratory effort, lungs clear to auscultation normal respiratory effort; no respiratory distress and no cough Auscultation: no crackles, no rales, no rhonchi, no wheezes and no pleural rub Cardiovascular: Rate/Rhythm: regular rate and + irregularly irregular Heart Sounds: normal S1 and normal S2; no click, no gallop, no murmur and no cardiac rub Gastrointestinal (Abdomen): normal bowel sounds, soft, nontender, no hepatosplenomegaly Skin: Trauma: + contusion (present on B/l upper extremities) and + hematoma (R posterior thigh) Psychiatric: A+Ox3, euthymic affect Genitourinary: Mora catheter in place draining ankit colored urine without visible clots Results & Data Vital Signs (Past 12 Hours) Vital Signs Temp Pulse Resp BP Pulse Ox 06/03/19 12:15 37.1 C 111 H 20 139/86 96 06/03/19 08:38 36.8 C 102 H 19 115/88 97 Resident Activity Tracking Resident Involvement: Resident Care Provided Care Provided: Adult Hospital Medicine (1) Atrial fibrillation Atrial fibrillation type: unspecified Qualified Code(s): I48.91 - Unspecified atrial fibrillation (2) Sepsis Sepsis acute organ dysfunction status: unspecified Sepsis type: sepsis due to unspecified organism Qualified Code(s): A41.9 - Sepsis, unspecified organism (3) Hypotension Hypotension type: unspecified hypotension type Qualified Code(s): I95.9 - Hypotension, unspecified
[2019-06-03] MEDS: QUETIAPINE FUMARATE 100 MG TABLET PO SCH (20:52)
[2019-06-04 07:59] LABS: Hematocrit (blood only) 31.9 % (37-47); Hemoglobin 10.2 g/dL (12.0-16.0)
[2019-06-04] MEDS: ALBUTEROL HFA 8 GM INHALER INH SCH ×4 (09:07→20:10)
[2019-06-04] MEDS: METOPROLOL TARTRATE 50 MG TAB PO SCH ×2 (09:09→20:10)
[2019-06-04] MEDS: THIAMINE HCL 100 MG TAB PO SCH (09:10)
[2019-06-04] MEDS: SERTRALINE HCL 50 MG TABLET PO SCH (09:10)
[2019-06-04] MEDS: MAGNESIUM OXIDE 400 MG TAB PO SCH (09:11)
[2019-06-04] MEDS: FOLIC ACID 1 MG TAB PO SCH (09:11)
[2019-06-04] MEDS: SENNA 8.6 MG TAB PO SCH (10:27)
[2019-06-04] MEDS: NEOMYCIN/POLYMYX/BACITR OINT 15 GM TUBE TOP SCH (13:34)
--- NOTE | 2019-06-04 14:01 | Hospitalist Progress Note ---
Date of Service June 04, 2019 Assessment & Plan (1) Acute blood loss anemia: 73 yo F with PMHx alcohol related dementia and liver dysfunction and A- fib on Eliquis admitted on 05/29/19 with concern for sepsis, work-up largely negative; now with concern for acute blood loss anemia. Acute blood loss anemia secondary to R thigh hematoma - Source of bleed likely large hematoma on R posterior thigh with multiple additional bruises on forearms bilaterally. It is unclear given history as to whether this bleed was spontaneous or provoked by a fall. Patient cannot provide clear history (has alcohol related dementia). No evidence of retroperitoneal bleeding on CT Abdomen/Pelvis, no otis blood in stools reported. Hemoccult negative. - Pt's Hgb dropped > 4 pts in one week. s/p 1 u pRBC, 2u FFP transfusion - hgb at 10.8 today, down from 11.2 on 06/03. Suspicion for rebleed is low as exam and vitals are stable; change in hgb within expected range of error Sepsis ruled out - Work up negative - wound culture of toe grew staph MRSA sensitive to bactrim; topical antibiotic ointment ordered - isolation precaution as such per hospital policy. JESS on CKD stage III: resolved - creatinine at 1.05 06/03, returned to baseline - PO fluids, daily BMP. Anasarca with pleural effusions and decreased albumin: - Pt with anasarca on CT with bilateral pleural effusions (mild-moderate). signs of fluid overload on exam - albumin low at 2.3 - possibly from poor oral intake. follow. Atrial fibrillation: - Recently placed on Eliqius for anticoagulation. Held thus far during admission in the setting of acute blood loss. - HAS BLED score 4, placing her at 8.9% risk of major bleed per 100-patient years; weigh risks/benefits of restarting anticoagulation for stroke protection vs. fall risk and subsequent bleed. After careful consideration, we will restart patient on Eliquis today for continued stroke protection. She will be going to acute rehab upon discharge, where fall precautions will be taken - Rate controlled with metoprolol at 25mg PO BID and diltiazem 180mg qAM. Alcoholic dementia with AMS: - CT Head shows no acute intracranial abnormalities. - Per prior notes pt becomes more altered, disoriented, agitated with benzodiazepines. Will continue to hold all benzos this admission given her adverse reaction to them. Hydroxyzine ordered prn for agitation - Continue thiamine, folic acid, biotin PO. - Continue magnesium PO. Elevated troponin: resolved - Pt has a history of elevated troponin previously due to demand on kidneys with CKD. No concern of ACS - Cardiology saw and appreciate input: limited Echo performed. Compression fracture: - Appears old on imaging. - No intervention at this time. - consider DEXA scan as outpatient Depression: -home sertraline, quetiapine. - QTc 460ms on EKG Code Status: FULL CODE FEN/GI: Heart Healthy diet DVT ppx: pt with acute blood loss anemia, ppx contraindicated Dispo: med/surg with telemetry; likely go to [facility] for acute rehab pending authorization (2) Sepsis: (3) Hematoma: (4) Abnormal finding on urinalysis: (5) Atelectasis: (6) Elevated troponin: (7) Acute kidney injury: (8) Hypomagnesemia: (9) Alcoholic dementia: (10) Mitral regurgitation: (11) Hypotension: (12) Atrial fibrillation: (13) CKD (chronic kidney disease) stage 3, GFR 30-59 ml/min: (14) Hx of falling: (15) History of compression fracture of spine: (16) Pleural effusion: (17) Anasarca: (18) Hypoalbuminemia: Supervising Physician Co-Signing Physician Notes Resident Physician Supervision Note: I independently interviewed and examined the patient and verified the lucio history and physical, reviewed labs and image studies, discussed the case with the resident Dr. Peterson and agree with the findings and care plan. Subjective No acute events overnight. Eating and drinking well. No SOB today. Denies being in any discomfort. When asked about the cause of her R posterior thigh hematoma, Mrs. Bradley is unable to definitively state whether or not she fell. She describes feelings of having fallen out of bed at night in her personal fdc, although she is told by aids that she never fell. She is wondering if she is having dreams of falling out of bed Review of Systems Review of Systems: All systems reviewed & are unremarkable except as noted in HPI & below Physical Exam Constitutional: WD/WN, vitals as above Eyes: PERRL, conjunctivae normal, anicteric sclerae ENMT: external ear and nose normal, oropharynx normal Neck: normal visual inspection and trachea midline Respiratory: normal respiratory effort, lungs clear to auscultation normal respiratory effort; no respiratory distress and no cough Auscultation: no crackles, no rales, no rhonchi, no wheezes and no pleural rub Cardiovascular: Rate/Rhythm: regular rate and + irregularly irregular Heart Sounds: normal S1 and normal S2; no click, no gallop, no murmur and no cardiac rub Gastrointestinal (Abdomen): normal bowel sounds, soft, nontender, no hepatosplenomegaly Skin: Trauma: + contusion (present on B/l upper extremities) and + hematoma (R posterior thigh) Psychiatric: A+Ox3, euthymic affect Results & Data Vital Signs (Past 12 Hours) Vital Signs Temp Pulse Resp BP Pulse Ox 06/04/19 11:26 36.6 C 84 16 125/84 97 06/04/19 07:43 36.6 C 97 H 16 130/91 06/04/19 04:06 37.1 C 77 20 117/73 94 Resident Activity Tracking Resident Involvement: Resident Care Provided Care Provided: Adult Hospital Medicine (1) Atrial fibrillation Atrial fibrillation type: unspecified Qualified Code(s): I48.91 - Unspecified atrial fibrillation (2) Sepsis Sepsis acute organ dysfunction status: unspecified Sepsis type: sepsis due to unspecified organism Qualified Code(s): A41.9 - Sepsis, unspecified organism (3) Hypotension Hypotension type: unspecified hypotension type Qualified Code(s): I95.9 - Hypotension, unspecified
[2019-06-04] MEDS: APIXABAN 5 MG TABLET PO SCH (20:09)
[2019-06-04] MEDS: QUETIAPINE FUMARATE 100 MG TABLET PO SCH (20:10)
[2019-06-05 07:47] LABS: Hematocrit (blood only) 34.6 % (37-47)
[2019-06-05] MEDS: ALBUTEROL HFA 8 GM INHALER INH SCH ×4 (09:06→20:26)
[2019-06-05] MEDS: SERTRALINE HCL 50 MG TABLET PO SCH (09:07)
[2019-06-05] MEDS: FOLIC ACID 1 MG TAB PO SCH (09:07)
[2019-06-05] MEDS: MAGNESIUM OXIDE 400 MG TAB PO SCH (09:07)
[2019-06-05] MEDS: SENNA 8.6 MG TAB PO SCH (09:07)
[2019-06-05] MEDS: THIAMINE HCL 100 MG TAB PO SCH (09:08)
[2019-06-05] MEDS: APIXABAN 5 MG TABLET PO SCH ×2 (09:09→20:26)
[2019-06-05] MEDS: METOPROLOL TARTRATE 50 MG TAB PO SCH ×2 (09:09→20:26)
[2019-06-05] MEDS: NEOMYCIN/POLYMYX/BACITR OINT 15 GM TUBE TOP SCH (12:16)
--- NOTE | 2019-06-05 18:07 | Hospitalist Progress Note ---
Date of Service June 05, 2019 Assessment & Plan (1) Acute blood loss anemia: 73 yo F with PMHx alcohol related dementia and liver dysfunction and A- fib on Eliquis admitted on 05/29/19 with concern for sepsis, work-up negative; now with acute blood loss anemia. Acute blood loss anemia secondary to R thigh hematoma - Source of bleed likely large hematoma on R posterior thigh with multiple additional bruises on forearms bilaterally. It is unclear given history as to whether this bleed was spontaneous or provoked by a fall. Patient cannot provide clear history (has alcohol related dementia). No evidence of retroperitoneal bleeding on CT Abdomen/Pelvis, no otis blood in stools reported. Hemoccult negative. - Pt's Hgb dropped > 4 pts in one week. s/p 1 u pRBC, 2u FFP transfusion - hgb at stable at 11.0 today Sepsis ruled out - Work up negative - wound culture of toe grew staph MRSA sensitive to bactrim; topical antibiotic ointment ordered - isolation precaution as such per hospital policy. JESS on CKD stage III: resolved - creatinine at 1.05 06/03, returned to baseline - PO fluids, daily BMP. Anasarca with pleural effusions and decreased albumin: - Pt with anasarca on CT with bilateral pleural effusions (mild-moderate). signs of fluid overload on exam - albumin low at 2.3 - possibly from poor oral intake. follow. Atrial fibrillation: - Recently placed on Eliqius for anticoagulation. - HAS BLED score 4, placing her at 8.9% risk of major bleed per 100-patient years; weigh risks/benefits of restarting anticoagulation for stroke protection vs. fall risk and subsequent bleed. After careful consideration, we will restart patient on Eliquis today for continued stroke protection. She will be going to acute rehab upon discharge, where fall precautions will be taken - Rate controlled with metoprolol at 25mg PO BID and diltiazem 180mg qAM. Alcoholic dementia with AMS: - CT Head shows no acute intracranial abnormalities. - Per prior notes pt becomes more altered, disoriented, agitated with benzodiazepines. Will continue to hold all benzos this admission given her ad verse reaction to them. Hydroxyzine ordered prn for agitation - Continue thiamine, folic acid, biotin PO. - Continue magnesium PO. Elevated troponin: resolved - Pt has a history of elevated troponin previously due to demand on kidneys with CKD. No concern of ACS - Cardiology saw and appreciate input: limited Echo performed. Compression fracture: - Appears old on imaging. - No intervention at this time. - consider DEXA scan as outpatient Depression: -home sertraline, quetiapine. - QTc 460ms on EKG Code Status: FULL CODE FEN/GI: Heart Healthy diet DVT ppx: pt with acute blood loss anemia, ppx contraindicated Dispo: med/surg with telemetry; likely go to [facility] for acute rehab pending authorization (2) Sepsis: (3) Hematoma: (4) Abnormal finding on urinalysis: (5) Atelectasis: (6) Elevated troponin: (7) Acute kidney injury: (8) Hypomagnesemia: (9) Alcoholic dementia: (10) Mitral regurgitation: (11) Hypotension: (12) Atrial fibrillation: (13) CKD (chronic kidney disease) stage 3, GFR 30-59 ml/min: (14) Hx of falling: (15) History of compression fracture of spine: (16) Pleural effusion: (17) Anasarca: (18) Hypoalbuminemia: Supervising Physician Co-Signing Physician Notes Resident Physician Supervision Note: I independently interviewed and examined the patient and verified the lucio history and physical, reviewed labs and image studies, discussed the case with the resident Dr. Peterson and agree with the findings and care plan. Subjective No acute events overnight. Reports being in higher spirits today. Eating and drinking well. Review of Systems Review of Systems: All systems reviewed & are unremarkable except as noted in HPI & below Physical Exam Constitutional: WD/WN, vitals as above Eyes: PERRL, conjunctivae normal, anicteric sclerae ENMT: external ear and nose normal, oropharynx normal Neck: normal visual inspection and trachea midline Respiratory: normal respiratory effort, lungs clear to auscultation normal respiratory effort; no respiratory distress and no cough Auscultation: no crackles, no rales, no rhonchi, no wheezes and no pleural rub Cardiovascular: Rate/Rhythm: regular rate and + irregularly irregular Heart Sounds: normal S1 and normal S2; no click, no gallop, no murmur and no cardiac rub Gastrointestinal (Abdomen): normal bowel sounds, soft, nontender, no hepatosplenomegaly Skin: Trauma: + contusion (present on B/l upper extremities) and + hematoma (R posterior thigh) Psychiatric: A+Ox3, euthymic affect Results & Data Vital Signs (Past 12 Hours) Vital Signs Temp Pulse Pulse Resp BP Pulse Ox 06/05/19 15:26 86 06/05/19 15:17 36.6 C 84 19 101/69 96 06/05/19 11:33 36.5 C 95 H 16 125/88 96 06/05/19 08:13 36.6 C 94 H 16 134/88 94 Resident Activity Tracking Resident Involvement: Resident Care Provided Care Provided: Adult Hospital Medicine (1) Atrial fibrillation Atrial fibrillation type: unspecified Qualified Code(s): I48.91 - Unspecified atrial fibrillation (2) Sepsis Sepsis acute organ dysfunction status: unspecified Sepsis type: sepsis due to unspecified organism Qualified Code(s): A41.9 - Sepsis, unspecified organism (3) Hypotension Hypotension type: unspecified hypotension type Qualified Code(s): I95.9 - Hypotension, unspecified
[2019-06-05] MEDS: QUETIAPINE FUMARATE 100 MG TABLET PO SCH (20:26)
[2019-06-06] MEDS: ALBUTEROL HFA 8 GM INHALER INH SCH ×4 (08:00→20:36)
[2019-06-06] MEDS: APIXABAN 5 MG TABLET PO SCH ×2 (09:31→20:39)
[2019-06-06] MEDS: MAGNESIUM OXIDE 400 MG TAB PO SCH (09:32)
[2019-06-06] MEDS: THIAMINE HCL 100 MG TAB PO SCH (09:32)
[2019-06-06] MEDS: METOPROLOL TARTRATE 50 MG TAB PO SCH ×2 (09:32→20:40)
[2019-06-06] MEDS: SERTRALINE HCL 50 MG TABLET PO SCH (09:33)
[2019-06-06] MEDS: SENNA 8.6 MG TAB PO SCH (09:33)
[2019-06-06] MEDS: FOLIC ACID 1 MG TAB PO SCH (09:34)
[2019-06-06] MEDS: NEOMYCIN/POLYMYX/BACITR OINT 15 GM TUBE TOP SCH (13:25)
--- NOTE | 2019-06-06 15:07 | Hospitalist Progress Note ---
Date of Service June 06, 2019 Assessment & Plan (1) Acute blood loss anemia: 73 yo F with PMHx alcohol related dementia and liver dysfunction and A-fib on Eliquis admitted on 05/29/19 with concern for sepsis, work-up negative; now with acute blood loss anemia. Acute blood loss anemia secondary to R thigh hematoma - Source of bleed likely large hematoma on R posterior thigh with multiple additional bruises on forearms bilaterally. It is unclear given history as to whether this bleed was spontaneous or provoked by a fall. Patient cannot provide clear history (has alcohol related dementia). Adult son Nghia who is POA denies report of a fall preceding admission. No evidence of retroperitoneal bleeding on CT Abdomen/Pelvis, no otis blood in stools reported. Hemoccult negative. - Pt's Hgb dropped > 4 pts in one week. s/p 1 u pRBC, 2u FFP transfusion - hgb at stable at 11.0 Sepsis ruled out - Work up negative - wound culture of toe grew staph MRSA sensitive to bactrim; topical antibiotic ointment ordered - isolation precaution as such per hospital policy. JESS on CKD stage III: resolved - creatinine at 1.05 06/03, returned to baseline - PO fluids, daily BMP. Anasarca with pleural effusions and decreased albumin: - Pt with anasarca on CT with bilateral pleural effusions (mild-moderate). signs of fluid overload on exam - albumin low at 2.3 - possibly from poor oral intake. follow. Atrial fibrillation: - Recently placed on Eliqius for anticoagulation. -[id number] score of 4, placing patient at 4.8% risk of stroke per year. HAS BLED score 4, placing her at 8.9% risk of major bleed per 100-patient years; weigh risks/benefits of restarting anticoagulation for stroke protection vs. fall risk and subsequent bleed. After careful consideration, restart patient on Eliquis today for continued stroke protection. She will be going to acute rehab upon discharge, where fall precautions will be taken - Rate controlled with metoprolol at 25mg PO BID and diltiazem 180mg qAM. Alcoholic dementia with AMS: - CT Head shows no acute intracranial abnormalities. - Son Nghia provides history of alcohol withdrawal with subsequent delerium tremens in 06/2018. Patient placed on benzos fallowing this event; was on 3mg dose of clonazepam, which she was completely weaned off of 3 weeks prior to admission. - Hydroxyzine ordered prn for agitation - Continue thiamine, folic acid, biotin PO. - Continue magnesium PO. Elevated troponin: resolved - Pt has a history of elevated troponin previously due to demand on kidneys with CKD. No concern of ACS - Cardiology saw and appreciate input: limited Echo performed. Compression fracture: - Appears old on imaging. - No intervention at this time. - consider DEXA scan as outpatient Depression: -home sertraline, quetiapine. - QTc 460ms on EKG Code Status: FULL CODE FEN/GI: Heart Healthy diet DVT ppx: pt with acute blood loss anemia, ppx contraindicated Dispo: med/surg with telemetry; authorization not approved for [facility]; son is attempting a reapplication (2) Sepsis: (3) Hematoma: (4) Abnormal finding on urinalysis: (5) Atelectasis: (6) Elevated troponin: (7) Acute kidney injury: (8) Hypomagnesemia: (9) Alcoholic dementia: (10) Mitral regurgitation: (11) Hypotension: (12) Atrial fibrillation: (13) CKD (chronic kidney disease) stage 3, GFR 30-59 ml/min: (14) Hx of falling: (15) History of compression fracture of spine: (16) Pleural effusion: (17) Anasarca: (18) Hypoalbuminemia: Supervising Physician Co-Signing Physician Notes Resident Physician Supervision Note: I independently interviewed and examined the patient and verified the lucio history and physical, reviewed labs and image studies, discussed the case with the resident Dr. Peterson and agree with the findings and care plan. Subjective No acute events overnight. Eating and drinking well. Describes some trouble swallowing pills Physical Exam Constitutional: WD/WN, vitals as above Eyes: PERRL, conjunctivae normal, anicteric sclerae ENMT: external ear and nose normal, oropharynx normal Neck: normal visual inspection and trachea midline Respiratory: normal respiratory effort, lungs clear to auscultation normal respiratory effort; no respiratory distress and no cough Auscultation: no crackles, no rales, no rhonchi, no wheezes and no pleural rub Cardiovascular: Rate/Rhythm: regular rate and + irregularly irregular Heart Sounds: normal S1 and normal S2; no click, no gallop, no murmur and no cardiac rub +anasarca Gastrointestinal (Abdomen): normal bowel sounds, soft, nontender, no hepatosplenomegaly Skin: Trauma: + contusion (present on B/l upper extremities) and + hematoma (R posterior thigh) Psychiatric: A+Ox3, euthymic affect Results & Data Vital Signs (Past 12 Hours) Vital Signs Temp Pulse Resp BP Pulse Ox 06/06/19 11:37 94 06/06/19 11:23 36.6 C 89 18 107/70 94 06/06/19 07:36 36.6 C 104 H 18 133/100 95 06/06/19 04:17 36.4 C L 77 18 130/97 96 Resident Activity Tracking Resident Involvement: Resident Care Provided Care Provided: Adult Hospital Medicine (1) Atrial fibrillation Atrial fibrillation type: unspecified Qualified Code(s): I48.91 - Unspecified atrial fibrillation (2) Sepsis Sepsis acute organ dysfunction status: unspecified Sepsis type: sepsis due to unspecified organism Qualified Code(s): A41.9 - Sepsis, unspecified organism (3) Hypotension Hypotension type: unspecified hypotension type Qualified Code(s): I95.9 - Hypotension, unspecified
[2019-06-06] MEDS: QUETIAPINE FUMARATE 100 MG TABLET PO SCH (20:41)
[2019-06-07] MEDS: FOLIC ACID 1 MG TAB PO SCH (08:30)
[2019-06-07] MEDS: MAGNESIUM OXIDE 400 MG TAB PO SCH (08:31)
[2019-06-07] MEDS: APIXABAN 5 MG TABLET PO SCH (08:31)
[2019-06-07] MEDS: SENNA 8.6 MG TAB PO SCH (08:31)
[2019-06-07] MEDS: SERTRALINE HCL 50 MG TABLET PO SCH (08:32)
[2019-06-07] MEDS: THIAMINE HCL 100 MG TAB PO SCH (08:33)
[2019-06-07] MEDS: METOPROLOL TARTRATE 50 MG TAB PO SCH (08:33)
[2019-06-07] MEDS: ALBUTEROL HFA 8 GM INHALER INH SCH ×3 (08:34→16:49)
--- NOTE | 2019-06-07 11:51 | Electrocardiogram Report ---
Test Reason : Blood Pressure : / mmHG Vent. Rate : 096 BPM Atrial Rate : 105 BPM P-R Int : 000 ms QRS Dur : 090 ms QT Int : 370 ms P-R-T Axes : 000 092 -67 degrees QTc Int : 467 ms Atrial fibrillation with premature ventricular or aberrantly conducted complexes Rightward axis Low voltage QRS Possible Old Anterior infarct (cited on or before 30-MAY-2019) Diffuse Nonspecific T wave abnormality Abnormal ECG When compared with ECG of 30-MAY-2019 06:21, No significant change Confirmed by Robbin Granger ([id number]) on 06/07/2019 11:50:38 AM Referred By: Nathan Mancini [place] Confirmed By:Robbin Granger
[2019-06-07] MEDS: NEOMYCIN/POLYMYX/BACITR OINT 15 GM TUBE TOP SCH (13:43)
--- NOTE | 2019-06-07 15:21 | Discharge Summary ---
Date of Service June 07, 2019 Admission HPI Per Admitting Provider Patient is a 73 years old female with past medical history of hypertension, syncope, alcohol abuse, elevated troponin, depression, persistent atrial fibrillation's on Eliquis, alcoholic encephalopathy who was brought to the emergency room from [facility] where she resides for worsening confusion. Patient son is next at the bedside and he explains that patient is normally confused at baseline but her confusion is worsening for the past the day. He noted that patient lower extremities are swollen and that the swelling is worsening. They were also concerned of bruise at the back of the patient right calf and thigh which is apparently getting larger and it is painful for the patient and touch. Patient son said that patient was in and out emergency room [facility] on several occasion and last one being in May 25, 2019. Patient is poor historian and it is impossible to take ROS due to her confusion. EKG is reviewed and shows atrial fibrillation with premature ventricular complexes and T wave inversion evident in anterolateral leads. Labs are reviewed: WBC is 6.69, hemoglobin 9, hematocrit 28.4, platelets of 136, PT 16.2, INR 1.6, APTT 48.2, blood gas pH 7.48, PCO2 231, PO2 75, bicarb 22, saturating oxygen saturation 95.2, sodium 138, potassium 3.9, chloride 104, BUN 24, creatinine 1.65 which is off of patient baseline 1.33. GFR is 30.9 and baseline is usually 40.1. She was hypoglycemic on the entrance and her POC glucose was 45, 58, 36, which improved with 2 doses of D5. Troponin is also elevated chronically. Patient troponin on May was 0.101, today was 0.241-->0. 609 even though patient is not reporting any chest pain. On exam patient has hallucinations and occasionally becomes combative. Urine is positive for nitrates and trace leukocyte esterase. Influenza A&B negative. CT of the head without contrast shows no acute intracranial abnormality. There is age-related atrophy and chronic small vessel changes. CT abdomen pelvis shows no acute process within the abdomen or pelvis. Anasarca, no retroperitoneal hematoma. No bowel obstruction. Chronic diverticulosis without evidence of acute diverticulitis. Moderate right and small left pleural effusions. Severe T12 compression fracture and moderate L3 compression fracture which are probably old. Cervical spine shows no fracture within the cervical spine. Stable degenerative changes compared to prior study. Chest x-ray significant for moderate right and small left pleural effusion with associated atelectasis. Exam compromised by motion artifact with no consolidation of suggested pneumonia . Moderate cardiomegaly. Anasarca. Severe T12 compression fracture likely old with 6 mm retropulsion which results in mild to moderate [place], no narrowing. Decision was made to admit patient to [facility] on telemetry for further evaluation and treatment of multiple comorbidities including but not limited to urinary tract infection, possible pneumonia, hematoma of the right leg. Admission Exam Per Admitting Provider Constitutional: WD/WN, vitals as above well developed and + obese Eyes: PERRL, conjunctivae normal, anicteric sclerae ENMT: external ear and nose normal, oropharynx normal Neck: trachea midline, no thyromegaly Respiratory: normal respiratory effort and + respiratory distress Auscultation: + crackles and + wheezes Cardiovascular: Rate/Rhythm: + irregularly irregular Vessels: dorsalis pedis pulses present Extremities: + pedal edema and + edema Gastrointestinal (Abdomen): normal bowel sounds, soft, nontender, no hepatosplenomegaly Musculoskeletal: no cyanosis or clubbing, extremities motor strength 5/5 Skin: no rashes, warm and dry Neurologic: patellar DTR's 2+ bilat, sensation intact Psychiatric: Apperance: + disheveled Motor Behavior: + psychomotor agitation Insight: + limited insight Judgement: + impaired judgement Patient presented with hallucinations and alcoholic encephalopathy. She does not appear to be in DT. Lymphatic: no cervical or axillary lymphadenopathy Principal Diagnosis acute blood loss anemia Discharge Exam Constitutional WD/WN, vitals as above + edematous (anasarca) Eyes PERRL, conjunctivae normal, anicteric sclerae ENMT external ear and nose normal, oropharynx normal Neck normal visual inspection and trachea midline Respiratory normal respiratory effort, lungs clear to auscultation normal respiratory effort; no respiratory distress and no cough Auscultation: no crackles, no rales, no rhonchi, no wheezes and no pleural rub Cardiovascular Rate/Rhythm: regular rate and + irregularly irregular Heart Sounds: normal S1 and normal S2; no click, no gallop, no murmur and no cardiac rub Gastrointestinal (Abdomen) normal bowel sounds, soft, nontender, no hepatosplenomegaly Skin Trauma: + contusion (present on B/l upper extremities) and + hematoma (R posterior thigh) Psychiatric A+Ox3, euthymic affect Discharge Data Allergies Allergy/AdvReac Type Severity Reaction Status Date / Time Penicillins Allergy Unknown CAN'T Verified 05/29/19 12:27 REMEMBER Macrolide Antibiotics Allergy Unknown Verified 05/29/19 12:27 MY[employer]IN [employer]GS Allergy Unknown CAN'T Uncoded 05/29/19 12:27 REMEMBER-SEE COMMENT Consultations 05/29/19 15:28 ED Decision to Admit Stat 05/29/19 19:46 Consult Cardiology Routine Ordered Studies 05/29/19 12:33 CT head/brain wo con Stat 05/29/19 13:27 CT abd pelvis wo con Stat CT cervical spine wo con Stat CT chest wo con Stat 05/29/19 21:31 US venous doppler [facility] Urgent Hospital Course (1) Acute blood loss anemia: 73 yo F with PMHx alcohol related dementia and liver dysfunction and A-fib on Eliquis admitted on 05/29/19 with concern for sepsis, work-up negative; found to have acute blood loss anemia. Acute blood loss anemia secondary to R thigh hematoma Pt's Hgb dropped > 4 pts in one week. Source of bleed likely large hematoma on R posterior thigh with multiple additional bruises on forearms bilaterally. It is unclear given history as to whether this bleed was spontaneous or provoked by a fall. Patient cannot provide clear history (has alcohol related dementia). Son Nghia who is POA denies any reports of fall by [place] staff preceding admission. No evidence of retroperitoneal bleeding on CT Abdomen/Pelvis, no otis blood in stools reported. Hemoccult negative. She was transfused with 1 u pRBC and 2u FFP. Hgb at stabilized at 11.0 by discharge. Eliquis was restarted. Recommend fall precautions at personal [facility]. Outpatient items to do: Recheck H&H Sepsis ruled out Initial concern on admission, work up negative. Wound culture of toe grew staph MRSA sensitive to bactrim; Continue to apply topical Neomycin antibiotic ointment daily until wound heals. JESS on CKD stage III: creatinine returned to baseline ~ 1.05 by end of hospital stay. Anasarca with pleural effusions and decreased albumin: Pt with anasarca on CT with bilateral pleural effusions (mild-moderate), signs of fluid overload on exam. Albumin low at 2.3. Cause of low albumin is possibly from poor oral intake (patient reports diminished appetite for several weeks preceding admission), or from alcohol-related liver dysfunction. Consider daily nutritional supplement (eg Ensure). Atrial fibrillation: Patient was recently placed on Eliqius in weeks prior to admission for anticoagulation. Eliquis was held initially during her hospital stay in the setting of acute bleed. [id number] score of 4, placing her at 4.8% risk of stroke per year. HAS BLED score 4, placing her at 8.9% risk of major bleed per 100-patient years; weighed risks/benefits of restarting anticoagulation for stroke protection vs. fall risk and subsequent bleed. After careful consideration and discussion with willis Agrawal who is POA, we will restart patient on Eliquis for continued stroke protection. We recommend fall precautions to be taken at personal [facility]. Continue rate control with metoprolol at 25mg PO BID and diltiazem 180mg qAM. Alcoholic dementia with AMS: CT Head on admission showed no acute intracranial abnormalities. Patient was supplemented with thiamine, folic acid, biotin and magnesium. Willis Agrawal provides history of alcohol withdrawal with subsequent delerium tremens in 06/2018. Avelina handy was subsequently placed on 3mg dose of clonazepam, which she was completely weaned off of 3 weeks prior to admission. Due to recently being weaned off benzos, hydroxyzine was ordered prn for agitation. Although effective, hydroxyzine does have anticholinergic properties. Ideally, patient would not use either agent moving forward. Elevated troponin: resolved Troponin peaked at 0.609 before trending down. Pt has a history of elevated troponin previously due to demand on kidneys with CKD. Cardiology saw patient and felt there was no concern for acute coronary syndrome. A 2D Echo was preformed and showed an EF 40-45% with global hypokinesis, mild concentric LVH and moderate mitral regurgitation. Compression fracture: Visualized at T12 on chest CT. Appears old on imaging. Outpatient items to do: consider DEXA scan (2) Sepsis: (3) Hematoma: (4) Abnormal finding on urinalysis: (5) Atelectasis: (6) Elevated troponin: (7) Acute kidney injury: (8) Hypomagnesemia: (9) Alcoholic dementia: (10) Mitral regurgitation: (11) Hypotension: (12) Atrial fibrillation: (13) CKD (chronic kidney disease) stage 3, GFR 30-59 ml/min: (14) Hx of falling: (15) History of compression fracture of spine: (16) Pleural effusion: (17) Anasarca: (18) Hypoalbuminemia: Total Time Total Time Spent Total Time Spent (In Minutes): see attending attestation Discharge Plan Discharge Items Patient Disposition: Personal Detention Reason For Visit: ALTERED MENTAL STATUS Discharge Diagnosis: Acute blood loss anemia Activity: Resume your previous activity Non-emergency contact: Primary Care Provider Call non-emergency contact if: you have any medication questions Follow-up/Referrals: Nathan Alex [Primary Care Provider] - Diet: Heart Healthy Addtl Attending Provider Instructions: 73 yo F with PMHx alcohol related dementia and liver dysfunction and A-fib on Eliquis admitted on 05/29/19 with concern for sepsis, work-up negative; found to have acute blood loss anemia. Acute blood loss anemia secondary to R thigh hematoma Pt's Hgb dropped > 4 pts in one week. Source of bleed likely large hematoma on R posterior thigh with multiple additional bruises on forearms bilaterally. It is unclear given history as to whether this bleed was spontaneous or provoked by a fall. Patient cannot provide clear history (has alcohol related dementia). Son Nghia who is POA denies any reports of fall by [place] staff preceding admission. No evidence of retroperitoneal bleeding on CT Abdomen/Pelvis, no otis blood in stools reported. Hemoccult negative. She was transfused with 1 u pRBC and 2u FFP. Hgb at stabilized at 11.0 by discharge. Eliquis was restarted. Recommend fall precautions at personal [facility]. Outpatient items to do: Recheck H&H Sepsis ruled out Initial concern on admission, work up negative. Wound culture of toe grew staph MRSA sensitive to bactrim; Continue to apply topical Neomycin antibiotic ointment daily until wound heals. JESS on CKD stage III: creatinine returned to baseline ~ 1.05 by end of hospital stay. Anasarca with pleural effusions and decreased albumin: Pt with anasarca on CT with bilateral pleural effusions (mild-moderate), signs of fluid overload on exam. Albumin low at 2.3. Cause of low albumin is possibly from poor oral intake (patient reports diminished appetite for several weeks preceding admission), or from alcohol-related liver dysfunction. Consider daily nutritional supplement (eg Ensure). Atrial fibrillation: Patient was recently placed on Eliqius in weeks prior to admission for anticoagulation. Eliquis was held initially during her hospital stay in the setting of acute bleed. [id number] score of 4, placing her at 4.8% risk of stroke per year. HAS BLED score 4, placing her at 8.9% risk of major bleed per 100-patient years; weighed risks/benefits of restarting anticoagulation for stroke protection vs. fall risk and subsequent bleed. After careful consideration and discussion with willis Agrawal who is POA, we will restart patient on Eliquis for continued stroke protection. We recommend fall precautions to be taken at personal [facility]. Continue rate control with metoprolol at 50mg PO BID and diltiazem 180mg qAM. Please note that home dose of metoprolol was 100mg BID prior to admission - systolic BP throughout hospital stay was 120s, thus her dose daily dose was reduced by half. Outpatient items to do: please have nurse monitor BP with change in beta-edwin dose Alcoholic dementia with AMS: CT Head on admission showed no acute intracranial abnormalities. Patient was supplemented with thiamine, folic acid, biotin and magnesium. Willis Agrawal provides history of alcohol withdrawal with subsequent delerium tremens in 06/2018. Patient was subsequently placed on 3mg dose of clonazepam, which she was completely weaned off of 3 weeks prior to admission. Due to recently being weaned off benzos, hydroxyzine was ordered prn for agitation. Although effective, hydroxyzine does have anticholinergic properties. Ideally, patient would not use either agent moving forward. Elevated troponin: resolved Troponin peaked at 0.609 before trending down. Pt has a history of elevated troponin previously due to demand on kidneys with CKD. Cardiology saw patient and felt there was no concern for acute coronary syndrome. A 2D Echo was preformed and showed an EF 40-45% with global hypokinesis, mild concentric LVH and moderate mitral regurgitation. Compression fracture: Visualized at T12 on chest CT. Appears old on imaging. Outpatient items to do: consider DEXA scan Pending Studies at Discharge: No Stand-Alone Forms: My [email or web address], Smoking Cessation Skilled Items Patient informed of condition?: Yes DNR: No Discharge Level of Care: Other Communicable Disease: No Discharge Prognosis: Stable Lines: None Urinary Catheter: No Medications and DC Order Prescriptions: Continued albuterol sulfate [Ventolin HFA] 90 mcg/actuation HFA aerosol inhaler 2 puff INHALATION Q4 RF: 0 metoprolol succinate 100 mg tablet extended release 24 hr 100 mg PO BID Qty: 60 RF: 0 acetaminophen [Tylenol Extra Strength] 500 mg Tablet 500 mg PO TID PRN (Reason: Pain) Qty: 30 RF: 0 sertraline 25 mg Tablet 25 mg PO QAM Qty: 30 RF: 0 folic acid 1 mg Tablet 1 mg PO QAM Qty: 30 RF: 0 sertraline 50 mg Tablet 50 mg PO QAM Qty: 30 RF: 0 Eliquis 5 mg Tablet 5 mg PO BID Qty: 60 RF: 0 biotin 1,000 mcg Tablet,Chewable 1,000 mcg PO QAM Qty: 30 RF: 0 sennosides-docusate sodium [Senna-S] 8.6-50 mg tablet 1 tab PO DAILY PRN (Reason: Constipation) RF: 0 quetiapine [Seroquel] 100 mg tablet 100 mg PO HS RF: 0 Triple Antibiotic 3.5mg-400 unit- 5,000 unit/gram Ointment 1 applic TOPICAL DAILY@1300 RF: 0 diltiazem HCl 180 mg Capsule,Extended Release 24 Hr 180 mg PO QAM RF: 0 thiamine HCl (vitamin B1) [Vitamin B-1] 100 mg tablet 100 mg PO QAM RF: 0 magnesium oxide [MagOx] 400 mg (241.3 mg magnesium) tablet 400 mg PO QAM RF: 0 docusate sodium 100 mg tablet 100 mg PO QAM RF: 0 Discontinued levofloxacin 750 mg tablet 750 mg PO Q48H 7 Days Qty: 3 RF: 0 Discharge Orders: Discharge Order (Routine); Ordered 06/07/19 Ordered By: Veronica Peterson Admission Data Admit Date/Time: 05/29/19 18:06 Attending Provider: Azra Farmer Admit Provider: Hayden Gilbert Primary Care Provider: Nathan Alex Other Providers: Hayden Gilbert ; Bryce Reddy ; [facility] ; Suyapa Cedeno ; Suleiman Nesbitt Other Interventions: Discharge Summary Assessment (RN) Last Done: 06/07/19 16:10 DC Date/Time DO NOT enter until pt leaves facility: 06/07/19 18:15 Supervising Physician Co-Signing Physician Notes Resident Physician Supervision Note: I independently interviewed and examined the patient and verified the lucio history and physical, reviewed labs and image studies, discussed the case with the resident Dr. Peterson and agree with the findings and care plan. Time spent in discharge 35 min Resident Activity Tracking Resident Involvement: Resident Care Provided Care Provided: Adult Hospital Medicine
== END 2019-06-07 18:15 | disposition home or self-care (01) | DRG 812 ==
LOC: ED 11:52 → SUATTDRO 18:06 → 2N 18:06

== ENCOUNTER 2019-06-14 08:29 | Inpatient (IN) ==
[2019-06-14 09:11] LABS: Basophils # (auto) 0.02 K/uL (0-0.2); Basophils % (auto) 0.2 %; Eosinophils # (auto) 0.01 K/uL (0-0.5); Eosinophils % (auto) 0.1 %; Hematocrit (blood only) 36.2 % (37-47); Hemoglobin 11.2 g/dL (12.0-16.0); Immature Granulocytes # (auto) 0.02 K/uL (0.00-0.02); Immature Granulocytes % (auto) 0.2 %; Lymphocytes % (auto) 10.6 %; Mean Corpuscular Hemoglobin 30.6 pg (25-34); Mean Corpuscular Hgb Conc 30.9 g/dL (32-36); Mean Corpuscular Volume 98.9 fL (80-100); Mean Platelet Volume 10.5 fL (7.4-10.4); Monocytes % (auto) 9.6 %; Neutrophils # (auto) 7.47 K/uL (1.4-6.5); Neutrophils % (auto) 79.3 %; Platelet Count 253 K/uL (130-400); RDW Standard Deviation 79.7 fL (36.4-46.3); Red Blood Count 3.66 M/uL (4.2-5.4); White Blood Count 9.42 K/uL (4.8-10.8)
--- NOTE | 2019-06-14 09:28 | CT Scan Report ---
CT cervical spine wo con CLINICAL HISTORY: 73 years-old Female presenting with fall. TECHNIQUE: Multidetector CT of the cervical spine was performed without the use of intravenous contra st. IV contrast: None. One or more dose lowering techniques were used consistent with the principles of ALARA (as low as reasonably achievable), including automatic exposure control, mA or kV adjustment to individual patient size, and/or use of iterative reconstruction. COMPARISON: 05/29/2019. CT DOSE (mGy.cm): The estimated cumulative dose is 2183.60 mGy.cm. FINDINGS: Draw Bench Operator topogram: Unremarkable. History near normal cervical lordosis. Vertebral bodies maintain normal height and alignment. Interve rtebral disc heights preserved though there are disc osteophyte complexes to varying degrees at nearl y every level. Mild posterior bony spurring at several levels. Evaluation of the soft tissues of the spinal canal demonstrate posterior spondylitic spurring resulting in mild to moderate osseous narrowi ng at C4-5 and to a lesser extent at several additional levels though no added soft tissue effacement . Moderate degenerative changes of the atlantodental articulation. Degenerative changes of the left t emporomandibular joint. Skull base intact within the visualized portion. Paraspinal soft tissues with in normal limits. Lung apices clear. Right pleural effusion suspected. IMPRESSION: 1. No acute osseous injury of the cervical spine. 2. Multilevel degenerative changes. 3. Right pleural effusion suspected. ACT 112: Negative or not required by law. Electronically signed by: Inocente Patton M.D. 06/14/2019 9:26 AM
--- NOTE | 2019-06-14 09:30 | CT Scan Report ---
CT head/brain wo con CLINICAL HISTORY: 73 years-old Female presenting with fall. TECHNIQUE: Multidetector CT imaging of the head was performed without the use of intravenous contrast . IV contrast: None. One or more dose lowering techniques were used consistent with the principles of ALARA (as low as reasonably achievable), including automatic exposure control, mA or kV adjustment t o individual patient size, and/or use of iterative reconstruction. COMPARISON: 05/29/2019. CT DOSE (mGy.cm): The estimated cumulative dose is 2183.60. FINDINGS: Shot Blast Equipment Operator topogram: Unremarkable. Proportional ventricular and sulcal prominence, likely age-related parenchymal volume loss. No hemorr conrad. Periventricular and subcortical white matter hypoattenuation, nonspecific but likely indicative of chronic small vessel ischemic change. No acute territorial infarct. No mass effect or midline kailash ft. No extra-axial fluid collection. Paranasal sinuses and mastoid air cells clear. Calvarium intact. IMPRESSION: 1. Chronic small vessel ischemic change. No acute intracranial abnormality. ACT 112: Negative or not required by law. Electronically signed by: Inocente Patton M.D. 06/14/2019 9:29 AM
--- NOTE | 2019-06-14 09:35 | CT Scan Report ---
ABDOMEN AND PELVIS CT WITHOUT CONTRAST HISTORY: Acute chest and abdominal trauma status post fall fall TECHNIQUE: Multiaxial CT images of the abdomen and pelvis were performed without contrast. A dose lo wering technique was utilized adhering to the principles of ALARA. COMPARISON STUDY: Chest CT of same day, CT abdomen and pelvis 05/29/2019 FINDINGS: Moderate right and small left pleural effusions appear unchanged. Right greater left bibasilar consol idation likely reflects associated compressive atelectasis. Study is motion degraded. Study is also l imited without the use of contrast. Artifact from positioning of the patient's upper extremities limi ts the study is well. There is no pneumatosis or pneumoperitoneum identified. Cardiomegaly with coron tommy arterial calcifications. Dilated pulmonary artery suggests pulmonary arterial hypertension. Limited evaluation of the solid abdominal organs without the use of IV contrast. Gallbladder is mildl y contracted and there is associated pericholecystic edema. The liver, spleen and right adrenal gland are unremarkable. Thickening of the left adrenal gland suggests hyperplasia. Moderate generalized pa ncreatic atrophy. Cortical thinning of the bilateral kidneys. Nonspecific bilateral perinephric stran ding. There may be a cyst within the mid pole left kidney. No hydronephrosis. Mora catheter within a decompressed or bladder. Air within the bladder lumen is likely secondary to instrumentation. Uterus appears surgically absent. Calcified plaque of the abdominal aorta without aneurysm. No retroperiton eal hematoma identified. No adenopathy. Mild wall thickening of the distal esophagus. No bowel obstruction or bowel wall thickening identifie d. Moderate fecal retention of the rectum. Mild to moderate fecal retention of the ascending and harman sverse colon. The appendix is not definitively seen. Anasarca. Demineralized appearance of the bones. Limited evaluation of the osseous structures secondary to the aforementioned motion artifact. Degene rative changes of the spine, pelvis and hips. Severe T12 compression deformity with 4 mm retropulsion is unchanged. Moderate L3 compression deformity without significant retropulsion is also unchanged. No acute fracture identified. Mild convex right curvature of the thoracolumbar junction. Sclerosis of the left sacral ala may reflect remote insufficiency fracture. IMPRESSION: 1. Limited exam as above. No acute posttraumatic intra-abdominal or intrapelvic abnormality identifie d. 2. T12 and L3 compression deformities are unchanged from the 05/29/2019 exam and are likely on a chroni c basis. No acute fracture identified. 3. Partially contracted gallbladder with nonspecific pericholecystic edema. Findings could be correla miranda with right upper quadrant abdominal ultrasound if of further clinical concern. 4. Anasarca. 5. No bowel obstruction or bowel wall thickening. 6. Moderate right and small left pleural effusions. 7. Additional findings as above. ACT 112: Negative or not required by law. The above report was generated using voice recognition software. It may contain grammatical, syntax o r spelling errors. Electronically signed by: Chucho Potter M.D. 06/14/2019 9:34 AM
[2019-06-14 09:43] LABS: Acanthocytes 1+; Anisocytosis Present; Schistocytes 1+; Toxic Vacuolation 1+
--- NOTE | 2019-06-14 10:08 | Emergency Department Note ---
Entered by Ronny Johnson acting as a scribe for Bryce Solares DO History of Present Illness General Chief complaint: Altered Mental Status Time Seen by Provider: 06/14/19 08:34 Source: patient and other (Nursing) Limitations: altered mental status History of Present Illness Onset (ago): day(s) 6 Location: head Pain Consistency: + other (worsening) Quality: + constant Associated symptoms: + other (fall) The patient is a 73 year old female who presents to the Emergency Room with complaints of constant and worsening AMS starting 6 days ago. Nursing states the patient took a fall 6 days ago and she has been having increasing AMS since. Nursing states the patient was at the ED last week but notes it was before the fall. Nursing states the patient takes Eliquis. Nursing states the patient has dementia. HPI is limited secondary to cognitive impairment limitation. Home Medications Home Medications Medication Instructions Recorded Confirmed Type Eliquis 5 mg PO BID #60 tab 05/07/19 06/14/19 Rx acetaminophen [Tylenol Extra 500 mg PO TID PRN #30 tab 05/07/19 06/14/19 Rx Strength] biotin 1,000 mcg PO QAM #30 tab 05/07/19 06/14/19 Rx folic acid 1 mg PO QAM #30 tab 05/07/19 06/14/19 Rx sertraline 25 mg PO QAM #30 tab 05/07/19 06/14/19 Rx sertraline 50 mg PO QAM #30 tab 05/07/19 06/14/19 Rx albuterol sulfate [Ventolin HFA] 2 puff INHALATION Q4 05/21/19 06/14/19 History quetiapine [Seroquel] 100 mg PO HS 05/25/19 06/14/19 History sennosides-docusate sodium 1 tab PO DAILY PRN 05/25/19 06/14/19 History [Senna-S] Triple Antibiotic 1 applic TOPICAL DAILY@1300 05/29/19 06/14/19 History docusate sodium 100 mg PO QAM 05/29/19 06/14/19 History magnesium oxide [MagOx] 400 mg PO QAM 05/29/19 06/14/19 History thiamine HCl (vitamin B1) [Vitamin 100 mg PO QAM 05/29/19 06/14/19 History B-1] diltiazem HCl 120 mg PO QAM 06/14/19 06/14/19 History metoprolol tartrate 50 mg PO BID 06/14/19 06/14/19 History Allergies Allergy/AdvReac Type Severity Reaction Status Date / Time Penicillins Allergy Unknown CAN'T Verified 06/14/19 09:03 REMEMBER Macrolide Antibiotics Allergy Unknown Verified 06/14/19 09:03 MYCIN FAMILY DRUGS Allergy Unknown CAN'T Uncoded 06/14/19 09:03 REMEMBER-SEE COMMENT Past Med/Surg History Medical History Anemia Anticoagulant long-term use Atrial fibrillation (Inactive) Chronic alcohol abuse Depression Hx of falling Hypertension (Chronic) Insomnia Mitral regurgitation Pneumonia (Resolved) Tobacco abuse Surgical History H/O: hysterectomy H/O: hysterectomy Family History Mother , age 70 of uncertain causes No problems noted. Father , The mid-60s of a rare bone cancer No problems noted. 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 Feels Safe at Home: Yes Smoking Status: Unknown if ever smoked Hx Alcohol Use: No Hx Substance Use: No Review of Systems Other (Unobtainable due to cognitive impairment limitation) Physical Exam Vital Signs Vital Signs - 24 hr 06/14/19 08:30 06/14/19 09:00 06/14/19 10:11 Temperature 36.6 C Temperature Source Axillary Pulse Rate 126 H Pulse Rate [Apical] 131 H 146 H Pulse Rhythm Irregular Pulse Rhythm [Apical] Irregular Irregular Pulse Strength Normal Pulse Strength [Apical] Normal Normal Respiratory Rate 24 24 24 Respiratory Effort / Characteristics Non-Labored Spontaneous Non-Labored Spontaneous Non-Labored Spontaneous Respiratory Depth Normal Normal Normal Respiratory Pattern Regular Regular Regular Blood Pressure 179/127 H Blood Pressure [Right Arm] 134/111 H 142/95 H Blood Pressure Mean 144 Blood Pressure Mean [Right Arm] 118 110 Blood Pressure Position Sitting Blood Pressure Position [Right Arm] Sitting Sitting Pulse Oximetry 94 94 92 Oxygen Delivery Method Nasal Cannula Nasal Cannula Oxymask Nasal Cannula Oxygen Flow Rate 2 2 3 Sepsis Recent Fever Within 48 Hours No Sepsis New/Unexplained Change in Mental Status No Sepsis Action Taken by Nursing No Action Required Oxygen Flow Rate - Titration 3 Pulse Oximetry Post Tiitration 92 06/14/19 12:00 Temperature Temperature Source Pulse Rate Pulse Rate [Apical] 153 H Pulse Rhythm Pulse Rhythm [Apical] Irregular Pulse Strength Pulse Strength [Apical] Respiratory Rate 20 Respiratory Effort / Characteristics Non-Labored Spontaneous Respiratory Depth Normal Respiratory Pattern Blood Pressure Blood Pressure [Right Arm] 143/96 H Blood Pressure Mean Blood Pressure Mean [Right Arm] 111 Blood Pressure Position Blood Pressure Position [Right Arm] Lying Pulse Oximetry 97 Oxygen Delivery Method Nasal Cannula Oxygen Flow Rate 2 Sepsis Recent Fever Within 48 Hours Sepsis New/Unexplained Change in Mental Status Sepsis Action Taken by Nursing Oxygen Flow Rate - Titration Pulse Oximetry Post Tiitration GENERAL: The patient is somewhat listless appearing. She appears anxious and uncomfortable. EYES: The conjunctivae are clear. The pupils are round and reactive. EARS, NOSE, MOUTH AND THROAT: The nose is without any evidence of any deformity. Mucous membranes are moist. Tongue is midline. NECK: The neck is nontender and supple. RESPIRATORY: Shallow respirations were noted. There are rales noted in the left lung field. Lung sounds are diminished in the right lung field. CARDIOVASCULAR: Irregular and tachycardic heart sounds are noted. There is no definite murmur. GASTROINTESTINAL: The abdomen is moderately distended. There is diffuse tenderness to palpation but no specific guarding rigidity. MUSCULOSKELETAL/EXTREMITIES: There is symmetric swelling of both lower extremities right greater than left. There is significant ecchymosis noted in the right lower extremity starting at the hip and extending into the foot. SKIN: Skin was warm and dry. There is pedal edema bilaterally. Significant ecchymosis was noted in both lower extremities right greater than left. NEUROLOGIC: Patient is oriented to person and place. She follows commands slowly. Strength was diminished but symmetric. Course Course 0836: The patient was evaluated in room B7, and a complete history and physical examination were performed. 1127: I discussed the patient's case with Dr. Gilbert - [facility]. She will evaluate the patient for further management. Administered Medications Diltiazem HCl 125 mg/ Dextrose 125 mls @ 10 mls/hr IV .[id number] [facility]; Protocol Stop: 07/14/19 13:14 Last Admin: 06/14/19 14:09 Dose: 10 mg/hr, 10 mls/hr Documented by: [id number] Cosigned by: [id number] Discontinued Medications Diltiazem HCl (Cardizem) 10 mg IV NOW STA Stop: 06/14/19 13:03 Last Admin: 06/14/19 14:09 Dose: 10 mg Documented by: [id number] Cosigned by: [id number] Medical Decision Making Differential Diagnosis Differential diagnoses includes but is not limited to toxic, metabolic, infectious, traumatic, cardiac, neurologic, hematologic, psychiatric and inflammatory etiologies. Medical Records Attestation: I reviewed the patient's medical records. Home Medications Current Medication List: was personally reviewed by me Laboratory Data Attestation: I reviewed the patient's lab results. Result diagrams: 06/14/19 08:56 06/14/19 09:53 Lab Results 06/14/19 06/14/19 06/14/19 Range/Units 08:56 08:56 08:56 WBC 9.42 (4.8-10.8) K/uL RBC 3.66 L (4.2-5.4) M/uL Hgb 11.2 L (12.0-16.0) g/dL Hct 36.2 L (37-47) % MCV 98.9 (80-100) fL MCH 30.6 (25-34) pg MCHC 30.9 L (32-36) g/dL RDW Std Deviation 79.7 H (36.4-46.3) fL RDW Coeff of Mario 22.0 H (11.5-14.5) % Plt Count 253 (130-400) K/uL MPV 10.5 H (7.4-10.4) fL Immature Gran % (Auto) 0.2 % Neut % (Auto) 79.3 % Lymph % (Auto) 10.6 % Gaines % (Auto) 9.6 % Eos % (Auto) 0.1 % Baso % (Auto) 0.2 % Immature Gran # (Auto) 0.02 (0.00-0.02) K/uL Neut # (Auto) 7.47 H (1.4-6.5) K/uL Lymph # (Auto) 1.00 L (1.2-3.4) K/uL Gaines # (Auto) 0.90 H (0.11-0.59) K/uL Eos # (Auto) 0.01 (0-0.5) K/uL Baso # (Auto) 0.02 (0-0.2) K/uL Hypersegmented Neuts 1+ Toxic Vacuolation 1+ Anisocytosis Present Acanthocytes (Spur) 1+ Schistocytes 1+ ESR 2 (0-21) mm/hr PT Cancelled INR Cancelled APTT Cancelled PTT Ratio Cancelled Sodium Potassium Chloride Carbon Dioxide Anion Gap BUN Creatinine Est Cr Clr Drug Dosing Est GFR ( Amer) Est GFR (Non-Af Amer) BUN/Creatinine Ratio Glucose Calcium Magnesium Total Bilirubin AST ALT Alkaline Phosphatase Total Creatine Kinase Troponin I C-Reactive Protein NT-Pro-B Natriuret Pep (0-900) pg/ml Total Protein Albumin Globulin Albumin/Globulin Ratio Procalcitonin (0-0.5) ng/ml TSH Free T4 (0.8-1.6) ng/dl Urine Color Urine Appearance (Clear) Urine pH (4.5-7.5) Ur Specific [place] (1.000-1.030) Urine Protein (Negative) Urine Glucose (UA) (Negative) Urine Ketones (Negative) Urine Blood (Negative) Urine Nitrite (Negative) Urine Bilirubin (Negative) Urine Urobilinogen (Negative) Ur Leukocyte Esterase (Negative) Urine WBC (Auto) (0-5) /hpf Urine RBC (Auto) (0-4) /hpf U Hyaline Cast (Auto) U Epithel Cells (Auto) (0-5) /lpf Urine Bacteria (Auto) (Negative) Ur Renal Epithelial Cell (0-5) /lpf 06/14/19 06/14/19 06/14/19 Range/Units 08:56 09:53 09:53 WBC (4.8-10.8) K/uL RBC (4.2-5.4) M/uL Hgb (12.0-16.0) g/dL Hct (37-47) % MCV (80-100) fL MCH (25-34) pg MCHC (32-36) g/dL RDW Std Deviation (36.4-46.3) fL RDW Coeff of Mario (11.5-14.5) % Plt Count (130-400) K/uL MPV (7.4-10.4) fL Immature Gran % (Auto) % Neut % (Auto) % Lymph % (Auto) % Gaines % (Auto) % Eos % (Auto) % Baso % (Auto) % Immature Gran # (Auto) (0.00-0.02) K/uL Neut # (Auto) (1.4-6.5) K/uL Lymph # (Auto) (1.2-3.4) K/uL Gaines # (Auto) (0.11-0.59) K/uL Eos # (Auto) (0-0.5) K/uL Baso # (Auto) (0-0.2) K/uL Hypersegmented Neuts Toxic Vacuolation Anisocytosis Acanthocytes (Spur) Schistocytes ESR (0-21) mm/hr PT 15.1 H INR 1.5 H APTT 31.4 H PTT Ratio 1.2 Sodium Cancelled 144 Potassium Cancelled 4.4 Chloride Cancelled 110 H Carbon Dioxide Cancelled 26 Anion Gap Cancelled 9.0 BUN Cancelled 39 H Creatinine Cancelled 1.42 H Est Cr Clr Drug Dosing Cancelled Not Reportable Est GFR ( Amer) Cancelled 43.0 Est GFR (Non-Af Amer) Cancelled 37.1 BUN/Creatinine Ratio Cancelled 27.7 H Glucose Cancelled 114 H Calcium Cancelled 9.1 Magnesium Cancelled 1.7 L Total Bilirubin Cancelled 1.9 H AST Cancelled 22 ALT Cancelled 19 Alkaline Phosphatase Cancelled 75 Total Creatine Kinase Cancelled 82 Troponin I Cancelled 0.035 C-Reactive Protein Cancelled 2.20 H NT-Pro-B Natriuret Pep (0-900) pg/ml Total Protein Cancelled 6.3 L Albumin Cancelled 3.5 Globulin Cancelled 2.8 Albumin/Globulin Ratio Cancelled 1.3 Procalcitonin (0-0.5) ng/ml TSH Cancelled 4.820 H Free T4 1.08 (0.8-1.6) ng/dl Urine Color Urine Appearance (Clear) Urine pH (4.5-7.5) Ur Specific [place] (1.000-1.030) Urine Protein (Negative) Urine Glucose (UA) (Negative) Urine Ketones (Negative) Urine Blood (Negative) Urine Nitrite (Negative) Urine Bilirubin (Negative) Urine Urobilinogen (Negative) Ur Leukocyte Esterase (Negative) Urine WBC (Auto) (0-5) /hpf Urine RBC (Auto) (0-4) /hpf U Hyaline Cast (Auto) U Epithel Cells (Auto) (0-5) /lpf Urine Bacteria (Auto) (Negative) Ur Renal Epithelial Cell (0-5) /lpf 06/14/19 06/14/19 06/14/19 Range/Units 09:53 09:54 09:54 WBC (4.8-10.8) K/uL RBC (4.2-5.4) M/uL Hgb (12.0-16.0) g/dL Hct (37-47) % MCV (80-100) fL MCH (25-34) pg MCHC (32-36) g/dL RDW Std Deviation (36.4-46.3) fL RDW Coeff of Mario (11.5-14.5) % Plt Count (130-400) K/uL MPV (7.4-10.4) fL Immature Gran % (Auto) % Neut % (Auto) % Lymph % (Auto) % Gaines % (Auto) % Eos % (Auto) % Baso % (Auto) % Immature Gran # (Auto) (0.00-0.02) K/uL Neut # (Auto) (1.4-6.5) K/uL Lymph # (Auto) (1.2-3.4) K/uL Gaines # (Auto) (0.11-0.59) K/uL Eos # (Auto) (0-0.5) K/uL Baso # (Auto) (0-0.2) K/uL Hypersegmented Neuts Toxic Vacuolation Anisocytosis Acanthocytes (Spur) Schistocytes ESR (0-21) mm/hr PT INR APTT PTT Ratio Sodium Potassium Chloride Carbon Dioxide Anion Gap BUN Creatinine Est Cr Clr Drug Dosing Est GFR ( Amer) Est GFR (Non-Af Amer) BUN/Creatinine Ratio Glucose Calcium Magnesium Total Bilirubin AST ALT Alkaline Phosphatase Total Creatine Kinase Cancelled Troponin I C-Reactive Protein NT-Pro-B Natriuret Pep > 66002 H (0-900) pg/ml Total Protein Albumin Globulin Albumin/Globulin Ratio Procalcitonin 0.11 (0-0.5) ng/ml TSH Free T4 (0.8-1.6) ng/dl Urine Color Dark Yellow Urine Appearance Cloudy A (Clear) Urine pH 5.0 (4.5-7.5) Ur Specific [place] 1.023 (1.000-1.030) Urine Protein Trace H (Negative) Urine Glucose (UA) Negative (Negative) Urine Ketones Negative (Negative) Urine Blood Negative (Negative) Urine Nitrite Positive A (Negative) Urine Bilirubin Negative (Negative) Urine Urobilinogen Negative (Negative) Ur Leukocyte Esterase Trace H (Negative) Urine WBC (Auto) 1-5 (0-5) /hpf Urine RBC (Auto) 0-4 (0-4) /hpf U Hyaline Cast (Auto) Not Reportable U Epithel Cells (Auto) >30 H (0-5) /lpf Urine Bacteria (Auto) Negative (Negative) Ur Renal Epithelial Cell 10-20 H (0-5) /lpf Imaging Data Radiologist's Impression: Radiology results as stated below per my review and th e radiologist's interpretation: ABDOMEN AND PELVIS CT WITHOUT CONTRAST HISTORY: Acute chest and abdominal trauma status post fall fall TECHNIQUE: Multiaxial CT images of the abdomen and pelvis were performed without contrast. A dose lowering technique was utilized adhering to the principles of ALARA. COMPARISON STUDY: Chest CT of same day, CT abdomen and pelvis 05/29/2019 FINDINGS: Moderate right and small left pleural effusions appear unchanged. Right greater left bibasilar consolidation likely reflects associated compressive atelectasis. Study is motion degraded. Study is also limited without the use of contrast. Artifact from positioning of the patient's upper extremities limits the study is well. There is no pneumatosis or pneumoperitoneum identified. Cardiomegaly with coronary arterial calcifications. Dilated pulmonary artery suggests pulmonary arterial hypertension. Limited evaluation of the solid abdominal organs without the use of IV contrast. Gallbladder is mildly contracted and there is associated pericholecystic edema. The liver, spleen and right adrenal gland are unremarkable. Thickening of the left adrenal gland suggests hyperplasia. Moderate generalized pancreatic atrophy. Cortical thinning of the bilateral kidneys. Nonspecific bilateral perinephric stranding. There may be a cyst within the mid pole left kidney. No h ydronephrosis. Mora catheter within a decompressed or bladder. Air within the bladder lumen is likely secondary to instrumentation. Uterus appears surgically absent. Calcified plaque of the abdominal aorta without aneurysm. No retroperitoneal hematoma identified. No adenopathy. Mild wall thickening of the distal esophagus. No bowel obstruction or bowel wall thickening identified. Moderate fecal retention of the rectum. Mild to moderate fecal retention of the ascending and transverse colon. The appendix is not definitively seen. Anasarca. Demineralized appearance of the bones. Limited evaluation of the osseous structures secondary to the aforementioned motion artifact. Degenerative changes of the spine, pelvis and hips. Severe T12 compression deformity with 4 mm retropulsion is unchanged. Moderate L3 compression deformity without significant retropulsion is also unchanged. No acute fracture identified. Mild convex right curvature of the thoracolumbar junction. Sclerosis of the left sacral ala may reflect remote insufficiency fracture. IMPRESSION: 1. Limited exam as above. No acute posttraumatic intra-abdominal or intrapelvic abnormality identified. 2. T12 and L3 compression deformities are unchanged from the 05/29/2019 exam and are likely on a chronic basis. No acute fracture identified. 3. Partially contracted gallbladder with nonspecific pericholecystic edema. Findings could be correlated with right upper quadrant abdominal ultrasound if of further clinical concern. 4. Anasarca. 5. No bowel obstruction or bowel wall thickening. 6. Moderate right and small left pleural effusions. 7. Additional findings as above. ACT 112: Negative or not required by law. The above report was generated using voice recognition software. It may contain grammatical, syntax or spelling errors. Electronically signed by: Chucho Potter M.D. 06/14/2019 9:[address] cervical spine wo con CLINICAL HISTORY: 73 years-old Female presenting with fall. TECHNIQUE: Multidetector CT of the cervical spine was performed without the use of intravenous contrast. IV contrast: None. One or more dose lowering techniques were used consistent with the principles of ALARA (as low as reasonably achievable), including automatic exposure control, mA or kV adjustment to individual patient size, and/or use of iterative reconstruction. COMPARISON: 05/29/2019. CT DOSE (mGy.cm): The estimated cumulative dose is 2183.60 mGy.cm. FINDINGS: [employer] topogram: Unremarkable. History near normal cervical lordosis. Vertebral bodies maintain normal height and alignment. Intervertebral disc heights preserved though there are disc osteophyte complexes to varying degrees at nearly every level. Mild posterior bony spurring at several levels. Evaluation of the soft tissues of the spinal canal demonstrate posterior spondylitic spurring resulting in mild to moderate osseous narrowing at C4-5 and to a lesser extent at several additional levels though no added soft tissue effacement. Moderate degenerative changes of the atlantodental articulation. Degenerative changes of the left temporomandibular joint. Skull base intact within the visualized portion. Paraspinal soft tissues within normal limits. Lung apices clear. Right pleural effusion suspected. IMPRESSION: 1. No acute osseous injury of the cervical spine. 2. Multilevel degenerative changes. 3. Right pleural effusion suspected. ACT 112: Negative or not required by law. Electronically signed by: Inocente Patton M.D. 06/14/2019 9:[address] chest wo con CT DOSE: HISTORY: Trauma fall TECHNIQUE: Multiaxial CT images of the chest were performed without contrast. A dose lowering technique was utilized adhering to the principles of ALARA. COMPARISON: 05/29/2019 FINDINGS: Right and left pleural effusion The This is unchanged compared to the prior study. No evidence for acute bony abnormality. Pre-existing compression deformity T12. No new or interval acute bony abnormalities. No evidence of pneumothorax. Mildly progressive body wall anasarca IMPRESSION: Chronic and pre-existing change. No acute process. Mildly progressive body wall anasarca ACT 112: Negative or not required by law. The above report was generated using voice recognition software. It may contain grammatical, syntax or spelling errors. Electronically signed by: Boone Boss M.D. 06/14/2019 10:07 AM XR chest 1V portable HISTORY: 73 years-old Female weakness acute weakness with altered mental status COMPARISON: Chest CT of same day TECHNIQUE: Portable AP view of the chest FINDINGS: Moderate cardiomegaly. No pneumothorax. Moderate right and small left pleural effusions with mild bibasilar consolidation. No overt pulmonary edema. Calcified plaque of the thoracic aortic arch. Dilated pulmonary arteries are better seen on comparison chest CT. Degenerative changes of the shoulders and spine. IMPRESSION: 1. Cardiomegaly without overt pulmonary edema. 2. Moderate right and small left pleural effusions with bibasilar opacities suggestive of compressive atelectasis. ACT 112: Negative or not required by law. The above report was generated using voice recognition software. It may contain grammatical, syntax or spelling errors. Electronically signed by: Chucho Potter M.D. 06/14/2019 10:[address] head/brain wo con CLINICAL HISTORY: 73 years-old Female presenting with fall. TECHNIQUE: Multidetector CT imaging of the head was performed without the use of intravenous contrast. IV contrast: None. One or more dose lowering techniques were used consistent with the principles of ALARA (as low as reasonably achievable), including automatic exposure control, mA or kV adjustment to individual patient size, and/or use of iterative reconstruction. COMPARISON: 05/29/2019. CT DOSE (mGy.cm): The estimated cumulative dose is 2183.60. FINDINGS: [employer] topogram: Unremarkable. Proportional ventricular and sulcal prominence, likely age-related parenchymal volume loss. No hemorrhage. Periventricular and subcortical white matter hypoattenuation, nonspecific but likely indicative of chronic small vessel ischemic change. No acute territorial infarct. No mass effect or midline shift. No extra-axial fluid collection. Paranasal sinuses and mastoid air cells clear. Calvarium intact. IMPRESSION: 1. Chronic small vessel ischemic change. No acute intracranial abnormality. ACT 112: Negative or not required by law. Electronically signed by: Inocente Patton M.D. 06/14/2019 9:29 AM XR hip RT 2V w pelvis HISTORY: 73 years-old Female fall acute pelvic and right hip pain status post fall COMPARISON: CT abdomen and pelvis of same day, radiographs of the right femur 05/29/2019 TECHNIQUE: AP view of the pelvis with 2 views of the right hip FINDINGS: Demineralized appearance the bones. Mild to moderate osteoarthritis of the femoral acetabular joints. Chondrocalcinosis of the pubic symphysis. No acute fracture, dislocation or avascular necrosis identified. Diffuse soft tissue prominence likely correlates with the previously described anasarca. IMPRESSION: No acute fracture or dislocation. ACT 112: Negative or not required by law. The above report was generated using voice recognition software. It may contain grammatical, syntax or spelling errors. Electronically signed by: Chucho Potter M.D. 06/14/2019 10:07 AM ECG Data Attestation: I personally reviewed and interpreted this ECG as follows: Indication: + altered mental status Rate (beats per minute): 127 Rhythm: + atrial fibrillation (with RVR) ECG ST segments: + ST depression (lateral and inferior) ECG Findings: + PVCs Comparison ECG Date: from (06/07/19) Change: the following changes noted (Increased rate) Blood Pressure Blood Pressure Findings: Elevated blood pressure Blood Pressure Disposition: further management by hospitalist MDM Narrative The patient is a 73-year-old female who presented to the emergency department for lower extremity edema. The patient has had a fall and has had ecchymosis in her lower extremities. No definite bony injury was noted in the hips or pelvis. The patient was found to have significant anasarca over her entire body. She was in rapid atrial fibrillation. The patient's condition is difficult to manage at this time. Most of this appears to be chronic but worsening. Patient was found to have pleural effusions as well. I discussed the patient's laboratory and radiographic studies with her although she does have some degree of cognitive deficits. I also discussed her case with the on-call [facility] hospitalist group. She may require further intervention as well as possible diuresis. The patient may also have overall decrease intravascular status and may require infusion of albumin. The patient was reevaluated multiple times. She was maintaining a good saturation and found to be in rapid atrial fibrillation. She was not hypotensive. Impression & Plan Anasarca, Pleural effusion, AMS (altered mental status), Multiple falls, Atrial fibrillation with RVR Discharge Plan Visit Data *Final* Discharge Date/Time: 06/14/19 14:48 Chief Complaint: Altered Mental Status ED Provider: Bryce Solares Discharge Problem: Anasarca, Pleural effusion, AMS (altered mental status), Multiple falls, Atrial fibrillation with RVR Patient Disposition: Admitted As Inpatient Discharge Instructions Interventions: ED Discharge Assessment Last Done: 06/14/19 14:48 Discharge Problem: AMS (altered mental status) Qualifiers: Altered mental status type: unspecified Qualified Code(s): R41.82 - Altered mental status, unspecified The scribe's documentation has been prepared under my direction and personally reviewed by me in its entirety. I confirm that the note above accurately reflects all work, treatment, procedures, and medical decision making performed by me.
[2019-06-14 10:12] LABS: INR 1.5 (0.9-1.1); Partial Thromboplastin Ratio 1.2; Partial Thromboplastin Time 31.4 Seconds (21.0-31.0); Prothrombin Time 15.1 Seconds (9.0-12.0)
[2019-06-14 10:19] LABS: Alanine Aminotransferase 19 U/L (12-78); Albumin Level 3.5 gm/dl (3.4-5.0); Aspartate Aminotransferase 22 U/L (15-37); BUN Creatinine Ratio 27.7 (10-20); Blood Urea Nitrogen 39 mg/dl (7-18); Calcium 9.1 mg/dl (8.5-10.1); Carbon Dioxide 26 mmol/L (21-32); Chloride 110 mmol/L (98-107); Est GFR (Non-African American) 37.1; Glucose 114 mg/dl (70-99); Magnesium 1.7 mg/dl (1.8-2.4); Potassium 4.4 mmol/L (3.5-5.1); Sodium 144 mmol/L (136-145)
[2019-06-14 10:20] LABS: Appearance Urine Cloudy (Clear); Bacteria Urine Automated Negative (Negative); Blood Urine Negative (Negative); Color Urine Dark Yellow; Epithelial Cell Urine Auto >30 /lpf (0-5); Glucose Urine UA Negative (Negative); Ketones Urine Negative (Negative); Leukocyte Esterase Urine Trace (Negative); Nitrite Urine Positive (Negative); Protein Urine Trace (Negative); Specific Gravity Urine 1.023 (1.000-1.030); Urobilinogen Urine Negative (Negative)
[2019-06-14 10:27] LABS: Albumin Globulin Ratio 1.3 (0.9-2); Alkaline Phosphatase 75 U/L (45-117); Bilirubin,Total 1.9 mg/dl (0.2-1); Creatine Kinase 82 U/L (26-192); Globulin 2.8 gm/dl (2.5-4.0); Total Protein 6.3 gm/dl (6.4-8.2); Troponin I 0.035 ng/ml (0-0.045)
[2019-06-14 10:37] LABS: Bilirubin Urine Negative (Negative); Ictotest Urine Negative (Negative)
[2019-06-14 10:40] LABS: T4 Free Thyroxine 1.08 ng/dl (0.8-1.6)
[2019-06-14 10:42] LABS: RBC Urine Automated 0-4 /hpf (0-4)
[2019-06-14] MEDS ORDERED: dilTIAZem HCl 5 MG/ML 5 ML VIAL IV STA (13:02)
[2019-06-14] MEDS ORDERED: dilTIAZem HCL 125 MG in DEXTROSE 5% 100 ML IV SCH (13:15)
--- NOTE | 2019-06-14 13:30 | History & Physical Report ---
Date of Service June 14, 2019 Assessment & Plan (1) Anuria: Patient admits to PCU on telemetry Vital signs every 4 hours Patient has anasarca and anuria Patient produced only 85 cc of urine in 10 hours Given 80 mg of IV Lasix without much success Case discussed with nephrology Dr. Begum Follow the instructions Patient still did not produce any urine Hemodialysis not available at [facility] Ultrasound of the kidneys and bladder scan did not show urinary retention. No hydronephrosis. There is a moderate distance to severe cortical thinning of both kidneys. Bilateral kidneys atrophy. Will possibly need emergent hemodialysis Dysphagia: Speech therapy evaluation for swallowing. Patient's mental status is still altered , will keep her n.p.o. to prevent aspiration. Patient transferred to [facility] Accepting physician Dr. Boles. Patient son Nghia agreed with transfer over the phone. He gave permission for patient to be transferred to nurse supervisor carbon paper coating Ilia at the second floor PCU. Patient unable to sign her own constant since with altered mental status. Present on Admission?: Yes (2) Anasarca: As the above volume overload Present on Admission?: Yes (3) Pleural effusion: As the above management (4) AMS (altered mental status): Not clear origin of altered mental status. (5) Atrial fibrillation with RVR: Patient was placed on diltiazem drip with bolus for rapid A. fib's with RVR. Continue monitoring closely PCU on telemetry Present on Admission?: Yes (6) Metabolic encephalopathy: Possibly due to sepsis. Blood cultures pending Urine cultures pending Ammonia level normal Started antibiotics cefepime 2 g IV every 12 for urinary tract infection. Patient also has underlining issues with alcohol abuse. This could be contributing factor. Continue thiamine 100 mg p.o. every morning, continue sertraline 25 mg p.o. every morning, continue Seroquel 100 mg p.o. nightly. Present on Admission?: Yes (7) Hematoma: H/H stable, continue monitoring (8) Sepsis: Elevated lactic acid to 2.1, repeated 1.9. Continue Abx as discussed above. Follow up blood and urine cx. Pt has anasarca with pleural effusions Plan [place] [facility] Pt will need hemodialysis. Present on Admission?: Yes History of Present Illness Chief Complaint: altered mental status Primary Care Provider: [facility] The patient is a 73 years old female brought from the personal senior living at [facility] with past medical history of atrial fibrillation on Eliquis, depression, dementia, mitral regurgitation ,alcohol abuse, tobacco abuse, metabolic encephalopathy, CKD stage III, chronic diastolic heart failure, who was brought by EMS for generalized swelling, recent fall, large bruises, altered mental status. Patient lives in the personal senior living and in the past she was abusing alcohol. Per her son Nghia she quit drinking in June 2018. Per her son patient was weak yesterday but she was able to talk and she was oriented in person. She had a fall 6 days ago and her out third mental status was worsening since then.It is difficult to obtain any history from the patient. I spoke to her son over the phone and he stated that patient will is to be DNR/DNI. Since this morning patient did not produce any urine. EKG shows atrial fibrillation with rapid ventricular response with premature ventricular conducted complexes. Low voltage QRS. Labs are reviewed: WBC is 9.42, RBCs 3.66, hemoglobin 11.2, hematocrit 36.2, platelets 253, PT 15.1, INR 1.5, APTT 31.4. Sodium 144, potassium 4.4, chloride 110, carbon dioxide 26, anion gap 9, BUN 39, creatinine 1.42, GFR 37.1, lactate 2.1, calcium 9.1, magnesium 1.7, total bilirubin 1.9 AST 22, ALT 19, alkaline phosphatase [address] abdomen and pelvis T12 and L3 compression deformities are unchanged from May 29, 2019 examined are likely on a chronic basis. No acute fracture identified. Partially contracted gallbladder with nonspecific arnie-cholecystitis edema. Findings could be correlated with the right upper quadrant abdominal ultrasound a for further clinical concern. Anasarca. No bowel obstruction or bowel wall thickening. Moderate right and small left pleural effusions. CT cervical spine without contrast no acute osseous injury of the cervical spine. Multilevel degenerative changes. Right pleural effusion suspected. CT of the head: Chronic small vessel ischemic changes. No acute intracranial abnormality. X- rays of the right hip where is a large bruise: No acute fracture or dislocation. Ultrasound of the liver: Nonspecific gallbladder wall thickening and pericholecystic fluid. No gallbladder distention or sonographic Gomez sign. These findings may relate to the fact that there is diffuse volume overload rather than increasing gallbladder pathology. Correlate with symptomatology. If there is a concern, HIDA scan should be obtained through this is not necessary based on the finding of this exam. Right pleural effusion. This also likely related to volume overload. Renal ultrasound pending. Decision was made to admit patient to PCU on telemetry for anasarca, altered mental status, bilateral pleural effusion, A. fib's with RVR. Eliquis is on hold since patient has a large bruise over her right hip and leg. Allergies Allergy/AdvReac Type Severity Reaction Status Date / Time Penicillins Allergy Unknown CAN'T Verified 06/14/19 09:03 REMEMBER Macrolide Antibiotics Allergy Unknown Verified 06/14/19 09:03 MYCIN FAMILY DRUGS Allergy Unknown CAN'T Uncoded 06/14/19 09:03 REMEMBER-SEE COMMENT Home Medications Home Medications Medication Instructions Recorded Confirmed Type Eliquis 5 mg PO BID #60 tab 05/07/19 06/14/19 Rx acetaminophen [Tylenol Extra 500 mg PO TID PRN #30 tab 05/07/19 06/14/19 Rx Strength] biotin 1,000 mcg PO QAM #30 tab 05/07/19 06/14/19 Rx folic acid 1 mg PO QAM #30 tab 05/07/19 06/14/19 Rx sertraline 25 mg PO QAM #30 tab 05/07/19 06/14/19 Rx albuterol sulfate [Ventolin HFA] 2 puff INHALATION Q4 05/21/19 06/14/19 History quetiapine [Seroquel] 100 mg PO HS 05/25/19 06/14/19 History sennosides-docusate sodium 1 tab PO DAILY PRN 05/25/19 06/14/19 History [Senna-S] Triple Antibiotic 1 applic TOPICAL DAILY@1300 05/29/19 06/14/19 History docusate sodium 100 mg PO QAM 05/29/19 06/14/19 History magnesium oxide [MagOx] 400 mg PO QAM 05/29/19 06/14/19 History thiamine HCl (vitamin B1) [Vitamin 100 mg PO QAM 05/29/19 06/14/19 History B-1] diltiazem HCl 120 mg PO QAM 06/14/19 06/14/19 History metoprolol tartrate 50 mg PO BID 06/14/19 06/14/19 History Past Med/Surg History Medical History Anemia Anticoagulant long-term use Atrial fibrillation (Inactive) Chronic alcohol abuse Depression Hx of falling Hypertension (Chronic) Insomnia Mitral regurgitation Pneumonia (Resolved) Tobacco abuse Surgical History H/O: hysterectomy H/O: hysterectomy Family History Mother , age 70 of uncertain causes No problems noted. Father , The mid-60s of a rare bone cancer No problems noted. 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 Feels Safe at Home: Yes Smoking Status: Former smoker Tobacco Type: cigarettes ; Cigarettes Per Day: Half a pack per day ; Second Hand Exposure: No ; Hx Alcohol Use: No Hx Substance Use: No Review of Systems Review of Systems: All systems reviewed & are unremarkable except as noted in HPI & below Physical Exam Constitutional: WD/WN, vitals as above well developed and + ill appearing Eyes: PERRL, conjunctivae normal, anicteric sclerae ENMT: external ear and nose normal, oropharynx normal Neck: trachea midline, no thyromegaly Respiratory: normal respiratory effort, lungs clear to auscultation Cardiovascular: RRR, no murmur, no edema Gastrointestinal (Abdomen): normal bowel sounds, soft, nontender, no hepatosplenomegaly Musculoskeletal: no cyanosis or clubbing, extremities motor strength 5/5 Skin: Trauma: + hematoma Large hematoma covering the hip and back of the right lower extremity Neurologic: patellar DTR's 2+ bilat, sensation intact Psychiatric: Apperance: + disheveled Eye Contact: + poor eye contact Motor Behavior: + psychomotor retardation Patient is confused, she has dementia but as per her son it is worsening. Lymphatic: no cervical or axillary lymphadenopathy Results & Data Vital Signs (Past 12 Hours) Vital Signs Temp Pulse Pulse Resp BP BP Pulse Ox 06/14/19 12:00 153 H 20 143/96 H 97 06/14/19 10:11 146 H 24 142/95 H 92 06/14/19 09:00 131 H 24 134/111 H 94 06/14/19 08:30 36.6 C 126 H 24 179/127 H 94 Code Status & VTE Plan Code Status DNR/DNI VTE Prophylaxis Plan VTE Prophylaxis will be ordered: Yes PG Care Time/CCT Total # of Minutes Spent Total Time Spent with Patient: Total time spent is greater than 50% in coordination of care (as documented) at patient's floor/unit and/or counseling patient: Coding Level of Care Code 30774 Initial Inpt Care Lvl 3 Diagnoses Anuria R34 Anasarca R60.1 Pleural effusion J90 AMS (altered mental status) R41.82 Altered mental status type: unspecified Atrial fibrillation with RVR I48.91 Metabolic encephalopathy G93.41 Hematoma T14.8XXA Sepsis A41.9 (1) AMS (altered mental status) Altered mental status type: unspecified Qualified Code(s): R41.82 - Altered mental status, unspecified
--- NOTE | 2019-06-14 14:19 | Ultrasound Report ---
US liver CLINICAL HISTORY: 73 years-old Female presenting with nonspecific pericholecystitis. TECHNIQUE: Real-time grayscale and limited color Doppler ultrasound imaging of the abdomen limited to the right upper quadrant was performed. COMPARISON: CT from 06/14/2019. FINDINGS: Pancreas: Visualized portions of the pancreatic head and body normal. Liver: Normal echogenicity and echotexture. The liver measures 15.2 cm in maximal sagittal dimension. No sonographic evidence of hepatic mass. Main portal vein patent with normal directional flow. Biliary: No intrahepatic biliary ductal dilatation. Common bile duct measures up to 6 mm in diameter. Gallbladder: Gallbladder wall thickening and pericholecystic fluid. No gallstones. Sonographic Gomez 's sign negative. Right kidney: Normal in appearance without evidence of hydronephrosis. Ascites: None. Other: Right pleural effusion noted. IMPRESSION: 1. Nonspecific gallbladder wall thickening and pericholecystic fluid. No gallbladder distention or s onographic Gomez's sign. These findings may relate to the fact that there is diffuse volume overload rather than an intrinsic gallbladder pathology. Correlate with symptomatology. If there is concern, HIDA scan could be obtained though this is not necessary based on the findings on this exam. 2. Right pleural effusion. This also likely relates to volume overload. ACT 112: Negative or not required by law. Electronically signed by: Inocente Patton M.D. 06/14/2019 2:17 PM
[2019-06-14] MEDS ORDERED: DOCUSATE SODIUM/SENNA 50/8.6MG TAB PO PRN (16:13)
[2019-06-14] MEDS ORDERED: ALUMINUM/MAGNESIUM SUSP 30 ML UDC PO PRN (16:13)
[2019-06-14] MEDS ORDERED: ACETAMINOPHEN 325 MG TAB PO PRN (16:13)
[2019-06-14] MEDS ORDERED: ALBUTEROL HFA 8 GM INHALER INH SCH (16:13)
[2019-06-14] MEDS ORDERED: ONDANSETRON INJ 2 MG/ML 2 ML VIAL IV PRN (16:13)
[2019-06-14] MEDS ORDERED: POLYETHYLENE (MIRALAX) 17 GM PACK PO PRN (16:13)
[2019-06-14] MEDS ORDERED: MAGNESIUM HYDROXIDE SUSP 30 ML UDC PO PRN (16:13)
[2019-06-14] MEDS ORDERED: NEOMYCIN/POLYMYX/BACITR OINT 15 GM TUBE TOP SCH (16:13)
[2019-06-14] MEDS ORDERED: SODIUM CHLORIDE 0.9% 1000ML 250 ML IV ONE (18:27)
[2019-06-14] MEDS ORDERED: SODIUM CHLORIDE 0.9% 1000ML 1,000 ML IV SCH (18:30)
[2019-06-14] MEDS ORDERED: cefTRIAXone SODIUM 2,000 MG in DEXTROSE 5% 50 ML IV SCH (19:00)
[2019-06-14] MEDS ORDERED: FUROSEMIDE 40 MG in SYRINGE 0 ML IV ONE (19:57)
--- NOTE | 2019-06-14 20:13 | Ultrasound Report ---
RENAL ULTRASOUND HISTORY: anuria COMPARISON: Abdomen and pelvis CT 06/14/2019. FINDINGS: Right kidney: 8.9 cm. No hydronephrosis. Moderate to severe cortical thinning. There are multifocal a reas of cortical scarring. Normal corticomedullary differentiation. Left kidney: 7.9 cm. No hydronephrosis. Moderate to severe cortical thinning. There are multifocal ar eas of cortical scarring. Normal corticomedullary differentiation. Bladder: Decompressed by a Mora catheter. IMPRESSION: 1. No hydronephrosis. 2. Moderate to severe bilateral cortical renal scarring/atrophy. ACT 112: Negative or not required by law. Electronically signed by: Nelson Price M.D. 06/14/2019 8:12 PM
[2019-06-14] MEDS ORDERED: MAGNESIUM SULFATE / D5W 1 GM/100 ML BAG IV ONE (20:15)
[2019-06-14] MEDS ORDERED: FUROSEMIDE 80 MG in SYRINGE 0 ML IV ONE (20:45)
[2019-06-14] MEDS ORDERED: QUETIAPINE FUMARATE 100 MG TABLET PO SCH (21:00)
[2019-06-14] MEDS ORDERED: METOPROLOL TARTRATE 50 MG TAB PO SCH (21:00)
[2019-06-14] MEDS ORDERED: CEFEPIME 2,000 MG in SYRINGE 7.5 ML IV SCH (21:00)
--- NOTE | 2019-06-15 06:12 | Electrocardiogram Report ---
Test Reason : Blood Pressure : / mmHG Vent. Rate : 127 BPM Atrial Rate : 115 BPM P-R Int : 000 ms QRS Dur : 086 ms QT Int : 340 ms P-R-T Axes : 000 106 248 degrees QTc Int : 494 ms Poor data quality, interpretation may be adversely affected Atrial fibrillation with rapid ventricular response with premature ventricular or aberrantly conducte d complexes Rightward axis Low voltage QRS Septal infarct (cited on or before 30-MAY-2019) Nonspecific T wave abnormality Abnormal ECG When compared with ECG of 07-JUN-2019 05:20, Questionable change in initial forces of Anterior leads Confirmed by Ricky Marcos ([id number]) on 06/15/2019 6:12:06 AM Referred By: Confirmed By:Ricky Marcos
[2019-06-15] MEDS ORDERED: MAGNESIUM OXIDE 400 MG TAB PO SCH (09:00)
[2019-06-15] MEDS ORDERED: FOLIC ACID 1 MG TAB PO SCH (09:00)
[2019-06-15] MEDS ORDERED: DOCUSATE SODIUM 100 MG CAP PO SCH (09:00)
[2019-06-15] MEDS ORDERED: SERTRALINE HCL 50 MG TABLET PO SCH ×2 (09:00)
[2019-06-15] MEDS ORDERED: NON-FORMULARY MEDICATION (Biotin 1,000 MCG) PO SCH (09:00)
[2019-06-15] MEDS ORDERED: THIAMINE HCL 100 MG TAB PO SCH (09:00)
--- NOTE | 2019-06-16 11:18 | Discharge Summary ---
Date of Service June 14, 2019 Admission HPI Per Admitting Provider The patient is a 73 years old female brought from the personal retirement at [facility] with past medical history of atrial fibrillation on Eliquis, depression, dementia, mitral regurgitation ,alcohol abuse, tobacco abuse, metabolic encephalopathy, CKD stage III, chronic diastolic heart failure, who was brought by EMS for generalized swelling, recent fall, large bruises, altered mental status. Patient lives in the personal retirement and in the past she was abusing alcohol. Per her son Nghia she quit drinking in June 2018. Per her son patient was weak yesterday but she was able to talk and she was oriented in person. She had a fall 6 days ago and her out third mental status was worsening since then.It is difficult to obtain any history from the patient. I spoke to her son over the phone and he stated that patient will is to be DNR/DNI. Since this morning patient did not produce any urine. EKG shows atrial fibrillation with rapid ventricular response with premature ventricular conducted complexes. Low voltage QRS. Labs are reviewed: WBC is 9.42, RBCs 3.66, hemoglobin 11.2, hematocrit 36.2, platelets 253, PT 15.1, INR 1.5, APTT 31.4. Sodium 144, potassium 4.4, chloride 110, carbon dioxide 26, anion gap 9, BUN 39, creatinine 1.42, GFR 37.1, lactate 2.1, calcium 9.1, magnesium 1.7, total bilirubin 1.9 AST 22, ALT 19, alkaline phosphatase [address] abdomen and pelvis T12 and L3 compression deformities are unchanged from May 29, 2019 examined are likely on a chronic basis. No acute fracture identified. Partially contracted gallbladder with nonspecific arnie-cholecystitis edema. Findings could be correlated with the right upper quadrant abdominal ultrasound a for further clinical concern. Anasarca. No bowel obstruction or bowel wall thickening. Moderate right and small left pleural effusions. CT cervical spine without contrast no acute osseous injury of the cervical spine. Multilevel degenerative changes. Right pleural effusion suspected. CT of the head: Chronic small vessel ischemic changes. No acute intracranial abnormality. X- rays of the right hip where is a large bruise: No acute fracture or dislocation. Ultrasound of the liver: Nonspecific gallbladder wall thickening and pericholecystic fluid. No gallbladder distention or sonographic Gomez sign. These findings may relate to the fact that there is diffuse volume overload rather than increasing gallbladder pathology. Correlate with symptomatology. If there is a concern, HIDA scan should be obtained through this is not necessary based on the finding of this exam. Right pleural effusion. This also likely related to volume overload. Renal ultrasound pending. Decision was made to admit patient to PCU on telemetry for anasarca, altered mental status, bilateral pleural effusion, A. fib's with RVR. Eliquis is on hold since patient has a large bruise over her right hip and leg. Principal Diagnosis none Discharge Exam Constitutional WD/WN, vitals as above well developed and + ill appearing Eyes PERRL, conjunctivae normal, anicteric sclerae ENMT external ear and nose normal, oropharynx normal Neck trachea midline, no thyromegaly Respiratory normal respiratory effort, lungs clear to auscultation Cardiovascular RRR, no murmur, no edema Gastrointestinal (Abdomen) normal bowel sounds, soft, nontender, no hepatosplenomegaly Musculoskeletal no cyanosis or clubbing, extremities motor strength 5/5 Skin Trauma: + hematoma Neurologic patellar DTR's 2+ bilat, sensation intact Psychiatric Apperance: + disheveled Eye Contact: + poor eye contact Motor Behavior: + psychomotor retardation Lymphatic no cervical or axillary lymphadenopathy Discharge Data Allergies Allergy/AdvReac Type Severity Reaction Status Date / Time Penicillins Allergy Unknown CAN'T Verified 06/14/19 09:03 REMEMBER Macrolide Antibiotics Allergy Unknown Verified 06/14/19 09:03 MYCIN FAMILY DRUGS Allergy Unknown CAN'T Uncoded 06/14/19 09:03 REMEMBER-SEE COMMENT Consultations 06/14/19 12:18 ED Decision to Admit Stat 06/14/19 16:13 Consult Case Management - Discharge Planning Routine Ordered Studies 06/14/19 08:40 CT abd pelvis wo con Stat CT cervical spine wo con Stat CT chest wo con Stat CT head/brain wo con Stat 06/14/19 13:25 US liver Stat 06/14/19 18:48 US renal/blad retro comp Stat Hospital Course (1) Anuria: Patient admits to PCU on telemetry Vital signs every 4 hours Patient has anasarca and anuria Patient produced only 85 cc of urine in 10 hours Given 80 mg of IV Lasix without much success Case discussed with nephrology Dr. Begum Follow the instructions Patient still did not produce any urine Hemodialysis not available at [facility] Ultrasound of the kidneys and bladder scan did not show urinary retention. No hydronephrosis. There is a moderate distance to severe cortical thinning of both kidneys. Bilateral kidneys atrophy. Will possibly need emergent hemodialysis Dysphagia: Speech therapy evaluation for swallowing. Patient's mental status is still altered , will keep her n.p.o. to prevent aspiration. Patient transferred to [facility] Accepting physician Dr. Boles. Patient son Nghia agreed with transfer over the phone. He gave permission for patient to be transferred to nurse supervisor putty and caluking Ilia at the second floor PCU. Patient unable to sign her own constant since with altered mental status. (2) Anasarca: As the above volume overload (3) Pleural effusion: As the above management (4) AMS (altered mental status): Not clear origin of altered mental status. (5) Atrial fibrillation with RVR: Patient was placed on diltiazem drip with bolus for rapid A. fib's with RVR. Continue monitoring closely PCU on telemetry (6) Metabolic encephalopathy: Possibly due to sepsis. Blood cultures pending Urine cultures pending Ammonia level normal Started antibiotics cefepime 2 g IV every 12 for urinary tract infection. Patient also has underlining issues with alcohol abuse. This could be contributing factor. Continue thiamine 100 mg p.o. every morning, continue sertraline 25 mg p.o. every morning, continue Seroquel 100 mg p.o. nightly. (7) Hematoma: H/H stable, continue monitoring (8) Sepsis: Elevated lactic acid to 2.1, repeated 1.9. Continue Abx as discussed above. Follow up blood and urine cx. Pt has anasarca with pleural effusions Plan to transfer to [facility]. Pt will need hemodialysis. Total Time Total Time Spent Total Time Spent (In Minutes): over 30 min Discharge Plan Discharge Items Patient Disposition: Transfer Acute Care Hospital Reason For Visit: CONFUSION,ALTERED MENTAL STATUS Discharge Diagnosis: Anuria, Altered mental status, AFibs RVR, acute respiratory failure, large bruise, frequent falls, acute kidney failure Condition on Discharge: Fair Activity: As commented below Activity Comment: Patient is transferred emergently to the [facility] via [facility] ambulance Non-emergency contact: Primary Care Provider Call non-emergency contact if: you have any medication questions, your symptoms worsen and your rectal temperature is above 100.4 Follow-up/Referrals: Nathan Alex [Primary Care Provider] - Diet: Heart Healthy Diet Texture: Dental soft (bite-sized) Addtl Attending Provider Instructions: Accepting physician at [facility] hospitalist. Patient presented with anasarca, volume overload, altered mental status, acute respiratory failure, bilateral pleural effusion, acute kidney failure, large bruising over the body and frequent falls. For volume overload patient needs higher level of care and urgent hemodialysis. This was discussed with Dr. Boles and he accepted to patient to higher level of care. Hemodialysis not available tonight at [facility]. Patient was given 80 mg IV of Lasix without further success in producing urine. Patient condition was discussed in details with patient's son Nghia who agreed to transfer patient to higher level of care at [facility] where she can have urgent hemodialysis. His consent was signed over the phone because Nghia was not in the hospital but was able to consent to the transfer over the phone. This was c onfirmed by nurse supervisor putty and caluking Ilia at [facility] who spoke with the Nghia separately from me.The patient is transferred via [facility] ambulance to [facility]. Continue living hospital on the diltiazem drip running at 10 mg/hr, and detailed instructions are written on the flowsheet. Pending Studies at Discharge: No Stand-Alone Forms: My [facility] Skilled Items Patient informed of condition?: Yes DNR: Yes Discharge Level of Care: Other Communicable Disease: No Discharge Prognosis: Deteriorating Lines: Peripheral IV Urinary Catheter: Yes Medications and DC Order Prescriptions: Continued albuterol sulfate [Ventolin HFA] 90 mcg/actuation HFA aerosol inhaler 2 puff INHALATION Q4 RF: 0 acetaminophen [Tylenol Extra Strength] 500 mg Tablet 500 mg PO TID PRN (Reason: Pain) Qty: 30 RF: 0 sertraline 25 mg Tablet 25 mg PO QAM Qty: 30 RF: 0 folic acid 1 mg Tablet 1 mg PO QAM Qty: 30 RF: 0 Eliquis 5 mg Tablet 5 mg PO BID Qty: 60 RF: 0 biotin 1,000 mcg Tablet,Chewable 1,000 mcg PO QAM Qty: 30 RF: 0 sennosides-docusate sodium [Senna-S] 8.6-50 mg tablet 1 tab PO DAILY PRN (Reason: Constipation) RF: 0 quetiapine [Seroquel] 100 mg tablet 100 mg PO HS RF: 0 Triple Antibiotic 3.5mg-400 unit- 5,000 unit/gram Ointment 1 applic TOPICAL DAILY@1300 RF: 0 thiamine HCl (vitamin B1) [Vitamin B-1] 100 mg tablet 100 mg PO QAM RF: 0 magnesium oxide [MagOx] 400 mg (241.3 mg magnesium) tablet 400 mg PO QAM RF: 0 docusate sodium 100 mg tablet 100 mg PO QAM RF: 0 diltiazem HCl 120 mg Capsule,Extended Release 24 Hr 120 mg PO QAM RF: 0 metoprolol tartrate 50 mg Tablet 50 mg PO BID RF: 0 Discharge Orders: Discharge Order (Routine); Ordered 06/14/19 Ordered By: Hayden Gilbert Admission Data Admit Date/Time: 06/14/19 13:18 Attending Provider: Hayden Gilbert Admit Provider: Hayden Gilbert Primary Care Provider: Nathan Alex Other Providers: Hayden Gilbetr Other Interventions: Discharge Summary Assessment (RN) Last Done: 06/14/19 23:58 DC Date/Time DO NOT enter until pt leaves facility: 06/14/19 23:00 Coding Level of Care Code D/C Day Management >30 mins Diagnoses Anuria R34 Anasarca R60.1 Pleural effusion J90 AMS (altered mental status) R41.82 Altered mental status type: unspecified Atrial fibrillation with RVR I48.91 Metabolic encephalopathy G93.41 Hematoma T14.8XXA Sepsis A41.9
== END 2019-06-14 23:00 | disposition short-term general hospital (02) | DRG 682 ==
LOC: ED 08:29 → 2E 13:18

== ENCOUNTER 2019-07-12 12:25 | Inpatient (IN) ==
[2019-07-12] MEDS ORDERED: STAT IV Infusion **Titration per Protocol STA (13:40)
[2019-07-12] MEDS ORDERED: dilTIAZem HCL 125 MG in DEXTROSE 5% 100 ML IV SCH (13:45)
[2019-07-12 14:17] LABS: Basophils # (auto) 0.06 K/uL (0-0.2); Basophils % (auto) 0.6 %; Eosinophils # (auto) 0.38 K/uL (0-0.5); Eosinophils % (auto) 3.6 %; Hematocrit (blood only) 38.1 % (37-47); Hemoglobin 11.9 g/dL (12.0-16.0); Immature Granulocytes # (auto) 0.02 K/uL (0.00-0.02); Immature Granulocytes % (auto) 0.2 %; Lymphocytes # (auto) 1.19 K/uL (1.2-3.4); Lymphocytes % (auto) 11.2 %; Mean Corpuscular Hemoglobin 30.7 pg (25-34); Mean Corpuscular Hgb Conc 31.2 g/dL (32-36); Mean Corpuscular Volume 98.2 fL (80-100); Mean Platelet Volume 10.7 fL (7.4-10.4); Monocytes # (auto) 1.17 K/uL (0.11-0.59); Neutrophils % (auto) 73.4 %; Platelet Count 227 K/uL (130-400); RDW Coefficient of Variation 19.1 % (11.5-14.5); RDW Standard Deviation 67.9 fL (36.4-46.3); Red Blood Count 3.88 M/uL (4.2-5.4); White Blood Count 10.62 K/uL (4.8-10.8)
[2019-07-12 14:27] LABS: Appearance Urine Clear (Clear); Bacteria Urine Automated Negative (Negative); Bilirubin Urine Negative (Negative); Blood Urine Negative (Negative); Color Urine Yellow; Epithelial Cell Urine Auto 20-30 /lpf (0-5); Glucose Urine UA Negative (Negative); Ketones Urine Negative (Negative); Leukocyte Esterase Urine Trace (Negative); Nitrite Urine Negative (Negative); Protein Urine Negative (Negative); Specific Gravity Urine 1.013 (1.000-1.030); Urobilinogen Urine Negative (Negative)
[2019-07-12 14:27] LABS: INR 1.3 (0.9-1.1); Partial Thromboplastin Time 27.6 Seconds (21.0-31.0); Prothrombin Time 12.7 Seconds (9.0-12.0)
[2019-07-12 14:35] LABS: Alanine Aminotransferase 13 U/L (12-78); Albumin Level 3.7 gm/dl (3.4-5.0); Alkaline Phosphatase 67 U/L (45-117); BUN Creatinine Ratio 28.4 (10-20); Bilirubin,Total 1.3 mg/dl (0.2-1); Blood Urea Nitrogen 42 mg/dl (7-18); Calcium 9.6 mg/dl (8.5-10.1); Carbon Dioxide 22 mmol/L (21-32); Chloride 104 mmol/L (98-107); Creatinine Clr Calc Pharmacy 30.4 ml/min; Est GFR (African American) 41.2; Est GFR (Non-African American) 35.5; Globulin 3.6 gm/dl (2.5-4.0); Glucose 115 mg/dl (70-99); NT Pro B Type Natriuretic Pept > 35000 pg/ml (0-900); Sodium 136 mmol/L (136-145); Total Protein 7.3 gm/dl (6.4-8.2); Troponin I 0.083 ng/ml (0-0.045)
--- NOTE | 2019-07-12 14:42 | XRay Report ---
SINGLE VIEW CHEST CLINICAL HISTORY: Dyspnea. FINDINGS: An AP, portable, upright chest radiograph is compared to chest x-ray and chest CT dated 05/23. The examination is degraded by portable technique and patient rotation. The heart is enlarge d noting atherosclerotic calcification of the thoracic aorta. The pulmonary vasculature is noncongest ed. There is a small right pleural effusion with associated atelectasis. The left lung appears clear. No pneumothorax is seen. The skeletal structures are osteopenic. The bony thorax is grossly intact. IMPRESSION: 1. Cardiomegaly without radiographic evidence of congestive failure. 2. Small right pleural effusion with associated atelectasis. ACT 112: Negative or not required by law. Electronically signed by: Allan Jara M.D. 07/12/2019 2:41 PM
[2019-07-12 15:09] LABS: Potassium 4.3 mmol/L (3.5-5.1)
[2019-07-12] MEDS ORDERED: FUROSEMIDE 40 MG/4 ML VIAL IV STA (15:12)
[2019-07-12 15:14] LABS: Magnesium 1.7 mg/dl (1.8-2.4)
[2019-07-12 15:33] LABS: Influenza A virus by PCR Neg for Influ A (Neg); Influenza B virus by PCR Neg for Influ B (Neg)
[2019-07-12] MEDS ORDERED: MAGNESIUM SULFATE / D5W 1 GM/100 ML BAG IV ONE ×2 (15:38→18:30)
[2019-07-12] MEDS ORDERED: LORazepam 1 MG/2 ML VIAL IV STA (16:12)
[2019-07-12] MEDS ORDERED: LORazepam 2 MG/4 ML VIAL ONE (16:20)
--- NOTE | 2019-07-12 16:52 | History & Physical Report ---
Date of Service July 12, 2019 Assessment & Plan (1) Atrial fibrillation with RVR: Patient presenting in atrial fibrillation with rapid ventricular response. Diltiazem drip initiated in the ER. Heart rate is improving, presently 100 bpm We will continue diltiazem drip for now Continue home metoprolol Continue home Eliquis Present on Admission?: Yes (2) Fluid overload: [facility] states that patient gained 5 pounds in the last day. She is quite short of breath. BNP is elevated over 35,000. Chest x-ray does not support findings of CHF. On clinical exam she does have bibasilar crackles and some trace pitting edema but does not, overall seem to be in florid failure. Weight by our record (consider possibility of different scale, clothing, bedding) with 62 kg today. She was 70.4 kg on discharge 06/14/2019. Possibly some mild fluid overload in setting of A. fib with RVR. She was given 40 mg of Lasix IV in the ER. Will monitor output with Lasix 40 given in ER Mora in place Continue p.o. Lasix 40 mg daily Monitor strict intake and output, daily weights Sodium restricted diet Continue metoprolol and lisinopril (3) Hypoxia: Patient with new oxygen requirement, presently on 2 L nasal cannula with adequate saturation. She is quite anxious and tachypneic. Treatment of A. fib and volume overload as above Treatment of anxiety as below Continue supplemental oxygen as needed to maintain saturation greater than 94% Present on Admission?: Yes (4) Elevated troponin: Troponin = 0.083. Patient denies chest pain, no EKG evidence consistent with acute ischemia. Most likely secondary to demand ischemia in setting of atrial fibrillation with rapid ventricular response in conjunction with chronic kidney disease. Patient has history of elevated troponin in the past. She has been evaluated by cardiology during prior admission. 2D echo from 05/30/2019 with normal LV size, mildly reduced EF of 40 to 45% with global hypokinesis and mild concentric LVH. No wall motion abnormalities Telemetry monitoring as above Repeat troponin x1 to document trend Present on Admission?: Yes (5) Hypomagnesemia: Magnesium = 1.7. She was administered 1 g of magnesium in the ER We will give 1 additional gram of magnesium on arrival to the floor Present on Admission?: Yes (6) CKD (chronic kidney disease) stage 3, GFR 30-59 ml/min: Patient with CKD. BUN = 42, creatinine = 1.47 today. This is near baseline. Electrolytes are within normal range. Mora catheter was placed in the ER and patient has FreeFlow of clear, yellow urine. Continue to monitor BUN/creatinine/urine output Avoid nephrotoxic agents Renal dosing were needed Present on Admission?: Yes (7) Depression: Patient with history of major depressive disorder, acutely worsened after the loss of her . She has history of heavy alcohol consumption in the setting of grief. She is quite anxious today Continue sertraline at home dose Present on Admission?: Yes (8) Anxiety: Patient appears extremely anxious during my encounter. She has a history of the same and was previously on medications. Her family has voiced concern th at she will "become addicted" to antianxiety medications. Continue sertraline at home dose of 75 mg p.o. every morning 1 mg of Ativan administered in the ER We will try hydroxyzine 25 mg p.o. 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 Presently she is awake alert and oriented x4, answering questions appropriately and following all commands. Continue p.o. thiamine 100 mg daily Delirium prevention strategies with frequent orientation, maintenance of sleep/wake cycle and avoidance of delirium producing medications FENdiuresis as above with IV Lasix then p.o., monitor electrolytes and replete as needed, low-sodium diet as tolerated Prophylaxispatient on Eliquis for atrial fibrillation Codefull Dispositionadmission to PCU History of Present Illness Chief Complaint: Shortness of breath, edema Primary Care Provider: [facility] Karen Bradley is a 73-year-old female presenting from with [facility] with worsening shortness of breath and edema. Reported weight gain of 5 pounds overnight. Patient complains of cough productive for clear sputum as well as orthopnea, dizziness and weight gain. She denies chest pain/palpitations. Denies abdominal pain/nausea/vomiting but has had some loose stools lately. Patient recently admitted 06/14 through 06/16 with anasarca, altered mental status, atrial fibrillation and anuria. She was transferred to [facility] for possible hemodialysis. Patient did not require dialysis during that stay Per report, patient's heart rate was 150-180s prior to arrival to hospital today. Upon arrival she was afebrile, heart rate = 97, respiratory rate = 34, blood pressure = 138/113. She was hypoxic on room air to 89% was started on supplemental oxygen 2 L with adequate response. Presently 98%. She was started on diltiazem drip for heart rate control and is currently 100 bpm ER course: Diltiazem, magnesium, Lasix Allergies Allergy/AdvReac Type Severity Reaction Status Date / Time Penicillins Allergy Unknown CAN'T Verified 07/12/19 13:55 REMEMBER Macrolide Antibiotics Allergy Unknown Verified 07/12/19 13:55 [employer]CIN [employer]UGS Allergy Unknown CAN'T Uncoded 07/12/19 13:55 REMEMBER-SEE COMMENT Home Medications Home Medications Medication Instructions Recorded Confirmed Type biotin 1,000 mcg PO QAM #30 tab 05/07/19 07/12/19 Rx folic acid 1 mg PO QAM #30 tab 05/07/19 07/12/19 Rx sertraline 25 mg PO QAM #30 tab 05/07/19 07/12/19 Rx albuterol sulfate [Ventolin HFA] 2 puff INHALATION Q4H PRN 05/21/19 07/12/19 Hi story docusate sodium 100 mg PO QAM 05/29/19 07/12/19 History thiamine HCl (vitamin B1) [Vitamin 100 mg PO QAM 05/29/19 07/12/19 History B-1] Eliquis 2.5 mg PO BID 07/12/19 07/12/19 History furosemide 40 mg PO QAM 07/12/19 07/12/19 History lisinopril 2.5 mg PO QAM 07/12/19 07/12/19 History metoprolol succinate 200 mg PO QAM 07/12/19 07/12/19 History sertraline 50 mg PO QAM 07/12/19 07/12/19 History Past Med/Surg History Medical History (Updated 07/12/19 @ 16:45 by Ruth Reed DO) Anemia Acute blood loss anemia from right thigh hematoma Anticoagulant long-term use Atrial fibrillation (Inactive) Depression Hx of falling Hypertension (Chronic) Insomnia Mitral regurgitation Pneumonia (Resolved) Surgical History H/O: hysterectomy H/O: hysterectomy Family History Mother , age 70 of uncertain causes No problems noted. Father , The mid-60s of a rare bone cancer No problems noted. 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 Feels Safe at Home: Yes Smoking Status: Former smoker Tobacco Type: cigarettes ; Cigarettes Per Day: Half a pack per day ; Second Hand Exposure: No ; Hx Alcohol Use: No Hx Substance Use: No Review of Systems Review of Systems: All systems reviewed & are unremarkable except as noted in HPI & below Physical Exam Physical Exam: General: patient resting comfortably in bed, visibly tachypneic and highly anxious, non-toxic in appearance, AA&O x 4 Skin: warm, dry, intact, no rashes or lesions, ecchymosis noted on the right lateral thigh and knee HEENT: NC/AT, PERRL, EOMI, anicteric sclera, conjunctiva without injection, external ear normal to inspection and nontender, nares patent, moist mucus membranes, dentition intact, no oropharyngeal lesions, neck supple, trachea midline, no LAD, no thyromegaly, no JVD Heart: +S1/S2, irregularly irregular, tachycardic, no m/r/g Lungs: equal air entry bilaterally, + crackles in bilateral bases, no rhonchi/wheezes Abd: +BS, soft, NT/ND, no masses/organomegaly/ascites Ext: warm, 2+ pulses in UE/LE bilaterally, no clubbing/cyanosis, 1+ pitting edema to below knees bilaterally, slight. Neuro: nonfocal, patient AA&O x 4, speech intact, no facial droop, moving all extremities on command with equal strength 5/5 Results & Data Vital Signs (Past 12 Hours) Vital Signs Temp Pulse Pulse Resp BP BP Pulse Ox 07/12/19 16:01 100 H 22 123/100 97 07/12/19 15:30 98 H 27 H 146/114 H 98 07/12/19 15:15 100 H 30 H 149/103 H 98 07/12/19 15:01 102 H 29 H 99 07/12/19 15:00 94 H 30 H 160/98 H 100 07/12/19 14:45 112 H 29 H 138/97 100 07/12/19 14:31 105 H 26 H 100 07/12/19 14:30 102 H 27 H 140/108 H 100 07/12/19 14:23 124 H 28 H 148/97 H 97 07/12/19 14:20 103 H 26 H 148/97 H 97 07/12/19 14:00 109 H 30 H 99 07/12/19 13:31 96 H 39 H 97 07/12/19 13:30 107 H 35 H 149/95 H 100 07/12/19 13:25 89 L 07/12/19 13:13 95 H 29 H 147/99 H 96 07/12/19 13:00 91 H 27 H 93 07/12/19 12:35 36.8 C 90 28 H 138/113 H 95 07/12/19 12:33 101 H 33 H 95 07/12/19 12:32 97 H 34 H 138/113 H 94 Laboratory Results Lab Results 07/12/19 07/12/19 07/12/19 Range/Units 13:53 13:53 13:53 WBC 10.62 (4.8-10.8) K/uL RBC 3.88 L (4.2-5.4) M/uL Hgb 11.9 L (12.0-16.0) g/dL Hct 38.1 (37-47) % MCV 98.2 (80-100) fL MCH 30.7 (25-34) pg MCHC 31.2 L (32-36) g/dL RDW Std Deviation 67.9 H (36.4-46.3) fL RDW Coeff of Mario 19.1 H (11.5-14.5) % Plt Count 227 (130-400) K/uL MPV 10.7 H (7.4-10.4) fL Immature Gran % (Auto) 0.2 % Neut % (Auto) 73.4 % Lymph % (Auto) 11.2 % Weld % (Auto) 11.0 % Eos % (Auto) 3.6 % Baso % (Auto) 0.6 % Immature Gran # (Auto) 0.02 (0.00-0.02) K/uL Neut # (Auto) 7.80 H (1.4-6.5) K/uL Lymph # (Auto) 1.19 L (1.2-3.4) K/uL Weld # (Auto) 1.17 H (0.11-0.59) K/uL Eos # (Auto) 0.38 (0-0.5) K/uL Baso # (Auto) 0.06 (0-0.2) K/uL PT 12.7 H (9.0-12.0) Seconds INR 1.3 H (0.9-1.1) APTT 27.6 (21.0-31.0) Seconds PTT Ratio 1.0 Sodium 136 (136-145) mmol/L Potassium (3.5-5.1) mmol/L Chloride 104 (98-107) mmol/L Carbon Dioxide 22 (21-32) mmol/L Anion Gap 9.0 (3-11) BUN 42 H (7-18) mg/dl Creatinine 1.47 H (0.6-1.2) mg/dl Est Cr Clr Drug Dosing 30.4 ml/min Est GFR ( Amer) 41.2 Est GFR (Non-Af Amer) 35.5 BUN/Creatinine Ratio 28.4 H (10-20) Glucose 115 H (70-99) mg/dl Calcium 9.6 (8.5-10.1) mg/dl Magnesium (1.8-2.4) mg/dl Total Bilirubin 1.3 H (0.2-1) mg/dl AST (15-37) U/L ALT 13 (12-78) U/L Alkaline Phosphatase 67 (45-117) U/L Troponin I 0.083 H* (0-0.045) ng/ml NT-Pro-B Natriuret Pep > 72792 H (0-900) pg/ml Total Protein 7.3 (6.4-8.2) gm/dl Albumin 3.7 (3.4-5.0) gm/dl Globulin 3.6 (2.5-4.0) gm/dl Albumin/Globulin Ratio 1.0 (0.9-2) Urine Color Urine Appearance (Clear) Urine pH (4.5-7.5) Ur Specific Borger (1.000-1.030) Urine Protein (Negative) Urine Glucose (UA) (Negative) Urine Ketones (Negative) Urine Blood (Negative) Urine Nitrite (Negative) Urine Bilirubin (Negative) Urine Urobilinogen (Negative) Ur Leukocyte Esterase (Negative) Urine WBC (Auto) (0-5) /hpf Urine RBC (Auto) (0-4) /hpf U Hyaline Cast (Auto) (0-5) /lpf U Epithel Cells (Auto) (0-5) /lpf Urine Bacteria (Auto) (Negative) Influenza Type A (PCR) (Neg) Influenza Type B (PCR) (Neg) 07/12/19 07/12/19 07/12/19 Range/Units 13:55 14:37 14:50 WBC (4.8-10.8) K/uL RBC (4.2-5.4) M/uL Hgb (12.0-16.0) g/dL Hct (37-47) % MCV (80-100) fL MCH (25-34) pg MCHC (32-36) g/dL RDW Std Deviation (36.4-46.3) fL RDW Coeff of Mario (11.5-14.5) % Plt Count (130-400) K/uL MPV (7.4-10.4) fL Immature Gran % (Auto) % Neut % (Auto) % Lymph % (Auto) % Weld % (Auto) % Eos % (Auto) % Baso % (Auto) % Immature Gran # (Auto) (0.00-0.02) K/uL Neut # (Auto) (1.4-6.5) K/uL Lymph # (Auto) (1.2-3.4) K/uL Weld # (Auto) (0.11-0.59) K/uL Eos # (Auto) (0-0.5) K/uL Baso # (Auto) (0-0.2) K/uL PT (9.0-12.0) Seconds INR (0.9-1.1) APTT (21.0-31.0) Seconds PTT Ratio Sodium (136-145) mmol/L Potassium 4.3 (3.5-5.1) mmol/L Chloride (98-107) mmol/L Carbon Dioxide (21-32) mmol/L Anion Gap (3-11) BUN (7-18) mg/dl Creatinine (0.6-1.2) mg/dl Est Cr Clr Drug Dosing ml/min Est GFR ( Amer) Est GFR (Non-Af Amer) BUN/Creatinine Ratio (10-20) Glucose (70-99) mg/dl Calcium (8.5-10.1) mg/dl Magnesium 1.7 L (1.8-2.4) mg/dl Total Bilirubin (0.2-1) mg/dl AST 13 L (15-37) U/L ALT (12-78) U/L Alkaline Phosphatase (45-117) U/L Troponin I (0-0.045) ng/ml NT-Pro-B Natriuret Pep (0-900) pg/ml Total Protein (6.4-8.2) gm/dl Albumin (3.4-5.0) gm/dl Globulin (2.5-4.0) gm/dl Albumin/Globulin Ratio (0.9-2) Urine Color Yellow Urine Appearance Clear (Clear) Urine pH 5.0 (4.5-7.5) Ur Specific Borger 1.013 (1.000-1.030) Urine Protein Negative (Negative) Urine Glucose (UA) Negative (Negative) Urine Ketones Negative (Negative) Urine Blood Negative (Negative) Urine Nitrite Negative (Negative) Urine Bilirubin Negative (Negative) Urine Urobilinogen Negative (Negative) Ur Leukocyte Esterase Trace H (Negative) Urine WBC (Auto) 1-5 (0-5) /hpf Urine RBC (Auto) 5-10 H (0-4) /hpf U Hyaline Cast (Auto) 1-5 (0-5) /lpf U Epithel Cells (Auto) 20-30 H (0-5) /lpf Urine Bacteria (Auto) Negative (Negative) Influenza Type A (PCR) Neg for Influ A (Neg) Influenza Type B (PCR) Neg for Influ B (Neg) Diagnostic Findings SINGLE VIEW CHEST CLINICAL HISTORY: Dyspnea. FINDINGS: An AP, portable, upright chest radiograph is compared to chest x-ray and chest CT dated 06/14/2019. The examination is degraded by portable technique and patient rotation. The heart is enlarged noting atherosclerotic calcification of the thoracic aorta. The pulmonary vasculature is noncongested. There is a small right pleural effusion with associated atelectasis. The left lung appears clear. No pneumothorax is seen. The skeletal structures are osteopenic. The bony thorax is grossly intact. IMPRESSION: 1. Cardiomegaly without radiographic evidence of congestive failure. 2. Small right pleural effusion with associated atelectasis. ACT 112: Negative or not required by law. Electronically signed by: Allan Jara M.D. 07/12/2019 2:41 PM Dictated: 07/12/19 1439 ECG Additional Comments: The study shows atrial fibrillation at 103 bpm, right axis deviation, QRS = 86, QTc = 479, no acute ischemic changes Code Status & VTE Plan Code Status Full VTE Prophylaxis Plan VTE Prophylaxis will be ordered: Yes PG Care Time/CCT Total # of Minutes Spent Total Time Spent with Patient: Total time spent is greater than 50% in coordination of care (as documented) at patient's floor/unit and/or counseling patient: Coding Level of Care Code 73102 Initial Inpt Care Lvl 3 Diagnoses Atrial fibrillation with RVR I48.91 Fluid overload E87.70 Hypervolemia type: unspecified Hypoxia R09.02 Elevated troponin R79.89 Hypomagnesemia E83.42 CKD (chronic kidney disease) stage 3, GFR 30-59 ml/min N18.3 Depression F33.9 Depression Type: major depressive disorder Major depression recurrence: recurrent Active/Remission status: currently active Major depression episode severity: unspecified Anxiety F41.9 Dementia F03.91 Dementia type: unspecified type Dementia behavioral disturbance: with behavioral disturbance (1) Fluid overload Hypervolemia type: unspecified Qualified Code(s): E87.70 - Fluid overload, unspecified (2) Depression Depression Type: major depressive disorder Major depression recurrence: recurrent Active/Remission status: currently active Major depression episode severity: unspecified Qualified Code(s): F33.9 - Major depressive disorder, recurrent, unspecified (3) Dementia Dementia type: unspecified type Dementia behavioral disturbance: with behavioral disturbance Qualified Code(s): F03.91 - Unspecified dementia with behavioral disturbance
[2019-07-12] MEDS ORDERED: ACETAMINOPHEN 325 MG TAB PO PRN (18:08)
[2019-07-12] MEDS ORDERED: ONDANSETRON INJ 2 MG/ML 2 ML VIAL IV PRN (18:08)
[2019-07-12] MEDS ORDERED: DOCUSATE SODIUM 100 MG CAP PO PRN (18:08)
[2019-07-12 18:52] LABS: Phosphorus 3.8 mg/dl (2.5-4.9)
--- NOTE | 2019-07-12 19:12 | Emergency Department Note ---
Entered by Rafaela Sims acting as a scribe for Escobar Guerrero M.D. History of Present Illness General Chief complaint: Respiratory Problems Time Seen by Provider: 07/12/19 13:20 Source: patient History of Present Illness Provider complaint: Respiratory Problems Onset (ago): week(s) 2 Location: chest Relieved By: + none Exacerbated By: + movement Associated symptoms: + denies other symptoms (Urinary symptoms, tingling or numbness, loss of consciousness ) and + other (Dizzy, pedal edema) The patient is a 73 year old female who presents to the Emergency Room with complaints of respiratory problems that began 2 weeks ago. The patient states that her symptoms are exacerbated by movement and not relieved by anything specific. The patient reports experiencing dizziness and increased pedal edema. The patient denies experiencing any urinary symptoms, loss of consciousness, or tingling and numbness in her extremities. Home Medications Home Medications Medication Instructions Recorded Confirmed Type biotin 1,000 mcg PO QAM #30 tab 05/07/19 07/12/19 Rx folic acid 1 mg PO QAM #30 tab 05/07/19 07/12/19 Rx sertraline 25 mg PO QAM #30 tab 05/07/19 07/12/19 Rx albuterol sulfate [Ventolin HFA] 2 puff INHALATION Q4H PRN 05/21/19 07/12/19 History docusate sodium 100 mg PO QAM 05/29/19 07/12/19 History thiamine HCl (vitamin B1) [Vitamin 100 mg PO QAM 05/29/19 07/12/19 History B-1] Eliquis 2.5 mg PO BID 07/12/19 07/12/19 History furosemide 40 mg PO QAM 07/12/19 07/12/19 History lisinopril 2.5 mg PO QAM 07/12/19 07/12/19 History metoprolol succinate 200 mg PO QAM 07/12/19 07/12/19 History sertraline 50 mg PO QAM 07/12/19 07/12/19 History Allergies Allergy/AdvReac Type Severity Reaction Status Date / Time Penicillins Allergy Unknown CAN'T Verified 07/12/19 13:55 REMEMBER Macrolide Antibiotics Allergy Unknown Verified 07/12/19 13:55 MYCIN FAMILY DRUGS Allergy Unknown CAN'T Uncoded 07/12/19 13:55 REMEMBER-SEE COMMENT Past Med/Surg History Medical History (Updated 07/12/19 @ 16:45 by Ruth Reed DO) Anemia Acute blood loss anemia from right thigh hematoma Anticoagulant long-term use Atrial fibrillation (Inactive) Depression Hx of falling Hypertension (Chronic) Insomnia Mitral regurgitation Pneumonia (Resolved) Surgical History H/O: hysterectomy H/O: hysterectomy Family History Mother , age 70 of uncertain causes No problems noted. Father , The mid-60s of a rare bone cancer No problems noted. 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 Feels Safe at Home: Yes Smoking Status: Former smoker Tobacco Type: cigarettes ; Cigarettes Per Day: Half a pack per day ; Second Hand Exposure: No ; Hx Alcohol Use: No Hx Substance Use: No Review of Systems See HPI for pertinent positives & negatives. and A total of 10 systems reviewed and were otherwise negative Physical Exam Vital Signs Vital Signs - 24 hr 07/12/19 12:32 07/12/19 12:33 07/12/19 12:35 Temperature 36.8 C Temperature Source Oral Pulse Rate 97 H 101 H 90 Pulse Rate [Right Finger] Pulse Rate from SpO2 Sensor 100 H 90 Pulse Rhythm Irregular Pulse Rhythm [Right Finger] Respiratory Rate 34 H 33 H 28 H Respiratory Effort / Characteristics Respiratory Depth Normal Respiratory Pattern Rapid/Shallow Tachypnea Blood Pressure 138/113 H 138/113 H Blood Pressure [Left Arm] Blood Pressure Mean 122 121 Blood Pressure Mean [Left Arm] Blood Pressure Position Lying Pulse Oximetry 94 95 95 Oxygen Delivery Method Room Air Oxygen Flow Rate Sepsis Recent Fever Within 48 Hours No Sepsis Action Taken by Nursing No Action Required Oxygen Flow Rate - Titration Pulse Oximetry Post Tiitration 07/12/19 13:00 07/12/19 13:13 07/12/19 13:25 Temperature Temperature Source Pulse Rate 91 H 95 H Pulse Rate [Right Finger] Pulse Rate from SpO2 Sensor 93 H 107 H Pulse Rhythm Pulse Rhythm [Right Finger] Respiratory Rate 27 H 29 H Respiratory Effort / Characteristics Respiratory Depth Respiratory Pattern Blood Pressure 147/99 H Blood Pressure [Left Arm] Blood Pressure Mean 111 Blood Pressure Mean [Left Arm] Blood Pressure Position Pulse Oximetry 93 96 89 L Oxygen Delivery Method Room Air Nasal Cannula Oxygen Flow Rate Sepsis Recent Fever Within 48 Hours Sepsis Action Taken by Nursing Oxygen Flow Rate - Titration 2 Pulse Oximetry Post Tiitration 94 07/12/19 13:30 07/12/19 13:31 07/12/19 14:00 Temperature Temperature Source Pulse Rate 107 H 96 H 109 H Pulse Rate [Right Finger] Pulse Rate from SpO2 Sensor 102 H 95 H 120 H Pulse Rhythm Pulse Rhythm [Right Finger] Respiratory Rate 35 H 39 H 30 H Respiratory Effort / Characteristics Respiratory Depth Respiratory Pattern Blood Pressure 149/95 H Blood Pressure [Left Arm] Blood Pressure Mean 118 Blood Pressure Mean [Left Arm] Blood Pressure Position Pulse Oximetry 100 97 99 Oxygen Delivery Method Oxygen Flow Rate Sepsis Recent Fever Within 48 Hours Sepsis Action Taken by Nursing Oxygen Flow Rate - Titration Pulse Oximetry Post Tiitration 07/12/19 14:20 07/12/19 14:23 07/12/19 14:30 Temperature Temperature Source Pulse Rate 124 H 102 H Pulse Rate [Right Finger] 103 H Pulse Rate from SpO2 Sensor 118 H 108 H Pulse Rhythm Pulse Rhythm [Right Finger] Irregular Respiratory Rate 26 H 28 H 27 H Respiratory Effort / Characteristics Non-Labored Respiratory Depth Normal Respiratory Pattern Blood Pressure 148/97 H 140/108 H Blood Pressure [Left Arm] 148/97 H Blood Pressure Mean 118 113 Blood Pressure Mean [Left Arm] 114 Blood Pressure Position Pulse Oximetry 97 97 100 Oxygen Delivery Method Nasal Cannula Oxygen Flow Rate 2 Sepsis Recent Fever Within 48 Hours Sepsis Action Taken by Nursing Oxygen Flow Rate - Titration Pulse Oximetry Post Tiitration 07/12/19 14:31 07/12/19 14:45 07/12/19 15:00 Temperature Temperature Source Pulse Rate 105 H 112 H 94 H Pulse Rate [Right Finger] Pulse Rate from SpO2 Sensor 113 H 107 H 93 H Pulse Rhythm Pulse Rhythm [Right Finger] Respiratory Rate 26 H 29 H 30 H Respiratory Effort / Characteristics Respiratory Depth Respiratory Pattern Blood Pressure 138/97 160/98 H Blood Pressure [Left Arm] Blood Pressure Mean 98 121 Blood Pressure Mean [Left Arm] Blood Pressure Position Pulse Oximetry 100 100 100 Oxygen Delivery Method Oxygen Flow Rate Sepsis Recent Fever Within 48 Hours Sepsis Action Taken by Nursing Oxygen Flow Rate - Titration Pulse Oximetry Post Tiitration 07/12/19 15:01 07/12/19 15:15 07/12/19 15:30 Temperature Temperature Source Pulse Rate 102 H 100 H 98 H Pulse Rate [Right Finger] Pulse Rate from SpO2 Sensor 101 H 106 H 105 H Pulse Rhythm Pulse Rhythm [Right Finger] Respiratory Rate 29 H 30 H 27 H Respiratory Effort / Characteristics Respiratory Depth Respiratory Pattern Blood Pressure 149/103 H 146/114 H Blood Pressure [Left Arm] Blood Pressure Mean 114 123 Blood Pressure Mean [Left Arm] Blood Pressure Position Pulse Oximetry 99 98 98 Oxygen Delivery Method Oxygen Flow Rate Sepsis Recent Fever Within 48 Hours Sepsis Action Taken by Nursing Oxygen Flow Rate - Titration Pulse Oximetry Post Tiitration 07/12/19 16:01 Temperature Temperature Source Pulse Rate 100 H Pulse Rate [Right Finger] Pulse Rate from SpO2 Sensor Pulse Rhythm Pulse Rhythm [Right Finger] Respiratory Rate 22 Respiratory Effort / Characteristics Respiratory Depth Respiratory Pattern Blood Pressure 123/100 Blood Pressure [Left Arm] Blood Pressure Mean 106 Blood Pressure Mean [Left Arm] Blood Pressure Position Pulse Oximetry 97 Oxygen Delivery Method Nasal Cannula Oxygen Flow Rate 2 Sepsis Recent Fever Within 48 Hours Sepsis Action Taken by Nursing Oxygen Flow Rate - Titration Pulse Oximetry Post Tiitration GENERAL: Awake, alert, fatigued-appearing, tachypneic HENT: Normocephalic, atraumatic. EYES: Normal conjunctiva. Sclera non-icteric. NECK: Supple. No nuchal rigidity. RESPIRATORY: Diminished lung bases. No wheezes. CARDIAC: Tachycardic rate. Irregular rhythm. Extremities warm and well perfused. GI: Soft, non-distended. No tenderness to palpation. RECTAL: Deferred. MUSCULOSKELETAL: Atraumatic. Chest examination reveals no tenderness. LOWER EXTREMITIES: Calves are equal size bilaterally and non-tender. 2+ LE edema. NEURO: Normal sensorium. No sensory or motor deficits noted. No facial droop. SKIN: Warm and dry. No jaundice noted. Course Course 1325: Past medical records reviewed. The patient was evaluated in room B08. A complete history and physical exam was performed. 1527: I spoke with Dr. Reed- Hospitalist about the patient's case and she will accept the patient for further evaluation. Administered Medications Diltiazem HCl 125 mg/ Dextrose 125 mls @ 5 mls/hr IV .Q24H [facility]; Protocol Stop: 08/11/19 13:44 Last Titration: 07/12/19 14:47 Dose: 10 mg/hr, 10 mls/hr Documented by: [id number] Cosigned by: [id number] Admin: 07/12/19 14:19 Dose: 5 mg/hr, 5 mls/hr Documented by: [id number] Cosigned by: [id number] Discontinued Medications Furosemide (Lasix) 40 mg IV NOW STA Stop: 07/12/19 15:13 Last Admin: 07/12/19 15:46 Dose: 40 mg Documented by: [id number] Magnesium Sulfate/Dextrose (Magnesium Sulfate / D5w) 1 gm in 100 mls @ 100 mls/ hr IV ONE ONE Stop: 07/12/19 16:37 Last Infusion: 07/12/19 18:46 Dose: 0 mls/hr Documented by: [id number] Admin: 07/12/19 16:23 Dose: 100 mls/hr Documented by: [id number] Lorazepam (Ativan) 1 mg in 2 mls @ 2 mls/min IV NOW STA Stop: 07/12/19 16:13 Last Admin: 07/12/19 16:26 Dose: 2 mls/min Documented by: [id number] Lorazepam (Ativan) Confirm Administered Dose 2 mg .ROUTE .STK-MED ONE Stop: 07/12/19 16:21 Last Admin: 07/12/19 16:24 Dose: Not Given Documented by: [id number] Miscellaneous () 1 ea N/A NOW STA Stop: 07/12/19 13:41 Last Admin: 07/12/19 14:19 Dose: 1 ea Documented by: [id number] Medical Decision Making Differential Diagnosis Differential diagnosis: Etiologies such as infections, reactive airway disease, COPD, pneumonia, pleural effusion, pulmonary edema, ARDS, pneumothorax, CHF, cardiac ischemia, cardiac tamponade, dysrhythmia, anemia, pulmonary embolism, musculoskeletal, gastrointestinal process, as well as others were entertained. Medical Records Attestation: I reviewed the patient's medical records. Home Medications Current Medication List: was personally reviewed by me Laboratory Data Attestation: I reviewed the patient's lab results. Result diagrams: 07/12/19 13:53 07/12/19 14:37 Lab Results 07/12/19 07/12/19 07/12/19 Range/Units 13:53 13:53 13:53 WBC 10.62 (4.8-10.8) K/uL RBC 3.88 L (4.2-5.4) M/uL Hgb 11.9 L (12.0-16.0) g/dL Hct 38.1 (37-47) % MCV 98.2 (80-100) fL MCH 30.7 (25-34) pg MCHC 31.2 L (32-36) g/dL RDW Std Deviation 67.9 H (36.4-46.3) fL RDW Coeff of Mario 19.1 H (11.5-14.5) % Plt Count 227 (130-400) K/uL MPV 10.7 H (7.4-10.4) fL Immature Gran % (Auto) 0.2 % Neut % (Auto) 73.4 % Lymph % (Auto) 11.2 % [place] % (Auto) 11.0 % Eos % (Auto) 3.6 % Baso % (Auto) 0.6 % Immature Gran # (Auto) 0.02 (0.00-0.02) K/uL Neut # (Auto) 7.80 H (1.4-6.5) K/uL Lymph # (Auto) 1.19 L (1.2-3.4) K/uL [place] # (Auto) 1.17 H (0.11-0.59) K/uL Eos # (Auto) 0.38 (0-0.5) K/uL Baso # (Auto) 0.06 (0-0.2) K/uL PT 12.7 H (9.0-12.0) Seconds INR 1.3 H (0.9-1.1) APTT 27.6 (21.0-31.0) Seconds PTT Ratio 1.0 Sodium 136 (136-145) mmol/L Potassium (3.5-5.1) mmol/L Chloride 104 (98-107) mmol/L Carbon Dioxide 22 (21-32) mmol/L Anion Gap 9.0 (3-11) BUN 42 H (7-18) mg/dl Creatinine 1.47 H (0.6-1.2) mg/dl Est Cr Clr Drug Dosing 30.4 ml/min Est GFR ( Amer) 41.2 Est GFR (Non-Af Amer) 35.5 BUN/Creatinine Ratio 28.4 H (10-20) Glucose 115 H (70-99) mg/dl Calcium 9.6 (8.5-10.1) mg/dl Phosphorus (2.5-4.9) mg/dl Magnesium (1.8-2.4) mg/dl Total Bilirubin 1.3 H (0.2-1) mg/dl AST (15-37) U/L ALT 13 (12-78) U/L Alkaline Phosphatase 67 (45-117) U/L Troponin I 0.083 H* (0-0.045) ng/ml NT-Pro-B Natriuret Pep > 60808 H (0-900) pg/ml Total Protein 7.3 (6.4-8.2) gm/dl Albumin 3.7 (3.4-5.0) gm/dl Globulin 3.6 (2.5-4.0) gm/dl Albumin/Globulin Ratio 1.0 (0.9-2) Urine Color Urine Appearance (Clear) Urine pH (4.5-7.5) Ur Specific [place] (1.000-1.030) Urine Protein (Negative) Urine Glucose (UA) (Negative) Urine Ketones (Negative) Urine Blood (Negative) Urine Nitrite (Negative) Urine Bilirubin (Negative) Urine Urobilinogen (Negative) Ur Leukocyte Esterase (Negative) Urine WBC (Auto) (0-5) /hpf Urine RBC (Auto) (0-4) /hpf U Hyaline Cast (Auto) (0-5) /lpf U Epithel Cells (Auto) (0-5) /lpf Urine Bacteria (Auto) (Negative) Influenza Type A (PCR) (Neg) Influenza Type B (PCR) (Neg) 07/12/19 07/12/19 07/12/19 Range/Units 13:55 14:37 14:50 WBC (4.8-10.8) K/uL RBC (4.2-5.4) M/uL Hgb (12.0-16.0) g/dL Hct (37-47) % MCV (80-100) fL MCH (25-34) pg MCHC (32-36) g/dL RDW Std Deviation (36.4-46.3) fL RDW Coeff of Mario (11.5-14.5) % Plt Count (130-400) K/uL MPV (7.4-10.4) fL Immature Gran % (Auto) % Neut % (Auto) % Lymph % (Auto) % [place] % (Auto) % Eos % (Auto) % Baso % (Auto) % Immature Gran # (Auto) (0.00-0.02) K/uL Neut # (Auto) (1.4-6.5) K/uL Lymph # (Auto) (1.2-3.4) K/uL [place] # (Auto) (0.11-0.59) K/uL Eos # (Auto) (0-0.5) K/uL Baso # (Auto) (0-0.2) K/uL PT (9.0-12.0) Seconds INR (0.9-1.1) APTT (21.0-31.0) Seconds PTT Ratio Sodium (136-145) mmol/L Potassium 4.3 (3.5-5.1) mmol/L Chloride (98-107) mmol/L Carbon Dioxide (21-32) mmol/L Anion Gap (3-11) BUN (7-18) mg/dl Creatinine (0.6-1.2) mg/dl Est Cr Clr Drug Dosing ml/min Est GFR ( Amer) Est GFR (Non-Af Amer) BUN/Creatinine Ratio (10-20) Glucose (70-99) mg/dl Calcium (8.5-10.1) mg/dl Phosphorus 3.8 (2.5-4.9) mg/dl Magnesium 1.7 L (1.8-2.4) mg/dl Total Bilirubin (0.2-1) mg/dl AST 13 L (15-37) U/L ALT (12-78) U/L Alkaline Phosphatase (45-117) U/L Troponin I (0-0.045) ng/ml NT-Pro-B Natriuret Pep (0-900) pg/ml Total Protein (6.4-8.2) gm/dl Albumin (3.4-5.0) gm/dl Globulin (2.5-4.0) gm/dl Albumin/Globulin Ratio (0.9-2) Urine Color Yellow Urine Appearance Clear (Clear) Urine pH 5.0 (4.5-7.5) Ur Specific [place] 1.013 (1.000-1.030) Urine Protein Negative (Negative) Urine Glucose (UA) Negative (Negative) Urine Ketones Negative (Negative) Urine Blood Negative (Negative) Urine Nitrite Negative (Negative) Urine Bilirubin Negative (Negative) Urine Urobilinogen Negative (Negative) Ur Leukocyte Esterase Trace H (Negative) Urine WBC (Auto) 1-5 (0-5) /hpf Urine RBC (Auto) 5-10 H (0-4) /hpf U Hyaline Cast (Auto) 1-5 (0-5) /lpf U Epithel Cells (Auto) 20-30 H (0-5) /lpf Urine Bacteria (Auto) Negative (Negative) Influenza Type A (PCR) Neg for Influ A (Neg) Influenza Type B (PCR) Neg for Influ B (Neg) Imaging Data Radiologist's Impression: Radiology results as stated below per my review and the radiologist's interpretation: SINGLE VIEW CHEST CLINICAL HISTORY: Dyspnea. FINDINGS: An AP, portable, upright chest radiograph is compared to chest x-ray and chest CT dated 06/14/2019. The examination is degraded by portable technique and patient rotation. The heart is enlarged noting atherosclerotic calcification of the thoracic aorta. The pulmonary vasculature is noncongested. There is a small right pleural effusion with associated atelectasis. The left lung appears clear. No pneumothorax is seen. The skeletal structures are osteopenic. The bony thorax is grossly intact. IMPRESSION: 1. Cardiomegaly without radiographic evidence of congestive failure. 2. Small right pleural effusion with associated atelectasis. ACT 112: Negative or not required by law. Electronically signed by: Allan Jara M.D. 07/12/2019 2:41 PM ECG Data Attestation: I personally reviewed and interpreted this ECG as follows: Indication: + SOB/dyspnea Rate (beats per minute): 103 Rhythm: + atrial fibrillation ECG ST segments: no ST depression and no ST elevation ECG Findings: + Other (Flattening t wave right axis) Blood Pressure Blood Pressure Findings: Elevated blood pressure Blood Pressure Disposition: further management by hospitalist OLI Narrative Patient is a 73-year-old female with extensive past medical history including atrial fibrillation on Eliquis, dementia, tobacco use, CKD, heart failure presenting from her facility today with reports of increased weight gain and lower extremity with now shortness of breath. In a fast A. fib or a flutter when EMS arrived given 10 minutes of Cardizem in route with some improvement. Does endorse a productive cough and also states she feels somewhat anxious. Tachypneic here. Recently was transferred to [facility] with concern for need for dialysis given fluid overload approximately a month ago. Patient ultimately did not need dialysis. States some increased swelling. States her shortness of breath been present for a while but seemed a bit worse today. Patient heart rate is between the high 100s to the 1 teens here (150s + for EMS). Placed on a Cardizem drip (10mg bolus cardizem for EMS). Patient does not require oxygen which is new for her on room air. Patient is on a Eliquis lowering my suspicion for acute PE. Slight hypomagnesemia and given an IV supplemenetation. Likely her symptoms are worsened by uncontrolled atrial fibrillation today providing some CHF exacerbation causing her worsening shortness of breath and hypoxia. Given this believe monitoring in the inpatient unit is reasonable. Discussed with hospitalist. Impression & Plan Atrial fibrillation with RVR, Fluid overload, Hypoxia, Hypomagnesemia Discharge Plan Visit Data *Final* Discharge Date/Time: 07/12/19 17:22 Chief Complaint: Respiratory Problems ED Provider: Escobar Guerrero Discharge Problem: Atrial fibrillation with RVR, Fluid overload, Hypoxia, Hypomagnesemia Patient Disposition: Admitted As Inpatient Discharge Instructions Interventions: ED Discharge Assessment Last Done: 07/12/19 17:22 Discharge Problem: Fluid overload Qualifiers: Hypervolemia type: unspecified Qualified Code(s): E87.70 - Fluid overload, unspecified The scribe's documentation has been prepared under my direction and personally reviewed by me in its entirety. I confirm that the note above accurately refle cts all work, treatment, procedures, and medical decision making performed by me.
[2019-07-12] MEDS: APIXABAN 2.5 MG TAB PO SCH (19:39)
--- NOTE | 2019-07-12 22:19 | Electrocardiogram Report ---
Test Reason : Blood Pressure : / mmHG Vent. Rate : 103 BPM Atrial Rate : 125 BPM P-R Int : 000 ms QRS Dur : 086 ms QT Int : 366 ms P-R-T Axes : 000 093 001 degrees QTc Int : 479 ms Poor data quality, interpretation may be adversely affected Atrial fibrillation with rapid ventricular response Rightward axis Nonspecific ST and T wave abnormality Abnormal ECG When compared with ECG of 14-JUN-2019 08:42, Nonspecific T wave abnormality, improved in Lateral leads Confirmed by Ricky Marcos ([id number]) on 07/12/2019 10:19:01 PM Referred By: Confirmed By:Ricky Marcos
[2019-07-13 07:04] LABS: Basophils # (auto) 0.03 K/uL (0-0.2); Basophils % (auto) 0.3 %; Eosinophils # (auto) 1.14 K/uL (0-0.5); Eosinophils % (auto) 12.8 %; Hematocrit (blood only) 34.3 % (37-47); Hemoglobin 10.9 g/dL (12.0-16.0); Immature Granulocytes # (auto) 0.03 K/uL (0.00-0.02); Immature Granulocytes % (auto) 0.3 %; Lymphocytes # (auto) 1.16 K/uL (1.2-3.4); Mean Corpuscular Hemoglobin 31.3 pg (25-34); Mean Corpuscular Hgb Conc 31.8 g/dL (32-36); Mean Corpuscular Volume 98.6 fL (80-100); Mean Platelet Volume 9.9 fL (7.4-10.4); Monocytes # (auto) 0.86 K/uL (0.11-0.59); Monocytes % (auto) 9.6 %; Platelet Count 186 K/uL (130-400); RDW Coefficient of Variation 18.9 % (11.5-14.5); Red Blood Count 3.48 M/uL (4.2-5.4); White Blood Count 8.92 K/uL (4.8-10.8)
[2019-07-13 07:45] LABS: BUN Creatinine Ratio 32.4 (10-20); Bilirubin Direct 0.2 mg/dl (0-0.2); Bilirubin,Total 1.1 mg/dl (0.2-1); Calcium 9.3 mg/dl (8.5-10.1); Creatinine Clr Calc Pharmacy 34.3 ml/min; Est GFR (African American) 53.2; Est GFR (Non-African American) 45.9; Potassium 3.5 mmol/L (3.5-5.1)
[2019-07-13] MEDS: THIAMINE HCL 100 MG TAB PO SCH (08:51)
[2019-07-13] MEDS: APIXABAN 2.5 MG TAB PO SCH ×2 (08:51→21:18)
[2019-07-13] MEDS: METOPROLOL SUCC 50MG EXT REL TAB PO SCH (08:52)
[2019-07-13] MEDS: SERTRALINE HCL 50 MG TABLET PO SCH ×2 (08:54→08:55)
[2019-07-13] MEDS: FOLIC ACID 1 MG TAB PO SCH (08:54)
[2019-07-13] MEDS: FUROSEMIDE 40 MG TAB PO SCH (08:54)
--- NOTE | 2019-07-13 14:15 | Hospitalist Progress Note ---
Date of Service July 13, 2019 Assessment & Plan (1) Atrial fibrillation with RVR: Patient presenting in atrial fibrillation with rapid ventricular response. Diltiazem drip initiated in the ER, but brought her down to the 50-60 range. - Discussed with [facility] cardiology on 07/13. She had just seen Dr. Butcher in clinic. She had been going fast there, and he started digoxin which it is unclear if she was ever started on. Continue home metoprolol Continue home Eliquis - Get stat digoxin level and will load with digoxin if her level is negative. (2) Fluid overload: Acute on chronic diastolic CHF. [facility] states that patient gained 5 pounds in the last day. She is quite short of breath. BNP is elevated over 35,000. Chest x-ray does not support findings of CHF. On clinical exam she does have bibasilar crackles and some trace pitting edema but does not, overall seem to be in florid failure. Weight by our record (consider possibility of different scale, clothing, bedding) with 62 kg today. She was 70.4 kg on d ischarge 06/14/2019. Possibly some mild fluid overload in setting of A. fib with RVR. She was given 40 mg of Lasix IV in the ER. Echo was Monitor strict intake and output, daily weights Continue home Lasix 40 mg PO daily - On 07/13, she is down to 57.9 kg. No shortness of breath. HR is down at this point. (3) Hypoxia: Patient with new oxygen requirement, presently on 2 L nasal cannula with adequate saturation. She is quite anxious and tachypneic. Treatment of A. fib and volume overload as above Wean O2 as able (4) Elevated troponin: Troponin = 0.083. Demand ischemia. Patient denies chest pain, no EKG evidence consistent with acute ischemia. Repeat was 0.06. No further trending. Follow up with Dr. Butcher outpatient. (5) CKD (chronic kidney disease) stage 3, GFR 30-59 ml/min: Baseline creatinine = 1.2 - 1.47, eGFR 45. - Monitor Cr -> Stable at 1.2 today. (6) Depression: Patient with history of major depressive disorder, acutely worsened after the loss of her . She has history of heavy alcohol consumption in the setting of grief. She is quite anxious today. Continue sertraline at home dose (7) Anxiety: Anxious on presentation; much less so on my exam on 07/13. I do think her anxiety is playing a role in her shortness of breath as she reports asking for her albuterol every 1-2 hours at her assisted living facility. Continue sertraline at home dose of 75 mg p.o. every morning Trial hydroxyzine 25 mg p.o. every 6 hours as needed for anxiety (8) Hypertension: BP is 120/80 today. 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 I (John Hernandez) took care of her about 1 year ago when she was a very heavy drinker and went through significant withdrawal and confusion in the hospital. Continue p.o. thiamine 100 mg daily Delirium prevention strategies with frequent orientation, maintenance of sleep/wake cycle and avoidance of delirium producing medications (10) DVT prophylaxis: On apixaban for her afib Admission and Anticipated Discharge Date Admission Date: July 12, 2019 Subjective Doing well today. She denies any shortness of breath which was the main reason she reports she came to the hospital. Reports no fevers/chills, chest pain, abdominal pain, nausea, or vomiting. Physical Exam Constitutional: WD/WN, vitals as above Eyes: EOM intact bilaterally; no conjunctival abnormality ENMT: external ear and nose normal, oropharynx normal Neck: trachea midline, no thyromegaly normal visual inspection Respiratory: normal respiratory effort, lungs clear to auscultation no respiratory distress Cardiovascular: RRR, no murmur, no edema Gastrointestinal (Abdomen): Inspection/Auscultation: abdomen normal to inspection; abdomen not distended Musculoskeletal: no cyanosis or clubbing, extremities motor strength 5/5 Skin: no rashes, warm and dry Neurologic: moves all extremities and awake Psychiatric: Orientation: alert, oriented to person and cooperative Results & Data ([facility]) Vital Signs (Past 12 Hours) Vital Signs Temp Pulse Resp BP Pulse Ox 07/13/19 12:45 72 117/79 07/13/19 11:07 68 97/63 L 07/13/19 10:56 36.4 C L 64 20 101/70 95 07/13/19 08:56 71 115/71 07/13/19 07:03 36.5 C 72 18 113/72 95 07/13/19 02:42 36.6 C 79 20 106/77 2 L PG Care Time/CCT Total # of Minutes Spent Total Time Spent with Patient: Total time spent is greater than 50% in coordination of care (as documented) at patient's floor/unit and/or counseling patient: Coding Level of Care Code 53116 Subseq Hosp Care Lvl 3 Diagnoses Atrial fibrillation with RVR I48.91 Fluid overload E87.70 Hypervolemia type: unspecified Hypoxia R09.02 Elevated troponin R79.89 CKD (chronic kidney disease) stage 3, GFR 30-59 ml/min N18.3 Depression F33.9 Depression Type: major depressive disorder Major depression recurrence: recurrent Active/Remission status: currently active Major depression episode severity: unspecified Anxiety F41.9 Hypertension I10 Hypertension type: essential hypertension Dementia F03.91 Dementia type: unspecified type Dementia behavioral disturbance: with behavioral disturbance DVT prophylaxis Z29.9 (1) Fluid overload Hypervolemia type: unspecified Qualified Code(s): E87.70 - Fluid overload, unspecified (2) Depression Depression Type: major depressive disorder Major depression recurrence: recurrent Active/Remission status: currently active Major depression episode severity: unspecified Qualified Code(s): F33.9 - Major depressive disorder, recurrent, unspecified (3) Dementia Dementia type: unspecified type Dementia behavioral disturbance: with behavioral disturbance Qualified Code(s): F03.91 - Unspecified dementia with behavioral disturbance (4) Hypertension Hypertension type: essential hypertension Qualified Code(s): I10 - Essential (primary) hypertension
[2019-07-13] MEDS: DIGOXIN 0.125 MG TAB PO SCH (16:31)
[2019-07-14 06:08] LABS: Hematocrit (blood only) 36.4 % (37-47); Hemoglobin 11.6 g/dL (12.0-16.0); Mean Corpuscular Hemoglobin 31.2 pg (25-34); Mean Corpuscular Hgb Conc 31.9 g/dL (32-36); Mean Corpuscular Volume 97.8 fL (80-100); Mean Platelet Volume 10.1 fL (7.4-10.4); Platelet Count 181 K/uL (130-400); RDW Coefficient of Variation 18.6 % (11.5-14.5); RDW Standard Deviation 66.8 fL (36.4-46.3); Red Blood Count 3.72 M/uL (4.2-5.4); White Blood Count 7.76 K/uL (4.8-10.8)
[2019-07-14 07:12] LABS: BUN Creatinine Ratio 34.5 (10-20); Calcium 9.2 mg/dl (8.5-10.1); Creatinine Clr Calc Pharmacy 35.8 ml/min; Est GFR (Non-African American) 48.3; Magnesium 1.6 mg/dl (1.8-2.4); Potassium 3.4 mmol/L (3.5-5.1)
[2019-07-14 07:22] LABS: Phosphorus 2.7 mg/dl (2.5-4.9)
[2019-07-14] MEDS: APIXABAN 2.5 MG TAB PO SCH ×2 (07:52→19:49)
[2019-07-14] MEDS: FUROSEMIDE 40 MG TAB PO SCH (07:53)
[2019-07-14] MEDS: THIAMINE HCL 100 MG TAB PO SCH (07:53)
[2019-07-14] MEDS: SERTRALINE HCL 50 MG TABLET PO SCH ×2 (07:54→07:55)
[2019-07-14] MEDS: FOLIC ACID 1 MG TAB PO SCH (07:54)
[2019-07-14] MEDS: METOPROLOL SUCC 50MG EXT REL TAB PO SCH (07:55)
[2019-07-14] MEDS ORDERED: POTASSIUM CHLORIDE 20 MEQ TABCR PO STA (08:11)
[2019-07-14] MEDS: MAGNESIUM SULFATE / D5W 1 GM/100 ML BAG IV SCH ×2 (08:58→10:04)
--- NOTE | 2019-07-14 15:14 | Hospitalist Progress Note ---
Date of Service July 14, 2019 Assessment & Plan (1) Atrial fibrillation with RVR: Patient presenting in atrial fibrillation with rapid ventricular response. Diltiazem drip initiated in the ER, but brought her down to the 50-60 range. - Discussed with [facility] cardiology (Dr. Mcclendon) on 07/13. She had just seen Dr. Butcher in clinic. She had been going fast there, and he started digoxin. Continue home metoprolol Continue home Eliquis - Digoxin level was 0.3. Started digoxin on 07/13. Given her CKD, I did not want to load her heavily. HR is coming down, but still 90-110. If felt to be needed, can consult Dr. Butcher on Monday, but I think she is trending in the right direction. (2) Fluid overload: Acute on chronic diastolic CHF. Possibly some mild fluid overload in setting of A. fib with RVR. She was given 40 mg of Lasix IV in the ER. Echo in 05/2019 showed EF 40-45% with global hypokinesis. Monitor strict intake and output, daily weights - On 07/14, weight is 58.1 kg. No shortness of breath. No swelling. No crackles in bases. I believe she is euvolemic today (07/14). Continue home Lasix 40 mg PO daily (3) Hypoxia: Patient with new oxygen requirement, presently on 2 L nasal cannula with adequate saturation. She was quite anxious and tachypneic on admission. Treatment of A. fib and volume overload as above Wean O2 as able -> Now on room air. (4) Elevated troponin: Troponin = 0.083. Demand ischemia. Patient denies chest pain, no EKG evidence consistent with acute ischemia. Repeat was 0.06. No further trending. Follow up with Dr. Butcher outpatient. (5) CKD (chronic kidney disease) stage 3, GFR 30-59 ml/min: Baseline creatinine = 1.2 - 1.47, eGFR 45. - Monitor Cr -> Stable at 1.15 today. (6) Depression: Patient with history of major depressive disorder, acutely worsened after the loss of her . She has history of heavy alcohol consumption in the setting of grief. She is less anxious today. Good spirits. Continue sertraline at home dose (7) Anxiety: Anxious on presentation; much less so on my exam on 07/13. I do think her anxiety is playing a role in her shortness of breath as she reports asking for her albuterol every 1-2 hours at her assisted living facility. Continue sertraline at home dose of 75 mg p.o. every morning Trial hydroxyzine 25 mg p.o. every 6 hours as needed for anxiety (8) Hypertension: BP is 120/80 today. 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 I (John Hernandez) took care of her about 1 year ago when she was a very heavy drinker and went through significant withdrawal and confusion in the hospital. Continue p.o. thiamine 100 mg daily Delirium prevention strategies with frequent orientation, maintenance of sleep/wake cycle and avoidance of delirium producing medications - No confusion/delirium so far this admission. (10) DVT prophylaxis: On apixaban for her afib Admission and Anticipated Discharge Date Admission Date: July 12, 2019 Anticipated date of discharge: 07/15/19 Subjective Feels quite well today. She has no shortness of breath, no major concerns. She has not had palpitations with moving around. Reports no fevers/chills, chest pain, shortness of breath, abdominal pain, nausea, or vomiting. Physical Exam Constitutional: WD/WN, vitals as above Eyes: EOM intact bilaterally; no conjunctival abnormality ENMT: external ear and nose normal, oropharynx normal Neck: trachea midline, no thyromegaly normal visual inspection Respiratory: normal respiratory effort, lungs clear to auscultation no respiratory distress Cardiovascular: Rate/Rhythm: + tachycardic and + irregularly irregular Heart Sounds: normal S1 and normal S2 Vessels: no JVD Extremities: no edema Gastrointestinal (Abdomen): Inspection/Auscultation: abdomen normal to inspection; abdomen not distended Musculoskeletal: no cyanosis or clubbing, extremities motor strength 5/5 Skin: no rashes, warm and dry Neurologic: moves all extremities and awake Psychiatric: Orientation: alert, oriented to person and cooperative Results & Data ([facility]) Vital Signs (Past 12 Hours) Vital Signs Temp Pulse Resp BP BP Pulse Ox 07/14/19 10:36 36.9 C 92 H 20 129/77 95 07/14/19 07:34 36.6 C 97 H 20 125/104 H 93 07/14/19 05:00 137/89 07/14/19 04:53 36.6 C 71 16 149/98 H 94 PG Care Time/CCT Total # of Minutes Spent Total Time Spent with Patient: Total time spent is greater than 50% in coordination of care (as documented) at patient's floor/unit and/or counseling patient: Coding Level of Care Code 64347 Subseq Hosp Care Lvl 3 Diagnoses Atrial fibrillation with RVR I48.91 Fluid overload E87.70 Hypervolemia type: unspecified Hypoxia R09.02 Elevated troponin R79.89 CKD (chronic kidney disease) stage 3, GFR 30-59 ml/min N18.3 Depression F33.9 Depression Type: major depressive disorder Major depression recurrence: recurrent Active/Remission status: currently active Major depression episode severity: unspecified Anxiety F41.9 Hypertension I10 Hypertension type: essential hypertension Dementia F03.91 Dementia type: unspecified type Dementia behavioral disturbance: with behavioral disturbance DVT prophylaxis Z29.9 (1) Fluid overload Hypervolemia type: unspecified Qualified Code(s): E87.70 - Fluid overload, unspecified (2) Depression Depression Type: major depressive disorder Major depression recurrence: recurrent Active/Remission status: currently active Major depression episode severity: unspecified Qualified Code(s): F33.9 - Major depressive disorder, recurrent, unspecified (3) Hypertension Hypertension type: essential hypertension Qualified Code(s): I10 - Essential (primary) hypertension (4) Dementia Dementia type: unspecified type Dementia behavioral disturbance: with behavioral disturbance Qualified Code(s): F03.91 - Unspecified dementia with behavioral disturbance
[2019-07-14] MEDS: DIGOXIN 0.125 MG TAB PO SCH (15:18)
[2019-07-15 08:10] LABS: Calcium 9.3 mg/dl (8.5-10.1); Creatinine Clr Calc Pharmacy 35.2 ml/min; Est GFR (African American) 54.9; Est GFR (Non-African American) 47.3; Magnesium 1.9 mg/dl (1.8-2.4)
[2019-07-15] MEDS: FUROSEMIDE 40 MG TAB PO SCH (09:25)
[2019-07-15] MEDS: THIAMINE HCL 100 MG TAB PO SCH (09:25)
[2019-07-15] MEDS: APIXABAN 2.5 MG TAB PO SCH ×2 (09:26→20:50)
[2019-07-15] MEDS: SERTRALINE HCL 50 MG TABLET PO SCH ×2 (09:26)
[2019-07-15] MEDS: METOPROLOL SUCC 50MG EXT REL TAB PO SCH (09:26)
[2019-07-15] MEDS: FOLIC ACID 1 MG TAB PO SCH (09:26)
--- NOTE | 2019-07-15 15:09 | Cardiology Consultation ---
Date of Consultation July 15, 2019 Assessment & Plan (1) Atrial fibrillation with RVR: Patient is a 73-year-old female with complex history of note. She has had difficulties with atrial fibrillation with chronically elevated heart rates. She was recently seen for the very first time by Dr. Butcher on 07/11/2019 and begun on digoxin and addition to high-dose Toprol. Patient's had a variable degree of LV dysfunction by past multiple echocardiograms as well as moderate to severe mitral insufficiency depending on hemodynamic state. Patient currently is comfortable in no acute volume overload detected by examination though patient has apparently responded to IV diuretics x1 since ad mission Recommendations: Continue outpatient medications with increase in metoprolol succinate to 200 mg a.m. 50 mg p.m. Continue low-dose digoxin. We will likely repeat echocardiogram in a.m. once heart rate further slowed. Reassess LV systolic function and degree of mitral insufficiency Continue chronic anticoagulation with Eliquis as ordered We will follow with patient in hospital thank you (2) Fluid overload: (3) Mitral regurgitation: History of Present Illness Reason for Consultation: Atrial fibrillation with elevated ventricular response rate Requesting Physician: Dr. Whittington Attending Physician: Dedrick Whittington History of Present Illness Patient is a complex 73-year-old female with ongoing issues which include 1. 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 Questionable cardiomyopathy per [facility] EF 40% however resting echocardiogram reported EF of 60 65% 3. Chronic atrial fibrillation on chronic Eliquis anticoagulation for dose recently reduced due to renal function and weight 4. Moderate to severe mitral regurgitation 5. Pulmonary hypertension 6. History of benzodiazepine addiction 7. History of tobacco abuse 8. Hypertension 9. Questionable ambulatory dysfunction 10. Chronic venous insufficiency Patient presents this admission having been referred from [facility] where she resides. Per patient who is a rather poor historian and review of records she had symptoms of increasing dyspnea and lower extremity edema. Patient denied symptoms of chest pains dizziness or lightheadedness though again a poor historian. Notes no recent fevers chills or infections. Appetite and weight per patient have been stable she notes her legs are swollen but currently are soft. Is not aware of any tachypalpitations or arrhythmias. No history of syncope or near syncope. Patient has manifested a loose cough x1 to 2 weeks. Since admission patient received IV furosemide 40 mg x 1 and transient treatment with IV diltiazem. Heart rates have been variable but chronically elevated as per past admissions Currently she denies any complaints, not aware of elevated heart rates Allergies Allergy/AdvReac Type Severity Reaction Status Date / Time Penicillins Allergy Unknown CAN'T Verified 07/12/19 13:55 REMEMBER Macrolide Antibiotics Allergy Unknown Verified 07/12/19 13:55 [facility] [employer] Allergy Unknown CAN'T Uncoded 07/12/19 13:55 REMEMBER-SEE COMMENT Home Medications Home Medications Medication Instructions Recorded Confirmed Type biotin 1,000 mcg PO QAM #30 tab 05/07/19 07/12/19 Rx folic acid 1 mg PO QAM #30 tab 05/07/19 07/12/19 Rx sertraline 25 mg PO QAM #30 tab 05/07/19 07/12/19 Rx albuterol sulfate [Ventolin HFA] 2 puff INHALATION Q4H PRN 05/21/19 07/12/19 History docusate sodium 100 mg PO QAM 05/29/19 07/12/19 History thiamine HCl (vitamin B1) [Vitamin 100 mg PO QAM 05/29/19 07/12/19 History B-1] Eliquis 2.5 mg PO BID 07/12/19 07/12/19 History furosemide 40 mg PO QAM 07/12/19 07/12/19 History lisinopril 2.5 mg PO QAM 07/12/19 07/12/19 History metoprolol succinate 200 mg PO QAM 07/12/19 07/12/19 History sertraline 50 mg PO QAM 07/12/19 07/12/19 History Patient History Medical History Anemia Acute blood loss anemia from right thigh hematoma Anticoagulant long-term use Atrial fibrillation (Inactive) Depression Hx of falling Hypertension (Chronic) Insomnia Mitral regurgitation Pneumonia (Resolved) Surgical History H/O: hysterectomy H/O: hysterectomy Family History Mother , age 70 of uncertain causes No problems noted. Father , The mid-60s of a rare bone cancer No problems noted. 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 Feels Safe at Home: Yes Smoking Status: Former smoker Tobacco Type: cigarettes ; Cigarettes Per Day: Half a pack per day ; Second Hand Exposure: No ; Hx Alcohol Use: No Hx Substance Use: No Physical Exam Constitutional: + thin; no acute distress Eyes: PERRL, conjunctivae normal, anicteric sclerae ENMT: external ear and nose normal, oropharynx normal Neck: trachea midline, no thyromegaly Respiratory: Auscultation: + diminished lung sounds (But clear to auscultation) Cardiovascular: Rate/Rhythm: + tachycardic and + irregularly irregular Heart Sounds: normal S1 and normal S2; no gallop and no murmur Palpation: normal PMI Vessels: normal carotid upstroke and radial pulses present; no JVD and no carotid bruit Extremities: no edema Gastrointestinal (Abdomen): normal bowel sounds, soft, nontender, no hepatosplenomegaly Musculoskeletal: no cyanosis or clubbing, extremities motor strength 5/5 Skin: no rashes, warm and dry Neurologic: PERRL, EOMI, accommodation nl, no face palsy, no dysarthria Psychiatric: A+Ox3, euthymic affect Results & Data ([facility]) Vital Signs (Past 12 Hours) Vital Signs Temp Pulse Resp BP Pulse Ox 07/15/19 11:03 36.5 C 105 H 18 131/94 95 07/15/19 07:34 36.5 C 91 H 18 157/104 H 94 07/15/19 04:24 36.4 C L 102 H 18 139/81 93 Laboratory Results Laboratory Results - last 24 hr 07/15/19 07:16 Sodium 138 Potassium 4.0 D Chloride 102 Carbon Dioxide 30 Anion Gap 7.0 BUN 37 H Creatinine 1.16 Est Cr Clr Drug Dosing 35.2 Est GFR ( Amer) 54.9 Est GFR (Non-Af Amer) 47.3 BUN/Creatinine Ratio 32.0 H Glucose 89 Calcium 9.3 Magnesium 1.9 (1) Fluid overload Hypervolemia type: unspecified Qualified Code(s): E87.70 - Fluid overload, unspecified
[2019-07-15] MEDS: DIGOXIN 0.125 MG TAB PO SCH (17:10)
[2019-07-15] MEDS ORDERED: METOPROLOL SUCC 50MG EXT REL TAB PO SCH (21:00)
--- NOTE | 2019-07-15 21:25 | Hospitalist Progress Note ---
Date of Service July 15, 2019 Assessment & Plan (1) Atrial fibrillation with RVR: Patient presenting in atrial fibrillation with rapid ventricular response. Diltiazem drip initiated in the ER, but brought her down to the 50-60 range. - Discussed with [facility] cardiology (Dr. Mcclendon) on 07/13. She had just seen Dr. Butcher in clinic. She had been going fast there, and he started digoxin. Continue home metoprolol Continue home Eliquis - Digoxin level was 0.3. Started digoxin on 07/13. Given her CKD, I did not want to load her heavily. HR is still elevated. (2) Fluid overload: Acute on chronic diastolic CHF. Possibly some mild fluid overload in setting of A. fib with RVR. She was given 40 mg of Lasix IV in the ER. Echo in 05/2019 showed EF 40-45% with global hypokinesis. Monitor strict intake and output, daily weights - On 07/14, weight is 58.1 kg. No shortness of breath. No swelling. No crackles in bases. I believe she is euvolemic today (07/15). Continue home Lasix 40 mg PO daily (3) Hypoxia: Patient with new oxygen requirement, presently on 2 L nasal cannula with adequate saturation. She was quite anxious and tachypneic on admission. Treatment of A. fib and volume overload as above Wean O2 as able -> Now on room air. (4) Elevated troponin: Troponin = 0.083. Demand ischemia. Patient denies chest pain, no EKG evidence consistent with acute ischemia. Repeat was 0.06. No further trending. Follow up with Dr. Butcher outpatient. (5) CKD (chronic kidney disease) stage 3, GFR 30-59 ml/min: Baseline creatinine = 1.2 - 1.47, eGFR 45. - Monitor Cr -> Stable (6) Depression: Patient with history of major depressive disorder, acutely worsened after the loss of her . She has history of heavy alcohol consumption in the setting of grief. She is less anxious today. Good spirits. Continue sertraline at home dose (7) Anxiety: Anxious on presentation; much less so on my exam on 07/13. I do think her anxiety is playing a role in her shortness of breath as she reports asking for her albuterol every 1-2 hours at her assisted living facility. Continue sertraline at home dose of 75 mg p.o. every morning Trial hydroxyzine 25 mg p.o. every 6 hours as needed for anxiety (8) Hypertension: BP is 120/80 today. 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 I (John Hernandez) took care of her about 1 year ago when she was a very heavy drinker and went through significant withdrawal and confusion in the hospital. Continue p.o. thiamine 100 mg daily Delirium prevention strategies with frequent orientation, maintenance of sleep/wake cycle and avoidance of delirium producing medications - No confusion/delirium so far this admission. (10) DVT prophylaxis: On apixaban for her afib Admission and Anticipated Discharge Date Admission Date: July 12, 2019 Anticipated date of discharge: 07/15/19 Subjective Patient reports feeling well. She has no new complaints. Review of Systems Review of Systems: All systems reviewed & are unremarkable except as noted in HPI & below Physical Exam Physical Exam: Constitutional: WD/WN, vitals as above Eyes: EOM intact bilaterally; no conjunctival abnormality ENMT: external ear and nose normal, oropharynx normal Neck: trachea midline, no thyromegaly normal visual inspection Respiratory: normal respiratory effort, lungs clear to auscultation no respiratory distress Cardiovascular: Rate/Rhythm: + tachycardic and + irregularly irregular Heart Sounds: normal S1 and normal S2 Vessels: no JVD Extremities: no edema Gastrointestinal (Abdomen): Inspection/Auscultation: abdomen normal to inspection; abdomen not distended Musculoskeletal: no cyanosis or clubbing, extremities motor strength 5/5 Skin: no rashes, warm and dry Neurologic: moves all extremities and awake Psychiatric: Orientation: alert, oriented to person and cooperative Results & Data ([facility]) Vital Signs (Past 12 Hours) Vital Signs Temp Pulse Pulse Resp BP BP Pulse Ox 07/15/19 19:24 36.9 C 97 H 16 121/69 95 07/15/19 17:10 77 07/15/19 15:34 37.3 C 92 H 18 106/82 94 07/15/19 11:03 36.5 C 105 H 18 131/94 95 PG Care Time/CCT Total # of Minutes Spent Total Time Spent with Patient: Total time spent is greater than 50% in coordination of care (as documented) at patient's floor/unit and/or counseling patient: Coding Level of Care Code 87222 Subseq Hosp Care Lvl 3 Diagnoses Atrial fibrillation with RVR I48.91 Fluid overload E87.70 Hypervolemia type: unspecified Hypoxia R09.02 Elevated troponin R79.89 CKD (chronic kidney disease) stage 3, GFR 30-59 ml/min N18.3 Depression F33.9 Active/Remission status: currently active Depression Type: major depressive disorder Major depression episode severity: unspecified Major depression recurrence: recurrent Anxiety F41.9 Hypertension I10 Hypertension type: essential hypertension Dementia F03.91 Dementia behavioral disturbance: with behavioral disturbance Dementia type: unspecified type DVT prophylaxis Z29.9 Time Spent (min) 35 (1) Dementia Dementia behavioral disturbance: with behavioral disturbance Dementia type: unspecified type Qualified Code(s): F03.91 - Unspecified dementia with behavioral disturbance (2) Depression Active/Remission status: currently active Depression Type: major depressive disorder Major depression episode severity: unspecified Major depression recurrence: recurrent Qualified Code(s): F33.9 - Major depressive disorder, recurrent, unspecified (3) Hypertension Hypertension type: essential hypertension Qualified Code(s): I10 - Essential (primary) hypertension (4) Fluid overload Hypervolemia type: unspecified Qualified Code(s): E87.70 - Fluid overload, unspecified
[2019-07-16] MEDS: SERTRALINE HCL 50 MG TABLET PO SCH ×2 (08:19)
[2019-07-16] MEDS: FUROSEMIDE 40 MG TAB PO SCH (08:19)
[2019-07-16] MEDS: THIAMINE HCL 100 MG TAB PO SCH (08:20)
[2019-07-16] MEDS: METOPROLOL SUCC 50MG EXT REL TAB PO SCH ×2 (08:20→20:17)
[2019-07-16] MEDS: FOLIC ACID 1 MG TAB PO SCH (08:20)
[2019-07-16] MEDS: APIXABAN 2.5 MG TAB PO SCH ×2 (08:20→20:15)
--- NOTE | 2019-07-16 09:56 | Cardiology Progress Note ---
Date of Service July 16, 2019 Assessment & Plan (1) Atrial fibrillation with RVR: Mrs. Bradley is a 73-year-old female with a history of Hypertension, Alcoholism with ? Alcohol Related Dementia, Anxiety, Depression, Tobacco Use, CKD, COPD, history of Atrial Tachycardia, Moderate to Severe Mitral Regurgitation, Cardiomyopathy, Chronic Diastolic CHF, and Permanent Atrial Fibrillation with V- rates currently in the 95 to 110 while lying in bed who appears euvolemic at the present time, but was likely volume overloaded on initial presentation (hypoxic, elevated Pro-BNP > 33856 pg/ml). She has a negative fluid balance of 2781 ml thus far and is significantly less symptomatic. Patient has had a variable degree of LV dysfunction on multiple prior Echocardiograms, as well as moderate to severe mitral regurgitation depending on her hemodynamic state. She apparently had a FARHAN recently at an outside facility that showed an EF of 40%, but another recent TTE showing an LVEF > 65% (I don't have either of these reports). At this point -- patient is still tachycardic at a state of rest - so better rate control is needed. -- Increase Metoprolol Succinate ER to 200 mg q am and 100 mg q pm. -- Continue Digoxin 125 mcg daily. -- Continue Eliquis 2.5 mg b.i.d.. -- After rate is better controlled would repeat Echo to assess LV systolic function and degree of MR. -- Continue Lisinopril 2.5 mg for her LV systolic dysfunction. (2) Fluid overload: Patient currently appears euvolemic. -- Continue oral Lasix 40 mg daily. -- Continue to monitor I&O's and body weights. -- Maintain a 2 gram low sodium diet. -- This is less likely to recur if we can control her HR in A-Fib. (3) Mitral regurgitation: Moderate to severe MR on recent Echocardiograms. -- After V-rate is controlled would recommend repeat Echocardiogram to assess severity of MR. (4) Elevated troponin: Likely related to A-Fib with RVR, hypoxia, +/- renal dysfunction. -- Does not appear to be an ACS. -- Continue medications as outlined above. (5) Chronic diastolic heart failure: -- As outlined above. Admission and Anticipated Discharge Date Admission Date: July 12, 2019 Anticipated date of discharge: 07/15/19 Supervising Physician Co-Signing Physician Notes Oern Montgomery MD Subjective Mrs. Bradley is a 73-year-old female with a history of Hypertension, Alcoholism with ? Alcohol Related Dementia, Anxiety, Depression, Tobacco Use, CKD, COPD, history of Atrial Tachycardia, Moderate to Severe Mitral Regurgitation, Car diomyopathy, Chronic Diastolic CHF, and Permanent Atrial Fibrillation currently with RVR. Patient has had a variable degree of LV dysfunction on past multiple Echocardiograms, as well as moderate to severe mitral regurgitation depending on her hemodynamic state. Patient is currently staying at [facility] and complained of worsening dyspnea, leg swelling, weight gain in the days leading up to this admission. When her symptoms progressively worsened and her body weight was up an additional 5 pounds in the 24 hours before admission -- she was brought to [facility] ER on 07/12/2019 for further evaluation and admission. She was tachycardic and hypoxemic in the ER with an SpO2 of 89%. Pro-BNP elevated at > 35,000 pg/ml and initial Troponin I level was 0.083 and that has trended down to 0.065 ng/ml. CXR showed Cardiomegaly and a small pleural effusion -- but no otis evidence of pulmonary edema. She was given supplemental O2 and was also given a dose of Lasix 40 mg IV -- with improvement of her symptoms. Patient was started IV Diltiazem which did bring her HR down and she was maintained on her oral Toprol XL 200 mg a day. Toprol XL was subsequently increased to 200 mg every morning and 50 mg at night as of 07/15/2019. Digoxin 125 mcg daily was started on 07/11/2019 as an outpatient -- and a Digoxin Level drawn on 07/13/2019 was expectedly subtherapeutic at 0.3 ng/ml. At the present time patient is lying in bed in room 212 and she offers no complaints. Her breathing is much better but her feet and ankles are still swollen. She denies any chest pain or discomfort leading up to this admission. She denies any neck, jaw, back, or arm pain leading up to or since being admitted. She further denies any nausea, vomiting, or diaphoresis. Patient denies any exertional chest pain, heaviness, tightness, pressure, or discomfort. She denies any exertional neck, jaw, back, or arm pain. She denies any sensation of palpitations or that her heart is racing. Denies any syncope or n ear-syncope. Patient has not had any signs or symptoms suggestive of stroke or mini stroke. Patient has been compliant with her medications and denies any adverse side effects. She specifically denies any bleeding complications related to Eliquis therapy -- but her Eliquis was recently reduced to 2.5 mg b.i.d. because of her body weight and worsening renal function. Patient has had the following Cardiac Procedures / Studies: ECHOCARDIOGRAM 06/09/2019: -- Normal LV size with mild to moderately reduced LV systolic function. -- LVEF 40% to 45% with global hypokinesis. -- Moderate MR with a posteriorly directed MR jet. -- Moderate TR. ECHOCARDIOGRAM 05/03/2019: -- LVEF 45% to 50%. -- Moderate MR. EKG 07/24/2018: -- AFib with RVR 135 bpm. -- Nonspecific ST/T-wave abnormality. -- Compared to prior ECG on 04/06/2018, atrial fibrillation has replaced sinus rhythm. Head CT 07/24/2018: -- Chronic small-vessel ischemic change per Radiology. -- No acute intracranial abnormality. Holter 06/01/2018: -- Sinus rhythm average heart rate 85, ranging 63-127. -- Occasional PACs and PVCs. -- One ventricular triplet. -- Nonsustained episodes of atrial tachycardia up to 14 beats. Echocardiogram 04/06/2018: -- Normal LV size, wall motion, systolic function. -- LVEF 65% to 70%. -- Mild to moderate concentric LVH. -- Mild MR. -- RVSP 37 mmHg. HISTORICAL BACKGROUND: Patient was initially diagnosed with Rapid A-Fib in July 24, 2018 in the presence of a marked Hypokalemia (Serum K level 2.8 mmol/L) following a mechanical fall. Patient did not have any symptoms even while she was in rapid atrial fibrillation. She was initially treated using beta-blockers and calcium channel blockers. She was also placed on Eliquis due to her elevated [id number] score of 4. Physical Exam Physical Exam: GENERAL: Patient in no acute distress. HEENT: Head is atraumatic, normocephalic. EOM's intact. Facies symmetric. No perioral cyanosis. NECK: No JVD. JVP is at the level of the clavicle sitting upright. Carotid upstrokes are + 2 bilaterally. No bruits are noted. CHEST/LUNGS: Diminished breath sounds throughout, no obvious crackles or rales. CVS: S1 and S2 are irregularly irregular and tachycardic with an apical rate of 103 bpm, and a grade 1/6 apical systolic murmur. No obvious diastolic murmurs, gallops, or rubs. PMI is nondisplaced. No lifts, heaves, or thrills. No abdominal aortic or renal bruits. ABDOMINAL EXAM: Bowel sounds are present. No masses, organomegaly, or tenderness. EXTREMITIES: No clubbing or cyanosis. Trace bipedal and ankle edema. Intact posterior tibial and radial pulses bilaterally. NEUROLOGIC EXAM: Patient is awake, alert, interactive, and very talkative. Pleasant and cooperative. Speech is clear. Normal movement in all 4 extremities. Gait pattern was not assessed. TELEMETRY: -- Atrial Fibrillation with V rates currently 95 to 110 bpm. Results & Data ([facility]) Vital Signs (Past 12 Hours) Vital Signs Temp Pulse Resp BP Pulse Ox 07/16/19 07:13 36.7 C 106 H 20 149/96 H 96 07/16/19 03:59 36.5 C 62 18 121/89 96 07/15/19 23:44 36.9 C 97 H 18 131/93 97 Medications Administered Active Medications Generic Name Dose Route Start Last Admin Trade Name Freq PRN Reason Stop Dose Admin Acetaminophen 650 mg 07/12/19 18:08 Tylenol PO 08/11/19 18:07 Q4H PRN Pain or Fever Apixaban 2.5 mg 07/12/19 20:00 07/16/19 08:20 Eliquis PO 08/11/19 19:59 2.5 mg BID@0800,2000 MAURISIO Administration Digoxin 0.125 mg 07/13/19 16:15 07/15/19 17:10 Lanoxin PO 08/12/19 16:14 0.125 mg DAILY@1600 MAURISIO Administration Docusate Sodium 100 mg 07/12/19 18:08 Colace PO 08/11/19 18:07 BID PRN Constipation Folic Acid 1 mg 07/13/19 09:00 07/16/19 08:20 Folvite PO 08/12/19 08:59 1 mg QAM MAURISIO Administration Furosemide 40 mg 07/13/19 09:00 07/16/19 08:19 Lasix PO 08/12/19 08:59 40 mg QAM MAURISIO Administration Hydroxyzine HCl 25 mg 07/12/19 18:08 07/15/19 20:49 Vistaril PO 08/11/19 18:07 25 mg Q6H PRN Administration Anxiety Lisinopril 2.5 mg 07/13/19 09:00 07/16/19 08:19 Zestril PO 08/12/19 08:59 2.5 mg QAM MAURISIO Administration Metoprolol Succinate 200 mg 07/13/19 09:00 07/16/19 08:20 Toprol Xl PO 08/12/19 08:59 200 mg QAM MAURISIO Administration Metoprolol Succinate 50 mg 07/15/19 21:00 07/15/19 20:49 Toprol Xl PO 08/14/19 20:59 50 mg QPM MAURISIO Administration Ondansetron HCl 4 mg 07/12/19 18:08 Zofran IV 08/11/19 18:07 Q6H PRN Nausea Sertraline HCl 50 mg 07/13/19 09:00 07/16/19 08:19 Zoloft PO 08/12/19 08:59 50 mg QAM MAURISIO Administration Sertraline HCl 25 mg 07/13/19 09:00 07/16/19 08:19 Zoloft PO 08/12/19 08:59 25 mg QAM MAURISIO Administration Thiamine HCl 100 mg 07/13/19 09:00 07/16/19 08:20 Vitamin B-1 PO 08/12/19 08:59 100 mg QAM MAURISIO Administration PG Care Time/CCT Total # of Minutes Spent Total Time Spent with Patient: Total time spent is greater than 50% in coordination of care (as documented) at patient's floor/unit and/or counseling patient: Coding Level of Care Code 58507 Subseq Hosp Care Lvl 3 Diagnoses Atrial fibrillation with RVR I48.91 Fluid overload E87.70 Hypervolemia type: unspecified Mitral regurgitation I34.0 Elevated troponin R79.89 Chronic diastolic heart failure I50.32 (1) Fluid overload Hypervolemia type: unspecified Qualified Code(s): E87.70 - Fluid overload, unspecified
[2019-07-16] MEDS: DIGOXIN 0.125 MG TAB PO SCH (16:20)
--- NOTE | 2019-07-16 22:21 | Hospitalist Progress Note ---
Date of Service July 16, 2019 Assessment & Plan (1) Atrial fibrillation with RVR: Patient presenting in atrial fibrillation with rapid ventricular response. Diltiazem drip initiated in the ER, but brought her down to the 50-60 range. - Discussed with [facility] cardiology (Dr. Mcclendon) on 07/13. She had just seen Dr. Butcher in clinic. She had been going fast there, and he started digoxin. Continue home metoprolol Continue home Eliquis - Digoxin level was 0.3. Started digoxin on 07/13. Given her CKD, I did not want to load her heavily. -Metoprolol 50 mg was added overnight to 200 mg of metoprolol. -HR is still elevated. (2) Fluid overload: Acute on chronic diastolic CHF. Possibly some mild fluid overload in setting of A. fib with RVR. She was given 40 mg of Lasix IV in the ER. Echo in 05/2019 showed EF 40-45% with global hypokinesis. Monitor strict intake and output, daily weights - On 07/14, weight is 58.1 kg. No shortness of breath. No swelling. No crackles in bases. I believe she is euvolemic today (07/16). Continue home Lasix 40 mg PO daily (3) Hypoxia: Patient with new oxygen requirement, presently on 2 L nasal cannula with adequate saturation. She was quite anxious and tachypneic on admission. Treatment of A. fib and volume overload as above Wean O2 as able -> Now on room air. (4) Elevated troponin: Troponin = 0.083. Demand ischemia. Patient denies chest pain, no EKG evidence consistent with acute ischemia. Repeat was 0.06. No further trending. Follow up with Dr. Butcher outpatient. (5) CKD (chronic kidney disease) stage 3, GFR 30-59 ml/min: Baseline creatinine = 1.2 - 1.47, eGFR 45. - Monitor Cr -> Stable (6) Depression: Patient with history of major depressive disorder, acutely worsened after the loss of her . She has history of heavy alcohol consumption in the setting of grief. She is less anxious today. Good spirits. Continue sertraline at home dose (7) Anxiety: Anxious on presentation; much less so on my exam on 07/13. I do think her anxiety is playing a role in her shortness of breath as she reports asking for her albuterol every 1-2 hours at her assisted living facility. Continue sertraline at home dose of 75 mg p.o. every morning Trial hydroxyzine 25 mg p.o. every 6 hours as needed for anxiety (8) Hypertension: BP is 120/80 today. 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 I (John Hernandez) took care of her about 1 year ago when she was a very heavy drinker and went through significant withdrawal and confusion in the hospital. Continue p.o. thiamine 100 mg daily Delirium prevention strategies with frequent orientation, maintenance of sleep/wake cycle and avoidance of delirium producing medications - No confusion/delirium so far this admission. (10) DVT prophylaxis: On apixaban for her afib Admission and Anticipated Discharge Date Admission Date: July 12, 2019 Anticipated date of discharge: 07/15/19 Subjective 73 yo female reports doing well. She has no new complaints. Review of Systems Review of Systems: All systems reviewed & are unremarkable except as noted in HPI & below Physical Exam Physical Exam: Constitutional: WD/WN, vitals as above Eyes: EOM intact bilaterally; no conjunctival abnormality ENMT: external ear and nose normal, oropharynx normal Neck: trachea midline, no thyromegaly normal visual inspection Respiratory: normal respiratory effort, lungs clear to auscultation no respiratory distress Cardiovascular: Rate/Rhythm: + tachycardic and + irregularly irregular Heart Sounds: normal S1 and normal S2 Vessels: no JVD Extremities: no edema Gastrointestinal (Abdomen): Inspection/Auscultation: abdomen normal to inspection; abdomen not distended Musculoskeletal: no cyanosis or clubbing, extremities motor strength 5/5 Skin: no rashes, warm and dry Neurologic: moves all extremities and awake Psychiatric: Orientation: alert, oriented to person and cooperative Results & Data ([facility]) Vital Signs (Past 12 Hours) Vital Signs Temp Pulse Resp BP BP Pulse Ox 07/16/19 20:06 36.8 C 101 H 19 137/82 92 07/16/19 15:34 93 07/16/19 15:23 36.9 C 99 H 18 119/79 95 07/16/19 11:40 36.5 C 67 18 113/80 98 PG Care Time/CCT Total # of Minutes Spent Total Time Spent with Patient: Total time spent is greater than 50% in c oordination of care (as documented) at patient's floor/unit and/or counseling patient: Coding Level of Care Code 00142 Subseq Hosp Care Lvl 2 Diagnoses Atrial fibrillation with RVR I48.91 Fluid overload E87.70 Hypervolemia type: unspecified Hypoxia R09.02 Elevated troponin R79.89 CKD (chronic kidney disease) stage 3, GFR 30-59 ml/min N18.3 Depression F33.9 Active/Remission status: currently active Depression Type: major depressive disorder Major depression episode severity: unspecified Major depression recurrence: recurrent Anxiety F41.9 Hypertension I10 Hypertension type: essential hypertension Dementia F03.91 Dementia behavioral disturbance: with behavioral disturbance Dementia type: unspecified type DVT prophylaxis Z29.9 Time Spent (min) 25 (1) Dementia Dementia behavioral disturbance: with behavioral disturbance Dementia type: unspecified type Qualified Code(s): F03.91 - Unspecified dementia with behavioral disturbance (2) Depression Active/Remission status: currently active Depression Type: major depressive disorder Major depression episode severity: unspecified Major depression recurrence: recurrent Qualified Code(s): F33.9 - Major depressive disorder, recurrent, unspecified (3) Hypertension Hypertension type: essential hypertension Qualified Code(s): I10 - Essential (primary) hypertension (4) Fluid overload Hypervolemia type: unspecified Qualified Code(s): E87.70 - Fluid overload, unspecified
--- NOTE | 2019-07-17 08:46 | Cardiology Progress Note ---
Date of Service July 17, 2019 Assessment & Plan (1) Atrial fibrillation with RVR: (2) Fluid overload: (3) Mitral regurgitation: (4) Anticoagulant long-term use: (5) Cardiomyopathy: ASSESSMENT/PLAN: 1. Atrial fibrillation with rapid ventricular response: She has had multiple hospitalizations since April with multiple medication changes for her atrial fibrillation. Heart rate is currently adequately controlled while in bed. Nursing staff was asked to take her for walk later today and to monitor her heart rate. If heart rate is not adequately controlled on 300 mg of metoprolol succinate and digoxin, may consider adding amiodarone as rate control/rhythm control. LV systolic function is not unreasonable based on preliminary review on echo. Could also consider diltiazem now that LV systolic function appears improved. Continue anticoagulation for stroke risk reduction. 2. Anticoagulation: Her creatinine has improved. If her creatinine remains less than 1.5, would recommend Eliquis 5 mg twice daily. She did have issues with renal insufficiency in the recent past. 3. Mitral regurgitation: Reported as moderate to severe on transesophageal echo done within the past month at [facility]. Would monitor over time. Would recommend conservative management due to her significant dementia. 4. Cardiomyopathy: Could be due to tachycardia. Cannot rule out some involvement from her mitral regurgitation however her mitral regurgitation does not appear severe on preliminary review an echo today. Heart rate control important. Plan as above. Continue metoprolol succinate. Can titrate lisinopril as renal function allows. 5. Hypervolemia: It was reported that she was hypervolemic on presentation. SheDoes not appear hypervolemic currently. She is on oral Lasix. No changes recommended at this time. 6. Disposition: Cardiology will continue to follow. Admission and Anticipated Discharge Date Admission Date: July 12, 2019 Anticipated date of discharge: 07/15/19 Subjective Patient was alone in her hospital room. She denies chest pain, shortness of breath, syncope, near-syncope, palpitations, or edema. She said that she is hoping to go home today. She does not recall having a rapid heart rate however does appear more oriented today than she has at times in the past. Review of systems: As above. Physical Exam Physical Exam: Gen.: No acute distress. Alert and oriented x 3. HEENT: Anicteric sclera. Neck: No JVD. Cardiac: PMI was nondisplaced. No ventricular heave. Irregularly irregular but reasonable rate. Normal S1-S2. No murmurs, rubs, or gallops. Pulmonary: Clear to auscultation bilaterally without wheezes, rales, or rhonchi. Abdomen: Soft, nontender, nondistended, with normoactive bowel sounds. No bruits noted. Extremities: 2+ radial pulses bilaterally. 2+ posterior tibialis pulses bilaterally. Trace lower extremity edema. No cyanosis. Psychiatric: Affect appears appropriate. Results & Data ([facility]) Vital Signs (Past 12 Hours) Vital Signs Temp Pulse Pulse Resp BP Pulse Ox 07/17/19 07:28 37.2 C 89 18 113/92 98 07/17/19 04:48 36.8 C 80 18 130/68 95 07/17/19 01:59 88 07/16/19 23:09 36.4 C L 79 18 120/77 97 Laboratory Results Laboratory Results - last 72 hr 07/15/19 07:16 Sodium 138 Potassium 4.0 D Chloride 102 Carbon Dioxide 30 Anion Gap 7.0 BUN 37 H Creatinine 1.16 Est Cr Clr Drug Dosing 35.2 Est GFR ( Amer) 54.9 Est GFR (Non-Af Amer) 47.3 BUN/Creatinine Ratio 32.0 H Glucose 89 Calcium 9.3 Magnesium 1.9 Diagnostic Findings Echo performed on 07/17/2019 personally reviewed: Preliminary review suggests mildly reduced LV systolic function and probable moderate mitral regurgitation. Formal review to follow. Telemetry personally reviewed: Atrial fibrillation with reasonable heart rate control. No significant pauses. Medications Administered Current Inpatient Medications Acetaminophen (Tylenol) 650 mg PO Q4H PRN PRN Reason: Pain or Fever Stop: 08/11/19 18:07 Apixaban (Eliquis) 2.5 mg PO BID@0800,2000 [facility] Stop: 08/11/19 19:59 Last Admin: 07/16/19 20:15 Dose: 2.5 mg Documented by: Digoxin (Lanoxin) 0.125 mg PO DAILY@1600 [facility] Stop: 08/12/19 16:14 Last Admin: 07/16/19 16:20 Dose: 0.125 mg Documented by: Docusate Sodium (Colace) 100 mg PO BID PRN PRN Reason: Constipation Stop: 08/11/19 18:07 Folic Acid (Folvite) 1 mg PO QAM [facility] Stop: 08/12/19 08:59 Last Admin: 07/16/19 08:20 Dose: 1 mg Documented by: [facility] ([facility]) [facility] Stop: 08/12/19 08:59 Last Admin: 07/16/19 08:19 Dose: 40 mg Documented by: Hydroxyzine HCl (Vistaril) 25 mg PO Q6H PRN PRN Reason: Anxiety Stop: 08/11/19 18:07 Last Admin: 07/17/19 00:12 Dose: 25 mg Documented by: Lisinopril (Zestril) 2.5 mg PO [facility] Stop: 08/12/19 08:59 Last Admin: 07/16/19 08:19 Dose: 2.5 mg Documented by: Metoprolol Succinate (Toprol Xl) 200 mg PO [facility] Stop: 08/12/19 08:59 Last Admin: 07/16/19 08:20 Dose: 200 mg Documented by: Metoprolol Succinate (Toprol Xl) 100 mg PO QPM [facility] Stop: 08/15/19 20:59 Last Admin: 07/16/19 20:17 Dose: 100 mg Documented by: Ondansetron HCl (Zofran) 4 mg IV Q6H PRN PRN Reason: Nausea Stop: 08/11/19 18:07 Sertraline HCl (Zoloft) 50 mg PO [facility] Stop: 08/12/19 08:59 Last Admin: 07/16/19 08:19 Dose: 50 mg Documented by: Sertraline HCl (Zoloft) 25 mg PO [facility] Stop: 08/12/19 08:59 Last Admin: 07/16/19 08:19 Dose: 25 mg Documented by: Thiamine HCl (Vitamin B-1) 100 mg PO [facility] Stop: 08/12/19 08:59 Last Admin: 07/16/19 08:20 Dose: 100 mg Documented by: PG Care Time/CCT Total # of Minutes Spent Total Time Spent with Patient: Total time spent is greater than 50% in coordination of care (as documented) at patient's floor/unit and/or counseling patient: Coding Level of Care Code 94327 Subseq Hosp Care Lvl 3 Diagnoses Atrial fibrillation with RVR I48.91 Fluid overload E87.70 Hypervolemia type: unspecified Mitral regurgitation I34.0 Anticoagulant long-term use Z79.01 Cardiomyopathy I42.9 (1) Fluid overload Hypervolemia type: unspecified Qualified Code(s): E87.70 - Fluid overload, unspecified
[2019-07-17] MEDS: APIXABAN 2.5 MG TAB PO SCH (09:40)
[2019-07-17] MEDS: METOPROLOL SUCC 50MG EXT REL TAB PO SCH ×2 (09:41→20:31)
[2019-07-17] MEDS: SERTRALINE HCL 50 MG TABLET PO SCH ×2 (09:42→09:44)
[2019-07-17] MEDS: FUROSEMIDE 40 MG TAB PO SCH (09:43)
[2019-07-17] MEDS: FOLIC ACID 1 MG TAB PO SCH (09:43)
[2019-07-17] MEDS: THIAMINE HCL 100 MG TAB PO SCH (09:43)
--- NOTE | 2019-07-17 11:35 | XCELERA ---
[id number] \\[email or web address]_[email or web address]\[id number]
[2019-07-17] MEDS: dilTIAZem HCL 30 MG TAB PO SCH ×2 (14:14→16:58)
[2019-07-17] MEDS: DIGOXIN 0.125 MG TAB PO SCH (16:58)
[2019-07-17] MEDS: APIXABAN 5 MG TABLET PO SCH (20:30)
--- NOTE | 2019-07-17 21:55 | Hospitalist Progress Note ---
Date of Service July 17, 2019 Assessment & Plan (1) Atrial fibrillation with RVR: Patient presenting in atrial fibrillation with rapid ventricular response. Diltiazem drip initiated in the ER, but brought her down to the 50-60 range. - Discussed with [facility] cardiology (Dr. Mcclendon) on 07/13. She had just seen Dr. Butcher in clinic. She had been going fast there, and he started digoxin. Continue home metoprolol Continue home Eliquis - Digoxin level was 0.3. Started digoxin on 07/13. Given her CKD, I did not want to load her heavily. -Metoprolol 100 mg PM (50 additional mg was added) overnight to 200 mg of metoprolol. -HR is still elevated. -Will add diltiazem 30 mg PO Q6H. (2) Fluid overload: Acute on chronic diastolic CHF. Possibly some mild fluid overload in setting of A. fib with RVR. She was given 40 mg of Lasix IV in the ER. Echo in 05/2019 showed EF 40-45% with global hypokinesis. Monitor strict intake and output, daily weights - On 07/14, weight is 58.1 kg. No shortness of breath. No swelling. No crackles in bases. I believe she is euvolemic today (07/17). Continue home Lasix 40 mg PO daily (3) Hypoxia: Patient with new oxygen requirement, presently on 2 L nasal cannula with adequate saturation. She was quite anxious and tachypneic on admission. Treatment of A. fib and volume overload as above Wean O2 as able -> Now on room air. (4) Elevated troponin: Troponin = 0.083. Demand ischemia. Patient denies chest pain, no EKG evidence consistent with acute ischemia. Repeat was 0.06. No further trending. Follow up with Dr. Butcher outpatient. (5) CKD (chronic kidney disease) stage 3, GFR 30-59 ml/min: Baseline creatinine = 1.2 - 1.47, eGFR 45. - Monitor Cr -> Stable (6) Depression: Patient with history of major depressive disorder, acutely worsened after the loss of her . She has history of heavy alcohol consumption in the setting of grief. She is less anxious today. Good spirits. Continue sertraline at home dose (7) Anxiety: Anxious on presentation; much less so on my exam on 07/13. I do think her anxiety is playing a role in her shortness of breath as she reports asking for her albuterol every 1-2 hours at her assisted living facility. Continue sertraline at home dose of 75 mg p.o. every morning Trial hydroxyzine 25 mg p.o. every 6 hours as needed for anxiety (8) Hypertension: BP is 120/80 today. 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 I (John Hernandez) took care of her about 1 year ago when she was a very heavy drinker and went through significant withdrawal and confusion in the hospital. Continue p.o. thiamine 100 mg daily Delirium prevention strategies with frequent orientation, maintenance of sleep/wake cycle and avoidance of delirium producing medications - No confusion/delirium so far this admission. (10) DVT prophylaxis: On apixaban for her afib Admission and Anticipated Discharge Date Admission Date: July 12, 2019 Anticipated date of discharge: 07/15/19 Subjective 73 yo female reports feeling well. Patient has no new complaints. Patient though reports feeling SOB on exertion. Also updated son on the phone. Review of Systems Review of Systems: All systems reviewed & are unremarkable except as noted in HPI & below Physical Exam Physical Exam: Constitutional: WD/WN, vitals as above Eyes: EOM intact bilaterally; no conjunctival abnormality ENMT: external ear and nose normal, oropharynx normal Neck: trachea midline, no thyromegaly normal visual inspection Respiratory: normal respiratory effort, lungs clear to auscultation no respiratory distress Cardiovascular: Rate/Rhythm: + tachycardic and + irregularly irregular Heart Sounds: normal S1 and normal S2 Vessels: no JVD Extremities: no edema Gastrointestinal (Abdomen): Inspection/Auscultation: abdomen normal to inspection; abdomen not distended Musculoskeletal: no cyanosis or clubbing, extremities motor strength 5/5 Skin: no rashes, warm and dry Neurologic: moves all extremities and awake Psychiatric: Orientation: alert, oriented to person and cooperative Results & Data ([facility]) Vital Signs (Past 12 Hours) Vital Signs Temp Pulse Pulse Resp BP BP Pulse Ox 07/17/19 20:01 36.7 C 68 19 94/59 L 96 07/17/19 16:58 78 07/17/19 16:00 97 H 07/17/19 15:41 36.9 C 75 20 120/77 95 07/17/19 11:28 36.9 C 85 18 128/74 94 PG Care Time/CCT Total # of Minutes Spent Total Time Spent with Patient: Total time spent is greater than 50% in coordination of care (as documented) at patient's floor/unit and/or counseling patient: Coding Level of Care Code 54330 Subseq Hosp Care Lvl 3 Diagnoses Atrial fibrillation with RVR I48.91 Fluid overload E87.70 Hypervolemia type: unspecified Hypoxia R09.02 Elevated troponin R79.89 CKD (chronic kidney disease) stage 3, GFR 30-59 ml/min N18.3 Depression F33.9 Active/Remission status: currently active Depression Type: major depressive disorder Major depression episode severity: unspecified Major depression recurrence: recurrent Anxiety F41.9 Hypertension I10 Hypertension type: essential hypertension Dementia F03.91 Dementia behavioral disturbance: with behavioral disturbance Dementia type: unspecified type DVT prophylaxis Z29.9 Time Spent (min) 35 (1) Dementia Dementia behavioral disturbance: with behavioral disturbance Dementia type: unspecified type Qualified Code(s): F03.91 - Unspecified dementia with behavioral disturbance (2) Depression Active/Remission status: currently active Depression Type: major depressive disorder Major depression episode severity: unspecified Major depression recurrence: recurrent Qualified Code(s): F33.9 - Major depressive disorder, recurrent, unspecified (3) Hypertension Hypertension type: essential hypertension Qualified Code(s): I10 - Essential (primary) hypertension (4) Fluid overload Hypervolemia type: unspecified Qualified Code(s): E87.70 - Fluid overload, unspecified
[2019-07-18] MEDS: dilTIAZem HCL 30 MG TAB PO SCH ×2 (00:30→05:38)
--- NOTE | 2019-07-18 08:56 | Cardiology Progress Note ---
Date of Service July 18, 2019 Assessment & Plan (1) Atrial fibrillation with RVR: (2) Fluid overload: (3) Mitral regurgitation: (4) Anticoagulant long-term use: (5) Cardiomyopathy: ASSESSMENT/PLAN: 1. Atrial fibrillation with rapid ventricular response: Heart rate much better controlled with diltiazem. Recommend diltiazem 120 mg, extended-release, to replace 30 mg q.6 hours. Discontinue digoxin now that she has intermittent bradycardia. Digoxin has not likely hit peak level yet as she was not loaded and only started earlier this week. Concerned that if she remains on digoxin, she will have more profound bradycardia in the near future. Continue beta- edwin at current dose for now. Continue anticoagulation for stroke risk reduction. 2. Anticoagulation: Continue Eliquis 5 mg twice daily for stroke risk reduction. Anticoagulation therapy, risks and benefits, were discussed with her son yesterday and he was agreeable for her to remain on anticoagulation therapy. 3. Mitral regurgitation: Reported as moderate to severe on transesophageal echo done within the past month at [facility] and once again noted yesterday on repeat transthoracic echo. Conservative management recommended. This was discussed with her son, Nghia, and he was agreeable. 4. Cardiomyopathy: Could be due to tachycardia. Cannot rule out some involvement from her mitral regurgitation. LV systolic function appears improved compared to transesophageal echo report. Given concern that tachycardia is likely contributing to her reduced LV systolic function, continue beta-edwin and diltiazem as initiated yesterday. She appears euvolemic on exam. 5. Hypervolemia: It was reported that she was hypervolemic on presentation. She does not appear hypervolemic currently. She is on oral Lasix. No changes recommended at this time. 6. Disposition: Can be discharged today from a cardiac standpoint. Recommend ambulation in the hallway prior to discharge. Recommend close follow-up with Cardiology as an outpatient. Cardiology office has been contacted to arrange t his appointment. Plan of care discussed with primary hospitalist, Dr. Whittington. Admission and Anticipated Discharge Date Admission Date: July 12, 2019 Anticipated date of discharge: 07/15/19 Subjective She has no complaints. She denies chest pain, shortness of breath, palpitations, syncope, near-syncope, edema, or bleeding. She would like to go home today. Yesterday with ambulation in the hallway with nursing staff, her heart rate went up to as high as 160s according to nursing staff. After echo demonstrated improved LV systolic function, diltiazem was initiated. Since then her heart rate has been much better controlled and has dipped down into the 40s overnight transiently. She has mostly been near 60 bpm. She was alone in her hospital room. Review of systems: As above. Physical Exam Physical Exam: Gen.: No acute distress. Alert. HEENT: Anicteric sclera. Neck: No JVD. Cardiac: PMI was nondisplaced. No ventricular heave. Irregularly irregular near 60 bpm. Normal S1-S2. No murmurs, rubs, or gallops. Pulmonary: Clear to auscultation bilaterally without wheezes, rales, or rhonchi. Abdomen: Soft, nontender, nondistended, with normoactive bowel sounds. No bruits noted. Extremities: 2+ radial pulses bilaterally. 2+ posterior tibialis pulses bilaterally. Trace lower extremity edema. No cyanosis. Psychiatric: Affect appears appropriate. Results & Data ([facility]) Vital Signs (Past 12 Hours) Vital Signs Temp Pulse Pulse Resp BP Pulse Ox 07/18/19 07:46 37.0 C 64 18 134/79 94 07/18/19 04:08 36.4 C L 66 16 116/77 95 07/18/19 00:00 66 07/17/19 22:56 36.4 C L 60 16 105/62 96 Intake & Output 07/16/19 07/17/19 07/18/19 07/19/19 06:59 06:59 06:59 06:59 Intake Total 1094 / 1094 1140 / 1140 1060 / 1060 520 / 520 Output Total 2600 / 2600 2500 / 2500 1750 / 1750 400 / 400 Balance -1506 / -1506 -1360 / -1360 -690 / -690 120 / 120 Weight 57.6 kg 56.2 kg 56.5 kg Diagnostic Findings Telemetry personally reviewed: Atrial fibrillation with much improved heart rate control. Heart rate currently in the 60s but has been intermittently slower overnight after diltiazem was initiated. No significant pauses. Medications Administered Current Inpatient Medications Acetaminophen (Tylenol) 650 mg PO Q4H PRN PRN Reason: Pain or Fever Stop: 08/11/19 18:07 Apixaban (Eliquis) 5 mg PO BID@0800,2000 [facility] Stop: 08/16/19 19:59 Last Admin: 07/17/19 20:30 Dose: 5 mg Documented by: D[facility]iazem [facility] (Tiazac) [facility] Stop: 08/17/19 08:59 Docusate Sodium (Colace) 100 mg PO BID PRN PRN Reason: Constipation Stop: 08/11/19 18:07 Folic Acid (Folvite) [facility] [place] Stop: 08/12/19 08:59 Last Admin: 07/17/19 09:43 Dose: 1 mg Documented by: Furosemide (Lasix) 40 mg PO [facility] Stop: 08/12/19 08:59 Last Admin: 07/17/19 09:43 Dose: 40 mg Documented by: Hydroxyzine HCl (Vistaril) 25 mg PO Q6H PRN PRN Reason: Anxiety Stop: 08/11/19 18:07 Last Admin: 07/18/19 00:31 Dose: 25 mg Documented by: Lisinopril (Zestril) 2.5 mg PO [facility] Stop: 08/12/19 08:59 Last Admin: 07/17/19 09:43 Dose: 2.5 mg Documented by: Metoprolol Succinate (Toprol Xl) 200 mg PO [facility] Stop: 08/12/19 08:59 Last Admin: 07/17/19 09:41 Dose: 200 mg Documented by: Metoprolol Succinate (Toprol Xl) 100 mg PO QPM [facility] Stop: 08/15/19 20:59 Last Admin: 07/17/19 20:31 Dose: Not Given Documented by: Ondansetron HCl (Zofran) 4 mg IV Q6H PRN PRN Reason: Nausea Stop: 08/11/19 18:07 Sertraline HCl (Zoloft) 50 mg PO [facility] Stop: 08/12/19 08:59 Last Admin: 07/17/19 09:42 Dose: 50 mg Documented by: Sertraline HCl (Zoloft) [facility] [place] Stop: 08/12/19 08:59 Last Admin: 07/17/19 09:44 Dose: 25 mg Documented by: Thiamine HCl (Vitamin B-1) [facility] Stop: 08/12/19 08:59 Last Admin: 07/17/19 09:43 Dose: 100 mg Documented by: PG Care Time/CCT Total # of Minutes Spent Total Time Spent with Patient: Total time spent is greater than 50% in coordination of care (as documented) at patient's floor/unit and/or counseling patient: Coding Level of Care Code 50843 Subseq Hosp Care Lvl 3 Diagnoses Atrial fibrillation with RVR I48.91 Fluid overload E87.70 Hypervolemia type: unspecified Mitral regurgitation I34.0 Anticoagulant long-term use Z79.01 Cardiomyopathy I42.9 (1) Fluid overload Hypervolemia type: unspecified Qualified Code(s): E87.70 - Fluid overload, unspecified
[2019-07-18] MEDS ORDERED: dilTIAZem ER 120 MG CAPCR PO SCH (09:00)
[2019-07-18] MEDS: METOPROLOL SUCC 50MG EXT REL TAB PO SCH (09:01)
[2019-07-18] MEDS: SERTRALINE HCL 50 MG TABLET PO SCH ×2 (09:01→09:03)
[2019-07-18] MEDS: FOLIC ACID 1 MG TAB PO SCH (09:02)
[2019-07-18] MEDS: APIXABAN 5 MG TABLET PO SCH (09:02)
[2019-07-18] MEDS: THIAMINE HCL 100 MG TAB PO SCH (09:02)
[2019-07-18] MEDS: FUROSEMIDE 40 MG TAB PO SCH (09:02)
--- NOTE | 2019-07-18 11:12 | Discharge Summary ---
Date of Service July 18, 2019 Admission HPI Per Admitting Provider Karen Bradley is a 73-year-old female presenting [facility] with worsening shortness of breath and edema. Reported weight gain of 5 pounds overnight. Patient complains of cough productive for clear sputum as well as orthopnea, dizziness and weight gain. She denies chest pain/palpitations. Denies abdominal pain/nausea/vomiting but has had some loose stools lately. Patient recently admitted 06/14 through 06/16 with anasarca, altered mental status, atrial fibrillation and anuria. She was transferred to [facility] for possible hemodialysis. Patient did not require dialysis during that stay Per report, patient's heart rate was 150-180s prior to arrival to hospital today. Upon arrival she was afebrile, heart rate = 97, respiratory rate = 34, blood pressure = 138/113. She was hypoxic on room air to 89% was started on supplemental oxygen 2 L with adequate response. Presently 98%. She was started on diltiazem drip for heart rate control and is currently 100 bpm ER course: Diltiazem, magnesium, Lasix Principal Diagnosis A. fib WITH RVR Discharge Exam Constitutional: WD/WN, vitals as above Eyes: EOM intact bilaterally; no conjunctival abnormality ENMT: external ear and nose normal, oropharynx normal Neck: trachea midline, no thyromegaly normal visual inspection Respiratory: normal respiratory effort, lungs clear to auscultation no respiratory distress Cardiovascular: Rate/Rhythm: + tachycardic and + irregularly irregular Heart Sounds: normal S1 and normal S2 Vessels: no JVD Extremities: no edema Gastrointestinal (Abdomen): Inspection/Auscultation: abdomen normal to inspection; abdomen not distended Musculoskeletal: no cyanosis or clubbing, extremities motor strength 5/5 Skin: no rashes, warm and dry Neurologic: moves all extremities and awake Psychiatric: Orientation: alert, oriented to person and cooperative Discharge Data Allergies Allergy/AdvReac Type Severity Reaction Status Date / Time Penicillins Allergy Unknown CAN'T Verified 07/12/19 13:55 REMEMBER Macrolide Antibiotics Allergy Unknown Verified 07/12/19 13:55 [employer] Allergy Unknown CAN'T Uncoded 07/12/19 13:55 REMEMBER-SEE COMMENT Consultations 07/12/19 15:37 ED Decision to Admit Stat 02/24/20 10:53 Consult Cardiology Routine Hospital Course (1) Atrial fibrillation with RVR: Patient presenting in atrial fibrillation with rapid ventricular response. Diltiazem drip initiated in the ER, but brought her down to the 50-60 range. - Patient was seen by [facility] initially but was later determined to be [facility] cardio patient. -HR was difficult to control and was initially placed on DIGOXIN. -However her HR did not improve. Metoprolol was gradually increased from 200 mg daily to 300 mg daily. Despite this combination of dig and toprol, HR was still in the 100s at rest and 130 on ambulation. On day prior to discharge, added diltiazem 30 mg PO Q6H. This finally improved the HR, overnight though patient was bradycardic in the 40s and it was deemed to stop the dig. Patient will be discharged on diltiazem 120 mg ER once daily with the metoprolol 300 mg daily (divided in 200 and 100 mg dose). Patient ambulated and HR was controlled. (2) Fluid overload: Acute on chronic diastolic CHF. Possibly some mild fluid overload in setting of A. fib with RVR. She was given 40 mg of Lasix IV in the ER. Echo in 05/2019 showed EF 40-45% with global hypokinesis. Monitor strict intake and output, daily weights - On 07/14, weight is 58.1 kg. No shortness of breath. No swelling. No crackles in bases. I believe she is euvolemic today (07/17). Continue home Lasix 40 mg PO daily (3) Hypoxia: Patient with new oxygen requirement, presently on 2 L nasal cannula with adequate saturation. She was quite anxious and tachypneic on admission. Treatment of A. fib and volume overload as above Wean O2 as able -> Now on room air. (4) Elevated troponin: Troponin = 0.083. Demand ischemia. Patient denies chest pain, no EKG evidence consistent with acute ischemia. Repeat was 0.06. No further trending. Follow up with [facility] cardio as an outpatient. (5) CKD (chronic kidney disease) stage 3, GFR 30-59 ml/min: Baseline creatinine = 1.2 - 1.47, eGFR 45. - Monitor Cr -> Stable (6) Depression: Patient with history of major depressive disorder, acutely worsened after the loss of her . She has history of heavy alcohol consumption in the setting of grief. She is less anxious today. Good spirits. Continue sertraline at home dose (7) Anxiety: Anxious on presentation; much less so on my exam on 07/13. I do think her anxiety is playing a role in her shortness of breath as she reports asking for her albuterol every 1-2 hours at her assisted living facility. Continue sertraline at home dose of 75 mg p.o. every morning Trial hydroxyzine 25 mg p.o. every 6 hours as needed for anxiety (8) Hypertension: BP is 120/80 today. 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 I (John Hernandez) took care of her about 1 year ago when she was a very heavy drinker and went through significant withdrawal and confusion in the hospital. Continue p.o. thiamine 100 mg daily Delirium prevention strategies with frequent orientation, maintenance of sleep/wake cycle and avoidance of delirium producing medications - No confusion/delirium so far this admission. (10) DVT prophylaxis: On apixaban for her afib Increased to 5 mg PO BID as creatinine improved. Total Time Total Time Spent Total Time Spent (In Minutes): 35 Total Time Includes: Examination of the Patient, Discharge Planning and Medication Reconciliation Discharge Plan Discharge Items Patient Disposition: Home - Home Health Services Reason For Visit: AF WITH RVR,SOB Discharge Diagnosis: Atrial fibrillation Activity: Resume your previous activity Activity Comment: continue PT at [facility] Non-emergency contact: Primary Care Provider Call non-emergency contact if: you have any medication questions Follow-up/Referrals: Nathan Alex [Primary Care Provider] - (PLEASE FOLLOW UP WITH DR MONTES OFFICE ON 07/25/2019 @ 2:00PM) Diet: Heart Healthy Addtl Attending Provider Instructions: You have been hospitalized for an acute medical problem. During your stay at [facility], we have made an effort to correct the problem that brought you to the hospital while keeping you as comfortable as possible. Medications were used to bring your condition under control and your discharge instructions will include directions for any medications you should take after leaving the hospital. Please make sure you see your Primary Care Provider as part of your follow up plan. Pending Studies at Discharge: No Stand-Alone Forms: My [facility], Smoking Cessation Medications and DC Order Prescriptions: New metoprolol succinate 50 mg Tablet Extended Release 24 Hr 100 mg PO QPM Qty: 30 RF: 0 diltiazem HCl [Taztia XT] 120 mg Capsule,Extended Release 24 Hr 120 mg PO QAM Qty: 30 RF: 0 Eliquis 5 mg Tablet 5 mg PO BID@0800,2000 Qty: 60 RF: 0 Continued albuterol sulfate [Ventolin HFA] 90 mcg/actuation HFA aerosol inhaler 2 puff INHALATION Q4H PRN (Reason: sob) RF: 0 furosemide 40 mg Tablet 40 mg PO QAM RF: 0 metoprolol succinate 100 mg tablet extended release 24 hr 200 mg PO QAM RF: 0 sertraline 50 mg Tablet 50 mg PO QAM RF: 0 lisinopril 2.5 mg Tablet 2.5 mg PO QAM RF: 0 sertraline 25 mg Tablet 25 mg PO QAM Qty: 30 RF: 0 folic acid 1 mg Tablet 1 mg PO QAM Qty: 30 RF: 0 biotin 1,000 mcg Tablet,Chewable 1,000 mcg PO QAM Qty: 30 RF: 0 thiamine HCl (vitamin B1) [Vitamin B-1] 100 mg tablet 100 mg PO QAM RF: 0 docusate sodium 100 mg tablet 100 mg PO QAM RF: 0 Discontinued Eliquis 5 mg tablet 2.5 mg PO BID RF: 0 Discharge Orders: Discharge Order (Routine); Ordered 07/18/19 Ordered By: Dedrick Whittington Admission Data Admit Date/Time: 07/12/19 16:20 Attending Provider: Dedrick Whittington Admit Provider: Ruth Reed Primary Care Provider: Nathan Alex Other Providers: John Hernandez ; Zayn[facility],Home [facility] ; Alex Diaz Coding Level of Care Code D/C Day Management >30 mins Diagnoses Atrial fibrillation with RVR I48.91 Fluid overload E87.70 Hypervolemia type: unspecified Hypoxia R09.02 Elevated troponin R79.89 CKD (chronic kidney disease) stage 3, GFR 30-59 ml/min N18.3 Depression F33.9 Active/Remission status: currently active Depression Type: major depressive disorder Major depression episode severity: unspecified Major depression recurrence: recurrent Anxiety F41.9 Hypertension I10 Hypertension type: essential hypertension Dementia F03.91 Dementia behavioral disturbance: with behavioral disturbance Dementia type: unspecified type DVT prophylaxis Z29.9
--- NOTE | 2019-07-19 16:44 | Coding Query ---
CODING QUERY To promote full compliance with coding requirements relating to patient care, provider participation is requested in all cases of client services administrator uncertainty. Please assist us with the question(s) below: Coding Question(s): Acute on chronic diastolic CHF was listed under fluid overload throughout the record however upon admission it was noted that chest x-ray does not support CHF and patient did not seem to be in florid failure. Also documented "possible fluid overload in setting of a fib with RCR." Please indicate below the cause of the patient's fluid overload. Physician's Response(s): (x ) Fluid overload due to acute on chronic diastolic CHF ( ) Fluid overload in the setting of A. fib with RVR ( ) Fluid overload due to other known cause (please specify) As HPI is the first encounter , it is difficult to obtain a definisitve diagnosis. if later documentations note Acute on Chronic CHF, then this is the cause. I appreciate your input. Thank you Bess Lowery Principal Diagnosis: "that condition established after study, to be chiefly responsible for occasioning the admission of the patient to the hospital for care." Co-Existing Principal Diagnosis: "when two or more diagnoses equally meet the criteria for principal diagnosis as determined by the circumstances of admission, diagnostic work up, and/or therapy provided, and the Alphabetic Index, Tabular List, or another coding guideline does not provide sequencing direction, any one of the diagnoses may be sequenced first." "When the physician has documented what appears to be a current diagnosis in the body of the record, but has not included the diagnosis in the final diagnostic statement, the physician should be asked whether the diagnosis should be added." (Source Coding Clinic 2 QTR90. p3-4) AUDRA
== END 2019-07-18 18:20 | disposition home health service (06) | DRG 308 ==
LOC: ED 12:25 → 2E 16:20 → SUATTDRO 16:20 → 2E 17:22 → 2W 07-18 15:11